=== PATIENT | female | born 1945 | race Caucasian/White ===

== ENCOUNTER → 2018-09-20 11:45 | Outpatient (CLI) | payer MEDICARE, SELFPAY ==
--- NOTE | 2018-09-20 11:52 | BI_ITS ---
MAMMOGRAPHY - BILATERAL SCREENING REASON FOR EXAM: Female, 73 years old. Routine annual screening examination. PERTINENT HISTORY: Non-contributory. Remote right stereotactic breast biopsy. TECHNIQUE: Digital bilateral breast debby (3D mammographic acquisition) in the CC and MLO projections. 2-D mediolateral oblique (MLO) and craniocaudad (CC) views of both breasts were obtained. CAD: Full Field Digital Mammography with Computer Added Detection was performed. COMPARISON: Comparison is made with prior study dated August 24, 2017 and August 21, 2016. FINDINGS: Breast Composition: The breasts are almost entirely fatty. There are no dominant masses or suspicious calcifications. Once again, a tissue clip marker is seen in the deep retroareolar region of the right breast. No other significant abnormalities are identified. There has been no significant change since the prior study. BI/SCREENING MAMM (CAD), BILAT IMPRESSION: Stable bilateral screening mammogram. Yearly follow-up mammogram recommended. (A) ASSESSMENT CATEGORY: BIRADS Category 2: Benign. A letter regarding these results will be sent to the patient by the facility within 30 days. Approximately 10% of breast cancers are not detected by mammography. A normal mammogram should not delay biopsy of a clinically suspicious abnormality. [id number] Electronically Signed: Jim Watters MD at 14:14 EST Tel [phone], Service support ,
== END ==
PROVIDERS: Family Provider Family Medicine; PCP Family Medicine; Referring Provider Family Medicine; Visit Provider Family Medicine
DX: Z12.31 Encounter for screening mammogram for malignant neoplasm of breast (principal)
CPT/HCPCS: 77063; 77067

== ENCOUNTER → 2018-10-09 13:11 | Outpatient (CLI) | payer MEDICARE, OTHER, SELFPAY ==
[2018-10-03 10:27] VITALS: BMI 50.1
--- NOTE | 2018-10-09 13:16 | CT_ITS ---
STUDY: CT ABDOMEN AND PELVIS WITH AND WITHOUT CONTRAST REASON FOR EXAM: Female, 73 years old. Gross hematuria. History of pulmonary hypertension. RADIATION DOSAGE (If Supplied By Facility): CTDIvol = ( 31.32 ) mGy, DLP = ( 2855.81 ) mGycm TECHNIQUE: Transaxial images were obtained from the dome of the diaphragm to the symphysis pubis without oral contrast. 100CC ml of Isovue 300 contrast was administered. Sagittal and coronal images were reconstructed. Individualized dose optimization techniques were used for this CT. COMPARISON: None. FINDINGS: The visualized lung bases are unremarkable. The visualized portions of the heart are within normal limits. There is decreased attenuation of the liver consistent with steatosis. Normal gallbladder and extrahepatic biliary system. There are multiple benign calcified granulomata of the spleen. Normal pancreas. Normal bilateral adrenal glands. Normal right kidney. Normal left kidney. The stomach is distended with residual food. Gastroparesis should be ruled out. Normal small intestine. Normal colon. The appendix is visualized and appears normal. There is diffuse atherosclerotic calcification of the abdominal aorta, without a demonstrated aneurysm. Normal inferior vena cava. There is borderline retroperitoneal lymphadenopathy with enlarged nodes no greater than 10mm in the short axis diameter. Small bilateral benign-appearing inguinal lymph nodes. Normal urinary bladder. Normal abdominal wall. There are diffuse degenerative changes of the visualized lumbar spine. Status post right hip replacement. CT/CT Abd/Pelvis W/WO Contrast IMPRESSION: Gastric distention with air and residual food. Electronically Signed: Jim Watters MD at 15:51 EST , Service support ,
--- OUTSIDE RECORDS SUMMARY | 2018-12-11 12:16 | XMS RPT_ITS ---
:1945 Author Organization OHIP Care Team Providers Name Role Phone YOLANDE CHAIREZ) Attending Unavailable YOLANDE CHAIREZ) Referring Unavailable YOLANDE CHAIREZ) Referring Unavailable THELMA SINGH Attending Unavailable ROYA DUCKWORTH (VACUUM COOKER OPERATOR) Referring Unavailable THELMA SINGH Referring Unavailable THELMA [...] Referring Unavailable BURSYOLANDE RAMIREZ) Referring Unavailable LUCIA, SFOIYA (PT) Attending Unavailable YOLANDE CHAIREZ) Referring Unavailable LUCIA, SOFIYA (PT) Attending Unavailable YOLANDE CHAIREZ) Referring Unavailable LUCIA, SOFIYA (PT) Attending Unavailable YOLANDE CHAIREZ) Referring Unavailable THELMA SINGH Attending Unavailable ROYA DUCKWORTH (VACUUM COOKER OPERATOR) Referring Unavailable LUCIA, SOFIYA (PT) Attending Unavailable [...] 10/07/2018 Active Gross hematuria / NA Active [facility] R31.0(ICD-10) [place] Repository 10/03/2018 Unknown I44.4 - Left MoodispaAlbaro martinez 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 / Hospital I44.4(ICD-10) Repository 10/03/2018 Unknown I45.10 - MoodispajuanAlbaro Active [place] Unspecified right [facility] bundle-branch Hospital block / Repository I45.10(ICD-10) 10/03/2018 Unknown I48.0 - Paroxysmal Moodisry Albaro Active [facility] atrial [facility] fibrillation [facility] I48.0(ICD-10) Repository 10/03/2018 Unknown I10 - Essential MoodisryAlbaro Active [facility] (primary) [facility] hypertension / Hospital I10(ICD-10) Repository 09/11/2018 Active Paroxysmal atrial NA Active [facility] fibrillation / [place] I48.0(ICD-10) Repository 09/11/2018 Active Obstructive sleep NA Active [facility] apnea (adult) [place] (pediatric) / Repository G47.33(ICD-10) 04/01/2018 Active Pain in left hip / NA Active [facility] M25.552(ICD-10) [place] Repository 03/26/2018 Active Other custodial NA Active [facility] (current) drug [facility] [place] therapy / Repository Z79.899(ICD-10) 03/04/2018 Active Other secondary NA Active [facility] pulmonary [facility] [place] hypertension / Repository I27.29(ICD-10) 02/21/2018 Active Unknown / THELMA SINGH Active [facility] UNK(Unknown) [place] Repository 01/03/2016 Active Essential NA Active [facility] (primary) [place] hypertension / Repository I10(ICD-10) 10/26/2010 Active Vitamin D NA Active [facility] deficiency, [place] unspecified / Repository E55.9(ICD-10) PROCEDURES PROCEDURES No Procedure Records FoundRESULTS RESULTS STRESS REPORT Observed: 10/11/2018 Status: F Source: [place] 9:05 AM [facility] REPOSITORY [facility] Cardiovascular Services [address] [place] [address] MR#: [id number] Acct: [id number] Name: VENICE CROFT Rep #: [id number] : 1945 73 From: Albaro Neville MD [...] not performed. This note was generated with Toptal dictation software. It may contain incorrect words, spelling, and punctuation that were not noted in checking the note before signing. 10/11/18904 <Electronically signed by Albaro Neville MD> Date Albaro Neville MD CC: Jose Miguel Chairez MD; Albaro Neville MD Date Dictated: 10/11/18901 Date Transcribed: 10/11/18901 Wharfinger Chief: PM Signed CT ABD/PELVIS W/WO Observed: 10/09/2018 Status: F Source: [place] CONTRAST 1:16 PM [facility] REPOSITORY [facility] Imaging Services [address] [place] [address] Abd/Pelvis W/WO Contrast MR#: [id number] Acct: [id number] Name: VENICE CROFT Rep #: [id number] : 1945 F 73 From: Jim Watters MD PCP: Jose Miguel Chairez MD Status: REG CLI Study: CT Abd/Pelvis W/WO Contrast Date of Exam: 10/09/18 Exam# [id number] Ordering Dr: Roslyn Garcia MANAGER AGRICULTURE-C STUDY: CT ABDOMEN AND PELVIS WITH AND [...] Jose Miguel Chairez MD; Roslyn Garcia NP Wharfinger Chief: Signed CBC AND DIFFERENTIAL Collected: 10/07/2018 Status: F Source: [place] 4:14 PM [facility] REPOSITORY TYPE CODE TESTS RESULT [...] k/uL Abs Lymph 1.38 LAB AMONO % [place]% 8.0 LAB AAMONO <0.87 k/uL Abs [place] 0.48 LAB AEOS % Eosin% 2.2 LAB AAEOS <0.46 k/uL Abs Eosin 0.13 LAB ABASO % Baso% 0.3 LAB AABASO <0.11 k/uL Abs Baso <0.03 LAB AUNRBC 0 /100 WBC NRBCs 0.0 LAB ABNRBC <0.01 k/uL Absolute nRBC <0.01 LAB DTYP DTYPE Auto Diff Performed By: #### CBCDIF, BMP #### [facility] [address] [place], [place] [address] BASIC METABOLIC PANL Collected: 10/07/2018 Status: F Source: [place] 4:14 PM [facility] REPOSITORY TYPE CODE TESTS RESULT OUT OF REFERENCE UNITS RANGE LAB GLU 74-99 mg/dL High Glucose 100 Result Comment: The [place] Diabetes Association (ADA) provides guidance for cutoff [...] Standards of Medical Care in Diabetes 2016, [place] Diabetes Association. Diabetes Care. 2016.39(Suppl 1). LAB [...] GFR. Performed By: #### CBCDIF, BMP #### [facility] [address] [place], [place] [address] PROGRESS Observed: 10/06/2018 Status: COMPLETED Source: [place] 12:36 PM [facility] REPOSITORY HNO ID: [id number] Author: Sofiya (Pt) Lucia Service: (none) Author [...] assessment of patient's response to intervention. Billing: [facility]: Manual Therapy (01355): 1:1 time: 45 minutes (3 units: 38-52 mins) Total time: 45 minutes Sofiya Myers PT CNTHERAPY Observed: 10/04/2018 Status: COMPLETED Source: [place] 1:15 PM [facility] REPOSITORY OT/PT/Speech Visit (PTWS) VENICE CROFT ([id number]) 1945 F Date Time Provider Department 10/04/18 1:15 PM SOFIYA MYERS (PT) PTWS Date Time Provider Department Center 10/04/2018 1:15 PM [id number], DIANA (PT)PTWS [facility] [place] Reason for Visit: Physical Therapy [503] Primary Visit Diagnosis:Pain in left hip [M25.552] Other Visit Diagnosis:Pain in the groin, left [R10.32] Allergies As of Date: 10/04/2018 Noted Allergy Reaction DANIEL INHIBITORS 06/15/2005 7 - Swelling Comments: Angioedema. Lips. LIPITOR (ATORVASTATIN CALCIUM) 06/15/2005 Comments: Muscle aches PANAFIL ([id number]-[id number]-[id number]*08/18/2005 5 - Intolerance Comments: ? AMPICILLIN 06/15/2005 [...] assessment of patient's response to intervention. Billing: [facility]: Manual Therapy (22477): 1:1 time: 45 minutes (3 units: 38-52 mins) Total time: 45 minutes Sofiya Myers PT Observed: 10/04/2018 Status: F Source: [place] URINE CULTURE 11:42 AM [facility] REPOSITORY Sp. Request/Comment: - Specimen received in preservative Culture Result - No growth (<1,000 CFU/ml) Performed By: #### URCUL #### [facility] [address] [place] [address] PROGRESS Observed: 10/04/2018 Status: COMPLETED Source: [place] 11:16 AM [facility] REPOSITORY HNO ID: [id number] Author: Janae Schneider Service: (none) Author Type: Physician Cable Installation Manager Type: Progress Notes Filed: 10/04/2018 2:22 PM [...] Morbid obesity with BMI of 50.0-59.9, adult ([facility]) - On home oxygen therapy - Open wound of knee, leg (except thigh), and ankle, complicated - JUSTINA (obstructive sleep apnea) BiPAP 13/8 nightly - Pulmonary hypertension (HCC) Seeing Dr. Singh - Pure hypercholesterolemia - Unspecified essential hypertension - Venous stasis dermatitis ALLERGIES Daniel Inhibitors; Lipitor [Atorvastatin Calcium]; Panafil [Ezewzs-Yroa-Bqmxrfqehtfys]; Ampicillin; Darvocet-N 100 [Propoxyphene N-Acetaminophen]; Percocet [Oxycodone-Acetaminophen] [...] 0 Occupational History Occupation Employer Comment Retired [employer] Social History Main Topics Smoking status: Never [...] coumadin. Urology consult scheduled for patient with [facility] for Sunday afternoon. We will send Cardiology update. - UA DIP, URINE (POC) - URINE CULTURE - CONSULT TO UROLOGY 2. Hematuria, unspecified type - ICD9: 599.70, ICD10: R31.9 See above. - UA DIP, URINE (POC) KOFI MARSHALL Observed: 10/04/2018 Status: COMPLETED Source: [place] 11:00 AM [facility] REPOSITORY Office Visit (FAMPWS) VENICE CROFT ([id number]) 1945 F Date Time Provider Department 10/04/18 [...] Morbid obesity with BMI of 50.0-59.9, adult ([facility]) - On home oxygen therapy - Open wound of knee, leg (except thigh), and ankle, complicated - JUSTINA (obstructive sleep apnea) BiPAP 29/04 nightly - Pulmonary hypertension ([facility]) Seeing Dr. Singh - Pure hypercholesterolemia - Unspecified essential hypertension - Venous stasis dermatitis ALLERGIES Daniel Inhibitors; Lipitor [Atorvastatin Calcium]; Panafil [Hfukjd-Uemq-Udqfrenjwthhm]; Ampicillin; Darvocet-N 100 [Propoxyphene N-Acetaminophen]; Percocet [Oxycodone-Acetaminophen] [...] 0 Occupational History Occupation Employer Comment Retired [employer] Social History Main Topics Smoking status: Never [...] coumadin. Urology consult scheduled for patient with [facility] for Sunday afternoon. We will [...] (ATORVASTATIN CALCIUM) 06/15/2005 Comments: Muscle aches PANAFIL ([id number]*08/18/2005 5 - Intolerance Comments: ? AMPICILLIN 06/15/2005 [...] 90 capsuleRfl: 3 UA DIP, URINE (POC) [[id number]] Order #: [id number] URINE CULTURE [SQURCUL] Order #: [id number] CONSULT TO UROLOGY [9495] Order #: [id number]: 1 Prescriptions as of 10/04/2018 Sig: WARFARIN [...] Hypertension [I10] INVALID FOR*06/13/2016 BMI 50.0-59.9, adult ([facility]) [Z68.43] INVALID FOR*06/16/2014 JUSTINA (obstructive sleep apnea) [G47.33] INVALID FOR* Pulmonary hypertension (HCC) [I27.20] INVALID FOR* BMI 45.0-49.9, adult (HCC) [Z68.42] INVALID FOR*10/15/2014 BMI 40.0-44.9, adult ([facility]) [Z68.41] INVALID FOR*03/28/2017 More... Allergic rhinitis [J30.9] [...] [R10.32] INVALID FOR* PAF (paroxysmal atrial fibrillation) ([facility]) [I48*INVALID FOR* Prescriptions ordered this encounter Disp [...] TIME W/INR Collected: 10/03/2018 Status: F Source: [place] [address]:10 PM [facility] REPOSITORY Order Comment: Comments: STANDING ORDER Comments: STANDING ORDER TYPE CODE TESTS RESULT OUT OF RANGE REFERENCE UNITS LAB L300.4150 11.7-14.9 SECONDS High PROTIME 26.9 LAB L300.4200 Normal INR 2.5 Performed By: #### L300.3900 #### [facility] [address] [place], [place], [address] BASIC METABOLIC Collected: 10/03/2018 Status: F Source: [place] PROFILE (BMP) 12:10 PM [facility] REPOSITORY TYPE CODE TESTS RESULT OUT OF [...] GAP 9 Performed By: #### L500.2500 #### [facility] [address] [place], [address] CARDIOLOGY VISIT Observed: 10/03/2018 Status: F Source: [place] REPORT 11:48 AM [facility] REPOSITORY [facility] [address] [place] [address] OFFICE VISIT Date of Service: 10/03/18 MR#: [id number] Acct: [id number] Name: VENICE CROFT Rep #: [id number] : 1945 Provider: Albaro Neville MD Age/Sex: 73/F Location: [facility] Status: Signed HPI HPI Details: VENICE CROFT, is a 73 F who presents to the office today for Outpatient cardiovascular consultation for concerns of underlying atrial fibrillation. 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 She was subsequently found to be in atrial fibrillation by ECG demonstrating left axis deviation with a right bundle branch block pattern and a left anterior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 pattern as well as potentially voltage criteria for LVH and a lateral [place] of indeterminate age which could not be [...] block. There is notation of possible lateral [place] of indeterminate age. She did have a transthoracic echocardiogram performed through the [facility] system. Per the report available for review [...] [History Confirmed 10/03/18] Fluticasone 0.05% [Flonase Nasal [place]] 1 spray NASAL DAILY 11/10/16 [History Confirmed [...] NC, BIPAP Follows with Dr. Thelma Singh, banking and finance instructor @ [facility]: Negative vomiting or [...] Observed: 10/03/2018 Status: F Source: [place] BY [facility] 10:22 AM [facility] REPOSITORY [facility] [address] [place] [address] 12 Lead EKG performed by [facility] 10/03/18 102 MR#: [id number] Acct: [id number] Name: VENICE CROFT Rep #: [id number] : 1945 73 From: Albaro Neville MD Attending Dr: Albaro Neville MD Status: DEP AMB Ordering Dr: Albaro Neville MD Date: 10/03/18 [place] [facility] F C Admitted: [facility]/12 Lead EKG performed by [facility] ECG Report Interpretation Atrial flutter-fibrillation - occasional ectopic ventricular beat Left axis deviationRight bundle branch blockLeft anterior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Anterior [place], age undetermined, cannot be excludedABNORMAL Electronically signed on 10/03/2018 at 18:19 by Albaro Neville Software Version 8610 10/03/18 1820 Date Albaro Neville MD CC: Jose Miguel Chairez MD Date Dictated: 10/03/18 102 Date Transcribed: 10/03/18 102 Wharfinger Chief: PM Signed PROGRESS Observed: 09/30/2018 Status: COMPLETED Source: [place] 9:48 AM [facility] REPOSITORY HNO ID: [id number] Author: Thelma Singh Service: (none) Author Type: Physician Type: Progress Notes Filed: 09/30/2018 9:58 AM Note Text: [facility] Respiratory [place], 09/03/2018 INTERVAL HISTORY: Patient is noticing increasing [...] to follow this result. Thelma Singh MD, [facility] [place] [facility] [address] [place] [address] P: [phone] F: [phone] [email or web address] PROTIME Collected: 09/27/2018 Status: F Source: [place] 11:36 AM [facility] REPOSITORY TYPE CODE TESTS RESULT OUT OF RANGE REFERENCE UNITS LAB PSEC 9.7-13.0 sec High PT Sec 26.8 LAB INR 0.9-1.3 High PT INR 2.7 Result Comment: Vitamin K Antagonist (VKA) Therapeutic Range: INR 2 to 3 (Target INR of 2.5) Note: For patients treated with VKA drugs, such as warfarin, the [place] [employer]icians 2012 Guideline recommends [...] Chest 2012, 141:7S-47S Leo CORNEJO et al. [facility] 2017, 70: 252-289 Performed By: #### PT #### [facility] [address] [place], [place] [address] PROGRESS Observed: 09/24/2018 Status: COMPLETED Source: [place] 2:11 PM [facility] REPOSITORY HNO ID: [id number] Author: Sofiya (Pt) Lucia Service: (none) Author [...] at this time Goals updated on 09/24/2018. [place] in home exercise program. Patient will decrease [...] to be seen for Therapeutic exercise;Manual therapy;Patient/Family/Caregiver Education;Self-long-term management;General Conditioning;Neuromuscular re-education PLAN FOR NEXT VISIT: [...] and assessment of patient's response to intervention. Self-Custodial Management: 1: Recommended she apply Eucerin, Aveeno, [...] Suggested she call her compression pump company ([employer]) to have them perform a pressure check on her pump. 4: Showed and demonstrated how to don her compression stocking by turning inside out. Skilled Intervention: Skilled judgment in the selection of proper modification for activity of daily living/home management based on clinical presentation, deficits, and needs. Billing: [facility]: Re-Evaluation (24846) Manual Therapy (14846): 1:1 time: 22 minutes (1 unit: 8-22 mins) Educ Home Mgmt (62748): 1:1 time: 8 minutes (1 unit: 8-22 mins) Total time: 45 minutes Sofiya Myers PT CNTHERAPY Observed: 09/24/2018 Status: COMPLETED Source: [place] 2:00 PM [facility] REPOSITORY OT/PT/Speech Visit (PTWS) VENICE CROFT ([id number]) 1945 F Date Time Provider Department 09/24/18 2:00 PM SOFIYA MYERS (PT) PTWS Date Time Provider Department Center 09/24/2018 2:00 PM [id number], DIANA (PT)PTWS [facility] Reason for Visit: PT Re-eval [891] Primary Visit Diagnosis:Lymphedema [I89.0] Other Visit Diagnoses:Pain in the groin, left [R10.32] Pain in left hip [M25.552] Allergies As of Date: 09/24/2018 Noted Allergy Reaction DANIEL INHIBITORS 06/15/2005 7 - Swelling Comments: Angioedema. Lips. LIPITOR (ATORVASTATIN CALCIUM) 06/15/2005 Comments: Muscle aches PANAFIL (WWXYSX-IHNU-[id number]*08/18/2005 5 - Intolerance Comments: ? AMPICILLIN 06/15/2005 [...] at this time Goals updated on 09/24/2018. [place] in home exercise program. Patient will decrease [...] to be seen for Therapeutic exercise;Manual therapy;Patient/Family/Caregiver Education;Self-long-term management;General Conditioning;Neuromuscular re-education PLAN FOR NEXT VISIT: [...] and assessment of patient's response to intervention. Self-Custodial Management: 1: Recommended she apply Eucerin, Aveeno, [...] Suggested she call her compression pump company ([employer]) to have them perform a pressure check on her pump. 4: Showed and demonstrated how to don her compression stocking by turning inside out. Skilled Intervention: Skilled judgment in the selection of proper modification for activity of daily living/home management based on clinical presentation, deficits, and needs. Billing: [facility]: Re-Evaluation (51385) Manual Therapy (74714): 1:1 time: 22 minutes (1 unit: 8-22 mins) Educ Home Mgmt (34327): 1:1 time: 8 minutes (1 unit: 8-22 mins) Total time: 45 minutes Sofiya Myers PT Previous Version PROTIME Collected: 09/24/2018 Status: F Source: [place] 1:10 PM [facility] REPOSITORY TYPE CODE TESTS RESULT OUT OF RANGE REFERENCE UNITS LAB PSEC 9.7-13.0 sec High PT Sec 26.8 LAB INR 0.9-1.3 High PT INR 2.7 Result Comment: Vitamin K Antagonist (VKA) Therapeutic Range: INR 2 to 3 (Target INR of 2.5) Note: For patients treated with VKA drugs, such as warfarin, the [place] [employer]icians 2012 Guideline recommends [...] 70: 252-289 Performed By: #### PT #### [facility] [address] [place], [place] [address] SCREENING MAMM (CAD), Observed: 09/20/2018 Status: F Source: [place] 11:52 AM [facility] REPOSITORY [facility] Imaging Services [address] [place] [address] SCREENING MAMM (CAD), BILAT MR#: [id number] Acct: [id number] Name: VENIEC CROFT Rep #: [id number] : 1945 F 73 From: Jim Watters MD PCP: Jose Miguel Chairez MD Status: [facility] Study: SCREENING MAMM (CAD), BILAT Date of Exam: 09/20/18 Exam# [id number] Ordering Dr: Jose Miguel Chairez MD MAMMOGRAPHY [...] delay biopsy of a clinically suspicious abnormality. [id number] Electronically Signed: Jim Watters MD at 14:14 EST Tel [phone], Service support , CC: Jose Miguel Chairez MD Wharfinger Chief: Signed PROGRESS Observed: 09/20/2018 Status: COMPLETED Source: [place] 11:01 AM [facility] REPOSITORY HNO ID: [id number] Author: Sofiya (Pt) Lucia Service: (none) Author [...] L groin pain. Recommended she see an grievance and appeals specialist due to her plateauing. Patient does seem to have increased hardness of the skin of her LE and is not finding her legs are softening after using her compression pump. Recommending she be re-evaluated for her lymphedema. Message sent to Dr. Ramos to place an order in [employer]. She will benefit from continued skilled therapy requiring re-evaluation of her legs for CDT in order to improve skin texture and decrease risk of skin infection. Functional gains: Increased independence with HEP Decreased intensity of pain Goals updated on 09/19/2018. [place] in home exercise program.--MET for current HEP [...] Current Status: Mobility: Walking and Moving Around: [address] [place] [address] 20-39% impaired Goal Status: Mobility: Walking and Moving Around: G8979 20-39% impaired Planned Interventions, Frequency, and Duration: 1 visit, 1 week Total Number of Visits Planned: 16 Patient to be seen for Therapeutic exercise;Manual therapy;Patient/Family/Caregiver Education;Self-long-term management;General Conditioning;Neuromuscular re-education PLAN FOR NEXT VISIT: [...] assessment of patient's response to intervention. Billing: [facility]: Therapeutic Exercise (98102): 1:1 time: 18 minutes (1 unit: 8-22 mins) Manual Therapy (70696): 1:1 time: 23 minutes (2 units: 23- 37 mins) Total time: 41 minutes Sofiya Myers PT CNTHERAPY Observed: 09/19/2018 Status: COMPLETED Source: [place] 10:00 AM [facility] REPOSITORY OT/PT/Speech Visit (PTWS) VENICE CROFT ([id number]) 1945 F Date Time Provider Department 09/19/18 10:00 AM SOFIYA MYERS (PT) PTWS Date Time Provider Department Center 09/19/2018 10:00 AM [id number], DIANA (PT)PTWS [facility] Reason for Visit: PT Progress Note [7856] Primary Visit Diagnosis:Pain in left hip [M25.552] Other Visit Diagnosis:Pain in the groin, left [R10.32] Allergies As of Date: 09/19/2018 Noted Allergy Reaction DANIEL INHIBITORS 06/15/2005 7 - Swelling Comments: Angioedema. Lips. LIPITOR (ATORVASTATIN CALCIUM) 06/15/2005 Comments: Muscle aches PANAFIL ([id number]-WKQE-[id number]*08/18/2005 5 - Intolerance Comments: ? AMPICILLIN 06/15/2005 [...] That Will Oversee The Plan Of Care: Soifya Myers PT Start of Care Date: 04/12/18 [...] L groin pain. Recommended she see an grievance and appeals specialist due to her plateauing. Patient does seem to have increased hardness of the skin of her LE and is not finding her legs are softening after using her compression pump. Recommending she be re-evaluated for her lymphedema. Message sent to Dr. Ramos to place an order in [employer]. She will benefit from continued skilled therapy requiring re-evaluation of her legs for CDT in order to improve skin texture and decrease risk of skin infection. Functional gains: Increased independence with HEP Decreased intensity of pain Goals updated on 09/19/2018. [place] in home exercise program.--MET for current HEP [...] to be seen for Therapeutic exercise;Manual therapy;Patient/Family/Caregiver Education;Self-long-term management;General Conditioning;Neuromuscular re-education PLAN FOR NEXT VISIT: [...] assessment of patient's response to intervention. Billing: [facility]: Therapeutic Exercise (46242): 1:1 time: 18 minutes (1 unit: 8-22 mins) Manual Therapy (83040): 1:1 time: 23 minutes (2 units: 23- 37 mins) Total time: 41 minutes Sofiya Myers PT PROTIME Collected: 09/19/2018 Status: F Source: [place] 9:47 AM [facility] REPOSITORY TYPE CODE TESTS RESULT OUT OF RANGE REFERENCE UNITS LAB PSEC 9.7-13.0 sec High PT Sec 21.6 LAB INR 0.9-1.3 High PT INR 2.2 Result Comment: Vitamin K Antagonist (VKA) Therapeutic Range: INR 2 to 3 (Target INR of 2.5) Note: For patients treated with VKA drugs, such as warfarin, the [place] [employer] Chest [employer]icians 2012 Guideline recommends [...] Chest 2012, 141:7S-47S Leo RA, et al. [facility] 2017, 70: 252-289 Performed By: #### PT #### [facility] [address] [place], [place] [address] PROTIME Collected: 09/16/2018 Status: F Source: [place] 9:31 AM [facility] REPOSITORY TYPE CODE TESTS RESULT OUT OF RANGE REFERENCE UNITS LAB PSEC 9.7-13.0 sec High PT Sec 15.6 LAB INR 0.9-1.3 High PT INR 1.5 Result Comment: Vitamin K Antagonist (VKA) Therapeutic Range: INR 2 to 3 (Target INR of 2.5) Note: For patients treated with VKA drugs, such as warfarin, the [place] [employer]icians 2012 Guideline recommends [...] Chest 2012, 141:7S-47S Leo CORNEJO et al. [facility] 2017, 70: [phone] Performed By: #### PT #### [facility] [address], [place] [address] FECAL OCCULT BLD Collected: 09/12/2018 Status: F Source: [place] TST 8:30 AM [facility] REPOSITORY TYPE CODE TESTS RESULT OUT OF REFERENCE UNITS RANGE LAB IFO Negative Immuno Negative FOB Result Comment: This test was developed and its performance characteristics determined by [facility]'s [facility] [place] ([facility] It has not been cleared or approved by the FDA. -[facility] is regulated under CLIA as qualified to perform high-complexity testing. This test is used for clinical purposes. It should not be regarded as investigational or for research. Performed By: #### IFOBT #### [facility] [address], [place] [address] PROGRESS Observed: 09/11/2018 Status: COMPLETED Source: [place] 4:20 PM [facility] REPOSITORY HNO ID: [id number] Author: Devonte Horta Service: (none) Author Type: [...] met Beta keron for ASHD with prior [place] or prior LVEF<40 (NQF 0070) - N/A [...] Morbid obesity with BMI of 50.0-59.9, adult ([facility]) - On home oxygen therapy - Open [...] multiple, benign - COLONOSCOP W/ OR W/O [facility] SPEC N/A 11/14/2016 repeat in 2 [...] 0 Occupational History Occupation Employer Comment Retired [employer] Social History Main Topics Smoking status: Never [...] MD CNNURSE Observed: 09/11/2018 Status: COMPLETED Source: [place] 3:30 PM [facility] REPOSITORY Nurse Visit (CAWSTR) VENICE CROFT ([id number]) 1945 F Date Time Provider Department 09/11/18 3:30 PM [facility] During your visit today, we recorded the following information about you: Referring Provider: DEVONTE HORTA [[id number]] Allergies As of Date: 09/11/2018 Noted Allergy Reaction DANIEL INHIBITORS 06/15/2005 7 - Swelling Comments: Angioedema. Lips. LIPITOR (ATORVASTATIN CALCIUM) 06/15/2005 Comments: Muscle aches PANAFIL ([id number]*08/18/2005 5 - Intolerance Comments: ? AMPICILLIN 06/15/2005 2 - Rash Comments: Bilateral arms. DARVOCET-N 100 (PROPOXYPHENE N-AC*01/31/2010 1 - Mental Status Change 14 - Other: See Comments Comments: Dizziness. PERCOCET (OXYCODONE-ACETAMINOPHEN)01/31/2010 1 - Mental Status Change Date Reviewed: 09/03/2018 Reviewed by: Thelma Singh - Fully Assessed Reason for Visit: Nurse Visit [792] Visit Diagnoses:PAF (paroxysmal atrial fibrillation) ([facility]) [I48.0] Essential hypertension [I10] Prescriptions as of [...] 09/12/18 PROTIME Collected: 09/11/2018 Status: F Source: [place] 12:05 PM [facility] REPOS[facility]ORY TYPE CODE TESTS RESULT OUT OF RANGE REFERENCE UNITS LAB PSEC 9.7-13.0 sec PT Sec 10.3 LAB INR 0.9-1.3 PT INR 1.0 Result Comment: Vitamin K Antagonist (VKA) Therapeutic Range: INR 2 to 3 (Target INR of 2.5) Note: For patients treated with VKA drugs, such as warfarin, the [place] [employer] 2012 Guideline recommends [...] Chest 2012, 141:7S-47S Leo CORNEJO et al. [facility] 2017, 70: 252-289 Performed By: #### PT #### [facility] [address] [place], [place] [address] BASIC METABOLIC PANL Collected: 09/11/2018 Status: F Source: [place] 12:04 PM [facility] REPOSITORY TYPE CODE TESTS RESULT OUT OF [...] GFR. MAGNESIUM Collected: 09/11/2018 Status: F Source: [place] 12:04 PM [facility] REPOSITORY TYPE CODE TESTS RESULT OUT OF REFERENCE UNITS RANGE LAB MG 1.7-2.3 mg/dL Magnesium 1.8 CBC Collected: 09/11/2018 Status: F Source: [place] 12:04 PM [facility] REPOSITORY TYPE CODE TESTS RESULT OUT OF [...] nRBC <0.01 Performed By: #### CBC #### [facility] [address] [place], [place] [address] TSH Collected: 09/11/2018 Status: F Source: [place] 12:03 PM [facility] REPOSITORY TYPE CODE TESTS RESULT OUT OF RANGE REFERENCE UNITS LAB TSH 0.400-5.500 uU/mL TSH 2.500 Performed By: #### TSH #### [facility] [address], [place] [address] EKG1 Observed: 09/11/2018 Status: F Source: [place] 11:36 AM [facility] REPOSITORY NAME : VENICE CROFT PID : [id number] : 1945 Gender : Female Race : [...] ms QTC Calculation(Bezet) : 497 ms R Wallace : -57 degrees T Wallace : 22 degrees Test Reason : Location : 136 : [place] Overread By : DEVONTE HORTA MD Edited By : DEVONTE HORTA MD Referred By : DEVONTE HORTA Acquired by : SWATI BAKER Observed: 09/11/2018 Status: COMPLETED Source: [place] 10:30 AM [facility] REPOSITORY Office Visit (CAWSTR) VENICE CROFT ([id number]) 1945 F Date Time Provider Department 09/11/18 [...] met Beta keron for ASHD with prior [place] or prior LVEF<40 (NQF 0070) - N/A [...] 0 Occupational History Occupation Employer Comment Retired [employer] Social History Main Topics Smoking status: Never [...] the following areas and commit to making custodial changes. EAT A WHOLE FOOD, PLANT BASED [...] in your area. Referring Provider: DEVONTE HORTA [[id number]] Allergies As of Date: 09/11/2018 Noted Allergy Reaction DNAIEL INHIBITORS 06/15/2005 7 - Swelling Comments: Angioedema. Lips. LIPITOR (ATORVASTATIN CALCIUM) 06/15/2005 Comments: Muscle aches PANAFIL ([id number]*08/18/2005 5 - Intolerance Comments: ? AMPICILLIN 06/15/2005 [...] Order(s):ECG COMPLETE W INTERPRETATION [ECG01] Order #: [id number] FUTURE PROTHROMBIN TIME/PT [SQPT] Order #: [id number] STANDING BASIC METABOLIC PNL [SQBMP] Order #: [id number] FUTURE MAGNESIUM BLD [SQMG1] Order #: [id number] FUTURE TSH BLD [SQTSH] Order #: [id number] FUTURE CBC [SQCBC] Order #: [id number] FUTURE FECAL OCCULT BLOOD TEST [SQIFOBT] Order #: [id number] FUTURE warfarin (COUMADIN) 4 mg tabletTake 1 [...] the following areas and commit to making custodial changes. EAT A WHOLE FOOD, PLANT BASED [...] 09/11/18 PROGRESS Observed: 09/05/2018 Status: COMPLETED Source: [place] 10:24 AM [facility] [place] REPOSITORY HNO ID: [id number] Author: Sofiya Myers Service: (none) Author Type: [...] her L hip. Nedra has the wrap constitution party at nondenominational; she will be sitting for [...] assessment of patient's response to intervention. Billing: [facility]: Therapeutic Exercise (15259): 1:1 time: 37 minutes (2 units: 23-37 mins) Manual Therapy (45670): 1:1 time: 8 minutes (1 unit: 8-22 mins) Total time: 45 minutes Sofiya Myers PT CNTHERAPY Observed: 09/03/2018 Status: COMPLETED Source: [place] 11:45 AM [facility] REPOSITORY OT/PT/Speech Visit (PTWS) VENICE CROFT ([id number]) 1945 F Date Time Provider Department 09/03/18 11:45 AM SOFIYA MYERS (PT) PTWS Date Time Provider Department Center 09/03/2018 11:45 AM [id number], DIANA (PT)PTWS [facility] Reason for Visit: Physical Therapy [503] Primary Visit Diagnosis:Pain in left hip [M25.552] Other Visit Diagnosis:Pain in the groin, left [R10.32] Allergies As of Date: 09/03/2018 Noted Allergy Reaction DANIEL INHIBITORS 06/15/2005 7 - Swelling Comments: Angioedema. Lips. LIPITOR (ATORVASTATIN CALCIUM) 06/15/2005 Comments: Muscle aches PANAFIL ([id number]-[id number]-[id number]*08/18/2005 5 - Intolerance Comments: ? AMPICILLIN 06/15/2005 [...] her legs. Doing an echo cardiogram after [place] to get her heart checked out. Yesterday and today seem easier for patient to move. Standing for greater than 60 minutes stuffing stockings went ok. Had to sit down because tired but had no sharp pains in her L hip. Nedra has the wrap constitution party at nondenomin[employer]; she will be sitting for [...] assessment of patient's response to intervention. Billing: [facility]: Therapeutic Exercise (66035): 1:1 time: 37 minutes (2 units: 23-37 mins) Manual Therapy (53466): 1:1 time: 8 minutes (1 unit: 8-22 mins) Total time: 45 minutes Sofiya Myers PT SWATI Observed: 09/03/2018 Status: COMPLETED Source: [place] 9:30 AM [facility] REPOSITORY Office Visit (PULMWS) ZEKEVENICE ([id number]) 1945 F Date Time Provider Department 09/03/18 9:30 AM THELMA SINGH During your visit today, we recorded the following information about you: Pulse Respiration Blood pressure Weight 76/minute 20/minute 118/68 136.5 kg Yenifer Myers LPN 09/03/2018 9:41 AM Attested Attestation signed by Thelma Singh at 09/30/2018 9:48 AM Reviewed with patient, [...] GI: denies heartburn. denies dysphagia. denies diarrhea. 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 denies hesitancy. denies nocturia. Menses: [...] to follow this result. Thelma Singh MD, [facility] [address] [address] P: [phone] F: [phone] [email or web address] Thelma Singh MD 09/30/2018 9:58 AM Signed [facility], 09/03/2018 INTERVAL HISTORY: Patient is noticing increasing [...] to follow this result. Thelma Singh MD, [facility] Respiratory [place] [facility] [address] [place] [address] P: [phone] F: [phone] Referring Provider: ROYA DUCKWORTH ([facility]) [[id number]] Allergies As of Date: 09/03/2018 Noted Allergy Reaction DANIEL INHIBITORS 06/15/2005 7 - Swelling Comments: Angioedema. Lips. LIPITOR (ATORVASTATIN CALCIUM) 06/15/2005 Comments: Muscle aches PANAFIL ([id number]*08/18/2005 5 - Intolerance Comments: ? AMPICILLIN 06/15/2005 [...] BiPAP [G47.33] Morbid obesity (HCC) [E66.01] Order(s):ECHO [898067] Order #: [id number]: 1 FUTURE Prescriptions as of 09/03/2018 Sig: [...] to follow this result. Thelma Singh MD, [facility] [place] [facility] [address] [place] [address] P: [phone] F: [phone] [email or web address] Visit Notes: >> Yenifer Myers LPN john Sep 03, 2018 9:23 AM Status: Attested [...] GI: denies heartburn. denies dysphagia. denies diarrhea. 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 denies hesitancy. denies nocturia. Menses: post menopausal Musculoskeletal: notes groin and hip pain. Currently attending PT. Neuro: denies headache, denies focal weakness. denies tremor. Skin: denies rash. Otherwise negative. Follow Up: Discussed this visit Follow-up and Disposition History Recorded Encounter Status:Closed by THELMA SINGH MD on 09/30/18 PROGRESS Observed: 08/26/2018 Status: COMPLETED Source: [place] 10:30 AM [facility] REPOSITORY [facility] ID: [id number] Author: Sofiya (Pt) Lucia Service: (none) Author [...] assessment of patient's response to intervention. Billing: [facility]: Therapeutic Exercise (62190): 1:1 time: 32 minutes (2 units: 23-37 mins) Manual Therapy (10711): 1:1 time: 8 minutes (1 unit: 8-22 mins) Total time: 40 minutes Sofiya Myers PT CNTHERAPY Observed: 08/22/2018 Status: COMPLETED Source: [place] 2:45 PM [facility] REPOSITORY OT/PT/Speech Visit (PTWS) VENICE CROFT ([id number]) 1945 F Date Time Provider Department 08/22/18 2:45 PM SOFIYA MYERS (PT) PTWS Date Time Provider Department Center 08/22/2018 2:45 PM [id number], DIANA (PT)PTWS [facility] Reason for Visit: Physical Therapy [503] Primary Visit Diagnosis:Pain in left hip [M25.552] Other Visit Diagnosis:Pain in the groin, left [R10.32] Allergies As of Date: 08/22/2018 Noted Allergy Reaction DANIEL INHIBITORS 06/15/2005 7 - Swelling Comments: Angioedema. Lips. LIPITOR (ATORVASTATIN CALCIUM) 06/15/2005 Comments: Muscle aches PANAFIL ([id number]*08/18/2005 5 - Intolerance Comments: ? AMPICILLIN 06/15/2005 [...] assessment of patient's response to intervention. Billing: [facility]: Therapeutic Exercise (13382): 1:1 time: 32 minutes (2 units: 23-37 mins) Manual Therapy (69610): 1:1 time: 8 minutes (1 unit: 8-22 mins) Total time: 40 minutes Sofiya Myers PT PROGRESS Observed: 08/13/2018 Status: COMPLETED Source: [place] 10:24 AM [facility] REPOSITORY O ID: [id number] Author: Sofiya (Pt) Lucia Service: (none) Author [...] from mat table Goals updated on 08/13/2018. [place] in home exercise program.--MET for current HEP [...] Goal Status: Mobility: Walking and Moving Around: G89[facility] 20-39% impaired Progress Report: 08/13/2018 Current Status: Mobility: Walking and Moving Around: G89[facility] 20-39% impaired Goal Status: Mobility: Walking and Moving Around: G8979 20-39% impaired Planned Interventions, Frequency, and Duration: 1x/week, 4 weeks Total Number of Visits Planned: 16 Patient to be seen for Therapeutic exercise;Manual therapy;Patient/Family/Caregiver Education;Modalities;Self- long-term management;Functional training;General Conditioning;Gait Training;Neuromuscular re-education;Therapeutic activitiesUltrasound PLAN [...] assessment of patient's response to intervention. Billing: [facility]: Therapeutic Exercise (47955): 1:1 time: 37 minutes (2 units: 23-37 mins) Manual Therapy (25139): 1:1 time: 8 minutes (1 unit: 8-22 mins) Total time: 45 minutes Sofiya Myers PT CNTHERAPY Observed: 08/13/2018 Status: COMPLETED Source: [place] 10:00 AM [facility] REPOSITORY OT/PT/Speech Visit (PTWS) VENICE CROFT ([id number]) 1945 F Date Time Provider Department 08/13/18 10:00 AM SOFIYA MYERSPT) PTWS Date Time Provider Department Center 08/13/2018 10:00 AM [id number], DIANA (PT)PTWS [facility] Reason for Visit: PT Progress Note [1596] Primary Visit Diagnosis:Pain in left hip [M25.552] Other Visit Diagnosis:Pain in the groin, left [R10.32] Allergies As of Date: 08/13/2018 Noted Allergy Reaction DANIEL INHIBITORS 06/15/2005 7 - Swelling Comments: Angioedema. Lips. LIPITOR (ATORVASTATIN CALCIUM) 06/15/2005 Comments: Muscle aches PANAFIL ([id number]*08/18/2005 5 - Intolerance Comments: ? AMPICILLIN 06/15/2005 [...] from mat table Goals updated on 08/13/2018. [place] in home exercise program.--MET for current HEP [...] be seen for Therapeutic exercise;Manual therapy;Patient/Family/Caregiver Education;Modalities;Self- long-term management;Functional training;General Conditioning;Gait Training;Neuromuscular re-education;Therapeutic activitiesUltrasound PLAN [...] assessment of patient's response to intervention. Billing: [facility]: Therapeutic Exercise (21793): 1:1 time: 37 minutes (2 units: 23-37 mins) Manual Therapy (63860): 1:1 time: 8 minutes (1 unit: 8-22 mins) Total time: 45 minutes Sofiya Myers PT PROGRESS Observed: 08/10/2018 Status: COMPLETED Source: [place] 12:05 [facility] REPOSITORY O ID: [id number] Author: Sofiya Myers Service: (none) Author Type: [...] assessment of patient's response to intervention. Billing: [facility]: Therapeutic Exercise (78342): 1:1 time: 35 minutes (2 units: 23-37 mins) Manual Therapy (79562): 1:1 time: 15 minutes (1 unit: 8-22 mins) Total time: 50 minutes Sofiya Myers PT CNTHERAPY Observed: 08/06/2018 Status: COMPLETED Source: [place] 10:00 AM [facility] REPOSITORY OT/PT/Speech Visit (PTWS) VENICE CROFT ([id number]) 1945 F Date Time Provider Department 08/06/18 10:00 AM SOFIYA MYERSPT) PTWS Date Time Provider Department Center 08/06/2018 10:00 AM [id number], DIANA (PT)PTWS [facility] Reason for Visit: Physical Therapy [503] Primary Visit Diagnosis:Pain in left hip [M25.552] Other Visit Diagnosis:Pain in the groin, left [R10.32] Allergies As of Date: 08/06/2018 Noted Allergy Reaction DANIEL INHIBITORS 06/15/2005 7 - Swelling Comments: Angioedema. Lips. LIPITOR (ATORVASTATIN CALCIUM) 06/15/2005 Comments: Muscle aches PANAFIL ([id number]*08/18/2005 5 - Intolerance Comments: ? AMPICILLIN 06/15/2005 [...] assessment of patient's response to intervention. Billing: [facility]: Therapeutic Exercise (04936): 1:1 time: 35 minutes (2 units: 23-37 mins) Manual Therapy (89939): 1:1 time: 15 minutes (1 unit: 8-22 mins) Total time: 50 minutes Sofiya Myers PT COMP METABOLIC PANEL Collected: 08/01/2018 Status: F Source: [place] 10:20 AM [facility] [place] REPOSITORY TYPE CODE TESTS RESULT OUT OF REFERENCE UNITS RANGE LAB TP 6.3-8.0 g/dL Protein, Total 7.2 LAB ALB 3.9-4.9 g/dL Albumin 4.2 LAB CA 8.5-10.2 mg/dL Calcium, Total 9.3 LAB TBIL 0.2-1.3 mg/dL Bilirubin, Total 0.5 LAB ALKP 34-123 U/L Alkaline Phosphatase 62 LAB AST 13-35 U/L AST 16 LAB GLU 74-99 mg/dL Glucose High 100 Result Comment: The [place] [employer] (ADA) provides guidance for cutoff [...] Standards of Medical Care in Diabetes 2016, [place] [employer]. Diabetes Care. 2016.39(Suppl 1). LAB [...] actual GFR. Performed By: #### CMP #### [facility] [address] [place], [place] [address] CNOV Observed: 08/01/2018 Status: COMPLETED Source: [place] 9:40 AM [facility] REPOSITORY Office Visit (FAMPWS) VENICE CROFT ([id number]) 1945 F Date Time Provider Department 08/01/18 [...] Morbid obesity with BMI of 50.0-59.9, adult ([facility]) - On home oxygen therapy - Open wound of knee, leg (except thigh), and ankle, complicated - JUSTINA (obstructive sleep apnea) uses bipap nightly - Pulmonary hypertension ([facility]) Seeing Dr. Singh - Pure hypercholesterolemia - Unspecified essential hypertension - Venous stasis dermatitis Previous Surgical History PAST SURGICAL HISTORY Procedure Laterality Date - BX OF BREAST; INCISIONAL Bx of breast, incisional multiple, benign - COLONOSCOP W/ OR W/O [facility] SPEC N/A 11/14/2016 repeat in 2 [...] 0 Occupational History Occupation Employer Comment Retired [employer] Social History Main Topics Smoking status: Never [...] for annual exam in one year. - [facility] SCREENING Yolande Chairez MD Referring Provider: YOLANDE CHAIREZ) [[id number]] Allergies As of Date: 08/01/2018 Noted Allergy Reaction DANIEL INHIBITORS 06/15/2005 7 - Swelling Comments: Angioedema. Lips. LIPITOR (ATORVASTATIN CALCIUM) 06/15/2005 Comments: Muscle aches PANAFIL ([id number]*08/18/2005 5 - Intolerance Comments: ? AMPICILLIN 06/15/2005 [...] [Z12.31] Order(s):COMP METABOLIC PANEL [SQCMP] Order #: [id number] FUTURE ENEDELIA SCREENING [[id number]] Order #: [id number] FUTURE Prescriptions as of 08/01/2018 Sig: SIMVASTATIN [...] 08/01/18 PROGRESS Observed: 08/01/2018 Status: COMPLETED Source: [place] 9:34 AM [facility] REPOSITORY HNO ID: [id number] Author: Yolande Foss) Mihaela Service: (none) Author [...] apnea) uses bipap nightly - Pulmonary hypertension ([facility]) Seeing Dr. Singh - Pure hypercholesterolemia - Unspecified essential hypertension - Venous stasis dermatitis Previous Surgical History PAST SURGICAL HISTORY Procedure Laterality Date - BX OF BREAST; INCISIONAL Bx of breast, incisional multiple, benign - COLONOSCOP W/ OR W/O [facility] SPEC N/A 11/14/2016 repeat in 2 [...] 0 Occupational History Occupation Employer Comment Retired [employer] Social History Main Topics Smoking status: Never [...] MD PROGRESS Observed: 07/31/2018 Status: COMPLETED Source: [place] 1:45 PM [facility] REPOSITORY HNO ID: [id number] Author: Sofiya (Pt) Lucia Service: (none) Author [...] assessment of patient's response to intervention. Billing: [facility]: Therapeutic Exercise (07331): 1:1 time: 27 minutes (2 units: 23-37 mins) Manual Therapy (57254): 1:1 time: 18 minutes (1 unit: 8-22 mins) Total time: 45 minutes Sofiya Myers PT PROGRESS Observed: 07/31/2018 Status: COMPLETED Source: [place] 9:30 AM [facility] [place] REPOSITORY HNO ID: [id number] Author: Bruce Rinaldi Service: (none) Author Type: [...] for MRSE infection, prosthetic right knee PLAN: Npycsynwakc303 mg daily, indefinite Follow-up one year SIGNATURE: Bruce Rinaldi MD DATE: July 31, 2018 TIME: 9:48 AM Copy to: [place] [id number] [facility] [address] CNTHERAPY Observed: 07/30/2018 Status: COMPLETED Source: [place] 10:00 AM [facility] REPOSITORY OT/PT/Speech Visit (PTWS) VENICE CROFT ([id number]) 1945 F Date Time Provider Department 07/30/18 10:00 AM SOFIYA MYERS (PT) PTWS Date Time Provider Department Center 07/30/2018 10:00 AM [id number], DIANA (PT)PTWS [facility] Reason for Visit: Physical Therapy [503] Primary Visit Diagnosis:Pain in left hip [M25.552] Other Visit Diagnosis:Pain in the groin, left [R10.32] Allergies As of Date: 07/30/2018 Noted Allergy Reaction DANIEL INHIBITORS 06/15/2005 7 - Swelling Comments: Angioedema. Lips. LIPITOR (ATORVASTATIN CALCIUM) 06/15/2005 Comments: Muscle aches PANAFIL ([id number]*08/18/2005 5 - Intolerance Comments: ? AMPICILLIN 06/15/2005 [...] assessment of patient's response to intervention. Billing: [facility]: Therapeutic Exercise (11685): 1:1 time: 27 minutes (2 units: 23-37 mins) Manual Therapy (45584): 1:1 time: 18 minutes (1 unit: 8-22 mins) Total time: 45 minutes Sofiya Myers PT PROGRESS Observed: 07/25/2018 Status: COMPLETED Source: [place] 11:02 AM [facility] RE[facility]IT[facility] HNO ID: [id number] Author: Sofiya Myers Service: (none) Author Type: [...] assessment of patient's response to intervention. Billing: [facility]: Therapeutic Exercise (53480): 1:1 time: 30 minutes (2 units: 23-37 mins) Manual Therapy (91617): 1:1 time: 15 minutes (1 unit: 8-22 mins) Total time: 45 minutes Sofiya Myers PT CNTHERAPY Observed: 07/25/2018 Status: COMPLETED Source: [place] 9:15 AM [facility] REPOSITORY OT/PT/Speech Visit (PTWS) VENICE CROFT ([id number]) 1945 F Date Time Provider Department 07/25/18 9:15 AM SOFIYA MYERSPT) PTWS Date Time Provider Department Center 07/25/2018 9:15 AM [id number], DIANA (PT)PTVICKEY [facility] Reason for Visit: Physical Therapy [503] Primary Visit Diagnosis:Pain in left hip [M25.552] Other Visit Diagnosis:Pain in the groin, left [R10.32] Allergies As of Date: 07/25/2018 Noted Allergy Reaction DANIEL INHIBITORS 06/15/2005 7 - Swelling Comments: Angioedema. Lips. LIPITOR (ATORVASTATIN CALCIUM) 06/15/2005 Comments: Muscle aches PANAFIL ([id number]*08/18/2005 5 - Intolerance Comments: ? AMPICILLIN 06/15/2005 [...] assessment of patient's response to intervention. Billing: [facility]: Therapeutic Exercise (40493): 1:1 time: 30 minutes (2 units: 23-37 mins) Manual Therapy (30354): 1:1 time: 15 minutes (1 unit: 8-22 mins) Total time: 45 minutes Sofiya Myers PT PROGRESS Observed: 07/21/2018 Status: COMPLETED Source: [place] 11:47 AM [facility] [place] REPOSITORY HNO ID: [id number] Author: Sofiya (Willis) Lucia Service: (none) Author [...] intensity of pain Goals updated on 07/16/2018. [place] in home exercise program.--MET for current HEP [...] be seen for Therapeutic exercise;Manual therapy;Patient/Family/Caregiver Education;Modalities;Self- long-term management;Functional training;General Conditioning;Gait TrainingUltrasound PLAN FOR NEXT [...] assessment of patient's response to intervention. Billing: [facility]: Therapeutic Exercise (87427): 1:1 time: 24 minutes (2 units: 23-37 mins) Manual Therapy (82632): 1:1 time: 18minutes (1 unit: 8-22 mins) Total time: 42 minutes Sofiya Myers PT CNTHERAPY Observed: 07/16/2018 Status: COMPLETED Source: [place] 10:00 AM [facility] RE[facility] OT/PT/Speech Visit (PTWS) VENICE CROFT ([id number]) 1945 F Date Time Provider Department 07/16/18 10:00 AM SOFIYA MYERS (PT) PTWS Date Time Provider Department Center 07/16/2018 10:00 AM [id number], DIANA (PT)PTWS [facility] Reason for Visit: PT Progress Note [1596] Primary Visit Diagnosis:Pain in left hip [M25.552] Other Visit Diagnosis:Pain in the groin, left [R10.32] Allergies As of Date: 07/16/2018 Noted Allergy Reaction DANIEL INHIBITORS 06/15/2005 7 - Swelling Comments: Angioedema. Lips. LIPITOR (ATORVASTATIN CALCIUM) 06/15/2005 Comments: Muscle aches PANAFIL ([id number]*08/18/2005 5 - Intolerance Comments: ? AMPICILLIN 06/15/2005 [...] intensity of pain Goals updated on 07/16/2018. [place] in home exercise program.--MET for current HEP [...] be seen for Therapeutic exercise;Manual therapy;Patient/Family/Caregiver Education;Modalities;Self- long-term management;Functional training;General Conditioning;Gait TrainingUltrasound PLAN FOR NEXT [...] assessment of patient's response to intervention. Billing: [facility]: Therapeutic Exercise (40792): 1:1 time: 24 minutes (2 units: 23-37 mins) Manual Therapy (91204): 1:1 time: 18minutes (1 unit: 8-22 mins) Total time: 42 minutes Sofiya Myers PT PROGRESS Observed: 07/12/2018 Status: COMPLETED Source: [place] 12:09 PM [facility] REPOSITORY HNO ID: [id number] Author: Marci Muhammad LPN Service: (none) Author Type: (none) Type: Progress Notes Filed: 07/12/2018 12:09 PM Note Text: 73 year old female here for INACTIVATED INFLUENZA VACCINE. [id number] Season Patient is identified by name and date of : Yes [] CONTRAINDICATIONS color enhanced section Age less than 6 months? No Allergy to eggs, chicken, chicken feathers, or chicken dander? No Allergy to thimerosal (a preservative) or formaldehyde, gelatin? No History of severe reaction to any vaccine component or a previous dose of influenza vaccination? No History of Guillain-[place] Syndrome within 6 weeks after a previous [...] sheet given? Yes See immunization activity in [facility] for details of immunizations adminstered today. Patient age: [age] year old For The 1580-2339 Flu Season 6-35 months old: Fluzone 0.25 [...] time. CNNURSE Observed: 07/12/2018 Status: COMPLETED Source: [place] 11:50 AM [facility] REPOSITORY Nurse Visit (FAMPWS) VENICE CROFT ([id number]) 1945 F Date Time Provider Department 07/12/18 11:50 AM [place] NURSE FAMPWS During your visit today, we [...] dose of influenza vaccination? No History of Guillain-[place] Syndrome within 6 weeks after a previous [...] sheet given? Yes See immunization activity in [facility] for details of immunizations adminstered today. Patient age: [age] year old For The 6641-6802 Flu Season 6-35 months old: Fluzone 0.25 [...] (ATORVASTATIN CALCIUM) 06/15/2005 Comments: Muscle aches PANAFIL ([id number]*08/18/2005 5 - Intolerance Comments: ? AMPICILLIN 06/15/2005 [...] [Z23] Order(s):INFLUENZA SEASONAL HIGH DOSE AGE 65+ [[id number]] Order #: [id number] Prescriptions as of 07/12/2018 Sig: SIMVASTATIN 20 [...] [R10.32] INVALID FOR* Encounter Status:Closed by MARCI MUHAMMAD LPN on 07/12/18 PROGRESS Observed: 07/11/2018 Status: COMPLETED Source: [place] 10:50 AM [facility] REPOSITORY O ID: [id number] Author: Sofiya (Pt) Lucia Service: (none) Author [...] provided in selection of appropriate interventions. Billing: [facility]: Therapeutic Exercise (95308): 1:1 time: 42 minutes (3 units: 38-52 mins) Total time: 42 minutes Sofiya Myers PT CNTHERAPY Observed: 07/09/2018 Status: COMPLETED Source: [place] 10:45 AM [facility] REPOS[facility] OT/PT/Speech Visit (PTWS) VENICE CROFT ([id number]) 1945 F Date Time Provider Department 07/09/18 10:45 AM SOFIYA MYERSPT) PTWS Date Time Provider Department Center 07/09/2018 10:45 AM [id number], DIANA (PT)PTWS [facility] Reason for Visit: Physical Therapy [503] Primary Visit Diagnosis:Pain in left hip [M25.552] Other Visit Diagnosis:Pain in the groin, left [R10.32] Allergies As of Date: 07/09/2018 Noted Allergy Reaction DANIEL INHIBITORS 06/15/2005 7 - Swelling Comments: Angioedema. Lips. LIPITOR (ATORVASTATIN CALCIUM) 06/15/2005 Comments: Muscle aches PANAFIL ([id number]*08/18/2005 5 - Intolerance Comments: ? AMPICILLIN 06/15/2005 [...] provided in selection of appropriate interventions. Billing: [facility]: Therapeutic Exercise (85305): 1:1 time: 42 minutes (3 units: 38-52 mins) Total time: 42 minutes Sofiya Myers PT PROGRESS Observed: 06/18/2018 Status: COMPLETED Source: [place] 10:12 AM [facility] REPOSIT[facility] HNO ID: [id number] Author: Sofiya (Pt) Lucia Service: (none) Author [...] home exercise program as above (*) Billing: [facility]: Therapeutic Exercise (93576): 1:1 time: 40 minutes (3 units: 38-52 mins) Total time: 40 minutes Sofiya Myers PT CNTHERAPY Observed: 06/18/2018 Status: COMPLETED Source: [place] 10:00 AM [facility] REPOS[facility] OT/PT/Speech Visit (PTWS) VENICE CROFT ([id number]) 1945 F Date Time Provider Department 06/18/18 10:00 AM SOFIYA MYERSPT) PTWS Date Time Provider Department Center 06/18/2018 10:00 AM [id number], DIANA (PT)PTWS [facility] Reason for Visit: Physical Therapy [503] Primary Visit Diagnosis:Pain in left hip [M25.552] Other Visit Diagnosis:Pain in the groin, left [R10.32] Allergies As of Date: 06/18/2018 Noted Allergy Reaction DANIEL INHIBITORS 06/15/2005 7 - Swelling Comments: Angioedema. Lips. LIPITOR (ATORVASTATIN CALCIUM) 06/15/2005 Comments: Muscle aches PANAFIL ([id number]*08/18/2005 5 - Intolerance Comments: ? AMPICILLIN 06/15/2005 [...] home exercise program as above (*) Billing: [facility]: Therapeutic Exercise (16542): 1:1 time: 40 minutes (3 units: 38-52 mins) Total time: 40 minutes Sofiya Myers PT PROGRESS Observed: 06/11/2018 Status: COMPLETED Source: [place] 10:15 AM [facility] REPOS[facility] O ID: [id number] Author: Sofiya WisePtMary Kate Myers Service: (none) [...] independence with HEP Goals updated on 06/11/2018. [place] in home exercise program.--MET for current HEP [...] be seen for Therapeutic exercise;Manual therapy;Patient/Family/Caregiver Education;Modalities;Self- long-term management;Functional training;General ConditioningUltrasound PLAN FOR NEXT VISIT: [...] needs. Patient response monitored throughout treatment. Billing: [facility]: Therapeutic Exercise (18883): 1:1 time: 15 minutes (1 unit: 8-22 mins) Manual Therapy (48078): 1:1 time: 10 minutes (1 unit: 8-22 mins) Modalities Ultrasound (74233) 1:1 time: 15 minutes1 unit: 8-22 mins Total time: 40 minutes Sofiya Myers PT CNTHERAPY Observed: 06/11/2018 Status: COMPLETED Source: [place] 10:00 AM [facility] RE[facility] OT/PT/Speech Visit (PTWS) VENICE CROFT ([id number]) 1945 F Date Time Provider Department 06/11/18 10:00 AM SOFIYA MYERS (PT) PTWS Date Time Provider Department Center 06/11/2018 10:00 AM [id number], DIANA (PT)PTWS [facility] Reason for Visit: PT Progress Note [1596] Primary Visit Diagnosis:Pain in left hip [M25.552] Other Visit Diagnosis:Pain in the groin, left [R10.32] Allergies As of Date: 06/11/2018 Noted Allergy Reaction DANIEL INHIBITORS 06/15/2005 7 - Swelling Comments: Angioedema. Lips. LIPITOR (ATORVASTATIN CALCIUM) 06/15/2005 Comments: Muscle aches PANAFIL ([id number]*08/18/2005 5 - Intolerance Comments: ? AMPICILLIN 06/15/2005 [...] independence with HEP Goals updated on 06/11/2018. [place] in home exercise program.--MET for current HEP [...] be seen for Therapeutic exercise;Manual therapy;Patient/Family/Caregiver Education;Modalities;Self- long-term management;Functional training;General ConditioningUltrasound PLAN FOR NEXT VISIT: [...] needs. Patient response monitored throughout treatment. Billing: [facility]: Therapeutic Exercise (42708): 1:1 time: 15 minutes (1 unit: 8-22 mins) Manual Therapy (08548): 1:1 time: 10 minutes (1 unit: 8-22 mins) Modalities Ultrasound (86158) 1:1 time: 15 minutes1 unit: 8-22 mins Total time: 40 minutes Sofiya Myers PT PROGRESS Observed: 06/04/2018 Status: COMPLETED Source: [place] 10:18 AM [facility] REPOS[facility] O ID: [id number] Author: Sofiya Myers Service: (none) Author Type: [...] sitting and standing. Provided patient with other [facility] orthopedic specialists she may want to reach out to get get another opinion on her L groin/hip pain. Progressed to standing exercies and added peach band to B hip ER (aka clamshells). The patient will continue to benefit from continued skilled physical therapy for exercise and manual for assistance with pain relief. PLAN FOR NEXT VISIT: POC update: 06/11/18 and 05/28/18 did [facility]. See how HS stretch, peach resistance band [...] for orthopedic physicians for second options. Billing: [facility]: Therapeutic Exercise (89929): 1:1 time: 55 minutes (4 units: 53-67 mins) Total time: 55 minutes Sofiya Myers PT CNTHERAPY Observed: 06/04/2018 Status: COMPLETED Source: [place] 10:00 AM [facility] RE[facility] OT/PT/Speech Visit (PTWS) VENICE CROFT ([id number]) 1945 F Date Time Provider Department 06/04/18 10:00 AM SOFIYA MYERS (PT) PTWS Date Time Provider Department Center 06/04/2018 10:00 AM [id number], DIANA (PT)PTWS [facility] Reason for Visit: Physical Therapy [503] Primary Visit Diagnosis:Pain in left hip [M25.552] Other Visit Diagnosis:Pain in the groin, left [R10.32] Allergies As of Date: 06/04/2018 Noted Allergy Reaction DANIEL INHIBITORS 06/15/2005 7 - Swelling Comments: Angioedema. Lips. LIPITOR (ATORVASTATIN CALCIUM) 06/15/2005 Comments: Muscle aches PANAFIL ([id number]*08/18/2005 5 - Intolerance Comments: ? AMPICILLIN 06/15/2005 [...] sitting and standing. Provided patient with other [facility] orthopedic specialists she may want to reach out to get get another opinion on her L groin/hip pain. Progressed to standing exercies and added peach band to B hip ER (aka clamshells). The patient will continue to benefit from continued skilled physical therapy for exercise and manual for assistance with pain relief. PLAN FOR NEXT VISIT: POC update: 06/11/18 and 05/28/18 did [facility]. See how HS stretch, peach resistance band [...] for orthopedic physicians for second options. Billing: [facility]: Therapeutic Exercise (75151): 1:1 time: 55 minutes (4 units: 53-67 mins) Total time: 55 minutes Sofiya Myers PT PROGRESS Observed: 05/28/2018 Status: COMPLETED Source: [place] 9:47 AM [facility] REPOSIT[facility] HNO ID: [id number] Author: Sofiya (Pt) Lucia Service: (none) Author [...] pain relief. PLAN FOR NEXT VISIT: 05/28/2018 [facility] completed SUBJECTIVE: Preparing for the last dinner [...] assessment of patient's response to intervention. Billing: [facility]: Therapeutic Exercise (89799): 1:1 time: 35 minutes (2 units: 23-37 mins) Manual Therapy (98428): 1:1 time: 8 minutes (1 unit: 8-22 mins) Total time: 43 minutes Sofiya Myers PT CNTHERAPY Observed: 05/28/2018 Status: COMPLETED Source: [place] 9:15 AM [facility] RE[facility] OT/PT/Speech Visit (PTWS) ZEKEVENICE ([id number]) 1945 F Date Time Provider Department 05/28/18 9:15 AM SOFIYA MYERS (PT) PTWS Date Time Provider Department Center 05/28/2018 9:15 AM [id number], DIANA (PT)PTWS [facility] Reason for Visit: Physical Therapy [503] Primary Visit Diagnosis:Pain in left hip [M25.552] Other Visit Diagnosis:Pain in the groin, left [R10.32] Allergies As of Date: 05/28/2018 Noted Allergy Reaction DANIEL INHIBITORS 06/15/2005 7 - Swelling Comments: Angioedema. Lips. LIPITOR (ATORVASTATIN CALCIUM) 06/15/2005 Comments: Muscle aches PANAFIL ([id number]*08/18/2005 5 - Intolerance Comments: ? AMPICILLIN 06/15/2005 [...] pain relief. PLAN FOR NEXT VISIT: 05/28/2018 [facility] completed SUBJECTIVE: Preparing for the last dinner [...] assessment of patient's response to intervention. Billing: [facility]: Therapeutic Exercise (62516): 1:1 time: 35 minutes (2 units: 23-37 mins) Manual Therapy (13980): 1:1 time: 8 minutes (1 unit: 8-22 mins) Total time: 43 minutes Sofiya Myers PT Previous Version PROGRESS Observed: 05/20/2018 Status: COMPLETED Source: [place] 6:11 AM [facility] REPOS[facility]ORY O ID: [id number] Author: Sofiya (Pt) Lucia Service: (none) Author [...] intensity of pain Goals updated on 05/14/2018. [place] in home exercise program.--Not Established yet. To [...] assessment of patient's response to intervention. Billing: [facility]: Therapeutic Exercise (26799): 1:1 time: 30 minutes (2 units: 23-37 mins) Manual Therapy (85286): 1:1 time: 15 minutes (1 unit: 8-22 mins) Total time: 45 minutes Sofiya Myers PT PROGRESS Observed: 05/17/2018 Status: COMPLETED Source: [place] 7:05 AM [facility] RE[facility] HNO ID: [id number] Author: Jonah Cooper Service: (none) Author Type: Physician Type: Progress Notes Filed: 05/22/2018 7:01 AM Note Text: Jonah Cooper MD Department of Orthopaedics Orthopaedics [address] [place] [address] Dept: [phone] Dept May 02, 2018 CHIEF COMPLAINT: New [...] hip degenerative arthritis. Prominent chronic osteitis pubis. Wharfinger Chief: PSCB ? Transcribe Date/Time: Apr 01 2018 [...] apnea) uses bipap nightly - Pulmonary hypertension ([facility]) Seeing Dr. Singh - Pure hypercholesterolemia - [...] 0 Occupational History Occupation Employer Comment Retired [employer] Social History Main Topics Smoking status: Never [...] Allergies: Daniel Inhibitors; Lipitor [Atorvastatin Calcium]; Panafil [Tebuis-Etlo-Yxyrphwtppqdj]; Ampicillin; Darvocet-N 100 [Propoxyphene N-Acetaminophen]; Percocet [Oxycodone-Acetaminophen] ROS: General (negative for fatigue, malaise, weight loss/gain) HEENT (negative for headache, earache, recent vision changes, sinus pain, sore throat) Respiratory (no recent shortness of breath, hemoptysis) CV (negative for chest tightness, palpitations) Musculoskeletal (see HPI) Psych (no depression, anxiety) REFERRING PHYSICIAN: Ms. Vencie Croft was referred to me for consultation by the following physician. This consultation note will be sent to the following physician by either mail or electronic medical record. Yolande Chairez MD [address] [facility] [address] This note was partially generated using Toptal voice recognition system, and there may be some incorrect words, spellings, and punctuation that were not noted in checking the note before saving. Jonah Cooper MD CNTHERAPY Observed: 05/14/2018 Status: COMPLETED Source: [place] 10:00 AM [facility] RE[facility] OT/PT/Speech Visit (PTWS) VENICE CROFT ([id number]) 1945 F Date Time Provider Department 05/14/18 10:00 AM SOFIYA MYERS (PT) PTWS Date Time Provider Department Center 05/14/2018 10:00 AM [id number], DIANA (PT)PTWS [facility] Reason for Visit: PT Progress Note [1596] Primary Visit Diagnosis:Pain in left hip [M25.552] Other Visit Diagnosis:Pain in the groin, left [R10.32] Allergies As of Date: 05/14/2018 Noted Allergy Reaction DANIEL INHIBITORS 06/15/2005 7 - Swelling Comments: Angioedema. Lips. LIPITOR (ATORVASTATIN CALCIUM) 06/15/2005 Comments: Muscle aches PANAFIL ([id number]*08/18/2005 5 - Intolerance Comments: ? AMPICILLIN 06/15/2005 [...] intensity of pain Goals updated on 05/14/2018. [place] in home exercise program.--Not Established yet. To [...] assessment of patient's response to intervention. Billing: [facility]: Therapeutic Exercise (37746): 1:1 time: 30 minutes (2 units: 23-37 mins) Manual Therapy (64844): 1:1 time: 15 minutes (1 unit: 8-22 mins) Total time: 45 minutes Sofiya Myers PT PROGRESS Observed: 05/02/2018 Status: COMPLETED Source: [place] 10:58 AM [facility] REPOS[facility] HNO ID: [id number] Author: Radha Church Ma Service: (none) Author [...] 04/01/18. CNOV Observed: 05/02/2018 Status: COMPLETED Source: [place] 10:40 AM [facility] REPOS[facility] Office Visit (ORTHWS) VENICE CROFT ([id number]) 1945 F Date Time Provider Department 05/02/18 [...] Jonah Cooper MD Department of Orthopaedics Orthopaedics [facility] [address] [facility] [address] Dept: [phone] Dept May 02, 2018 CHIEF COMPLAINT: New [...] hip degenerative arthritis. Prominent chronic osteitis pubis. Wharfinger Chief: ROYAL ? Transcribe Date/Time: Apr 01 2018 [...] multiple, benign - COLONOSCOP W/ OR W/O [facility] SPEC N/A 11/14/2016 repeat in 2 [...] 0 Occupational History Occupation Employer Comment Retired [employer] Social History Main Topics Smoking status: Never [...] Allergies: Daniel Inhibitors; Lipitor [Atorvastatin Calcium]; Panafil [Luuyks-Rfcz-Jhglcdfovbibr]; Ampicillin; Darvocet-N 100 [Propoxyphene N-Acetaminophen]; Percocet [Oxycodone-Acetaminophen] [...] or electronic medical record. Yolande Chairez MD [address] [facility] [address] This note was partially generated using Toptal voice recognition system, and there may be some incorrect words, spellings, and punctuation that were not noted in checking the note before saving. Jonah Cooper MD Referring Provider: YOLANDE CHAIREZ () [[id number]] Allergies As of Date: 05/02/2018 Noted Allergy Reaction DANIEL INHIBITORS 06/15/2005 7 - Swelling Comments: Angioedema. Lips. LIPITOR (ATORVASTATIN CALCIUM) 06/15/2005 Comments: Muscle aches PANAFIL ([id number]*08/18/2005 5 - Intolerance Comments: ? AMPICILLIN 06/15/2005 [...] 05/22/18 PROGRESS Observed: 04/14/2018 Status: COMPLETED Source: [place] 8:50 AM [facility] REPOSITORY [facility] ID: [id number] Author: Sofiya (Willis) Lucia Service: (none) Author [...] of Care: created on 04/12/18 through 05/12/18 [place] in home exercise program. Patient will decrease [...] Planned Treatment Interventions: Therapeutic exercise;Manual therapy;Patient/Family/Caregiver Education;Modalities;Self- long-term management;Functional training;General ConditioningUltrasound PLAN FOR NEXT VISIT: [...] do not have a pool here in [place], so if that does become an option another location would have to be determined. 3: Tried standing with B UE support on mat table R hip flexion, extension, and abduction and patient unable to tolerate 4: Patient unable to tolerate seated marching or standing marching. Skilled Intervention: Patient education as noted. Billing: [facility]: Evaluation - Moderate Complexity (67121) Therapeutic Exercise (89740): 1:1 time: 8 minutes (1 unit: 8-22 mins) Total time: 39 minutes Sofiya Myers PT CNTHERAPY Observed: 04/12/2018 Status: COMPLETED Source: [place] 2:45 PM [facility] RE[facility] OT/PT/Speech Visit (PTWS) VENICE CROFT ([id number]) 1945 F Date Time Provider Department 04/12/18 2:45 PM SOFIYA MYERS (PT) PTWS Date Time Provider Department Center 04/12/2018 2:45 PM [id number], DIANA (PT)PTWS [facility] Reason for Visit: PT Eval [487] Patient Education [91] Primary Visit Diagnosis:Pain in left hip [M25.552] Other Visit Diagnosis:Pain in the groin, left [R10.32] Allergies As of Date: 04/12/2018 Noted Allergy Reaction DANIEL INHIBITORS 06/15/2005 7 - Swelling Comments: Angioedema. Lips. LIPITOR (ATORVASTATIN CALCIUM) 06/15/2005 Comments: Muscle aches PANAFIL ([id number]*08/18/2005 5 - Intolerance Comments: ? AMPICILLIN 06/15/2005 [...] of Care: created on 04/12/18 through 05/12/18 [place] in home exercise program. Patient will decrease [...] Planned Treatment Interventions: Therapeutic exercise;Manual therapy;Patient/Family/Caregiver Education;Modalities;Self- long-term management;Functional training;General ConditioningUltrasound PLAN FOR NEXT VISIT: [...] do not have a pool here in [place], so if that does become an option another location would have to be determined. 3: Tried standing with B UE support on mat table R hip flexion, extension, and abduction and patient unable to tolerate 4: Patient unable to tolerate seated marching or standing marching. Skilled Intervention: Patient education as noted. Billing: [facility]: Evaluation - Moderate Complexity (49556) Therapeutic Exercise (59001): 1:1 time: 8 minutes (1 unit: 8-22 mins) Total time: 39 minutes Sofiya Myers PT Follow-up and Disposition History Recorded XR HIP 3V PELV+ Observed: 04/01/2018 Status: F Source: [place] AP/LAT LT 11:00 AM [facility] REPOS[facility]ORY * * *Final Report* * * [...] hip degenerative arthritis. Prominent chronic osteitis pubis. Wharfinger Chief: PSCB Transcribe Date/Time: Apr 01 2018 12:39P Dictated by : WHITLEY KO MD This examination was interpreted and the report reviewed and electronically signed by: WHITLEY KO MD on Apr 01 2018 12:45PM EST [id number] PROGRESS Observed: 04/01/2018 Status: COMPLETED Source: [place] 10:44 AM [facility] REPOSIT[facility] HNO ID: [id number] Author: Lona Escalante) Nikos Younger Service: (none) Author Type: Pasta Press Operator Type: Progress Notes Filed: 04/01/2018 11:00 AM [...] AM PROGRESS Observed: 04/01/2018 Status: COMPLETED Source: [place] 9:20 AM [facility] RE[facility] HNO ID: [id number] Author: Yolande Chairez Service: (none) Author Type: [...] multiple, benign - COLONOSCOP W/ OR W/O [facility] SPEC N/A 11/14/2016 repeat in 2 [...] 0 Occupational History Occupation Employer Comment Retired [employer] Social History Main Topics Smoking status: Never [...] MD CNOV Observed: 04/01/2018 Status: COMPLETED Source: [place] 9:20 AM [facility] RE[facility] Office Visit (FAMPWS) VENICE CROFT ([id number]) 1945 F Date Time Provider Department 04/01/18 9:20 AM YOLANDE CHAIREZ) FAMPWS During your visit today, we recorded the following information about you: Pulse Respiration Blood pressure Weight 76/minute 16/minute 134/84 134.7 kg Yolnade Chairez MD 04/01/2018 3:51 PM Addendum Chief [...] multiple, benign - COLONOSCOP W/ OR W/O [facility] SPEC N/A 11/14/2016 repeat in 2 [...] 0 Occupational History Occupation Employer Comment Retired [employer] Social History Main Topics Smoking status: Never [...] Yolande Chairez MD Referring Provider: YOLANDE CHAIREZ) [[id number]] Allergies As of Date: 04/01/2018 Noted Allergy Reaction DANIEL INHIBITORS 06/15/2005 7 - Swelling Comments: Angioedema. Lips. LIPITOR (ATORVASTATIN CALCIUM) 06/15/2005 Comments: Muscle aches PANAFIL ([id number]*08/18/2005 5 - Intolerance Comments: ? AMPICILLIN 06/15/2005 [...] Z68.43] Order(s):XR HIP GENERAL 3V PELV/AP/LAT LT [[id number]] Order #: [id number] FUTURE methylPREDNISolone (MEDROL, BENJIE,) 4 mg Dose-PackAs Instructed per packageDisp: 1 PackageRfl: 0 meloxicam (MOBIC) 15 mg tabletTake 1 tablet by mouth once daily. Take with food.Disp: 30 tabletRfl: 1 CONSULT TO PHYSICAL THERAPY [6954] Order #: [id number]: 1 Prescriptions as of 04/01/2018 Sig: METHYLPREDNISOLONE [...] PANEL, BASIC Collected: 03/26/2018 Status: F Source: [place] 10:21 AM [facility] REPOS[facility]ORY TYPE CODE TESTS RESULT OUT OF [...] Desk Reference: National Heart, Lung, and Blood [place]. National Institutes of Health. 2001: NIH Publication No. 01-3305. 2. An International Atherosclerosis Society position paper: global recommendations for the management of dyslipidemia: executive summary, Atherosclerosis. 2014: 232(2):410-413. Performed By: #### LIPB, HBA1C #### [facility] [address] [place] [address] HEMOGLOBIN A1C Collected: 03/26/2018 Status: F Source: [place] 10:21 AM [facility] REPOSITORY TYPE CODE TESTS RESULT OUT OF REFERENCE UNITS RANGE LAB HGBA1C 4.3-5.6 % Hemoglobin A1c 5.3 LAB HBA0 mg/dL Est. Average Glucose 105 Result Comment: eAG: (Estimated average glucose) is a calculated value from HgbA1c and is service liaison representative of the average blood glucose level in the last 2-3 month period. Performed By: #### LIPB, HBA1C #### [facility] [address] [place] [id number] LUCHO Observed: 03/19/2018 Status: COMPLETED Source: [place] 12:00 AM [facility] REPOSITORY Patient Outreach (INTMWH) VENICE CROFT ([id number]) 1945 F Date Time Provider Department 03/19/18 YOLANDE CHAIREZ) [facility] During your visit today, we recorded the following information about you: Allergies As of Date: 03/19/2018 Noted Allergy Reaction DANIEL INHIBITORS 06/15/2005 7 - Swelling Comments: Angioedema. Lips. LIPITOR (ATORVASTATIN CALCIUM) 06/15/2005 Comments: Muscle aches PANAFIL (MJAOZI-MVPR-GFCYBIDDANSC*08/18/2005 5 - Intolerance Comments: ? AMPICILLIN 06/15/2005 2 - Rash Comments: Bilateral arms. DARVOCET-N 100 (PROPOXYPHENE N-AC*01/31/2010 1 - Mental Status Change 14 - Other: See Comments Comments: Dizziness. PERCOCET (OXYCODONE-ACETAMINOPHEN)01/31/2010 1 - Mental Status Change Date Reviewed: 02/21/2018 Reviewed by: Thelma Singh - Fully Assessed Visit Diagnosis:Medication management [Z79.899] Order(s):HGB A1C [ONTEM5M] Order #: [id number] FUTURE LIPID PANEL BASIC [SQLIPB] Order #: [id number] FUTURE Prescriptions as of 03/19/2018 Sig: COMPOUNDED [...] 03/12/2018 Status: COMPLETED Source: [place] 12:00 AM [facility] REPOSITORY Telephone (PULMWS) VENICE CROFT ([id number]) 1945 F Date Time Provider Department 03/12/18 [...] repeat at this time. Thelma Singh MD, [facility] [place] Allergies As of Date: 03/12/2018 Noted Allergy Reaction DANIEL INHIBITORS 06/15/2005 7 - Swelling Comments: Angioedema. Lips. LIPITOR (ATORVASTATIN CALCIUM) 06/15/2005 Comments: Muscle aches PANAFIL (BLAUNR-BYKJ-BXPPROEKHLNI*08/18/2005 5 - Intolerance Comments: ? AMPICILLIN 06/15/2005 [...] 03/12/18 PROCEDURE Observed: 03/04/2018 Status: COMPLETED Source: [place] 2:01 PM [facility] REPOSITORY HNO ID: [id number] Author: Nikos Crowder (Tech) Service: (none) Author Type: Pasta Press Operator Type: Procedures Filed: 03/04/2018 2:38 PM Note [...] PM CNOV Observed: 02/21/2018 Status: COMPLETED Source: [place] 3:00 PM [facility] REPOSITORY Office Visit (PULMWS) ZEKEVENICE ([id number]) 1945 F Date Time Provider Department 02/21/18 3:00 PM THELMA SINGH PULSOPHIA During your visit today, we recorded the following information about you: Pulse Respiration Blood pressure Weight 85/minute 15/minute 122/80 133.6 kg Height 1.626 m Thelma Singh MD 03/01/2018 4:09 PM Signed [facility] [place], 02/21/2018: ? HPI: Since the last visit, the patient has not required hospitalization. Patient compliant with prescribed PAP Rx, current compliance report scanned into record. No change in occasional cough. No sputum, hemoptysis, pleuritic chest pain, wheezing. Stable exertional dyspnea with exertion. Nasal congestion and post nasal drip. Continuous supplemental oxygen 3.5 L. DME: [facility] ? PMH changes: Reviewed with patient [...] of my answers. ? Thelma Singh MD, [facility] [place] [facility] [address] [place] [address] P: [phone] F: [phone] [email or web address] ? ? Thelma Singh MD 02/21/2018 [...] Physician, Yolande Chairez MD. Thelma Singh MD, [facility] [place] [facility] [address] [place], [place] [address] P: [phone] F: [phone] [email or web address] Referring Provider: ROYA DUCKWORTH ([facility]) [[id number]] Allergies As of Date: 02/21/2018 Noted Allergy Reaction DANIEL INHIBITORS 06/15/2005 7 - Swelling Comments: Angioedema. Lips. LIPITOR (ATORVASTATIN CALCIUM) 06/15/2005 Comments: Muscle aches PANAFIL (NCTJRZ-AEAD-WBDEINHOUPCI*08/18/2005 5 - Intolerance Comments: ? AMPICILLIN 06/15/2005 [...] Morbid obesity with BMI of 50.0-59.9, adult ([facility]) [E66.01, Z68.43] Order(s):SIX MINUTE WALK [1011648] Order #: [id number] FUTURE ECHO [003623] Order #: [id number]: 1 FUTURE Prescriptions as of 02/21/2018 Sig: [...] Physician, Yolande Chairez MD. Thelma Singh MD, [facility] [place] [facility] [address] [place] [address] P: [phone] F: [phone] [email or web address] Follow Up: Call patient with results Follow-up and Disposition History Recorded Encounter Status:Closed by THELMA SINGH MD on 03/01/18 PROGRESS Observed: 02/21/2018 Status: COMPLETED Source: [place] 2:58 PM [facility] RE[facility] HNO ID: [id number] Author: Thelma Singh Service: (none) Author Type: Physician Type: Progress Notes Filed: 03/01/2018 4:09 PM Note Text: [facility], 02/21/2018: ? HPI: Since the last visit, the patient has not required hospitalization. Patient compliant with prescribed PAP Rx, current compliance report scanned into record. No change in occasional cough. No sputum, hemoptysis, pleuritic chest pain, wheezing. Stable exertional dyspnea with exertion. Nasal congestion and post nasal drip. Continuous supplemental oxygen 3.5 L. DME: [facility] ? PMH changes: Reviewed with patient [...] of my answers. ? Thelma Singh MD, [facility] [place] [facility] [address] [place] [address] P: [phone] F: [phone] [email or web address] ? ? COMP METABOLIC PANEL Collected: 11/28/2017 Status: F Source: [place] 10:19 AM [facility] REPOSITORY TYPE [...] 74-99 mg/dL Glucose 97 Result Comment: The [place] Diabetes Association (ADA) provides guidance for cutoff [...] Standards of Medical Care in Diabetes 2016, [place] Diabetes Association. Diabetes Care. 2016.39(Suppl 1). LAB [...] GFR. Performed By: #### CMP, VITD #### [facility] [address] [place], [place] [address] VITAMIN D 25 HYDROXY Collected: 11/28/2017 Status: F Source: [place] 10:19 AM [facility] REPOSITORY TYPE CODE TESTS RESULT OUT OF REFERENCE UNITS RANGE LAB VITD 31.0-80.0 ng/mL Vitamin D 25 39.3 Hydroxy Result Comment: Classification of 25 [place] Vitamin D status: Insufficiency/Moderate Deficiency: < or = 30 ng/mL Sufficiency/Optimal Levels: 31 to 80 ng/mL Toxicity: > 100 ng/mL Test performed by chemiluminescent immunoassay. Performed By: #### CMP, VITD #### [facility] [address] [place], [place] [address] CNOV Observed: 11/28/2017 Status: COMPLETED Source: [place] 9:20 AM [facility] REPOSITORY Office Visit (FAMPWS) VENICE CROFT ([id number]) 1945 F Date Time Provider Department 11/28/17 [...] Morbid obesity with BMI of 50.0-59.9, adult ([facility]) - On home oxygen therapy - Open wound of knee, leg (except thigh), and ankle, complicated - JUSTINA (obstructive sleep apnea) uses bipap nightly - Pulmonary hypertension Seeing Dr. Singh - Pure hypercholesterolemia - Unspecified essential hypertension Previous Surgical History PAST SURGICAL HISTORY Procedure Laterality Date - BX OF BREAST; INCISIONAL Bx of breast, incisional multiple, benign - COLONOSCOP W/ OR W/O [facility] SPEC N/A 11/14/2016 repeat in 2 [...] 0 Occupational History Occupation Employer Comment Retired [employer] Social History Main Topics Smoking status: Never [...] Abs Lymph 1.00 - 4.00 k/uL 1.51 [place]% % 8.5 Abs [place] 0.00 - 0.86 k/uL 0.49 Eosin% % [...] Yolande Chairez MD Referring Provider: YOLANDE CHAIREZ) [[id number]] Allergies As of Date: 11/28/2017 Noted Allergy Reaction DANIEL INHIBITORS 06/15/2005 7 - Swelling Comments: Lips. LIPITOR (ATORVASTATIN CALCIUM) 06/15/2005 Comments: Muscle aches PANAFIL (QKNCIB-DITZ-CHOYXZIMNMOU*08/18/2005 5 - Intolerance Comments: ? AMPICILLIN 06/15/2005 [...] Order(s):VITAMIN D 25 HYDROXY [SQVITD] Order #: [id number] FUTURE Prescriptions as of 11/28/2017 Sig: FLUTICASONE [...] 11/28/17 PROGRESS Observed: 11/28/2017 Status: COMPLETED Source: [place] 9:10 AM [facility] REPOSITORY HNO ID: [id number] Author: Yolande Foss) Mihaela Service: (none) Author [...] multiple, benign - COLONOSCOP W/ OR W/O [facility] SPEC N/A 11/14/2016 repeat in 2 [...] Abs Lymph 1.00 - 4.00 k/uL 1.51 [place]% % 8.5 Abs [place] 0.00 - 0.86 k/uL 0.49 Eosin% % [...] 10/03/2018 Drug DANIEL Hives Unknown Maur[place] Allergy/41 Inhibitors/[id number] [facility] [id number]( 147(RXNORM) [facility]) Repository 10/03/2018 Drug oxycodone/S1394439 Upset Stomach Unknown [place] Allergy/41 58(RXNORM) Community 5395771([facility]) Repository 10/03/2018 Drug propoxyphene/F0060 Upset Stomach Unknown [place] Allergy/41 41123(RXNORM) Community 0990485([facility]) Repository 10/03/2018 Drug papain/Q837209527( Other Unknown [place] Allergy/41 RXNORM) Community 4268773([facility]) Repository 10/03/2018 Drug chlorophyllin/F006 Other Unknown [place] Allergy/41 186383(RXNORM) Community 8875676([facility]) Repository 10/03/2018 Drug urea/L273738557(RX Other Unknown [place] Allergy/41 NORM) Community 0793304([facility]) Repository 10/03/2018 Drug ampicillin/D260541 Hives Unknown [place] Allergy/41 692(RXNORM) Community 3446305([facility]) Repository 10/03/2018 Drug atorvastatin/F0060 Other Unknown [place] Allergy/41 81009(RXNORM) [facility] 1339401([facility]) Repository 01/31/2010 DRUG/46561 PROPOXYPHENE Mental [facility] 1003(SNOME N-ACETAMINOPHEN [facility] [place] [facility]) Repository 01/31/2010 DRUG/09065 OXYCODONE-ACETAMIN Mental [facility] 1003(SNOME OPHEN [facility] [place] [facility]) Repository 08/18/2005 DRUG/13150 SHLDOO-NHUW-WATPOE INTOLERANCE [facility] 1003(SNOME PHYLLIN [place] D [facility]) Repository 06/15/2005 Drug DANIEL INHIBITORS SWELLING [facility] Class/4195 [place] [address](SNOM Repository ED CT) 06/15/2005 DRUG ATORVASTATIN High [facility] INGREDI/41 CALCIUM [place] 1567708( Repository OMED CT) 06/15/2005 DRUG AMPICILLIN RASH [facility] INGREDI/41 [place] 0332075( Repository OMED CT) ENCOUNTERS ENCOUNTERS ADMIT/DISCHARGE ACCOUNT ADMITTING ENCOUNTER LOCATION SOURCE NUMBER CLASS 10/11/2018 [id number] Ambulatory [place] [facility] ing:[facility] Repository 10/09/2018 [id number] Ambulatory [facility] Hospital ing:CT Repository 10/07/2018/10/07/19 [id number] Ambulatory [place] [facility] [place] Repository 10/04/2018/10/07/19 [id number] Ambulatory [address] [place] Repository 10/04/2018/10/07/19 [id number] Ambulatory [place] [facility] [place] Repository 10/03/2018 [id number] Ambulatory [facility] Hospital ing:LAB Repository 10/03/2018/10/03/19 [id number] Ambulatory BMSBuilding:Mat Vargas [facility] Repository 09/27/2018 [id number] Ambulatory BMSBuilding:Mat Martínez [facility] Repository 09/27/2018/09/27/19 [id number] Ambulatory [address] [place] Repository 09/24/2018/09/26/19 [id number] Ambulatory [address] [place] Repository 09/24/2018/09/24/19 [id number] Ambulatory [address] [place] Repository 09/20/2018 [id number] Ambulatory [facility] Hospital ing:OPBI Repository 09/19/2018/09/20/19 [id number] Ambulatory [place] [facility] [place] Repository 09/19/2018/09/19/19 [id number] Ambulatory [place] [facility] [place] Repository 09/16/2018/09/16/20 [id number] Ambulatory [place] [facility] [place] Repository 09/13/2018/09/13/20 [id number] [facility]ulatory [place] [facility] [place] Repository 09/11/2018/09/11/20 [id number] Ambulatory [place] [facility] [place] Repository 09/11/2018/09/12/20 [id number] Ambulatory [place] [facility] [place] Repository 09/11/2018/09/11/20 [id number] Ambulatory [place] [facility] [place] Repository 09/03/2018/09/05/20 [id number] Ambulatory [place] [facility] [place] Repository 09/03/2018/10/01/19 [id number] Ambulatory [place] [facility] [place] Repository 08/22/2018/08/26/20 [id number] Ambulatory [place] [facility] [place] Repository 08/13/2018/08/14/20 [id number] Ambulatory [place] [facility] [place] Repository 08/06/2018/08/12/20 [id number] Ambulatory [place] [facility] [place] Repository 08/01/2018/08/01/20 [id number] Ambulatory [place] [facility] [place] Repository 08/01/2018/08/02/20 [id number] Ambulatory [place] [facility] [place] Repository 07/30/2018/07/31/20 [id number] Ambulatory [place] [facility] [place] Repository 07/25/2018/07/26/20 [id number] Ambulatory [place] [facility] [place] Repository 07/16/2018/07/22/20 [id number] Ambulatory [place] [facility] [place] Repository 07/12/2018/07/15/20 [id number] Ambulatory [place] [facility] [place] Repository 07/09/2018/07/11/20 [id number] Ambulatory [place] [facility] [place] Repository 06/18/2018/06/18/20 [id number] Ambulatory [place] [facility] [place] Repository 06/11/2018/06/13/20 [id number] Ambulatory [place] [facility] [place] Repository 06/04/2018/06/05/20 [id number] Ambulatory [place] [facility] [place] Repository 05/28/2018/05/29/20 [id number] Ambulatory [place] [facility] [place] Repository 05/14/2018/05/21/20 [id number] Ambulatory [place] [facility] [place] Repository 05/02/2018/06/07/20 [id number] Ambulatory [place] [facility] [place] Repository 04/12/2018/04/15/20 [id number] Ambulatory [place] [facility] [place] Repository 04/01/2018/04/01/20 [id number] Ambulatory [place] [facility] [place] Repository 04/01/2018/04/02/20 [id number] Ambulatory [place] [facility] [place] Repository 03/26/2018/03/26/20 [id number] Ambulatory [place] [facility] [place] Repository 03/04/2018/03/06/20 [id number] Ambulatory [place] [facility] [place] Repository 03/04/2018/03/04/20 [id number] Ambulatory [place] [facility] [place] Repository 02/21/2018/03/01/[id number] Repository 11/28/2017/11/29/[id number] Repository 11/28/2017/11/30/[id number] Repository PAYERS PAYERS ENCOUNTER GUARANTOR PAYER SUBSCRIBER SOURCE 10/11/2018 VENICE Pelaez Primary VENICE Martínez [id number] TR Insurance:MEDICARE PAULLINDOB: [address] [address]Mlj: Number: Repository [id number] (HP) Date:2018-10-04 10/11/2018 Secondary VENICE Martínez Insurance:MEDICAL PAULLINDOB: [address] Number: Repository [id number] Date:0337-76-55GT [address] [place] [address]XS: 10/11/2018 Tertiary NOT GIVENUNK [place] Insurance:SELF PAY [facility] Number: Effective Repository Date:2018-10-04 10/09/2018 VENICE Pelaez Primary VENICE Martínez [id number] TR Insurance:MEDICARE PAULLINDOB: [address] [address]Vgv: Number: Repository [id number] (HP) Date:2018-10-07 10/09/2018 Secondary VENICE Martínez Insurance:MEDICAL PAULLINDOB: [address] Number: Repository [id number] Date:3152-86-79DX [address] [place] [address]TL: 10/09/2018 Tertiary NOT GIVENUNK [place] Insurance:SELF PAY [facility] Number: Effective Repository Date:2018-10-07 10/03/2018 VENICE Pelaez Primary VENICE Martínez [id number] TR Insurance:MEDICARE PAULLINDOB: [address] [address]Cxh: Number: Repository [id number] (HP) Date:2018-10-03 10/03/2018 Secondary VENICE Pelaez [place] Insurance:MEDICAL PAULLINDOB: [address] Number: Repository [id number] Date:8078-11-45RG [place] [id number]: 10/03/2018 Tertiary NOT GIVENUNK Mauricio Insurance:SELF PAY [facility] Number: Effective Repository Date:2018-10-03 10/03/2018 VENICE Pelaez Primary VENICE Martínez [id number] TR Insurance:MEDICARE PAULLINDOB: [address] [address]Eru: Number: Repository [id number] (HP) Date:2018-09-13 10/03/2018 Secondary VENICE Pelaez [place] Insurance:MMO PAULLINDOB: Community MEDICAREPolicy 1945[facility] Hospital Number: Repository [id number] Date:3502-44-98[place] [id number]: 10/03/2018 Tertiary NOT GIVENUNK [place] Insurance:SELF PAY [facility] Number: Effective Repository Date:2018-10-02 09/27/2018 VENICE F Primary VENICE Martínez [id number] TR Insurance:MEDICARE PAULLINDOB: [address] , [place] [address]Eea: Number: Repository [id number] (HP) Date:2018-09-27 09/27/2018 Secondary VENICE Pelaez Mauricio Insurance:MMO PAULLINDOB: Community MEDICAREPolicy 1945[facility] Hospital Number: Repository [id number] Date:[id number] [address] [address]DH: 09/27/2018 Tertiary NOT GIVENUNK [place] Insurance:SELF PAY [facility] Number: Effective Repository Date:2018-09-27 09/20/2018 VENICE Pelaez Primary VENICE Martínez [id number] TR Insurance:MEDICARE MICHAELB: [address] A [facility] [id number], [place] [address]Eiv: Number: Repository [id number] () Date:2018-07-31 09/20/2018 Secondary VENICE Martínez Insurance:MMO ZEKEDOB: Community MEDICAREPolicy [id number] Hospital Number: Repository [id number] Date:9556-54-40WZ [address] [place] [address]OO: 09/20/2018 Tertiary NOT GIVENFRIDA [place] Insurance:SELF PAY [facility] Number: Effective Repository Date:2018-07-31
== END ==
PROVIDERS: Family Provider Family Medicine; PCP Family Medicine; Referring Provider Nurse Practitioner Adult Health; Visit Provider Nurse Practitioner Adult Health
DX: R31.0 Gross hematuria (principal)
CPT/HCPCS: 74178; Q9967

== ENCOUNTER → 2018-10-11 06:12 | Outpatient (CLI) | payer MEDICARE, OTHER, SELFPAY ==
[2018-10-03 10:27] VITALS: BMI 50.1
--- NOTE | 2018-10-11 09:02 | STRESSREP ---
Stress Test Report Date: 10/11/2018 Procedure: Pharmacologic stress nuclear imaging study Indications: Atrial fibrillation; shortness of breath/dyspnea Consent: Per the patient Procedure: The patient underwent pharmacologic (Regadenoson) evaluation with a peak heart rate of 100 beats per minute (68% predicted maximal heart rate) and a peak blood pressure of 118/76 mmHg. The baseline ECG demonstrated Atrial fibrillation; right bundle branch block . The peak pharmacologic ECG demonstrated no obvious ECG changes . There was an isolated PVC during infusion; occasional PVCs during recovery . There was no complaint of chest discomfort during pharmacologic infusion or recovery. The examination was discontinued secondary to completion of protocol. Impression: 1. Pharmacologic (Regadenoson) evaluation 2. Peak pharmacologic ECG with Continued atrial fibrillation with right bundle branch block with no obvious ECG changes . 3. There was an isolated PVC during infusion and an occasional PVCs during recovery . 4. Nuclear images pending Myocardial perfusion imaging study: Technique: The patient was injected with 14.3 millicuries of technetium 99m Cardiolite and subsequently rest SPECT Cardiolite nuclear imaging was obtained in the horizontal long, vertical long, and short axis views. The patient underwent pharmacologic (Regadenoson) evaluation with a peak heart rate of 100 beats per minute (68 % percent predicted maximal heart rate) and a peak blood pressure of 118/76 mmHg. The patient was injected with 44.8 millicuries of technetium 99m Cardiolite and subsequently stress SPECT Cardiolite nuclear imaging was obtained in the horizontal long, vertical long, and short axis views. Interpretation: Rest and stress SPECT Cardiolite nuclear imaging status post realignment, normalization, and attenuation correction demonstrate The appearance of relative uniform tracer uptake and myocardial perfusion appearing within normal limits . Impression: 1. Rest and stress SPECT Cardiolite nuclear imaging demonstrate relative uniform tracer uptake and myocardial perfusion appearing within normal limits. 2. A gated Cardiolite study at peak exercise was not performed. This note was generated with [employer] software. It may contain incorrect words, spelling, and punctuation that were not noted in checking the note before signing.
== END ==
PROVIDERS: Family Provider Family Medicine; PCP Family Medicine; Referring Provider Internal Medicine Cardiovascular Disease; Visit Provider Internal Medicine Cardiovascular Disease
DX: I10 Essential (primary) hypertension (principal); I48.91 Unspecified atrial fibrillation; R06.02 Shortness of breath; R06.00 Dyspnea, unspecified
CPT/HCPCS: 78452; 93017; A9500; A4216; J2785

== ENCOUNTER 2018-10-15 12:03 | Outpatient (RCR) | payer MEDICARE, OTHER, SELFPAY ==
[2018-10-03 10:27] VITALS: BMI 50.1
[2018-10-03 14:07] LABS: International Normalized Ratio 2.5; Prothrombin Time (Protime)PT. 26.9 SECONDS (11.7-14.9)
[2018-10-03 14:19] LABS: Anion Gap 9 (5-15); BUN 17 mg/dL (7-18); BUN/Creat Ratio 32.6 RATIO (10-20); Calcium,Total 8.8 mg/dL (8.5-10.1); Chloride 97 mmol/L (98-107); Creatinine, Serum 0.52 mg/dL (0.55-1.02); EST Glomerular Filtration Rate 122 mL/min (>60); Est Glom Filt Rate - Afr Amer 147 mL/min (>60); Glucose 108 mg/dL (74-106); Potassium 4.2 mmol/L (3.5-5.1); Sodium Level 139 mmol/L (136-145)
[2018-10-15 12:34] LABS: International Normalized Ratio 1.7; Prothrombin Time (Protime)PT. 19.7 SECONDS (11.7-14.9)
--- OUTSIDE RECORDS SUMMARY | 2018-12-08 04:10 | XMS RPT_ITS ---
:1945 Author Organization OHIP Care Team Providers Name Role Phone YOLANDE CHAIREZ) Attending Unavailable YOLANDE CHAIREZ) Referring Unavailable YOLANDE CHAIREZ) Referring Unavailable THELMA SINGH Attending Unavailable ROYA DUCKWORTH ([employer]) Referring Unavailable THELMA SINGH Referring Unavailable THELMA SINGH Referring Unavailable YOLANDE CHAIREZ) Referring Unavailable YOLANDE CHAIREZ) Attending Unavailable YOLANDE CHAIREZ) Referring Unavailable YOLANDE CHAIREZ) Referring Unavailable SOFIYA MYERS (PT) Attending Unavailable YOLANDE CHAIREZ) Referring Unavailable JONAH COOPER Attending Unavailable YOLANDE CHAIREZ) Referring Unavailable SOFIYA MYERS (PT) Attending Unavailable YOLANDE CHAIREZ) Referring Unavailable SOFIYA MYERS (PT) Attending Unavailable YOLANDE CHAIREZ) Referring Unavailable SOFIYA MYERS (PT) Attending Unavailable YOLANDE CHAIREZ) Referring Unavailable LUCIA, SOFIYA (PT) Attending Unavailable YOLANDE CHAIREZ) Referring Unavailable LUCIA, SOFIYA (PT) Attending Unavailable YOLANDE CHAIREZ) Referring Unavailable LUCIA, SOFIYA (PT) Attending Unavailable YOLANDE CHAIREZ) Referring Unavailable LUCIA, SOFIYA (PT) Attending Unavailable YOLANDE CHAIREZ) Referring Unavailable LUCIA, SOFIYA (PT) Attending Unavailable YOLANDE CHAIREZ) Referring Unavailable LUCIA, SOFIYA (PT) Attending Unavailable YOLANDE CHAIREZ) Referring Unavailable BURSYOLANDE RAMIREZ () Attending Unavailable YOLANDE CHAIREZ) Referring Unavailable BURSYOLANDE RAMIREZ) Referring Unavailable LUCIA, SOFIYA (PT) Attending Unavailable YOLANDE CHAIREZ) Referring Unavailable LUCIA, SOFIYA (PT) Attending Unavailable YOLANDE CHAIREZ) Referring Unavailable LUCIA, SOFIYA (PT) Attending Unavailable YOLANDE CHAIREZ) Referring Unavailable THELMA SINGH Attending Unavailable ROYA DUCKWORTH ([employer]) Referring Unavailable LUCIA, SOFIYA (PT) Attending Unavailable YOLANDE CHAIREZ) Referring Unavailable THELMA SINGH Referring Unavailable RULA, DEVONTE E Attending Unavailable RULA, DEVONTE E Referring Unavailable RULA, DEVONTE E Referring Unavailable RULA, DEVONTE E Referring Unavailable RULA, DEVONTE E Referring Unavailable LUCIA, SOFIYA (PT) Attending Unavailable YOLANDE CHAIREZ) Referring Unavailable RULA, DEVONTE E Referring Unavailable LUCIA, SOFIYA (PT) Attending Unavailable YOLANDE CHAIREZ) Referring Unavailable RULA, DEVONTE E Referring Unavailable RULA, DEVONTE E Referring Unavailable AXEL SCHNEIDER (PA) Attending Unavailable LUCIA, SOFIYA (PT) Attending Unavailable YOLANDE CHAIREZ) Referring Unavailable AXEL SCHNEIDER (PA) Referring Unavailable Jose Miguel Chairez Attending Unavailable Jose Miguel Chairez Referring Unavailable Jose Miguel Chairez Primary Care Unavailable Shelly Spears Attending Unavailable Albaro Neville Attending Unavailable Jose Miguel Chairez Referring Unavailable Albaro Neville Attending Unavailable Albaro Neville Referring Unavailable Jose Miguel Chairez Primary Care Unavailable Roslyn Garcia Attending Unavailable Roslyn Garcia Referring Unavailable Jose Miguel Chairez Primary Care Unavailable Albaro Neville Attending Unavailable Albaro Neville Referring Unavailable Jose Miguel Chairez Primary Care Unavailable PROBLEMS PROBLEMS DATE TYPE CONDITION / CODE ATTENDING STATUS SOURCE 10/07/2018 Active Gross hematuria / NA Active [facility] R31.0(ICD-10) [facility] [place] Repository 10/03/2018 Unknown I44.4 - Left MoodispaAlbaro martinez Active [place] anterior [facility]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 / Hospital I44.4(ICD-10) Repository 10/03/2018 Unknown I45.10 - MoodispajuanAlbaro Active [place] Unspecified right [facility] bundle-branch Hospital block / Repository I45.10(ICD-10) 10/03/2018 Unknown I48.0 - Paroxysmal Moodisry Albaro Active [place] [facility] fibrillation / [facility] I48.0(ICD-10) Repository 10/03/2018 Unknown I10 - Essential MoodisryAlbaro Active [place] (primary) [facility] hypertension / Hospital I10(ICD-10) Repository 09/11/2018 Active Paroxysmal atrial NA Active [facility] fibrillation / [facility] [place] I48.0(ICD-10) Repository 09/11/2018 Active Obstructive sleep NA Active [facility] apnea (adult) [facility] [place] (pediatric) / Repository G47.33(ICD-10) 04/01/2018 Active Pain in left hip / NA Active [facility] M25.552(ICD-10) [facility] [place] Rep[facility] 03/26/2018 Active Other intermediate NA Active [facility] (current) drug [facility] [place] therapy / Repository Z79.899(ICD-10) 03/04/2018 Active Other secondary NA Active [facility] pulmonary [facility] [place] hypertension / Repository I27.29(ICD-10) 02/21/2018 Active Unknown / THELMA SINGH Active [facility] UNK(Unknown) [facility] [place] Rep[facility] 01/03/2016 Active Essential NA Active [facility] (primary) [facility] [place] hypertension / Repository I10(ICD-10) 10/26/2010 Active Vitamin D NA Active [facility] deficiency, [facility] [place] unspecified / Repository E55.9(ICD-10) PROCEDURES PROCEDURES No Procedure Records FoundRESULTS RESULTS STRESS REPORT Observed: 10/11/2018 Status: F Source: SPRAY 9:05 AM [facility] [place] [place] REPOSITORY [facility] Cardiovascular Services [address] [place] [address] MR#: [id number] Acct: [id number] Name: VENICE CROFT Rep #: [id number] : 1945 73 From: Albaro Neville MD Primary Care: Jose Miguel Chairez MD Status: REG CLI Ordering Dr: Sex: F C Stress Test Report Date: 10/11/2018 Procedure: Pharmacologic stress nuclear imaging study Indications: Atrial fibrillation; shortness of breath/dyspnea Consent: Per the patient Procedure: The patient underwent pharmacologic (Regadenoson) evaluation with a peak heart rate of 100 beats per minute (68% predicted maximal heart rate) and a peak blood pressure of 118/76 mmHg. The baseline ECG demonstrated Atrial fibrillation; right bundle branch block . The peak pharmacologic ECG demonstrated no obvious ECG changes . There was an isolated PVC during infusion; occasional PVCs during recovery . There was no complaint of chest discomfort during pharmacologic infusion or recovery. The examination was discontinued secondary to completion of protocol. Impression: 1. Pharmacologic (Regadenoson) evaluation 2. Peak pharmacologic ECG with Continued atrial fibrillation with right bundle branch block with no obvious ECG changes . 3. There was an isolated PVC during infusion and an occasional PVCs during recovery . 4. Nuclear images pending Myocardial perfusion imaging study: Technique: The patient was injected with 14.3 millicuries of technetium 99m Cardiolite and subsequently rest SPECT Cardiolite nuclear imaging was obtained in the horizontal long, vertical long, and short axis views. The patient underwent pharmacologic (Regadenoson) evaluation with a peak heart rate of 100 beats per minute (68 % percent predicted maximal heart rate) and a peak blood pressure of 118/76 mmHg. The patient was injected with 44.8 millicuries of technetium 99m Cardiolite and subsequently stress SPECT Cardiolite nuclear imaging was obtained in the horizontal long, vertical long, and short axis views. Interpretation: Rest and stress SPECT Cardiolite nuclear imaging status post realignment, normalization, and attenuation correction demonstrate The appearance of relative uniform tracer uptake and myocardial perfusion appearing within normal limits . Impression: 1. Rest and stress SPECT Cardiolite nuclear imaging demonstrate relative uniform tracer uptake and myocardial perfusion appearing within normal limits. 2. A gated Cardiolite study at peak exercise was not performed. This note was generated with Caviar dictation software. It may contain incorrect words, spelling, and punctuation that were not noted in checking the note before signing. 10/11/18904 <Electronically signed by Albaro Neville MD> Date Albaro Neville MD CC: Jose Miguel Chaierz MD; Albaro Neville MD Date Dictated: 10/11/18901 Date Transcribed: 10/11/18901 Meat Cooler: PM Signed CT ABD/PELVIS W/WO Observed: 10/09/2018 Status: F Source: [place] CONTRAST 1:16 PM [facility] [place] [place] REPOSITORY [facility] Imaging Services [address] [place] [id number] [address] Abd/Pelvis W/WO Contrast MR#: [id number] Acct: [id number] Name: VENICE CROFT Rep #: [id number] : 1945 F 73 From: Jim Watters MD PCP: Jose Miguel Chairez MD Status: REG CLI Study: CT Abd/Pelvis W/WO Contrast Date of Exam: 10/09/18 Exam# [id number] Ordering Dr: Roslyn Garcia ORDER PICKER/ASSEMBLER-C STUDY: CT ABDOMEN AND PELVIS WITH AND WITHOUT CONTRAST REASON FOR EXAM: Female, 73 years old. Gross hematuria. History of pulmonary hypertension. RADIATION DOSAGE (If Supplied By Facility): CTDIvol = ( 31.32 ) mGy, DLP = ( 2855.81 ) mGycm TECHNIQUE: Transaxial images were obtained from the dome of the diaphragm to the symphysis pubis without oral contrast. 100CC ml of Isovue 300 contrast was administered. Sagittal and coronal images were reconstructed. Individualized dose optimization techniques were used for this CT. COMPARISON: None. FINDINGS: The visualized lung bases are unremarkable. The visualized portions of the heart are within normal limits. There is decreased attenuation of the liver consistent with steatosis. Normal gallbladder and extrahepatic biliary system. There are multiple benign calcified granulomata of the spleen. Normal pancreas. Normal bilateral adrenal glands. Normal right kidney. Normal left kidney. The stomach is distended with residual food. Gastroparesis should be ruled out. Normal small intestine. Normal colon. The appendix is visualized and appears normal. There is diffuse atherosclerotic calcification of the abdominal aorta, without a demonstrated aneurysm. Normal inferior vena cava. There is borderline retroperitoneal lymphadenopathy with enlarged nodes no greater than 10mm in the short axis diameter. Small bilateral benign-appearing inguinal lymph nodes. Normal urinary bladder. Normal abdominal wall. There are diffuse degenerative changes of the visualized lumbar spine. Status post right hip replacement. CT/CT Abd/Pelvis W/WO Contrast IMPRESSION: Gastric distention with air and residual food. Electronically Signed: Jim Watters MD at 15:51 EST , Service support , CC: Jose Miguel Chairez MD; Roslyn Garcia NP Meat Cooler: Signed CBC AND DIFFERENTIAL Collected: 10/07/2018 Status: F Source: [place] 4:14 PM [facility] REPOSITORY TYPE CODE TESTS RESULT OUT OF REFERENCE UNITS RANGE LAB WBC 3.70-11.00 k/uL WBC 6.03 LAB RBC 3.90-5.20 m/uL RBC 4.50 LAB HGB 11.5-15.5 g/dL Hemoglobin 13.2 LAB HCT 36.0-46.0 % Hematocrit 42.4 LAB MCV 80.0-100.0 fL MCV 94.2 LAB MCH 26.0-34.0 pG MCH 29.3 LAB MCHC 30.5-36.0 g/dL MCHC 31.1 LAB RDWCV 11.5-15.0 % RDW-CV 12.3 LAB PLTCT 150-400 k/uL Platelet Count 183 LAB MPV 9.0-12.7 fL MPV 11.1 LAB ANEUT % Neut% 66.6 LAB AANEUT 1.45-7.50 k/uL Abs Neut 4.00 LAB ALYMP % Lymph% 22.9 LAB AALYMP 1.00-4.00 k/uL Abs Lymph 1.38 LAB AMONO % Ringgold% 8.0 LAB AAMONO <0.87 k/uL Abs Ringgold 0.48 LAB AEOS % Eosin% 2.2 LAB AAEOS <0.46 k/uL Abs Eosin 0.13 LAB ABASO % Baso% 0.3 LAB AABASO <0.11 k/uL Abs Baso <0.03 LAB AUNRBC 0 /100 WBC NRBCs 0.0 LAB ABNRBC <0.01 k/uL Absolute nRBC <0.01 LAB DTYP DTYPE Auto Diff Performed By: #### CBCDIF, BMP #### [facility] [address] [place], [place] [address] BASIC METABOLIC PANL Collected: 10/07/2018 Status: F Source: [place] 4:14 PM [facility] [place] REPOSITORY TYPE CODE TESTS RESULT OUT OF REFERENCE UNITS RANGE LAB GLU 74-99 mg/dL High Glucose 100 Result Comment: The Canadian Diabetes Association (ADA) provides guidance for cutoff values for fasting glucose and random glucose. The ADA defines fasting as no caloric intake for at least 8 hours. Fas ting plasma glucose results between 100 to 125 mg/dL indicate increased risk for diabetes (prediabetes). Fasting plasma glucose results greater than or equal to 126 mg/dL meet the criteria for diagnosis of diabetes. In the absence of unequivocal hyperglycemia, results should be confirmed by repeat testing. In a patient with classic symptoms of hyperglycemia or hyperglycemic crisis, random plasma glucose results greater than or equal to 200 mg/dL meet the criteria for diagnosis of diabetes. Reference: Standards of Medical Care in Diabetes 2016, Canadian Diabetes Association. Diabetes Care. 2016.39(Suppl 1). LAB BUN 7-21 mg/dL BUN 13 LAB CRET 0.58-0.96 mg/dL Low Creatinine 0.53 LAB NA 136-144 mmol/L Sodium 140 LAB K 3.7-5.1 mmol/L Potassium 4.3 LAB CL 97-105 mmol/L Low Chloride 93 LAB CO2 22-30 mmol/L CO2 High 37 LAB AGAP 9-18 mmol/L Anion Gap 10 LAB CA 8.5-10.2 mg/dL Calcium, Total 9.6 LAB GFRAA eGFR- Amer. >60 LAB GFRNAA . eGFR-All Other Races >60 Result Comment: eGFR (Estimated GFR) Units of measure: mL/min/1.73 meters squared eGFR is derived from the reexpressed MDRD Study equation using the following parameters: serum creatinine, age, gender and race. The creatinine assay has been calibrated to be traceable to IDMS. An eGFR <60 mL/min/1.73m2 for >3 months is consistent with chronic kidney disease. Refer to KDOQI guidelines for clinical interpretation. In patients with unstable renal function, e.g. those with acute kidney injury, the eGFR may not accurately reflect actual GFR. Performed By: #### CBCDIF, BMP #### [facility] [address] [place], [place] [address] PROGRESS Observed: 10/06/2018 Status: COMPLETED Source: [place] 12:36 PM [facility] [place] REPOSITORY HNO ID: [id number] Author: Sofiya (Pt) Lucia Service: (none) Author Type: Physical Therapist Type: Progress Notes Filed: 10/06/2018 12:37 PM Note Text: Episode Visit Count: 17 Therapist That Will Oversee The Plan Of Care: Sofiya Myers PT Start of Care Date: 04/12/18 Onset Date: 02/21/18 Plan of Care Certification Date: 09/24/18 Patient Identified by Name and Date of : Yes REHABILITATION AND SPORTS THERAPY PHYSICAL THERAPY TREATMENT NOTE ASSESSMENT: Venice Croft demonstrated improvements in having no pitting on tops of feet or ankles and softer medial lobes of skin by knees and less dry skin due to daily application of Eucerin lotion. The patient will continue to benefit from continued skilled physical therapy for CDT. PLAN FOR NEXT VISIT: Con't with MLD of B LEs SUBJECTIVE: Patient is passing blood through her urine. And just gave a urine sample and is trying to figure out why. Leg tightness/heavines is better. (Pt is applying Eurcerin daily now.) Pain Score: 3/10 Pain Location: Leg - Right;Leg - Left Description: Tightness (heaviness) Frequency: Intermittent Post Treatment Pain Score: No Change OBJECTIVE MEASURES WITH LEVEL OF FUNCTION: Lymphedema Skin Comments:: No pitting in tops of feet or ankles. Medial lobes by knees less fibrotic; softer in texture (less flaky skin on legs) TREATMENT: Manual Therapy: 3: MLD: Short Neck, patient performed 5 diaphramatic breathing breaths, B Groins, and B LE Skilled Intervention: Manual skills to improve joint mobility, ROM, and decrease pain. Utilized anatomy knowledge of the therapist, and assessment of patient's response to intervention. Billing: [facility]: Manual Therapy ([id number]): 1:1 time: 45 minutes (3 units: 38-52 mins) Total time: 45 minutes Sofiya Myers PT CNTHERAPY Observed: 10/04/2018 Status: COMPLETED Source: [place] 1:15 PM [facility] [place] REPOSITORY OT/PT/Speech Visit (PTWS) VENICE CROFT ([id number]) 1945 F Date Time Provider Department 10/04/18 1:15 PM SOFIYA MYERS (PT) PTWS Date Time Provider Department Center 10/04/2018 1:15 PM [id number], DIANA (PT)PTWS [facility] Reason for Visit: Physical Therapy [503] Primary Visit Diagnosis:Pain in left hip [M25.552] Other Visit Diagnosis:Pain in the groin, left [R10.32] Allergies As of Date: 10/04/2018 Noted Allergy Reaction DANIEL INHIBITORS 06/15/2005 7 - Swelling Comments: Angioedema. Lips. LIPITOR (ATORVASTATIN CALCIUM) 06/15/2005 Comments: Muscle aches PANAFIL ([id number]-[id number]-[id number]*08/18/2005 5 - Intolerance Comments: ? AMPICILLIN 06/15/2005 2 - Rash Comments: Bilateral arms. DARVOCET-N 100 (PROPOXYPHENE N-AC*01/31/2010 1 - Mental Status Change 14 - Other: See Comments Comments: Dizziness. PERCOCET (OXYCODONE-ACETAMINOPHEN)01/31/2010 1 - Mental Status Change Date Reviewed: 10/04/2018 Reviewed by: Janae Schneider - Fully Assessed Prescriptions as of 10/04/2018 Sig: DOXYCYCLINE MONOHYDRATE 100 M* Take 1 capsule by mouth once * WARFARIN 4 MG TABLET Take 1 tablet by mouth once d* SPIRONOLACTONE 25 MG TABLET Take 1 tablet by mouth once d* SIMVASTATIN 20 MG TABLET TAKE 0.5 TABLETS BY MOUTH MATTHEW* CETIRIZINE 10 MG TABLET Take 1 tablet by mouth once d* COMPOUNDED PRESCRIPTION KNEE HIGH COMPRESSION STOCKIN* HYDROCHLOROTHIAZIDE 25 MG TAB* TAKE 0.5 TABLETS BY MOUTH ONC* FLUTICASONE 50 MCG/ACTUATION * Use 2 Sprays in each nostril * MUCINEX DM ORAL Take by mouth twice daily. LANSOPRAZOLE 15 MG CAPSULE,DE* Take 2 capsules by mouth ever* ASPIRIN 81 MG TABLET,DELAYED * Take 1 tablet by mouth once d* CPAP Decrease the Bilevel setting * COMPOUNDED PRESCRIPTION Home Oxygen @ 2L-4L Nasal Can* CHOLECALCIFEROL (VITAMIN D3) * Take one(1) tablet two(2) corinne* Progress Notes: Sofiya Myers PT 10/06/2018 12:37 PM Signed Episode Visit Count: 17 Therapist That Will Oversee The Plan Of Care: Sofiya Myers PT Start of Care Date: 04/12/18 Onset Date: 02/21/18 Plan of Care Certification Date: 09/24/18 Patient Identified by Name and Date of : Yes REHABILITATION AND SPORTS THERAPY PHYSICAL THERAPY TREATMENT NOTE ASSESSMENT: Venice Benigno Croft demonstrated improvements in having no pitting on tops of feet or ankles and softer medial lobes of skin by knees and less dry skin due to daily application of Eucerin lotion. The patient will continue to benefit from continued skilled physical therapy for CDT. PLAN FOR NEXT VISIT: Con't with FR[facility] of Mat Reed SUBJECTIVE: Patient is passing blood through her urine. And just gave a urine sample and is trying to figure out why. Leg tightness/heavines is better. (Pt is applying Eurcerin daily now.) Pain Score: 3/10 Pain Location: Leg - Right;Leg - Left Description: Tightness (heaviness) Frequency: Intermittent Post Treatment Pain Score: No Change OBJECTIVE MEASURES WITH LEVEL OF FUNCTION: Lymphedema Skin Comments:: No pitting in tops of feet or ankles. Medial lobes by knees less fibrotic; softer in texture (less flaky skin on legs) TREATMENT: Manual Therapy: 3: MLD: Short Neck, patient performed 5 diaphramatic breathing breaths, B Groins, and B LE Skilled Intervention: Manual skills to improve joint mobility, ROM, and decrease pain. Utilized anatomy knowledge of the therapist, and assessment of patient's response to intervention. Billing: [facility]: Manual Therapy ([id number]): 1:1 time: 45 minutes (3 units: 38-52 mins) Total time: 45 minutes Sofiya Myers PT Observed: 10/04/2018 Status: F Source: [place] URINE CULTURE 11:42 AM [facility] REPOSITORY Sp. Request/Comment: - Specimen received in preservative Culture Result - No growth (<1,000 CFU/ml) Performed By: #### URCUL #### [facility] [address] [address] PROGRESS Observed: 10/04/2018 Status: COMPLETED Source: [place] 11:16 AM [facility] REPOSITORY HNO ID: [id number] Author: Janae Schneider Service: (none) Author Type: Physician Head Bookkeeper Type: Progress Notes Filed: 10/04/2018 2:22 PM Note Text: 10/04/2018 No chief complaint on file. SUBJECTIVE: This is a 73 year old that is here today for Above Complaints.. Urology: patient is concerned about urinary symptoms. Duration of symptoms: 3 days about Dysuria: No. Hematuria: Yes. Urinary urgency: No. Urinary frequency: No. Suprapubic pain: No. Back pain: No. Fever: No. Nausea: No. Vomiting: No Patient was started on coumadin in August. Has been seeing Dr. Moreno who instructed her to stop her warfarin and have urine checked. 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 Boyd - Fracture - Gastroparesis - GERD (gastroesophageal reflux disease) - History of poliomyelitis age 8 - History of staph infection Seeing Dr. Rinaldi yearly, on doxycycline - Impaired glucose tolerance test - Morbid obesity with BMI of 50.0-59.9, adult ([facility]) - On home oxygen therapy - Open wound of knee, leg (except thigh), and ankle, complicated - JUSTINA (obstructive sleep apnea) BiPAP 13/8 nightly - Pulmonary hypertension (HCC) Seeing Dr. Singh - Pure hypercholesterolemia - Unspecified essential hypertension - Venous stasis dermatitis ALLERGIES Daniel Inhibitors; Lipitor [Atorvastatin Calcium]; Panafil [Fdpulg-Ffzp-Djmcwundsvjrl]; Ampicillin; Darvocet-N 100 [Propoxyphene N-Acetaminophen]; Percocet [Oxycodone-Acetaminophen] MEDICATIONS Current Outpatient Prescriptions: warfarin (COUMADIN) 4 mg tablet Take 1 tablet by mouth once daily. spironolactone (ALDACTONE) 25 mg tablet Take 1 tablet by mouth once daily. simvastatin (ZOCOR) 20 mg tablet TAKE 0.5 TABLETS BY MOUTH DAILY AT BEDTIME. cetirizine (ZYRTEC) 10 mg tablet Take 1 tablet by mouth once daily. Compression Knee Highs KNEE HIGH COMPRESSION STOCKINGS 30- 40 MM. DX: EDEMA hydroCHLOROthiazide (HYDRODIURIL, ESIDRIX) 25 mg tablet TAKE 0.5 TABLETS BY MOUTH ONCE DAILY. fluticasone (FLONASE) 50 mcg/actuation nasal spray Use 2 Sprays in each nostril once daily. lansoprazole (PREVACID) 15 mg capsule Take 2 capsules by mouth every evening. aspirin, enteric coated (ADULT LOW DOSE ASPIRIN) 81 mg EC tablet Take 1 tablet by mouth once daily. CPAP Decrease the Bilevel setting to 13/8 cm h20 with 3 LPM of oxygen. Cholecalciferol, Vitamin D3, (VITAMIN D) 2,000 unit ORAL Cap Take one(1) tablet two(2) times daily. GUAIFENESIN/DEXTROMETHORPHAN (MUCINEX DM ORAL) Take by mouth twice daily. COMPOUNDED PRESCRIPTION Home Oxygen @ 2L-4L Nasal Canula - continuous Diagnoses: Hypoxia 799.02, Dyspnea 786.09, Pulmonary Hypertension 416.8 No current facility-administered medications for this visit. SOCIAL HISTORY Social History Marital status: Single Spouse name: Years of education: Number of children: 0 Occupational History Occupation Employer Comment Retired [employer] Social History Main Topics Smoking status: Never Smoker Smokeless tobacco: Never Used Comment: Parents non-smokers. Alcohol use: No Drug use: No Sexual activity: No REVIEW OF SYSTEMS All other reviewed and negative other than HPI. OBJECTIVE: BP 134/68 (BP Site: Left Arm, BP Position: Sitting, BP Cuff Size: Regular Adult) Pulse 72 Temp 36.7 ?C (98 ?F) (Tympanic) Resp 14 Wt 132.5 kg (292 lb) BMI 50.12 kg/m? APPEARANCE Well appearing, alert, in no acute distress, well-hydrated, well nourished. NECK Supple, no adenopathy; thyroid symmetric, normal size, no bruits HEART RRR with normal S1 and S2, no murmurs, no gallops, no JVD appreciated LUNG clear to auscultation ABDOMEN bowel sounds normoactive, no bruits, soft, non-tender, non-distended, without organomegaly or palpable masses, Neg for CVA, no tenderness to palpation DATA REVIEWED U/A today showed large amount of blood and trace protein. Rest of UA wnl ASSESSMENT/PLAN: 1. Gross hematuria - ICD9: 599.71, ICD10: R31.0 (primary diagnosis) Without s/s of UTI and gross hematuria with leuks, nitrates, or ketones, concern would be bladder pathology vs less likely UTI. However, we will send urine for Culture to rule out UTI. No other recent UA to compare to so unsure if patient has had microscopic hematuria prior to starting the coumadin. Urology consult scheduled for patient with [facility] for Sunday afternoon. We will send Cardiology update. - UA DIP, URINE (POC) - URINE CULTURE - CONSULT TO UROLOGY 2. Hematuria, unspecified type - ICD9: 599.70, ICD10: R31.9 See above. - UA DIP, URINE (POC) KOFI MARSHALL Observed: 10/04/2018 Status: COMPLETED Source: [place] 11:00 AM [facility] REPOSITORY Office Visit (FAMPWS) VENICE CROFT ([id number]) 1945 F Date Time Provider Department 10/04/18 11:00 AM LATOYA SCHNEIDER) PREMA During your visit today, we recorded the following information about you: Temperature Pulse Respiration Blood pressure 98 degrees 72/minute 14/minute 134/68 Weight 132.5 kg AXEL SCHNEIDER PA-C 10/04/2018 2:22 PM Signed 10/04/2018 No chief complaint on file. SUBJECTIVE: This is a 73 year old that is here today for Above Complaints.. Urology: patient is concerned about urinary symptoms. Duration of symptoms: 3 days about Dysuria: No. Hematuria: Yes. Urinary urgency: No. Urinary frequency: No. Suprapubic pain: No. Back pain: No. Fever: No. Nausea: No. Vomiting: No Patient was started on coumadin in August. Has been seeing Dr. Moreno who instructed her to stop her warfarin and have urine checked. 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 Boyd - Fracture - Gastroparesis - GERD (gastroesophageal reflux disease) - History of poliomyelitis age 8 - History of staph infection Seeing Dr. Rinaldi yearly, on doxycycline - Impaired glucose tolerance test - Morbid obesity with BMI of 50.0-59.9, adult ([facility]) - On home oxygen therapy - Open wound of knee, leg (except thigh), and ankle, complicated - JUSTINA (obstructive sleep apnea) BiPAP 29/04 nightly - Pulmonary hypertension ([facility]) Seeing Dr. Singh - Pure hypercholesterolemia - Unspecified essential hypertension - Venous stasis dermatitis ALLERGIES Daniel Inhibitors; Lipitor [Atorvastatin Calcium]; Panafil [Rxtund-Hjid-Llzvnkmzxwtuo]; Ampicillin; Darvocet-N 100 [Propoxyphene N-Acetaminophen]; Percocet [Oxycodone-Acetaminophen] MEDICATIONS Current Outpatient Prescriptions: warfarin (COUMADIN) 4 mg tablet Take 1 tablet by mouth once daily. spironolactone (ALDACTONE) 25 mg tablet Take 1 tablet by mouth once daily. simvastatin (ZOCOR) 20 mg tablet TAKE 0.5 TABLETS BY MOUTH DAILY AT BEDTIME. cetirizine (ZYRTEC) 10 mg tablet Take 1 tablet by mouth once daily. Compression Knee Highs KNEE HIGH COMPRESSION STOCKINGS 30- 40 MM. DX: EDEMA hydroCHLOROthiazide (HYDRODIURIL, ESIDRIX) 25 mg tablet TAKE 0.5 TABLETS BY MOUTH ONCE DAILY. fluticasone (FLONASE) 50 mcg/actuation nasal spray Use 2 Sprays in each nostril once daily. lansoprazole (PREVACID) 15 mg capsule Take 2 capsules by mouth every evening. aspirin, enteric coated (ADULT LOW DOSE ASPIRIN) 81 mg EC tablet Take 1 tablet by mouth once daily. CPAP Decrease the Bilevel setting to 13/8 cm h20 with 3 LPM of oxygen. Cholecalciferol, Vitamin D3, (VITAMIN D) 2,000 unit ORAL Cap Take one(1) tablet two(2) times daily. GUAIFENESIN/DEXTROMETHORPHAN (MUCINEX DM ORAL) Take by mouth twice daily. COMPOUNDED PRESCRIPTION Home Oxygen @ 2L-4L Nasal [place] - continuous Diagnoses: Hypoxia 799.02, Dyspnea 786.09, Pulmonary Hypertension 416.8 No current facility-administered medications for this visit. SOCIAL HISTORY Social History Marital status: Single Spouse name: Years of education: Number of children: 0 Occupational History Occupation Employer Comment Retired [employer] Social History Main Topics Smoking status: Never Smoker Smokeless tobacco: Never Used Comment: Parents non-smokers. Alcohol use: No Drug use: No Sexual activity: No REVIEW OF SYSTEMS All other reviewed and negative other than HPI. OBJECTIVE: BP 134/68 (BP Site: Left Arm, BP Position: Sitting, BP Cuff Size: Regular Adult) Pulse 72 Temp 36.7 ?C (98 ?F) (Tympanic) Resp 14 Wt 132.5 kg (292 lb) BMI 50.12 kg/m? APPEARANCE Well appearing, alert, in no acute distress, well- hydrated, well nourished. NECK Supple, no adenopathy; thyroid symmetric, normal size, no bruits HEART RRR with normal S1 and S2, no murmurs, no gallops, no JVD appreciated LUNG clear to auscultation ABDOMEN bowel sounds normoactive, no bruits, soft, non-tender, non-distended, without organomegaly or palpable masses, Neg for CVA, no tenderness to palpation DATA REVIEWED U/A today showed large amount of blood and trace protein. Rest of UA wnl ASSESSMENT/PLAN: 1. Gross hematuria - ICD9: 599.71, ICD10: R31.0 (primary diagnosis) Without s/s of UTI and gross hematuria with leuks, nitrates, or ketones, concern would be bladder pathology vs less likely UTI. However, we will send urine for Culture to rule out UTI. No other recent UA to compare to so unsure if patient has had microscopic hematuria prior to starting the coumadin. Urology consult scheduled for patient with [facility] for Sunday afternoon. We will send Cardiology update. - UA DIP, URINE (POC) - URINE CULTURE - CONSULT TO UROLOGY 2. Hematuria, unspecified type - ICD9: 599.70, ICD10: R31.9 See above. - UA DIP, URINE (POC) AXEL SCHNEIDER PA-C Referring Provider: SELF [[id number]] Allergies As of Date: 10/04/2018 Noted Allergy Reaction DANIEL INHIBITORS 06/15/2005 7 - Swelling Comments: Angioedema. Lips. LIPITOR (ATORVASTATIN CALCIUM) 06/15/2005 Comments: Muscle aches PANAFIL ([id number]-[id number]*08/18/2005 5 - Intolerance Comments: ? AMPICILLIN 06/15/2005 2 - Rash Comments: Bilateral arms. DARVOCET-N 100 (PROPOXYPHENE N-AC*01/31/2010 1 - Mental Status Change 14 - Other: See Comments Comments: Dizziness. PERCOCET (OXYCODONE-ACETAMINOPHEN)01/31/2010 1 - Mental Status Change Date Reviewed: 10/04/2018 Reviewed by: Latoya) Wyatt - Fully Assessed Reason for Visit: Hematuria [335] Primary Visit Diagnosis:Gross hematuria [R31.0] Other Visit Diagnosis:Hematuria, unspecified type [R31.9] Order(s):doxycycline monohydrate (MONODOX) 100 mg capsuleTake 1 capsule by mouth once daily.Disp: 90 capsuleRfl: 3 UA DIP, URINE (POC) [2407970] Order #: [id number] URINE CULTURE [SQURCUL] Order #: [id number] CONSULT TO UROLOGY [5525] Order #: [id number]: 1 Prescriptions as of 10/04/2018 Sig: WARFARIN 4 MG TABLET Take 1 tablet by mouth once d* SPIRONOLACTONE 25 MG TABLET Take 1 tablet by mouth once d* SIMVASTATIN 20 MG TABLET TAKE 0.5 TABLETS BY MOUTH MATTHEW* CETIRIZINE 10 MG TABLET Take 1 tablet by mouth once d* COMPOUNDED PRESCRIPTION KNEE HIGH COMPRESSION STOCKIN* HYDROCHLOROTHIAZIDE 25 MG TAB* TAKE 0.5 TABLETS BY MOUTH ONC* FLUTICASONE 50 MCG/ACTUATION * Use 2 Sprays in each nostril * LANSOPRAZOLE 15 MG CAPSULE,DE* Take 2 capsules by mouth ever* ASPIRIN 81 MG TABLET,DELAYED * Take 1 tablet by mouth once d* CPAP Decrease the Bilevel setting * CHOLECALCIFEROL (VITAMIN D3) * Take one(1) tablet two(2) corinne* DOXYCYCLINE MONOHYDRATE 100 M* Take 1 capsule by mouth once * MUCINEX DM ORAL Take by mouth twice daily. COMPOUNDED PRESCRIPTION Home Oxygen @ 2L-4L Nasal Can* Problem List As Of Date 10/04/2018 Noted Resolved Pure Hypercholesterolemia [E78.00] INVALID FOR* More... Essential hypertension [I10] INVALID FOR* More... 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 Lymphedema, not elsewhere classified [I89.0] INVALID FOR* Benign neoplasm of colon [D12.6] INVALID FOR*08/19/2012 Achilles bursitis or tendinitis [M76.60] INVALID FOR*08/19/2012 Unspecified sleep apnea [G47.30] INVALID FOR*06/13/2016 More... Non-healing surgical wound [T81.89XA] INVALID FOR*08/19/2012 Protein calorie malnutrition [E46] INVALID FOR*08/19/2012 More... PUD (peptic ulcer disease) [K27.9] INVALID FOR*08/19/2012 More... Pain in joint [M25.50] INVALID FOR*06/13/2016 Vitamin D deficiency [E55.9] INVALID FOR* Preop exam for internal medicine [Z01.818] 08/19/2012 Open wound of knee, leg (except thigh), and ank*INVALID FOR*08/19/2012 Hypertension [I10] INVALID FOR*06/13/2016 BMI 50.0-59.9, adult ([facility]) [Z68.43] INVALID FOR*06/16/2014 JUSTINA (obstructive sleep apnea) [G47.33] INVALID FOR* Pulmonary hypertension (HCC) [I27.20] INVALID FOR* BMI 45.0-49.9, adult (HCC) [Z68.42] INVALID FOR*10/15/2014 BMI 40.0-44.9, adult ([facility]) [Z68.41] INVALID FOR*03/28/2017 More... Allergic rhinitis [J30.9] INVALID FOR* Impaired glucose metabolism [R73.09] INVALID FOR*08/01/2018 More... On home oxygen therapy [Z99.81] INVALID FOR* Staphylococcus epidermidis infection [B95.7] INVALID FOR*03/28/2017 Dysphagia, unspecified(787.20) [R13.10] INVALID FOR* Morbid obesity with BMI of 50.0-59.9, adult (HC* Venous stasis dermatitis [I87.2] Pain in left hip [M25.552] INVALID FOR* Pain in the groin, left [R10.32] INVALID FOR* PAF (paroxysmal atrial fibrillation) ([facility]LY [facility]) [I48*INVALID FOR* Prescriptions ordered this encounter Disp Refills Start End DOXYCYCLINE MONOHYDRATE 100 MG CAPSU* 90 c* 3 10/04/2018 01/02/2019 Class: Med Update Route: ORAL Sig: Take 1 capsule by mouth once daily. Medications Discontinued During This Encounter doxycycline monohydrate (MONODOX) 10* 90 c* 3 09/06/2017 10/04/2018 Route: ORAL Sig: Take 1 capsule by mouth once daily. Disc: Reason for discontinue is not on file. Encounter Status:Closed by AXEL MAS on 10/04/18 PROTHROMBIN TIME W/INR Collected: 10/03/2018 Status: F Source: [place] [address]:10 PM [facility] [place] [place] REPOSITORY Order Comment: Comments: STANDING ORDER Comments: STANDING ORDER TYPE CODE TESTS RESULT OUT OF RANGE REFERENCE UNITS LAB L300.4150 11.7-14.9 SECONDS High PROTIME 26.9 LAB L300.4200 Normal INR 2.5 Performed By: #### L300.3900 #### [facility] [address] [place], [place], [address] BASIC METABOLIC Collected: 10/03/2018 Status: F Source: [place] PROFILE (BMP) 12:10 PM [facility] [place] [place] REPOSITORY TYPE CODE TESTS RESULT OUT OF RANGE REFERENCE UNITS LAB L501.0100 74-106 mg/dL High GLU 108 Result Comment: Fasting Glucose result from 100 to 125 mg/dL suggests IMPAIRED HOMEOSTASIS per A.D.A. criteria. Please note revised GLUCOSE reference range effective 2017. LAB L501.1000 7-18 mg/dL Normal BUN 17 LAB L501.1100 0.55-1.02 mg/dL Low CREAT,SERUM 0.52 Result Comment: The validity of the calculated GFR AND GFRAA in patients over 70 years has not been determined. Clinical correlation is essential. LAB L501.1110 >60 mL/min Normal EST GFR 122 Result Comment: Non- GFR Calc LAB L501.1115 >60 mL/min Normal EST GFR - AA 147 Result Comment: GFR Calc LAB L501.1300 10-20 RATIO High BUN/CRE 32.6 LAB L501.2200 8.5-10.1 mg/dL CA Normal 8.8 LAB L501.5300 136-145 mmol/L NA Normal 139 LAB L501.5600 3.5-5.1 mmol/L K Normal 4.2 LAB L501.5900 98-107 mmol/L Low CL 97 LAB L501.6100 21.0-32.0 mmol/L High CO2 33.0 LAB L501.6200 5-15 Normal GAP 9 Performed By: #### L500.2500 #### [facility] [address] [place], [address] CARDIOLOGY VISIT Observed: 10/03/2018 Status: F Source: [place] REPORT 11:48 AM [facility] REPOSITORY [facility] [address] [place] [address] OFFICE VISIT Date of Service: 10/03/18 MR#: [id number] Acct: [id number] Name: VENICE CROFT Rep #: [id number] : 1945 Provider: Albaro Neville MD Age/Sex: 73/F Location: [facility] Status: Signed HPI HPI Details: VENICE CROFT, is a 73 F who presents to the office today for Outpatient cardiovascular consultation for concerns of underlying atrial fibrillation. She states during a routine outpatient follow up with her customer service correspondence clerk she was noted to have an irregular heart rate. She was subsequently found to be in atrial fibrillation by ECG demonstrating left axis deviation with a right bundle branch block pattern and a left anterior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 pattern as well as potentially voltage criteria for LVH and a lateral NH of indeterminate age which could not be excluded. She was evaluated by Dr. Devonte Wallis of cardiology. She was treated medically with adjustment of her diuretic medication with the addition of spironolactone/Aldactone. She was placed on anticoagulant therapy with warfarin/Coumadin. She does not seem to a sense her underlying rate and/or rhythm. She denies any ongoing chest discomfort. She has chronic shortness of breath and dyspnea which has been attributed to obstructive sleep apnea for which she wears oxygen therapy and CPAP therapy. She has not had orthopnea or PND. She has chronic bilateral lower extremity peripheral pitting edema times many years which she states was told at 1 time might be related to problems with her veins in her legs. She does note that since starting medical management with spironolactone/Aldactone she has lost approximately 10 pounds and she states her legs and feet feel better. She is due to have her INR checked. She notes that besides medical management she was told at some point in time in the future she may need consideration for DC cardioversion therapy. She had a followup ECG in the office today. She remains in atrial fibrillation with a controlled ventricular response with left axis deviation and a right bundle branch block pattern and possible left anterior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. There is notation of possible lateral NH of indeterminate age. She did have a transthoracic echocardiogram performed through the [facility] system. Per the report available for review it appears that the left ventricle was thought to be normal with an LVEF of 57%, the right ventricle was dilated about the function was reported as normal, the left atrium was reported as normal, the right atrium was reported as dilated, the mitral valve had trace to mild MR, the tricuspid valve had mild TR, the aortic valve was reported as no stenosis or regurgitation, estimated RV systolic pressure was reported at 47 mmHg compatible pulmonary hypertension. Intake Vital Signs10/03/18 Height 5 ft 4 in 10/03/18 Weight: 292 lb 10/03/18 Body Mass Index (BMI) 50.1 10/03/18 Blood Pressure 126/68 H Intake Visit Reasons: A-fib/previous Rula pt Allergies DANIEL Inhibitors Allergy (Verified 10/03/18 10:27) Hives ampicillin Allergy (Verified 10/03/18 10:27) Hives atorvastatin [From Lipitor] Allergy (Verified 10/03/18 10:27) Other chlorophyllin [From Panafil] Allergy (Verified 10/03/18 10:27) Other oxycodone [From Percocet] Allergy (Verified 10/03/18 10:27) Upset Stomach papain [From Panafil] Allergy (Verified 10/03/18 10:27) Other propoxyphene [From Darvocet-N] Allergy (Verified 10/03/18 10:27) Upset Stomach urea [From Panafil] Allergy (Verified 10/03/18 10:27) Other Medications Aspirin E.C. [Ecotrin] 81 mg PO DAILY@0800 11/10/16 [History Confirmed 10/03/18] Cetirizine HCl [Zyrtec] 10 mg PO DAILY 11/10/16 [History Confirmed 10/03/18] Cholecalciferol (Vitamin D3) [Vitamin D3] 2,000 unit PO BID 11/10/16 [History Confirmed 10/03/18] Fluticasone 0.05% [Flonase Nasal [place]] 1 spray NASAL DAILY 11/10/16 [History Confirmed 10/03/18] Hydrochlorothiazide [Hctz] 12.5 mg PO DAILY 11/10/16 [History Confirmed 10/03/18] Lansoprazole [Prevacid] 30 mg PO DAILY 11/10/16 [History Confirmed 10/03/18] Multivitamin [Daily Multiple Vitamin] 1 ea PO DAILY 11/10/16 [History Confirmed 10/03/18] spironolactone 25 mg tablet 25 mg PO DAILY 09/27/18 [History Confirmed 10/03/18] warfarin 4 mg tablet 4 mg PO DAILY 09/27/18 [History Confirmed 10/03/18] doxycycline hyclate 100 mg tablet 100 mg PO DAILY 10/03/18 [History Confirmed 10/03/18] simvastatin 10 mg tablet 20 mg PO QHS tab 10/03/18 [History Confirmed 10/03/18] PFSH Medical History On home oxygen therapy (Chronic) GERD (gastroesophageal reflux disease) (Chronic) Left anterior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 (Chronic) Right bundle branch block (RBBB) (Chronic) Pulmonary hypertension (Chronic) JUSTINA on CPAP (Chronic) Pure hypercholesterolemia (Chronic) Essential hypertension (Chronic) Paroxysmal atrial fibrillation (Chronic) Bleeding ulcer (Acute) Poliomyelitis (Acute) Surgical History History of bilateral cataract extraction (Resolved) History of tonsillectomy and adenoidectomy (Resolved) History of total knee replacement (Resolved) History of total right hip replacement (Resolved) Family History Mother CVA (cerebral vascular accident) Diabetes Cancer Bladder Grandmother Heart disease Social History Smoking Status: Never smoker alcohol intake: never substance use type: does not use ROS Const Const: Positive for fatigue (increased); negative for weakness, weight gain, weight loss, frequent falls or excessive sweating Eyes Eyes: Negative for change in vision, blurry vision or transient loss of vision ENT ENT: Positive for balance problems (ambulates with a cane); negative for dizziness Cardio Chest Pain: No Palpitations: No Edema: None (patient wears compression stockings) Muscle aches with walking: None Resp Respiratory: Positive for Cough (occasional dry cough); negative for SOB with activity or SOB at rest Additional Details: Patient wears continuous oxygen @ 3-3.5L NC, BIPAP Follows with Dr. Thelma Singh, customer service correspondence clerk @ [facility] GI: Negative vomiting or vomiting blood/hematemesis : Positive for hematuria (patient reports started slightly yesterday, continues today) Musc Musc: Positive for balance problems (ambulates with a cane); negative for muscle aches/ myalgia (Lt hip issues, currently in PT), muscle weakness or joint pain Skin Skin: Negative non-healing lesions or rash Neuro Neuro: Negative for weakness, blurry vision, dizziness, lightheadedness, frequent falls or orthostatic symptoms Pedro Pablo Hematologic/Lymphatic: Negative for easy bleeding Endo Endo: Positive for fatigue (increased); negative for excessive sweating Psych Psych: Negative for anxiety or depression Allergy Allergy/Immunology: Negative for hives, Negative for rash Cardiology Exam Const Appearance: cooperative, healthy appearing, comfortable, well developed and well groomed Nutritional Appearance: overweight Orientation: alert, awake and oriented x3 Head Head: normal to inspection, normocephalic and atraumatic Ears: hearing grossly normal bilaterally Nose: external nose normal Face and Sinus: face symmetric Mouth: oral mucosae normal Eyes Eyelids: eyelids normal Conjunctivae: conjunctivae normal Pupils: PERRL EOM: EOM intact bilaterally Neck Neck: normal visual inspection Carotids: normal carotid upstroke Chest Chest inspection: normal inspection of the chest Auscultation: Bilateral: Expiratory Wheezes Cardio Palpation: normal PMI Rhythm: irregular rhythm Heart sounds: S1 normal and S2 normal GI GI: normal to inspection, bowel sounds present and soft Neuro General: alert, oriented x3 and moves all extremities Skin Skin: no rashes or lesions noted Extremities Pulses: Normal: Right Radial Pulse, Left Radial Pulse Lower Extremity Edema: +3: Bilateral Psych Psychological: normal affect Assessment AND Plan 1. Paroxysmal atrial fibrillation I48.0 Plan She remains in atrial fibrillation at this time. She will continue medical management. As her rate has been elevated she has not required rate limiting medications. She is on anticoagulant therapy. She will have her INR evaluated. She will also undergo further evaluation with a pharmacologic stress nuclear imaging study, which she states was previously discussed with her. This will be to screen for any obvious CAD and myocardial ischemia based upon her symptoms and/or other objective findings that would be prudent no as she undergoes her cardiovascular evaluation. Hopefully over time she can be considered for synchronized biphasic DC cardioversion once he has had adequate anticoagulation therapy. Orders Orders: 2. JUSTINA on CPAP G47.33; Z99.89 Plan She does have obstructive sleep apnea. She is followed by pulmonology. This may be contributing to her elevated pulmonary pressures and her right atrial size right ventricular enlargement. It may also potentially contribute to her atrial dysrhythmia. 3. Pulmonary HTN I27.20 Plan Again she has evidence of pulmonary hypertension. She will need to continue her underlying pulmonary care. She will undergo a cardiovascular evaluation as noted above. 4. Essential hypertension I10 Plan She also has essential hypertension. Again she will need to continue medical management. Orders Orders: 5. Pure hypercholesterolemia E78.00 Plan She is on lipid-lowering therapy. She states she follows with her primary care physician for this. 6. Edema R60.9 Plan She does have marked bilateral lower extremity peripheral pitting edema which appears to be chronic. She does state since being on adjusted dose medication she has lost approximately 10 pounds which she believes is basically all fluid as she notes her legs and feet or not as heavy now. Her lower extremity edema may be related to her pulmonary hypertension and her right sided involvement. At the same time there may be contribution from lack of atrial kick from her atrial fibrillation. Also she may have long standing lower extremity venous insufficiency or potentially lymphatic insufficiency. She will need continued diuretic therapy. She states her current diuretic therapy has resulted in a 10 pound weight loss this will be continued. However she may need adjustment of her diuretics over time. She will continue her cardiovascular evaluation and care. Plan Detail Other Orders Orders: Additional Comments The above was discussed with the patient and her daughter. They are agreeable to this approach. Thank you for allowing me to participate in the care of your patient. Please don't hesitate to call if any issues arise. This note was generated using a voice recognition system and there may be incorrect words, spelling or punctuation that were not noted when reviewing the office note prior to saving. Follow Up 6 Weeks (PFM) Coding Level of Care Code Off vis,new,level 4 Diagnoses Paroxysmal atrial fibrillation I48.0 JUSTINA on CPAP G47.33; Z99.89 Pulmonary HTN I27.20 Essential hypertension I10 Pure hypercholesterolemia E78.00 Edema R60.9 Coding Level of Care Code Off vis,new,level 4 Diagnoses Paroxysmal atrial fibrillation I48.0 JUSTINA on CPAP G47.33; Z99.89 Pulmonary HTN I27.20 Essential hypertension I10 Pure hypercholesterolemia E78.00 Edema R60.9 Supplemental Info Supplemental Information Diagnostics Electrocardiogram 10/03/18 10/03/18 1148 <Electronically signed by Albaro Neville MD> Date Albaro Neville MD Cosigner Signature: Date (if applicable) CC: Jose Miguel Chairez MD; Thelma Singh MD 12 LEAD EKG PERFORMED Observed: 10/03/2018 Status: F Source: [place] [facility] 10:22 AM [facility] [place] [place] REPOSITORY [facility] [address] [place] [address] 12 Lead EKG performed by [facility] 10/03/18 102 MR#: [id number] Acct: [id number] Name: VENICE CROFT Rep #: [id number] : 1945 73 From: Albaro Neville MD Attending Dr: Albaro Neville MD Status: DEP AMB Ordering Dr: Albaro Neville MD Date: 10/03/18 Location: [facility] [place] Sex: F C Admitted: [facility]/12 Lead EKG performed by [facility] ECG Report Interpretation Atrial flutter-fibrillation - occasional ectopic ventricular beat Left axis deviationRight bundle branch blockLeft anterior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Anterior NH, age undetermined, cannot be excludedABNORMAL Electronically signed on 10/03/2018 at 18:19 by Albaro Neville Software Version [id number] 10/03/18 1820 Date Albaro Neville MD CC: Jose Miguel Chairez MD Date Dictated: 10/03/18 102 Date Transcribed: 10/03/18 102 Meat Cooler: PM Signed PROGRESS Observed: 09/30/2018 Status: COMPLETED Source: [place] 9:48 AM [facility] REPOSITORY HNO ID: [id number] Author: Thelma Singh Service: (none) Author Type: Physician Type: Progress Notes Filed: 09/30/2018 9:58 AM Note Text: [facility] [place], 09/03/2018 INTERVAL HISTORY: Patient is noticing increasing shortness of breath limiting activities of daily living. There is no increase in cough and there is no purulent sputum, hemoptysis or pleuritic chest pain. She has also described some increase in lower extremity edema. She claims consistent compliance with prescribed PAP therapy. Little if any energy. ROS: Reviewed with patient, confirmed as documented by Yenifer Myers LPN. TO PMH, FAMH, SOCH: Updated with patient today. Allergies reviewed and updated, and medications reconciled today. Immunization History Administered Date(s) Administered Influenza Seasonal - High Dose - Age 65+ 06/14/2015 06/13/2016 08/01/2017 07/12/2018 Influenza Seasonal Inj Age 3+ 07/02/2014 Influenza Vaccine, Split-Non Spec 07/16/2006 07/27/2008 07/12/2009 06/23/2010 08/12/2012 08/07/2013 Pneumococcal-13 Vac Conjugate 10/15/2014 Pneumovax 07/27/2008 Tetanus/Diphtheria Unspec 11/24/2008 PHYSICAL EXAMINATION: BP 118/68 Pulse 76 Resp 20 Wt 301 lb (136.5kg) SpO2 91% Gen: No acute distress. Cooperative with examination. Morbidly obese. ENT: Sclerae clear. Nares clear. Oral hygeine/dentition good. Pharynx clear, temperature uvula not visible. No halitosis. Resp: No stridor, accessory respiratory muscle use, supra- sternal or intercostal retractions. No crackles, wheezes, rubs. CV: Regular rythm. Heart tones normal. Unable to visualize JVP, HJR. No carotid bruit. Radial pulses normal. Abd: Obese, pendulous, not distended. MSK: No kyphoscoliosis. Ext: Warm and well perfused. No clubbing, cyanosis2+ pitting edema both lower legs. No sclerodactyly, Raynaud's. Skin: Color normal. Texture normal. No rash. Lymph: Unable to appreciate adenopathy in neck, supra-clavicular fossae. Endo: Unable to appreciate goiter. No exophthalmos onycholysis. Neuro: Mental status normal. Affect normal. Muscle strength symmetrical. No tremor. IMPRESSION AND RECOMMENDATIONS: Pulmonary hypertension due to obstructive sleep apnea and obesity-hypoventilation syndrome. 1. The BiPAP compliance report shows good control of obstructive sleep apnea, with apnea hypopnea index of < 1 (normal < 5). - But record also shows leak, which could affect comfort. Change mask and ask DME Supplier to re-run compliance report. 2. Increasing edema of legs, and weight increase may reflect change in pulmonary artery pressure and heart function. - Repeat echocardiogram to re-assess. - Further recommendations to follow this result. Thelma Singh MD, [facility] [address] [place] [address] P: [phone] F: [phone] [email or web address] PROTIME Collected: 09/27/2018 Status: F Source: [place] 11:36 AM [facility] REPOSITORY TYPE CODE TESTS RESULT OUT OF RANGE REFERENCE UNITS LAB PSEC 9.7-13.0 sec High PT Sec 26.8 LAB INR 0.9-1.3 High PT INR 2.7 Result Comment: Vitamin K Antagonist (VKA) Therapeutic Range: INR 2 to 3 (Target INR of 2.5) Note: For patients treated with VKA drugs, such as warfarin, the [employer] 2012 Guideline recommends a therapeutic INR range of 2 to 3 (target INR of 2.5). This recommendation includes high-risk patients with antiphospholipid syndrome with previous arterial or venous thromboembolism, current-generation mechanical or bioprosthetic aortic heart valve replacement. Note: Patients with mechanical aortic valve replacement and additional risk factors for thromboembolic events (atrial fibrillation, previous thromboembolism, LV dysfunction, hypercoagulable conditions) or an older generation mechanical AVR (i.e., ball in-Cage) or any mechanical MVR should have a INR therapeutic range of 2.5 to 3.5 (target INR of 3). Viola GH, et al. Chest 2012, 141:7S-47S Leo CORNEJO et al. [facility] 2017, 70: 252-289 Performed By: #### PT #### [facility] [employer] [address] [place], [place] [address] PROGRESS Observed: 09/24/2018 Status: COMPLETED Source: [place] 2:11 PM [facility] REPOSITORY HNO ID: [id number] Author: Sofiya (Pt) Lucia Service: (none) Author Type: Physical Therapist Type: Progress Notes Filed: 09/26/2018 9:13 AM Note Text: Episode Visit Count: 16 (This is the patient's 2nd visit in 2019. The prior 14 visits were in 2018) Therapist That Will Oversee The Plan Of Care: Sofiya Myers PT Start of Care Date: 04/12/18 Onset Date: 02/21/18 Plan of Care Certification Date: 09/24/18 Patient Identified by Name and Date of : Yes REHABILITATION AND SPORTS THERAPY PHYSICAL THERAPY RE-EVALUATION PLAN OF CARE UPDATE: Assessment: Venice Croft exhibits difficulty with tightness and heaviness in her B LEs due to lymphedma. She continues to be limited with rising from a chair and walking in the community. She is progressing slower than expected towards her therapy goals as demonstrated by: documented subjective information on progress. She will benefit from continued skilled therapy requiring manual therapy, ther ex, and education in order to improve skin texture and lymphatic flow in her B LEs. Functional gains: None at this time Goals updated on 09/24/2018. [place] in home exercise program. Patient will decrease by 1 cm at the following B leg circumferences: Widest aspect of calf, 40cm, and 60cm to help decrease risk of infection Patient will have softer skin on the medial lobes by her knee. Patient will be report daily application of moisturizer to legs to help improve the moisture of her legs. Patient will report decreased tightness/heaviness in her legs to at least 5/10 to demonstrate MCID. Planned Interventions, Frequency, and Duration: 1x/week, 8 weeks Total Number of Visits Planned: 24 Patient to be seen for Therapeutic exercise;Manual therapy;Patient/Family/Caregiver Education;Self-detention management;General Conditioning;Neuromuscular re-education PLAN FOR NEXT VISIT: See how she responding to MLD and continue SUBJECTIVE: Patient finds she is more sleepy since starting warfarin. Last night after doing compression pumps her legs seemed good but this AM her legs seemed tighter. As the day progressess her legs get tighter. Baby oil applied every time gets out of the shower, but she doen't shower everyday. Pain Score: 7/10 Pain Location: Leg - Right;Leg - Left Description: Tightness (heaviness) Frequency: Continuous Post Treatment Pain Score: 5/10 Pain Location: Leg - Right;Leg - Left Post Treatment Pain Description: Tightness (heaviness) OBJECTIVE MEASURES WITH LEVEL OF FUNCTION: Lymphedema Skin: Skin Comments Skin Comments:: Little veins seen through feet. Pitting in tops of both feet and lower aspect of ankles. Color=brown/purplish coloring on lower aspect of leg. Sausage looking toes. Medial lobes with hard fibrotic skin. Lower Extremity Circumferential Measurements R 40 cm above malleolus (cm): 64 R 60 cm above malleolus (cm): 71 L 40 cm above malleolus (cm): 67 L 60 cm above malleolus (cm): 71 Location RLE 09/24/2018 LLE 09/24/2018 Smallest Aspect of Ankle (B) 32.0 29 Widest Aspect of Calf (C) 53 54 Knee Crease 67 67 TREATMENT: Manual Therapy: 3: MLD: Short Neck, patient performed 5 diaphramatic breathing breaths, B Grions, and B LE Skilled Intervention: Manual skills to improve joint mobility, ROM, and decrease pain. Utilized anatomy knowledge of the therapist, and assessment of patient's response to intervention. Self-Residential Management: 1: Recommended she apply Eucerin, Aveeno, or another fragrance free lotion to her legs daily to help with the dry flaking skin around the brownish/purplish color on her legs 2: Talked about exploring a custom shanell style copression garment with her custom knee highs or getting custom thigh highs to better continue the swelling in her legs 3: Suggested she call her compression pump company ([employer]) to have them perform a pressure check on her pump. 4: Showed and demonstrated how to don her compression stocking by turning inside out. Skilled Intervention: Skilled judgment in the selection of proper modification for activity of daily living/home management based on clinical presentation, deficits, and needs. Billing: [facility]: Re-Evaluation ([id number]) Manual Therapy (12710): 1:1 time: 22 minutes (1 unit: 8-22 mins) Educ Home Mgmt (38955): 1:1 time: 8 minutes (1 unit: 8-22 mins) Total time: 45 minutes Sofiya Myers PT CNTHERAPY Observed: 09/24/2018 Status: COMPLETED Source: [place] 2:00 PM [facility] REPOSITORY OT/PT/Speech Visit (PTWS) VENICE CROFT ([id number]) 1945 F Date Time Provider Department 09/24/18 2:00 PM SOFIYA MYERS (PT) PTWS Date Time Provider Department Center 09/24/2018 2:00 PM [id number], DIANA (PT)PTWS [facility] Reason for Visit: PT Re-eval [891] Primary Visit Diagnosis:Lymphedema [I89.0] Other Visit Diagnoses:Pain in the groin, left [R10.32] Pain in left hip [M25.552] Allergies As of Date: 09/24/2018 Noted Allergy Reaction DANIEL INHIBITORS 06/15/2005 7 - Swelling Comments: Angioedema. Lips. LIPITOR (ATORVASTATIN CALCIUM) 06/15/2005 Comments: Muscle aches PANAFIL ([id number]-JNPZ-[id number]*08/18/2005 5 - Intolerance Comments: ? AMPICILLIN 06/15/2005 2 - Rash Comments: Bilateral arms. DARVOCET-N 100 (PROPOXYPHENE N-AC*01/31/2010 1 - Mental Status Change 14 - Other: See Comments Comments: Dizziness. PERCOCET (OXYCODONE-ACETAMINOPHEN)01/31/2010 1 - Mental Status Change Date Reviewed: 09/03/2018 Reviewed by: Thelma Singh - Fully Assessed Prescriptions as of 09/24/2018 Sig: WARFARIN 4 MG TABLET Take 1 tablet by mouth once d* SPIRONOLACTONE 25 MG TABLET Take 1 tablet by mouth once d* SIMVASTATIN 20 MG TABLET TAKE 0.5 TABLETS BY MOUTH MATTHEW* CETIRIZINE 10 MG TABLET Take 1 tablet by mouth once d* COMPOUNDED PRESCRIPTION KNEE HIGH COMPRESSION STOCKIN* HYDROCHLOROTHIAZIDE 25 MG TAB* TAKE 0.5 TABLETS BY MOUTH ONC* FLUTICASONE 50 MCG/ACTUATION * Use 2 Sprays in each nostril * MUCINEX DM ORAL Take by mouth twice daily. LANSOPRAZOLE 15 MG CAPSULE,DE* Take 2 capsules by mouth ever* ASPIRIN 81 MG TABLET,DELAYED * Take 1 tablet by mouth once d* CPAP Decrease the Bilevel setting * COMPOUNDED PRESCRIPTION Home Oxygen @ 2L-4L Nasal Can* CHOLECALCIFEROL (VITAMIN D3) * Take one(1) tablet two(2) corinne* Progress Notes: Sofiya Myers PT 09/26/2018 9:13 AM Addendum Episode Visit Count: 16 (This is the patient's 2nd visit in 2019. The prior 14 visits were in 2018) Therapist That Will Oversee The Plan Of Care: Sofiya Myers PT Start of Care Date: 04/12/18 Onset Date: 02/21/18 Plan of Care Certification Date: 09/24/18 Patient Identified by Name and Date of : Yes REHABILITATION AND SPORTS THERAPY PHYSICAL THERAPY RE-EVALUATION PLAN OF CARE UPDATE: Assessment: [place] Croft exhibits difficulty with tightness and heaviness in her B LEs due to lymphedma. She continues to be limited with rising from a chair and walking in the community. She is progressing slower than expected towards her therapy goals as demonstrated by: documented subjective information on progress. She will benefit from continued skilled therapy requiring manual therapy, ther ex, and education in order to improve skin texture and lymphatic flow in her B LEs. Functional gains: None at this time Goals updated on 09/24/2018. [place] in home exercise program. Patient will decrease by 1 cm at the following B leg circumferences: Widest aspect of calf, 40cm, and 60cm to help decrease risk of infection Patient will have softer skin on the medial lobes by her knee. Patient will be report daily application of moisturizer to legs to help improve the moisture of her legs. Patient will report decreased tightness/heaviness in her legs to at least 5/10 to demonstrate MCID. Planned Interventions, Frequency, and Duration: 1x/week, 8 weeks Total Number of Visits Planned: 24 Patient to be seen for Therapeutic exercise;Manual therapy;Patient/Family/Caregiver Education;Self-detention management;General Conditioning;Neuromuscular re-education PLAN FOR NEXT VISIT: See how she responding to MLD and continue SUBJECTIVE: Patient finds she is more sleepy since starting warfarin. Last night after doing compression pumps her legs seemed good but this AM her legs seemed tighter. As the day progressess her legs get tighter. Baby oil applied every time gets out of the shower, but she doen't shower everyday. Pain Score: 7/10 Pain Location: Leg - Right;Leg - Left Description: Tightness (heaviness) Frequency: Continuous Post Treatment Pain Score: 5/10 Pain Location: Leg - Right;Leg - Left Post Treatment Pain Description: Tightness (heaviness) OBJECTIVE MEASURES WITH LEVEL OF FUNCTION: Lymphedema Skin: Skin Comments Skin Comments:: Little veins seen through feet. Pitting in tops of both feet and lower aspect of ankles. Color=brown/purplish coloring on lower aspect of leg. Sausage looking toes. Medial lobes with hard fibrotic skin. Lower Extremity Circumferential Measurements R 40 cm above malleolus (cm): 64 R 60 cm above malleolus (cm): 71 L 40 cm above malleolus (cm): 67 L 60 cm above malleolus (cm): 71 Location RLE 09/24/2018 LLE 09/24/2018 Smallest Aspect of Ankle (B) 32.0 29 Widest Aspect of Calf (C) 53 54 Knee Crease 67 67 TREATMENT: Manual Therapy: 3: MLD: Short Neck, patient performed 5 diaphramatic breathing breaths, B Grions, and B LE Skilled Intervention: Manual skills to improve joint mobility, ROM, and decrease pain. Utilized anatomy knowledge of the therapist, and assessment of patient's response to intervention. Self-Residential Management: 1: Recommended she apply Eucerin, Aveeno, or another fragrance free lotion to her legs daily to help with the dry flaking skin around the brownish/purplish color on her legs 2: Talked about exploring a custom shanell style copression garment with her custom knee highs or getting custom thigh highs to better continue the swelling in her legs 3: Suggested she call her compression pump company ([employer]) to have them perform a pressure check on her pump. 4: Showed and demonstrated how to don her compression stocking by turning inside out. Skilled Intervention: Skilled judgment in the selection of proper modification for activity of daily living/home management based on clinical presentation, deficits, and needs. Billing: [facility]: Re-Evaluation ([id number]) Manual Therapy ([id number]): 1:1 time: 22 minutes (1 unit: 8-22 mins) Educ Home Mgmt (63810): 1:1 time: 8 minutes (1 unit: 8-22 mins) Total time: 45 minutes Sofiya Myers PT Previous Version PROTIME Collected: 09/24/2018 Status: F Source: [place] 1:10 PM [facility] REPOSITORY TYPE CODE TESTS RESULT OUT OF RANGE REFERENCE UNITS LAB PSEC 9.7-13.0 sec High PT Sec 26.8 LAB INR 0.9-1.3 High PT INR 2.7 Result Comment: Vitamin K Antagonist (VKA) Therapeutic Range: INR 2 to 3 (Target INR of 2.5) Note: For patients treated with VKA drugs, such as warfarin, the [employer] 2012 Guideline recommends a therapeutic INR range of 2 to 3 (target INR of 2.5). This recommendation includes high-risk patients with antiphospholipid syndrome with previous arterial or venous thromboembolism, current-generation mechanical or bioprosthetic aortic heart valve replacement. Note: Patients with mechanical aortic valve replacement and additional risk factors for thromboembolic events (atrial fibrillation, previous thromboembolism, LV dysfunction, hypercoagulable conditions) or an older generation mechanical AVR (i.e., ball in-Cage) or any mechanical MVR should have a INR therapeutic range of 2.5 to 3.5 (target INR of 3). Viola GH, et al. Chest 2012, 141:7S-47S Leo RA, et al. J[facility] 2017, 70: 252-289 Performed By: #### PT #### [facility] [employer] [address] [place], [place] [address] SCREENING MAMM (CAD), Observed: 09/20/2018 Status: F Source: [place] 11:52 AM [facility] [place] [place] REPOSITORY [facility] Imaging Services [address] [place] [address] SCREENING MAMM (CAD), BILAT MR#: [id number] Acct: [id number] Name: VENICE CROFT Rep #: [id number] : 1945 F 73 From: Jim Watters MD PCP: Jose Miguel Chairez MD Status: [facility] Study: SCREENING MAMM (CAD), BILAT Date of Exam: 09/20/18 Exam# [id number] Ordering Dr: Jose Miguel Chairez MD MAMMOGRAPHY - BILATERAL SCREENING REASON FOR EXAM: Female, 73 years old. Routine annual screening examination. PERTINENT HISTORY: Non-contributory. Remote right stereotactic breast biopsy. TECHNIQUE: Digital bilateral breast debby (3D mammographic acquisition) in the CC and MLO projections. 2-D mediolateral oblique (MLO) and craniocaudad (CC) views of both breasts were obtained. CAD: Full Field Digital Mammography with Computer Added Detection was performed. COMPARISON: Comparison is made with prior study dated August 24, 2017 and August 21, 2016. FINDINGS: Breast Composition: The breasts are almost entirely fatty. There are no dominant masses or suspicious calcifications. Once again, a tissue clip marker is seen in the deep retroareolar region of the right breast. No other significant abnormalities are identified. There has been no significant change since the prior study. BI/SCREENING MAMM (CAD), BILAT IMPRESSION: Stable bilateral screening mammogram. Yearly follow-up mammogram recommended. (A) ASSESSMENT CATEGORY: BIRADS Category 2: Benign. A letter regarding these results will be sent to the patient by the facility within 30 days. Approximately 10% of breast cancers are not detected by mammography. A normal mammogram should not delay biopsy of a clinically suspicious abnormality. [id number] Electronically Signed: Jim Watters MD at 14:14 EST Tel [phone], Service support , CC: Jose Miguel Chairez MD [employer]: Signed PROGRESS Observed: 09/20/2018 Status: COMPLETED Source: [place] 11:01 AM [facility] REPOSITORY HNO ID: [id number] Author: Sofiya (Pt) Lucia Service: (none) Author Type: Physical Therapist Type: Progress Notes Filed: 09/20/2018 11:11 AM Note Text: Episode Visit Count: 15 Therapist That Will Oversee The Plan Of Care: Sofiya Myers PT Start of Care Date: 04/12/18 Onset Date: 02/21/18 Plan of Care Certification Date: 08/13/18 Patient Identified by Name and Date of : Yes REHABILITATION AND SPORTS THERAPY PHYSICAL THERAPY PROGRESS REPORT PLAN OF CARE UPDATE: Assessment: Venice Croft exhibits improvements in L groin pain. She continues to be limited with walking without a cane and physical activities. She is progressing slower than as expected towards her therapy goals as demonstrated by: home exercise program compliance, pain levels, documented subjective information on progress, documented objective information regarding gait, overall function and patient reported outcome measures and appointment compliance. Patient has reached maximum benefit working on her L groin pain. Recommended she see an donor specialist due to her plateauing. Patient does seem to have increased hardness of the skin of her LE and is not finding her legs are softening after using her compression pump. Recommending she be re-evaluated for her lymphedema. Message sent to Dr. Ramos to place an order in [facility]. She will benefit from continued skilled therapy requiring re-evaluation of her legs for CDT in order to improve skin texture and decrease risk of skin infection. Functional gains: Increased independence with HEP Decreased intensity of pain Goals updated on 09/19/2018. [place] in home exercise program.--MET for current HEP Patient will decrease pain rating by 2 points to meet minimal clinical important difference for numeric pain rating scale. (Goal: 2/10 with sitting and 4/10 with walking--MET for both Perform sleeping in bed without pain.--MET Demonstrate improvement on functional score: Patient will improve his/her AM-PAC T-scale score by 4 points to indicate a Minimal Clinical Important Difference. (Goal: 49.55)--MET Walking without an assistive device.--Not MET Patient with improve 5x STS to 20 sec to show MCID --MET Patient will be able to get into and out of a car without pain.--Progressing Goal Added 08/13/18: Patient will report easier to stand on L leg to lift R leg to place on bench in shower.--NT G CODE REPORTING Based on clinical assessment and the score on the AM-PAC Scale Score Assessment Tool, the G code and corresponding severity modifiers are documented below. Evaluation: 04/12/2018 Current Status: Mobility: Walking and Moving Around: G8978 CK 40-59% impaired Goal Status: Mobility: Walking and Moving Around: G8979 CK 40-59% Impaired Progress Report: 05/14/2018 Current Status: Mobility: Walking and Moving Around: G8978 CK 40-59% impaired Goal Status: Mobility: Walking and Moving Around: G8979 CK 40-59% impaired Progress Report: 06/11/2018 Current Status: Mobility: Walking and Moving Around: G8978 CK 40-59% impaired Goal Status: Mobility: Walking and Moving Around: G8979 CK 40-59% impaired Progress Report: 07/16/2018 Current Status: Mobility: Walking and Moving Around: G8978 40-59% impaired Goal Status: Mobility: Walking and Moving Around: G8979 20-39% impaired Progress Report: 08/13/2018 Current Status: Mobility: Walking and Moving Around: G8978 20-39% impaired Goal Status: Mobility: Walking and Moving Around: G8979 20-39% impaired Progress Report: 09/19/2018 Current Status: Mobility: Walking and Moving Around: [address] [place] [address] 20-39% impaired Goal Status: Mobility: Walking and Moving Around: G8979 20-39% impaired Planned Interventions, Frequency, and Duration: 1 visit, 1 week Total Number of Visits Planned: 16 Patient to be seen for Therapeutic exercise;Manual therapy;Patient/Family/Caregiver Education;Self-detention management;General Conditioning;Neuromuscular re-education PLAN FOR NEXT VISIT: Re-eval d/t new order coming from Dr. Chairez to help with heaviness/congested nature of her legs and try CDT. Create a new POC. SUBJECTIVE: Patient had her echocardiogram and found to have afib and now taking warfarin. The heaviness in legs has let up due to starting the new medication. Has a pump that she uses daily but finds that the pump is not helping to soften her legs like it used to. Patient doesn't feel like she is experiencing changes in her L groin; starting to plateau. Patient did something to light up her L groin and was bothered for a few days and now back to her normal 4-5/10 pain. Patient has to think about how she gets into and out of car without pain. Patient fearful to stand on her L leg in the shower, so she has just continued to sit on her marble bench to shower. Talked to patient about starting MLD on her legs to see if that could help with the congestion in her legs. Message sent to Dr. Chairez for an order. Pain Score: (Sittin/10 Walking 4-5/10) Pain Location: Groin - Left Description: Dull;Aching Frequency: Intermittent OBJECTIVE MEASURES WITH LEVEL OF FUNCTION: Functional Performance Test Results 5 Times Sit to Stand Test : 20 sec (lowest seating on mat table. No groin pain.) TREATMENT: Therapeutic Exercise: 10: Seated Recumbent Stepper Seat 16, level 1.5, arms 5, 6 minutes. 16: STS from lowest first mat table x5 Patient instructed to continue with her HEP. Patient able to verbalize her HEP. Skilled Intervention: Patient was educated in proper exercise technique and purpose for exercises. Skilled judgment was provided in selection of appropriate interventions. Manual Therapy: 2: L leg traction with inferior glide (to help improve hip ABD) with intermittent pulling and oscillaltion 12 minutes. Talked to patient about having PT evaluate legs and teat via using concepts of CDT. Patient open to the idea. Message sent to Dr. Chairez to place an order. Skilled Intervention: Manual skills to improve joint mobility, ROM, and decrease pain. Utilized anatomy knowledge of the therapist, and assessment of patient's response to intervention. Billing: [facility]: Therapeutic Exercise (88948): 1:1 time: 18 minutes (1 unit: 8-22 mins) Manual Therapy (05321): 1:1 time: 23 minutes (2 units: 23- 37 mins) Total time: 41 minutes Sofiya Myers PT CNTHERAPY Observed: 09/19/2018 Status: COMPLETED Source: [place] 10:00 AM [facility] REPOSITORY OT/PT/Speech Visit (PTWS) VENICE CROFT ([id number]) 1945 F Date Time Provider Department 09/19/18 10:00 AM SOFIYA MYERS (PT) PTWS Date Time Provider Department Center 09/19/2018 10:00 AM [id number], DIANA (PT[facility] Reason for Visit: PT Progress Note [0276] Primary Visit Diagnosis:Pain in left hip [M25.552] Other Visit Diagnosis:Pain in the groin, left [R10.32] Allergies As of Date: 09/19/2018 Noted Allergy Reaction DANIEL INHIBITORS 06/15/2005 7 - Swelling Comments: Angioedema. Lips. LIPITOR (ATORVASTATIN CALCIUM) 06/15/2005 Comments: Muscle aches PANAFIL ([id number]*08/18/2005 5 - Intolerance Comments: ? AMPICILLIN 06/15/2005 2 - Rash Comments: Bilateral arms. DARVOCET-N 100 (PROPOXYPHENE N-AC*01/31/2010 1 - Mental Status Change 14 - Other: See Comments Comments: Dizziness. PERCOCET (OXYCODONE-ACETAMINOPHEN)01/31/2010 1 - Mental Status Change Date Reviewed: 09/03/2018 Reviewed by: Thelma Singh - Fully Assessed Prescriptions as of 09/19/2018 Sig: WARFARIN 4 MG TABLET Take 1 tablet by mouth once d* SPIRONOLACTONE 25 MG TABLET Take 1 tablet by mouth once d* SIMVASTATIN 20 MG TABLET TAKE 0.5 TABLETS BY MOUTH MATTHEW* CETIRIZINE 10 MG TABLET Take 1 tablet by mouth once d* COMPOUNDED PRESCRIPTION KNEE HIGH COMPRESSION STOCKIN* HYDROCHLOROTHIAZIDE 25 MG TAB* TAKE 0.5 TABLETS BY MOUTH ONC* FLUTICASONE 50 MCG/ACTUATION * Use 2 Sprays in each nostril * MUCINEX DM ORAL Take by mouth twice daily. LANSOPRAZOLE 15 MG CAPSULE,DE* Take 2 capsules by mouth ever* ASPIRIN 81 MG TABLET,DELAYED * Take 1 tablet by mouth once d* CPAP Decrease the Bilevel setting * COMPOUNDED PRESCRIPTION Home Oxygen @ 2L-4L Nasal Can* CHOLECALCIFEROL (VITAMIN D3) * Take one(1) tablet two(2) corinne* Progress Notes: Sofiya Myers PT 09/20/2018 11:11 AM Signed Episode Visit Count: 15 Therapist That Will Oversee The Plan Of Care: Sofiya Myers PT Start of Care Date: 04/12/18 Onset Date: 02/21/18 Plan of Care Certification Date: 08/13/18 Patient Identified by Name and Date of : Yes RE[facility]AB[facility]ORTS [facility]ER[facility]Y PHYSICAL THERAPY PROGRESS REPORT PLAN OF CARE UPDATE: Assessment: Venice Croft exhibits improvements in L groin pain. She continues to be limited with walking without a cane and physical activities. She is progressing slower than as expected towards her therapy goals as demonstrated by: home exercise program compliance, pain levels, documented subjective information on progress, documented objective information regarding gait, overall function and patient reported outcome measures and appointment compliance. Patient has reached maximum benefit working on her L groin pain. Recommended she see an donor specialist due to her plateauing. Patient does seem to have increased hardness of the skin of her LE and is not finding her legs are softening after using her compression pump. Recommending she be re-evaluated for her lymphedema. Message sent to Dr. Ramos to place an order in [facility]. She will benefit from continued skilled therapy requiring re-evaluation of her legs for CDT in order to improve skin texture and decrease risk of skin infection. Functional gains: Increased independence with HEP Decreased intensity of pain Goals updated on 09/19/2018. [place] in home exercise program.--MET for current HEP Patient will decrease pain rating by 2 points to meet minimal clinical important difference for numeric pain rating scale. (Goal: 2/10 with sitting and 4/10 with walking--MET for both Perform sleeping in bed without pain.--MET Demonstrate improvement on functional score: Patient will improve his/her AM-PAC T-scale score by 4 points to indicate a Minimal Clinical Important Difference. (Goal: 49.55)--MET Walking without an assistive device.--Not MET Patient with improve 5x STS to 20 sec to show MCID --MET Patient will be able to get into and out of a car without pain.--Progressing Goal Added 08/13/18: Patient will report easier to stand on L leg to lift R leg to place on bench in shower.--NT G CODE REPORTING Based on clinical assessment and the score on the AM-PAC Scale Score Assessment Tool, the G code and corresponding severity modifiers are documented below. Evaluation: 04/12/2018 Current Status: Mobility: Walking and Moving Around: G8978 CK 40-59% impaired Goal Status: Mobility: Walking and Moving Around: G8979 CK 40-59% Impaired Progress Report: 05/14/2018 Current Status: Mobility: Walking and Moving Around: G8978 CK 40-59% impaired Goal Status: Mobility: Walking and Moving Around: G8979 CK 40-59% impaired Progress Report: 06/11/2018 Current Status: Mobility: Walking and Moving Around: G8978 CK 40-59% impaired Goal Status: Mobility: Walking and Moving Around: G8979 CK 40-59% impaired Progress Report: 07/16/2018 Current Status: Mobility: Walking and Moving Around: G8978 40-59% impaired Goal Status: Mobility: Walking and Moving Around: G8979 20-39% impaired Progress Report: 08/13/2018 Current Status: Mobility: Walking and Moving Around: G8978 20-39% impaired Goal Status: Mobility: Walking and Moving Around: G8979 20-39% impaired Progress Report: 09/19/2018 Current Status: Mobility: Walking and Moving Around: G8978 20-39% impaired Goal Status: Mobility: Walking and Moving Around: G8979 20-39% impaired Planned Interventions, Frequency, and Duration: 1 visit, 1 week Total Number of Visits Planned: 16 Patient to be seen for Therapeutic exercise;Manual therapy;Patient/Family/Caregiver Education;Self-detention management;General Conditioning;Neuromuscular re-education PLAN FOR NEXT VISIT: Re-eval d/t new order coming from Dr. Chairez to help with heaviness/congested nature of her legs and try CDT. Create a new POC. SUBJECTIVE: Patient had her echocardiogram and found to have afib and now taking warfarin. The heaviness in legs has let up due to starting the new medication. Has a pump that she uses daily but finds that the pump is not helping to soften her legs like it used to. Patient doesn't feel like she is experiencing changes in her L groin; starting to plateau. Patient did something to light up her L groin and was bothered for a few days and now back to her normal 4-5/10 pain. Patient has to think about how she gets into and out of car without pain. Patient fearful to stand on her L leg in the shower, so she has just continued to sit on her marble bench to shower. Talked to patient about starting MLD on her legs to see if that could help with the congestion in her legs. Message sent to Dr. Chairez for an order. Pain Score: (Sittin/10 Walking 4-5/10) Pain Location: Groin - Left Description: Dull;Aching Frequency: Intermittent OBJECTIVE MEASURES WITH LEVEL OF FUNCTION: Functional Performance Test Results 5 Times Sit to Stand Test : 20 sec (lowest seating on mat table. No groin pain.) TREATMENT: Therapeutic Exercise: 10: Seated Recumbent Stepper Seat 16, level 1.5, arms 5, 6 minutes. 16: STS from lowest first mat table x5 Patient instructed to continue with her HEP. Patient able to verbalize her HEP. Skilled Intervention: Patient was educated in proper exercise technique and purpose for exercises. Skilled judgment was provided in selection of appropriate interventions. Manual Therapy: 2: L leg traction with inferior glide (to help improve hip ABD) with intermittent pulling and oscillaltion 12 minutes. Talked to patient about having PT evaluate legs and teat via using concepts of CDT. Patient open to the idea. Message sent to Dr. Chairez to place an order. Skilled Intervention: Manual skills to improve joint mobility, ROM, and decrease pain. Utilized anatomy knowledge of the therapist, and assessment of patient's response to intervention. Billing: [facility]: Therapeutic Exercise ([id number]): 1:1 time: 18 minutes (1 unit: 8-22 mins) Manual Therapy ([id number]): 1:1 time: 23 minutes (2 units: 23- 37 mins) Total time: 41 minutes Sofiya Myers PT PROTIME Collected: 09/19/2018 Status: F Source: [facility] 9:47 AM [facility] REPOSITORY TYPE CODE TESTS RESULT OUT OF RANGE REFERENCE UNITS LAB PSEC 9.7-13.0 sec High PT Sec 21.6 LAB INR 0.9-1.3 High PT INR 2.2 Result Comment: Vitamin K Antagonist (VKA) Therapeutic Range: INR 2 to 3 (Target INR of 2.5) Note: For patients treated with VKA drugs, such as warfarin, the [employer] 2012 Guideline recommends a therapeutic INR range of 2 to 3 (target INR of 2.5). This recommendation includes high-risk patients with antiphospholipid syndrome with previous arterial or venous thromboembolism, current-generation mechanical or bioprosthetic aortic heart valve replacement. Note: Patients with mechanical aortic valve replacement and additional risk factors for thromboembolic events (atrial fibrillation, previous thromboembolism, LV dysfunction, hypercoagulable conditions) or an older generation mechanical AVR (i.e., ball in-Cage) or any mechanical MVR should have a INR therapeutic range of 2.5 to 3.5 (target INR of 3). Viola JENNINGS, et al. Chest 2012, 141:7S-47S Leo RA, et al. [facility] 2017, 70: 252-289 Performed By: #### PT #### [facility] [employer] [address], [place] [address] PROTIME Collected: 09/16/2018 Status: F Source: [place] 9:31 AM [facility] REPOSITORY TYPE CODE TESTS RESULT OUT OF RANGE REFERENCE UNITS LAB PSEC 9.7-13.0 sec High PT Sec 15.6 LAB INR 0.9-1.3 High PT INR 1.5 Result Comment: Vitamin K Antagonist (VKA) Therapeutic Range: INR 2 to 3 (Target INR of 2.5) Note: For patients treated with VKA drugs, such as warfarin, the [employer] 2012 Guideline recommends a therapeutic INR range of 2 to 3 (target INR of 2.5). This recommendation includes high-risk patients with antiphospholipid syndrome with previous arterial or venous thromboembolism, current-generation mechanical or bioprosthetic aortic heart valve replacement. Note: Patients with mechanical aortic valve replacement and additional risk factors for thromboembolic events (atrial fibrillation, previous thromboembolism, LV dysfunction, hypercoagulable conditions) or an older generation mechanical AVR (i.e., ball in-Cage) or any mechanical MVR should have a INR therapeutic range of 2.5 to 3.5 (target INR of 3). Viola GH, et al. Chest 2012, 141:7S-47S Leo CORNEJO et al. [facility] 2017, 70: 252-289 Performed By: #### PT #### [facility] [employer] [address] [place], [place] [address] FECAL OCCULT BLD Collected: 09/12/2018 Status: F Source: [place] TST 8:30 AM [facility] REPOSITORY TYPE CODE TESTS RESULT OUT OF REFERENCE UNITS RANGE LAB IFO Negative Immuno Negative FOB Result Comment: This test was developed and its performance characteristics determined by [facility] [place] ([facility]). It has not been cleared or approved by the FDA. -[facility] is regulated under CLIA as qualified to perform high-complexity testing. This test is used for clinical purposes. It should not be regarded as investigational or for research. Performed By: #### IFOBT #### [facility] [employer] [address] [place], [place] [address] PROGRESS Observed: 09/11/2018 Status: COMPLETED Source: [place] 4:20 PM [facility] REPOSITORY HNO ID: [id number] Author: Devonte Horta Service: (none) Author Type: Physician Type: Progress Notes Filed: 09/11/2018 4:30 PM Note Text: PERTINENT CARDIAC HISTORY PAF HTN HL DM Allergy to DANIEL-I Obesity JUSTINA - CPAP Pulmonary hypertension - mild Edema - stasis RBBB/LAFB ADHERENCE TO GUIDELINES DANIEL-I or ARB for HF with prior LVEF<40 (NQF 0081) - N/A ASA or Plavix for ASHD (NQF 0067) - met Beta keron for ASHD with prior NH or prior LVEF<40 (NQF 0070) - N/A Beta keron for HF with prior LVEF<40 (NQF 0083) - N/A DANIEL-I or ARB for ASHD with DM or prior LVEF<40 (NQF 0066) - allergy Statin therapy for ASHD or FHL or DM - met BMI documented and plan if >25 (NQF 0421) - lifestyle recommendation form Tobacco use screening and referral (NQF 0028) - lifestyle recommendation form Recommendation for whole food, plant based diet - lifestyle recommendation form CLINICAL IMPRESSION/PLAN: Venice Croft has atrial fibrillation of uncertain duration. She was in sinus rhythm in February of the time of her most recent echocardiogram. As she is asymptomatic, duration cannot be defined. I recommend that she begin warfarin. We will discuss this with Dr. Chairez to see if she is a reasonable candidate. She's had no recent falls. Her epistaxis appears to be well controlled. There is no clear indication for aspirin. We will start Aldactone 25 milligrams daily for better control of her peripheral edema. BMP, CBC, INR, stool occult blood and TSH will be obtained today and basic profile will be repeated next week. If she is a good candidate for warfarin, we will initiate at 4 milligrams daily and see her back in a month to discuss possible cardioversion. I've asked her to check vital signs on a regular basis and contact me periodically. Thank you for asking me to see and make recommendations on Venice Croft. This report is available to you in the shared medical record. Written and verbal health teaching given to patient, patient verbalizes understanding and agrees with treatment plan. DIAGNOSIS FOR VISIT: Atrial fibrillation Hypertension HISTORY OF PRESENT ILLNESS Venice Croft is a 73-year-old woman with no prior history of atrial fibrillation, who was referred for follow-up echocardiogram today for status on her pulmonary hypertension, in view of recent increase in edema. She had reported about 20 pound weight gain and increased shortness of breath. She was noted to be in atrial fibrillation at the time of her echocardiogram. She is seen in consultation at the request of primary care She has no previous history of cardiac arrhythmia. She has had no palpitations. She denies chest pain. She has had increasing shortness of breath with activity as well as increased edema. She is on chronic oxygen for her lung disease. She is on CPAP. She has been compliant. She's had no TIAs, amaurosis, claudication, syncope or near syncope. She has never been on anticoagulation. There is no previous history of DVT. she had a GI bleed 20 years ago without recurrence. She has occasional epistaxis but she can control this well with manual pressure. ALLERGIES: ALLERGIES Allergen Reactions - Daniel Inhibitors Swelling Angioedema. Lips. - Lipitor [Atorvastat* Muscle aches - Panafil [Papain-Ure* Intolerance ? - Ampicillin Rash Bilateral arms. - Darvocet-N 100 [Pro* Mental Status Change, Other: See Comments Dizziness. - Percocet [Oxycodone* Mental Status Change CURRENT OUTPATIENT MEDICATIONS: aspirin, enteric coated (ADULT LOW DOSE ASPIRIN) 81 mg EC tablet Take 1 tablet by mouth once daily. cetirizine (ZYRTEC) 10 mg tablet Take 1 tablet by mouth once daily. Cholecalciferol, Vitamin D3, (VITAMIN D) 2,000 unit ORAL Cap Take one(1) tablet two(2) times daily. COMPOUNDED PRESCRIPTION Home Oxygen @ 2L-4L Nasal Canula - continuous Diagnoses: Hypoxia 799.02, Dyspnea 786.09, Pulmonary Hypertension 416.8 Compression Knee Highs KNEE HIGH COMPRESSION STOCKINGS 30- 40 MM. DX: EDEMA CPAP Decrease the Bilevel setting to 13/8 cm h20 with 3 LPM of oxygen. fluticasone (FLONASE) 50 mcg/actuation nasal spray Use 2 Sprays in each nostril once daily. hydroCHLOROthiazide (HYDRODIURIL, ESIDRIX) 25 mg tablet TAKE 0.5 TABLETS BY MOUTH ONCE DAILY. lansoprazole (PREVACID) 15 mg capsule Take 2 capsules by mouth every evening. simvastatin (ZOCOR) 20 mg tablet TAKE 0.5 TABLETS BY MOUTH DAILY AT BEDTIME. GUAIFENESIN/DEXTROMETHORPHAN (MUCINEX DM ORAL) Take by mouth twice daily. spironolactone (ALDACTONE) 25 mg tablet Take 1 tablet by mouth once daily. warfarin (COUMADIN) 4 mg tablet Take 1 tablet by mouth once daily. PAST MEDICAL HISTORY Diagnosis Date - Allergic rhinitis - Angioneurotic edema not elsewhere classified DANIEL-I - Asthma - Benign neoplasm of colon - Bleeding ulcer - Contact dermatitis and other eczema, due to unspecified cause - Dysphagia Dr. Boyd - Fracture - Gastroparesis - GERD (gastroesophageal reflux disease) - History of poliomyelitis age 8 - History of staph infection Seeing Dr. Rinaldi yearly, on doxycycline - Impaired glucose tolerance test - Morbid obesity with BMI of 50.0-59.9, adult ([facility]) - On home oxygen therapy - Open wound of knee, leg (except thigh), and ankle, complicated - JUSTINA (obstructive sleep apnea) BiPAP 29/04 nightly - Pulmonary hypertension (HCC) Seeing Dr. Singh - Pure hypercholesterolemia - Unspecified essential hypertension - Venous stasis dermatitis PAST SURGICAL HISTORY Procedure Laterality Date - BX OF BREAST; INCISIONAL Bx of breast, incisional multiple, benign - COLONOSCOP W/ OR W/O [facility] SPEC N/A 11/14/2016 repeat in 2 years - COLONOSCOPY W/BX 10/27/08 - DANDC, DIAG AND/OR THERAPEUTIC - EMERGENCY TRACHEOTOMY Polio at the age of 8 - KNEE SCOPE,DIAGNOSTIC Arthroscopy, knee RIGHT - REMOVE CATARACT, INSERT LENS, INTRACAPSUL Bilateral 05/2016 - REMOVE TONSILS/ADENOIDS,<12 Y/O - TOTAL HIP REPLACEMENT 06/2007 Hip replacement, total right - TOTAL KNEE REPLACEMENT 12/2007 Knee replacement, total knee - TOTAL KNEE REPLACEMENT 04/24 Knee replacement, total FAMILY HISTORY Problem Relation Age of Onset - Diabetes Mother - Cancer Mother Bladder - Stroke Mother - Diabetes Maternal Aunt - Diabetes Maternal Uncle HEART DISEASE - Heart Maternal Grandmother Social History Marital status: Single Spouse name: Years of education: Number of children: 0 Occupational History Occupation Employer Comment Retired [employer] Social History Main Topics Smoking status: Never Smoker Smokeless tobacco: Never Used Comment: Parents non-smokers. Alcohol use: No Drug use: No Sexual activity: No REVIEW OF SYSTEMS: General: No chills, fever, weight loss, night sweats. SHEENT: No change in vision or auditory acuity. Respiratory: No productive cough.As above. Cardiac: As noted above. GI: No melena. Chronic GERD. : No dysuria. Musculoskeletal: No myalgias. Neurologic: No strokes. Psychiatric: No depression. Endocrine: Positive for diabetes. Hematologic: No anemia. PHYSICAL EXAMINATION: S/he is alert and in no distress VITAL SIGNS: BP 138/68 Pulse 69 Ht 5' 4 (1.63m) Wt 303 lb (137.4kg) BMI 51.98 kg/(m2). SHEENT: Skin is warm and dry. Pupils are round and reactive. No xanthelasmas appreciated. Pharynx is benign. There is no oral cyanosis. Neck: supple. No adenopathy or thyroid enlargement. Chest: Clear to auscultation. Trachea is midline. Air entry is equal. There is no chest wall tenderness. Cardiac: Regular rhythm. S1 and S2 are normal. PMI is nondisplaced. There is a soft systolic ejection murmur. No click is heard. Carotids are brisk without bruits. JVP is less than 10 cm. Abdomen: Soft and nontender. She is morbidly obese. There are no pulsatile masses or bruits. No liver enlargement. Bowel sounds are active. : Deferred. Extremities: There is at least 2 plus pitting edema. There is no weeping. There is gross obesity. Pulses are diminished but symmetrical. No clubbing or cyanosis. No femoral bruits. Neurologic: Grossly normal motor and sensory. S/he is alert and oriented x4. Musculoskeletal: No joint deformities. Echocardiogram shows preserved left ventricular function. There is mild pulmonary hypertension. 5 pressures are no higher than they have been in the past. EKG shows atrial fibrillation with controlled response. There is right bundle branch block and left anterior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, both of which have been present in the past. The atrial fibrillation is new. Recent laboratory studies were reviewed. Renal function is normal. LDL was 98. TSH is 2.9. Electronically Signed: Devnote Horta MD September 11, 2018 4:20 PM CC: Yolande Chairez MD CNNURSE Observed: 09/11/2018 Status: COMPLETED Source: [place] 3:30 PM [facility] REPOSITORY Nurse Visit ([facility]) VENICE CROFT ([id number]) 1945 F Date Time Provider Department 09/11/18 3:30 PM [facility] During your visit today, we recorded the following information about you: Referring Provider: DEVONTE HORTA [[id number]] Allergies As of Date: 09/11/2018 Noted Allergy Reaction DANIEL INHIBITORS 06/15/2005 7 - Swelling Comments: Angioedema. Lips. LIPITOR (ATORVASTATIN CALCIUM) 06/15/2005 Comments: Muscle aches PANAFIL ([id number]*08/18/2005 5 - Intolerance Comments: ? AMPICILLIN 06/15/2005 2 - Rash Comments: Bilateral arms. DARVOCET-N 100 (PROPOXYPHENE N-AC*01/31/2010 1 - Mental Status Change 14 - Other: See Comments Comments: Dizziness. PERCOCET (OXYCODONE-ACETAMINOPHEN)01/31/2010 1 - Mental Status Change Date Reviewed: 09/03/2018 Reviewed by: Thelma Singh - Fully Assessed Reason for Visit: Nurse Visit [792] Visit Diagnoses:PAF (paroxysmal atrial fibrillation) ([facility]LY [facility]) [I48.0] Essential hypertension [I10] Prescriptions as of 09/11/2018 Sig: ASPIRIN 81 MG TABLET,DELAYED * Take 1 tablet by mouth once d* CETIRIZINE 10 MG TABLET Take 1 tablet by mouth once d* CHOLECALCIFEROL (VITAMIN D3) * Take one(1) tablet two(2) corinne* COMPOUNDED PRESCRIPTION Home Oxygen @ 2L-4L Nasal Can* COMPOUNDED PRESCRIPTION KNEE HIGH COMPRESSION STOCKIN* CPAP Decrease the Bilevel setting * FLUTICASONE 50 MCG/ACTUATION * Use 2 Sprays in each nostril * MUCINEX DM ORAL Take by mouth twice daily. HYDROCHLOROTHIAZIDE 25 MG TAB* TAKE 0.5 TABLETS BY MOUTH ONC* LANSOPRAZOLE 15 MG CAPSULE,DE* Take 2 capsules by mouth ever* SIMVASTATIN 20 MG TABLET TAKE 0.5 TABLETS BY MOUTH MATTHEW* SPIRONOLACTONE 25 MG TABLET Take 1 tablet by mouth once d* WARFARIN 4 MG TABLET Take 1 tablet by mouth once d* Problem List As Of Date 09/11/2018 Noted Resolved Pure Hypercholesterolemia [E78.00] INVALID FOR* More... Essential hypertension [I10] INVALID FOR* More... 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 Lymphedema, not elsewhere classified [I89.0] INVALID FOR* Benign neoplasm of colon [D12.6] INVALID FOR*08/19/2012 Achilles bursitis or tendinitis [M76.60] INVALID FOR*08/19/2012 Unspecified sleep apnea [G47.30] INVALID FOR*06/13/2016 More... Non-healing surgical wound [T81.89XA] INVALID FOR*08/19/2012 Protein calorie malnutrition [E46] INVALID FOR*08/19/2012 More... PUD (peptic ulcer disease) [K27.9] INVALID FOR*08/19/2012 More... Pain in joint [M25.50] INVALID FOR*06/13/2016 Vitamin D deficiency [E55.9] INVALID FOR* Preop exam for internal medicine [Z01.818] 08/19/2012 Open wound of knee, leg (except thigh), and ank*INVALID FOR*08/19/2012 Hypertension [I10] INVALID FOR*06/13/2016 BMI 50.0-59.9, adult (HCC) [Z68.43] INVALID FOR*06/16/2014 JUSTINA (obstructive sleep apnea) [G47.33] INVALID FOR* Pulmonary hypertension (HCC) [I27.20] INVALID FOR* BMI 45.0-49.9, adult (HCC) [Z68.42] INVALID FOR*10/15/2014 BMI 40.0-44.9, adult (HCC) [Z68.41] INVALID FOR*03/28/2017 More... Allergic rhinitis [J30.9] INVALID FOR* Impaired glucose metabolism [R73.09] INVALID FOR*08/01/2018 More... On home oxygen therapy [Z99.81] INVALID FOR* Staphylococcus epidermidis infection [B95.7] INVALID FOR*03/28/2017 Dysphagia, unspecified(787.20) [R13.10] INVALID FOR* Morbid obesity with BMI of 50.0-59.9, adult (HC* Venous stasis dermatitis [I87.2] Pain in left hip [M25.552] INVALID FOR* Pain in the groin, left [R10.32] INVALID FOR* PAF (paroxysmal atrial fibrillation) (HCC) [I48*INVALID FOR* Encounter Status:Closed by CHUNG ABREU RN on 09/12/18 PROTIME Collected: 09/11/2018 Status: F Source: [facility] 12:05 PM [facility] REPOSITORY TYPE CODE TESTS RESULT OUT OF RANGE REFERENCE UNITS LAB PSEC 9.7-13.0 sec PT Sec 10.3 LAB INR 0.9-1.3 PT INR 1.0 Result Comment: Vitamin K Antagonist (VKA) Therapeutic Range: INR 2 to 3 (Target INR of 2.5) Note: For patients treated with VKA drugs, such as warfarin, the [employer] 2012 Guideline recommends a therapeutic INR range of 2 to 3 (target INR of 2.5). This recommendation includes high-risk patients with antiphospholipid syndrome with previous arterial or venous thromboembolism, current-generation mechanical or bioprosthetic aortic heart valve replacement. Note: Patients with mechanical aortic valve replacement and additional risk factors for thromboembolic events (atrial fibrillation, previous thromboembolism, LV dysfunction, hypercoagulable conditions) or an older generation mechanical AVR (i.e., ball in-Cage) or any mechanical MVR should have a INR therapeutic range of 2.5 to 3.5 (target INR of 3). Viola JENNINGS, et al. Chest 2012, 141:7S-47S Leo CORNEJO et al. [facility] 2017, 70: 252-289 Performed By: #### PT #### [facility] [address] [place], [place] [address] BASIC METABOLIC PANL Collected: 09/11/2018 Status: F Source: [place] 12:04 PM [facility] REPOSITORY TYPE CODE TESTS RESULT OUT OF REFERENCE UNITS RANGE LAB GLU 74-99 mg/dL Glucose High 116 LAB BUN 7-21 mg/dL BUN 13 LAB CRET 0.58-0.96 mg/dL Low Creatinine 0.56 LAB NA 136-144 mmol/L Sodium 137 LAB K 3.7-5.1 mmol/L Potassium 4.2 LAB CL 97-105 mmol/L Low Chloride 95 LAB CO2 22-30 mmol/L CO2 High 33 LAB AGAP mmol/L Anion Gap 9 LAB CA 8.5-10.2 mg/dL Calcium, Total 9.5 LAB GFRAA eGFR- >60 Amer. LAB GFRNAA . eGFR-All Other Races >60 Result Comment: eGFR (Estimated GFR) Units of measure: mL/min/1.73 meters squared eGFR is derived from the reexpressed MDRD Study equation using the following parameters: serum creatinine, age, gender and race. The creatinine assay has been calibrated to be traceable to IDMS. An eGFR <60 mL/min/1.73m2 for >3 months is consistent with chronic kidney disease. Refer to KDOQI guidelines for clinical interpretation. In patients with unstable renal function, e.g. those with acute kidney injury, the eGFR may not accurately reflect actual GFR. MAGNESIUM Collected: 09/11/2018 Status: F Source: [place] 12:04 PM [facility] REPOSITORY TYPE CODE TESTS RESULT OUT OF REFERENCE UNITS RANGE LAB MG 1.7-2.3 mg/dL Magnesium 1.8 CBC Collected: 09/11/2018 Status: F Source: [place] 12:04 PM [facility] REPOSITORY TYPE CODE TESTS RESULT OUT OF REFERENCE UNITS RANGE LAB WBC 3.70-11.00 k/uL WBC 6.51 LAB RBC 3.90-5.20 m/uL RBC 4.29 LAB HGB 11.5-15.5 g/dL Hemoglobin 12.7 LAB HCT 36.0-46.0 % Hematocrit 41.7 LAB MCV 80.0-100.0 fL MCV 97.2 LAB MCH 26.0-34.0 pG MCH 29.6 LAB MCHC 30.5-36.0 g/dL MCHC 30.5 LAB RDWCV 11.5-15.0 % RDW-CV 12.5 LAB PLTCT 150-400 k/uL Platelet Count 186 LAB MPV 9.0-12.7 fL MPV 11.0 LAB ABSNUC <0.01 k/uL Absolute nRBC <0.01 Performed By: #### CBC #### [facility] [address] [place], [place] [address] TSH Collected: 09/11/2018 Status: F Source: [place] 12:03 PM [facility] REPOSITORY TYPE CODE TESTS RESULT OUT OF RANGE REFERENCE UNITS LAB TSH 0.400-5.500 uU/mL TSH 2.500 Performed By: #### TSH #### [facility] [address] [place], [place] [address] EKG1 Observed: 09/11/2018 Status: F Source: [place] 11:36 AM [facility] REPOSITORY NAME : VENICE CROFT PID : [id number] : 1945 Gender : Female Race : ORD : Procedure Date : Sep 11 2018 11:36:55 Edit Date : Sep 14 2018 17:32:49 Diagnosis:ATRIAL FIBRILLATION COMPLETE RIGHT BUNDLE BRANCH BLOCK LEFT ANTERIOR FASCICULAR BLOCK BIFASCICULAR BLOCK MINIMAL VOLTAGE CRITERIA FOR LVH, MAY BE NORMAL VARIANT ABNORMAL ECG ATRIAL FIBRILLATION IS NEW. Confirmed by DEVONTE HORTA MD ([id number]) on 09/14/2018 5:32:44 PM Ventricular Rate : 85 BPM Atrial Rate : 98 BPM QRS Duration : 138 ms Q-T Interval : 418 ms QTC Calculation(Bezet) : 497 ms R Adair : -57 degrees T Adair : 22 degrees Test Reason : Location : 136 : [place] Overread By : DEVONTE HORTA MD Edited By : DEVONTE HORTA MD Referred By : DEVONTE HORTA Acquired by : SWATI BAKER Observed: 09/11/2018 Status: COMPLETED Source: [place] 10:30 AM [facility] REPOSITORY Office Visit (CAWSTR) VENICE CROFT ([id number]) 1945 F Date Time Provider Department 09/11/18 10:30 AM DEVONTE HORTA E CAWSTR During your visit today, we recorded the following information about you: Pulse Blood pressure Weight Height 69/minute 138/68 137.4 kg 1.626 m Devonte Horta MD 09/11/2018 4:30 PM Signed PERTINENT CARDIAC HISTORY PAF HTN HL DM Allergy to DANIEL-I Obesity JUSTINA - CPAP Pulmonary hypertension - mild Edema - stasis RBBB/LAFB ADHERENCE TO GUIDELINES DANIEL-I or ARB for HF with prior LVEF<40 (NQF 0081) - N/A ASA or Plavix for ASHD (NQF 0067) - met Beta keron for ASHD with prior NH or prior LVEF<40 (NQF 0070) - N/A Beta keron for HF with prior LVEF<40 (NQF 0083) - N/A DANIEL-I or ARB for ASHD with DM or prior LVEF<40 (NQF 0066) - allergy Statin therapy for ASHD or FHL or DM - met BMI documented and plan if >25 (NQF 0421) - lifestyle recommendation form Tobacco use screening and referral (NQF 0028) - lifestyle recommendation form Recommendation for whole food, plant based diet - lifestyle recommendation form CLINICAL IMPRESSION/PLAN: Venice Croft has atrial fibrillation of uncertain duration. She was in sinus rhythm in February of the time of her most recent echocardiogram. As she is asymptomatic, duration cannot be defined. I recommend that she begin warfarin. We will discuss this with Dr. Chairez to see if she is a reasonable candidate. She's had no recent falls. Her epistaxis appears to be well controlled. There is no clear indication for aspirin. We will start Aldactone 25 milligrams daily for better control of her peripheral edema. BMP, CBC, INR, stool occult blood and TSH will be obtained today and basic profile will be repeated next week. If she is a good candidate for warfarin, we will initiate at 4 milligrams daily and see her back in a month to discuss possible cardioversion. I've asked her to check vital signs on a regular basis and contact me periodically. Thank you for asking me to see and make recommendations on Venice Croft. This report is available to you in the shared medical record. Written and verbal health teaching given to patient, patient verbalizes understanding and agrees with treatment plan. DIAGNOSIS FOR VISIT: Atrial fibrillation Hypertension HISTORY OF PRESENT ILLNESS Venice Croft is a 73-year-old woman with no prior history of atrial fibrillation, who was referred for follow-up echocardiogram today for status on her pulmonary hypertension, in view of recent increase in edema. She had reported about 20 pound weight gain and increased shortness of breath. She was noted to be in atrial fibrillation at the time of her echocardiogram. She is seen in consultation at the request of primary care She has no previous history of cardiac arrhythmia. She has had no palpitations. She denies chest pain. She has had increasing shortness of breath with activity as well as increased edema. She is on chronic oxygen for her lung disease. She is on CPAP. She has been compliant. She's had no TIAs, amaurosis, claudication, syncope or near syncope. She has never been on anticoagulation. There is no previous history of DVT. she had a GI bleed 20 years ago without recurrence. She has occasional epistaxis but she can control this well with manual pressure. ALLERGIES: ALLERGIES Allergen Reactions - Daniel Inhibitors Swelling Angioedema. Lips. - Lipitor [Atorvastat* Muscle aches - Panafil [Papain-Ure* Intolerance ? - Ampicillin Rash Bilateral arms. - Darvocet-N 100 [Pro* Mental Status Change, Other: See Comments Dizziness. - Percocet [Oxycodone* Mental Status Change CURRENT OUTPATIENT MEDICATIONS: aspirin, enteric coated (ADULT LOW DOSE ASPIRIN) 81 mg EC tablet Take 1 tablet by mouth once daily. cetirizine (ZYRTEC) 10 mg tablet Take 1 tablet by mouth once daily. Cholecalciferol, Vitamin D3, (VITAMIN D) 2,000 unit ORAL Cap Take one(1) tablet two(2) times daily. COMPOUNDED PRESCRIPTION Home Oxygen @ 2L-4L Nasal Canula - continuous Diagnoses: Hypoxia 799.02, Dyspnea 786.09, Pulmonary Hypertension 416.8 Compression Knee Highs KNEE HIGH COMPRESSION STOCKINGS 30- 40 MM. DX: EDEMA CPAP Decrease the Bilevel setting to 13/8 cm h20 with 3 LPM of oxygen. fluticasone (FLONASE) 50 mcg/actuation nasal spray Use 2 Sprays in each nostril once daily. hydroCHLOROthiazide (HYDRODIURIL, ESIDRIX) 25 mg tablet TAKE 0.5 TABLETS BY MOUTH ONCE DAILY. lansoprazole (PREVACID) 15 mg capsule Take 2 capsules by mouth every evening. simvastatin (ZOCOR) 20 mg tablet TAKE 0.5 TABLETS BY MOUTH DAILY AT BEDTIME. GUAIFENESIN/DEXTROMETHORPHAN (MUCINEX DM ORAL) Take by mouth twice daily. spironolactone (ALDACTONE) 25 mg tablet Take 1 tablet by mouth once daily. warfarin (COUMADIN) 4 mg tablet Take 1 tablet by mouth once daily. PAST MEDICAL HISTORY Diagnosis Date - Allergic rhinitis - Angioneurotic edema not elsewhere classified DANIEL-I - Asthma - Benign neoplasm of colon - Bleeding ulcer - Contact dermatitis and other eczema, due to unspecified cause - Dysphagia Dr. Boyd - Fracture - Gastroparesis - GERD (gastroesophageal reflux disease) - History of poliomyelitis age 8 - History of staph infection Seeing Dr. Rinaldi yearly, on doxycycline - Impaired glucose tolerance test - Morbid obesity with BMI of 50.0-59.9, adult (HCC) - On home oxygen therapy - Open wound of knee, leg (except thigh), and ankle, complicated - JUSTINA (obstructive sleep apnea) BiPAP 29/04 nightly - Pulmonary hypertension (HCC) Seeing Dr. Singh - Pure hypercholesterolemia - Unspecified essential hypertension - Venous stasis dermatitis PAST SURGICAL HISTORY Procedure Laterality Date - BX OF BREAST; INCISIONAL Bx of breast, incisional multiple, benign - COLONOSCOP W/ OR W/O BRSH SPEC N/A 11/14/2016 repeat in 2 years - COLONOSCOPY W/BX 10/27/08 - DANDC, DIAG AND/OR THERAPEUTIC - EMERGENCY TRACHEOTOMY Polio at the age of 8 - KNEE SCOPE,DIAGNOSTIC 1990s Arthroscopy, knee RIGHT - REMOVE CATARACT, INSERT LENS, INTRACAPSUL Bilateral 05/2016 - REMOVE TONSILS/ADENOIDS,<12 Y/O - TOTAL HIP REPLACEMENT 06/2007 Hip replacement, total right - TOTAL KNEE REPLACEMENT 12/2007 Knee replacement, total knee - TOTAL KNEE REPLACEMENT 04/24 Knee replacement, total FAMILY HISTORY Problem Relation Age of Onset - Diabetes Mother - Cancer Mother Bladder - Stroke Mother - Diabetes Maternal Aunt - Diabetes Maternal Uncle HEART DISEASE - Heart Maternal Grandmother Social History Marital status: Single Spouse name: Years of education: Number of children: 0 Occupational History Occupation Employer Comment Retired [employer] Social History Main Topics Smoking status: Never Smoker Smokeless tobacco: Never Used Comment: Parents non-smokers. Alcohol use: No Drug use: No Sexual activity: No REVIEW OF SYSTEMS: General: No chills, fever, weight loss, night sweats. SHEENT: No change in vision or auditory acuity. Respiratory: No productive cough.As above. Cardiac: As noted above. GI: No melena. Chronic GERD. : No dysuria. Musculoskeletal: No myalgias. Neurologic: No strokes. Psychiatric: No depression. Endocrine: Positive for diabetes. Hematologic: No anemia. PHYSICAL EXAMINATION: S/he is alert and in no distress VITAL SIGNS: BP 138/68 Pulse 69 Ht 5' 4 (1.63m) Wt 303 lb (137.4kg) BMI 51.98 kg/(m2). SHEENT: Skin is warm and dry. Pupils are round and reactive. No xanthelasmas appreciated. Pharynx is benign. There is no oral cyanosis. Neck: supple. No adenopathy or thyroid enlargement. Chest: Clear to auscultation. Trachea is midline. Air entry is equal. There is no chest wall tenderness. Cardiac: Regular rhythm. S1 and S2 are normal. PMI is nondisplaced. There is a soft systolic ejection murmur. No click is heard. Carotids are brisk without bruits. JVP is less than 10 cm. Abdomen: Soft and nontender. She is morbidly obese. There are no pulsatile masses or bruits. No liver enlargement. Bowel sounds are active. : Deferred. Extremities: There is at least 2 plus pitting edema. There is no weeping. There is gross obesity. Pulses are diminished but symmetrical. No clubbing or cyanosis. No femoral bruits. Neurologic: Grossly normal motor and sensory. S/he is alert and oriented x4. Musculoskeletal: No joint deformities. Echocardiogram shows preserved left ventricular function. There is mild pulmonary hypertension. 5 pressures are no higher than they have been in the past. EKG shows atrial fibrillation with controlled response. There is right bundle branch block and left anterior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, both of which have been present in the past. The atrial fibrillation is new. Recent laboratory studies were reviewed. Renal function is normal. LDL was 98. TSH is 2.9. Electronically Signed: Devonte Horta MD September 11, 2018 4:20 PM CC: MD Devonte Santana MD 09/11/2018 4:31 PM Signed LIFESTYLE CHANGE A healthy lifestyle is the most important component of your overall treatment plan. Please give serious thought to the following areas and commit to making intermediate changes. EAT A WHOLE FOOD, PLANT BASED DIET The nutrition your body gets is more important than the medicine you take. What matters most is the overall way you eat. We encourage you to minimize the use of animal products (which include dairy and all meats except fatty fish) and use whole, unprocessed plant foods to provide your protein, vitamins and other nutrients. We have a lot of information to share with you on this topic. This is not a diet. It is a way of life that you will keep with you. EXERCISE REGULARLY It is not important to spend hours in the gym, lifting weights and perspiring heavily. A total of 2-3 hours per week of aerobic (causing you to be moderately short of breath) exercise is sufficient to improve your health. Talk to us before you begin a new exercise program, if you have heart disease or experience shortness of breath or chest pain. REDUCE STRESS Chronic emotional and physical stress leads to disease. Ways of reducing stress include meditation, visualization, prayer, yoga and other forms of relaxation therapy. Consistency is the mcghee. Find a technique that works for you and do it every day. CULTIVATE RELATIONSHIPS Loneliness and isolation have a major negative impact on health. Seek out others who can love, care for and nurture you. Avoid hurtful relationships. MAINTAIN IDEAL BODY WEIGHT The best way to do this is to do all the things above. Our bodies naturally find the right weight if we keep moving and feed ourselves the right food. If your BMI is greater than 25, we strongly recommend a referral to a weight management program. Please speak to us or your family physician about available programs. AVOID NICOTINE IN ALL FORMS This includes all tobacco products, whether chewed, smoked, vaped, or rubbed on the skin. Smoking cessation programs, which can make use of tobacco substitutes, medications to suppress cravings and behavior management, are available. Please contact your family physician about programs in your area. Referring Provider: DEVONTE HORTA [[id number]] Allergies As of Date: 09/11/2018 Noted Allergy Reaction DANIEL INHIBITORS 06/15/2005 7 - Swelling Comments: Angioedema. Lips. LIPITOR (ATORVASTATIN CALCIUM) 06/15/2005 Comments: Muscle aches PANAFIL ([id number]-[id number]*08/18/2005 5 - Intolerance Comments: ? AMPICILLIN 06/15/2005 2 - Rash Comments: Bilateral arms. DARVOCET-N 100 (PROPOXYPHENE N-AC*01/31/2010 1 - Mental Status Change 14 - Other: See Comments Comments: Dizziness. PERCOCET (OXYCODONE-ACETAMINOPHEN)01/31/2010 1 - Mental Status Change Date Reviewed: 09/03/2018 Reviewed by: Thelma Singh - Fully Assessed Reason for Visit: New Patient [172] Cmt: Afib Primary Visit Diagnosis:PAF (paroxysmal atrial fibrillation) (HCC) [I48.0] Other Visit Diagnosis:Essential hypertension [I10] Order(s):ECG COMPLETE W INTERPRETATION [ECG01] Order #: [id number] FUTURE PROTHROMBIN TIME/PT [SQPT] Order #: [id number] STANDING BASIC METABOLIC PNL [SQBMP] Order #: [id number] FUTURE MAGNESIUM BLD [SQMG1] Order #: [id number] FUTURE TSH BLD [SQTSH] Order #: [id number] FUTURE CBC [SQCBC] Order #: [id number] FUTURE FECAL OCCULT BLOOD TEST [SQIFOBT] Order #: [id number] FUTURE warfarin (COUMADIN) 4 mg tabletTake 1 tablet by mouth once daily.Disp: 30 tabletRfl: 6 spironolactone (ALDACTONE) 25 mg tabletTake 1 tablet by mouth once daily.Disp: 30 tabletRfl: 6 Prescriptions as of 09/11/2018 Sig: ASPIRIN 81 MG TABLET,DELAYED * Take 1 tablet by mouth once d* CETIRIZINE 10 MG TABLET Take 1 tablet by mouth once d* CHOLECALCIFEROL (VITAMIN D3) * Take one(1) tablet two(2) corinne* COMPOUNDED PRESCRIPTION Home Oxygen @ 2L-4L Nasal Can* COMPOUNDED PRESCRIPTION KNEE HIGH COMPRESSION STOCKIN* CPAP Decrease the Bilevel setting * FLUTICASONE 50 MCG/ACTUATION * Use 2 Sprays in each nostril * HYDROCHLOROTHIAZIDE 25 MG TAB* TAKE 0.5 TABLETS BY MOUTH ONC* LANSOPRAZOLE 15 MG CAPSULE,DE* Take 2 capsules by mouth ever* SIMVASTATIN 20 MG TABLET TAKE 0.5 TABLETS BY MOUTH MATTHEW* MUCINEX DM ORAL Take by mouth twice daily. SPIRONOLACTONE 25 MG TABLET Take 1 tablet by mouth once d* WARFARIN 4 MG TABLET Take 1 tablet by mouth once d* Problem List As Of Date 09/11/2018 Noted Resolved Pure Hypercholesterolemia [E78.00] INVALID FOR* More... Essential hypertension [I10] INVALID FOR* More... 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 Lymphedema, not elsewhere classified [I89.0] INVALID FOR* Benign neoplasm of colon [D12.6] INVALID FOR*08/19/2012 Achilles bursitis or tendinitis [M76.60] INVALID FOR*08/19/2012 Unspecified sleep apnea [G47.30] INVALID FOR*06/13/2016 More... Non-healing surgical wound [T81.89XA] INVALID FOR*08/19/2012 Protein calorie malnutrition [E46] INVALID FOR*08/19/2012 More... PUD (peptic ulcer disease) [K27.9] INVALID FOR*08/19/2012 More... Pain in joint [M25.50] INVALID FOR*06/13/2016 Vitamin D deficiency [E55.9] INVALID FOR* Preop exam for internal medicine [Z01.818] 08/19/2012 Open wound of knee, leg (except thigh), and ank*INVALID FOR*08/19/2012 Hypertension [I10] INVALID FOR*06/13/2016 BMI 50.0-59.9, adult (HCC) [Z68.43] INVALID FOR*06/16/2014 JUSTINA (obstructive sleep apnea) [G47.33] INVALID FOR* Pulmonary hypertension (HCC) [I27.20] INVALID FOR* BMI 45.0-49.9, adult (HCC) [Z68.42] INVALID FOR*10/15/2014 BMI 40.0-44.9, adult (HCC) [Z68.41] INVALID FOR*03/28/2017 More... Allergic rhinitis [J30.9] INVALID FOR* Impaired glucose metabolism [R73.09] INVALID FOR*08/01/2018 More... On home oxygen therapy [Z99.81] INVALID FOR* Staphylococcus epidermidis infection [B95.7] INVALID FOR*03/28/2017 Dysphagia, unspecified(787.20) [R13.10] INVALID FOR* Morbid obesity with BMI of 50.0-59.9, adult (HC* Venous stasis dermatitis [I87.2] Pain in left hip [M25.552] INVALID FOR* Pain in the groin, left [R10.32] INVALID FOR* PAF (paroxysmal atrial fibrillation) (HCC) [I48*INVALID FOR* Other instructions from your clinician: LIFESTYLE CHANGE A healthy lifestyle is the most important component of your overall treatment plan. Please give serious thought to the following areas and commit to making intermediate changes. EAT A WHOLE FOOD, PLANT BASED DIET The nutrition your body gets is more important than the medicine you take. What matters most is the overall way you eat. We encourage you to minimize the use of animal products (which include dairy and all meats except fatty fish) and use whole, unprocessed plant foods to provide your protein, vitamins and other nutrients. We have a lot of information to share with you on this topic. This is not a diet. It is a way of life that you will keep with you. EXERCISE REGULARLY It is not important to spend hours in the gym, lifting weights and perspiring heavily. A total of 2-3 hours per week of aerobic (causing you to be moderately short of breath) exercise is sufficient to improve your health. Talk to us before you begin a new exercise program, if you have heart disease or experience shortness of breath or chest pain. REDUCE STRESS Chronic emotional and physical stress leads to disease. Ways of reducing stress include meditation, visualization, prayer, yoga and other forms of relaxation therapy. Consistency is the mcghee. Find a technique that works for you and do it every day. CULTIVATE RELATIONSHIPS Loneliness and isolation have a major negative impact on health. Seek out others who can love, care for and nurture you. Avoid hurtful relationships. MAINTAIN IDEAL BODY WEIGHT The best way to do this is to do all the things above. Our bodies naturally find the right weight if we keep moving and feed ourselves the right food. If your BMI is greater than 25, we strongly recommend a referral to a weight management program. Please speak to us or your family physician about available programs. AVOID NICOTINE IN ALL FORMS This includes all tobacco products, whether chewed, smoked, vaped, or rubbed on the skin. Smoking cessation programs, which can make use of tobacco substitutes, medications to suppress cravings and behavior management, are available. Please contact your family physician about programs in your area. Prescriptions ordered this encounter Disp Refills Start End WARFARIN 4 MG TABLET 30 t* 6 09/11/2018 Route: ORAL Sig: Take 1 tablet by mouth once daily. SPIRONOLACTONE 25 MG TABLET 30 t* 6 09/11/2018 Route: ORAL Sig: Take 1 tablet by mouth once daily. Follow-up and Disposition History Recorded Encounter Status:Closed by DEVONTE HORTA MD on 09/11/18 PROGRESS Observed: 09/05/2018 Status: COMPLETED Source: [place] 10:24 AM [facility] [place] REPOSITORY HNO ID: [id number] Author: Sofiya Myers Service: (none) Author Type: Physical Therapist Type: Progress Notes Filed: 09/05/2018 10:26 AM Note Text: Episode Visit Count: 14 Therapist That Will Oversee The Plan Of Care: Sofiya Myers PT Start of Care Date: 04/12/18 Onset Date: 02/21/18 Plan of Care Certification Date: 08/13/18 Patient Identified by Name and Date of : Yes [facility]AB[facility] PHYSICAL THERAPY TREATMENT NOTE ASSESSMENT: Venice Croft demonstrated improvements in being able to stand for over 60 minutes to stuff stockings for nondenominational and had no sharp pain in hip. Patient reported feeling somewhat looser after today's session. The patient will continue to benefit from continued skilled physical therapy for ther ex and manual to help with L groin sx. PLAN FOR NEXT VISIT: POC update: 09/19/2018. continue with exercise to patient tolerance . SUBJECTIVE: Things have been good and bad. Last week didn't seem so good. Patient has more swelling in her legs. Doing an echo cardiogram after Thierno to get her heart checked out. Yesterday and today seem easier for patient to move. Standing for greater than 60 minutes stuffing stockings went ok. Had to sit down because tired but had no sharp pains in her L hip. Nedra has the wrap libertarian at nondenominational; she will be sitting for this. Pain Score: (Sittin/10 Walkin/10) Pain Location: Groin - Left;Buttocks - Left Description: Dull;Aching Frequency: Intermittent Post Treatment Pain Score: (somewhat looser in L hip) OBJECTIVE MEASURES WITH LEVEL OF FUNCTION: Gait Gait Observation: Using std cane on R Functional Performance Test Results 5 Times Sit to Stand Test : 16 sec (sharpness every time stood) TREATMENT: Therapeutic Exercise: 4: Step up on [place] step with B UE support x10 each side 8: LEFT heel slides with sliding board 1x10, stopped d/t increase in L groin pain. 9: Supine L hip ABD with sliding board 3x10 in pain free range 10: Seated Recumbent Stepper Seat 16, level 1.5, arms 5, 6 minutes. Took subjective 12: Seated LAQ 2x15, B 15: Standing 4 way with orange band 2x10 each direction, B with BUE support 16: STS from lowest first mat table x5 19: Seated L hamstring stretch x6, 10x 20: Seated hip ABD with green band 3x10 (gave green band) Skilled Intervention: Patient was educated in proper exercise technique and purpose for exercises. Skilled judgment was provided in selection of appropriate interventions. Manual Therapy: 2: L leg traction with inferior glide (to help improve hip ABD) with intermittent pulling and oscillaltion 8 minutes. Skilled Intervention: Manual skills to improve joint mobility, ROM, and decrease pain. Utilized anatomy knowledge of the therapist, and assessment of patient's response to intervention. Billing: [facility]: Therapeutic Exercise ([id number]): 1:1 time: 37 minutes (2 units: 23-37 mins) Manual Therapy ([id number]): 1:1 time: 8 minutes (1 unit: 8-22 mins) Total time: 45 minutes Sofiya Myers PT CNTHERAPY Observed: 09/03/2018 Status: COMPLETED Source: [place] 11:45 AM [facility] REPOSITORY OT/PT/Speech Visit (PTWS) VENICE CROFT ([id number]) 1945 F Date Time Provider Department 09/03/18 11:45 AM SOFIYA MYERS (PT) PTWS Date Time Provider Department Center 09/03/2018 11:45 AM [id number], DIANA (PT)PTWS [facility] Reason for Visit: Physical Therapy [503] Primary Visit Diagnosis:Pain in left hip [M25.552] Other Visit Diagnosis:Pain in the groin, left [R10.32] Allergies As of Date: 09/03/2018 Noted Allergy Reaction DANIEL INHIBITORS 06/15/2005 7 - Swelling Comments: Angioedema. Lips. LIPITOR (ATORVASTATIN CALCIUM) 06/15/2005 Comments: Muscle aches PANAFIL ([id number]*08/18/2005 5 - Intolerance Comments: ? AMPICILLIN 06/15/2005 2 - Rash Comments: Bilateral arms. DARVOCET-N 100 (PROPOXYPHENE N-AC*01/31/2010 1 - Mental Status Change 14 - Other: See Comments Comments: Dizziness. PERCOCET (OXYCODONE-ACETAMINOPHEN)01/31/2010 1 - Mental Status Change Date Reviewed: 09/03/2018 Reviewed by: Thelma Singh - Fully Assessed Prescriptions as of 09/03/2018 Sig: ASPIRIN 81 MG TABLET,DELAYED * Take 1 tablet by mouth once d* CETIRIZINE 10 MG TABLET Take 1 tablet by mouth once d* CHOLECALCIFEROL (VITAMIN D3) * Take one(1) tablet two(2) corinne* COMPOUNDED PRESCRIPTION Home Oxygen @ 2L-4L Nasal Can* COMPOUNDED PRESCRIPTION KNEE HIGH COMPRESSION STOCKIN* CPAP Decrease the Bilevel setting * FLUTICASONE 50 MCG/ACTUATION * Use 2 Sprays in each nostril * MUCINEX DM ORAL Take by mouth twice daily. HYDROCHLOROTHIAZIDE 25 MG TAB* TAKE 0.5 TABLETS BY MOUTH ONC* LANSOPRAZOLE 15 MG CAPSULE,DE* Take 2 capsules by mouth ever* SIMVASTATIN 20 MG TABLET TAKE 0.5 TABLETS BY MOUTH MATTHEW* Progress Notes: Sofiya Myers PT 09/05/2018 10:26 AM Signed Episode Visit Count: 14 Therapist That Will Oversee The Plan Of Care: Sofiya Myers PT Start of Care Date: 04/12/18 Onset Date: 02/21/18 Plan of Care Certification Date: 08/13/18 Patient Identified by Name and Date of : Yes REHABILITATION AND SPORTS THERAPY PHYSICAL THERAPY TREATMENT NOTE ASSESSMENT: Venice Croft demonstrated improvements in being able to stand for over 60 minutes to stuff stockings for nondenominational and had no sharp pain in hip. Patient reported feeling somewhat looser after today's session. The patient will continue to benefit from continued skilled physical therapy for ther ex and manual to help with L groin sx. PLAN FOR NEXT VISIT: POC update: 09/19/2018. continue with exercise to patient tolerance . SUBJECTIVE: Things have been good and bad. Last week didn't seem so good. Patient has more swelling in her legs. Doing an echo cardiogram after [place] to get her heart checked out. Yesterday and today seem easier for patient to move. Standing for greater than 60 minutes stuffing stockings went ok. Had to sit down because tired but had no sharp pains in her L hip. Nedra has the wrap libertarian at nondenominational; she will be sitting for this. Pain Score: (Sittin/10 Walkin/10) Pain Location: Groin - Left;Buttocks - Left Description: Dull;Aching Frequency: Intermittent Post Treatment Pain Score: (somewhat looser in L hip) OBJECTIVE MEASURES WITH LEVEL OF FUNCTION: Gait Gait Observation: Using std cane on R Functional Performance Test Results 5 Times Sit to Stand Test : 16 sec (sharpness every time stood) TREATMENT: Therapeutic Exercise: 4: Step up on [place] step with B UE support x10 each side 8: LEFT heel slides with sliding board 1x10, stopped d/t increase in L groin pain. 9: Supine L hip ABD with sliding board 3x10 in pain free range 10: Seated Recumbent Stepper Seat 16, level 1.5, arms 5, 6 minutes. Took subjective 12: Seated LAQ 2x15, B 15: Standing 4 way with orange band 2x10 each direction, B with BUE support 16: STS from lowest first mat table x5 19: Seated L hamstring stretch x6, 10x 20: Seated hip ABD with green band 3x10 (gave green band) Skilled Intervention: Patient was educated in proper exercise technique and purpose for exercises. Skilled judgment was provided in selection of appropriate interventions. Manual Therapy: 2: L leg traction with inferior glide (to help improve hip ABD) with intermittent pulling and oscillaltion 8 minutes. Skilled Intervention: Manual skills to improve joint mobility, ROM, and decrease pain. Utilized anatomy knowledge of the therapist, and assessment of patient's response to intervention. Billing: [facility]: Therapeutic Exercise (02912): 1:1 time: 37 minutes (2 units: 23-37 mins) Manual Therapy ([id number]): 1:1 time: 8 minutes (1 unit: 8-22 mins) Total time: 45 minutes Sofiya Myers PT SWATI Observed: 09/03/2018 Status: COMPLETED Source: [place] 9:30 AM [facility] REPOSITORY Office Visit (PULMWS) ZEKEVENICE ([id number]) 1945 F Date Time Provider Department 09/03/18 9:30 AM THELMA SINGH During your visit today, we recorded the following information about you: Pulse Respiration Blood pressure Weight 76/minute 20/minute 118/68 136.5 kg Yenifer Myers LPN 09/03/2018 9:41 AM Attested Attestation signed by Thelma iSngh at 09/30/2018 9:48 AM Reviewed with patient, confirmed as documented by Yenifer Myers LPN. TO ROS: General: Generally feels well, recent weight gain due to decrease in activity with groin/hip injury. Reports her exertional tolerance is down. Appetite good. Eyes, Ears, nose, throat: denies post nasal drip. denies rhinorrhea. denies purulent nasal discharge. denies epistaxis. occasional hoarseness. Vision stable. Cardiac: denies angina, notes edema, denies orthopnea. GI: denies heartburn. denies dysphagia. denies diarrhea. Uro/INFORMATION BROKER: denies dysuria. denies hesitancy. denies nocturia. Menses: post menopausal Musculoskeletal: notes groin and hip pain. Currently attending PT. Neuro: denies headache, denies focal weakness. denies tremor. Skin: denies rash. Otherwise negative. Thelma Singh MD 09/03/2018 9:53 AM Signed 1. The BiPAP compliance report shows good control of obstructive sleep apnea, with apnea hypopnea index of < 1 (normal < 5). - But record also shows leak, which could affect comfort. Change mask and ask DME Supplier to re-run compliance report. 2. Increasing edema of legs, and weight increase may reflect change in pulmonary artery pressure and heart function. - Repeat echocardiogram to re-assess. - Further recommendations to follow this result. Thelma Singh MD, [facility] [address] [address] P: [phone] F: [phone] [email or web address] Thelma Singh MD 09/30/2018 9:58 AM Signed [facility], 09/03/2018 INTERVAL HISTORY: Patient is noticing increasing shortness of breath limiting activities of daily living. There is no increase in cough and there is no purulent sputum, hemoptysis or pleuritic chest pain. She has also described some increase in lower extremity edema. She claims consistent compliance with prescribed PAP therapy. Little if any energy. ROS: Reviewed with patient, confirmed as documented by Yenifer Myers LPN. TO PMH, FAMH, SOCH: Updated with patient today. Allergies reviewed and updated, and medications reconciled today. Immunization History Administered Date(s) Administered Influenza Seasonal - High Dose - Age 65+ 06/14/2015 06/13/2016 08/01/2017 07/12/2018 Influenza Seasonal Inj Age 3+ 07/02/2014 Influenza Vaccine, Split-Non Spec 07/16/2006 07/27/2008 07/12/2009 06/23/2010 08/12/2012 08/07/2013 Pneumococcal-13 Vac Conjugate 10/15/2014 Pneumovax 07/27/2008 Tetanus/Diphtheria Unspec 11/24/2008 PHYSICAL EXAMINATION: BP 118/68 Pulse 76 Resp 20 Wt 301 lb (136.5kg) SpO2 91% Gen: No acute distress. Cooperative with examination. Morbidly obese. ENT: Sclerae clear. Nares clear. Oral hygeine/dentition good. Pharynx clear, temperature uvula not visible. No halitosis. Resp: No stridor, accessory respiratory muscle use, supra- sternal or intercostal retractions. No crackles, wheezes, rubs. CV: Regular rythm. Heart tones normal. Unable to visualize JVP, HJR. No carotid bruit. Radial pulses normal. Abd: Obese, pendulous, not distended. MSK: No kyphoscoliosis. Ext: Warm and well perfused. No clubbing, cyanosis2+ pitting edema both lower legs. No sclerodactyly, Raynaud's. Skin: Color normal. Texture normal. No rash. Lymph: Unable to appreciate adenopathy in neck, supra-clavicular fossae. Endo: Unable to appreciate goiter. No exophthalmos onycholysis. Neuro: Mental status normal. Affect normal. Muscle strength symmetrical. No tremor. IMPRESSION AND RECOMMENDATIONS: Pulmonary hypertension due to obstructive sleep apnea and obesity-hypoventilation syndrome. 1. The BiPAP compliance report shows good control of obstructive sleep apnea, with apnea hypopnea index of < 1 (normal < 5). - But record also shows leak, which could affect comfort. Change mask and ask DME Supplier to re-run compliance report. 2. Increasing edema of legs, and weight increase may reflect change in pulmonary artery pressure and heart function. - Repeat echocardiogram to re-assess. - Further recommendations to follow this result. Thelma Singh MD, [facility] [address] [place] [id number] P: [phone] F: [phone] Referring Provider: ROYA DUCKWORTH ([facility]) [[id number]] Allergies As of Date: 09/03/2018 Noted Allergy Reaction DANIEL INHIBITORS 06/15/2005 7 - Swelling Comments: Angioedema. Lips. LIPITOR (ATORVASTATIN CALCIUM) 06/15/2005 Comments: Muscle aches PANAFIL ([id number]*08/18/2005 5 - Intolerance Comments: ? AMPICILLIN 06/15/2005 2 - Rash Comments: Bilateral arms. DARVOCET-N 100 (PROPOXYPHENE N-AC*01/31/2010 1 - Mental Status Change 14 - Other: See Comments Comments: Dizziness. PERCOCET (OXYCODONE-ACETAMINOPHEN)01/31/2010 1 - Mental Status Change Date Reviewed: 09/03/2018 Reviewed by: Thelma Singh - Fully Assessed Reason for Visit: Established Patient [175] Cmt: 6 month follow up pulmonary HTN Primary Visit Diagnosis:Other secondary pulmonary hypertension (HCC) [I27.29] Other Visit Diagnoses:JUSTINA treated with BiPAP [G47.33] Morbid obesity (HCC) [E66.01] Order(s):ECHO [296002] Order #: [id number]: 1 FUTURE Prescriptions as of 09/03/2018 Sig: SIMVASTATIN 20 MG TABLET TAKE 0.5 TABLETS BY MOUTH MATTHEW* CETIRIZINE 10 MG TABLET Take 1 tablet by mouth once d* COMPOUNDED PRESCRIPTION KNEE HIGH COMPRESSION STOCKIN* HYDROCHLOROTHIAZIDE 25 MG TAB* TAKE 0.5 TABLETS BY MOUTH ONC* FLUTICASONE 50 MCG/ACTUATION * Use 2 Sprays in each nostril * MUCINEX DM ORAL Take by mouth twice daily. LANSOPRAZOLE 15 MG CAPSULE,DE* Take 2 capsules by mouth ever* ASPIRIN 81 MG TABLET,DELAYED * Take 1 tablet by mouth once d* CPAP Decrease the Bilevel setting * COMPOUNDED PRESCRIPTION Home Oxygen @ 2L-4L Nasal Can* CHOLECALCIFEROL (VITAMIN D3) * Take one(1) tablet two(2) corinne* Problem List As Of Date 09/03/2018 Noted Resolved Pure Hypercholesterolemia [E78.00] INVALID FOR* More... Essential hypertension [I10] INVALID FOR* More... 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 Lymphedema, not elsewhere classified [I89.0] INVALID FOR* Benign neoplasm of colon [D12.6] INVALID FOR*08/19/2012 Achilles bursitis or tendinitis [M76.60] INVALID FOR*08/19/2012 Unspecified sleep apnea [G47.30] INVALID FOR*06/13/2016 More... Non-healing surgical wound [T81.89XA] INVALID FOR*08/19/2012 Protein calorie malnutrition [E46] INVALID FOR*08/19/2012 More... PUD (peptic ulcer disease) [K27.9] INVALID FOR*08/19/2012 More... Pain in joint [M25.50] INVALID FOR*06/13/2016 Vitamin D deficiency [E55.9] INVALID FOR* Preop exam for internal medicine [Z01.818] 08/19/2012 Open wound of knee, leg (except thigh), and ank*INVALID FOR*08/19/2012 Hypertension [I10] INVALID FOR*06/13/2016 BMI 50.0-59.9, adult (HCC) [Z68.43] INVALID FOR*06/16/2014 JUSTINA (obstructive sleep apnea) [G47.33] INVALID FOR* Pulmonary hypertension (HCC) [I27.20] INVALID FOR* BMI 45.0-49.9, adult (HCC) [Z68.42] INVALID FOR*10/15/2014 BMI 40.0-44.9, adult (HCC) [Z68.41] INVALID FOR*03/28/2017 More... Allergic rhinitis [J30.9] INVALID FOR* Impaired glucose metabolism [R73.09] INVALID FOR*08/01/2018 More... On home oxygen therapy [Z99.81] INVALID FOR* Staphylococcus epidermidis infection [B95.7] INVALID FOR*03/28/2017 Dysphagia, unspecified(787.20) [R13.10] INVALID FOR* Morbid obesity with BMI of 50.0-59.9, adult (HC* Venous stasis dermatitis [I87.2] Pain in left hip [M25.552] INVALID FOR* Pain in the groin, left [R10.32] INVALID FOR* Notes for Staff Discussed this visit Other instructions from your clinician: 1. The BiPAP compliance report shows good control of obstructive sleep apnea, with apnea hypopnea index of < 1 (normal < 5). - But record also shows leak, which could affect comfort. Change mask and ask DME Supplier to re-run compliance report. 2. Increasing edema of legs, and weight increase may reflect change in pulmonary artery pressure and heart function. - Repeat echocardiogram to re-assess. - Further recommendations to follow this result. Thelma Singh MD, [facility] [address] [place] [address] P: [phone] F: [phone] [email or web address] Visit Notes: >> Yenifer Myers LPN jonh Sep 03, 2018 9:23 AM Status: Attested ROS: General: Generally feels well, recent weight gain due to decrease in activity with groin/hip injury. Reports her exertional tolerance is down. Appetite good. Eyes, Ears, nose, throat: denies post nasal drip. denies rhinorrhea. denies purulent nasal discharge. denies epistaxis. occasional hoarseness. Vision stable. Cardiac: denies angina, notes edema, denies orthopnea. GI: denies heartburn. denies dysphagia. denies diarrhea. Uro/INFORMATION BROKER: denies dysuria. denies hesitancy. denies nocturia. Menses: post menopausal Musculoskeletal: notes groin and hip pain. Currently attending PT. Neuro: denies headache, denies focal weakness. denies tremor. Skin: denies rash. Otherwise negative. Follow Up: Discussed this visit Follow-up and Disposition History Recorded Encounter Status:Closed by THELMA SINGH MD on 09/30/18 PROGRESS Observed: 08/26/2018 Status: COMPLETED Source: [place] 10:30 AM [facility] REPOSITORY [facility] ID: [id number] Author: Sofiya (Pt) Lucia Service: (none) Author Type: Physical Therapist Type: Progress Notes Filed: 08/26/2018 10:37 AM Note Text: Episode Visit Count: 13 Therapist That Will Oversee The Plan Of Care: Sofiya Myers PT Start of Care Date: 04/12/18 Onset Date: 02/21/18 Plan of Care Certification Date: 08/13/18 Patient Identified by Name and Date of : Yes REHABILITATION AND SPORTS THERAPY PHYSICAL THERAPY TREATMENT NOTE ASSESSMENT: Venice Croft demonstrated no change in L groin sx after therapy. Patient with an improved STS time from mat table today vs last visit. She improved by 6 sec but continues to have sharp pain in the groin every time she stands. The patient will continue to benefit from continued skilled physical therapy for ther ex and manual. PLAN FOR NEXT VISIT: Recumbent bike and then add standing exercises. Add green or blue band to hooklying B ER SUBJECTIVE: Prolonged standing (ie. 60 minutes) caused increased pain in L groin and L buttock. Patient is gaining weight like crazy and doesn't know why. Pain Score: (2-3/10 sitting and 3-4/10 walking) Pain Location: Groin - Left;Buttocks - Left Description: Sharp;Aching Frequency: Intermittent Post Treatment Pain Score: No Change OBJECTIVE MEASURES WITH LEVEL OF FUNCTION: Functional Performance Test Results 5 Times Sit to Stand Test : 15 sec (sharpness everytime stood in L groin) TREATMENT: Therapeutic Exercise: 3: Seated lumbar flexion 10 sec, 3x (increased pain in groin) 5: Tried SLR on L but unable to lift her L leg. 6: Hooklying lumbar rotation 10 sec holds, 6x each 7: Hooklying pelvic tilts 3x15 9: Supine L hip ABD with sliding board 2x15 in pain free range 10: Seated Recumbent Stepper Seat 16, level 1.5, arms 5, 6 minutes. Took subjective (took subjective) 11: SAQ on L 3x15 13: Standing hip ABD, Flexion, extension, CW/CCW cirlces x15, each leg 14: Supine Piriformis stretch bringing knee towards opposite shoulder, 10 sec hold, 3x each side 17: Supine L hip flexor stretch letting leg hang over edge of bed, 10 sec, 6x (patient needed help to lift her leg) 18: Hooklying Bilateral ER 3x15 Skilled Intervention: Patient was educated in proper exercise technique and purpose for exercises. Skilled judgment was provided in selection of appropriate interventions. Manual Therapy: 2: L leg traction with inferior glide (to help improve hip ABD) with intermittent pulling and oscillaltion 8 minutes. Skilled Intervention: Manual skills to improve joint mobility, ROM, and decrease pain. Utilized anatomy knowledge of the therapist, and assessment of patient's response to intervention. Billing: [facility]: Therapeutic Exercise ([id number]): 1:1 time: 32 minutes (2 units: 23-37 mins) Manual Therapy (36538): 1:1 time: 8 minutes (1 unit: 8-22 mins) Total time: 40 minutes Sofiya Myers PT CNTHERAPY Observed: 08/22/2018 Status: COMPLETED Source: [place] 2:45 PM [facility] REPOSITORY OT/PT/Speech Visit (PTWS) VENICE CROFT ([id number]) 1945 F Date Time Provider Department 08/22/18 2:45 PM SOFIYA MYERS (PT) PTWS Date Time Provider Department Center 08/22/2018 2:45 PM [id number], DIANA (PT)PTWS [facility] Reason for Visit: Physical Therapy [503] Primary Visit Diagnosis:Pain in left hip [M25.552] Other Visit Diagnosis:Pain in the groin, left [R10.32] Allergies As of Date: 08/22/2018 Noted Allergy Reaction DANIEL INHIBITORS 06/15/2005 7 - Swelling Comments: Angioedema. Lips. LIPITOR (ATORVASTATIN CALCIUM) 06/15/2005 Comments: Muscle aches PANAFIL ([id number]*08/18/2005 5 - Intolerance Comments: ? AMPICILLIN 06/15/2005 2 - Rash Comments: Bilateral arms. DARVOCET-N 100 (PROPOXYPHENE N-AC*01/31/2010 1 - Mental Status Change 14 - Other: See Comments Comments: Dizziness. PERCOCET (OXYCODONE-ACETAMINOPHEN)01/31/2010 1 - Mental Status Change Date Reviewed: 08/01/2018 Reviewed by: John Vance Ma - Fully Assessed Prescriptions as of 08/22/2018 Sig: SIMVASTATIN 20 MG TABLET TAKE 0.5 TABLETS BY MOUTH MATTHEW* CETIRIZINE 10 MG TABLET Take 1 tablet by mouth once d* COMPOUNDED PRESCRIPTION KNEE HIGH COMPRESSION STOCKIN* HYDROCHLOROTHIAZIDE 25 MG TAB* TAKE 0.5 TABLETS BY MOUTH ONC* FLUTICASONE 50 MCG/ACTUATION * Use 2 Sprays in each nostril * MUCINEX DM ORAL Take by mouth twice daily. LANSOPRAZOLE 15 MG CAPSULE,DE* Take 2 capsules by mouth ever* ASPIRIN 81 MG TABLET,DELAYED * Take 1 tablet by mouth once d* CPAP Decrease the Bilevel setting * COMPOUNDED PRESCRIPTION Home Oxygen @ 2L-4L Nasal Can* CHOLECALCIFEROL (VITAMIN D3) * Take one(1) tablet two(2) corinne* Progress Notes: Sofiya Myers, WILLIS 08/26/2018 10:37 AM Signed Episode Visit Count: 13 Therapist That Will Oversee The Plan Of Care: oSfiya Myers PT Start of Care Date: 04/12/18 Onset Date: 02/21/18 Plan of Care Certification Date: 08/13/18 Patient Identified by Name and Date of : Yes REHABILITATION AND SPORTS THERAPY PHYSICAL THERAPY TREATMENT NOTE ASSESSMENT: Venice Pelaez Zeke demonstrated no change in L groin sx after therapy. Patient with an improved STS time from mat table today vs last visit. She improved by 6 sec but continues to have sharp pain in the groin every time she stands. The patient will continue to benefit from continued skilled physical therapy for ther ex and manual. PLAN FOR NEXT VISIT: Recumbent bike and then add standing exercises. Add green or blue band to hooklying B ER SUBJECTIVE: Prolonged standing (ie. 60 minutes) caused increased pain in L groin and L buttock. Patient is gaining weight like crazy and doesn't know why. Pain Score: (2-3/10 sitting and 3-4/10 walking) Pain Location: Groin - Left;Buttocks - Left Description: Sharp;Aching Frequency: Intermittent Post Treatment Pain Score: No Change OBJECTIVE MEASURES WITH LEVEL OF FUNCTION: Functional Performance Test Results 5 Times Sit to Stand Test : 15 sec (sharpness everytime stood in L groin) TREATMENT: Therapeutic Exercise: 3: Seated lumbar flexion 10 sec, 3x (increased pain in groin) 5: Tried SLR on L but unable to lift her L leg. 6: Hooklying lumbar rotation 10 sec holds, 6x each 7: Hooklying pelvic tilts 3x15 9: Supine L hip ABD with sliding board 2x15 in pain free range 10: Seated Recumbent Stepper Seat 16, level 1.5, arms 5, 6 minutes. Took subjective (took subjective) 11: SAQ on L 3x15 13: Standing hip ABD, Flexion, extension, CW/CCW cirlces x15, each leg 14: Supine Piriformis stretch bringing knee towards opposite shoulder, 10 sec hold, 3x each side 17: Supine L hip flexor stretch letting leg hang over edge of bed, 10 sec, 6x (patient needed help to lift her leg) 18: Hooklying Bilateral ER 3x15 Skilled Intervention: Patient was educated in proper exercise technique and purpose for exercises. Skilled judgment was provided in selection of appropriate interventions. Manual Therapy: 2: L leg traction with inferior glide (to help improve hip ABD) with intermittent pulling and oscillaltion 8 minutes. Skilled Intervention: Manual skills to improve joint mobility, ROM, and decrease pain. Utilized anatomy knowledge of the therapist, and assessment of patient's response to intervention. Billing: [facility]: Therapeutic Exercise ([id number]): 1:1 time: 32 minutes (2 units: 23-37 mins) Manual Therapy ([id number]): 1:1 time: 8 minutes (1 unit: 8-22 mins) Total time: 40 minutes Sofiya Myers PT PROGRESS Observed: 08/13/2018 Status: COMPLETED Source: [place] 10:24 AM [facility] REPOSITORY [facility] ID: [id number] Author: Sofiya (Pt) Lucia Service: (none) Author Type: Physical Therapist Type: Progress Notes Filed: 08/13/2018 1:07 PM Note Text: Episode Visit Count: 12 Therapist That Will Oversee The Plan Of Care: Sofiya Myers PT Start of Care Date: 04/12/18 Onset Date: 02/21/18 Plan of Care Certification Date: 08/13/18 Patient Identified by Name and Date of : Yes REHABILITATION AND SPORTS THERAPY PHYSICAL THERAPY PROGRESS REPORT PLAN OF CARE UPDATE: Assessment: Venice Croft exhibits improvements in being able to get her leg into bed and being able to drive in her SUV, She continues to be limited with rising from a chair and walking and standing on L leg when in the shower as it causes her to have sharp L groin pain. Sometimes more movement makes her feel better and sometimes it makes her L groin feel worse. She is progressing slower than expected towards her therapy goals as demonstrated by: pain levels and documented subjective information on progress. Plan is to try another 4 weeks of PT, and if she has no change then recommending consideration of a second opinion for an ortho eval or injection as Dr. Cooper recommended. She will benefit from continued skilled therapy requiring for ther ex and manual in order to improve L groin/thigh pain. Functional gains: Improved ability to lift L leg into bed and get into her SUV Improved STS from mat table Goals updated on 08/13/2018. [place] in home exercise program.--MET for current HEP Patient will decrease pain rating by 2 points to meet minimal clinical important difference for numeric pain rating scale. (Goal: 2/10 with sitting and 4/10 with walking--MET for both Perform sleeping in bed without pain.--MET Demonstrate improvement on functional score: Patient will improve his/her AM-PAC T-scale score by 4 points to indicate a Minimal Clinical Important Difference. (Goal: 49.55)--MET Walking without an assistive device.--Not MET Patient with improve 5x STS to 20 sec to show MCID --Progressing Patient will be able to get into and out of a car without pain.--Progressing Goal Added 08/13/18: Patient will report easier to stand on L leg to lift R leg to place on bench in shower. G CODE REPORTING Based on clinical assessment and the score on the AM-PAC Scale Score Assessment Tool, the G code and corresponding severity modifiers are documented below. Evaluation: 04/12/2018 Current Status: Mobility: Walking and Moving Around: G8978 CK 40-59% impaired Goal Status: Mobility: Walking and Moving Around: G8979 CK 40-59% Impaired Progress Report: 05/14/2018 Current Status: Mobility: Walking and Moving Around: G8978 CK 40-59% impaired Goal Status: Mobility: Walking and Moving Around: G8979 CK 40-59% impaired Progress Report: 06/11/2018 Current Status: Mobility: Walking and Moving Around: G8978 CK 40-59% impaired Goal Status: Mobility: Walking and Moving Around: G8979 CK 40-59% impaired Progress Report: 07/16/2018 Current Status: Mobility: Walking and Moving Around: G8978 CK 40-59% impaired Goal Status: Mobility: Walking and Moving Around: G89[facility] 20-39% impaired Progress Report: 08/13/2018 Current Status: Mobility: Walking and Moving Around: G89[facility] 20-39% impaired Goal Status: Mobility: Walking and Moving Around: G8979 20-39% impaired Planned Interventions, Frequency, and Duration: 1x/week, 4 weeks Total Number of Visits Planned: 16 Patient to be seen for Therapeutic exercise;Manual therapy;Patient/Family/Caregiver Education;Modalities;Self- detention management;Functional training;General Conditioning;Gait Training;Neuromuscular re-education;Therapeutic activitiesUltrasound PLAN FOR NEXT VISIT: Try standing 4-way hip exercise SUBJECTIVE: Doing the Left hamstring stretch everyday when she puts her socks on. Can lift the L leg now onto bed. Patient finds since she has been coming PT she has had difficulty placing weight on L leg to raise R leg to place on bench in shower to clean. Easier getting into SUV. Patient is trying to get up and move more throughout the day. Pain Score: (2-3/10 sitting and 3-4/10 walking) Pain Location: Groin - Left Description: Sharp;Aching Frequency: Intermittent Post Treatment Pain Score: 4/10 (Patient had more thigh pain standing then groin pain.) OBJECTIVE MEASURES WITH LEVEL OF FUNCTION: Functional Performance Test Results 30 Second Sit to Stand Test (reps): 7 reps 5 Times Sit to Stand Test : 21 sec (sharpness in L groin every time stood) Does better for hip flexion and hip abduction ROM using the sliding board TREATMENT: Therapeutic Exercise: 6: Hooklying lumbar rotation 10 sec holds, 6x each 7: Hooklying pelvic tilts 2x15 8: LEFT heel slides with sliding board 2x15 9: Supine L hip ABD with sliding board 3x10 in small range 10: Seated Recumbent Stepper Seat 16, level 1.5, arms 5, 6 minutes. Talked about f/u 11: SAQ on L 3x15 (2nd set felt better than first. 3rd set better) 18: Hooklying Bilateral ER 2x10 19: Seated L hamstring stretch x6, 10x 20: Hooklying hip ABD with green band 3x10 Skilled Intervention: Patient was educated in proper exercise technique and purpose for exercises. Skilled judgment was provided in selection of appropriate interventions. Manual Therapy: 2: L leg traction (to help improve hip ABD) with intermittent pulling and oscillaltion 8 minutes. Skilled Intervention: Manual skills to improve joint mobility, ROM, and decrease pain. Utilized anatomy knowledge of the therapist, and assessment of patient's response to intervention. Billing: [facility]: Therapeutic Exercise ([id number]): 1:1 time: 37 minutes (2 units: 23-37 mins) Manual Therapy ([id number]): 1:1 time: 8 minutes (1 unit: 8-22 mins) Total time: 45 minutes Sofiya Myers PT CNTHERAPY Observed: 08/13/2018 Status: COMPLETED Source: [place] 10:00 AM [facility] REPOSITORY OT/PT/Speech Visit (PTWS) VENICE CROFT ([id number]) 1945 F Date Time Provider Department 08/13/18 10:00 AM SOFIYA MYERSPT) PTWS Date Time Provider Department Center 08/13/2018 10:00 AM [id number], DIANA (PT)PTWS [facility] Reason for Visit: PT Progress Note [1596] Primary Visit Diagnosis:Pain in left hip [M25.552] Other Visit Diagnosis:Pain in the groin, left [R10.32] Allergies As of Date: 08/13/2018 Noted Allergy Reaction DANIEL INHIBITORS 06/15/2005 7 - Swelling Comments: Angioedema. Lips. LIPITOR (ATORVASTATIN CALCIUM) 06/15/2005 Comments: Muscle aches PANAFIL ([id number]*08/18/2005 5 - Intolerance Comments: ? AMPICILLIN 06/15/2005 2 - Rash Comments: Bilateral arms. DARVOCET-N 100 (PROPOXYPHENE N-AC*01/31/2010 1 - Mental Status Change 14 - Other: See Comments Comments: Dizziness. PERCOCET (OXYCODONE-ACETAMINOPHEN)01/31/2010 1 - Mental Status Change Date Reviewed: 08/01/2018 Reviewed by: John Vance Ma - Fully Assessed Prescriptions as of 08/13/2018 Sig: SIMVASTATIN 20 MG TABLET TAKE 0.5 TABLETS BY MOUTH MATTHEW* CETIRIZINE 10 MG TABLET Take 1 tablet by mouth once d* COMPOUNDED PRESCRIPTION KNEE HIGH COMPRESSION STOCKIN* HYDROCHLOROTHIAZIDE 25 MG TAB* TAKE 0.5 TABLETS BY MOUTH ONC* FLUTICASONE 50 MCG/ACTUATION * Use 2 Sprays in each nostril * MUCINEX DM ORAL Take by mouth twice daily. LANSOPRAZOLE 15 MG CAPSULE,DE* Take 2 capsules by mouth ever* ASPIRIN 81 MG TABLET,DELAYED * Take 1 tablet by mouth once d* CPAP Decrease the Bilevel setting * COMPOUNDED PRESCRIPTION Home Oxygen @ 2L-4L Nasal Can* CHOLECALCIFEROL (VITAMIN D3) * Take one(1) tablet two(2) corinne* Progress Notes: Sofiya Myers PT 08/13/2018 1:07 PM Signed Episode Visit Count: 12 Therapist That Will Oversee The Plan Of Care: Sofiya Myers PT Start of Care Date: 04/12/18 Onset Date: 02/21/18 Plan of Care Certification Date: 08/13/18 Patient Identified by Name and Date of : Yes REHABILITATION AND SPORTS THERAPY PHYSICAL THERAPY PROGRESS REPORT PLAN OF CARE UPDATE: Assessment: Venice Croft exhibits improvements in being able to get her leg into bed and being able to drive in her SUV, She continues to be limited with rising from a chair and walking and standing on L leg when in the shower as it causes her to have sharp L groin pain. Sometimes more movement makes her feel better and sometimes it makes her L groin feel worse. She is progressing slower than expected towards her therapy goals as demonstrated by: pain levels and documented subjective information on progress. Plan is to try another 4 weeks of PT, and if she has no change then recommending consideration of a second opinion for an ortho eval or injection as Dr. Cooper recommended. She will benefit from continued skilled therapy requiring for ther ex and manual in order to improve Lgroin/thigh pain. Functional gains: Improved ability to lift L leg into bed and get into her SUV Improved STS from mat table Goals updated on 08/13/2018. [place] in home exercise program.--MET for current HEP Patient will decrease pain rating by 2 points to meet minimal clinical important difference for numeric pain rating scale. (Goal: 2/10 with sitting and 4/10 with walking--MET for both Perform sleeping in bed without pain.--MET Demonstrate improvement on functional score: Patient will improve his/her AM-PAC T-scale score by 4 points to indicate a Minimal Clinical Important Difference. (Goal: 49.55)--MET Walking without an assistive device.--Not MET Patient with improve 5x STS to 20 sec to show MCID --Progressing Patient will be able to get into and out of a car without pain.--Progressing Goal Added 08/13/18: Patient will report easier to stand on L leg to lift R leg to place on bench in shower. G CODE REPORTING Based on clinical assessment and the score on the AM-PAC Scale Score Assessment Tool, the G code and corresponding severity modifiers are documented below. Evaluation: 04/12/2018 Current Status: Mobility: Walking and Moving Around: G8978 CK 40-59% impaired Goal Status: Mobility: Walking and Moving Around: G8979 CK 40-59% Impaired Progress Report: 05/14/2018 Current Status: Mobility: Walking and Moving Around: G8978 CK 40-59% impaired Goal Status: Mobility: Walking and Moving Around: G8979 CK 40-59% impaired Progress Report: 06/11/2018 Current Status: Mobility: Walking and Moving Around: G8978 CK 40-59% impaired Goal Status: Mobility: Walking and Moving Around: G8979 CK 40-59% impaired Progress Report: 07/16/2018 Current Status: Mobility: Walking and Moving Around: G8978 CK 40-59% impaired Goal Status: Mobility: Walking and Moving Around: G8979 20-39% impaired Progress Report: 08/13/2018 Current Status: Mobility: Walking and Moving Around: G8978 20-39% impaired Goal Status: Mobility: Walking and Moving Around: G8979 20-39% impaired Planned Interventions, Frequency, and Duration: 1x/week, 4 weeks Total Number of Visits Planned: 16 Patient to be seen for Therapeutic exercise;Manual therapy;Patient/Family/Caregiver Education;Modalities;Self- detention management;Functional training;General Conditioning;Gait Training;Neuromuscular re-education;Therapeutic activitiesUltrasound PLAN FOR NEXT VISIT: Try standing 4-way hip exercise SUBJECTIVE: Doing the Left hamstring stretch everyday when she puts her socks on. Can lift the L leg now onto bed. Patient finds since she has been coming PT she has had difficulty placing weight on L leg to raise R leg to place on bench in shower to clean. Easier getting into SUV. Patient is trying to get up and move more throughout the day. Pain Score: (2-3/10 sitting and 3-4/10 walking) Pain Location: Groin - Left Description: Sharp;Aching Frequency: Intermittent Post Treatment Pain Score: 4/10 (Patient had more thigh pain standing then groin pain.) OBJECTIVE MEASURES WITH LEVEL OF FUNCTION: Functional Performance Test Results 30 Second Sit to Stand Test (reps): 7 reps 5 Times Sit to Stand Test : 21 sec (sharpness in L groin every time stood) Does better for hip flexion and hip abduction ROM using the sliding board TREATMENT: Therapeutic Exercise: 6: Hooklying lumbar rotation 10 sec holds, 6x each 7: Hooklying pelvic tilts 2x15 8: LEFT heel slides with sliding board 2x15 9: Supine L hip ABD with sliding board 3x10 in small range 10: Seated Recumbent Stepper Seat 16, level 1.5, arms 5, 6 minutes. Talked about f/u 11: SAQ on L 3x15 (2nd set felt better than first. 3rd set better) 18: Hooklying Bilateral ER 2x10 19: Seated L hamstring stretch x6, 10x 20: Hooklying hip ABD with green band 3x10 Skilled Intervention: Patient was educated in proper exercise technique and purpose for exercises. Skilled judgment was provided in selection of appropriate interventions. Manual Therapy: 2: L leg traction (to help improve hip ABD) with intermittent pulling and oscillaltion 8 minutes. Skilled Intervention: Manual skills to improve joint mobility, ROM, and decrease pain. Utilized anatomy knowledge of the therapist, and assessment of patient's response to intervention. Billing: [facility]: Therapeutic Exercise ([id number]): 1:1 time: 37 minutes (2 units: 23-37 mins) Manual Therapy ([id number]): 1:1 time: 8 minutes (1 unit: 8-22 mins) Total time: 45 minutes Sofiya Myers PT PROGRESS Observed: 08/10/2018 Status: COMPLETED Source: [place] 12:05 [facility] REPOSITORY O ID: [id number] Author: Sofiya Myers Service: (none) Author Type: Physical Therapist Type: Progress Notes Filed: 08/10/2018 12:08 PM Note Text: Episode Visit Count: 11 Therapist That Will Oversee The Plan Of Care: Sofiya Myers PT Start of Care Date: 04/12/18 Onset Date: 02/21/18 Plan of Care Certification Date: 05/14/18 Patient Identified by Name and Date of : Yes REHABILITATION AND SPORTS THERAPY PHYSICAL THERAPY TREATMENT NOTE ASSESSMENT: Venice Croft demonstrated improvements in no L hip catching after perform 5 consecutive STS. She is slowly getting better. Encouraged more movement during the day and to add hamstring stretching to her HEP. The patient will continue to benefit from continued skilled physical therapy for ther ex and manual. PLAN FOR NEXT VISIT: POC update: 08/13/18 and NEW Certification needed. G tab completed 08/06/18. Provided copy of hamstring stretch exercise as forgot to provide. SUBJECTIVE: Patient Ccould not perform hip flexor stretch well because of her bed set up. Dr. Chairez recommended to continue with skilled PT. Is now able to get up into her SUV, which is pleasing to patient as she likes to be able to sit up higher when driving in a vehicle. Pain Score: 3/10 Pain Location: Groin - Left;Thigh - Left Description: Sharp Frequency: Intermittent (standing from a seated position) Post Treatment Pain Score: (pt stated she felt worked over) OBJECTIVE MEASURES WITH LEVEL OF FUNCTION: Patient required assistance lifting her L leg onto mat table. TREATMENT: Therapeutic Exercise: 4: Standing hip flexion stretch 10 sec holds, 3x (pain in L groin returning to standing. ) 6: Hooklying lumbar rotation 10 sec holds, 6x each 7: Hooklying pelvic tilts 2x15 8: LEFT heel slides 2x15 9: Supine L hip ABD 3x10 in small range 10: Seated Recumbent Stepper Seat 16, level 1, arms 5, 5 minutes. Collected subjective. 11: SAQ on L 3x15 (felt in L thigh towards the end of the set. 2nd set better.) 12: Seated LAQ 2x15, B 16: STS from lowest x10; only had a catch the first 5x and the last 5 no catching 17: Supine L hip flexor stretch 10 sec, 6x (patient needed help to lift leg up) 19: *Seated L hamstring stretch x6, 10x Skilled Intervention: Patient was educated in proper exercise technique and purpose for exercises. Reviewed and educated patient on additions/changes for home exercise program as above (*) Patient education as noted. Manual Therapy: 2: L leg traction (to help improve hip ABD) with intermittent pulling and oscillaltion 8 minutes. 6: Manual to L hip flexor with tigger point release, STM with hands Skilled Intervention: Manual skills to improve joint mobility, ROM, and decrease pain. Utilized anatomy knowledge of the therapist, and assessment of patient's response to intervention. Billing: [facility]: Therapeutic Exercise ([id number]): 1:1 time: 35 minutes (2 units: 23-37 mins) Manual Therapy ([id number]): 1:1 time: 15 minutes (1 unit: 8-22 mins) Total time: 50 minutes Sofiya Myers PT CNTHERAPY Observed: 08/06/2018 Status: COMPLETED Source: [place] 10:00 AM [facility] REPOSITORY OT/PT/Speech Visit (PTWS) VENICE CROFT ([id number]) 1945 F Date Time Provider Department 08/06/18 10:00 AM SOFIYA MYERSPT) PTWS Date Time Provider Department Center 08/06/2018 10:00 AM [id number], DIANA (PT)PTWS [facility] Reason for Visit: Physical Therapy [503] Primary Visit Diagnosis:Pain in left hip [M25.552] Other Visit Diagnosis:Pain in the groin, left [R10.32] Allergies As of Date: 08/06/2018 Noted Allergy Reaction DANIEL INHIBITORS 06/15/2005 7 - Swelling Comments: Angioedema. Lips. LIPITOR (ATORVASTATIN CALCIUM) 06/15/2005 Comments: Muscle aches PANAFIL ([id number]*08/18/2005 5 - Intolerance Comments: ? AMPICILLIN 06/15/2005 2 - Rash Comments: Bilateral arms. DARVOCET-N 100 (PROPOXYPHENE N-AC*01/31/2010 1 - Mental Status Change 14 - Other: See Comments Comments: Dizziness. PERCOCET (OXYCODONE-ACETAMINOPHEN)01/31/2010 1 - Mental Status Change Date Reviewed: 08/01/2018 Reviewed by: John Vance Ma - Fully Assessed Prescriptions as of 08/06/2018 Sig: SIMVASTATIN 20 MG TABLET TAKE 0.5 TABLETS BY MOUTH MATTHEW* CETIRIZINE 10 MG TABLET Take 1 tablet by mouth once d* COMPOUNDED PRESCRIPTION KNEE HIGH COMPRESSION STOCKIN* HYDROCHLOROTHIAZIDE 25 MG TAB* TAKE 0.5 TABLETS BY MOUTH ONC* FLUTICASONE 50 MCG/ACTUATION * Use 2 Sprays in each nostril * MUCINEX DM ORAL Take by mouth twice daily. LANSOPRAZOLE 15 MG CAPSULE,DE* Take 2 capsules by mouth ever* ASPIRIN 81 MG TABLET,DELAYED * Take 1 tablet by mouth once d* CPAP Decrease the Bilevel setting * COMPOUNDED PRESCRIPTION Home Oxygen @ 2L-4L Nasal Can* CHOLECALCIFEROL (VITAMIN D3) * Take one(1) tablet two(2) corinne* Progress Notes: Sofiya Myers PT 08/10/2018 12:08 PM Signed Episode Visit Count: 11 Therapist That Will Oversee The Plan Of Care: Sofiya Myers PT Start of Care Date: 04/12/18 Onset Date: 02/21/18 Plan of Care Certification Date: 05/14/18 Patient Identified by Name and Date of : Yes REHABILITATION AND SPORTS THERAPY PHYSICAL THERAPY TREATMENT NOTE ASSESSMENT: Venice Croft demonstrated improvements in no L hip catching after perform 5 consecutive STS. She is slowly getting better. Encouraged more movement during the day and to add hamstring stretching to her HEP. The patient will continue to benefit from continued skilled physical therapy for ther ex and manual. PLAN FOR NEXT VISIT: POC update: 08/13/18 and NEW Certification needed. G codes completed 08/06/18. Provided copy of hamstring stretch exercise as forgot to provide. SUBJECTIVE: Patient Ccould not perform hip flexor stretch well because of her bed set up. Dr. Chairez recommended to continue with skilled PT. Is now able to get up into her SUV, which is pleasing to patient as she likes to be able to sit up higher when driving in a vehicle. Pain Score: 3/10 Pain Location: Groin - Left;Thigh - Left Description: Sharp Frequency: Intermittent (standing from a seated position) Post Treatment Pain Score: (pt stated she felt worked over) OBJECTIVE MEASURES WITH LEVEL OF FUNCTION: Patient required assistance lifting her L leg onto mat table. TREATMENT: Therapeutic Exercise: 4: Standing hip flexion stretch 10 sec holds, 3x (pain in L groin returning to standing. ) 6: Hooklying lumbar rotation 10 sec holds, 6x each 7: Hooklying pelvic tilts 2x15 8: LEFT heel slides 2x15 9: Supine L hip ABD 3x10 in small range 10: Seated Recumbent Stepper Seat 16, level 1, arms 5, 5 minutes. Collected subjective. 11: SAQ on L 3x15 (felt in L thigh towards the end of the set. 2nd set better.) 12: Seated LAQ 2x15, B 16: STS from lowest x10; only had a catch the first 5x and the last 5 no catching 17: Supine L hip flexor stretch 10 sec, 6x (patient needed help to lift leg up) 19: *Seated L hamstring stretch x6, 10x Skilled Intervention: Patient was educated in proper exercise technique and purpose for exercises. Reviewed and educated patient on additions/changes for home exercise program as above (*) Patient education as noted. Manual Therapy: 2: L leg traction (to help improve hip ABD) with intermittent pulling and oscillaltion 8 minutes. 6: Manual to L hip flexor with tigger point release, STM with hands Skilled Intervention: Manual skills to improve joint mobility, ROM, and decrease pain. Utilized anatomy knowledge of the therapist, and assessment of patient's response to intervention. Billing: [facility]: Therapeutic Exercise ([id number]): 1:1 time: 35 minutes (2 units: 23-37 mins) Manual Therapy ([id number]): 1:1 time: 15 minutes (1 unit: 8-22 mins) Total time: 50 minutes Sofiya Myers PT COMP METABOLIC PANEL Collected: 08/01/2018 Status: F Source: [place] 10:20 AM [facility] REPOSITORY TYPE CODE TESTS RESULT OUT OF REFERENCE UNITS RANGE LAB TP 6.3-8.0 g/dL Protein, Total 7.2 LAB ALB 3.9-4.9 g/dL Albumin 4.2 LAB CA 8.5-10.2 mg/dL Calcium, Total 9.3 LAB TBIL 0.2-1.3 mg/dL Bilirubin, Total 0.5 LAB ALKP 34-123 U/L Alkaline Phosphatase 62 LAB AST 13-35 U/L AST 16 LAB GLU 74-99 mg/dL Glucose High 100 Result Comment: The [place] Diabetes Association (ADA) provides guidance for cutoff values for fasting glucose and random glucose. The ADA defines fasting as no caloric intake for at least 8 hours. Fas ting plasma glucose results between 100 to 125 mg/dL indicate increased risk for diabetes (prediabetes). Fasting plasma glucose results greater than or equal to 126 mg/dL meet the criteria for diagnosis of diabetes. In the absence of unequivocal hyperglycemia, results should be confirmed by repeat testing. In a patient with classic symptoms of hyperglycemia or hyperglycemic crisis, random plasma glucose results greater than or equal to 200 mg/dL meet the criteria for diagnosis of diabetes. Reference: Standards of Medical Care in Diabetes 2016, Canadian Diabetes Association. Diabetes Care. 2016.39(Suppl 1). LAB BUN 7-21 mg/dL BUN 17 LAB CRET 0.58-0.96 mg/dL Low Creatinine 0.52 LAB NA 136-144 mmol/L Sodium 138 LAB K 3.7-5.1 mmol/L Potassium 4.2 LAB CL 97-105 mmol/L Low Chloride 94 LAB CO2 22-30 mmol/L CO2 High 31 LAB AGAP 9-18 mmol/L Anion Gap 13 LAB ALT 7-38 U/L ALT 10 LAB GFRAA eGFR- Amer. >60 LAB GFRNAA . eGFR-All Other Races >60 Result Comment: eGFR (Estimated GFR) Units of measure: mL/min/1.73 meters squared eGFR is derived from the reexpressed MDRD Study equation using the following parameters: serum creatinine, age, gender and race. The creatinine assay has been calibrated to be traceable to IDMS. An eGFR <60 mL/min/1.73m2 for >3 months is consistent with chronic kidney disease. Refer to KDOQI guidelines for clinical interpretation. In patients with unstable renal function, e.g. those with acute kidney injury, the eGFR may not accurately reflect actual GFR. Performed By: #### CMP #### [facility] [address] [place], [place] [address] CNOV Observed: 08/01/2018 Status: COMPLETED Source: [place] 9:40 AM [facility] REPOSITORY Office Visit (FAMPWS) VENICE CROFT ([id number]) 1945 F Date Time Provider Department 08/01/18 9:40 AM YOLANDE CHAIREZ) FAMPWS During your visit today, we recorded the following information about you: Pulse Respiration Blood pressure Weight 78/minute 12/minute 136/76 133.4 kg Yolande Chairez MD 08/01/2018 10:41 AM Signed Chief Complaint Patient presents with: 4 month follow up HPI Venice Croft is a 73 year old female who presents here today for 4 month follow up visit. Left hip pain: xray after last OV shows arthritis changes. Recommended patient follow up with ortho and PT for further evaluation. Ortho Dr. Cooper recommended weight loss, possible hip injection, and PT. Has been to PT for total of 10 out of 12 visits and is improving. Last PT visit pain was 3/10. Taking ASA 325 mg and tylenol arthritis once daily for pain. Morbid obesity: discussed improved diet, smaller portions, more vegetables and lean proteins. Exercise as able at home and with PT. Discussed low impact. HTN: well controlled on current regimen. Due for repeat CMP. JUSTINA: using CPAP nightly, working well on current settings. Pulm HTN: following up with Dr. Singh, continuing use of CPAP and home oxygen daily. Up to 6 L via NC while ambulating, 3 L at rest. Requesting order for screening mammogram. Past medical history, appointments, medications, allergies reviewed. 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 Boyd - Fracture - Gastroparesis - GERD (gastroesophageal reflux disease) - History of poliomyelitis age 8 - History of staph infection Seeing Dr. Rinaldi yearly, on doxycycline - Impaired glucose tolerance test - Morbid obesity with BMI of 50.0-59.9, adult ([facility]) - On home oxygen therapy - Open wound of knee, leg (except thigh), and ankle, complicated - JUSTINA (obstructive sleep apnea) uses bipap nightly - Pulmonary hypertension ([facility]) Seeing Dr. Singh - Pure hypercholesterolemia - Unspecified essential hypertension - Venous stasis dermatitis Previous Surgical History PAST SURGICAL HISTORY Procedure Laterality Date - BX OF BREAST; INCISIONAL Bx of breast, incisional multiple, benign - COLONOSCOP W/ OR W/O [facility] SPEC N/A 11/14/2016 repeat in 2 years - COLONOSCOPY W/BX 10/27/08 - DANDC, DIAG AND/OR THERAPEUTIC - EMERGENCY TRACHEOTOMY Polio at the age of 8 - KNEE SCOPE,DIAGNOSTIC 1990s Arthroscopy, knee RIGHT - REMOVE CATARACT, INSERT LENS, INTRACAPSUL Bilateral 05/2016 - REMOVE TONSILS/ADENOIDS,<12 Y/O - TOTAL HIP REPLACEMENT 06/2007 Hip replacement, total right - TOTAL KNEE REPLACEMENT 12/2007 Knee replacement, total knee - TOTAL KNEE REPLACEMENT 04/24 Knee replacement, total Family History FAMILY HISTORY Problem Relation Age of Onset - Diabetes Mother - Cancer Mother Bladder - Stroke Mother - Diabetes Maternal Aunt - Diabetes Maternal Uncle HEART DISEASE - Heart Maternal Grandmother Patient Allergies ALLERGIES Allergen Reactions - Daniel Inhibitors Swelling Angioedema. Lips. - Lipitor [Atorvastat* Muscle aches - Panafil [Papain-Ure* Intolerance ? - Ampicillin Rash Bilateral arms. - Darvocet-N 100 [Pro* Mental Status Change, Other: See Comments Dizziness. - Percocet [Oxycodone* Mental Status Change Current Medications Current Outpatient Prescriptions on File Prior to Visit: simvastatin (ZOCOR) 20 mg tablet TAKE 0.5 TABLETS BY MOUTH DAILY AT BEDTIME. cetirizine (ZYRTEC) 10 mg tablet Take 1 tablet by mouth once daily. methylPREDNISolone (MEDROL, BENJIE,) 4 mg Dose-Pack As Instructed per package (Patient not taking: Reported on 05/02/2018 ) meloxicam (MOBIC) 15 mg tablet Take 1 tablet by mouth once daily. Take with food. (Patient not taking: Reported on 07/31/2018 ) Compression Knee Highs KNEE HIGH COMPRESSION STOCKINGS 30- 40 MM. DX: EDEMA hydroCHLOROthiazide (HYDRODIURIL, ESIDRIX) 25 mg tablet TAKE 0.5 TABLETS BY MOUTH ONCE DAILY. fluticasone (FLONASE) 50 mcg/actuation nasal spray Use 2 Sprays in each nostril once daily. GUAIFENESIN/DEXTROMETHORPHAN (MUCINEX DM ORAL) Take by mouth twice daily. lansoprazole (PREVACID) 15 mg capsule Take 2 capsules by mouth every evening. aspirin, enteric coated (ADULT LOW DOSE ASPIRIN) 81 mg EC tablet Take 1 tablet by mouth once daily. CPAP Decrease the Bilevel setting to 13/8 cm h20 with 3 LPM of oxygen. COMPOUNDED PRESCRIPTION Home Oxygen @ 2L-4L Nasal Canula - continuous Diagnoses: Hypoxia 799.02, Dyspnea 786.09, Pulmonary Hypertension 416.8 Cholecalciferol, Vitamin D3, (VITAMIN D) 2,000 unit ORAL Cap Take one(1) tablet two(2) times daily. No current facility-administered medications on file prior to visit. Social History Social History Marital status: Single Spouse name: Years of education: Number of children: 0 Occupational History Occupation Employer Comment Retired [employer] Social History Main Topics Smoking status: Never Smoker Smokeless tobacco: Never Used Comment: Parents non-smokers. Alcohol use: No Drug use: No Sexual activity: No Review of Symptoms REVIEW OF SYSTEMS GENERAL: No weight loss, malaise or fevers RESPIRATORY: Negative for cough, hemoptysis, wheezing, COPD, dyspnea or shortness of breath CARDIOVASCULAR: Negative for chest pain, leg swelling, hypertension, CHF or palpitations GI: No nausea, vomiting, or diarrhea SKIN: Negative for lesions, rash, and itching EXAM: BP 136/76 Pulse 78 Resp 12 Wt 133.4 kg (294 lb) SpO2 96% BMI 52.08 kg/m? General Appearance: Well appearing, alert, in no acute distress, well-hydrated, well nourished.. Skin: Skin color, texture, turgor normal, no suspicious rashes or lesions. Lungs: lungs clear to auscultation. No wheezing, rhonchi, rales. Heart: RRR without murmur, gallop, or rubs. No ectopy. Abdomen: Normal abdominal exam, Abdomen soft, non-tender. Bowel sounds normal. No masses, organomegaly. Extremities: No deformities, edema, skin discoloration, clubbing or cyanosis. Good capillary refill. . Health Maintenance List BP CONTROLLED (<130/80) due on 1961 PAP EVERY 3 YEARS (65-80 YEARS OLD) due on 11/01/2008 DTAP,TDAP,TD(1 - Tdap) due on 11/25/2008 COLORECTAL CANCER SCREENING,SEE MODIFIER due on 01/17/2019 ANNUAL PCP TEAM CHRONIC DISEASE VISIT due on 04/01/2019 DIABETES SCREEN due on 03/26/2021 LIPID SCREEN due on 03/26/2023 BONE DENSITY Completed ADULT PREVNAR-13 Completed INFLUENZA Completed PNEUMOVAX AGE 65 AND OVER WITH 5YR LOOKBACK Completed Data reviewed Component Latest Ref Rng AND Units 04/06/2017 07/28/2017 11/28/2017 03/26/2018 Protein, Total 6.3 - 8.0 g/dL 7.0 7.5 7.7 Albumin 3.9 - 4.9 g/dL 4.0 4.1 4.2 Calcium 8.5 - 10.2 mg/dL 8.2 (L) 9.2 8.9 Bilirubin, Total 0.2 - 1.3 mg/dL 0.4 0.4 0.4 Alkaline Phosphatase 32 - 117 U/L 51 56 54 AST 13 - 35 U/L 18 22 19 Glucose 74 - 99 mg/dL 109 (H) 114 (H) 97 BUN 7 - 21 mg/dL 16 12 13 Creatinine 0.58 - 0.96 mg/dL 0.60 0.65 0.55 (L) Sodium 136 - 144 mmol/L 140 144 138 Potassium 3.7 - 5.1 mmol/L 4.4 4.2 4.0 Chloride 97 - 105 mmol/L 95 (L) 96 (L) 92 (L) CO2 22 - 30 mmol/L 31 (H) 37 (H) 36 (H) Anion Gap 9 - 18 mmol/L 14 11 10 ALT 7 - 38 U/L 12 15 14 eGFR- >60 >60 >60 eGFR-All Other Races . >60 >60 >60 Triglyceride <150 mg/dL 120 75 Cholesterol, Total <200 mg/dL 191 209 (H) HDL Cholesterol >39 mg/dL 75 96 VLDL Cholesterol <30 mg/dL 24 15 LDL Cholesterol <100 mg/dL 92 98 Fasting Time hrs 3 11 TC:HDL Ratio <5.10 2.55 2.18 LDL:HDL Ratio <2.54 1.23 1.02 Non HDL Cholesterol <130 mg/dL 116 113 Hemoglobin A1C 4.3 - 5.6 % 5.2 5.3 Estimated Average Glucose mg/dL 103 105 TSH 0.400 - 5.500 uU/mL 2.920 Vitamin D 25 Hydroxy 31.0 - 80.0 ng/mL 39.3 ASSESSMENT/PLAN: 1. Pain in left hip - ICD9: 719.45, ICD10: M25.552 (primary diagnosis) 2/2 OA. Continue PT. Work on weight loss. Continue OTC analgesics. 2. Morbid obesity with BMI of 50.0-59.9, adult (HCC) - ICD9: 278.01, V85.43, ICD10: E66.01, Z68.43 Improved diet and exercise. Recheck in 6 months. 3. Essential hypertension - ICD9: 401.9, ICD10: I10 - good control - Continue current medication(s) - Encouraged dietary sodium restriction/DASH diet - Recommended regular aerobic exercise. - Reviewed risks of HTN and principles of treatment - Goal of BP <140/90 - COMP METABOLIC PANEL 4. Pure hypercholesterolemia - ICD9: 272.0, ICD10: E78.00 - good control - Continue current medication. - Encouraged following a low fat, low cholesterol diet. - Discussed the benefits of regular aerobic exercise and weight loss. 5. JUSTINA (obstructive sleep apnea) - ICD9: 327.23, ICD10: G47.33 Controlled, continue nightly at current settings. 6. Pulmonary hypertension (HCC) - ICD9: 416.8, ICD10: I27.[address] Singh. Continue CPAP nightly. 7. Gastroesophageal reflux disease, esophagitis presence not specified - ICD9: 530.81, ICD10: K21.9 - Continue treatment with Prevacid 30 mg QD 8. Screening mammogram, encounter for - ICD9: V76.12, ICD10: Z12.31 - Set up for mammogram, yearly mammogram recommended - Follow up for annual exam in one year. - [facility] SCREENING Yolande Chairez MD Referring Provider: YOLANDE CHAIREZ) [[id number]] Allergies As of Date: 08/01/2018 Noted Allergy Reaction DANIEL INHIBITORS 06/15/2005 7 - Swelling Comments: Angioedema. Lips. LIPITOR (ATORVASTATIN CALCIUM) 06/15/2005 Comments: Muscle aches PANAFIL (PZNYDE-OVHU-VIJNADIGQINB*08/18/2005 5 - Intolerance Comments: ? AMPICILLIN 06/15/2005 2 - Rash Comments: Bilateral arms. DARVOCET-N 100 (PROPOXYPHENE N-AC*01/31/2010 1 - Mental Status Change 14 - Other: See Comments Comments: Dizziness. PERCOCET (OXYCODONE-ACETAMINOPHEN)01/31/2010 1 - Mental Status Change Date Reviewed: 08/01/2018 Reviewed by: John Vance Ma - Fully Assessed Reason for Visit: 4 month follow up [Other] Primary Visit Diagnosis:Pain in left hip [M25.552] Other Visit Diagnoses:Morbid obesity with BMI of 50.0-59.9, adult (HCC) [E66.01, Z68.43] Essential hypertension [I10] Pure hypercholesterolemia [E78.00] JUSTINA (obstructive sleep apnea) [G47.33] Pulmonary hypertension (HCC) [I27.20] Gastroesophageal reflux disease, esophagitis presence not specified [K21.9] Screening mammogram, encounter for [Z12.31] Order(s):COMP METABOLIC PANEL [SQCMP] Order #: [id number] FUTURE ENEDELIA SCREENING [[id number]] Order #: [id number] FUTURE Prescriptions as of 08/01/2018 Sig: SIMVASTATIN 20 MG TABLET TAKE 0.5 TABLETS BY MOUTH MATTHEW* CETIRIZINE 10 MG TABLET Take 1 tablet by mouth once d* COMPOUNDED PRESCRIPTION KNEE HIGH COMPRESSION STOCKIN* HYDROCHLOROTHIAZIDE 25 MG TAB* TAKE 0.5 TABLETS BY MOUTH ONC* FLUTICASONE 50 MCG/ACTUATION * Use 2 Sprays in each nostril * MUCINEX DM ORAL Take by mouth twice daily. LANSOPRAZOLE 15 MG CAPSULE,DE* Take 2 capsules by mouth ever* ASPIRIN 81 MG TABLET,DELAYED * Take 1 tablet by mouth once d* CPAP Decrease the Bilevel setting * COMPOUNDED PRESCRIPTION Home Oxygen @ 2L-4L Nasal Can* CHOLECALCIFEROL (VITAMIN D3) * Take one(1) tablet two(2) corinne* Problem List As Of Date 08/01/2018 Noted Resolved Pure Hypercholesterolemia [E78.00] INVALID FOR* More... Essential hypertension [I10] INVALID FOR* More... 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 Lymphedema, not elsewhere classified [I89.0] INVALID FOR* Benign neoplasm of colon [D12.6] INVALID FOR*08/19/2012 Achilles bursitis or tendinitis [M76.60] INVALID FOR*08/19/2012 Unspecified sleep apnea [G47.30] INVALID FOR*06/13/2016 More... Non-healing surgical wound [T81.89XA] INVALID FOR*08/19/2012 Protein calorie malnutrition [E46] INVALID FOR*08/19/2012 More... PUD (peptic ulcer disease) [K27.9] INVALID FOR*08/19/2012 More... Pain in joint [M25.50] INVALID FOR*06/13/2016 Vitamin D deficiency [E55.9] INVALID FOR* Preop exam for internal medicine [Z01.818] 08/19/2012 Open wound of knee, leg (except thigh), and ank*INVALID FOR*08/19/2012 Hypertension [I10] INVALID FOR*06/13/2016 BMI 50.0-59.9, adult (HCC) [Z68.43] INVALID FOR*06/16/2014 JUSTINA (obstructive sleep apnea) [G47.33] INVALID FOR* Pulmonary hypertension (HCC) [I27.20] INVALID FOR* BMI 45.0-49.9, adult (HCC) [Z68.42] INVALID FOR*10/15/2014 BMI 40.0-44.9, adult (HCC) [Z68.41] INVALID FOR*03/28/2017 More... Allergic rhinitis [J30.9] INVALID FOR* Impaired glucose metabolism [R73.09] INVALID FOR*08/01/2018 More... On home oxygen therapy [Z99.81] INVALID FOR* Staphylococcus epidermidis infection [B95.7] INVALID FOR*03/28/2017 Dysphagia, unspecified(787.20) [R13.10] INVALID FOR* Morbid obesity with BMI of 50.0-59.9, adult (HC* Venous stasis dermatitis [I87.2] Pain in left hip [M25.552] INVALID FOR* Pain in the groin, left [R10.32] INVALID FOR* Medications Discontinued During This Encounter methylPREDNISolone (MEDROL, BENJIE,) 4 * 1 Pa* 0 04/19/2018 08/01/2018 Sig: As Instructed per package Patient not taking: Reported on 05/02/2018 Disc: Reason for discontinue is not on file. meloxicam (MOBIC) 15 mg tablet 30 t* 1 04/01/2018 08/01/2018 Route: ORAL Sig: Take 1 tablet by mouth once daily. Take with food. Patient not taking: Reported on 07/31/2018 Disc: Reason for discontinue is not on file. Disposition: Return in about 6 months (around 01/29/2019). Follow-up and Disposition History Recorded Encounter Status:Closed by YOLANDE CHAIREZ MD on 08/01/18 PROGRESS Observed: 08/01/2018 Status: COMPLETED Source: [place] 9:34 AM [facility] [place] REPOSITORY HNO ID: [id number] Author: Yolande Foss) Mihaela Service: (none) Author Type: Physician Type: Progress Notes Filed: 08/01/2018 10:41 AM Note Text: Chief Complaint Patient presents with: 4 month follow up HPI Venice Croft is a 73 year old female who presents here today for 4 month follow up visit. Left hip pain: xray after last OV shows arthritis changes. Recommended patient follow up with ortho and PT for further evaluation. Ortho Dr. Cooper recommended weight loss, possible hip injection, and PT. Has been to PT for total of 10 out of 12 visits and is improving. Last PT visit pain was 3/10. Taking ASA 325 mg and tylenol arthritis once daily for pain. Morbid obesity: discussed improved diet, smaller portions, more vegetables and lean proteins. Exercise as able at home and with PT. Discussed low impact. HTN: well controlled on current regimen. Due for repeat CMP. JUSTINA: using CPAP nightly, working well on current settings. Pulm HTN: following up with Dr. Singh, continuing use of CPAP and home oxygen daily. Up to 6 L via NC while ambulating, 3 L at rest. Requesting order for screening mammogram. Past medical history, appointments, medications, allergies reviewed. 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 Boyd - Fracture - Gastroparesis - GERD (gastroesophageal reflux disease) - History of poliomyelitis age 8 - History of staph infection Seeing Dr. Rinaldi yearly, on doxycycline - Impaired glucose tolerance test - Morbid obesity with BMI of 50.0-59.9, adult (HCC) - On home oxygen therapy - Open wound of knee, leg (except thigh), and ankle, complicated - JUSTINA (obstructive sleep apnea) uses bipap nightly - Pulmonary hypertension ([facility]) Seeing Dr. Singh - Pure hypercholesterolemia - Unspecified essential hypertension - Venous stasis dermatitis Previous Surgical History PAST SURGICAL HISTORY Procedure Laterality Date - BX OF BREAST; INCISIONAL Bx of breast, incisional multiple, benign - COLONOSCOP W/ OR W/O [facility] SPEC N/A 11/14/2016 repeat in 2 years - COLONOSCOPY W/BX 10/27/08 - DANDC, DIAG AND/OR THERAPEUTIC - EMERGENCY TRACHEOTOMY Polio at the age of 8 - KNEE SCOPE,DIAGNOSTIC 1990s Arthroscopy, knee RIGHT - REMOVE CATARACT, INSERT LENS, INTRACAPSUL Bilateral 05/2016 - REMOVE TONSILS/ADENOIDS,<12 Y/O - TOTAL HIP REPLACEMENT 06/2007 Hip replacement, total right - TOTAL KNEE REPLACEMENT 12/2007 Knee replacement, total knee - TOTAL KNEE REPLACEMENT 04/24 Knee replacement, total Family History FAMILY HISTORY Problem Relation Age of Onset - Diabetes Mother - Cancer Mother Bladder - Stroke Mother - Diabetes Maternal Aunt - Diabetes Maternal Uncle HEART DISEASE - Heart Maternal Grandmother Patient Allergies ALLERGIES Allergen Reactions - Daniel Inhibitors Swelling Angioedema. Lips. - Lipitor [Atorvastat* Muscle aches - Panafil [Papain-Ure* Intolerance ? - Ampicillin Rash Bilateral arms. - Darvocet-N 100 [Pro* Mental Status Change, Other: See Comments Dizziness. - Percocet [Oxycodone* Mental Status Change Current Medications Current Outpatient Prescriptions on File Prior to Visit: simvastatin (ZOCOR) 20 mg tablet TAKE 0.5 TABLETS BY MOUTH DAILY AT BEDTIME. cetirizine (ZYRTEC) 10 mg tablet Take 1 tablet by mouth once daily. methylPREDNISolone (MEDROL, BENJIE,) 4 mg Dose-Pack As Instructed per package (Patient not taking: Reported on 05/02/2018 ) meloxicam (MOBIC) 15 mg tablet Take 1 tablet by mouth once daily. Take with food. (Patient not taking: Reported on 07/31/2018 ) Compression Knee Highs KNEE HIGH COMPRESSION STOCKINGS 30- 40 MM. DX: EDEMA hydroCHLOROthiazide (HYDRODIURIL, ESIDRIX) 25 mg tablet TAKE 0.5 TABLETS BY MOUTH ONCE DAILY. fluticasone (FLONASE) 50 mcg/actuation nasal spray Use 2 Sprays in each nostril once daily. GUAIFENESIN/DEXTROMETHORPHAN (MUCINEX DM ORAL) Take by mouth twice daily. lansoprazole (PREVACID) 15 mg capsule Take 2 capsules by mouth every evening. aspirin, enteric coated (ADULT LOW DOSE ASPIRIN) 81 mg EC tablet Take 1 tablet by mouth once daily. CPAP Decrease the Bilevel setting to 13/8 cm h20 with 3 LPM of oxygen. COMPOUNDED PRESCRIPTION Home Oxygen @ 2L-4L Nasal Canula - continuous Diagnoses: Hypoxia 799.02, Dyspnea 786.09, Pulmonary Hypertension 416.8 Cholecalciferol, Vitamin D3, (VITAMIN D) 2,000 unit ORAL Cap Take one(1) tablet two(2) times daily. No current facility-administered medications on file prior to visit. Social History Social History Marital status: Single Spouse name: Years of education: Number of children: 0 Occupational History Occupation Employer Comment Retired [employer] Social History Main Topics Smoking status: Never Smoker Smokeless tobacco: Never Used Comment: Parents non-smokers. Alcohol use: No Drug use: No Sexual activity: No Review of Symptoms REVIEW OF SYSTEMS GENERAL: No weight loss, malaise or fevers RESPIRATORY: Negative for cough, hemoptysis, wheezing, COPD, dyspnea or shortness of breath CARDIOVASCULAR: Negative for chest pain, leg swelling, hypertension, CHF or palpitations GI: No nausea, vomiting, or diarrhea SKIN: Negative for lesions, rash, and itching EXAM: BP 136/76 Pulse 78 Resp 12 Wt 133.4 kg (294 lb) SpO2 96% BMI 52.08 kg/m? General Appearance: Well appearing, alert, in no acute distress, well-hydrated, well nourished.. Skin: Skin color, texture, turgor normal, no suspicious rashes or lesions. Lungs: lungs clear to auscultation. No wheezing, rhonchi, rales. Heart: RRR without murmur, gallop, or rubs. No ectopy. Abdomen: Normal abdominal exam, Abdomen soft, non-tender. Bowel sounds normal. No masses, organomegaly. Extremities: No deformities, edema, skin discoloration, clubbing or cyanosis. Good capillary refill. . Health Maintenance List BP CONTROLLED (<130/80) due on 1961 PAP EVERY 3 YEARS (65-80 YEARS OLD) due on 11/01/2008 DTAP,TDAP,TD(1 - Tdap) due on 11/25/2008 COLORECTAL CANCER SCREENING,SEE MODIFIER due on 01/17/2019 ANNUAL PCP TEAM CHRONIC DISEASE VISIT due on 04/01/2019 DIABETES SCREEN due on 03/26/2021 LIPID SCREEN due on 03/26/2023 BONE DENSITY Completed ADULT PREVNAR-13 Completed INFLUENZA Completed PNEUMOVAX AGE 65 AND OVER WITH 5YR LOOKBACK Completed Data reviewed Component Latest Ref Rng AND Units 04/06/2017 07/28/2017 11/28/2017 03/26/2018 Protein, Total 6.3 - 8.0 g/dL 7.0 7.5 7.7 Albumin 3.9 - 4.9 g/dL 4.0 4.1 4.2 Calcium 8.5 - 10.2 mg/dL 8.2 (L) 9.2 8.9 Bilirubin, Total 0.2 - 1.3 mg/dL 0.4 0.4 0.4 Alkaline Phosphatase 32 - 117 U/L 51 56 54 AST 13 - 35 U/L 18 22 19 Glucose 74 - 99 mg/dL 109 (H) 114 (H) 97 BUN 7 - 21 mg/dL 16 12 13 Creatinine 0.58 - 0.96 mg/dL 0.60 0.65 0.55 (L) Sodium 136 - 144 mmol/L 140 144 138 Potassium 3.7 - 5.1 mmol/L 4.4 4.2 4.0 Chloride 97 - 105 mmol/L 95 (L) 96 (L) 92 (L) CO2 22 - 30 mmol/L 31 (H) 37 (H) 36 (H) Anion Gap 9 - 18 mmol/L 14 11 10 ALT 7 - 38 U/L 12 15 14 eGFR- >60 >60 >60 eGFR-All Other Races . >60 >60 >60 Triglyceride <150 mg/dL 120 75 Cholesterol, Total <200 mg/dL 191 209 (H) HDL Cholesterol >39 mg/dL 75 96 VLDL Cholesterol <30 mg/dL 24 15 LDL Cholesterol <100 mg/dL 92 98 Fasting Time hrs 3 11 TC:HDL Ratio <5.10 2.55 2.18 LDL:HDL Ratio <2.54 1.23 1.02 Non HDL Cholesterol <130 mg/dL 116 113 Hemoglobin A1C 4.3 - 5.6 % 5.2 5.3 Estimated Average Glucose mg/dL 103 105 TSH 0.400 - 5.500 uU/mL 2.920 Vitamin D 25 Hydroxy 31.0 - 80.0 ng/mL 39.3 ASSESSMENT/PLAN: 1. Pain in left hip - ICD9: 719.45, ICD10: M25.552 (primary diagnosis) 2/2 OA. Continue PT. Work on weight loss. Continue OTC analgesics. 2. Morbid obesity with BMI of 50.0-59.9, adult (HCC) - ICD9: 278.01, V85.43, ICD10: E66.01, Z68.43 Improved diet and exercise. Recheck in 6 months. 3. Essential hypertension - ICD9: 401.9, ICD10: I10 - good control - Continue current medication(s) - Encouraged dietary sodium restriction/DASH diet - Recommended regular aerobic exercise. - Reviewed risks of HTN and principles of treatment - Goal of BP <140/90 - COMP METABOLIC PANEL 4. Pure hypercholesterolemia - ICD9: 272.0, ICD10: E78.00 - good control - Continue current medication. - Encouraged following a low fat, low cholesterol diet. - Discussed the benefits of regular aerobic exercise and weight loss. 5. JUSTINA (obstructive sleep apnea) - ICD9: 327.23, ICD10: G47.33 Controlled, continue nightly at current settings. 6. Pulmonary hypertension (HCC) - ICD9: 416.8, ICD10: I27.[address] Singh. Continue CPAP nightly. 7. Gastroesophageal reflux disease, esophagitis presence not specified - ICD9: 530.81, ICD10: K21.9 - Continue treatment with Prevacid 30 mg QD 8. Screening mammogram, encounter for - ICD9: V76.12, ICD10: Z12.31 - Set up for mammogram, yearly mammogram recommended - Follow up for annual exam in one year. - [facility] SCREENING Yolande Chairez MD PROGRESS Observed: 07/31/2018 Status: COMPLETED Source: [place] 1:45 PM [facility] REPOSITORY HNO ID: [id number] Author: Sofiya (Pt) Lucia Service: (none) Author Type: Physical Therapist Type: Progress Notes Filed: 07/31/2018 1:52 PM Note Text: Episode Visit Count: 10 Therapist That Will Oversee The Plan Of Care: Sofiya Myers PT Start of Care Date: 04/12/18 Onset Date: 02/21/18 Plan of Care Certification Date: 05/14/18 Patient Identified by Name and Date of : Yes [facility] PHYSICAL THERAPY TREATMENT NOTE ASSESSMENT: Venice Croft demonstrated improvements in being able to perform SAQ without L groin pain today. Progressed HEP by adding a supine hip flexor stretch. Will need to assess delayed benefit. The patient will continue to benefit from continued skilled physical therapy for ther ex and manual to help with L groin pain. PLAN FOR NEXT VISIT: Assess delayed response to hip flexor stretch. Perform exercises row6-9. POC update 08/13/18. SUBJECTIVE: Sore and difficult to walk and move leaving last PT session. Took a day to get back to normal. Pain Score: 3/10 Pain Location: Groin - Left;Thigh - Left Description: Sharp Frequency: Intermittent (first standing from seated position) Post Treatment Pain Score: No Change OBJECTIVE MEASURES WITH LEVEL OF FUNCTION: Mobility Sit To Stand: (needs to use her arms to stand and winces when stands) TREATMENT: Therapeutic Exercise: 5: Hooklying SAQ with green bolster under knees 2x10, B (no discomfort in L groin) 10: Seated Recumbent Stepper Seat 16, level 1, arms 5, 5 minutes 12: Seated LAQ 2x10, B 13: Standing forward toe taps on Bosu with B UE support 2x15 taping 1/2 way up from bottom 14: Standing side toe taps on Bosu with B UE support 2x15 taping 1/2 way up from bottom 15: [address] with peach band x10 each direction, B with BUE support (Patient needed cuing for set up) 16: STS from lowest x10 got a catch in L hip every time stood. 17: *Supine L hip flexor stretch 10 sec, 6x Skilled Intervention: Patient was educated in proper exercise technique and purpose for exercises. Reviewed and educated patient on additions/changes for home exercise program as above (*) Skilled judgment was provided in selection of appropriate interventions. Provided written instruction for home exercise program to facilitate proper performance and compliance. Correct performance of therapeutic exercises was facilitated with verbal, visual and tactile cuing. Manual Therapy: 2: L leg traction (to help improve hip ABD) with intermittent pulling and oscillaltion 8 minutes. 6: Manual to L hip flexor with tigger point release, STM with hands, and lacrosse ball Skilled Intervention: Manual skills to improve joint mobility, ROM, and decrease pain. Utilized anatomy knowledge of the therapist, and assessment of patient's response to intervention. Billing: [facility]: Therapeutic Exercise ([id number]): 1:1 time: 27 minutes (2 units: 23-37 mins) Manual Therapy ([id number]): 1:1 time: 18 minutes (1 unit: 8-22 mins) Total time: 45 minutes Sofiya Myers PT PROGRESS Observed: 07/31/2018 Status: COMPLETED Source: [place] 9:30 AM [facility] [place] REPOSITORY HNO ID: [id number] Author: Bruce Rinaldi Service: (none) Author Type: Physician Type: Progress Notes Filed: 07/31/2018 9:53 AM Note Text: INFECTIOUS DISEASES PROGRESS NOTE PATIENT NAME: Venice Croft SERVICE DATE: July 31, 2018 SERVICE TIME: 9:48 AM REASON FOR VISIT Annual follow-up, chronic MRSE infection, prosthetic right knee SUBJECTIVE No complaints referable to the right knee. Tolerating doxycycline. Has difficulty with left hip pain, which is been attributed to osteoarthritis. Had issues with a abnormal swallowing evaluation recently. Wonders if this could have been related to her remote polio. Asks about medical marijuana OBJECTIVE PHYSICAL EXAM: Afebrile, VSS General appearance: alert, not toxic, in no acute distress, walking with a cane and wearing nasal oxygen Extremity: Right knee has no limitation of range of motion. No tenderness, no erythema. Incisions well-healed ASSESSMENT: Stable on the current regimen, indefinite doxycycline suppressive therapy after complex and protracted course of treatment for MRSE infection, prosthetic right knee PLAN: [id number] mg daily, indefinite Follow-up one year SIGNATURE: Bruce Rinaldi MD DATE: July 31, 2018 TIME: 9:48 AM Copy to: [place] [id number] [address] [facility] [id number] CNTHERAPY Observed: 07/30/2018 Status: COMPLETED Source: [place] 10:00 AM [facility] REPOSITORY OT/PT/Speech Visit (PTWS) VENICE CROFT ([id number]) 1945 F Date Time Provider Department 07/30/18 10:00 AM SOFIYA MYERS (PT) PTWS Date Time Provider Department Center 07/30/2018 10:00 AM [id number], DIANA (PT)PTWS [facility] Reason for Visit: Physical Therapy [503] Primary Visit Diagnosis:Pain in left hip [M25.552] Other Visit Diagnosis:Pain in the groin, left [R10.32] Allergies As of Date: 07/30/2018 Noted Allergy Reaction DANIEL INHIBITORS 06/15/2005 7 - Swelling Comments: Angioedema. Lips. LIPITOR (ATORVASTATIN CALCIUM) 06/15/2005 Comments: Muscle aches PANAFIL ([id number]*08/18/2005 5 - Intolerance Comments: ? AMPICILLIN 06/15/2005 2 - Rash Comments: Bilateral arms. DARVOCET-N 100 (PROPOXYPHENE N-AC*01/31/2010 1 - Mental Status Change 14 - Other: See Comments Comments: Dizziness. PERCOCET (OXYCODONE-ACETAMINOPHEN)01/31/2010 1 - Mental Status Change Date Reviewed: 05/17/2018 Reviewed by: Jonah Cooper - Fully Assessed Prescriptions as of 07/30/2018 Sig: SIMVASTATIN 20 MG TABLET TAKE 0.5 TABLETS BY MOUTH MATTHEW* CETIRIZINE 10 MG TABLET Take 1 tablet by mouth once d* METHYLPREDNISOLONE 4 MG TABLE* As Instructed per package Patient not taking: Reported on 05/02/2018 MELOXICAM 15 MG TABLET Take 1 tablet by mouth once d* Patient not taking: Reported on 07/31/2018 COMPOUNDED PRESCRIPTION KNEE HIGH COMPRESSION STOCKIN* HYDROCHLOROTHIAZIDE 25 MG TAB* TAKE 0.5 TABLETS BY MOUTH ONC* FLUTICASONE 50 MCG/ACTUATION * Use 2 Sprays in each nostril * MUCINEX DM ORAL Take by mouth twice daily. LANSOPRAZOLE 15 MG CAPSULE,DE* Take 2 capsules by mouth ever* ASPIRIN 81 MG TABLET,DELAYED * Take 1 tablet by mouth once d* CPAP Decrease the Bilevel setting * COMPOUNDED PRESCRIPTION Home Oxygen @ 2L-4L Nasal Can* CHOLECALCIFEROL (VITAMIN D3) * Take one(1) tablet two(2) corinne* Progress Notes: Sofiya Myers, PT 07/31/2018 1:52 PM Signed Episode Visit Count: 10 Therapist That Will Oversee The Plan Of Care: Sofiya Myers PT Start of Care Date: 04/12/18 Onset Date: 02/21/18 Plan of Care Certification Date: 05/14/18 Patient Identified by Name and Date of : Yes REHABILITATION AND SPORTS THERAPY PHYSICAL THERAPY TREATMENT NOTE ASSESSMENT: Venice Croft demonstrated improvements in being able to perform SAQ without L groin pain today. Progressed HEP by adding a supine hip flexor stretch. Will need to assess delayed benefit. The patient will continue to benefit from continued skilled physical therapy for ther ex and manual to help with L groin pain. PLAN FOR NEXT VISIT: Assess delayed response to hip flexor stretch. Perform exercises row6-9. POC update 08/13/18. SUBJECTIVE: Sore and difficult to walk and move leaving last PT session. Took a day to get back to normal. Pain Score: 3/10 Pain Location: Groin - Left;Thigh - Left Description: Sharp Frequency: Intermittent (first standing from seated position) Post Treatment Pain Score: No Change OBJECTIVE MEASURES WITH LEVEL OF FUNCTION: Mobility Sit To Stand: (needs to use her arms to stand and winces when stands) TREATMENT: Therapeutic Exercise: 5: Hooklying SAQ with green bolster under knees 2x10, B (no discomfort in L groin) 10: Seated Recumbent Stepper Seat 16, level 1, arms 5, 5 minutes 12: Seated LAQ 2x10, B 13: Standing forward toe taps on Bosu with B UE support 2x15 taping 1/2 way up from bottom 14: Standing side toe taps on Bosu with B UE support 2x15 taping 1/2 way up from bottom 15: Standing [address] with peach band x10 each direction, B with BUE support (Patient needed cuing for set up) 16: STS from lowest x10 got a catch in L hip every time stood. 17: *Supine L hip flexor stretch 10 sec, 6x Skilled Intervention: Patient was educated in proper exercise technique and purpose for exercises. Reviewed and educated patient on additions/changes for home exercise program as above (*) Skilled judgment was provided in selection of appropriate interventions. Provided written instruction for home exercise program to facilitate proper performance and compliance. Correct performance of therapeutic exercises was facilitated with verbal, visual and tactile cuing. Manual Therapy: 2: L leg traction (to help improve hip ABD) with intermittent pulling and oscillaltion 8 minutes. 6: Manual to L hip flexor with tigger point release, STM with hands, and lacrosse ball Skilled Intervention: Manual skills to improve joint mobility, ROM, and decrease pain. Utilized anatomy knowledge of the therapist, and assessment of patient's response to intervention. Billing: [facility]: Therapeutic Exercise ([id number]): 1:1 time: 27 minutes (2 units: 23-37 mins) Manual Therapy ([id number]): 1:1 time: 18 minutes (1 unit: 8-22 mins) Total time: 45 minutes Sofiya Myers PT PROGRESS Observed: 07/25/2018 Status: COMPLETED Source: [place] 11:02 AM [facility] REPOSITORY HNO ID: [id number] Author: Sofiya Myers Service: (none) Author Type: Physical Therapist Type: Progress Notes Filed: 07/25/2018 11:09 AM Note Text: Episode Visit Count: 9 Therapist That Will Oversee The Plan Of Care: Sofiya Myers PT Start of Care Date: 04/12/18 Onset Date: 02/21/18 Plan of Care Certification Date: 05/14/18 Patient Identified by Name and Date of : Yes REHABILITATION AND SPORTS THERAPY PHYSICAL THERAPY TREATMENT NOTE ASSESSMENT: Venice Croft demonstrated slight improvements in L groin/L thigh pain with walking at the end of today's session. Patient seemed to do well to increased weight bearing exercises. The patient jaelyn continue to benefit from continued skilled physical therapy for ther ex and manual to help with pain releif. PLAN FOR NEXT VISIT: assess delayed response to more active weight bearing approach. STS with UE assist. Manaul SUBJECTIVE: Patient finds if she sits for a while it catches in the L groin when she stands. She has also gained 10 lbs over the last week or so, but has been eating things she knows she should not like chips and what not. Pain Score: 3/10 (0/10 sitting) Pain Location: Groin - Left;Thigh - Left (L shoulder aching with no intensity rating given) Description: Aching Frequency: Intermittent Post Treatment Pain Score: (2.5/10less of a catch standing) Pain Location: Groin - Left;Thigh - Left Post Treatment Pain Description: Aching OBJECTIVE MEASURES WITH LEVEL OF FUNCTION: Gait Gait Observation: Non antalgic gait entering and leaving session with standard cane TREATMENT: Therapeutic Exercise: 4: Hooklying SLS on L x5 but too difficult for patient to lift leg due to size/heaviness of the leg 5: *Hooklying SAQ with green bolster under knees 2x10, B (slight discomfort in L groin) 9: Supine L hip ABD 2x10 in small range worked well (feels a pushing feeling in back of L hip) 10: Seated Recumbent Stepper Seat 16, level 1, arms 5, 5 minutes 12: *Seated LAQ 2x10, B 13: Standing forward toe taps on Bosu with B UE support 2x15 taping 1/2 way up from bottom 14: Standing side toe taps on Bosu with B UE support 2x15 taping 1/2 way up from bottom 15: Standing 4 way with peach band x10 each direction, B with BUE support Skilled Intervention: Patient was educated in proper exercise technique and purpose for exercises. Reviewed and educated patient on additions/changes for home exercise program as above (*) Patient education as noted. Recommended patient get up and walk every hour instead of sitting in her chair for hours and watching TV. Education provided on the importance of moving for blood in muscles and joints Patient to try Both LAQ and SAQ at home. Manual Therapy: 2: L leg traction (to help improve hip ABD) with intermittent pulling and oscillaltion 8 minutes. 4: Posterior mobs for L hip (working on hip flexion and IR) 4x10, grade I-II 5: Lateral L hip mobs (working on hip ADD and IR with belt 4x10, Grade I-II Skilled Intervention: Manual skills to improve joint mobility, ROM, and decrease pain. Utilized anatomy knowledge of the therapist, and assessment of patient's response to intervention. Billing: [facility]: Therapeutic Exercise ([id number]): 1:1 time: 30 minutes (2 units: 23-37 mins) Manual Therapy ([id number]): 1:1 time: 15 minutes (1 unit: 8-22 mins) Total time: 45 minutes Sofiya Myers PT CNTHERAPY Observed: 07/25/2018 Status: COMPLETED Source: [place] 9:15 AM [facility] REPOSITORY OT/PT/Speech Visit (PTWS) VENICE CROFT ([id number]) 1945 F Date Time Provider Department 07/25/18 9:15 AM SOFIYA MYERSPT) PTWS Date Time Provider Department Center 07/25/2018 9:15 AM [id number], DIANA (PT)[facility] Reason for Visit: Physical Therapy [503] Primary Visit Diagnosis:Pain in left hip [M25.552] Other Visit Diagnosis:Pain in the groin, left [R10.32] Allergies As of Date: 07/25/2018 Noted Allergy Reaction DANIEL INHIBITORS 06/15/2005 7 - Swelling Comments: Angioedema. Lips. LIPITOR (ATORVASTATIN CALCIUM) 06/15/2005 Comments: Muscle aches PANAFIL ([id number]*08/18/2005 5 - Intolerance Comments: ? AMPICILLIN 06/15/2005 2 - Rash Comments: Bilateral arms. DARVOCET-N 100 (PROPOXYPHENE N-AC*01/31/2010 1 - Mental Status Change 14 - Other: See Comments Comments: Dizziness. PERCOCET (OXYCODONE-ACETAMINOPHEN)01/31/2010 1 - Mental Status Change Date Reviewed: 05/17/2018 Reviewed by: Jonah Cooper - Fully Assessed Prescriptions as of 07/25/2018 Sig: SIMVASTATIN 20 MG TABLET TAKE 0.5 TABLETS BY MOUTH MATTHEW* CETIRIZINE 10 MG TABLET Take 1 tablet by mouth once d* METHYLPREDNISOLONE 4 MG TABLE* As Instructed per package Patient not taking: Reported on 05/02/2018 MELOXICAM 15 MG TABLET Take 1 tablet by mouth once d* COMPOUNDED PRESCRIPTION KNEE HIGH COMPRESSION STOCKIN* HYDROCHLOROTHIAZIDE 25 MG TAB* TAKE 0.5 TABLETS BY MOUTH ONC* FLUTICASONE 50 MCG/ACTUATION * Use 2 Sprays in each nostril * MUCINEX DM ORAL Take by mouth twice daily. LANSOPRAZOLE 15 MG CAPSULE,DE* Take 2 capsules by mouth ever* ASPIRIN 81 MG TABLET,DELAYED * Take 1 tablet by mouth once d* CPAP Decrease the Bilevel setting * COMPOUNDED PRESCRIPTION Home Oxygen @ 2L-4L Nasal Can* CHOLECALCIFEROL (VITAMIN D3) * Take one(1) tablet two(2) corinne* Progress Notes: Sofiya Myers PT 07/25/2018 11:09 AM Signed Episode Visit Count: 9 Therapist That Will Oversee The Plan Of Care: Sofiya Myers PT Start of Care Date: 04/12/18 Onset Date: 02/21/18 Plan of Care Certification Date: 05/14/18 Patient Identified by Name and Date of : Yes REHABILITATION AND SPORTS THERAPY PHYSICAL THERAPY TREATMENT NOTE ASSESSMENT: [place] Croft demonstrated slight improvements in L groin/L thigh pain with walking at the end of today's session. Patient seemed to do well to increased weight bearing exercises. The patient jaelyn continue to benefit from continued skilled physical therapy for ther ex and manual to help with pain releif. PLAN FOR NEXT VISIT: assess delayed response to more active weight bearing approach. STS with UE assist. Manaul SUBJECTIVE: Patient finds if she sits for a while it catches in the L groin when she stands. She has also gained 10 lbs over the last week or so, but has been eating things she knows she should not like chips and what not. Pain Score: 3/10 (0/10 sitting) Pain Location: Groin - Left;Thigh - Left (L shoulder aching with no intensity rating given) Description: Aching Frequency: Intermittent Post Treatment Pain Score: (2.5/10less of a catch standing) Pain Location: Groin - Left;Thigh - Left Post Treatment Pain Description: Aching OBJECTIVE MEASURES WITH LEVEL OF FUNCTION: Gait Gait Observation: Non antalgic gait entering and leaving session with standard cane TREATMENT: Therapeutic Exercise: 4: Hooklying SLS on L x5 but too difficult for patient to lift leg due to size/heaviness of the leg 5: *Hooklying SAQ with green bolster under knees 2x10, B (slight discomfort in L groin) 9: Supine L hip ABD 2x10 in small range worked well (feels a pushing feeling in back of L hip) 10: Seated Recumbent Stepper Seat 16, level 1, arms 5, 5 minutes 12: *Seated LAQ 2x10, B 13: Standing forward toe taps on Bosu with B UE support 2x15 taping 1/2 way up from bottom 14: Standing side toe taps on Bosu with B UE support 2x15 taping 1/2 way up from bottom 15: Standing 4 way with peach band x10 each direction, B with BUE support Skilled Intervention: Patient was educated in proper exercise technique and purpose for exercises. Reviewed and educated patient on additions/changes for home exercise program as above (*) Patient education as noted. Recommended patient get up and walk every hour instead of sitting in her chair for hours and watching TV. Education provided on the importance of moving for blood in muscles and joints Patient to try Both LAQ and SAQ at home. Manual Therapy: 2: L leg traction (to help improve hip ABD) with intermittent pulling and oscillaltion 8 minutes. 4: Posterior mobs for L hip (working on hip flexion and IR) 4x10, grade I-II 5: Lateral L hip mobs (working on hip ADD and IR with belt 4x10, Grade I-II Skilled Intervention: Manual skills to improve joint mobility, ROM, and decrease pain. Utilized anatomy knowledge of the therapist, and assessment of patient's response to intervention. Billing: [facility]: Therapeutic Exercise ([id number]): 1:1 time: 30 minutes (2 units: 23-37 mins) Manual Therapy ([id number]): 1:1 time: 15 minutes (1 unit: 8-22 mins) Total time: 45 minutes Sofiya Myers PT PROGRESS Observed: 07/21/2018 Status: COMPLETED Source: [place] 11:47 AM [facility] REPOSITORY HNO ID: [id number] Author: Sofiya (Willis) Lucia Service: (none) Author Type: Physical Therapist Type: Progress Notes Filed: 07/21/2018 11:53 AM Note Text: Episode Visit Count: 8 Therapist That Will Oversee The Plan Of Care: Sofiya Myers PT Start of Care Date: 04/12/18 Onset Date: 02/21/18 Plan of Care Certification Date: 05/14/18 Patient Identified by Name and Date of : Yes REHABILITATION AND SPORTS THERAPY PHYSICAL THERAPY PROGRESS REPORT PLAN OF CARE UPDATE: Assessment: [place] Croft exhibits improvements in less L groin and thigh pain with sitting and no pain with sleeping. She is improving with pain when walking, getting her L leg into and out of the car as well as decreased 5xSTS score. She continues to be limited with rising from a chair, standing, walking and physical activities. She is progressing as expected towards her therapy goals as demonstrated by: home exercise program compliance, pain levels, documented subjective information on progress, documented objective information regarding overall function and patient reported outcome measures and appointment compliance. She will benefit from continued skilled therapy requiring ther ex and manaul in order to improve L groin/thigh pain and her ability to walk, get into and out of her car, and decrease time on 5xSTS. Functional gains: Increased endurance / activity tolerance Increased independence with HEP Decreased intensity of pain Goals updated on 07/16/2018. [place] in home exercise program.--MET for current HEP Patient will decrease pain rating by 2 points to meet minimal clinical important difference for numeric pain rating scale. (Goal: 2/10 with sitting and 4/10 with walking--MET for sitting and progressing with Walking Perform sleeping in bed without pain.--MET Demonstrate improvement on functional score: Patient will improve his/her AM-PAC T-scale score by 4 points to indicate a Minimal Clinical Important Difference. (Goal: 49.55)--MET Walking without an assistive device.--Not MET Patient with improve 5x STS to 20 sec to show MCID --Progressing Patient will be able to get into and out of a car without pain.--Progressing G CODE REPORTING Based on clinical assessment and the score on the AM-PAC Scale Score Assessment Tool, the G code and corresponding severity modifiers are documented below. Evaluation: 04/12/2018 Current Status: Mobility: Walking and Moving Around: G8978 CK 40-59% impaired Goal Status: Mobility: Walking and Moving Around: G8979 CK 40-59% Impaired Progress Report: 05/14/2018 Current Status: Mobility: Walking and Moving Around: G8978 CK 40-59% impaired Goal Status: Mobility: Walking and Moving Around: G8979 CK 40-59% impaired Progress Report: 06/11/2018 Current Status: Mobility: Walking and Moving Around: G8978 CK 40-59% impaired Goal Status: Mobility: Walking and Moving Around: G8979 CK 40-59% impaired Progress Report: 07/16/2018 Current Status: Mobility: Walking and Moving Around: G8978 CK 40-59% impaired Goal Status: Mobility: Walking and Moving Around: G8979 CJ 20-39% impaired Planned Interventions, Frequency, and Duration: 1x/week, 4 weeks Total Number of Visits Planned: 12 Patient to be seen for Therapeutic exercise;Manual therapy;Patient/Family/Caregiver Education;Modalities;Self- detention management;Functional training;General Conditioning;Gait TrainingUltrasound PLAN FOR NEXT VISIT: Warm up recumbent bike (see row 10). Con't with manual and exercise to patient tolerance consider LAQ/SAQ. SUBJECTIVE: L shoulder is doing a little better. Patient thinks that the gentleman did a number on her shoulder. Pt found the L leg pull helpful. Patient now able to get L leg into car easier, sitting on toliet better, and able to march easier when seated . Pain Score: 8/10 (for L groin and thigh 0/10sitting, 3/10 walking ) Pain Location: Shoulder - Left Description: Aching Frequency: Continuous (movement if hasn't used shoulder) Post Treatment Pain Score: (feels worked out. No intensity rating given) OBJECTIVE MEASURES WITH LEVEL OF FUNCTION: Functional Performance Test Results 5 Times Sit to Stand Test : 25 sec (20 height mat table witht UE) TREATMENT: Therapeutic Exercise: 6: Hooklying lumbar rotation 10 sec holds, 6x each 7: Hooklying pelvic tilts 2x10 8: LEFT heel slides 2x10 9: Supine L hip ABD x10 in small range worked well 13: Standing forward toe taps on Bosu with B UE support 2x10 taping 1/2 way up from bottom 14: Standing side toe taps on Bosu with B UE support 2x10 taping 1/2 way up from bottom Skilled Intervention: Patient was educated in proper exercise technique and purpose for exercises. Skilled judgment was provided in selection of appropriate interventions. Manual Therapy: 2: L leg traction with intermittent pulling and oscillaltion 10 minutes. 4: Posterior mobs for L hip 3x10, grade I-II 5: Lateral L hip mobs with belt 3x10, Grade I-II Skilled Intervention: Manual skills to improve joint mobility, ROM, and decrease pain. Utilized anatomy knowledge of the therapist, and assessment of patient's response to intervention. Billing: [facility]: Therapeutic Exercise ([id number]): 1:1 time: 24 minutes (2 units: 23-37 mins) Manual Therapy ([id number]): 1:1 time: 18minutes (1 unit: 8-22 mins) Total time: 42 minutes Sofiya Myers PT CNTHERAPY Observed: 07/16/2018 Status: COMPLETED Source: [place] 10:00 AM [facility] REPOSITORY OT/PT/Speech Visit (PTWS) VENICE CROFT ([id number]) 1945 F Date Time Provider Department 07/16/18 10:00 AM SOFIYA MYERS (PT) PTWS Date Time Provider Department Center 07/16/2018 10:00 AM [id number], DIANA (PT)[facility] Reason for Visit: PT Progress Note [1596] Primary Visit Diagnosis:Pain in left hip [M25.552] Other Visit Diagnosis:Pain in the groin, left [R10.32] Allergies As of Date: 07/16/2018 Noted Allergy Reaction DANIEL INHIBITORS 06/15/2005 7 - Swelling Comments: Angioedema. Lips. LIPITOR (ATORVASTATIN CALCIUM) 06/15/2005 Comments: Muscle aches PANAFIL ([id number]*08/18/2005 5 - Intolerance Comments: ? AMPICILLIN 06/15/2005 2 - Rash Comments: Bilateral arms. DARVOCET-N 100 (PROPOXYPHENE N-AC*01/31/2010 1 - Mental Status Change 14 - Other: See Comments Comments: Dizziness. PERCOCET (OXYCODONE-ACETAMINOPHEN)01/31/2010 1 - Mental Status Change Date Reviewed: 05/17/2018 Reviewed by: Jonah Cooper - Fully Assessed Prescriptions as of 07/16/2018 Sig: SIMVASTATIN 20 MG TABLET TAKE 0.5 TABLETS BY MOUTH MATTHEW* CETIRIZINE 10 MG TABLET Take 1 tablet by mouth once d* METHYLPREDNISOLONE 4 MG TABLE* As Instructed per package Patient not taking: Reported on 05/02/2018 MELOXICAM 15 MG TABLET Take 1 tablet by mouth once d* COMPOUNDED PRESCRIPTION KNEE HIGH COMPRESSION STOCKIN* HYDROCHLOROTHIAZIDE 25 MG TAB* TAKE 0.5 TABLETS BY MOUTH ONC* FLUTICASONE 50 MCG/ACTUATION * Use 2 Sprays in each nostril * MUCINEX DM ORAL Take by mouth twice daily. LANSOPRAZOLE 15 MG CAPSULE,DE* Take 2 capsules by mouth ever* ASPIRIN 81 MG TABLET,DELAYED * Take 1 tablet by mouth once d* CPAP Decrease the Bilevel setting * COMPOUNDED PRESCRIPTION Home Oxygen @ 2L-4L Nasal Can* CHOLECALCIFEROL (VITAMIN D3) * Take one(1) tablet two(2) corinne* Progress Notes: Sofiya Myers PT 07/21/2018 11:53 AM Signed Episode Visit Count: 8 Therapist That Will Oversee The Plan Of Care: Sofiya Myers PT Start of Care Date: 04/12/18 Onset Date: 02/21/18 Plan of Care Certification Date: 05/14/18 Patient Identified by Name and Date of : Yes REHABILITATION AND SPORTS THERAPY PHYSICAL THERAPY PROGRESS REPORT PLAN OF CARE UPDATE: Assessment: [place] Croft exhibits improvements in less L groin and thigh pain with sitting and no pain with sleeping. She is improving with pain when walking, getting her L leg into and out of the car as well as decreased 5xSTS score. She continues to be limited with rising from a chair, standing, walking and physical activities. She is progressing as expected towards her therapy goals as demonstrated by: home exercise program compliance, pain levels, documented subjective information on progress, documented objective information regarding overall function and patient reported outcome measures and appointment compliance. She will benefit from continued skilled therapy requiring ther ex and manaul in order to improve L groin/thigh pain and her ability to walk, get into and out of her car, and decrease time on 5xSTS. Functional gains: Increased endurance / activity tolerance Increased independence with HEP Decreased intensity of pain Goals updated on 07/16/2018. [place] in home exercise program.--MET for current HEP Patient will decrease pain rating by 2 points to meet minimal clinical important difference for numeric pain rating scale. (Goal: 2/10 with sitting and 4/10 with walking--MET for sitting and progressing with Walking Perform sleeping in bed without pain.--MET Demonstrate improvement on functional score: Patient will improve his/her AM-PAC T-scale score by 4 points to indicate a Minimal Clinical Important Difference. (Goal: 49.55)--MET Walking without an assistive device.--Not MET Patient with improve 5x STS to 20 sec to show MCID --Progressing Patient will be able to get into and out of a car without pain.--Progressing G CODE REPORTING Based on clinical assessment and the score on the AM-PAC Scale Score Assessment Tool, the G code and corresponding severity modifiers are documented below. Evaluation: 04/12/2018 Current Status: Mobility: Walking and Moving Around: G8978 CK 40-59% impaired Goal Status: Mobility: Walking and Moving Around: G8979 CK 40-59% Impaired Progress Report: 05/14/2018 Current Status: Mobility: Walking and Moving Around: G8978 CK 40-59% impaired Goal Status: Mobility: Walking and Moving Around: G8979 CK 40-59% impaired Progress Report: 06/11/2018 Current Status: Mobility: Walking and Moving Around: G8978 CK 40-59% impaired Goal Status: Mobility: Walking and Moving Around: G8979 CK 40-59% impaired Progress Report: 07/16/2018 Current Status: Mobility: Walking and Moving Around: G8978 CK 40-59% impaired Goal Status: Mobility: Walking and Moving Around: G8979 CJ 20-39% impaired Planned Interventions, Frequency, and Duration: 1x/week, 4 weeks Total Number of Visits Planned: 12 Patient to be seen for Therapeutic exercise;Manual therapy;Patient/Family/Caregiver Education;Modalities;Self- detention management;Functional training;General Conditioning;Gait TrainingUltrasound PLAN FOR NEXT VISIT: Warm up recumbent bike (see row 10). Con't with manual and exercise to patient tolerance consider LAQ/SAQ. SUBJECTIVE: L shoulder is doing a little better. Patient thinks that the gentleman did a number on her shoulder. Pt found the L leg pull helpful. Patient now able to get L leg into car easier, sitting on toliet better, and able to march easier when seated . Pain Score: 8/10 (for L groin and thigh 0/10sitting, 3/10 walking ) Pain Location: Shoulder - Left Description: Aching Frequency: Continuous (movement if hasn't used shoulder) Post Treatment Pain Score: (feels worked out. No intensity rating given) OBJECTIVE MEASURES WITH LEVEL OF FUNCTION: Functional Performance Test Results 5 Times Sit to Stand Test : 25 sec (20 height mat table witht UE) TREATMENT: Therapeutic Exercise: 6: Hooklying lumbar rotation 10 sec holds, 6x each 7: Hooklying pelvic tilts 2x10 8: LEFT heel slides 2x10 9: Supine L hip ABD x10 in small range worked well 13: Standing forward toe taps on Bosu with B UE support 2x10 taping 1/2 way up from bottom 14: Standing side toe taps on Bosu with B UE support 2x10 taping 1/2 way up from bottom Skilled Intervention: Patient was educated in proper exercise technique and purpose for exercises. Skilled judgment was provided in selection of appropriate interventions. Manual Therapy: 2: L leg traction with intermittent pulling and oscillaltion 10 minutes. 4: Posterior mobs for L hip 3x10, grade I-II 5: Lateral L hip mobs with belt 3x10, Grade I-II Skilled Intervention: Manual skills to improve joint mobility, ROM, and decrease pain. Utilized anatomy knowledge of the therapist, and assessment of patient's response to intervention. Billing: [facility]: Therapeutic Exercise ([id number]): 1:1 time: 24 minutes (2 units: 23-37 mins) Manual Therapy ([id number]): 1:1 time: 18minutes (1 unit: 8-22 mins) Total time: 42 minutes Sofiya Myers PT PROGRESS Observed: 07/12/2018 Status: COMPLETED Source: [place] 12:09 PM [facility] REPOSITORY HNO ID: [id number] Author: aMrci Muhammad LPN Service: (none) Author Type: (none) Type: Progress Notes Filed: 07/12/2018 12:09 PM Note Text: 73 year old female here for INACTIVATED INFLUENZA VACCINE. 5548-6296 Season Patient is identified by name and date of : Yes [] CONTRAINDICATIONS color enhanced section Age less than 6 months? No Allergy to eggs, chicken, chicken feathers, or chicken dander? No Allergy to thimerosal (a preservative) or formaldehyde, gelatin? No History of severe reaction to any vaccine component or a previous dose of influenza vaccination? No History of Guillain-Keswick Syndrome within 6 weeks after a previous influenza vaccine? No Patient is not moderately or severely ill? No Current temperature greater or equal to 100.4F? No History of Bone Marrow Transplant prior 6 months or solid organ transplant in the past 3 months ? No History of fainting after a prior injection or medical procedure? No- ? If patient has fainted in the past, the CDC recommends sitting or lying down for 15 minutes after the vaccination. [] VERIFICATION color enhanced section Was the answer Yes for any of the above contraindications? No contraindications present. Acceptable to proceed with vaccine. Patient/guardian agrees the above answers are true to the best of their knowledge? Yes Flu vaccine information sheet given? Yes See immunization activity in [facility] for details of immunizations adminstered today. Patient age: [age] year old For The 5153-5181 Flu Season 6-35 months old: Fluzone 0.25 ml - IM (Preservative Free) 3 years of age: Fluzone 0.5 ml - IM (Preservative Free) 3 years and older: Fluzone 0.5 ml- IM-(with Preservatives) 65+ years old: 2-49 years old Fluzone High-Dose 0.5 ml - IM (Preservative Free) FLUMIST- intranasal REMEMBER: If patient is less than 9 years of age and this is the first vaccine of Influenza to be received in any flu season, they should receive a second dose in one months time. CNNURSE Observed: 07/12/2018 Status: COMPLETED Source: [place] 11:50 AM [facility] REPOSITORY Nurse Visit (FAMPWS) VENICE CROFT ([id number]) 1945 F Date Time Provider Department 07/12/18 11:50 AM [facility] NURSE FAMPWS During your visit today, we recorded the following information about you: Temperature 96.6 degrees Marci Jb ALVARADO 07/12/2018 12:09 PM Signed 73 year old female here for INACTIVATED INFLUENZA VACCINE. Season Patient is identified by name and date of : Yes [] CONTRAINDICATIONS color enhanced section Age less than 6 months? No Allergy to eggs, chicken, chicken feathers, or chicken dander? No Allergy to thimerosal (a preservative) or formaldehyde, gelatin? No History of severe reaction to any vaccine component or a previous dose of influenza vaccination? No History of Guillain-Keswick Syndrome within 6 weeks after a previous influenza vaccine? No Patient is not moderately or severely ill? No Current temperature greater or equal to 100.4F? No History of Bone Marrow Transplant prior 6 months or solid organ transplant in the past 3 months ? No History of fainting after a prior injection or medical procedure? No- ? If patient has fainted in the past, the CDC recommends sitting or lying down for 15 minutes after the vaccination. [] VERIFICATION color enhanced section Was the answer Yes for any of the above contraindications? No contraindications present. Acceptable to proceed with vaccine. Patient/guardian agrees the above answers are true to the best of their knowledge? Yes Flu vaccine information sheet given? Yes See immunization activity in [facility] for details of immunizations adminstered today. Patient age: [age] year old For The 3423-3130 Flu Season 6-35 months old: Fluzone 0.25 ml - IM (Preservative Free) 3 years of age: Fluzone 0.5 ml - IM (Preservative Free) 3 years and older: Fluzone 0.5 ml- IM-(with Preservatives) 65+ years old: 2-49 years old Fluzone High-Dose 0.5 ml - IM (Preservative Free) FLUMIST- intranasal REMEMBER: If patient is less than 9 years of age and this is the first vaccine of Influenza to be received in any flu season, they should receive a second dose in one months time. Referring Provider: SELF [200] Allergies As of Date: 07/12/2018 Noted Allergy Reaction DANIEL INHIBITORS 06/15/2005 7 - Swelling Comments: Angioedema. Lips. LIPITOR (ATORVASTATIN CALCIUM) 06/15/2005 Comments: Muscle aches PANAFIL ([id number]*08/18/2005 5 - Intolerance Comments: ? AMPICILLIN 06/15/2005 2 - Rash Comments: Bilateral arms. DARVOCET-N 100 (PROPOXYPHENE N-AC*01/31/2010 1 - Mental Status Change 14 - Other: See Comments Comments: Dizziness. PERCOCET (OXYCODONE-ACETAMINOPHEN)01/31/2010 1 - Mental Status Change Date Reviewed: 05/17/2018 Reviewed by: Jonah Cooper - Fully Assessed Reason for Visit: Imm/Inj [58] Cmt: Flu Vaccine Primary Visit Diagnosis:Need for vaccination [Z23] Order(s):INFLUENZA SEASONAL HIGH DOSE AGE 65+ [[id number]] Order #: [id number] Prescriptions as of 07/12/2018 Sig: SIMVASTATIN 20 MG TABLET TAKE 0.5 TABLETS BY MOUTH MATTHEW* CETIRIZINE 10 MG TABLET Take 1 tablet by mouth once d* METHYLPREDNISOLONE 4 MG TABLE* As Instructed per package Patient not taking: Reported on 05/02/2018 MELOXICAM 15 MG TABLET Take 1 tablet by mouth once d* COMPOUNDED PRESCRIPTION KNEE HIGH COMPRESSION STOCKIN* HYDROCHLOROTHIAZIDE 25 MG TAB* TAKE 0.5 TABLETS BY MOUTH ONC* FLUTICASONE 50 MCG/ACTUATION * Use 2 Sprays in each nostril * MUCINEX DM ORAL Take by mouth twice daily. LANSOPRAZOLE 15 MG CAPSULE,DE* Take 2 capsules by mouth ever* ASPIRIN 81 MG TABLET,DELAYED * Take 1 tablet by mouth once d* CPAP Decrease the Bilevel setting * COMPOUNDED PRESCRIPTION Home Oxygen @ 2L-4L Nasal Can* CHOLECALCIFEROL (VITAMIN D3) * Take one(1) tablet two(2) corinne* Problem List As Of Date 07/12/2018 Noted Resolved Pure Hypercholesterolemia [E78.00] INVALID FOR* More... Essential hypertension [I10] INVALID FOR* More... 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 Lymphedema, not elsewhere classified [I89.0] INVALID FOR* Benign neoplasm of colon [D12.6] INVALID FOR*08/19/2012 Achilles bursitis or tendinitis [M76.60] INVALID FOR*08/19/2012 Unspecified sleep apnea [G47.30] INVALID FOR*06/13/2016 More... Non-healing surgical wound [T81.89XA] INVALID FOR*08/19/2012 Protein calorie malnutrition [E46] INVALID FOR*08/19/2012 More... PUD (peptic ulcer disease) [K27.9] INVALID FOR*08/19/2012 More... Pain in joint [M25.50] INVALID FOR*06/13/2016 Vitamin D deficiency [E55.9] INVALID FOR* Preop exam for internal medicine [Z01.818] 08/19/2012 Open wound of knee, leg (except thigh), and ank*INVALID FOR*08/19/2012 Hypertension [I10] INVALID FOR*06/13/2016 BMI 50.0-59.9, adult (HCC) [Z68.43] INVALID FOR*06/16/2014 [place] (obstructive sleep apnea) [G47.33] INVALID FOR* Pulmonary hypertension (HCC) [I27.20] INVALID FOR* BMI 45.0-49.9, adult (HCC) [Z68.42] INVALID FOR*10/15/2014 BMI 40.0-44.9, adult (HCC) [Z68.41] INVALID FOR*03/28/2017 More... Allergic rhinitis [J30.9] INVALID FOR* Impaired glucose metabolism [R73.09] INVALID FOR* More... On home oxygen therapy [Z99.81] INVALID FOR* Staphylococcus epidermidis infection [B95.7] INVALID FOR*03/28/2017 Dysphagia, unspecified(787.20) [R13.10] INVALID FOR* Morbid obesity with BMI of 50.0-59.9, adult (HC* Venous stasis dermatitis [I87.2] Pain in left hip [M25.552] INVALID FOR* Pain in the groin, left [R10.32] INVALID FOR* Encounter Status:Closed by MARCI MHUAMMAD LPN on 07/12/18 PROGRESS Observed: 07/11/2018 Status: COMPLETED Source: [place] 10:50 AM [facility] REPOSITORY O ID: [id number] Author: Sofiya (Pt) Lucia Service: (none) Author Type: Physical Therapist Type: Progress Notes Filed: 07/11/2018 10:57 AM Note Text: Episode Visit Count: 7 Therapist That Will Oversee The Plan Of Care: Sofiya Myers PT Start of Care Date: 04/12/18 Onset Date: 02/21/18 Plan of Care Certification Date: 05/14/18 Patient Identified by Name and Date of : Yes REHABILITATION AND SPORTS THERAPY PHYSICAL THERAPY TREATMENT NOTE ASSESSMENT: Venice Corft demonstrated improvements in L shoulder pain but no change in L groin/L thigh pain today. Overall she has had a reduction in the L groin/L thigh pain when sitting or moving by 2 points since starting therapy, but has not been able to resolve the pain. Patient with increased pain with L hip ABDuction. The patient may continue to benefit from continued skilled physical therapy for ther ex, manual, and modalities for pain. PLAN FOR NEXT VISIT: POC update: 07/16/18 with G Code completed 07/09/18. Review HEP. See how L shoulder is doing. SUBJECTIVE: New exercises didn't seem to change sx. A week ago sunday had a gentleman help her up from a seated position at [employer] and now her L shoulder hurts. She has difficulty lifting up her arm and reaching out to the side. L shoulder pain depends on how she is lifting. Pain Score: 5/10 (1-2/10 L groin and L thigh sitting and movement 3-4/10) Pain Location: Shoulder - Left Description: Aching Frequency: Continuous Post Treatment Pain Score: 3/10 Pain Location: Shoulder - Left (no change in L groin/ L thigh) Post Treatment Pain Description: Aching OBJECTIVE MEASURES WITH LEVEL OF FUNCTION: UE AROM R Shoulder Flex: 150 Degrees R Shoulder ABduction: 150 Degrees R Shoulder Internal Rotation (Functional): to bra line R Shoulder External Rotation (Functional): T4 L Shoulder Flex: 140 Degrees (painful throughout whole motion) L Shoulder ABduction: 140 Degrees (painful through whole motion) L Shoulder Internal Rotation (Functional): greater trochanter L Shoulder External Rotation (Functional): back of neck Gait Gait Observation: Nil antalgic gait on the L using cane on the R TREATMENT: Therapeutic Exercise: 4: PROM L single knee to chest as patient unable to lift leg d/t L shoulder pain 6: Hooklying lumbar rotation 10 sec holds, 6x each 7: Hooklying pelvic tilts 2x10 8: LEFT heel slides 2x10 9: Supine L hip ABD x5 stopped d/t increased pain 11: *Supine AAROM with cane for L shoulder flexion x10, 5 sec holds 12: *Supine AAROM with cane for L shoulder ER with towel under forearm x10, 5 sec holds 15: 2 perez forward step ups L and R foot on step x10 each B UE support AND Lateral step ups 1x10 each, B (increased L grion and thigh pain.) 17: Side Stepping 5x each side the length of // bars with B UE support 18: Supine Hip ABD, caused L groin pain, so d/c Skilled Intervention: Patient was educated in proper exercise technique and purpose for exercises. Skilled judgment was provided in selection of appropriate interventions. Billing: [facility]: Therapeutic Exercise ([id number]): 1:1 time: 42 minutes (3 units: 38-52 mins) Total time: 42 minutes Sofiya Myers PT CNTHERAPY Observed: 07/09/2018 Status: COMPLETED Source: [place] 10:45 AM [facility] REPOSITORY OT/PT/Speech Visit (PTWS) VENICE CROFT ([id number]) 1945 F Date Time Provider Department 07/09/18 10:45 AM SOFIYA MYERSPT) PTWS Date Time Provider Department Center 07/09/2018 10:45 AM [id number], DIANA (PT)PTWS [facility] Reason for Visit: Physical Therapy [503] Primary Visit Diagnosis:Pain in left hip [M25.552] Other Visit Diagnosis:Pain in the groin, left [R10.32] Allergies As of Date: 07/09/2018 Noted Allergy Reaction DANIEL INHIBITORS 06/15/2005 7 - Swelling Comments: Angioedema. Lips. LIPITOR (ATORVASTATIN CALCIUM) 06/15/2005 Comments: Muscle aches PANAFIL ([id number]*08/18/2005 5 - Intolerance Comments: ? AMPICILLIN 06/15/2005 2 - Rash Comments: Bilateral arms. DARVOCET-N 100 (PROPOXYPHENE N-AC*01/31/2010 1 - Mental Status Change 14 - Other: See Comments Comments: Dizziness. PERCOCET (OXYCODONE-ACETAMINOPHEN)01/31/2010 1 - Mental Status Change Date Reviewed: 05/17/2018 Reviewed by: Jonah Cooper - Fully Assessed Prescriptions as of 07/09/2018 Sig: SIMVASTATIN 20 MG TABLET TAKE 0.5 TABLETS BY MOUTH MATTHEW* CETIRIZINE 10 MG TABLET Take 1 tablet by mouth once d* METHYLPREDNISOLONE 4 MG TABLE* As Instructed per package Patient not taking: Reported on 05/02/2018 MELOXICAM 15 MG TABLET Take 1 tablet by mouth once d* COMPOUNDED PRESCRIPTION KNEE HIGH COMPRESSION STOCKIN* HYDROCHLOROTHIAZIDE 25 MG TAB* TAKE 0.5 TABLETS BY MOUTH ONC* FLUTICASONE 50 MCG/ACTUATION * Use 2 Sprays in each nostril * MUCINEX DM ORAL Take by mouth twice daily. LANSOPRAZOLE 15 MG CAPSULE,DE* Take 2 capsules by mouth ever* ASPIRIN 81 MG TABLET,DELAYED * Take 1 tablet by mouth once d* CPAP Decrease the Bilevel setting * COMPOUNDED PRESCRIPTION Home Oxygen @ 2L-4L Nasal Can* CHOLECALCIFEROL (VITAMIN D3) * Take one(1) tablet two(2) corinne* Progress Notes: Sofiya Myers PT 07/11/2018 10:57 AM Signed Episode Visit Count: 7 Therapist That Will Oversee The Plan Of Care: Sofiya Myers PT Start of Care Date: 04/12/18 Onset Date: 02/21/18 Plan of Care Certification Date: 05/14/18 Patient Identified by Name and Date of : Yes REHABILITATION AND SPORTS THERAPY PHYSICAL THERAPY TREATMENT NOTE ASSESSMENT: [place] Croft demonstrated improvements in L shoulder pain but no change in L groin/L thigh pain today. Overall she has had a reduction in the L groin/L thigh pain when sitting or moving by 2 points since starting therapy, but has not been able to resolve the pain. Patient with increased pain with L hip ABDuction. The patient may continue to benefit from continued skilled physical therapy for ther ex, manual, and modalities for pain. PLAN FOR NEXT VISIT: POC update: 07/16/18 with Vivian Code completed 07/09/18. Review HEP. See how L shoulder is doing. SUBJECTIVE: New exercises didn't seem to change sx. A week ago sunday had a gentleman help her up from a seated position at [employer] and now her L shoulder hurts. She has difficulty lifting up her arm and reaching out to the side. L shoulder pain depends on how she is lifting. Pain Score: 5/10 (1-2/10 L groin and L thigh sitting and movement 3-4/10) Pain Location: Shoulder - Left Description: Aching Frequency: Continuous Post Treatment Pain Score: 3/10 Pain Location: Shoulder - Left (no change in L groin/ L thigh) Post Treatment Pain Description: Aching OBJECTIVE MEASURES WITH LEVEL OF FUNCTION: UE AROM R Shoulder Flex: 150 Degrees R Shoulder ABduction: 150 Degrees R Shoulder Internal Rotation (Functional): to bra line R Shoulder External Rotation (Functional): T4 L Shoulder Flex: 140 Degrees (painful throughout whole motion) L Shoulder ABduction: 140 Degrees (painful through whole motion) L Shoulder Internal Rotation (Functional): greater trochanter L Shoulder External Rotation (Functional): back of neck Gait Gait Observation: Nil antalgic gait on the L using cane on the R TREATMENT: Therapeutic Exercise: 4: PROM L single knee to chest as patient unable to lift leg d/t L shoulder pain 6: Hooklying lumbar rotation 10 sec holds, 6x each 7: Hooklying pelvic tilts 2x10 8: LEFT heel slides 2x10 9: Supine L hip ABD x5 stopped d/t increased pain 11: *Supine AAROM with cane for L shoulder flexion x10, 5 sec holds 12: *Supine AAROM with cane for L shoulder ER with towel under forearm x10, 5 sec holds 15: 2 perez forward step ups L and R foot on step x10 each B UE support AND Lateral step ups 1x10 each, B (increased L grion and thigh pain.) 17: Side Stepping 5x each side the length of // bars with B UE support 18: Supine Hip ABD, caused L groin pain, so d/c Skilled Intervention: Patient was educated in proper exercise technique and purpose for exercises. Skilled judgment was provided in selection of appropriate interventions. Billing: [facility]: Therapeutic Exercise ([id number]): 1:1 time: 42 minutes (3 units: 38-52 mins) Total time: 42 minutes Sofiya Myers PT PROGRESS Observed: 06/18/2018 Status: COMPLETED Source: [place] 10:12 AM [facility] [place] REPOSIT[facility] HNO ID: [id number] Author: Sofiya (Pt) Lucia Service: (none) Author Type: Physical Therapist Type: Progress Notes Filed: 06/22/2018 2:41 PM Note Text: Episode Visit Count: 6 Therapist That Will Oversee The Plan Of Care: Sofiya Myers PT Start of Care Date: 04/12/18 Onset Date: 02/21/18 Plan of Care Certification Date: 05/14/18 REHABILITATION AND SPORTS THERAPY PHYSICAL THERAPY TREATMENT NOTE ASSESSMENT: [place] Croft demonstrated slight change in L Groin/Thigh pain but reported she had L buttock pain after exercising. The patient will continue to benefit from continued skilled physical therapy for LE strengthening and manual to help improve L groin and L thigh symptoms. PLAN FOR NEXT VISIT: How did new exercises go. Row 15 AND 17. Try manual traction of L hip SUBJECTIVE: Took 3 days after last PT session to get back in gear again. Yesterday and today seemed to have changed for the better. Pain Score: (2-3/10 groin and thigh 2/10. Thigh goes to 4/10 standing) Pain Location: Groin - Left;Thigh - Left Description: Aching Frequency: Continuous Post Treatment Pain Score: 2/10 (L buttock 2-3/10 new since exercising) Pain Location: Groin - Left;Thigh - Left OBJECTIVE MEASURES WITH LEVEL OF FUNCTION: Gait Gait Observation: Slight antalgic gait on the L using cane on the R Patient requires the use of her cane to life her L leg up onto the mat table. TREATMENT: Therapeutic Exercise: 1: Seated B hip ER (aka seated clamshells) with peach band 3x10 2: Seated hip IR 3x10, B 3: Double knee to chest with strap unable to perform 4: *Single knee to chest with strap 10 sec holds, 6x with help with strap, B 5: Tried Bridging and marching. Too much effort with bridging and pain in L hip with marching. 6: *Hooklying lumbar rotation 10 sec holds, 6x each (cues to perform in pain free range) 7: *Hooklying pelvic tilts 2x10 8: Assisted LEFT heel slides with green strap 1x10 (patient reported it caused her to use increased effort) 10: Seated Recumbent Stepper Seat 16, level 1, arms 5, 5 minutes Skilled Intervention: Patient was educated in proper exercise technique and purpose for exercises. Reviewed and educated patient on additions/changes for home exercise program as above (*) Billing: [facility]: Therapeutic Exercise ([id number]): 1:1 time: 40 minutes (3 units: 38-52 mins) Total time: 40 minutes Sofiya Myers PT CNTHERAPY Observed: 06/18/2018 Status: COMPLETED Source: [place] 10:00 AM [facility] REPOSITORY OT/PT/Speech Visit (PTWS) VENICE CROFT ([id number]) 1945 F Date Time Provider Department 06/18/18 10:00 AM SOFIYA MYERSPT) PTWS Date Time Provider Department Center 06/18/2018 10:00 AM [id number], DIANA (PT)[facility]WS [facility] Reason for Visit: Physical Therapy [503] Primary Visit Diagnosis:Pain in left hip [M25.552] Other Visit Diagnosis:Pain in the groin, left [R10.32] Allergies As of Date: 06/18/2018 Noted Allergy Reaction DANIEL INHIBITORS 06/15/2005 7 - Swelling Comments: Angioedema. Lips. LIPITOR (ATORVASTATIN CALCIUM) 06/15/2005 Comments: Muscle aches PANAFIL ([id number]*08/18/2005 5 - Intolerance Comments: ? AMPICILLIN 06/15/2005 2 - Rash Comments: Bilateral arms. DARVOCET-N 100 (PROPOXYPHENE N-AC*01/31/2010 1 - Mental Status Change 14 - Other: See Comments Comments: Dizziness. PERCOCET (OXYCODONE-ACETAMINOPHEN)01/31/2010 1 - Mental Status Change Date Reviewed: 05/17/2018 Reviewed by: Jonah Cooper - Fully Assessed Prescriptions as of 06/18/2018 Sig: CETIRIZINE 10 MG TABLET Take 1 tablet by mouth once d* METHYLPREDNISOLONE 4 MG TABLE* As Instructed per package Patient not taking: Reported on 05/02/2018 MELOXICAM 15 MG TABLET Take 1 tablet by mouth once d* COMPOUNDED PRESCRIPTION KNEE HIGH COMPRESSION STOCKIN* HYDROCHLOROTHIAZIDE 25 MG TAB* TAKE 0.5 TABLETS BY MOUTH ONC* FLUTICASONE 50 MCG/ACTUATION * Use 2 Sprays in each nostril * MUCINEX DM ORAL Take by mouth twice daily. SIMVASTATIN 20 MG TABLET Take 0.5 tablets by mouth matthew* LANSOPRAZOLE 15 MG CAPSULE,DE* Take 2 capsules by mouth ever* ASPIRIN 81 MG TABLET,DELAYED * Take 1 tablet by mouth once d* CPAP Decrease the Bilevel setting * COMPOUNDED PRESCRIPTION Home Oxygen @ 2L-4L Nasal Can* CHOLECALCIFEROL (VITAMIN D3) * Take one(1) tablet two(2) corinne* Progress Notes: Sofiya Myers PT 06/22/2018 2:41 PM Signed Episode Visit Count: 6 Therapist That Will Oversee The Plan Of Care: Sofiya Myers PT Start of Care Date: 04/12/18 Onset Date: 02/21/18 Plan of Care Certification Date: 05/14/18 REHABILITATION AND SPORTS THERAPY PHYSICAL THERAPY TREATMENT NOTE ASSESSMENT: [place] Croft demonstrated slight change in L Groin/Thigh pain but reported she had L buttock pain after exercising. The patient will continue to benefit from continued skilled physical therapy for LE strengthening and manual to help improve L groin and L thigh symptoms. PLAN FOR NEXT VISIT: How did new exercises go. Row 15 AND 17. Try manual traction of L hip SUBJECTIVE: Took 3 days after last PT session to get back in gear again. Yesterday and today seemed to have changed for the better. Pain Score: (2-3/10 groin and thigh 2/10. Thigh goes to 4/10 standing) Pain Location: Groin - Left;Thigh - Left Description: Aching Frequency: Continuous Post Treatment Pain Score: 2/10 (L buttock 2-3/10 new since exercising) Pain Location: Groin - Left;Thigh - Left OBJECTIVE MEASURES WITH LEVEL OF FUNCTION: Gait Gait Observation: Slight antalgic gait on the L using cane on the R Patient requires the use of her cane to life her L leg up onto the mat table. TREATMENT: Therapeutic Exercise: 1: Seated B hip ER (aka seated clamshells) with peach band 3x10 2: Seated hip IR 3x10, B 3: Double knee to chest with strap unable to perform 4: *Single knee to chest with strap 10 sec holds, 6x with help with strap, B 5: Tried Bridging and marching. Too much effort with bridging and pain in L hip with marching. 6: *Hooklying lumbar rotation 10 sec holds, 6x each (cues to perform in pain free range) 7: *Hooklying pelvic tilts 2x10 8: Assisted LEFT heel slides with green strap 1x10 (patient reported it caused her to use increased effort) 10: Seated Recumbent Stepper Seat 16, level 1, arms 5, 5 minutes Skilled Intervention: Patient was educated in proper exercise technique and purpose for exercises. Reviewed and educated patient on additions/changes for home exercise program as above (*) Billing: [facility]: Therapeutic Exercise ([id number]): 1:1 time: 40 minutes (3 units: 38-52 mins) Total time: 40 minutes Sofiya Myers PT PROGRESS Observed: 06/11/2018 Status: COMPLETED Source: [place] 10:15 AM [facility] REPOSITORY O ID: [id number] Author: Sofiya WisePtMary Kate Myers Service: (none) Author Type: Physical Therapist Type: Progress Notes Filed: 06/12/2018 6:29 PM Note Text: Episode Visit Count: 5 Therapist That Will Oversee The Plan Of Care: Sofiya Myers PT Start of Care Date: 04/12/18 Onset Date: 02/21/18 Plan of Care Certification Date: 05/14/18 Patient Identified by Name and Date of : Yes REHABILITATION AND SPORTS THERAPY PHYSICAL THERAPY PROGRESS REPORT PLAN OF CARE UPDATE: Assessment: [place] Croft exhibits difficulty with sitting and standing due to L hip and L groin pain. She continues to be limited with sitting, rising from a chair, standing, walking and recreational activities. She is progressing slower than expected towards her therapy goals as demonstrated by: pain levels, documented subjective information on progress and documented objective information regarding overall function. [place] Croft demonstrated temporary relief from L leg traction. When in hooklying took pressure off L side. Tried ultrasound on L groin to see if would help with symptoms. Will assess at next visit. She will benefit from continued skilled therapy requiring ther ex, manual, and ultrasound to help with L hip and L groin pain. Functional gains: Increased independence with HEP Goals updated on 06/11/2018. [place] in home exercise program.--MET for current HEP Patient will decrease pain rating by 2 points to meet minimal clinical important difference for numeric pain rating scale. (Goal: 2/10 with sitting and 4/10 with walking--progressing Perform sleeping in bed without pain.--partially MET Demonstrate improvement on functional score: Patient will improve his/her AM-PAC T-scale score by 4 points to indicate a Minimal Clinical Important Difference. (Goal: 49.55)--Not MET Walking without an assistive device.--Not MET Patient with improve 5x STS to 20 sec to show MCID --Not Tested Patient will be able to get into and out of a car without pain.--progressing G CODE REPORTING Based on clinical assessment and the score on the AM-PAC Scale Score Assessment Tool, the G code and corresponding severity modifiers are documented below. Evaluation: 04/12/2018 Current Status: Mobility: Walking and Moving Around: G8978 CK 40-59% impaired Goal Status: Mobility: Walking and Moving Around: G8979 CK 40-59% Impaired Progress Report: 05/14/2018 Current Status: Mobility: Walking and Moving Around: G8978 CK 40-59% impaired Goal Status: Mobility: Walking and Moving Around: G8979 CK 40-59% impaired Progress Report: 06/11/2018 Current Status: Mobility: Walking and Moving Around: G8978 CK 40-59% impaired Goal Status: Mobility: Walking and Moving Around: G8979 CK 40-59% impaired Planned Interventions, Frequency, and Duration: 1x/week, 4 weeks Total Number of Visits Planned: 9 Patient to be seen for Therapeutic exercise;Manual therapy;Patient/Family/Caregiver Education;Modalities;Self- detention management;Functional training;General ConditioningUltrasound PLAN FOR NEXT VISIT: Assess US delayed effects. Possibly schedule more visits based on response of US. Pt wanted to wait. Try belt traction SUBJECTIVE: Patient did her new exercises. Once in awhile she can lay in bed and doesn't hurt. This ocurred one time. Patient does not find she has the same degree of L buttock sx as she did. She finds it is more L groin related. Has not sought out a second opinion from an ortho doctor yet. Pain Score: (Sittin/10 AND Standing/Walkin-8/10) Pain Location: Groin - Left;Thigh - Left Description: Aching Frequency: Continuous Post Treatment Pain Score: 5/10 Pain Location: Groin - Left;Thigh - Left Post Treatment Pain Description: Aching OBJECTIVE MEASURES WITH LEVEL OF FUNCTION: Gait Gait Observation: Slight antalgic gait on the L using cane on the R TREATMENT: Therapeutic Exercise: 10: Seated Recumbent Stepper Seat 16, level 1, arms 5, 5 minutes 16: Seated LEFT Hamstring Stretch 10 sec holds, 3x Skilled Intervention: Patient was educated in proper exercise technique and purpose for exercises. Skilled judgment was provided in selection of appropriate interventions. Patient education as noted to continue with her HEP Manual Therapy: 2: L leg traction with intermittent pulling and oscillaltion 10 minutes. Patient reported brief relief of L groin sx and then returned Skilled Intervention: Manual skills to improve joint mobility, ROM, and decrease pain. Utilized anatomy knowledge of the therapist, and assessment of patient's response to intervention. Education in role of trying traction. Modalities: Ultrasound Body Region Treated - Ultrasound: L Groin Patient Position: Supine Mode: 50% w/cm2: 1 MHZ: 1 Minutes: 15 See flowsheet for details regarding treatment. Skilled Intervention: Proper administration and selection of modality based on clinical presentation, deficits, and needs. Patient response monitored throughout treatment. Billing: [facility]: Therapeutic Exercise ([id number]): 1:1 time: 15 minutes (1 unit: 8-22 mins) Manual Therapy ([id number]): 1:1 time: 10 minutes (1 unit: 8-22 mins) Modalities Ultrasound ([id number]) 1:1 time: 15 minutes1 unit: 8-22 mins Total time: 40 minutes Sofiya Myers PT CNTHERAPY Observed: 06/11/2018 Status: COMPLETED Source: [place] 10:00 AM [facility] REPOSITORY OT/PT/Speech Visit (PTWS) VENICE CROFT ([id number]) 1945 F Date Time Provider Department 06/11/18 10:00 AM SOFIYA MYERS (PT) PTWS Date Time Provider Department Center 06/11/2018 10:00 AM [id number], DIANA (PT)PTWS [facility] Reason for Visit: PT Progress Note [1596] Primary Visit Diagnosis:Pain in left hip [M25.552] Other Visit Diagnosis:Pain in the groin, left [R10.32] Allergies As of Date: 06/11/2018 Noted Allergy Reaction DANIEL INHIBITORS 06/15/2005 7 - Swelling Comments: Angioedema. Lips. LIPITOR (ATORVASTATIN CALCIUM) 06/15/2005 Comments: Muscle aches PANAFIL ([id number]*08/18/2005 5 - Intolerance Comments: ? AMPICILLIN 06/15/2005 2 - Rash Comments: Bilateral arms. DARVOCET-N 100 (PROPOXYPHENE N-AC*01/31/2010 1 - Mental Status Change 14 - Other: See Comments Comments: Dizziness. PERCOCET (OXYCODONE-ACETAMINOPHEN)01/31/2010 1 - Mental Status Change Date Reviewed: 05/17/2018 Reviewed by: Jonah Cooper - Fully Assessed Prescriptions as of 06/11/2018 Sig: CETIRIZINE 10 MG TABLET Take 1 tablet by mouth once d* METHYLPREDNISOLONE 4 MG TABLE* As Instructed per package Patient not taking: Reported on 05/02/2018 MELOXICAM 15 MG TABLET Take 1 tablet by mouth once d* COMPOUNDED PRESCRIPTION KNEE HIGH COMPRESSION STOCKIN* HYDROCHLOROTHIAZIDE 25 MG TAB* TAKE 0.5 TABLETS BY MOUTH ONC* FLUTICASONE 50 MCG/ACTUATION * Use 2 Sprays in each nostril * MUCINEX DM ORAL Take by mouth twice daily. SIMVASTATIN 20 MG TABLET Take 0.5 tablets by mouth matthew* LANSOPRAZOLE 15 MG CAPSULE,DE* Take 2 capsules by mouth ever* ASPIRIN 81 MG TABLET,DELAYED * Take 1 tablet by mouth once d* CPAP Decrease the Bilevel setting * COMPOUNDED PRESCRIPTION Home Oxygen @ 2L-4L Nasal Can* CHOLECALCIFEROL (VITAMIN D3) * Take one(1) tablet two(2) corinne* Progress Notes: Sofiya Myers PT 06/12/2018 6:29 PM Signed Episode Visit Count: 5 Therapist That Will Oversee The Plan Of Care: Sofiya Myers PT Start of Care Date: 04/12/18 Onset Date: 02/21/18 Plan of Care Certification Date: 05/14/18 Patient Identified by Name and Date of : Yes REHABILITATION AND SPORTS THERAPY PHYSICAL THERAPY PROGRESS REPORT PLAN OF CARE UPDATE: Assessment: [place] Croft exhibits difficulty with sitting and standing due to L hip and L groin pain. She continues to be limited with sitting, rising from a chair, standing, walking and recreational activities. She is progressing slower than expected towards her therapy goals as demonstrated by: pain levels, documented subjective information on progress and documented objective information regarding overall function. [place] Croft demonstrated temporary relief from L leg traction. When in hooklying took pressure off L side. Tried ultrasound on L groin to see if would help with symptoms. Will assess at next visit. She will benefit from continued skilled therapy requiring ther ex, manual, and ultrasound to help with L hip and L groin pain. Functional gains: Increased independence with HEP Goals updated on 06/11/2018. [place] in home exercise program.--MET for current HEP Patient will decrease pain rating by 2 points to meet minimal clinical important difference for numeric pain rating scale. (Goal: 2/10 with sitting and 4/10 with walking--progressing Perform sleeping in bed without pain.--partially MET Demonstrate improvement on functional score: Patient will improve his/her AM-PAC T-scale score by 4 points to indicate a Minimal Clinical Important Difference. (Goal: 49.55)--Not MET Walking without an assistive device.--Not MET Patient with improve 5x STS to 20 sec to show MCID --Not Tested Patient will be able to get into and out of a car without pain.--progressing G CODE REPORTING Based on clinical assessment and the score on the AM-PAC Scale Score Assessment Tool, the G code and corresponding severity modifiers are documented below. Evaluation: 04/12/2018 Current Status: Mobility: Walking and Moving Around: G8978 CK 40-59% impaired Goal Status: Mobility: Walking and Moving Around: G8979 CK 40-59% Impaired Progress Report: 05/14/2018 Current Status: Mobility: Walking and Moving Around: G8978 CK 40-59% impaired Goal Status: Mobility: Walking and Moving Around: G8979 CK 40-59% impaired Progress Report: 06/11/2018 Current Status: Mobility: Walking and Moving Around: G8978 CK 40-59% impaired Goal Status: Mobility: Walking and Moving Around: G8979 CK 40-59% impaired Planned Interventions, Frequency, and Duration: 1x/week, 4 weeks Total Number of Visits Planned: 9 Patient to be seen for Therapeutic exercise;Manual therapy;Patient/Family/Caregiver Education;Modalities;Self- detention management;Functional training;General ConditioningUltrasound PLAN FOR NEXT VISIT: Assess US delayed effects. Possibly schedule more visits based on response of US. Pt wanted to wait. Try belt traction SUBJECTIVE: Patient did her new exercises. Once in awhile she can lay in bed and doesn't hurt. This ocurred one time. Patient does not find she has the same degree of L buttock sx as she did. She finds it is more L groin related. Has not sought out a second opinion from an ortho doctor yet. Pain Score: (Sittin/10 AND Standing/Walkin-8/10) Pain Location: Groin - Left;Thigh - Left Description: Aching Frequency: Continuous Post Treatment Pain Score: 5/10 Pain Location: Groin - Left;Thigh - Left Post Treatment Pain Description: Aching OBJECTIVE MEASURES WITH LEVEL OF FUNCTION: Gait Gait Observation: Slight antalgic gait on the L using cane on the R TREATMENT: Therapeutic Exercise: 10: Seated Recumbent Stepper Seat 16, level 1, arms 5, 5 minutes 16: Seated LEFT Hamstring Stretch 10 sec holds, 3x Skilled Intervention: Patient was educated in proper exercise technique and purpose for exercises. Skilled judgment was provided in selection of appropriate interventions. Patient education as noted to continue with her HEP Manual Therapy: 2: L leg traction with intermittent pulling and oscillaltion 10 minutes. Patient reported brief relief of L groin sx and then returned Skilled Intervention: Manual skills to improve joint mobility, ROM, and decrease pain. Utilized anatomy knowledge of the therapist, and assessment of patient's response to intervention. Education in role of trying traction. Modalities: Ultrasound Body Region Treated - Ultrasound: L Groin Patient Position: Supine Mode: 50% w/cm2: 1 MHZ: 1 Minutes: 15 See flowsheet for details regarding treatment. Skilled Intervention: Proper administration and selection of modality based on clinical presentation, deficits, and needs. Patient response monitored throughout treatment. Billing: [facility]: Therapeutic Exercise ([id number]): 1:1 time: 15 minutes (1 unit: 8-22 mins) Manual Therapy ([id number]): 1:1 time: 10 minutes (1 unit: 8-22 mins) Modalities Ultrasound ([id number]) 1:1 time: 15 minutes1 unit: 8-22 mins Total time: 40 minutes Sofiya Myers PT PROGRESS Observed: 06/04/2018 Status: COMPLETED Source: [place] 10:18 AM [facility] REPOSITORY O ID: [id number] Author: Sofiya Myers Service: (none) Author Type: Physical Therapist Type: Progress Notes Filed: 06/04/2018 11:13 AM Note Text: Episode Visit Count: 4 Therapist That Will Oversee The Plan Of Care: Sofiya Myers PT Start of Care Date: 04/12/18 Onset Date: 02/21/18 Plan of Care Certification Date: 05/14/18 Patient Identified by Name and Date of : Yes REHABILITATION AND SPORTS THERAPY PHYSICAL THERAPY TREATMENT NOTE ASSESSMENT: [place] Croft demonstrated slight improvements in L groin and L hip pain at the end of today's session with sitting and standing. Provided patient with other [facility] orthopedic specialists she may want to reach out to get get another opinion on her L groin/hip pain. Progressed to standing exercies and added peach band to B hip ER (aka clamshells). The patient will continue to benefit from continued skilled physical therapy for exercise and manual for assistance with pain relief. PLAN FOR NEXT VISIT: POC update: 06/11/18 and 05/28/18 did [facility]. See how HS stretch, peach resistance band and side stepping went SUBJECTIVE: Patient has been using her cane to walk and feels like she is not limping when using the cane. Has been marching from her living room to her bed room. Patient feels like her L leg wants to bend more. Has not fallen. Patient has to lift L leg into car using cane as too painful to perform actively Pain Score: (Sittin/10 AND Standing/Walkin/10) Pain Location: Hip - Left;Groin - Left Description: Aching Frequency: Continuous Post Treatment Pain Score: (Sittin-3/10 Walkin-5/10) OBJECTIVE MEASURES WITH LEVEL OF FUNCTION: Gait Gait Observation: No antalgic gait on L due to using a std cane on R. Better tolerance to STS from mat table at height of 21 as did not have the L sided hip pain. TREATMENT: Therapeutic Exercise: 1: *Seated B hip ER (aka seated clamshells) 2x10 and THEN added peach band 2x10 (issued peach band for HEP) 2: Seated hip IR 2x10, B 3: Standing marching at // bars with BUE support 30 sec, 2x 5: Standing hip flexor stretch pushing hips forward 10 sec, 6x 10: Seated Recumbent Stepper Seat 16, level 1, arms 5, 5 minutes (collected subjective during exercise) 11: Standing hip flexion, abduction, extension, CW/CCW circles 2x10 for L and R leg with B UE support inside // bars 13: STS from 2nd mat table height 21 with BUE assistance 2x10 (more she did the better her L hip felt) 15: 2 perez forward step ups L foot on step (inital step caused L grion and hip pain) and then R foot on step x10 each B UE support AND Lateral step ups 1x10 each, B 16: *Seated LEFT Hamstring Stretch 10 sec holds, 3x 17: Side Stepping 5x each side the length of // bars with B UE support Skilled Intervention: Patient was educated in proper exercise technique and purpose for exercises. Reviewed and educated patient on additions/changes for home exercise program as above (*) Skilled judgment was provided in selection of appropriate interventions. Provided written instruction for home exercise program to facilitate proper performance and compliance. Correct performance of therapeutic exercises was facilitated with verbal, visual and tactile cuing. Gave suggestions for orthopedic physicians for second options. Billing: [facility]: Therapeutic Exercise ([id number]): 1:1 time: 55 minutes (4 units: 53-67 mins) Total time: 55 minutes Sofiya Myers PT CNTHERAPY Observed: 06/04/2018 Status: COMPLETED Source: [place] 10:00 AM [facility] REPOSITORY OT/PT/Speech Visit (PTWS) VENICE CROFT ([id number]) 1945 F Date Time Provider Department 06/04/18 10:00 AM SOFIYA MYERS (PT) PTWS Date Time Provider Department Center 06/04/2018 10:00 AM [id number], DIANA (PT)PTWS [facility] Reason for Visit: Physical Therapy [503] Primary Visit Diagnosis:Pain in left hip [M25.552] Other Visit Diagnosis:Pain in the groin, left [R10.32] Allergies As of Date: 06/04/2018 Noted Allergy Reaction DANIEL INHIBITORS 06/15/2005 7 - Swelling Comments: Angioedema. Lips. LIPITOR (ATORVASTATIN CALCIUM) 06/15/2005 Comments: Muscle aches PANAFIL ([id number]*08/18/2005 5 - Intolerance Comments: ? AMPICILLIN 06/15/2005 2 - Rash Comments: Bilateral arms. DARVOCET-N 100 (PROPOXYPHENE N-AC*01/31/2010 1 - Mental Status Change 14 - Other: See Comments Comments: Dizziness. PERCOCET (OXYCODONE-ACETAMINOPHEN)01/31/2010 1 - Mental Status Change Date Reviewed: 05/17/2018 Reviewed by: Jonah Cooper - Fully Assessed Prescriptions as of 06/04/2018 Sig: CETIRIZINE 10 MG TABLET Take 1 tablet by mouth once d* METHYLPREDNISOLONE 4 MG TABLE* As Instructed per package Patient not taking: Reported on 05/02/2018 MELOXICAM 15 MG TABLET Take 1 tablet by mouth once d* COMPOUNDED PRESCRIPTION KNEE HIGH COMPRESSION STOCKIN* HYDROCHLOROTHIAZIDE 25 MG TAB* TAKE 0.5 TABLETS BY MOUTH ONC* FLUTICASONE 50 MCG/ACTUATION * Use 2 Sprays in each nostril * MUCINEX DM ORAL Take by mouth twice daily. SIMVASTATIN 20 MG TABLET Take 0.5 tablets by mouth matthew* LANSOPRAZOLE 15 MG CAPSULE,DE* Take 2 capsules by mouth ever* ASPIRIN 81 MG TABLET,DELAYED * Take 1 tablet by mouth once d* CPAP Decrease the Bilevel setting * COMPOUNDED PRESCRIPTION Home Oxygen @ 2L-4L Nasal Can* CHOLECALCIFEROL (VITAMIN D3) * Take one(1) tablet two(2) corinne* Progress Notes: Sofiya Myers PT 06/04/2018 11:13 AM Signed Episode Visit Count: 4 Therapist That Will Oversee The Plan Of Care: Sofiya Myers PT Start of Care Date: 04/12/18 Onset Date: 02/21/18 Plan of Care Certification Date: 05/14/18 Patient Identified by Name and Date of : Yes REHABILITATION AND SPORTS THERAPY PHYSICAL THERAPY TREATMENT NOTE ASSESSMENT: [place] Croft demonstrated slight improvements in L groin and L hip pain at the end of today's session with sitting and standing. Provided patient with other [facility] orthopedic specialists she may want to reach out to get get another opinion on her L groin/hip pain. Progressed to standing exercies and added peach band to B hip ER (aka clamshells). The patient will continue to benefit from continued skilled physical therapy for exercise and manual for assistance with pain relief. PLAN FOR NEXT VISIT: POC update: 06/11/18 and 05/28/18 did [facility]. See how HS stretch, peach resistance band and side stepping went SUBJECTIVE: Patient has been using her cane to walk and feels like she is not limping when using the cane. Has been marching from her living room to her bed room. Patient feels like her L leg wants to bend more. Has not fallen. Patient has to lift L leg into car using cane as too painful to perform actively Pain Score: (Sittin/10 AND Standing/Walkin/10) Pain Location: Hip - Left;Groin - Left Description: Aching Frequency: Continuous Post Treatment Pain Score: (Sittin-3/10 Walkin-5/10) OBJECTIVE MEASURES WITH LEVEL OF FUNCTION: Gait Gait Observation: No antalgic gait on L due to using a std cane on R. Better tolerance to STS from mat table at height of 21 as did not have the L sided hip pain. TREATMENT: Therapeutic Exercise: 1: *Seated B hip ER (aka seated clamshells) 2x10 and THEN added peach band 2x10 (issued peach band for HEP) 2: Seated hip IR 2x10, B 3: Standing marching at // bars with BUE support 30 sec, 2x 5: Standing hip flexor stretch pushing hips forward 10 sec, 6x 10: Seated Recumbent Stepper Seat 16, level 1, arms 5, 5 minutes (collected subjective during exercise) 11: Standing hip flexion, abduction, extension, CW/CCW circles 2x10 for L and R leg with B UE support inside // bars 13: STS from 2nd mat table height 21 with BUE assistance 2x10 (more she did the better her L hip felt) 15: 2 perez forward step ups L foot on step (inital step caused L grion and hip pain) and then R foot on step x10 each B UE support AND Lateral step ups 1x10 each, B 16: *Seated LEFT Hamstring Stretch 10 sec holds, 3x 17: Side Stepping 5x each side the length of // bars with B UE support Skilled Intervention: Patient was educated in proper exercise technique and purpose for exercises. Reviewed and educated patient on additions/changes for home exercise program as above (*) Skilled judgment was provided in selection of appropriate interventions. Provided written instruction for home exercise program to facilitate proper performance and compliance. Correct performance of therapeutic exercises was facilitated with verbal, visual and tactile cuing. Gave suggestions for orthopedic physicians for second options. Billing: [facility]: Therapeutic Exercise ([id number]): 1:1 time: 55 minutes (4 units: 53-67 mins) Total time: 55 minutes Sofiya Myers PT PROGRESS Observed: 05/28/2018 Status: COMPLETED Source: [place] 9:47 AM [facility] REPOSITORY HNO ID: [id number] Author: Sofiya (Pt) Lucia Service: (none) Author Type: Physical Therapist Type: Progress Notes Filed: 05/28/2018 11:21 AM Note Text: Episode Visit Count: 3 Therapist That Will Oversee The Plan Of Care: Sofiya Myers PT Start of Care Date: 04/12/18 Onset Date: 02/21/18 Plan of Care Certification Date: 05/14/18 Patient Identified by Name and Date of : Yes REHABILITATION AND SPORTS THERAPY PHYSICAL THERAPY TREATMENT NOTE ASSESSMENT: [place] Croft demonstrated no change in pain at end of session. Recommending patient use a standard cane when ambulating to see if this improves her L groin/hip pain and improves her posture. The patient will continue to benefit from continued skilled physical therapy for exercise and manual to help with pain relief. PLAN FOR NEXT VISIT: 05/28/2018 [facility] completed SUBJECTIVE: Preparing for the last dinner really did her in. Has been able to sleep in bed some but then can't find a position to sleep in that will not cause hurt. Difficulty with seated marching because she doesn't have a chair to perform in. Pain Score: (Sittin/10 Walkin-9/10) Pain Location: Hip - Left;Groin - Left Description: Aching (sometimes sharp) Frequency: Continuous Post Treatment Pain Score: No Change OBJECTIVE MEASURES WITH LEVEL OF FUNCTION: Needed leg strap to lift L leg into bed Patient with improved gait when ambulating with // bar on R side Patient using 5L O2 via nasal canula TREATMENT: Therapeutic Exercise: 1: Seated B hip ER (aka seated clamshells) 2x10 2: Seated B hip IR 2x10, B (provided cues to perform in pain free range) 3: *Standing marching at // bars with BUE support x20 (patient to perform in place of seated hip marching) 5: *Standing hip flexor stretch pushing hips forward 10 sec, 6x (patient needed to be reprovided for her HEP) 10: Seated Recumbent Stepper Seat 16, level 1, arms 5, 5 minutes (talked about trying standing marching vs seated) 11: Standing hip flexion, abduction, extension, CW/CCW circles 2x10 for L and R leg. 12: Walking with // bar on R side had less left groin pain. Suggested she return to using her cane to ensure proper posture. 13: STS from mat table with BUE assistance x10 (felt pain in L hip during each STS) 14: *Supine Piriformis stretch crossing R leg over left and pressing R knee down for 5 sec, holds 5 Skilled Intervention: Patient was educated in proper exercise technique and purpose for exercises. Reviewed and educated patient on additions/changes for home exercise program as above (*) Skilled judgment was provided in selection of appropriate interventions. Provided written instruction for home exercise program to facilitate proper performance and compliance. Correct performance of therapeutic exercises was facilitated with verbal, visual and tactile cuing. Manual Therapy: 1: IASTM to L groin with lacrosse ball for 1 minute was very painful and L buttock at piriformis with trigger point release. Push to patient tolerance for 7 minutes. Total 8 minutes (recommended patient try to perform IASTM with tennis ball) Skilled Intervention: Manual skills to improve joint mobility, ROM, and decrease pain. Utilized anatomy knowledge of the therapist, and assessment of patient's response to intervention. Billing: [facility]: Therapeutic Exercise ([id number]): 1:1 time: 35 minutes (2 units: 23-37 mins) Manual Therapy ([id number]): 1:1 time: 8 minutes (1 unit: 8-22 mins) Total time: 43 minutes Sofiya Myers PT CNTHERAPY Observed: 05/28/2018 Status: COMPLETED Source: [place] 9:15 AM [facility] [place] REPOSITORY OT/PT/Speech Visit (PTWS) ZEKEVENICE ([id number]) 1945 F Date Time Provider Department 05/28/18 9:15 AM SOFIYA MYERS (PT) PTWS Date Time Provider Department Center 05/28/2018 9:15 AM [id number], DIANA (PT)PTWS [facility] Reason for Visit: Physical Therapy [503] Primary Visit Diagnosis:Pain in left hip [M25.552] Other Visit Diagnosis:Pain in the groin, left [R10.32] Allergies As of Date: 05/28/2018 Noted Allergy Reaction DANIEL INHIBITORS 06/15/2005 7 - Swelling Comments: Angioedema. Lips. LIPITOR (ATORVASTATIN CALCIUM) 06/15/2005 Comments: Muscle aches PANAFIL ([id number]*08/18/2005 5 - Intolerance Comments: ? AMPICILLIN 06/15/2005 2 - Rash Comments: Bilateral arms. DARVOCET-N 100 (PROPOXYPHENE N-AC*01/31/2010 1 - Mental Status Change 14 - Other: See Comments Comments: Dizziness. PERCOCET (OXYCODONE-ACETAMINOPHEN)01/31/2010 1 - Mental Status Change Date Reviewed: 05/17/2018 Reviewed by: Jonah Cooper - Fully Assessed Prescriptions as of 05/28/2018 Sig: CETIRIZINE 10 MG TABLET Take 1 tablet by mouth once d* METHYLPREDNISOLONE 4 MG TABLE* As Instructed per package Patient not taking: Reported on 05/02/2018 MELOXICAM 15 MG TABLET Take 1 tablet by mouth once d* COMPOUNDED PRESCRIPTION KNEE HIGH COMPRESSION STOCKIN* HYDROCHLOROTHIAZIDE 25 MG TAB* TAKE 0.5 TABLETS BY MOUTH ONC* FLUTICASONE 50 MCG/ACTUATION * Use 2 Sprays in each nostril * MUCINEX DM ORAL Take by mouth twice daily. SIMVASTATIN 20 MG TABLET Take 0.5 tablets by mouth matthew* LANSOPRAZOLE 15 MG CAPSULE,DE* Take 2 capsules by mouth ever* ASPIRIN 81 MG TABLET,DELAYED * Take 1 tablet by mouth once d* CPAP Decrease the Bilevel setting * COMPOUNDED PRESCRIPTION Home Oxygen @ 2L-4L Nasal Can* CHOLECALCIFEROL (VITAMIN D3) * Take one(1) tablet two(2) corinne* Progress Notes: Sofiya Myers PT 05/28/2018 11:21 AM Addendum Episode Visit Count: 3 Therapist That Will Oversee The Plan Of Care: Sofiya Myers PT Start of Care Date: 04/12/18 Onset Date: 02/21/18 Plan of Care Certification Date: 05/14/18 Patient Identified by Name and Date of : Yes REHABILITATION AND SPORTS THERAPY PHYSICAL THERAPY TREATMENT NOTE ASSESSMENT: Venice Croft demonstrated no change in pain at end of session. Recommending patient use a standard cane when ambulating to see if this improves her L groin/hip pain and improves her posture. The patient will continue to benefit from continued skilled physical therapy for exercise and manual to help with pain relief. PLAN FOR NEXT VISIT: 05/28/2018 [facility] completed SUBJECTIVE: Preparing for the last dinner really did her in. Has been able to sleep in bed some but then can't find a position to sleep in that will not cause hurt. Difficulty with seated marching because she doesn't have a chair to perform in. Pain Score: (Sittin/10 Walkin-9/10) Pain Location: Hip - Left;Groin - Left Description: Aching (sometimes sharp) Frequency: Continuous Post Treatment Pain Score: No Change OBJECTIVE MEASURES WITH LEVEL OF FUNCTION: Needed leg strap to lift L leg into bed Patient with improved gait when ambulating with // bar on R side Patient using 5L O2 via nasal canula TREATMENT: Therapeutic Exercise: 1: Seated B hip ER (aka seated clamshells) 2x10 2: Seated B hip IR 2x10, B (provided cues to perform in pain free range) 3: *Standing marching at // bars with BUE support x20 (patient to perform in place of seated hip marching) 5: *Standing hip flexor stretch pushing hips forward 10 sec, 6x (patient needed to be reprovided for her HEP) 10: Seated Recumbent Stepper Seat 16, level 1, arms 5, 5 minutes (talked about trying standing marching vs seated) 11: Standing hip flexion, abduction, extension, CW/CCW circles 2x10 for L and R leg. 12: Walking with // bar on R side had less left groin pain. Suggested she return to using her cane to ensure proper posture. 13: STS from mat table with BUE assistance x10 (felt pain in L hip during each STS) 14: *Supine Piriformis stretch crossing R leg over left and pressing R knee down for 5 sec, holds 5 Skilled Intervention: Patient was educated in proper exercise technique and purpose for exercises. Reviewed and educated patient on additions/changes for home exercise program as above (*) Skilled judgment was provided in selection of appropriate interventions. Provided written instruction for home exercise program to facilitate proper performance and compliance. Correct performance of therapeutic exercises was facilitated with verbal, visual and tactile cuing. Manual Therapy: 1: IASTM to L groin with lacrosse ball for 1 minute was very painful and L buttock at piriformis with trigger point release. Push to patient tolerance for 7 minutes. Total 8 minutes (recommended patient try to perform IASTM with tennis ball) Skilled Intervention: Manual skills to improve joint mobility, ROM, and decrease pain. Utilized anatomy knowledge of the therapist, and assessment of patient's response to intervention. Billing: [facility]: Therapeutic Exercise (05062): 1:1 time: 35 minutes (2 units: 23-37 mins) Manual Therapy ([id number]): 1:1 time: 8 minutes (1 unit: 8-22 mins) Total time: 43 minutes Sofiya Myers PT Previous Version PROGRESS Observed: 05/20/2018 Status: COMPLETED Source: [place] 6:11 AM [facility] REPOSITORY O ID: [id number] Author: Sofiya (Pt) Lucia Service: (none) Author Type: Physical Therapist Type: Progress Notes Filed: 05/20/2018 6:22 AM Note Text: Episode Visit Count: 2 Therapist That Will Oversee The Plan Of Care: Sofiya Myers PT Start of Care Date: 04/12/18 Onset Date: 02/21/18 Plan of Care Certification Date: 05/14/18 Patient Identified by Name and Date of : Yes REHABILITATION AND SPORTS THERAPY PHYSICAL THERAPY PROGRESS REPORT PLAN OF CARE UPDATE: Assessment: Venice Croft exhibits difficulty with continued L groin pain and getting into and out of car and improvements in being able to walk this past week without a cane and sleeping a few hours in bed. She continues to be limited with sleeping in bed, getting into and out of a car, and pain in L groin. She was able to tolerate movement and exercise, so would like to continue to work with her focusing on exercise and manual to help improve her L groin symptoms. She is progressing as expected towards her therapy goals as demonstrated by: pain levels and documented subjective information on progress. She will benefit from continued skilled therapy requiring therapeutic exercise and manual in order to improve pain when sitting or walking. Functional gains: Improved gait quality Decreased intensity of pain Goals updated on 05/14/2018. [place] in home exercise program.--Not Established yet. To establish 05/14/18 Patient will decrease pain rating by 2 points to meet minimal clinical important difference for numeric pain rating scale. (Goal: 2/10 with sitting and 4/10 with walking--progressing Perform sleeping in bed without pain.--partially MET Demonstrate improvement on functional score: Patient will improve his/her AM-PAC T-scale score by 4 points to indicate a Minimal Clinical Important Difference. (Goal: 49.55)--Not MET Walking without an assistive device.--MET Patient with improve 5x STS to 20 sec to show MCID --Not Tested Patient will be able to get into and out of a car without pain.--progressing G CODE REPORTING Based on clinical assessment and the score on the AM-PAC Scale Score Assessment Tool, the G code and corresponding severity modifiers are documented below. Evaluation: 04/12/2018 Current Status: Mobility: Walking and Moving Around: G8978 CK 40-59% impaired Goal Status: Mobility: Walking and Moving Around: G8979 CK 40-59% Impaired Progress Report: 05/14/2018 Current Status: Mobility: Walking and Moving Around: G8978 CK 40-59% impaired Goal Status: Mobility: Walking and Moving Around: G8979 CK 40-59% impaired Planned Interventions, Frequency, and Duration: 1x/week, 8 weeks Total Number of Visits Planned: 9 Patient to be seen for PLAN FOR NEXT VISIT: See how HEP is going. Assess delayed affects of manual. 5x STS SUBJECTIVE: Patient saw Dr. Cooper on 05/02/18; however, no recommendation has been made as he has not signed his note yet. Patient drove herself today to therapy. She stopped using her cane last week. Elastic of underware bothers her L groin. Patient is able to sleep in bed for a few hours now. Patient continues to use nasal canual for O2. Pain Score: ((Sittin-4/10 Standin-5/10)) Pain Location: Hip - Left;Groin - Left Description: Aching Frequency: Continuous OBJECTIVE MEASURES WITH LEVEL OF FUNCTION: Patient with better ability to transition from supine to sitting on mat table TREATMENT: Therapeutic Exercise: 1: *Seated B hip ER (aka seated clamshells) 2x10 2: *Seated B hip IR 2x10, B 3: *Seated marching 2x10 reps (cues to perform in pain free range) 5: *Standing hip flexor stretch pushing hips forward 10 sec, 3x 6: Supine dropping L leg off alberta table increased L groin pain, discontinued 7: *Assisted LEFT heel slides with green strap 2x10 8: *Supine LEFT Hip ABDuction 2x10 9: *Sidelying LEFT clamshells 2x10 10: Seated Recumbent Stepper Seat 16, level 1, arms 5, 5 minutes Skilled Intervention: Patient was educated in proper exercise technique and purpose for exercises. Reviewed and educated patient on additions/changes for home exercise program as above (*) Skilled judgment was provided in selection of appropriate interventions. Provided written instruction for home exercise program to facilitate proper performance and compliance. Correct performance of therapeutic exercises was facilitated with verbal, visual and tactile cuing. Manual Therapy: 1: IASTM to L groin and L buttock at piriformis with trigger point release. Push to patient tolerance Skilled Intervention: Manual skills to improve joint mobility, ROM, and decrease pain. Utilized anatomy knowledge of the therapist, and assessment of patient's response to intervention. Billing: [facility]: Therapeutic Exercise ([id number]): 1:1 time: 30 minutes (2 units: 23-37 mins) Manual Therapy (21436): 1:1 time: 15 minutes (1 unit: 8-22 mins) Total time: 45 minutes Sofiya Myers PT PROGRESS Observed: 05/17/2018 Status: COMPLETED Source: [place] 7:05 AM [facility] [place] REPOSITORY HNO ID: [id number] Author: Jonah Cooper Service: (none) Author Type: Physician Type: Progress Notes Filed: 05/22/2018 7:01 AM Note Text: Jonah Cooper MD Department of Orthopaedics [facility] [address] [place] [address] Dept: [phone] Dept May 02, 2018 CHIEF COMPLAINT: New Patient (Left hip pain - Ref. Dr. Chairez) HPI: Ms. Venice Croft is a 73 year old female who has had worsening pain in the left hip at 8 out of 10. Dull but also sharp on occasion. This bothers her mostly with weightbearing. She has discomfort from the groin and deep into her posterior hip. She denies any specific injury but she was doing a walking test to check her oxygen back in February and she felt a twinge and is bothered her since. She having a difficult time lifting her leg up to get into bed or into a car for example. She took prednisone that helped the situation but as she tapers down her pain returns. She's been using a cane. ASSESSMENT: M25.552, G89.29 Chronic left hip pain (primary encounter diagnosis) M16.12 Primary osteoarthritis of left hip E66.01 Morbidly obese (HCC) PLAN: She does have moderate arthritis in the left hip. Options are certainly weight loss and possible cortisone injection. Her BMI currently is a relative contraindication to any type of arthroplasty. FOLLOW UP INSTRUCTIONS: As needed Ms. Venice Croft was advised as to contrast therapies and/or to take analgesics/anti-inflammatories as needed and all contraindications were reviewed. OBJECTIVE: Ms. Venice Croft is a pleasant 73 year old in no apparent distress. Gen:BP 145/72 Pulse 74 Ht 5' 3 (1.60m) Wt 288 lb (130.6kg) BMI 51.03 kg/(m2). nl development, Morbidly obese, no deformities ENT: Normocephalic, normal hearing, moist mucosa CV: Pulses:DP/PT= 2+ and symmetric, capillary refill < 2 secs, no peripheral edema/varicosities Skin: no rash, bruising or lesions. Good turgor. Psych: cooperative and appropriate, alert and oriented x 3, good mood and affect. Musculoskeletal: Body habitus precludes determining any specific swelling about the hip joint. She is mildly tender about the lateral hip. Flexion and internal rotation does reproduce symptoms in the groin. Flexion of the 100?, internal rotation of 20, external rotation of 30. Knee has good range of motion without pain. IMAGING: IMPRESSION: Moderate left hip degenerative arthritis. Prominent chronic osteitis pubis. Meat Cooler: PSCB ? Transcribe Date/Time: Apr 01 2018 12:39P Dictated by : WHITLEY KO MD This examination was interpreted and the report reviewed and electronically signed by: WHITLEY KO MD on Apr 01 2018 12:45PM ?EST Results-Findings * * *Final Report* * * DATE OF EXAM: Apr 01 2018 11:00AM ? WRX ? [id number] ?- ?XR HIP 3V PELV+ AP/LAT LT ?/ PROCEDURE REASON: Pain in left hip ?? ? * * * * Physician Interpretation * * * * ?EXAMINATION: ?XR HIP 3V PELV+ AP/LAT LT HISTORY: ? Pain in left hip ? . Patient/Technologist Provided History: No injury. Generalized left hip pain x several weeks TECHNIQUE: ?XR HIP 3V PELV+ AP/LAT LT ?? Laterality: ?LEFT ?? Number of different views (projections): 3 COMPARISON: CT abdomen and pelvis 12/14/2016 RESULT: No acute fracture or dislocation. Moderate joint space narrowing. ? Prominent osteitis pubis unchanged since prior CT with symphysis pubis vacuum phenomenon. ?SI joints are preserved. ?Lower lumbar spine degenerative changes. ?Right total hip arthroplasty without apparent complication. ?Radiopaque densities in the left pelvis likely represent bowel content. No other significant abnormality. Supporting Subjective Information Below: Past Medical History: PAST MEDICAL HISTORY Diagnosis Date - Allergic rhinitis - Angioneurotic edema not elsewhere classified DANIEL-I - Asthma - Benign neoplasm of colon - Bleeding ulcer - Colon cancer screening 11/14/2016 - Contact dermatitis and other eczema, due to unspecified cause - Dysphagia Dr. Boyd - Fracture - Gastroparesis - GERD (gastroesophageal reflux disease) - History of poliomyelitis age 8 - History of staph infection Seeing Dr. Rinaldi yearly, on doxycycline - Impaired glucose tolerance test - Morbid obesity with BMI of 50.0-59.9, adult (HCC) - On home oxygen therapy - Open wound of knee, leg (except thigh), and ankle, complicated - JUSTINA (obstructive sleep apnea) uses bipap nightly - Pulmonary hypertension ([facility]) Seeing Dr. Singh - Pure hypercholesterolemia - Unspecified essential hypertension - Venous stasis dermatitis Past Surgical History: PAST SURGICAL HISTORY Procedure Laterality Date - BX OF BREAST; INCISIONAL Bx of breast, incisional multiple, benign - COLONOSCOP W/ OR W/O BRSH SPEC N/A 11/14/2016 repeat in 2 years - COLONOSCOPY W/BX 10/27/08 - DANDC, DIAG AND/OR THERAPEUTIC - EMERGENCY TRACHEOTOMY Polio at the age of 8 - KNEE SCOPE,DIAGNOSTIC 1990s Arthroscopy, knee RIGHT - REMOVE CATARACT, INSERT LENS, INTRACAPSUL Bilateral 05/2016 - REMOVE TONSILS/ADENOIDS,<12 Y/O - TOTAL HIP REPLACEMENT 06/2007 Hip replacement, total right - TOTAL KNEE REPLACEMENT 12/2007 Knee replacement, total knee - TOTAL KNEE REPLACEMENT 04/24 Knee replacement, total Family History: FAMILY HISTORY Problem Relation Age of Onset - Diabetes Mother - Cancer Mother Bladder - Stroke Mother - Diabetes Maternal Aunt - Diabetes Maternal Uncle HEART DISEASE - Heart Maternal Grandmother Social History:Social History Marital status: Single Spouse name: Years of education: Number of children: 0 Occupational History Occupation Employer Comment Retired [employer] Social History Main Topics Smoking status: Never Smoker Smokeless tobacco: Never Used Comment: Parents non-smokers. Alcohol use: No Drug use: No Sexual activity: No Medications: Current Outpatient Prescriptions: meloxicam (MOBIC) 15 mg tablet Take 1 tablet by mouth once daily. Take with food. Compression Knee Highs KNEE HIGH COMPRESSION STOCKINGS 30- 40 MM. DX: EDEMA hydroCHLOROthiazide (HYDRODIURIL, ESIDRIX) 25 mg tablet TAKE 0.5 TABLETS BY MOUTH ONCE DAILY. fluticasone (FLONASE) 50 mcg/actuation nasal spray Use 2 Sprays in each nostril once daily. simvastatin (ZOCOR) 20 mg tablet Take 0.5 tablets by mouth daily at bedtime. lansoprazole (PREVACID) 15 mg capsule Take 2 capsules by mouth every evening. aspirin, enteric coated (ADULT LOW DOSE ASPIRIN) 81 mg EC tablet Take 1 tablet by mouth once daily. CPAP Decrease the Bilevel setting to 13/8 cm h20 with 3 LPM of oxygen. COMPOUNDED PRESCRIPTION Home Oxygen @ 2L-4L Nasal Canula - continuous Diagnoses: Hypoxia 799.02, Dyspnea 786.09, Pulmonary Hypertension 416.8 Cholecalciferol, Vitamin D3, (VITAMIN D) 2,000 unit ORAL Cap Take one(1) tablet two(2) times daily. cetirizine (ZYRTEC) 10 mg tablet Take 1 tablet by mouth once daily. methylPREDNISolone (MEDROL, BENJIE,) 4 mg Dose-Pack As Instructed per package (Patient not taking: Reported on 05/02/2018 ) GUAIFENESIN/DEXTROMETHORPHAN (MUCINEX DM ORAL) Take by mouth twice daily. No current facility-administered medications for this visit. Allergies: Daniel Inhibitors; Lipitor [Atorvastatin Calcium]; Panafil [Becmzr-Tthb-Zqfzwfsvaokdt]; Ampicillin; Darvocet-N 100 [Propoxyphene N-Acetaminophen]; Percocet [Oxycodone-Acetaminophen] ROS: General (negative for fatigue, malaise, weight loss/gain) HEENT (negative for headache, earache, recent vision changes, sinus pain, sore throat) Respiratory (no recent shortness of breath, hemoptysis) CV (negative for chest tightness, palpitations) Musculoskeletal (see HPI) Psych (no depression, anxiety) REFERRING PHYSICIAN: Ms. Venice Croft was referred to me for consultation by the following physician. This consultation note will be sent to the following physician by either mail or electronic medical record. Yolande Chairez MD [address] [facility] [id number] This note was partially generated using Caviar voice recognition system, and there may be some incorrect words, spellings, and punctuation that were not noted in checking the note before saving. Jonah Cooper MD CNTHERAPY Observed: 05/14/2018 Status: COMPLETED Source: [place] 10:00 AM [facility] REPOSITORY OT/PT/Speech Visit (PTWS) VENICE CROFT ([id number]) 1945 F Date Time Provider Department 05/14/18 10:00 AM SOFIYA MYERS (PT) PTWS Date Time Provider Department Center 05/14/2018 10:00 AM [id number], DIANA (PT)PTWS [facility] Reason for Visit: PT Progress Note [1596] Primary Visit Diagnosis:Pain in left hip [M25.552] Other Visit Diagnosis:Pain in the groin, left [R10.32] Allergies As of Date: 05/14/2018 Noted Allergy Reaction DANIEL INHIBITORS 06/15/2005 7 - Swelling Comments: Angioedema. Lips. LIPITOR (ATORVASTATIN CALCIUM) 06/15/2005 Comments: Muscle aches PANAFIL ([id number]*08/18/2005 5 - Intolerance Comments: ? AMPICILLIN 06/15/2005 2 - Rash Comments: Bilateral arms. DARVOCET-N 100 (PROPOXYPHENE N-AC*01/31/2010 1 - Mental Status Change 14 - Other: See Comments Comments: Dizziness. PERCOCET (OXYCODONE-ACETAMINOPHEN)01/31/2010 1 - Mental Status Change Date Reviewed: 05/02/2018 Reviewed by: Radha Church Ma - Fully Assessed Prescriptions as of 05/14/2018 Sig: CETIRIZINE 10 MG TABLET Take 1 tablet by mouth once d* METHYLPREDNISOLONE 4 MG TABLE* As Instructed per package Patient not taking: Reported on 05/02/2018 MELOXICAM 15 MG TABLET Take 1 tablet by mouth once d* COMPOUNDED PRESCRIPTION KNEE HIGH COMPRESSION STOCKIN* HYDROCHLOROTHIAZIDE 25 MG TAB* TAKE 0.5 TABLETS BY MOUTH ONC* FLUTICASONE 50 MCG/ACTUATION * Use 2 Sprays in each nostril * MUCINEX DM ORAL Take by mouth twice daily. SIMVASTATIN 20 MG TABLET Take 0.5 tablets by mouth matthew* LANSOPRAZOLE 15 MG CAPSULE,DE* Take 2 capsules by mouth ever* ASPIRIN 81 MG TABLET,DELAYED * Take 1 tablet by mouth once d* CPAP Decrease the Bilevel setting * COMPOUNDED PRESCRIPTION Home Oxygen @ 2L-4L Nasal Can* CHOLECALCIFEROL (VITAMIN D3) * Take one(1) tablet two(2) corinne* Progress Notes: Sofiya Myers PT 05/20/2018 6:22 AM Signed Episode Visit Count: 2 Therapist That Will Oversee The Plan Of Care: Sofiya Myers PT Start of Care Date: 04/12/18 Onset Date: 02/21/18 Plan of Care Certification Date: 05/14/18 Patient Identified by Name and Date of : Yes REHABILITATION AND SPORTS THERAPY PHYSICAL THERAPY PROGRESS REPORT PLAN OF CARE UPDATE: Assessment: Venice Croft exhibits difficulty with continued L groin pain and getting into and out of car and improvements in being able to walk this past week without a cane and sleeping a few hours in bed. She continues to be limited with sleeping in bed, getting into and out of a car, and pain in L groin. She was able to tolerate movement and exercise, so would like to continue to work with her focusing on exercise and manual to help improve her L groin symptoms. She is progressing as expected towards her therapy goals as demonstrated by: pain levels and documented subjective information on progress. She will benefit from continued skilled therapy requiring therapeutic exercise and manual in order to improve pain when sitting or walking. Functional gains: Improved gait quality Decreased intensity of pain Goals updated on 05/14/2018. [place] in home exercise program.--Not Established yet. To establish 05/14/18 Patient will decrease pain rating by 2 points to meet minimal clinical important difference for numeric pain rating scale. (Goal: 2/10 with sitting and 4/10 with walking--progressing Perform sleeping in bed without pain.--partially MET Demonstrate improvement on functional score: Patient will improve his/her AM-PAC T-scale score by 4 points to indicate a Minimal Clinical Important Difference. (Goal: 49.55)--Not MET Walking without an assistive device.--MET Patient with improve 5x STS to 20 sec to show MCID --Not Tested Patient will be able to get into and out of a car without pain.--progressing G CODE REPORTING Based on clinical assessment and the score on the AM-PAC Scale Score Assessment Tool, the G code and corresponding severity modifiers are documented below. Evaluation: 04/12/2018 Current Status: Mobility: Walking and Moving Around: G8978 CK 40-59% impaired Goal Status: Mobility: Walking and Moving Around: G8979 CK 40-59% Impaired Progress Report: 05/14/2018 Current Status: Mobility: Walking and Moving Around: G8978 CK 40-59% impaired Goal Status: Mobility: Walking and Moving Around: G8979 CK 40-59% impaired Planned Interventions, Frequency, and Duration: 1x/week, 8 weeks Total Number of Visits Planned: 9 Patient to be seen for PLAN FOR NEXT VISIT: See how HEP is going. Assess delayed affects of manual. 5x STS SUBJECTIVE: Patient saw Dr. Cooper on 05/02/18; however, no recommendation has been made as he has not signed his note yet. Patient drove herself today to therapy. She stopped using her cane last week. Elastic of underware bothers her L groin. Patient is able to sleep in bed for a few hours now. Patient continues to use nasal canual for O2. Pain Score: ((Sittin-4/10 Standin-5/10)) Pain Location: Hip - Left;Groin - Left Description: Aching Frequency: Continuous OBJECTIVE MEASURES WITH LEVEL OF FUNCTION: Patient with better ability to transition from supine to sitting on mat table TREATMENT: Therapeutic Exercise: 1: *Seated B hip ER (aka seated clamshells) 2x10 2: *Seated B hip IR 2x10, B 3: *Seated marching 2x10 reps (cues to perform in pain free range) 5: *Standing hip flexor stretch pushing hips forward 10 sec, 3x 6: Supine dropping L leg off alberta table increased L groin pain, discontinued 7: *Assisted LEFT heel slides with green strap 2x10 8: *Supine LEFT Hip ABDuction 2x10 9: *Sidelying LEFT clamshells 2x10 10: Seated Recumbent Stepper Seat 16, level 1, arms 5, 5 minutes Skilled Intervention: Patient was educated in proper exercise technique and purpose for exercises. Reviewed and educated patient on additions/changes for home exercise program as above (*) Skilled judgment was provided in selection of appropriate interventions. Provided written instruction for home exercise program to facilitate proper performance and compliance. Correct performance of therapeutic exercises was facilitated with verbal, visual and tactile cuing. Manual Therapy: 1: IASTM to L groin and L buttock at piriformis with trigger point release. Push to patient tolerance Skilled Intervention: Manual skills to improve joint mobility, ROM, and decrease pain. Utilized anatomy knowledge of the therapist, and assessment of patient's response to intervention. Billing: [facility]: Therapeutic Exercise ([id number]): 1:1 time: 30 minutes (2 units: 23-37 mins) Manual Therapy ([id number]): 1:1 time: 15 minutes (1 unit: 8-22 mins) Total time: 45 minutes Sofiya Myers PT PROGRESS Observed: 05/02/2018 Status: COMPLETED Source: [place] 10:58 AM [facility] REPOSITORY HNO ID: [id number] Author: Radha Church Ma Service: (none) Author Type: (none) Type: Progress Notes Filed: 05/22/2018 7:01 AM Note Text: Patient presents with: New Patient: Left hip pain - Ref. Dr. Chairez AMB ROOMING INTAKE FLOWSHEET DATA Risk Screening Do you have concerns about personal safety or safety in the home?: No Pain Pain Score: 8/10 Pain Location: Hip-Left Description: Dull, Sharp Duration Amount of Time: (3-4 weeks) Frequency: Intermittent (Occurs with weight bearing) Intervention: Medication, Cold Patient states she is having pain in her groin and deep into her buttock. Dr. Chairez referring patient. No specific injury but in February she was having a walking test done to check her oxygen and had a twinge in her left hip. She is unable to lay in bed at night and lift her leg up. Dr. Chairez gave her Prednisone dose pack and helped for the first 2 days. States the pain would get worse as the prednisone was being reduced. States she had 2 rounds of the dose pack. Finished dose pack last week on 04/25/18 and started back taking the Mobic. She is also taking Tylenol arthritis 3 times a day. Harry - cousin with patient today. Patient is using a cane to ambulate. X-rays done on 04/01/18. CNOV Observed: 05/02/2018 Status: COMPLETED Source: [place] 10:40 AM [facility] REPOSITORY Office Visit (ORTHWS) VENICE CROFT ([id number]) 1945 F Date Time Provider Department 05/02/18 10:40 AM JONAH COOPER During your visit today, we recorded the following information about you: Pulse Blood pressure Weight Height 74/minute 145/72 130.6 kg 1.6 m Radha Church Shell 05/22/2018 7:01 AM Signed Patient presents with: New Patient: Left hip pain - Ref. Dr. Chairez AMB ROOMING INTAKE FLOWSHEET DATA Risk Screening Do you have concerns about personal safety or safety in the home?: No Pain Pain Score: 8/10 Pain Location: Hip-Left Description: Dull, Sharp Duration Amount of Time: (3-4 weeks) Frequency: Intermittent (Occurs with weight bearing) Intervention: Medication, Cold Patient states she is having pain in her groin and deep into her buttock. Dr. Chairez referring patient. No specific injury but in February she was having a walking test done to check her oxygen and had a twinge in her left hip. She is unable to lay in bed at night and lift her leg up. Dr. Chairez gave her Prednisone dose pack and helped for the first 2 days. States the pain would get worse as the prednisone was being reduced. States she had 2 rounds of the dose pack. Finished dose pack last week on 04/25/18 and started back taking the Mobic. She is also taking Tylenol arthritis 3 times a day. Harry - cousin with patient today. Patient is using a cane to ambulate. X-rays done on 04/01/18. Jonah Cooper MD 05/22/2018 7:01 AM Signed Jonah Cooper MD Department of Orthopaedics Orthopaedics [facility] [address] Dept: [phone] Dept May 02, 2018 CHIEF COMPLAINT: New Patient (Left hip pain - Ref. Dr. Chairez) HPI: Ms. Venice Croft is a 73 year old female who has had worsening pain in the left hip at 8 out of 10. Dull but also sharp on occasion. This bothers her mostly with weightbearing. She has discomfort from the groin and deep into her posterior hip. She denies any specific injury but she was doing a walking test to check her oxygen back in February and she felt a twinge and is bothered her since. She having a difficult time lifting her leg up to get into bed or into a car for example. She took prednisone that helped the situation but as she tapers down her pain returns. She's been using a cane. ASSESSMENT: M25.552, G89.29 Chronic left hip pain (primary encounter diagnosis) M16.12 Primary osteoarthritis of left hip E66.01 Morbidly obese (HCC) PLAN: She does have moderate arthritis in the left hip. Options are certainly weight loss and possible cortisone injection. Her BMI currently is a relative contraindication to any type of arthroplasty. FOLLOW UP INSTRUCTIONS: As needed Ms. Venice Croft was advised as to contrast therapies and/or to take analgesics/anti-inflammatories as needed and all contraindications were reviewed. OBJECTIVE: Ms. Venice Croft is a pleasant 73 year old in no apparent distress. Gen:BP 145/72 Pulse 74 Ht 5' 3 (1.60m) Wt 288 lb (130.6kg) BMI 51.03 kg/(m2). nl development, Morbidly obese, no deformities ENT: Normocephalic, normal hearing, moist mucosa CV: Pulses:DP/PT= 2+ and symmetric, capillary refill < 2 secs, no peripheral edema/varicosities Skin: no rash, bruising or lesions. Good turgor. Psych: cooperative and appropriate, alert and oriented x 3, good mood and affect. Musculoskeletal: Body habitus precludes determining any specific swelling about the hip joint. She is mildly tender about the lateral hip. Flexion and internal rotation does reproduce symptoms in the groin. Flexion of the 100?, internal rotation of 20, external rotation of 30. Knee has good range of motion without pain. IMAGING: IMPRESSION: Moderate left hip degenerative arthritis. Prominent chronic osteitis pubis. Meat Cooler: ROYAL ? Transcribe Date/Time: Apr 01 2018 12:39P Dictated by : WHITLEY KO MD This examination was interpreted and the report reviewed and electronically signed by: WHITLEY KO MD on Apr 01 2018 12:45PM ?EST Results-Findings * * *Final Report* * * DATE OF EXAM: Apr 01 2018 11:00AM ? WRX ? [id number] ?- ?XR HIP 3V PELV+ AP/LAT LT ?/ PROCEDURE REASON: Pain in left hip ?? ? * * * * Physician Interpretation * * * * ?EXAMINATION: ?XR HIP 3V PELV+ AP/LAT LT HISTORY: ? Pain in left hip ? . Patient/Technologist Provided History: No injury. Generalized left hip pain x several weeks TECHNIQUE: ?XR HIP 3V PELV+ AP/LAT LT ?? Laterality: ?LEFT ?? Number of different views (projections): 3 COMPARISON: CT abdomen and pelvis 12/14/2016 RESULT: No acute fracture or dislocation. Moderate joint space narrowing. ? Prominent osteitis pubis unchanged since prior CT with symphysis pubis vacuum phenomenon. ?SI joints are preserved. ?Lower lumbar spine degenerative changes. ?Right total hip arthroplasty without apparent complication. ?Radiopaque densities in the left pelvis likely represent bowel content. No other significant abnormality. Supporting Subjective Information Below: Past Medical History: PAST MEDICAL HISTORY Diagnosis Date - Allergic rhinitis - Angioneurotic edema not elsewhere classified DANIEL-I - Asthma - Benign neoplasm of colon - Bleeding ulcer - Colon cancer screening 11/14/2016 - Contact dermatitis and other eczema, due to unspecified cause - Dysphagia Dr. Boyd - Fracture - Gastroparesis - GERD (gastroesophageal reflux disease) - History of poliomyelitis age 8 - History of staph infection Seeing Dr. Rinaldi yearly, on doxycycline - Impaired glucose tolerance test - Morbid obesity with BMI of 50.0-59.9, adult (HCC) - On home oxygen therapy - Open wound of knee, leg (except thigh), and ankle, complicated - JUSTINA (obstructive sleep apnea) uses bipap nightly - Pulmonary hypertension (HCC) Seeing Dr. Singh - Pure hypercholesterolemia - Unspecified essential hypertension - Venous stasis dermatitis Past Surgical History: PAST SURGICAL HISTORY Procedure Laterality Date - BX OF BREAST; INCISIONAL Bx of breast, incisional multiple, benign - COLONOSCOP W/ OR W/O [facility] SPEC N/A 11/14/2016 repeat in 2 years - COLONOSCOPY W/BX 10/27/08 - DANDC, DIAG AND/OR THERAPEUTIC - EMERGENCY TRACHEOTOMY Polio at the age of 8 - KNEE SCOPE,DIAGNOSTIC 1990s Arthroscopy, knee RIGHT - REMOVE CATARACT, INSERT LENS, INTRACAPSUL Bilateral 05/2016 - REMOVE TONSILS/ADENOIDS,<12 Y/O - TOTAL HIP REPLACEMENT 06/2007 Hip replacement, total right - TOTAL KNEE REPLACEMENT 12/2007 Knee replacement, total knee - TOTAL KNEE REPLACEMENT 04/24 Knee replacement, total Family History: FAMILY HISTORY Problem Relation Age of Onset - Diabetes Mother - Cancer Mother Bladder - Stroke Mother - Diabetes Maternal Aunt - Diabetes Maternal Uncle HEART DISEASE - Heart Maternal Grandmother Social History:Social History Marital status: Single Spouse name: Years of education: Number of children: 0 Occupational History Occupation Employer Comment Retired [employer] Social History Main Topics Smoking status: Never Smoker Smokeless tobacco: Never Used Comment: Parents non-smokers. Alcohol use: No Drug use: No Sexual activity: No Medications: Current Outpatient Prescriptions: meloxicam (MOBIC) 15 mg tablet Take 1 tablet by mouth once daily. Take with food. Compression Knee Highs KNEE HIGH COMPRESSION STOCKINGS 30- 40 MM. DX: EDEMA hydroCHLOROthiazide (HYDRODIURIL, ESIDRIX) 25 mg tablet TAKE 0.5 TABLETS BY MOUTH ONCE DAILY. fluticasone (FLONASE) 50 mcg/actuation nasal spray Use 2 Sprays in each nostril once daily. simvastatin (ZOCOR) 20 mg tablet Take 0.5 tablets by mouth daily at bedtime. lansoprazole (PREVACID) 15 mg capsule Take 2 capsules by mouth every evening. aspirin, enteric coated (ADULT LOW DOSE ASPIRIN) 81 mg EC tablet Take 1 tablet by mouth once daily. CPAP Decrease the Bilevel setting to 13/8 cm h20 with 3 LPM of oxygen. COMPOUNDED PRESCRIPTION Home Oxygen @ 2L-4L Nasal Canula - continuous Diagnoses: Hypoxia 799.02, Dyspnea 786.09, Pulmonary Hypertension 416.8 Cholecalciferol, Vitamin D3, (VITAMIN D) 2,000 unit ORAL Cap Take one(1) tablet two(2) times daily. cetirizine (ZYRTEC) 10 mg tablet Take 1 tablet by mouth once daily. methylPREDNISolone (MEDROL, BENJIE,) 4 mg Dose-Pack As Instructed per package (Patient not taking: Reported on 05/02/2018 ) GUAIFENESIN/DEXTROMETHORPHAN (MUCINEX DM ORAL) Take by mouth twice daily. No current facility-administered medications for this visit. Allergies: Daniel Inhibitors; Lipitor [Atorvastatin Calcium]; Panafil [Bdwlgt-Ytey-Lpmjjmgzofyyz]; Ampicillin; Darvocet-N 100 [Propoxyphene N-Acetaminophen]; Percocet [Oxycodone-Acetaminophen] ROS: General (negative for fatigue, malaise, weight loss/gain) HEENT (negative for headache, earache, recent vision changes, sinus pain, sore throat) Respiratory (no recent shortness of breath, hemoptysis) CV (negative for chest tightness, palpitations) Musculoskeletal (see HPI) Psych (no depression, anxiety) REFERRING PHYSICIAN: Ms. Venice Croft was referred to me for consultation by the following physician. This consultation note will be sent to the following physician by either mail or electronic medical record. Yolande Chairez MD [address] [facility] [id number] This note was partially generated using Caviar voice recognition system, and there may be some incorrect words, spellings, and punctuation that were not noted in checking the note before saving. Jonah Cooper MD Referring Provider: YOLANDE CHAIREZ () [[id number]] Allergies As of Date: 05/02/2018 Noted Allergy Reaction DANIEL INHIBITORS 06/15/2005 7 - Swelling Comments: Angioedema. Lips. LIPITOR (ATORVASTATIN CALCIUM) 06/15/2005 Comments: Muscle aches PANAFIL ([id number]*08/18/2005 5 - Intolerance Comments: ? AMPICILLIN 06/15/2005 2 - Rash Comments: Bilateral arms. DARVOCET-N 100 (PROPOXYPHENE N-AC*01/31/2010 1 - Mental Status Change 14 - Other: See Comments Comments: Dizziness. PERCOCET (OXYCODONE-ACETAMINOPHEN)01/31/2010 1 - Mental Status Change Date Reviewed: 05/02/2018 Reviewed by: Radha Church Ma - Fully Assessed Reason for Visit: New Patient [172] Cmt: Left hip pain - Ref. Dr. Chairez Primary Visit Diagnosis:Chronic left hip pain [M25.552, G89.29] Other Visit Diagnoses:Primary osteoarthritis of left hip [M16.12] Morbidly obese (HCC) [E66.01] Prescriptions as of 05/02/2018 Sig: MELOXICAM 15 MG TABLET Take 1 tablet by mouth once d* COMPOUNDED PRESCRIPTION KNEE HIGH COMPRESSION STOCKIN* HYDROCHLOROTHIAZIDE 25 MG TAB* TAKE 0.5 TABLETS BY MOUTH ONC* FLUTICASONE 50 MCG/ACTUATION * Use 2 Sprays in each nostril * X CETIRIZINE 10 MG TABLET Take 1 tablet by mouth once d* SIMVASTATIN 20 MG TABLET Take 0.5 tablets by mouth matthew* LANSOPRAZOLE 15 MG CAPSULE,DE* Take 2 capsules by mouth ever* ASPIRIN 81 MG TABLET,DELAYED * Take 1 tablet by mouth once d* CPAP Decrease the Bilevel setting * COMPOUNDED PRESCRIPTION Home Oxygen @ 2L-4L Nasal Can* CHOLECALCIFEROL (VITAMIN D3) * Take one(1) tablet two(2) corinne* METHYLPREDNISOLONE 4 MG TABLE* As Instructed per package Patient not taking: Reported on 05/02/2018 MUCINEX DM ORAL Take by mouth twice daily. Problem List As Of Date 05/02/2018 Noted Resolved Pure Hypercholesterolemia [E78.00] INVALID FOR* More... Essential hypertension [I10] INVALID FOR* More... 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 Lymphedema, not elsewhere classified [I89.0] INVALID FOR* Benign neoplasm of colon [D12.6] INVALID FOR*08/19/2012 Achilles bursitis or tendinitis [M76.60] INVALID FOR*08/19/2012 Unspecified sleep apnea [G47.30] INVALID FOR*06/13/2016 More... Non-healing surgical wound [T81.89XA] INVALID FOR*08/19/2012 Protein calorie malnutrition [E46] INVALID FOR*08/19/2012 More... PUD (peptic ulcer disease) [K27.9] INVALID FOR*08/19/2012 More... Pain in joint [M25.50] INVALID FOR*06/13/2016 Vitamin D deficiency [E55.9] INVALID FOR* Preop exam for internal medicine [Z01.818] 08/19/2012 Open wound of knee, leg (except thigh), and ank*INVALID FOR*08/19/2012 Hypertension [I10] INVALID FOR*06/13/2016 BMI 50.0-59.9, adult (HCC) [Z68.43] INVALID FOR*06/16/2014 JUSTINA (obstructive sleep apnea) [G47.33] INVALID FOR* Pulmonary hypertension (HCC) [I27.20] INVALID FOR* BMI 45.0-49.9, adult (HCC) [Z68.42] INVALID FOR*10/15/2014 BMI 40.0-44.9, adult (HCC) [Z68.41] INVALID FOR*03/28/2017 More... Allergic rhinitis [J30.9] INVALID FOR* Impaired glucose metabolism [R73.09] INVALID FOR* More... On home oxygen therapy [Z99.81] INVALID FOR* Staphylococcus epidermidis infection [B95.7] INVALID FOR*03/28/2017 Dysphagia, unspecified(787.20) [R13.10] INVALID FOR* Morbid obesity with BMI of 50.0-59.9, adult (HC* Venous stasis dermatitis [I87.2] Pain in left hip [M25.552] INVALID FOR* Pain in the groin, left [R10.32] INVALID FOR* Encounter Status:Closed by JONAH COOPER MD on 05/22/18 PROGRESS Observed: 04/14/2018 Status: COMPLETED Source: [place] 8:50 AM [facility] REPOSITORY [facility] ID: [id number] Author: Sofiya (Willis) Lucia Service: (none) Author Type: Physical Therapist Type: Progress Notes Filed: 04/14/2018 9:06 AM Note Text: Episode Visit Count: 1 Therapist That Will Oversee The Plan Of Care: Sofiya Myers PT Start of Care Date: 04/12/18 Onset Date: 02/21/18 Plan of Care Certification Date: 04/12/18 Patient Identified by Name and Date of : Yes REHABILITATION AND SPORTS THERAPY PHYSICAL THERAPY EVALUATION PLAN OF CARE: Assessment: Venice Croft presents with the diagnosis of L hip and L groin pain. She presents with impairments of walking,sleeping, sit to stand, ROM, and strength. She may benefit from skilled therapy services to improve impairments. Concerned that patient will have a difficult time tolerating PT due to the assessment and her co-morbidities of need for O2 and morbid obesity. Recommending she seek consult from ortho specialist. She already has an x-ray done that showed moderate L hip degenerative arthritis and chronic osteitis pubis. Perhaps ortho can give her some options that then could allow her to tolerate PT. Being in the pool could be a option but unsure if this is feasible at this time due to patient being on continuous O2. Prognosis: Poor Poor due to: multiple co- morbidities;clinical presentation;limited tolerance to activity Goals for Episode of Care: created on 04/12/18 through 05/12/18 [place] in home exercise program. Patient will decrease pain rating by 2 points to meet minimal clinical important difference for numeric pain rating scale. (Goal: 2/10 with sitting and 4/10 with walking Perform sleeping in bed without pain. Demonstrate improvement on functional score: Patient will improve his/her AM-PAC T-scale score by 4 points to indicate a Minimal Clinical Important Difference. (Goal: 49.55) Walking without an assistive device. Patient with improve 5x STS to 20 sec to show MCID Patient will be able to get into and out of a car without pain. G CODE REPORTING Based on clinical assessment and the score on the AM-PAC Scale Score Assessment Tool, the G code and corresponding severity modifiers are documented below. Evaluation: 04/12/2018 Current Status: Mobility: Walking and Moving Around: G8978 CK 40-59% impaired Goal Status: Mobility: Walking and Moving Around: G8979 CK 40-59% impaired Planned Interventions, Frequency, and Duration: Current Frequency: (TBD--recommending seeing ortho first d/t sx) Duration: (TBD--recommending seeing ortho first d/t sx) Total Number of Visits Planned: 5 Planned Treatment Interventions: Therapeutic exercise;Manual therapy;Patient/Family/Caregiver Education;Modalities;Self- detention management;Functional training;General ConditioningUltrasound PLAN FOR NEXT VISIT: Recommending patient see ortho first as she was with poor tolerance to eval. Patient demonstrates good understanding of plan of care and treatment. The above goals and plan of care were discussed and agreed upon by patient/family. SUBJECTIVE: Venice Croft is a 73 year old female seen today for L hip pain. Started using standard cane on the R for last 2- 3 weeks. Sleeps mostly on her back due to Bipap and O2. Patient takes Meloxacam without much help and then arthritis pill which is taking a little edge off of the pain. Patient is sleeping in a chair as she is unable to sleep in her bed since the L hip pain began Functional Limitations: walking;rising from a chair;physical activities;sleeping (into and out of car, laying in bed) Prior Level of Function: Independent with restrictions (using 5-6L of O2) Patient Goals: to get ride of pain so can walk. Intake Information: Prescription present Previous Treatment: NSAIDs? Home Environment Patient Lives With: Self/Alone Home Type: First Floor Set Up Entry To Home: Ramp Tub/Shower Type: Shower Laundry: First foor Equipment Owned: Cane (home is handicap accessible.) Pain Score: (Sittin/10 Standin-6/10) Pain Location: Hip - Left (Middle of L groin to L hip ) Description: Aching Frequency: Continuous Post Treatment Pain Score: No Change OBJECTIVE MEASURES WITH LEVEL OF FUNCTION: Posture / Alignment LE Observations: Large sized legs (Patient wearing custom compresion stockings for legs) Hip Observations L Hip Palpation Tenderness: Inguinal ligament;Greater trochanter Mobility Sit To Supine: Minimal Assistance Stand To Sit: Modified Independent (uses arms to stand up) Gait Gait Observation: Slow gait speed and cadance with Standard cane on R LE AROM R Hip Flexion: 110 Degrees R Hip ABduction: 40 Degrees R Hip Internal Rotation: (functional about 20) R Hip External Rotation: (Unable to perform and hasn't been able to since TKAs) L Hip Flexion: 90 Degrees (very painful to perform ) L Hip ABduction : 20 Degrees L Hip Internal Rotation: (functional about 20 but very painful) L Hip External Rotation: (Unable to perform and hasn't been able to since TKAs) LE Strength R Hip Flexion (L2): 5/5 R Hip ABduction: 5/5 R Hip ADduction: 5/5 R Knee Extension (L3): 5/5 R Knee Flexion: 5/5 L Hip Flexion (L2): 3-/5 L Hip ABduction: 4-/5 L Hip ADduction: 4-/5 L Knee Extension (L3): 5/5 L Knee Flexion: 5/5 Special Tests - Hip and Spine Hip and Spine Special Tests: FADDIR Test;FADER Test FADER Test: Left Positive FADDIR Test: Left Positive 5 Times Sit to Stand Test : 36 sec (from 20 mat table) Education: Education Learning Preferences: Explanation Barriers: None Learning/educational needs: Plan of Care Education Provided: Yes, see treatment interventions for education provided Education Provided To: Patient Education Mode/Type: Explanation/Discussion Response to Education/Teach Back: States/Identifies TREATMENT: Evaluation Therapeutic Exercise: 1: Recommending patient see ortho specalist. Message sent to Dr. Ramos to help facilite coordination of appointment. Shared with patient ortho may want to take imaging, provide injection, or other options that will be helpful to patient. 2: Shared with patient a pool could be a good place for her, but unsure if this really is a feasible option due to her on 5L of O2. We do not have a pool here in [place], so if that does become an option another location would have to be determined. 3: Tried standing with B UE support on mat table R hip flexion, extension, and abduction and patient unable to tolerate 4: Patient unable to tolerate seated marching or standing marching. Skilled Intervention: Patient education as noted. Billing: [facility]: Evaluation - Moderate Complexity (15890) Therapeutic Exercise ([id number]): 1:1 time: 8 minutes (1 unit: 8-22 mins) Total time: 39 minutes Sofiya Myers PT CNTHERAPY Observed: 04/12/2018 Status: COMPLETED Source: [place] 2:45 PM [facility] REPOSITORY OT/PT/Speech Visit (PTWS) VENICE CROFT ([id number]) 1945 F Date Time Provider Department 04/12/18 2:45 PM SOFIYA MYERS (PT) PTWS Date Time Provider Department Center 04/12/2018 2:45 PM [id number], DIANA (PT)PTWS [facility] Reason for Visit: PT Eval [397] Patient Education [91] Primary Visit Diagnosis:Pain in left hip [M25.552] Other Visit Diagnosis:Pain in the groin, left [R10.32] Allergies As of Date: 04/12/2018 Noted Allergy Reaction DANIEL INHIBITORS 06/15/2005 7 - Swelling Comments: Angioedema. Lips. LIPITOR (ATORVASTATIN CALCIUM) 06/15/2005 Comments: Muscle aches PANAFIL ([id number]*08/18/2005 5 - Intolerance Comments: ? AMPICILLIN 06/15/2005 2 - Rash Comments: Bilateral arms. DARVOCET-N 100 (PROPOXYPHENE N-AC*01/31/2010 1 - Mental Status Change 14 - Other: See Comments Comments: Dizziness. PERCOCET (OXYCODONE-ACETAMINOPHEN)01/31/2010 1 - Mental Status Change Date Reviewed: 04/01/2018 Reviewed by: John Vance Ma - Fully Assessed Prescriptions as of 04/12/2018 Sig: METHYLPREDNISOLONE 4 MG TABLE* As Instructed per package MELOXICAM 15 MG TABLET Take 1 tablet by mouth once d* COMPOUNDED PRESCRIPTION KNEE HIGH COMPRESSION STOCKIN* HYDROCHLOROTHIAZIDE 25 MG TAB* TAKE 0.5 TABLETS BY MOUTH ONC* FLUTICASONE 50 MCG/ACTUATION * Use 2 Sprays in each nostril * MUCINEX DM ORAL Take by mouth twice daily. CETIRIZINE 10 MG TABLET Take 1 tablet by mouth once d* SIMVASTATIN 20 MG TABLET Take 0.5 tablets by mouth matthew* LANSOPRAZOLE 15 MG CAPSULE,DE* Take 2 capsules by mouth ever* ASPIRIN 81 MG TABLET,DELAYED * Take 1 tablet by mouth once d* CPAP Decrease the Bilevel setting * COMPOUNDED PRESCRIPTION Home Oxygen @ 2L-4L Nasal Can* CHOLECALCIFEROL (VITAMIN D3) * Take one(1) tablet two(2) corinne* Progress Notes: Sofiya Myers PT 04/14/2018 9:06 AM Signed Episode Visit Count: 1 Therapist That Will Oversee The Plan Of Care: Sofiya Myers PT Start of Care Date: 04/12/18 Onset Date: 02/21/18 Plan of Care Certification Date: 04/12/18 Patient Identified by Name and Date of : Yes REHABILITATION AND SPORTS THERAPY PHYSICAL THERAPY EVALUATION PLAN OF CARE: Assessment: Venice Croft presents with the diagnosis of L hip and L groin pain. She presents with impairments of walking,sleeping, sit to stand, ROM, and strength. She may benefit from skilled therapy services to improve impairments. Concerned that patient will have a difficult time tolerating PT due to the assessment and her co-morbidities of need for O2 and morbid obesity. Recommending she seek consult from ortho specialist. She already has an x-ray done that showed moderate L hip degenerative arthritis and chronic osteitis pubis. Perhaps ortho can give her some options that then could allow her to tolerate PT. Being in the pool could be a option but unsure if this is feasible at this time due to patient being on continuous O2. Prognosis: Poor Poor due to: multiple co- morbidities;clinical presentation;limited tolerance to activity Goals for Episode of Care: created on 04/12/18 through 05/12/18 [place] in home exercise program. Patient will decrease pain rating by 2 points to meet minimal clinical important difference for numeric pain rating scale. (Goal: 2/10 with sitting and 4/10 with walking Perform sleeping in bed without pain. Demonstrate improvement on functional score: Patient will improve his/her AM-PAC T-scale score by 4 points to indicate a Minimal Clinical Important Difference. (Goal: 49.55) Walking without an assistive device. Patient with improve 5x STS to 20 sec to show MCID Patient will be able to get into and out of a car without pain. G CODE REPORTING Based on clinical assessment and the score on the AM-PAC Scale Score Assessment Tool, the G code and corresponding severity modifiers are documented below. Evaluation: 04/12/2018 Current Status: Mobility: Walking and Moving Around: G8978 CK 40-59% impaired Goal Status: Mobility: Walking and Moving Around: G8979 CK 40-59% impaired Planned Interventions, Frequency, and Duration: Current Frequency: (TBD--recommending seeing ortho first d/t sx) Duration: (TBD--recommending seeing ortho first d/t sx) Total Number of Visits Planned: 5 Planned Treatment Interventions: Therapeutic exercise;Manual therapy;Patient/Family/Caregiver Education;Modalities;Self- detention management;Functional training;General ConditioningUltrasound PLAN FOR NEXT VISIT: Recommending patient see ortho first as she was with poor tolerance to eval. Patient demonstrates good understanding of plan of care and treatment. The above goals and plan of care were discussed and agreed upon by patient/family. SUBJECTIVE: Venice Croft is a 73 year old female seen today for L hip pain. Started using standard cane on the R for last 2-3 weeks. Sleeps mostly on her back due to Bipap and O2. Patient takes Meloxacam without much help and then arthritis pill which is taking a little edge off of the pain. Patient is sleeping in a chair as she is unable to sleep in her bed since the L hip pain began Functional Limitations: walking;rising from a chair;physical activities;sleeping (into and out of car, laying in bed) Prior Level of Function: Independent with restrictions (using 5-6L of O2) Patient Goals: to get ride of pain so can walk. Intake Information: Prescription present Previous Treatment: NSAIDs? Home Environment Patient Lives With: Self/Alone Home Type: First Floor Set Up Entry To Home: Ramp Tub/Shower Type: Shower Laundry: First foor Equipment Owned: Cane (home is handicap accessible.) Pain Score: (Sittin/10 Standin-610) Pain Location: Hip - Left (Middle of L groin to L hip ) Description: Aching Frequency: Continuous Post Treatment Pain Score: No Change OBJECTIVE MEASURES WITH LEVEL OF FUNCTION: Posture / Alignment LE Observations: Large sized legs (Patient wearing custom compresion stockings for legs) Hip Observations L Hip Palpation Tenderness: Inguinal ligament;Greater trochanter Mobility Sit To Supine: Minimal Assistance Stand To Sit: Modified Independent (uses arms to stand up) Gait Gait Observation: Slow gait speed and cadance with Standard cane on R LE AROM R Hip Flexion: 110 Degrees R Hip ABduction: 40 Degrees R Hip Internal Rotation: (functional about 20) R Hip External Rotation: (Unable to perform and hasn't been able to since TKAs) L Hip Flexion: 90 Degrees (very painful to perform ) L Hip ABduction : 20 Degrees L Hip Internal Rotation: (functional about 20 but very painful) L Hip External Rotation: (Unable to perform and hasn't been able to since TKAs) LE Strength R Hip Flexion (L2): 5/5 R Hip ABduction: 5/5 R Hip ADduction: 5/5 R Knee Extension (L3): 5/5 R Knee Flexion: 5/5 L Hip Flexion (L2): 3-/5 L Hip ABduction: 4-/5 L Hip ADduction: 4-/5 L Knee Extension (L3): 5/5 L Knee Flexion: 5/5 Special Tests - Hip and Spine Hip and Spine Special Tests: FADDIR Test;FADER Test FADER Test: Left Positive FADDIR Test: Left Positive 5 Times Sit to Stand Test : 36 sec (from 20 mat table) Education: Education Learning Preferences: Explanation Barriers: None Learning/educational needs: Plan of Care Education Provided: Yes, see treatment interventions for education provided Education Provided To: Patient Education Mode/Type: Explanation/Discussion Response to Education/Teach Back: States/Identifies TREATMENT: Evaluation Therapeutic Exercise: 1: Recommending patient see ortho specalist. Message sent to Dr. Ramos to help facilite coordination of appointment. Shared with patient ortho may want to take imaging, provide injection, or other options that will be helpful to patient. 2: Shared with patient a pool could be a good place for her, but unsure if this really is a feasible option due to her on 5L of O2. We do not have a pool here in [place], so if that does become an option another location would have to be determined. 3: Tried standing with B UE support on mat table R hip flexion, extension, and abduction and patient unable to tolerate 4: Patient unable to tolerate seated marching or standing marching. Skilled Intervention: Patient education as noted. Billing: [facility]: Evaluation - Moderate Complexity (01155) Therapeutic Exercise (24846): 1:1 time: 8 minutes (1 unit: 8-22 mins) Total time: 39 minutes Sofiya Myers PT Follow-up and Disposition History Recorded XR HIP 3V PELV+ Observed: 04/01/2018 Status: F Source: [facility] AP/LAT LT 11:00 AM [facility] REPOSITORY * * *Final Report* * * DATE OF EXAM: Apr 01 2018 11:00AM WRX [id number] - XR HIP 3V PELV+ AP/LAT LT / PROCEDURE REASON: Pain in left hip * * * * Physician Interpretation * * * * EXAMINATION: XR HIP 3V PELV+ AP/LAT LT HISTORY: Pain in left hip . Patient/Technologist Provided History: No injury. Generalized left hip pain x several weeks TECHNIQUE: XR HIP 3V PELV+ AP/LAT LT Laterality: LEFT Number of different views (projections): 3 COMPARISON: CT abdomen and pelvis 12/14/2016 RESULT: No acute fracture or dislocation. Moderate joint space narrowing. Prominent osteitis pubis unchanged since prior CT with symphysis pubis vacuum phenomenon. SI joints are preserved. Lower lumbar spine degenerative changes. Right total hip arthroplasty without apparent complication. Radiopaque densities in the left pelvis likely represent bowel content. No other significant abnormality. IMPRESSION: Moderate left hip degenerative arthritis. Prominent chronic osteitis pubis. Meat Cooler: PSCB Transcribe Date/Time: Apr 01 2018 12:39P Dictated by : WHITLEY KO MD This examination was interpreted and the report reviewed and electronically signed by: WHITLEY KO MD on Apr 01 2018 12:45PM EST [id number] PROGRESS Observed: 04/01/2018 Status: COMPLETED Source: [facility] 10:44 AM [facility] REPOSITORY HNO ID: [id number] Author: Lona Escalante) Nikos Younger Service: (none) Author Type: Access Clinician Type: Progress Notes Filed: 04/01/2018 11:00 AM Note Text: Radiology Service Progress Note PATIENT NAME: Venice Croft DATE OF SERVICE: April 01, 2018 TIME: 10:44 AM PATIENT IDENTITY VERIFICATION COMPLETED USING TWO (2) METHODS: Patient confirmed name verbally and Date of . PATIENT GENDER DATA: Female. status: : No status: NO. PATIENT RELEVANT IMPLANT DATA REVIEWED: Not Applicable RADIOLOGY DEPARTMENT: General X-ray: Exam(s) Completed: Pelvis X-Ray: Pelvis with Hip Left PERIPHERAL IV DATA: Not applicable SIGNED BY: RT Lexie April 01, 2018 10:44 AM PROGRESS Observed: 04/01/2018 Status: COMPLETED Source: [place] 9:20 AM [facility] REPOSITORY HNO ID: [id number] Author: Yolande Chairez Service: (none) Author Type: Physician Type: Progress Notes Filed: 04/01/2018 3:51 PM Note Text: Chief Complaint Patient presents with: 4 month follow up HPI Venice Croft is a 73 year old female who presents here today for 4 month follow up. Complaining today of left hip pain for the last 3 weeks without fall or injury. Pain started gradually and has been worsening since. Described constant aching pain without radiation. Exacerbated with going from sitting to standing, raising left leg, walking. Treating with ibuprofen 800 mg tablets which helps minimally with pain. Has not tried ice or heat. Denies redness, swelling, fever, chills, bruising, falls/injury, previous surgery. Following up with dr singh regarding pulmonary HTN and is using CPAP nightly for symptoms. Working well on current settings. Using oxygen daily as recommended. Had recent echo which showed stable mild pulm HTN with normal EF. No changes to regimen at last OV with Dr. Singh. Taking medications as prescribed without side effects. Reviewed recent blood work and discussed with patient. Past medical history, appointments, medications, allergies reviewed. 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 Boyd - Fracture - Gastroparesis - GERD (gastroesophageal reflux disease) - History of poliomyelitis age 8 - History of staph infection Seeing Dr. Rinaldi yearly, on doxycycline - Impaired glucose tolerance test - Morbid obesity with BMI of 50.0-59.9, adult (HCC) - On home oxygen therapy - Open wound of knee, leg (except thigh), and ankle, complicated - JUSTINA (obstructive sleep apnea) uses bipap nightly - Pulmonary hypertension (HCC) Seeing Dr. Singh - Pure hypercholesterolemia - Unspecified essential hypertension - Venous stasis dermatitis Previous Surgical History PAST SURGICAL HISTORY Procedure Laterality Date - BX OF BREAST; INCISIONAL Bx of breast, incisional multiple, benign - COLONOSCOP W/ OR W/O [facility] SPEC N/A 11/14/2016 repeat in 2 years - COLONOSCOPY W/BX 10/27/08 - DANDC, DIAG AND/OR THERAPEUTIC - EMERGENCY TRACHEOTOMY Polio at the age of 8 - KNEE SCOPE,DIAGNOSTIC 1990s Arthroscopy, knee RIGHT - REMOVE CATARACT, INSERT LENS, INTRACAPSUL Bilateral 05/2016 - REMOVE TONSILS/ADENOIDS,<12 Y/O - TOTAL HIP REPLACEMENT 06/2007 Hip replacement, total right - TOTAL KNEE REPLACEMENT 12/2007 Knee replacement, total knee - TOTAL KNEE REPLACEMENT 04/24 Knee replacement, total Family History FAMILY HISTORY Problem Relation Age of Onset - Diabetes Mother - Cancer Mother Bladder - Stroke Mother - Diabetes Maternal Aunt - Diabetes Maternal Uncle HEART DISEASE - Heart Maternal Grandmother Patient Allergies ALLERGIES Allergen Reactions - Daniel Inhibitors Swelling Angioedema. Lips. - Lipitor [Atorvastat* Muscle aches - Panafil [Papain-Ure* Intolerance ? - Ampicillin Rash Bilateral arms. - Darvocet-N 100 [Pro* Mental Status Change, Other: See Comments Dizziness. - Percocet [Oxycodone* Mental Status Change Current Medications Current Outpatient Prescriptions on File Prior to Visit: Compression Knee Highs KNEE HIGH COMPRESSION STOCKINGS 30- 40 MM. DX: EDEMA hydroCHLOROthiazide (HYDRODIURIL, ESIDRIX) 25 mg tablet TAKE 0.5 TABLETS BY MOUTH ONCE DAILY. fluticasone (FLONASE) 50 mcg/actuation nasal spray Use 2 Sprays in each nostril once daily. GUAIFENESIN/DEXTROMETHORPHAN (MUCINEX DM ORAL) Take by mouth twice daily. cetirizine (ZYRTEC) 10 mg tablet Take 1 tablet by mouth once daily. simvastatin (ZOCOR) 20 mg tablet Take 0.5 tablets by mouth daily at bedtime. lansoprazole (PREVACID) 15 mg capsule Take 2 capsules by mouth every evening. aspirin, enteric coated (ADULT LOW DOSE ASPIRIN) 81 mg EC tablet Take 1 tablet by mouth once daily. CPAP Decrease the Bilevel setting to 13/8 cm h20 with 3 LPM of oxygen. COMPOUNDED PRESCRIPTION Home Oxygen @ 2L-4L Nasal Canula - continuous Diagnoses: Hypoxia 799.02, Dyspnea 786.09, Pulmonary Hypertension 416.8 Cholecalciferol, Vitamin D3, (VITAMIN D) 2,000 unit ORAL Cap Take one(1) tablet two(2) times daily. No current facility-administered medications on file prior to visit. Social History Social History Marital status: Single Spouse name: Years of education: Number of children: 0 Occupational History Occupation Employer Comment Retired [employer] Social History Main Topics Smoking status: Never Smoker Smokeless tobacco: Never Used Comment: Parents non-smokers. Alcohol use: No Drug use: No Sexual activity: No Review of Symptoms REVIEW OF SYSTEMS GENERAL: No weight loss, malaise or fevers RESPIRATORY: Negative for cough, hemoptysis, wheezing, COPD, dyspnea or shortness of breath CARDIOVASCULAR: Negative for chest pain, leg swelling, hypertension, CHF or palpitations GI: No nausea, vomiting, or diarrhea SKIN: Negative for lesions, rash, and itching EXAM: BP 134/84 Pulse 76 Resp 16 Wt 134.7 kg (297 lb) SpO2 96% BMI 50.98 kg/m? General Appearance: Well appearing, alert, in no acute distress, well-hydrated, well nourished.. Skin: Skin color, texture, turgor normal, no suspicious rashes or lesions. Back:no pain to palpation of vertebrae, good flexion and extension, good range of motion, no muscle tenderness, reflexes are 2+ and symmetric, motor and sensory appear to be normal, negative SLR test, no evidence of scoliosis Lungs: Lungs clear to auscultation. No wheezing, rhonchi, rales. Abdomen: Normal abdominal exam, Abdomen soft, non-tender. Bowel sounds normal. No masses, organomegaly. HIP: Location: Left Redness: No. Warmth: No. Range of motion: Limited flexion, internal and external rotation due to pain. Tenderness over trochanteric bursa: No Pain with movement: Yes. Health Maintenance List DTAP,TDAP,TD(1 - Tdap) due on 11/25/2008 INFLUENZA(1) due on 05/18/2018 MAMMOGRAM due on 08/29/2018 COLORECTAL CANCER SCREENING,SEE MODIFIER due on 01/17/2019 DIABETES SCREEN due on 03/26/2021 LIPID SCREEN due on 03/26/2023 BONE DENSITY Completed ADULT PREVNAR-13 Completed PNEUMOVAX AGE 65 AND OVER WITH 5YR LOOKBACK Completed Data reviewed Component Latest Ref Rng AND Units 07/28/2017 11/28/2017 03/26/2018 Protein, Total 6.3 - 8.0 g/dL 7.5 7.7 Albumin 3.9 - 4.9 g/dL 4.1 4.2 Calcium 8.5 - 10.2 mg/dL 9.2 8.9 Bilirubin, Total 0.2 - 1.3 mg/dL 0.4 0.4 Alkaline Phosphatase 32 - 117 U/L 56 54 AST 13 - 35 U/L 22 19 Glucose 74 - 99 mg/dL 114 (H) 97 BUN 7 - 21 mg/dL 12 13 Creatinine 0.58 - 0.96 mg/dL 0.65 0.55 (L) Sodium 136 - 144 mmol/L 144 138 Potassium 3.7 - 5.1 mmol/L 4.2 4.0 Chloride 97 - 105 mmol/L 96 (L) 92 (L) CO2 22 - 30 mmol/L 37 (H) 36 (H) Anion Gap 9 - 18 mmol/L 11 10 ALT 7 - 38 U/L 15 14 eGFR- >60 >60 eGFR-All Other Races . >60 >60 Cholesterol, Total <200 mg/dL 209 (H) Triglyceride <150 mg/dL 75 HDL Cholesterol >39 mg/dL 96 LDL Cholesterol <100 mg/dL 98 Non HDL Cholesterol <130 mg/dL 113 Fasting Time hrs 11 VLDL Cholesterol <30 mg/dL 15 TC:HDL Ratio <5.10 2.18 LDL:HDL Ratio <2.54 1.02 Hemoglobin A1C 4.3 - 5.6 % 5.3 Estimated Average Glucose mg/dL 105 Vitamin D 25 Hydroxy 31.0 - 80.0 ng/mL 39.3 Echo: CONCLUSIONS: - Technically difficult exam due to body habitus. - Exam indication: Known pulmonary hypertension (surveillance >= 1yr) - The left ventricle is normal in size. Left ventricular systolic function is normal. EF = 70 ? 5% (2D 4-ch.) Indeterminate left ventricular diastolic dysfunction. - The right ventricle is dilated. Right ventricular systolic function is normal. - The left atrial cavity is mildly dilated. - Estimated right ventricular systolic pressure is 45 mmHg consistent with mild pulmonary hypertension. Estimated right atrial pressure is 0 mmHg. - Exam was compared with the prior echocardiographic exam performed on 07/24/2016, no significant change. ASSESSMENT/PLAN: 1. Hip pain, left - ICD9: 719.45, ICD10: M25.552 (primary diagnosis) Suspect arthritis 2/2 weight. Will obtain xray to confirm and start steroid taper and then mobic daily. Discussed rest and ice BID and f/u with PT. - XR HIP GENERAL 3V PELV/AP/LAT LT - METHYLPREDNISOLONE 4 MG TABLETS IN A DOSE PACK - MELOXICAM 15 MG TABLET - CONSULT TO PHYSICAL THERAPY 2. Essential hypertension - ICD9: 401.9, ICD10: I10 - good control - Continue current medication(s) - Encouraged dietary sodium restriction/DASH diet - Recommended regular aerobic exercise. - Reviewed risks of HTN and principles of treatment - Goal of BP <140/90 3. Pure hypercholesterolemia - ICD9: 272.0, ICD10: E78.00 - good control - Continue current medication. - Encouraged following a low fat, low cholesterol diet. - Discussed the benefits of regular aerobic exercise and weight loss. 4. Gastroesophageal reflux disease, esophagitis presence not specified - ICD9: 530.81, ICD10: K21.9 - Continue treatment with Prevacid 30 mg QD 5. JUSTINA (obstructive sleep apnea) - ICD9: 327.23, ICD10: G47.33 Controlled with CPAP nightly. 6. Vitamin D deficiency - ICD9: 268.9, ICD10: E55.9 Continue 2,000 units vitamin D daily. 7. Pulmonary hypertension (HCC) - ICD9: 416.8, ICD10: I27.20 Continue CPAP. Follow up with pulmonology. 8. Morbid obesity with BMI of 50.0-59.9, adult (HCC) - ICD9: 278.01, V85.43, ICD10: E66.01, Z68.43 Work on improved diet and exercise as discussed. Will follow up in 3-6 months. Yolande Chairez MD CNOV Observed: 04/01/2018 Status: COMPLETED Source: [place] 9:20 AM [facility] REPOSITORY Office Visit (FAMPWS) VENICE CROFT ([id number]) 1945 F Date Time Provider Department 04/01/18 9:20 AM YOLANDE CHAIREZ) FAMPWS During your visit today, we recorded the following information about you: Pulse Respiration Blood pressure Weight 76/minute 16/minute 134/84 134.7 kg Yolande Chairez MD 04/01/2018 3:51 PM Addendum Chief Complaint Patient presents with: 4 month follow up HPI Venice Croft is a 73 year old female who presents here today for 4 month follow up. Complaining today of left hip pain for the last 3 weeks without fall or injury. Pain started gradually and has been worsening since. Described constant aching pain without radiation. Exacerbated with going from sitting to standing, raising left leg, walking. Treating with ibuprofen 800 mg tablets which helps minimally with pain. Has not tried ice or heat. Denies redness, swelling, fever, chills, bruising, falls/injury, previous surgery. Following up with dr singh regarding pulmonary HTN and is using CPAP nightly for symptoms. Working well on current settings. Using oxygen daily as recommended. Had recent echo which showed stable mild pulm HTN with normal EF. No changes to regimen at last OV with Dr. Singh. Taking medications as prescribed without side effects. Reviewed recent blood work and discussed with patient. Past medical history, appointments, medications, allergies reviewed. 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 Boyd - Fracture - Gastroparesis - GERD (gastroesophageal reflux disease) - History of poliomyelitis age 8 - History of staph infection Seeing Dr. Rinaldi yearly, on doxycycline - Impaired glucose tolerance test - Morbid obesity with BMI of 50.0-59.9, adult (HCC) - On home oxygen therapy - Open wound of knee, leg (except thigh), and ankle, complicated - JUSTINA (obstructive sleep apnea) uses bipap nightly - Pulmonary hypertension (HCC) Seeing Dr. Singh - Pure hypercholesterolemia - Unspecified essential hypertension - Venous stasis dermatitis Previous Surgical History PAST SURGICAL HISTORY Procedure Laterality Date - BX OF BREAST; INCISIONAL Bx of breast, incisional multiple, benign - COLONOSCOP W/ OR W/O [facility] SPEC N/A 11/14/2016 repeat in 2 years - COLONOSCOPY W/BX 10/27/08 - DANDC, DIAG AND/OR THERAPEUTIC - EMERGENCY TRACHEOTOMY Polio at the age of 8 - KNEE SCOPE,DIAGNOSTIC Arthroscopy, knee RIGHT - REMOVE CATARACT, INSERT LENS, INTRACAPSUL Bilateral 05/2016 - REMOVE TONSILS/ADENOIDS,<12 Y/O - TOTAL HIP REPLACEMENT 06/2007 Hip replacement, total right - TOTAL KNEE REPLACEMENT 12/2007 Knee replacement, total knee - TOTAL KNEE REPLACEMENT 04/24 Knee replacement, total Family History FAMILY HISTORY Problem Relation Age of Onset - Diabetes Mother - Cancer Mother Bladder - Stroke Mother - Diabetes Maternal Aunt - Diabetes Maternal Uncle HEART DISEASE - Heart Maternal Grandmother Patient Allergies ALLERGIES Allergen Reactions - Daniel Inhibitors Swelling Angioedema. Lips. - Lipitor [Atorvastat* Muscle aches - Panafil [Papain-Ure* Intolerance ? - Ampicillin Rash Bilateral arms. - Darvocet-N 100 [Pro* Mental Status Change, Other: See Comments Dizziness. - Percocet [Oxycodone* Mental Status Change Current Medications Current Outpatient Prescriptions on File Prior to Visit: Compression Knee Highs KNEE HIGH COMPRESSION STOCKINGS 30- 40 MM. DX: EDEMA hydroCHLOROthiazide (HYDRODIURIL, ESIDRIX) 25 mg tablet TAKE 0.5 TABLETS BY MOUTH ONCE DAILY. fluticasone (FLONASE) 50 mcg/actuation nasal spray Use 2 Sprays in each nostril once daily. GUAIFENESIN/DEXTROMETHORPHAN (MUCINEX DM ORAL) Take by mouth twice daily. cetirizine (ZYRTEC) 10 mg tablet Take 1 tablet by mouth once daily. simvastatin (ZOCOR) 20 mg tablet Take 0.5 tablets by mouth daily at bedtime. lansoprazole (PREVACID) 15 mg capsule Take 2 capsules by mouth every evening. aspirin, enteric coated (ADULT LOW DOSE ASPIRIN) 81 mg EC tablet Take 1 tablet by mouth once daily. CPAP Decrease the Bilevel setting to 13/8 cm h20 with 3 LPM of oxygen. COMPOUNDED PRESCRIPTION Home Oxygen @ 2L-4L Nasal Canula - continuous Diagnoses: Hypoxia 799.02, Dyspnea 786.09, Pulmonary Hypertension 416.8 Cholecalciferol, Vitamin D3, (VITAMIN D) 2,000 unit ORAL Cap Take one(1) tablet two(2) times daily. No current facility-administered medications on file prior to visit. Social History Social History Marital status: Single Spouse name: Years of education: Number of children: 0 Occupational History Occupation Employer Comment Retired [employer] Social History Main Topics Smoking status: Never Smoker Smokeless tobacco: Never Used Comment: Parents non-smokers. Alcohol use: No Drug use: No Sexual activity: No Review of Symptoms REVIEW OF SYSTEMS GENERAL: No weight loss, malaise or fevers RESPIRATORY: Negative for cough, hemoptysis, wheezing, COPD, dyspnea or shortness of breath CARDIOVASCULAR: Negative for chest pain, leg swelling, hypertension, CHF or palpitations GI: No nausea, vomiting, or diarrhea SKIN: Negative for lesions, rash, and itching EXAM: BP 134/84 Pulse 76 Resp 16 Wt 134.7 kg (297 lb) SpO2 96% BMI 50.98 kg/m? General Appearance: Well appearing, alert, in no acute distress, well-hydrated, well nourished.. Skin: Skin color, texture, turgor normal, no suspicious rashes or lesions. Back:no pain to palpation of vertebrae, good flexion and extension, good range of motion, no muscle tenderness, reflexes are 2+ and symmetric, motor and sensory appear to be normal, negative SLR test, no evidence of scoliosis Lungs: Lungs clear to auscultation. No wheezing, rhonchi, rales. Abdomen: Normal abdominal exam, Abdomen soft, non-tender. Bowel sounds normal. No masses, organomegaly. HIP: Location: Left Redness: No. Warmth: No. Range of motion: Limited flexion, internal and external rotation due to pain. Tenderness over trochanteric bursa: No Pain with movement: Yes. Health Maintenance List DTAP,TDAP,TD(1 - Tdap) due on 11/25/2008 INFLUENZA(1) due on 05/18/2018 MAMMOGRAM due on 08/29/2018 COLORECTAL CANCER SCREENING,SEE MODIFIER due on 01/17/2019 DIABETES SCREEN due on 03/26/2021 LIPID SCREEN due on 03/26/2023 BONE DENSITY Completed ADULT PREVNAR-13 Completed PNEUMOVAX AGE 65 AND OVER WITH 5YR LOOKBACK Completed Data reviewed Component Latest Ref Rng AND Units 07/28/2017 11/28/2017 03/26/2018 Protein, Total 6.3 - 8.0 g/dL 7.5 7.7 Albumin 3.9 - 4.9 g/dL 4.1 4.2 Calcium 8.5 - 10.2 mg/dL 9.2 8.9 Bilirubin, Total 0.2 - 1.3 mg/dL 0.4 0.4 Alkaline Phosphatase 32 - 117 U/L 56 54 AST 13 - 35 U/L 22 19 Glucose 74 - 99 mg/dL 114 (H) 97 BUN 7 - 21 mg/dL 12 13 Creatinine 0.58 - 0.96 mg/dL 0.65 0.55 (L) Sodium 136 - 144 mmol/L 144 138 Potassium 3.7 - 5.1 mmol/L 4.2 4.0 Chloride 97 - 105 mmol/L 96 (L) 92 (L) CO2 22 - 30 mmol/L 37 (H) 36 (H) Anion Gap 9 - 18 mmol/L 11 10 ALT 7 - 38 U/L 15 14 eGFR- >60 >60 eGFR-All Other Races . >60 >60 Cholesterol, Total <200 mg/dL 209 (H) Triglyceride <150 mg/dL 75 HDL Cholesterol >39 mg/dL 96 LDL Cholesterol <100 mg/dL 98 Non HDL Cholesterol <130 mg/dL 113 Fasting Time hrs 11 VLDL Cholesterol <30 mg/dL 15 TC:HDL Ratio <5.10 2.18 LDL:HDL Ratio <2.54 1.02 Hemoglobin A1C 4.3 - 5.6 % 5.3 Estimated Average Glucose mg/dL 105 Vitamin D 25 Hydroxy 31.0 - 80.0 ng/mL 39.3 Echo: CONCLUSIONS: - Technically difficult exam due to body habitus. - Exam indication: Known pulmonary hypertension (surveillance >= 1yr) - The left ventricle is normal in size. Left ventricular systolic function is normal. EF = 70 ? 5% (2D 4-ch.) Indeterminate left ventricular diastolic dysfunction. - The right ventricle is dilated. Right ventricular systolic function is normal. - The left atrial cavity is mildly dilated. - Estimated right ventricular systolic pressure is 45 mmHg consistent with mild pulmonary hypertension. Estimated right atrial pressure is 0 mmHg. - Exam was compared with the prior echocardiographic exam performed on 07/24/2016, no significant change. ASSESSMENT/PLAN: 1. Hip pain, left - ICD9: 719.45, ICD10: M25.552 (primary diagnosis) Suspect arthritis 2/2 weight. Will obtain xray to confirm and start steroid taper and then mobic daily. Discussed rest and ice BID and f/u with PT. - XR HIP GENERAL 3V PELV/AP/LAT LT - METHYLPREDNISOLONE 4 MG TABLETS IN A DOSE PACK - MELOXICAM 15 MG TABLET - CONSULT TO PHYSICAL THERAPY 2. Essential hypertension - ICD9: 401.9, ICD10: I10 - good control - Continue current medication(s) - Encouraged dietary sodium restriction/DASH diet - Recommended regular aerobic exercise. - Reviewed risks of HTN and principles of treatment - Goal of BP <140/90 3. Pure hypercholesterolemia - ICD9: 272.0, ICD10: E78.00 - good control - Continue current medication. - Encouraged following a low fat, low cholesterol diet. - Discussed the benefits of regular aerobic exercise and weight loss. 4. Gastroesophageal reflux disease, esophagitis presence not specified - ICD9: 530.81, ICD10: K21.9 - Continue treatment with Prevacid 30 mg QD 5. JUSTINA (obstructive sleep apnea) - ICD9: 327.23, ICD10: G47.33 Controlled with CPAP nightly. 6. Vitamin D deficiency - ICD9: 268.9, ICD10: E55.9 Continue 2,000 units vitamin D daily. 7. Pulmonary hypertension (HCC) - ICD9: 416.8, ICD10: I27.20 Continue CPAP. Follow up with pulmonology. 8. Morbid obesity with BMI of 50.0-59.9, adult (HCC) - ICD9: 278.01, V85.43, ICD10: E66.01, Z68.43 Work on improved diet and exercise as discussed. Will follow up in 3-6 months. Yolande Chairez MD Referring Provider: YOLANDE CHAIREZ) [[id number]] Allergies As of Date: 04/01/2018 Noted Allergy Reaction DANIEL INHIBITORS 06/15/2005 7 - Swelling Comments: Angioedema. Lips. LIPITOR (ATORVASTATIN CALCIUM) 06/15/2005 Comments: Muscle aches PANAFIL ([id number]*08/18/2005 5 - Intolerance Comments: ? AMPICILLIN 06/15/2005 2 - Rash Comments: Bilateral arms. DARVOCET-N 100 (PROPOXYPHENE N-AC*01/31/2010 1 - Mental Status Change 14 - Other: See Comments Comments: Dizziness. PERCOCET (OXYCODONE-ACETAMINOPHEN)01/31/2010 1 - Mental Status Change Date Reviewed: 04/01/2018 Reviewed by: Jonh Vance Ma - Fully Assessed Reason for Visit: 4 month follow up [Other] Primary Visit Diagnosis:Hip pain, left [M25.552] Other Visit Diagnoses:Essential hypertension [I10] Pure hypercholesterolemia [E78.00] Gastroesophageal reflux disease, esophagitis presence not specified [K21.9] JUSTINA (obstructive sleep apnea) [G47.33] Vitamin D deficiency [E55.9] Pulmonary hypertension (HCC) [I27.20] Morbid obesity with BMI of 50.0-59.9, adult (HCC) [E66.01, Z68.43] Order(s):XR HIP GENERAL 3V PELV/AP/LAT LT [[id number]] Order #: [id number] FUTURE methylPREDNISolone (MEDROL, BENJIE,) 4 mg Dose-PackAs Instructed per packageDisp: 1 PackageRfl: 0 meloxicam (MOBIC) 15 mg tabletTake 1 tablet by mouth once daily. Take with food.Disp: 30 tabletRfl: 1 CONSULT TO PHYSICAL THERAPY [5104] Order #: [id number]: 1 Prescriptions as of 04/01/2018 Sig: METHYLPREDNISOLONE 4 MG TABLE* As Instructed per package MELOXICAM 15 MG TABLET Take 1 tablet by mouth once d* COMPOUNDED PRESCRIPTION KNEE HIGH COMPRESSION STOCKIN* HYDROCHLOROTHIAZIDE 25 MG TAB* TAKE 0.5 TABLETS BY MOUTH ONC* FLUTICASONE 50 MCG/ACTUATION * Use 2 Sprays in each nostril * MUCINEX DM ORAL Take by mouth twice daily. CETIRIZINE 10 MG TABLET Take 1 tablet by mouth once d* SIMVASTATIN 20 MG TABLET Take 0.5 tablets by mouth matthew* LANSOPRAZOLE 15 MG CAPSULE,DE* Take 2 capsules by mouth ever* ASPIRIN 81 MG TABLET,DELAYED * Take 1 tablet by mouth once d* CPAP Decrease the Bilevel setting * COMPOUNDED PRESCRIPTION Home Oxygen @ 2L-4L Nasal Can* CHOLECALCIFEROL (VITAMIN D3) * Take one(1) tablet two(2) corinne* Problem List As Of Date 04/01/2018 Noted Resolved Pure Hypercholesterolemia [E78.00] INVALID FOR* More... Essential hypertension [I10] INVALID FOR* More... 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 Lymphedema, not elsewhere classified [I89.0] INVALID FOR* Benign neoplasm of colon [D12.6] INVALID FOR*08/19/2012 Achilles bursitis or tendinitis [M76.60] INVALID FOR*08/19/2012 Unspecified sleep apnea [G47.30] INVALID FOR*06/13/2016 More... Non-healing surgical wound [T81.89XA] INVALID FOR*08/19/2012 Protein calorie malnutrition [E46] INVALID FOR*08/19/2012 More... PUD (peptic ulcer disease) [K27.9] INVALID FOR*08/19/2012 More... Pain in joint [M25.50] INVALID FOR*06/13/2016 Vitamin D deficiency [E55.9] INVALID FOR* Preop exam for internal medicine [Z01.818] 08/19/2012 Open wound of knee, leg (except thigh), and ank*INVALID FOR*08/19/2012 Hypertension [I10] INVALID FOR*06/13/2016 BMI 50.0-59.9, adult (HCC) [Z68.43] INVALID FOR*06/16/2014 JUSTINA (obstructive sleep apnea) [G47.33] INVALID FOR* Pulmonary hypertension (HCC) [I27.20] INVALID FOR* BMI 45.0-49.9, adult (HCC) [Z68.42] INVALID FOR*10/15/2014 BMI 40.0-44.9, adult (HCC) [Z68.41] INVALID FOR*03/28/2017 More... Allergic rhinitis [J30.9] INVALID FOR* Impaired glucose metabolism [R73.09] INVALID FOR* More... On home oxygen therapy [Z99.81] INVALID FOR* Staphylococcus epidermidis infection [B95.7] INVALID FOR*03/28/2017 Dysphagia, unspecified(787.20) [R13.10] INVALID FOR* Morbid obesity with BMI of 50.0-59.9, adult (HC* Venous stasis dermatitis [I87.2] Prescriptions ordered this encounter Disp Refills Start End METHYLPREDNISOLONE 4 MG TABLETS IN A* 1 Pa* 0 04/01/2018 Sig: As Instructed per package MELOXICAM 15 MG TABLET 30 t* 1 04/01/2018 Route: ORAL Sig: Take 1 tablet by mouth once daily. Take with food. Disposition: Return in about 4 months (around 08/02/2018). Follow-up and Disposition History Recorded Encounter Status:Closed by YOLANDE CHAIREZ MD on 04/01/18 LIPID PANEL, BASIC Collected: 03/26/2018 Status: F Source: [place] 10:21 AM [facility] REPOSITORY TYPE CODE TESTS RESULT OUT OF REFERENCE UNITS RANGE LAB CHOL <200 mg/dL Cholesterol High 209 Result Comment: <200 mg/dL, Desirable 200-239 mg/dL, Borderline high >239 mg/dL, High LAB TRIGLY <150 mg/dL Triglyceride 75 Result Comment: <150 mg/dL, Normal 150-199 mg/dL, Borderline high 200-499 mg/dL, High >499 mg/dL, Very high LAB HDL >39 mg/dL HDL-Cholesterol 96 Result Comment: 40-59 mg/dL, Acceptable >59 mg/dL, High: Negative risk factor for coronary heart disease <40 mg/dL, Low: Positive risk factor for coronary heart disease LAB LDL <100 mg/dL LDL-Cholesterol 98 Result Comment: <100 mg/dL, Optimal 100-129 mg/dL, Near optimal/above optimal 130-159 mg/dL, Borderline high 160-189 mg/dL, High >189 mg/dL, Very high Secondary prevention optimal LDL Cholesterol levels are recommended to be < 70 mg/dL LAB NONHDL <130 mg/dL Non HDL Cholesterol 113 Result Comment: <130 mg/dL, Optimal 130-159 mg/dL, Near optimal/above optimal 160-189 mg/dL, Borderline high 190-219 mg/dL, High >219 mg/dL, Very high Secondary prevention optimal non HDL Cholesterol levels are recommended to be < 100 mg/dL LAB FT hrs Fasting Time 11 LAB VLDL <30 mg/dL VLDL Cholesterol 15 LAB TCHDL <5.10 TC:HDL Ratio 2.18 LAB LDLHDL <2.54 LDL:HDL Ratio 1.02 Result Comment: Reference: 1. National Cholesterol Education Program ATP III Guideline At-A-Glance Quick Desk Reference: National Heart, Lung, and Blood [place]. National Institutes of Health. 2001: NIH Publication No. 01-3305. 2. An International Atherosclerosis Society position paper: global recommendations for the management of dyslipidemia: executive summary, Atherosclerosis. 2014: 232(2):410-413. Performed By: #### LIPB, HBA1C #### [facility] [address] [place] [address] HEMOGLOBIN A1C Collected: 03/26/2018 Status: F Source: [place] 10:21 AM [facility] REPOSITORY TYPE CODE TESTS RESULT OUT OF REFERENCE UNITS RANGE LAB HGBA1C 4.3-5.6 % Hemoglobin A1c 5.3 LAB HBA0 mg/dL Est. Average Glucose 105 Result Comment: eAG: (Estimated average glucose) is a calculated value from HgbA1c and is customer retention representative of the average blood glucose level in the last 2-3 month period. Performed By: #### LIPB, HBA1C #### [facility] [address] [place] [id number] [place] Observed: 03/19/2018 Status: COMPLETED Source: [place] 12:00 AM [facility] REPOSITORY Patient Outreach (INTM[facility]) VENICE CROFT ([id number]) 1945 F Date Time Provider Department 03/19/18 YOLANDE CHAIREZ) [facility] During your visit today, we recorded the following information about you: Allergies As of Date: 03/19/2018 Noted Allergy Reaction DANIEL INHIBITORS 06/15/2005 7 - Swelling Comments: Angioedema. Lips. LIPITOR (ATORVASTATIN CALCIUM) 06/15/2005 Comments: Muscle aches PANAFIL ([id number]*08/18/2005 5 - Intolerance Comments: ? AMPICILLIN 06/15/2005 2 - Rash Comments: Bilateral arms. DARVOCET-N 100 (PROPOXYPHENE N-AC*01/31/2010 1 - Mental Status Change 14 - Other: See Comments Comments: Dizziness. PERCOCET (OXYCODONE-ACETAMINOPHEN)01/31/2010 1 - Mental Status Change Date Reviewed: 02/21/2018 Reviewed by: Thelma Singh - Fully Assessed Visit Diagnosis:Medication management [Z79.899] Order(s):HGB A1C [XUGYB2Z] Order #: [id number] FUTURE LIPID PANEL BASIC [SQLIPB] Order #: [id number] FUTURE Prescriptions as of 03/19/2018 Sig: COMPOUNDED PRESCRIPTION KNEE HIGH COMPRESSION STOCKIN* HYDROCHLOROTHIAZIDE 25 MG TAB* TAKE 0.5 TABLETS BY MOUTH ONC* FLUTICASONE 50 MCG/ACTUATION * Use 2 Sprays in each nostril * MUCINEX DM ORAL Take by mouth twice daily. X CETIRIZINE 10 MG TABLET Take 1 tablet by mouth once d* SIMVASTATIN 20 MG TABLET Take 0.5 tablets by mouth matthew* LANSOPRAZOLE 15 MG CAPSULE,DE* Take 2 capsules by mouth ever* ASPIRIN 81 MG TABLET,DELAYED * Take 1 tablet by mouth once d* CPAP Decrease the Bilevel setting * COMPOUNDED PRESCRIPTION Home Oxygen @ 2L-4L Nasal Can* CHOLECALCIFEROL (VITAMIN D3) * Take one(1) tablet two(2) corinne* Problem List As Of Date 03/19/2018 Noted Resolved Pure Hypercholesterolemia [E78.00] INVALID FOR* More... Essential hypertension [I10] INVALID FOR* More... 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 Lymphedema, not elsewhere classified [I89.0] INVALID FOR* Benign neoplasm of colon [D12.6] INVALID FOR*08/19/2012 Achilles bursitis or tendinitis [M76.60] INVALID FOR*08/19/2012 Unspecified sleep apnea [G47.30] INVALID FOR*06/13/2016 More... Non-healing surgical wound [T81.89XA] INVALID FOR*08/19/2012 Protein calorie malnutrition [E46] INVALID FOR*08/19/2012 More... PUD (peptic ulcer disease) [K27.9] INVALID FOR*08/19/2012 More... Pain in joint [M25.50] INVALID FOR*06/13/2016 Vitamin D deficiency [E55.9] INVALID FOR* Preop exam for internal medicine [Z01.818] 08/19/2012 Open wound of knee, leg (except thigh), and ank*INVALID FOR*08/19/2012 Hypertension [I10] INVALID FOR*06/13/2016 BMI 50.0-59.9, adult (HCC) [Z68.43] INVALID FOR*06/16/2014 JUSTINA (obstructive sleep apnea) [G47.33] INVALID FOR* Pulmonary hypertension (HCC) [I27.20] INVALID FOR* BMI 45.0-49.9, adult (HCC) [Z68.42] INVALID FOR*10/15/2014 BMI 40.0-44.9, adult (HCC) [Z68.41] INVALID FOR*03/28/2017 More... Allergic rhinitis [J30.9] INVALID FOR* Impaired glucose metabolism [R73.09] INVALID FOR* More... On home oxygen therapy [Z99.81] INVALID FOR* Staphylococcus epidermidis infection [B95.7] INVALID FOR*03/28/2017 Dysphagia, unspecified(787.20) [R13.10] INVALID FOR* Morbid obesity with BMI of 50.0-59.9, adult (HC* Venous stasis dermatitis [I87.2] Encounter Status:Closed by KENNY PEDERSEN on 06/28/18 ROLA Observed: 03/12/2018 Status: COMPLETED Source: [place] 12:00 AM [facility] REPOSITORY Telephone (PULMWS) VENICE CROFT ([id number]) 1945 F Date Time Provider Department 03/12/18 THELMA SINGH During your visit today, we recorded the following information about you: Belkys Brewster 03/12/2018 10:56 AM Signed Patient is calling to schedule appointment for August with Provider. I am thinking we normally schedule testing at this time also. No orders are placed. Please review and advise if testing is needed or just a follow up appointment. Route back to Clerical pool for scheduling. Belkys Singh MD 03/12/2018 3:52 PM Signed I normally recommend echocardiogram and 6 minute walk once annually. She just completed both of these on 03/04/2018. No need to repeat at this time. Thelma Singh MD, [facility] [place] Allergies As of Date: 03/12/2018 Noted Allergy Reaction DANIEL INHIBITORS 06/15/2005 7 - Swelling Comments: Angioedema. Lips. LIPITOR (ATORVASTATIN CALCIUM) 06/15/2005 Comments: Muscle aches PANAFIL ([id number]*08/18/2005 5 - Intolerance Comments: ? AMPICILLIN 06/15/2005 2 - Rash Comments: Bilateral arms. DARVOCET-N 100 (PROPOXYPHENE N-AC*01/31/2010 1 - Mental Status Change 14 - Other: See Comments Comments: Dizziness. PERCOCET (OXYCODONE-ACETAMINOPHEN)01/31/2010 1 - Mental Status Change Date Reviewed: 02/21/2018 Reviewed by: Thelma Singh - Fully Assessed Reason for Visit: Question [1327] Prescriptions as of 03/12/2018 Sig: COMPOUNDED PRESCRIPTION KNEE HIGH COMPRESSION STOCKIN* HYDROCHLOROTHIAZIDE 25 MG TAB* TAKE 0.5 TABLETS BY MOUTH ONC* FLUTICASONE 50 MCG/ACTUATION * Use 2 Sprays in each nostril * MUCINEX DM ORAL Take by mouth twice daily. CETIRIZINE 10 MG TABLET Take 1 tablet by mouth once d* SIMVASTATIN 20 MG TABLET Take 0.5 tablets by mouth matthew* LANSOPRAZOLE 15 MG CAPSULE,DE* Take 2 capsules by mouth ever* ASPIRIN 81 MG TABLET,DELAYED * Take 1 tablet by mouth once d* CPAP Decrease the Bilevel setting * COMPOUNDED PRESCRIPTION Home Oxygen @ 2L-4L Nasal Can* CHOLECALCIFEROL (VITAMIN D3) * Take one(1) tablet two(2) corinne* Problem List As Of Date 03/12/2018 Noted Resolved Pure Hypercholesterolemia [E78.00] INVALID FOR* More... Essential hypertension [I10] INVALID FOR* More... 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 Lymphedema, not elsewhere classified [I89.0] INVALID FOR* Benign neoplasm of colon [D12.6] INVALID FOR*08/19/2012 Achilles bursitis or tendinitis [M76.60] INVALID FOR*08/19/2012 Unspecified sleep apnea [G47.30] INVALID FOR*06/13/2016 More... Non-healing surgical wound [T81.89XA] INVALID FOR*08/19/2012 Protein calorie malnutrition [E46] INVALID FOR*08/19/2012 More... PUD (peptic ulcer disease) [K27.9] INVALID FOR*08/19/2012 More... Pain in joint [M25.50] INVALID FOR*06/13/2016 Vitamin D deficiency [E55.9] INVALID FOR* Preop exam for internal medicine [Z01.818] 08/19/2012 Open wound of knee, leg (except thigh), and ank*INVALID FOR*08/19/2012 Hypertension [I10] INVALID FOR*06/13/2016 BMI 50.0-59.9, adult (HCC) [Z68.43] INVALID FOR*06/16/2014 JUSTINA (obstructive sleep apnea) [G47.33] INVALID FOR* Pulmonary hypertension (HCC) [I27.20] INVALID FOR* BMI 45.0-49.9, adult (HCC) [Z68.42] INVALID FOR*10/15/2014 BMI 40.0-44.9, adult (HCC) [Z68.41] INVALID FOR*03/28/2017 More... Allergic rhinitis [J30.9] INVALID FOR* Impaired glucose metabolism [R73.09] INVALID FOR* More... On home oxygen therapy [Z99.81] INVALID FOR* Staphylococcus epidermidis infection [B95.7] INVALID FOR*03/28/2017 Dysphagia, unspecified(787.20) [R13.10] INVALID FOR* Morbid obesity with BMI of 50.0-59.9, adult (HC* Venous stasis dermatitis [I87.2] Encounter Status:Closed by THELMA SINGH MD on 03/12/18 PROCEDURE Observed: 03/04/2018 Status: COMPLETED Source: [place] 2:01 PM [facility] [place] REPOSITORY HNO ID: [id number] Author: Nikos Crowder (Tech) Service: (none) Author Type: Access Clinician Type: Procedures Filed: 03/04/2018 2:38 PM Note Text: RESPIRATORY THERAPY SIX MINUTE WALK TEST OXIMETRY REPORT Six Minute Walk Test for This Encounter Oxygen Device Liters FIO2 SpO2% HR Activity Feet Speed (MPH) Flag R/A 90 77 Resting NC 4 95 74 Resting NC 4 94 107 Six Minute Walk 740 1.4 NC 4 96 83 Recovery 1 minute post NC 4 98 76 Recovery 2 minute post NC 4 97 74 Recovery 3 minute post General Information Height Weight Smoking Status Pulse Oximetry Site Oximeter Pre Blood Pressure Post Blood Pressure Total Time Spent (min) 162.6 cm (5' 4) 133.8 kg (295 lb) Never L Index Finger Masimo 153/67 156/86 30 _ Distance Walked (meters) Distance Walked (feet) Female Predicted Walk Distance (feet) Female Lower Limit of Normal (feet) Female % Predicted Total Duration Of The Stops (seconds) 225.55 740 905.18 449.18 81.8 -- _ Lowest SpO2 During 6 Minute Walk Pre-Betty Dyspnea Rating Pre-Betty Fatigue Rating Post Betty Dyspnea Rating Post Betty Fatigue Rating O2 Supply Carrier Walking Assistance/Device 93 % 2 4 3 4 3 Wheel Walker -- Six Minute Walk Trend (Previous Encounters) None SIGNATURE: Nikos Crowder PATIENT NAME: Venice Croft DATE: March 04, 2018 TIME: 2:01 PM _ Comments: patient home O2 at 3.5 liters The patient completed the six minute walk test with No stops. . The patient required Nasal Cannula Liters: 4 to complete the test. The distance the patient walked in six minutes is within the predicted normal range. The six minute walk distance today demonstrates a clinically significant increase (260 feet increase), when compared to the historically highest six minute walk distance from a test dated 01/27/16. Today's distance represents a 260 feet increase compared to the last visit on 01/27/16. The patient perceived their dyspnea during the six minute walk test to be 3-Moderate on the modified Betty scale. The patient perceived their fatigue during the six minute walk test to be 4-Somewhat severe on the modified Betty scale. I have reviewed the findings and made appropriate revisions as needed. SIGNATURE: Joe Baires MD PATIENT NAME: Venice Croft DATE: March 04, 2018 TIME: 2:38 PM CNOV Observed: 02/21/2018 Status: COMPLETED Source: [place] 3:00 PM [facility] REPOSITORY Office Visit (PULMWS) ZEKEVENICE ([id number]) 1945 F Date Time Provider Department 02/21/18 3:00 PM THELMA SINGH PULSOPHIA During your visit today, we recorded the following information about you: Pulse Respiration Blood pressure Weight 85/minute 15/minute 122/80 133.6 kg Height 1.626 m Thelma Singh MD 03/01/2018 4:09 PM Signed [facility] [place], 02/21/2018: ? HPI: Since the last visit, the patient has not required hospitalization. Patient compliant with prescribed PAP Rx, current compliance report scanned into record. No change in occasional cough. No sputum, hemoptysis, pleuritic chest pain, wheezing. Stable exertional dyspnea with exertion. Nasal congestion and post nasal drip. Continuous supplemental oxygen 3.5 L. DME: [facility] ? PMH changes: Reviewed with patient today. FAMH changes: Reviewed with patient today. SOCH changes: No changes. ? ROS: Reviewed with patient, confirmed as documented by Yenifer Myers LPN. TO ? Allergies were reviewed and updated, and medications were reconciled with the patient. ? PHYSICAL EXAMINATION: BP 122/80 Pulse 85 Resp 15 Ht 5' 4 (1.63m) Wt 294 lb 9.6 oz (133.6kg) SpO2 97% BMI 50.54 kg/(m2). Gen: No acute distress. Cooperative with examination. ENT: Sclerae clear. EOMI. Nares clear. Oral hygeine good. Resp: No stridor, accessory respiratory muscle use, supra- sternal or intercostal retractions. No wheezes, crackles, rubs. CV: Regular rythm. Heart tones normal. Radial pulses normal. Abd: Non distended. MSK: No kyphoscoliosis, joint deformities. Ext: Warm and well perfused. No clubbing, cyanosis, edema. Skin: Color normal. Texture normal. No rash, eczema, urticaria, ecchymoses. Neuro: Mental status normal. Affect normal. Muscle tone normal. No tremor. ? DATA REVIEW: CXR, 08/01/17 IMPRESSION: Stable exam without acute findings. RESULT: Lines, tubes, and devices: ?None. Lungs and pleura: ?No consolidation. No lung mass. No pleural effusion. ? Persistent eventration of the right hemidiaphragm noted. Cardiomediastinal silhouette: ?Normal cardiomediastinal silhouette. Other: ?There are degenerative changes in the spine. ? IMPRESSION AND RECOMMENDATIONS: 1. 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 ?Last 6 minute walk more than 2 years ago. Last echocardiogram 2015.? - Continue BiPAP and O2 with any sleep. - Oxygen at 3.5L rest, increased to 6 L with any activity. - Current echocardiogram and 6 minute walk to re-assess. Further recommendations to follow results. ? 2. Obstructive sleep apnea. - Reviewed most recent BiPAP report. Will discuss with Dr. Singh. - Continue BiPAP and oxygen. ? 3. Morbid obesity. Body Mass Index (BMI) today is 50.54 at current weight of 294 pounds. Normal BMI is 18.5-25, corresponding to a goal weight range of 110-150 pounds in an individual 5'4 in height. The patient is at least 144 pounds overweight. - Weight loss is critical. Consider referral to Weight Management program such as Weight Watchers, or to Bariatric Surgery program. Deferred to Primary Care Physician, Yolande Chairez MD. ? I addressed the questions of the patient, and she expressed understanding and acceptance of my answers. ? Thelma Singh MD, [facility] [place] [facility] [address] [place] [id number] P: [phone] F: [phone] [email or web address] ? ? Thelma Singh MD 02/21/2018 3:06 PM Addendum IMPRESSION AND RECOMMENDATIONS: 1. 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 ?Last 6 minute walk more than 2 years ago. Last echocardiogram 2016.? - Continue BiPAP and O2 with any sleep. - Oxygen at 3.5L rest, increased to 6 L with any activity. - Current echocardiogram and 6 minute walk to re-assess. Further recommendations to follow results. ? 2. Obstructive sleep apnea. - Reviewed most recent BiPAP report. Will discuss with Dr. Singh. - Continue BiPAP and oxygen. ? 3. Morbid obesity. Body Mass Index (BMI) today is 50.54 at current weight of 294 pounds. Normal BMI is 18.5-25, corresponding to a goal weight range of 110-150 pounds in an individual 5'4 in height. The patient is at least 144 pounds overweight. - Weight loss is critical. Consider referral to Weight Management program such as Weight Watchers, or to Bariatric Surgery program. Deferred to Primary Care Physician, Yolande Chairez MD. Thelma Singh MD, [facility] [address] [place], [place] [id number] P: [phone] F: [phone] [email or web address] Referring Provider: ROYA DUCKWOTRH ([facility]) [[id number]] Allergies As of Date: 02/21/2018 Noted Allergy Reaction DANIEL INHIBITORS 06/15/2005 7 - Swelling Comments: Angioedema. Lips. LIPITOR (ATORVASTATIN CALCIUM) 06/15/2005 Comments: Muscle aches PANAFIL ([id number]*08/18/2005 5 - Intolerance Comments: ? AMPICILLIN 06/15/2005 2 - Rash Comments: Bilateral arms. DARVOCET-N 100 (PROPOXYPHENE N-AC*01/31/2010 1 - Mental Status Change 14 - Other: See Comments Comments: Dizziness. PERCOCET (OXYCODONE-ACETAMINOPHEN)01/31/2010 1 - Mental Status Change Date Reviewed: 02/21/2018 Reviewed by: Thelma Singh - Fully Assessed Reason for Visit: Established Patient [175] Cmt: 6 month follow up Primary Visit Diagnosis:Other secondary pulmonary hypertension (HCC) [I27.29] Other Visit Diagnoses:JUSTINA on CPAP [G47.33, Z99.89] Morbid obesity with BMI of 50.0-59.9, adult (FORM[facility]) [E66.01, Z68.43] Order(s):SIX MINUTE WALK [[id number]] Order #: [id number] FUTURE ECHO [[id number]] Order #: [id number]: 1 FUTURE Prescriptions as of 02/21/2018 Sig: FLUTICASONE 50 MCG/ACTUATION * Use 2 Sprays in each nostril * MUCINEX DM ORAL Take by mouth twice daily. CETIRIZINE 10 MG TABLET Take 1 tablet by mouth once d* SIMVASTATIN 20 MG TABLET Take 0.5 tablets by mouth matthew* LANSOPRAZOLE 15 MG CAPSULE,DE* Take 2 capsules by mouth ever* X HYDROCHLOROTHIAZIDE 25 MG TAB* Take 0.5 tablets by mouth onc* ASPIRIN 81 MG TABLET,DELAYED * Take 1 tablet by mouth once d* CPAP Decrease the Bilevel setting * CHOLECALCIFEROL (VITAMIN D3) * Take one(1) tablet two(2) corinne* COMPOUNDED PRESCRIPTION Home Oxygen @ 2L-4L Nasal Can* Problem List As Of Date 02/21/2018 Noted Resolved Pure Hypercholesterolemia [E78.00] INVALID FOR* More... Essential hypertension [I10] INVALID FOR* More... 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 Lymphedema, not elsewhere classified [I89.0] INVALID FOR* Benign neoplasm of colon [D12.6] INVALID FOR*08/19/2012 Achilles bursitis or tendinitis [M76.60] INVALID FOR*08/19/2012 Unspecified sleep apnea [G47.30] INVALID FOR*06/13/2016 More... Non-healing surgical wound [T81.89XA] INVALID FOR*08/19/2012 Protein calorie malnutrition [E46] INVALID FOR*08/19/2012 More... PUD (peptic ulcer disease) [K27.9] INVALID FOR*08/19/2012 More... Pain in joint [M25.50] INVALID FOR*06/13/2016 Vitamin D deficiency [E55.9] INVALID FOR* Preop exam for internal medicine [Z01.818] 08/19/2012 Open wound of knee, leg (except thigh), and ank*INVALID FOR*08/19/2012 Hypertension [I10] INVALID FOR*06/13/2016 BMI 50.0-59.9, adult (HCC) [Z68.43] INVALID FOR*06/16/2014 JUSTINA (obstructive sleep apnea) [G47.33] INVALID FOR* Pulmonary hypertension (HCC) [I27.20] INVALID FOR* BMI 45.0-49.9, adult (HCC) [Z68.42] INVALID FOR*10/15/2014 BMI 40.0-44.9, adult (HCC) [Z68.41] INVALID FOR*03/28/2017 More... Allergic rhinitis [J30.9] INVALID FOR* Impaired glucose metabolism [R73.09] INVALID FOR* More... On home oxygen therapy [Z99.81] INVALID FOR* Staphylococcus epidermidis infection [B95.7] INVALID FOR*03/28/2017 Dysphagia, unspecified(787.20) [R13.10] INVALID FOR* Morbid obesity with BMI of 50.0-59.9, adult (HC* Venous stasis dermatitis [I87.2] Notes for Staff Call patient with results Other instructions from your clinician: IMPRESSION AND RECOMMENDATIONS: 1. 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 ?Last 6 minute walk more than 2 years ago. Last echocardiogram 2015.? - Continue BiPAP and O2 with any sleep. - Oxygen at 3.5L rest, increased to 6 L with any activity. - Current echocardiogram and 6 minute walk to re-assess. Further recommendations to follow results. ? 2. Obstructive sleep apnea. - Reviewed most recent BiPAP report. Will discuss with Dr. Singh. - Continue BiPAP and oxygen. ? 3. Morbid obesity. Body Mass Index (BMI) today is 50.54 at current weight of 294 pounds. Normal BMI is 18.5-25, corresponding to a goal weight range of 110-150 pounds in an individual 5'4 in height. The patient is at least 144 pounds overweight. - Weight loss is critical. Consider referral to Weight Management program such as Weight Watchers, or to Bariatric Surgery program. Deferred to Primary Care Physician, Yolande Chairez MD. Thelma Singh MD, [facility] [address] [place] [address] P: [phone] F: [phone] [email or web address] Follow Up: Call patient with results Follow-up and Disposition History Recorded Encounter Status:Closed by THELMA SINGH MD on 03/01/18 PROGRESS Observed: 02/21/2018 Status: COMPLETED Source: [facility] 2:58 PM [facility] REPOSITORY HNO ID: [id number] Author: Thelma Singh Service: (none) Author Type: Physician Type: Progress Notes Filed: 03/01/2018 4:09 PM Note Text: [facility], 02/21/2018: ? HPI: Since the last visit, the patient has not required hospitalization. Patient compliant with prescribed PAP Rx, current compliance report scanned into record. No change in occasional cough. No sputum, hemoptysis, pleuritic chest pain, wheezing. Stable exertional dyspnea with exertion. Nasal congestion and post nasal drip. Continuous supplemental oxygen 3.5 L. DME: [facility] ? PMH changes: Reviewed with patient today. FAMH changes: Reviewed with patient today. SOCH changes: No changes. ? ROS: Reviewed with patient, confirmed as documented by Yenifer Myers LPN. TO ? Allergies were reviewed and updated, and medications were reconciled with the patient. ? PHYSICAL EXAMINATION: BP 122/80 Pulse 85 Resp 15 Ht 5' 4 (1.63m) Wt 294 lb 9.6 oz (133.6kg) SpO2 97% BMI 50.54 kg/(m2). Gen: No acute distress. Cooperative with examination. ENT: Sclerae clear. EOMI. Nares clear. Oral hygeine good. Resp: No stridor, accessory respiratory muscle use, supra- sternal or intercostal retractions. No wheezes, crackles, rubs. CV: Regular rythm. Heart tones normal. Radial pulses normal. Abd: Non distended. MSK: No kyphoscoliosis, joint deformities. Ext: Warm and well perfused. No clubbing, cyanosis, edema. Skin: Color normal. Texture normal. No rash, eczema, urticaria, ecchymoses. Neuro: Mental status normal. Affect normal. Muscle tone normal. No tremor. ? DATA REVIEW: CXR, 08/01/17 IMPRESSION: Stable exam without acute findings. RESULT: Lines, tubes, and devices: ?None. Lungs and pleura: ?No consolidation. No lung mass. No pleural effusion. ? Persistent eventration of the right hemidiaphragm noted. Cardiomediastinal silhouette: ?Normal cardiomediastinal silhouette. Other: ?There are degenerative changes in the spine. ? IMPRESSION AND RECOMMENDATIONS: 1. 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 ?Last 6 minute walk more than 2 years ago. Last echocardiogram 2016.? - Continue BiPAP and O2 with any sleep. - Oxygen at 3.5L rest, increased to 6 L with any activity. - Current echocardiogram and 6 minute walk to re-assess. Further recommendations to follow results. ? 2. Obstructive sleep apnea. - Reviewed most recent BiPAP report. Will discuss with Dr. Singh. - Continue BiPAP and oxygen. ? 3. Morbid obesity. Body Mass Index (BMI) today is 50.54 at current weight of 294 pounds. Normal BMI is 18.5-25, corresponding to a goal weight range of 110-150 pounds in an individual 5'4 in height. The patient is at least 144 pounds overweight. - Weight loss is critical. Consider referral to Weight Management program such as Weight Watchers, or to Bariatric Surgery program. Deferred to Primary Care Physician, Yolande Chairez MD. ? I addressed the questions of the patient, and she expressed understanding and acceptance of my answers. ? Thelma Singh MD, [facility] [address] [place] [address] P: [phone] F: [phone] [email or web address] ? ? COMP METABOLIC PANEL Collected: 11/28/2017 Status: F Source: [facility] 10:19 AM [facility] REPOSITORY TYPE CODE TESTS RESULT OUT OF REFERENCE UNITS RANGE LAB TP 6.3-8.0 g/dL Protein, Total 7.7 LAB ALB 3.9-4.9 g/dL Albumin 4.2 LAB CA 8.5-10.2 mg/dL Calcium, Total 8.9 LAB TBIL 0.2-1.3 mg/dL Bilirubin, Total 0.4 LAB ALKP 32-117 U/L Alkaline Phosphatase 54 LAB AST 13-35 U/L AST 19 LAB GLU 74-99 mg/dL Glucose 97 Result Comment: The [place] Diabetes Association (ADA) provides guidance for cutoff values for fasting glucose and random glucose. The ADA defines fasting as no caloric intake for at least 8 hours. Fas ting plasma glucose results between 100 to 125 mg/dL indicate increased risk for diabetes (prediabetes). Fasting plasma glucose results greater than or equal to 126 mg/dL meet the criteria for diagnosis of diabetes. In the absence of unequivocal hyperglycemia, results should be confirmed by repeat testing. In a patient with classic symptoms of hyperglycemia or hyperglycemic crisis, random plasma glucose results greater than or equal to 200 mg/dL meet the criteria for diagnosis of diabetes. Reference: Standards of Medical Care in Diabetes 2016, Canadian Diabetes Association. Diabetes Care. 2016.39(Suppl 1). LAB BUN 7-21 mg/dL BUN 13 LAB CRET 0.58-0.96 mg/dL Low Creatinine 0.55 LAB NA 136-144 mmol/L Sodium 138 LAB K 3.7-5.1 mmol/L Potassium 4.0 LAB CL 97-105 mmol/L Low Chloride 92 LAB CO2 22-30 mmol/L CO2 High 36 LAB AGAP 9-18 mmol/L Anion Gap 10 LAB ALT 7-38 U/L ALT 14 LAB GFRAA eGFR- Amer. >60 LAB GFRNAA . eGFR-All Other Races >60 Result Comment: eGFR (Estimated GFR) Units of measure: mL/min/1.73 meters squared eGFR is derived from the reexpressed MDRD Study equation using the following parameters: serum creatinine, age, gender and race. The creatinine assay has been calibrated to be traceable to IDMS. An eGFR <60 mL/min/1.73m2 for >3 months is consistent with chronic kidney disease. Refer to KDOQI guidelines for clinical interpretation. In patients with unstable renal function, e.g. those with acute kidney injury, the eGFR may not accurately reflect actual GFR. Performed By: #### CMP, VITD #### [facility] [address] [place], [place] [address] VITAMIN D 25 HYDROXY Collected: 11/28/2017 Status: F Source: [facility] 10:19 AM [facility] REPOSITORY TYPE CODE TESTS RESULT OUT OF REFERENCE UNITS RANGE LAB VITD 31.0-80.0 ng/mL Vitamin D 25 39.3 Hydroxy Result Comment: Classification of 25 [place] Vitamin D status: Insufficiency/Moderate Deficiency: < or = 30 ng/mL Sufficiency/Optimal Levels: 31 to 80 ng/mL Toxicity: > 100 ng/mL Test performed by chemiluminescent immunoassay. Performed By: #### CMP, VITD #### [facility] [address] [place], [place] [address] CNOV Observed: 11/28/2017 Status: COMPLETED Source: [facility] 9:20 AM [facility] REPOSITORY Office Visit (FAMPWS) VENICE CROFT ([id number]) 1945 F Date Time Provider Department 11/28/17 9:20 AM YOLANDE CHAIREZ) FAMPWS During your visit today, we recorded the following information about you: Temperature Pulse Respiration Blood pressure 97.9 degrees 70/minute 20/minute 132/82 Weight 133.8 kg Yolande Chairez MD 11/28/2017 1:19 PM Signed Chief Complaint No chief complaint on file. HPI Venice Croft is a 72 year old female who presents here today for 4 month follow up. Since last OV, patient has followed up with Dr. Singh's office and they recommended continued home oxygen on 3.5 L NC and use of bipap for pulmonary HTN. Has also been seen by GI for dysphagia and gastroparesis and was recommended dietary changes without new medications. Complaining of redness on LE bilaterally which has been chronic without recent changes. Has bilateral leg swelling without edema which she attributes to her weight gain. Has gained more than 10 lbs since last OV. Patient has not been controlling her diet or exercising. Discussed risks of continued morbid obesity. Taking medications as prescribed without side effects. Past medical history, appointments, medications, allergies reviewed. 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 Boyd - Fracture - Gastroparesis - Gastroparesis - GERD (gastroesophageal reflux disease) - History of poliomyelitis age 8 - Impaired glucose tolerance test - Morbid obesity with BMI of 50.0-59.9, adult (FORMERLY [facility]) - On home oxygen therapy - Open wound of knee, leg (except thigh), and ankle, complicated - JUSTINA (obstructive sleep apnea) uses bipap nightly - Pulmonary hypertension Seeing Dr. Singh - Pure hypercholesterolemia - Unspecified essential hypertension Previous Surgical History PAST SURGICAL HISTORY Procedure Laterality Date - BX OF BREAST; INCISIONAL Bx of breast, incisional multiple, benign - COLONOSCOP W/ OR W/O [facility] SPEC N/A 11/14/2016 repeat in 2 years - COLONOSCOPY W/BX 10/27/08 - DANDamp;C, DIAG AND/OR THERAPEUTIC - EMERGENCY TRACHEOTOMY Polio at the age of 8 - KNEE SCOPE,DIAGNOSTIC 1990s Arthroscopy, knee RIGHT - REMOVE CATARACT, INSERT LENS, INTRACAPSUL Bilateral 05/2016 - REMOVE TONSILS/ADENOIDS,ANDlt;10 Y/O - TOTAL HIP REPLACEMENT 06/2007 Hip replacement, total right - TOTAL KNEE REPLACEMENT 12/2007 Knee replacement, total knee - TOTAL KNEE REPLACEMENT 04/24 Knee replacement, total Family History FAMILY HISTORY Problem Relation Age of Onset - Diabetes Mother - Cancer Mother Bladder - Stroke Mother - Diabetes Maternal Aunt - Diabetes Maternal Uncle HEART DISEASE - Heart Maternal Grandmother Patient Allergies ALLERGIES Allergen Reactions - Daniel Inhibitors Swelling Lips. - Lipitor [Atorvastat* Muscle aches - Panafil [Papain-Ure* Intolerance ? - Ampicillin Rash Bilateral arms. - Darvocet-N 100 [Pro* Mental Status Change, Other: See Comments Dizziness. - Percocet [Oxycodone* Mental Status Change Current Medications Current Outpatient Prescriptions on File Prior to Visit: fluticasone (FLONASE) 50 mcg/actuation nasal spray Use 2 Sprays in each nostril once daily. doxycycline monohydrate (MONODOX) 100 mg capsule Take 1 capsule by mouth once daily. GUAIFENESIN/DEXTROMETHORPHAN (MUCINEX DM ORAL) Take by mouth twice daily. cetirizine (ZYRTEC) 10 mg tablet Take 1 tablet by mouth once daily. simvastatin (ZOCOR) 20 mg tablet Take 0.5 tablets by mouth daily at bedtime. lansoprazole (PREVACID) 15 mg capsule Take 2 capsules by mouth every evening. hydroCHLOROthiazide (HYDRODIURIL, ESIDRIX) 25 mg tablet Take 0.5 tablets by mouth once daily. aspirin, enteric coated (ADULT LOW DOSE ASPIRIN) 81 mg EC tablet Take 1 tablet by mouth once daily. CPAP Decrease the Bilevel setting to 13/8 cm h20 with 3 LPM of oxygen. COMPOUNDED PRESCRIPTION Home Oxygen @ 2L-4L Nasal Canula - continuous Diagnoses: Hypoxia 799.02, Dyspnea 786.09, Pulmonary Hypertension 416.8 Cholecalciferol, Vitamin D3, (VITAMIN D) 2,000 unit ORAL Cap Take one(1) tablet two(2) times daily. doxycycline monohydrate (MONODOX) 100 mg capsule Take 1 capsule by mouth once daily. MULTIVITAMIN ORAL Take 1 tablet by mouth once daily. No current facility-administered medications on file prior to visit. Social History Social History Marital status: Single Spouse name: Years of education: Number of children: 0 Occupational History Occupation Employer Comment Retired [employer] Social History Main Topics Smoking status: Never Smoker Smokeless status: Never Used Comment: Parents non-smokers. Alcohol use: No Drug use: No Sexual activity: No Review of Symptoms REVIEW OF SYSTEMS GENERAL: No weight loss, malaise or fevers NECK: Negative for lumps, goiter, pain and significant neck swelling RESPIRATORY: Negative for cough, hemoptysis, wheezing, COPD, dyspnea or shortness of breath CARDIOVASCULAR: Negative for chest pain,hypertension, CHF or palpitations. Admits to chronic leg swelling GI: No nausea, vomiting, or diarrhea SKIN: Negative for lesions, rash, and itching EXAM: BP 132/82 Pulse 70 Temp 36.6 ?C (97.9 ?F) (Temporal Artery) Resp 20 Wt 133.8 kg (295 lb) SpO2 99% BMI 52.26 kg/m2 General Appearance: Well appearing, alert, in no acute distress, well-hydrated, well nourished.. Skin: venous statis changes at mid izquierdo bilaterally. Erythema without ulceration or skin breakdown. Lungs: Lungs clear to auscultation. No wheezing, rhonchi, rales. Heart: RRR without murmur, gallop, or rubs. No ectopy. Abdomen: Normal abdominal exam, Abdomen soft, non-tender. Bowel sounds normal. No masses, organomegaly. Extremities: No deformities, edema, skin discoloration, clubbing or cyanosis. Good capillary refill. . Health Maintenance List MAMMOGRAM due on 08/21/2017 TETANUS due on 11/24/2018 COLORECTAL CANCER SCREENING,SEE MODIFIER due on 01/17/2019 DIABETES SCREEN due on 07/28/2020 LIPID SCREEN due on 04/06/2022 BONE DENSITY Completed ADULT PREVNAR-13 Completed INFLUENZA Completed PNEUMOVAX AGE 65 AND OVER WITH 5YR LOOKBACK Completed Data reviewed Component Latest Ref Rng ANDamp; Units 03/23/2017 04/06/2017 07/28/2017 WBC 3.70 - 11.00 k/uL 5.79 RBC 3.90 - 5.20 m/uL 4.38 Hemoglobin 11.5 - 15.5 g/dL 12.9 Hematocrit 36.0 - 46.0 % 41.2 MCV 80.0 - 100.0 fL 94.1 MCH 26.0 - 34.0 pG 29.5 MCHC 30.5 - 36.0 g/dL 31.3 RDW-CV 11.5 - 15.0 % 12.8 Platelet Count 150 - 400 k/uL 185 MPV 9.0 - 12.7 fL 10.8 Neut% % 60.1 Abs Neut (ANC) 1.45 - 7.50 k/uL 3.48 Lymph% % 26.1 Abs Lymph 1.00 - 4.00 k/uL 1.51 Ringgold% % 8.5 Abs Ringgold 0.00 - 0.86 k/uL 0.49 Eosin% % 5.0 Abs Eosin 0.00 - 0.45 k/uL 0.29 Baso% % 0.3 Abs Baso 0.00 - 0.10 k/uL 0.02 Nucleated Reds 0 /100 WBC 0.0 Absolute nRBC k/uL 0.00 Diff Type Auto Diff Protein, Total 6.3 - 8.0 g/dL 7.0 7.0 7.5 Albumin 3.9 - 4.9 g/dL 3.7 (L) 4.0 4.1 Calcium 8.5 - 10.2 mg/dL 9.6 8.2 (L) 9.2 Bilirubin, Total 0.2 - 1.3 mg/dL 0.6 0.4 0.4 Alkaline Phosphatase 32 - 117 U/L 52 51 56 AST 13 - 35 U/L 19 18 22 Glucose 74 - 99 mg/dL 109 (H) 109 (H) 114 (H) BUN 7 - 21 mg/dL 13 16 12 Creatinine 0.58 - 0.96 mg/dL 0.63 0.60 0.65 Sodium 136 - 144 mmol/L 142 140 144 Potassium 3.7 - 5.1 mmol/L 4.2 4.4 4.2 Chloride 97 - 105 mmol/L 96 (L) 95 (L) 96 (L) CO2 22 - 30 mmol/L 31 (H) 31 (H) 37 (H) Anion Gap 9 - 18 mmol/L 15 14 11 ALT 7 - 38 U/L 12 12 15 eGFR- ANDgt;60 ANDgt;60 ANDgt;60 eGFR-All Other Races . ANDgt;60 ANDgt;60 ANDgt;60 Triglyceride 30 - 149 mg/dL 99 120 Cholesterol, Total 100 - 199 mg/dL 205 (H) 191 HDL Cholesterol ANDgt;55 mg/dL 78 75 VLDL Cholesterol 6 - 40 mg/dL 20 24 LDL Cholesterol 60 - 129 mg/dL 107 92 Fasting Time hrs 12 3 TC:HDL Ratio 1.00 - 5.00 2.63 2.55 LDL:HDL Ratio 0.50 - 3.55 1.37 1.23 Non HDL Cholesterol 90 - 159 mg/dL 127 116 Hemoglobin A1C 4.3 - 5.6 % 5.4 5.2 Estimated Average Glucose mg/dL 108 103 TSH 0.400 - 5.500 uU/mL 2.920 ASSESSMENT/PLAN: 1. Essential hypertension - ICD9: 401.9, ICD10: I10 (primary diagnosis) - good control - Continue current medication(s) - Encouraged dietary sodium restriction/DASH diet - Recommended regular aerobic exercise. - Recommend home blood pressure monitoring, to bring results in on next visit - Reviewed risks of HTN and principles of treatment - Goal of BP ANDlt;140/90 2. Pure hypercholesterolemia - ICD9: 272.0, ICD10: E78.00 - good control - Continue current medication - Encouraged following a low fat, low cholesterol diet. - Discussed the benefits of regular aerobic exercise and weight loss. 3. Gastroesophageal reflux disease, esophagitis presence not specified - ICD9: 530.81, ICD10: K21.9 - Continue treatment with Prevacid 30 mg QD 4. JUSTINA (obstructive sleep apnea) - ICD9: 327.23, ICD10: G47.33 Continue BIPAP nightly. Working well for symptoms. 5. Pulmonary hypertension - ICD9: 416.8, ICD10: I27.20 Continue BIPAP nightly 6. Morbid obesity with BMI of 50.0-59.9, adult (HCC) - ICD9: 278.01, V85.43, ICD10: E66.01, Z68.43 Worsening. Discussed improved diet at home with exercise as able. 7. Vitamin D deficiency - ICD9: 268.9, ICD10: E55.9 Will repeat vitamin D level. - VITAMIN D 25 HYDROXY 8. Venous stasis dermatitis of both lower extremities - ICD9: 454.1, ICD10: I87.2 Patient wearing compression stockings daily. Discussed weight loss, keeping legs elevated, and continued use of stockings. Recheck in 6 months. Yolande Chairez MD Referring Provider: YOLANDE CHAIREZ) [[id number]] Allergies As of Date: 11/28/2017 Noted Allergy Reaction DANIEL INHIBITORS 06/15/2005 7 - Swelling Comments: Lips. LIPITOR (ATORVASTATIN CALCIUM) 06/15/2005 Comments: Muscle aches PANAFIL ([id number]*08/18/2005 5 - Intolerance Comments: ? AMPICILLIN 06/15/2005 2 - Rash Comments: Bilateral arms. DARVOCET-N 100 (PROPOXYPHENE N-AC*01/31/2010 1 - Mental Status Change 14 - Other: See Comments Comments: Dizziness. PERCOCET (OXYCODONE-ACETAMINOPHEN)01/31/2010 1 - Mental Status Change Date Reviewed: 11/28/2017 Reviewed by: John Vance Ma - Fully Assessed Primary Visit Diagnosis:Essential hypertension [I10] Other Visit Diagnoses:Pure hypercholesterolemia [E78.00] Gastroesophageal reflux disease, esophagitis presence not specified [K21.9] JUSTINA (obstructive sleep apnea) [G47.33] Pulmonary hypertension [I27.20] Morbid obesity with BMI of 50.0-59.9, adult (HCC) [E66.01, Z68.43] Vitamin D deficiency [E55.9] Venous stasis dermatitis of both lower extremities [I87.2] Order(s):VITAMIN D 25 HYDROXY [SQVITD] Order #: [id number] FUTURE Prescriptions as of 11/28/2017 Sig: FLUTICASONE 50 MCG/ACTUATION * Use 2 Sprays in each nostril * DOXYCYCLINE MONOHYDRATE 100 M* Take 1 capsule by mouth once * MUCINEX DM ORAL Take by mouth twice daily. CETIRIZINE 10 MG TABLET Take 1 tablet by mouth once d* SIMVASTATIN 20 MG TABLET Take 0.5 tablets by mouth matthew* LANSOPRAZOLE 15 MG CAPSULE,DE* Take 2 capsules by mouth ever* HYDROCHLOROTHIAZIDE 25 MG TAB* Take 0.5 tablets by mouth onc* ASPIRIN 81 MG TABLET,DELAYED * Take 1 tablet by mouth once d* CPAP Decrease the Bilevel setting * COMPOUNDED PRESCRIPTION Home Oxygen @ 2L-4L Nasal Can* CHOLECALCIFEROL (VITAMIN D3) * Take one(1) tablet two(2) corinne* Medication notes this encounter DOXYCYCLINE MONOHYDRATE 100 MG CAPSULE >> John Vance Ma 11/28/2017 9:07 AM >> JOHN VANCE MA SunNov 28, 2017 9:07 AM Duplicate please d/c Problem List As Of Date 11/28/2017 Noted Resolved Pure Hypercholesterolemia [E78.00] INVALID FOR* More... Essential hypertension [I10] INVALID FOR* More... 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 Lymphedema, not elsewhere classified [I89.0] INVALID FOR* Benign neoplasm of colon [D12.6] INVALID FOR*08/19/2012 Achilles bursitis or tendinitis [M76.60] INVALID FOR*08/19/2012 Unspecified sleep apnea [G47.30] INVALID FOR*06/13/2016 More... Non-healing surgical wound [T81.89XA] INVALID FOR*08/19/2012 Protein calorie malnutrition [E46] INVALID FOR*08/19/2012 More... PUD (peptic ulcer disease) [K27.9] INVALID FOR*08/19/2012 More... Pain in joint [M25.50] INVALID FOR*06/13/2016 Vitamin D deficiency [E55.9] INVALID FOR* Preop exam for internal medicine [Z01.818] 08/19/2012 Open wound of knee, leg (except thigh), and ank*INVALID FOR*08/19/2012 Hypertension [I10] INVALID FOR*06/13/2016 BMI 50.0-59.9, adult (HCC) [Z68.43] INVALID FOR*06/16/2014 JUSTINA (obstructive sleep apnea) [G47.33] INVALID FOR* Pulmonary hypertension (HCC) [I27.20] INVALID FOR* BMI 45.0-49.9, adult (HCC) [Z68.42] INVALID FOR*10/15/2014 BMI 40.0-44.9, adult (HCC) [Z68.41] INVALID FOR*03/28/2017 More... Allergic rhinitis [J30.9] INVALID FOR* Impaired glucose metabolism [R73.09] INVALID FOR* More... On home oxygen therapy [Z99.81] INVALID FOR* Staphylococcus epidermidis infection [B95.7] INVALID FOR*03/28/2017 Dysphagia, unspecified(787.20) [R13.10] INVALID FOR* Morbid obesity with BMI of 50.0-59.9, adult (HC* Venous stasis dermatitis [I87.2] Medications Discontinued During This Encounter doxycycline monohydrate (MONODOX) 10* 30 c* 0 04/02/2017 11/28/2017 Class: Historical Med Route: ORAL Sig: Take 1 capsule by mouth once daily. Disc: Reason for discontinue is not on file. MULTIVITAMIN ORAL 11/28/2017 Class: Historical Med Route: ORAL Sig: Take 1 tablet by mouth once daily. Disc: Reason for discontinue is not on file. Disposition: Return in about 4 months (around 03/30/2018). Follow-up and Disposition History Recorded Encounter Status:Closed by YOLANDE CHAIREZ MD on 11/28/17 PROGRESS Observed: 11/28/2017 Status: COMPLETED Source: [place] 9:10 AM [facility] REPOSITORY HNO ID: [id number] Author: Yolande Foss) Mihaela Service: (none) Author Type: Physician Type: Progress Notes Filed: 11/28/2017 1:19 PM Note Text: Chief Complaint No chief complaint on file. HPI Venice Croft is a 72 year old female who presents here today for 4 month follow up. Since last OV, patient has followed up with Dr. Singh's office and they recommended continued home oxygen on 3.5 L NC and use of bipap for pulmonary HTN. Has also been seen by GI for dysphagia and gastroparesis and was recommended dietary changes without new medications. Complaining of redness on LE bilaterally which has been chronic without recent changes. Has bilateral leg swelling without edema which she attributes to her weight gain. Has gained more than 10 lbs since last OV. Patient has not been controlling her diet or exercising. Discussed risks of continued morbid obesity. Taking medications as prescribed without side effects. Past medical history, appointments, medications, allergies reviewed. 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 Boyd - Fracture - Gastroparesis - Gastroparesis - GERD (gastroesophageal reflux disease) - History of poliomyelitis age 8 - Impaired glucose tolerance test - Morbid obesity with BMI of 50.0-59.9, adult (HCC) - On home oxygen therapy - Open wound of knee, leg (except thigh), and ankle, complicated - JUSTINA (obstructive sleep apnea) uses bipap nightly - Pulmonary hypertension Seeing Dr. Singh - Pure hypercholesterolemia - Unspecified essential hypertension Previous Surgical History PAST SURGICAL HISTORY Procedure Laterality Date - BX OF BREAST; INCISIONAL Bx of breast, incisional multiple, benign - COLONOSCOP W/ OR W/O [facility] SPEC N/A 11/14/2016 repeat in 2 years - COLONOSCOPY W/BX 10/27/08 - DANDC, DIAG AND/OR THERAPEUTIC - EMERGENCY TRACHEOTOMY Polio at the age of 8 - KNEE SCOPE,DIAGNOSTIC 1990s Arthroscopy, knee RIGHT - REMOVE CATARACT, INSERT LENS, INTRACAPSUL Bilateral 05/2016 - REMOVE TONSILS/ADENOIDS,<12 Y/O - TOTAL HIP REPLACEMENT 06/2007 Hip replacement, total right - TOTAL KNEE REPLACEMENT 12/2007 Knee replacement, total knee - TOTAL KNEE REPLACEMENT 04/24 Knee replacement, total Family History FAMILY HISTORY Problem Relation Age of Onset - Diabetes Mother - Cancer Mother Bladder - Stroke Mother - Diabetes Maternal Aunt - Diabetes Maternal Uncle HEART DISEASE - Heart Maternal Grandmother Patient Allergies ALLERGIES Allergen Reactions - Daniel Inhibitors Swelling Lips. - Lipitor [Atorvastat* Muscle aches - Panafil [Papain-Ure* Intolerance ? - Ampicillin Rash Bilateral arms. - Darvocet-N 100 [Pro* Mental Status Change, Other: See Comments Dizziness. - Percocet [Oxycodone* Mental Status Change Current Medications Current Outpatient Prescriptions on File Prior to Visit: fluticasone (FLONASE) 50 mcg/actuation nasal spray Use 2 Sprays in each nostril once daily. doxycycline monohydrate (MONODOX) 100 mg capsule Take 1 capsule by mouth once daily. GUAIFENESIN/DEXTROMETHORPHAN (MUCINEX DM ORAL) Take by mouth twice daily. cetirizine (ZYRTEC) 10 mg tablet Take 1 tablet by mouth once daily. simvastatin (ZOCOR) 20 mg tablet Take 0.5 tablets by mouth daily at bedtime. lansoprazole (PREVACID) 15 mg capsule Take 2 capsules by mouth every evening. hydroCHLOROthiazide (HYDRODIURIL, ESIDRIX) 25 mg tablet Take 0.5 tablets by mouth once daily. aspirin, enteric coated (ADULT LOW DOSE ASPIRIN) 81 mg EC tablet Take 1 tablet by mouth once daily. CPAP Decrease the Bilevel setting to 13/8 cm h20 with 3 LPM of oxygen. COMPOUNDED PRESCRIPTION Home Oxygen @ 2L-4L Nasal Canula - continuous Diagnoses: Hypoxia 799.02, Dyspnea 786.09, Pulmonary Hypertension 416.8 Cholecalciferol, Vitamin D3, (VITAMIN D) 2,000 unit ORAL Cap Take one(1) tablet two(2) times daily. doxycycline monohydrate (MONODOX) 100 mg capsule Take 1 capsule by mouth once daily. MULTIVITAMIN ORAL Take 1 tablet by mouth once daily. No current facility-administered medications on file prior to visit. Social History Social History Marital status: Single Spouse name: Years of education: Number of children: 0 Occupational History Occupation Employer Comment Retired [employer] Social History Main Topics Smoking status: Never Smoker Smokeless status: Never Used Comment: Parents non-smokers. Alcohol use: No Drug use: No Sexual activity: No Review of Symptoms REVIEW OF SYSTEMS GENERAL: No weight loss, malaise or fevers NECK: Negative for lumps, goiter, pain and significant neck swelling RESPIRATORY: Negative for cough, hemoptysis, wheezing, COPD, dyspnea or shortness of breath CARDIOVASCULAR: Negative for chest pain,hypertension, CHF or palpitations. Admits to chronic leg swelling GI: No nausea, vomiting, or diarrhea SKIN: Negative for lesions, rash, and itching EXAM: BP 132/82 Pulse 70 Temp 36.6 ?C (97.9 ?F) (Temporal Artery) Resp 20 Wt 133.8 kg (295 lb) SpO2 99% BMI 52.26 kg/m2 General Appearance: Well appearing, alert, in no acute distress, well-hydrated, well nourished.. Skin: venous statis changes at mid izquierdo bilaterally. Erythema without ulceration or skin breakdown. Lungs: Lungs clear to auscultation. No wheezing, rhonchi, rales. Heart: RRR without murmur, gallop, or rubs. No ectopy. Abdomen: Normal abdominal exam, Abdomen soft, non-tender. Bowel sounds normal. No masses, organomegaly. Extremities: No deformities, edema, skin discoloration, clubbing or cyanosis. Good capillary refill. . Health Maintenance List MAMMOGRAM due on 08/21/2017 TETANUS due on 11/24/2018 COLORECTAL CANCER SCREENING,SEE MODIFIER due on 01/17/2019 DIABETES SCREEN due on 07/28/2020 LIPID SCREEN due on 04/06/2022 BONE DENSITY Completed ADULT PREVNAR-13 Completed INFLUENZA Completed PNEUMOVAX AGE 65 AND OVER WITH 5YR LOOKBACK Completed Data reviewed Component Latest Ref Rng AND Units 03/23/2017 04/06/2017 07/28/2017 WBC 3.70 - 11.00 k/uL 5.79 RBC 3.90 - 5.20 m/uL 4.38 Hemoglobin 11.5 - 15.5 g/dL 12.9 Hematocrit 36.0 - 46.0 % 41.2 MCV 80.0 - 100.0 fL 94.1 MCH 26.0 - 34.0 pG 29.5 MCHC 30.5 - 36.0 g/dL 31.3 RDW-CV 11.5 - 15.0 % 12.8 Platelet Count 150 - 400 k/uL 185 MPV 9.0 - 12.7 fL 10.8 Neut% % 60.1 Abs Neut (ANC) 1.45 - 7.50 k/uL 3.48 Lymph% % 26.1 Abs Lymph 1.00 - 4.00 k/uL 1.51 Ringgold% % 8.5 Abs Ringgold 0.00 - 0.86 k/uL 0.49 Eosin% % 5.0 Abs Eosin 0.00 - 0.45 k/uL 0.29 Baso% % 0.3 Abs Baso 0.00 - 0.10 k/uL 0.02 Nucleated Reds 0 /100 WBC 0.0 Absolute nRBC k/uL 0.00 Diff Type Auto Diff Protein, Total 6.3 - 8.0 g/dL 7.0 7.0 7.5 Albumin 3.9 - 4.9 g/dL 3.7 (L) 4.0 4.1 Calcium 8.5 - 10.2 mg/dL 9.6 8.2 (L) 9.2 Bilirubin, Total 0.2 - 1.3 mg/dL 0.6 0.4 0.4 Alkaline Phosphatase 32 - 117 U/L 52 51 56 AST 13 - 35 U/L 19 18 22 Glucose 74 - 99 mg/dL 109 (H) 109 (H) 114 (H) BUN 7 - 21 mg/dL 13 16 12 Creatinine 0.58 - 0.96 mg/dL 0.63 0.60 0.65 Sodium 136 - 144 mmol/L 142 140 144 Potassium 3.7 - 5.1 mmol/L 4.2 4.4 4.2 Chloride 97 - 105 mmol/L 96 (L) 95 (L) 96 (L) CO2 22 - 30 mmol/L 31 (H) 31 (H) 37 (H) Anion Gap 9 - 18 mmol/L 15 14 11 ALT 7 - 38 U/L 12 12 15 eGFR- >60 >60 >60 eGFR-All Other Races . >60 >60 >60 Triglyceride 30 - 149 mg/dL 99 120 Cholesterol, Total 100 - 199 mg/dL 205 (H) 191 HDL Cholesterol >55 mg/dL 78 75 VLDL Cholesterol 6 - 40 mg/dL 20 24 LDL Cholesterol 60 - 129 mg/dL 107 92 Fasting Time hrs 12 3 TC:HDL Ratio 1.00 - 5.00 2.63 2.55 LDL:HDL Ratio 0.50 - 3.55 1.37 1.23 Non HDL Cholesterol 90 - 159 mg/dL 127 116 Hemoglobin A1C 4.3 - 5.6 % 5.4 5.2 Estimated Average Glucose mg/dL 108 103 TSH 0.400 - 5.500 uU/mL 2.920 ASSESSMENT/PLAN: 1. Essential hypertension - ICD9: 401.9, ICD10: I10 (primary diagnosis) - good control - Continue current medication(s) - Encouraged dietary sodium restriction/DASH diet - Recommended regular aerobic exercise. - Recommend home blood pressure monitoring, to bring results in on next visit - Reviewed risks of HTN and principles of treatment - Goal of BP <140/90 2. Pure hypercholesterolemia - ICD9: 272.0, ICD10: E78.00 - good control - Continue current medication - Encouraged following a low fat, low cholesterol diet. - Discussed the benefits of regular aerobic exercise and weight loss. 3. Gastroesophageal reflux disease, esophagitis presence not specified - ICD9: 530.81, ICD10: K21.9 - Continue treatment with Prevacid 30 mg QD 4. JUSTINA (obstructive sleep apnea) - ICD9: 327.23, ICD10: G47.33 Continue BIPAP nightly. Working well for symptoms. 5. Pulmonary hypertension - ICD9: 416.8, ICD10: I27.20 Continue BIPAP nightly 6. Morbid obesity with BMI of 50.0-59.9, adult (HCC) - ICD9: 278.01, V85.43, ICD10: E66.01, Z68.43 Worsening. Discussed improved diet at home with exercise as able. 7. Vitamin D deficiency - ICD9: 268.9, ICD10: E55.9 Will repeat vitamin D level. - VITAMIN D 25 HYDROXY 8. Venous stasis dermatitis of both lower extremities - ICD9: 454.1, ICD10: I87.2 Patient wearing compression stockings daily. Discussed weight loss, keeping legs elevated, and continued use of stockings. Recheck in 6 months. Yolande Chairez MD ALLERGIES ALLERGIES DATE TYPE / NAME / CODE REACTION SEVERITY SOURCE CODE 10/03/2018 Drug DANIEL Hives Unknown [place] Allergy/41 Inhibitors/[id number] [facility] [id number]( 147(RXNORM) [facility]) Repository 10/03/2018 Drug oxycodone/[id number] Upset Stomach Unknown [place] Allergy/41 58(RXNORM) Community 0006345([facility]) Repository 10/03/2018 Drug propoxyphene/F0060 Upset Stomach Unknown [place] Allergy/41 77205(RXNORM) Community [id number]([facility]) Repository 10/03/2018 Drug papain/[id number]( Other Unknown [place] Allergy/41 RXNORM) Community 0562444([facility]) Repository 10/03/2018 Drug chlorophyllin/F006 Other Unknown [place] Allergy/41 455381(RXNORM) Community 1407959([facility]) Repository 10/03/2018 Drug urea/[id number](RX Other Unknown [place] Allergy/41 NORM) Community 9110185([facility]) Repository 10/03/2018 Drug ampicillin/M539428 Hives Unknown [place] Allergy/41 692(RXNORM) Community 7258068([facility]) Repository 10/03/2018 Drug atorvastatin/F0060 Other Unknown [place] Allergy/41 69003(RXNORM) [facility] 2111983([facility]) Repository 01/31/2010 DRUG/88526 PROPOXYPHENE Mental Chg [facility] 1003(SNOME N-ACETAMINOPHEN [place] [facility]) Repository 01/31/2010 DRUG/95779 OXYCODONE-ACETAMIN Mental Chg [facility] 1003(SNOME OPHEN [place] [facility]) Repository 08/18/2005 DRUG/99102 [id number] INTOLERANCE [facility] 1003(SNOME PHYLLIN [place] [facility]) Repository 06/15/2005 Drug DANIEL INHIBITORS SWELLING [facility] Class/4195 [place] [address](SNOM Repository ED CT) 06/15/2005 DRUG ATORVASTATIN [facility] INGREDI/41 CALCIUM [place] [id number]( Repository OMED CT) 06/15/2005 DRUG AMPICILLIN RASH [facility] INGREDI/41 [place] 2139229( Repository OMED CT) ENCOUNTERS ENCOUNTERS ADMIT/DISCHARGE ACCOUNT ADMITTING ENCOUNTER LOCATION SOURCE NUMBER CLASS 10/11/2018 [id number] Ambulatory [place] Mauricio [facility] ing:[facility] Repository 10/09/2018 [id number] Ambulatory [facility] Hospital ing:CT Repository 10/07/2018/10/07/19 [id number] Ambulatory [place] [facility] [place] Repository 10/04/2018/10/07/19 [id number] Ambulatory [address] [place] Repository 10/04/2018/10/07/19 [id number] Ambulatory [place] [facility] [place] Repository 10/03/2018 [id number] Ambulatory [facility] Hospital ing:LAB Repository 10/03/2018/10/03/19 [id number] Ambulatory BMSBuilding:Mat Vargas [facility] Repository 09/27/2018 [id number] Ambulatory BMSBuilding:Mat Martínez MS.[facility] Repository 09/27/2018/09/27/19 [id number] Ambulatory [address] [place] Repository 09/24/2018/09/26/19 [id number] Ambulatory [address] [place] Repository 09/24/2018/09/24/19 [id number] Ambulatory [address] [place] Repository 09/20/2018 [id number] Ambulatory [facility] Hospital ing:OPBI Repository 09/19/2018/09/20/19 [id number] Ambulatory [place] [facility] [place] Repository 09/19/2018/09/19/19 [id number] Ambulatory [place] [facility] [place] Repository 09/16/2018/09/16/20 [id number] Ambulatory [place] [facility] [place] Repository 09/13/2018/09/13/20 [id number] [facility] [facility] [place] Repository 09/11/2018/09/11/20 [id number] Ambulatory [place] [facility] [place] Repository 09/11/2018/09/12/20 [id number] Ambulatory [place] [facility] [place] Repository 09/11/2018/09/11/20 [id number] Ambulatory [place] [facility] [place] Repository 09/03/2018/09/05/20 [id number] Ambulatory [place] [facility] [place] Repository 09/03/2018/10/01/19 [id number] Ambulatory [place] [facility] [place] Repository 08/22/2018/08/26/20 [id number] Ambulatory [place] [facility] [place] Repository 08/13/2018/08/14/20 [id number] Ambulatory [place] [facility] [place] Repository 08/06/2018/08/12/20 [id number] Ambulatory [place] [facility] [place] Repository 08/01/2018/08/01/20 [id number] Ambulatory [place] [facility] [place] Repository 08/01/2018/08/02/20 [id number] Ambulatory [place] [facility] [place] Repository 07/30/2018/07/31/20 [id number] Ambulatory [place] [facility] [place] Repository 07/25/2018/07/26/20 [id number] Ambulatory [place] [facility] [place] Repository 07/16/2018/07/22/20 [id number] Ambulatory [place] [facility] [place] Repository 07/12/2018/07/15/20 [id number] Ambulatory [place] [facility] [place] Repository 07/09/2018/07/11/20 [id number] Ambulatory [place] [facility] [place] Repository 06/18/2018/06/18/20 [id number] Amb[facility] [place] [facility] [place] Repository 06/11/2018/06/13/20 [id number] Amb[facility] [place] [facility] [place] Repository 06/04/2018/06/05/20 [id number] Amb[facility] [place] [facility] [place] Repository 05/28/2018/05/29/20 [id number] Amb[facility] [place] [facility] [place] Repository 05/14/2018/05/21/20 [id number] Ambulatory [place] [facility] [place] Repository 05/02/2018/06/07/20 [id number] Amb[facility] [place] [facility] [place] Repository 04/12/2018/04/15/20 [id number] Amb[facility] [place] [facility] [place] Repository 04/01/2018/04/01/20 [id number] Ambulatory [place] [facility] [place] Repository 04/01/2018/04/02/20 [id number] Ambulatory [place] [facility] [place] Repository 03/26/2018/03/26/20 [id number] [facility] [place] [facility] [place] Repository 03/04/2018/03/06/20 [id number] Ambulatory [place] [facility] [place] Repository 03/04/2018/03/04/20 [id number] Ambulatory [place] [facility] [place] Repository 02/21/2018/03/01/[id number] Repository 11/28/2017/11/29/[id number] Repository 11/28/2017/11/30/[id number] Repository PAYERS PAYERS ENCOUNTER GUARANTOR PAYER SUBSCRIBER SOURCE 10/11/2018 VENICE Pelaez Primary VENICE Martínez [id number] TR Insurance:MEDICARE PAULLINDOB: [address] [address]Pqh: Number: Repository [id number] (HP) Date:2018-10-04 10/11/2018 Secondary VENICE Martínez Insurance:MEDICAL PAULLINDOB: [address] Number: Repository [id number] Date:[id number] [address] [place] [id number]: 10/11/2018 Tertiary NOT GIVENUNK [place] Insurance:SELF PAY [facility] Number: Effective Repository Date:2018-10-04 10/09/2018 VENICE Pelaez Primary VENICE Martínez [id number] TR Insurance:MEDICARE PAULLINDOB: [address] [address]Nod: Number: Repository [id number] (HP) Date:2018-10-07 10/09/2018 Secondary VENICE Martínez Insurance:MEDICAL PAULLINDOB: [address] Number: Repository [id number] Date:[id number] [address] [place] [phone]: 10/09/2018 Tertiary NOT GIVENUNK [place] Insurance:SELF PAY [facility] Number: Effective Repository Date:2018-10-07 10/03/2018 VENICE Pelaez Primary VENICE Martínez [id number] TR Insurance:MEDICARE PAULLINDOB: [address] [address]Tdm: Number: Repository [id number] (HP) Date:2018-10-03 10/03/2018 Secondary VENICE Pelaez [place] Insurance:MEDICAL PAULLINDOB: [address] Number: Repository [id number] Date:6666-10-83EV [place] [id number]: 10/03/2018 Tertiary NOT GIVENUNK [place] Insurance:SELF PAY [facility] Number: Effective Repository Date:2018-10-03 10/03/2018 VENICE Pelaez Primary VENICE Martínez [id number] TR Insurance:MEDICARE PAULLINDOB: [address] [address]Umw: Number: Repository [id number] (HP) Date:2018-09-13 10/03/2018 Secondary VENICE Pelaez [place] Insurance:MMO PAULLINDOB: Community MEDICAREPolicy 1943UNK Hospital Number: Repository [id number] Date:7935-21-[place] [id number]: 10/03/2018 Tertiary NOT GIVENUNK [place] Insurance:SELF PAY [facility] Number: Effective Repository Date:2018-10-02 09/27/2018 VENICE F Primary VENICE Martínez [id number] TR Insurance:MEDICARE PAULLINDOB: [address] , [place] [address]Sui: Number: Repository [id number] (HP) Date:2018-09-27 09/27/2018 Secondary VENICE Pelaez [place] Insurance:MMO PAULLINDOB: Community MEDICAREPolicy 1943UNK Hospital Number: Repository [id number] Date:3731-64-64CC [address] [address]JW: 09/27/2018 Tertiary NOT GIVENUNK [place] Insurance:SELF PAY [facility] Number: Effective Repository Date:2018-09-27 09/20/2018 VENICE Pelaez Primary VENICE Martínez [id number] TR Insurance:MEDICARE MICHAELB: [address] [facility] [id number] [address]Zpc: Number: Repository [id number] () Date:2018-07-31 09/20/2018 Secondary VENICE Martínez Insurance:MMO ZEKEDOB: Community MEDICAREPolicy [id number] Number: Repository [id number] Date:0125-18-05MF [address] [place] [phone]: 09/20/2018 Tertiary NOT GIVENFRIDA [place] Insurance:SELF PAY [facility] Number: Effective Repository Date:2018-07-31
== END 2018-10-15 13:03 | disposition home or self-care (01) ==
LOC: LAB 12:03
PROVIDERS: Family Provider Family Medicine; PCP Family Medicine; Referring Provider Internal Medicine Cardiovascular Disease; Visit Provider Internal Medicine Cardiovascular Disease
DX: I48.0 Paroxysmal atrial fibrillation (principal); I10 Essential (primary) hypertension
CPT/HCPCS: 36415; 80048; 85610

== ENCOUNTER → 2018-11-01 12:48 | Outpatient (CLI) | payer MEDICARE, OTHER, SELFPAY ==
[2018-10-03 10:27] VITALS: BMI 50.1
--- NOTE | 2018-11-01 12:51 | CYSPIN_PTH ---
PATIENT: ELIGIO ALANIS LOC: LAB U#:[id number] AGE/SX: 80/F ROOM: RE11/01/[address]: Dr. Jordan Ames MD : 1945 BED: DIS: SPEC #: [id number] RECD: 11/01/18 13:46 STATUS: ERASMO REZeyad #: [id number] DANNI: 11/01/18 12:[address]: Jordan Ames DEPT: CYTOLOGY RECD BY: Prashant Seo ENTERED: 11/01/18 13:46 SP TYPE: CYSPIN FL OTHR DR: Dr. Jose Miguel Chairez MD Tissues: Urine Procedures: Pap Stain (control) Special Stain Group II Cytospin Fluid HEADER OPERATION: Not noted PRE-OP DIAGNOSIS: Hematuria TISSUE SUBMITTED: Urine for cytology DIAGNOSIS CYTOLOGY Urine for cytology (cytospin): Rare atypical urothelial cells present. See comment. AM:dereje 2/18/19 COMMENT The findings are nonspecific and could represent a variety of conditions including infection, urolithiasis, instrumentation and low grade urothelial neoplasm. Clinical correlation is necessary. Case has been reviewed in consultation with Dr. Orantes who concurs with the above diagnosis. IDC:SJ CYTOLOGY STUDY Slides are reviewed. CYTOLOGY GROSS Received is 120 ml of clear yellow fluid labeled with the patient's name and and designated per the requisition as urine. Submitted for cytology preparation. / 11/01/18 TC:? CPT: 51751
[2018-11-01 12:53] LABS: Cytology, Body Fluid / CSF SEE PATHOLOGY REPORT
== END ==
PROVIDERS: Family Provider Family Medicine; PCP Family Medicine; Referring Provider Urology; Visit Provider Urology
DX: R31.9 Hematuria, unspecified (principal)
CPT/HCPCS: 88108; 88313

== ENCOUNTER 2018-11-11 11:30 | Outpatient (RCR) | payer MEDICARE, OTHER, SELFPAY ==
[2018-10-03 10:27] VITALS: BMI 50.1
[2018-10-29 12:39] LABS: Prothrombin Time (Protime)PT. 22.3 SECONDS (11.7-14.9)
[2018-11-11 12:39] LABS: International Normalized Ratio 2.2; Prothrombin Time (Protime)PT. 24.7 SECONDS (11.7-14.9)
== END 2018-11-14 14:32 | disposition home or self-care (01) ==
LOC: LAB 11:30
PROVIDERS: Family Provider Family Medicine; PCP Family Medicine; Referring Provider Internal Medicine Cardiovascular Disease; Visit Provider Internal Medicine Cardiovascular Disease
DX: I48.0 Paroxysmal atrial fibrillation (principal)
CPT/HCPCS: 36415; 85610

== ENCOUNTER 2018-12-03 12:39 | Outpatient (RCR) | payer MEDICARE, OTHER, SELFPAY ==
[2018-11-15 14:34] VITALS: BMI 50.1
[2018-12-03 13:22] LABS: Prothrombin Time (Protime)PT. 22.3 SECONDS (11.7-14.9)
== END 2018-12-03 13:39 | disposition home or self-care (01) ==
LOC: LAB 12:39
PROVIDERS: Family Provider Family Medicine; PCP Family Medicine; Referring Provider Internal Medicine Cardiovascular Disease; Visit Provider Internal Medicine Cardiovascular Disease
DX: I48.0 Paroxysmal atrial fibrillation (principal)
CPT/HCPCS: 36415; 85610

== ENCOUNTER 2019-01-13 12:22 | Outpatient (RCR) | payer MEDICARE, OTHER, SELFPAY ==
[2018-12-13 13:50] VITALS: BMI 52.7
[2018-12-31 11:07] LABS: International Normalized Ratio 2.1; Prothrombin Time (Protime)PT. 23.8 SECONDS (11.7-14.9)
[2019-01-13 13:05] LABS: International Normalized Ratio 1.9; Prothrombin Time (Protime)PT. 21.3 SECONDS (11.7-14.9)
== END 2019-01-14 16:00 | disposition home or self-care (01) ==
LOC: LAB 12:22
PROVIDERS: Family Provider Family Medicine; PCP Family Medicine; Referring Provider Internal Medicine Cardiovascular Disease; Visit Provider Internal Medicine Cardiovascular Disease
DX: I48.0 Paroxysmal atrial fibrillation (principal)
CPT/HCPCS: 36415; 85610

== ENCOUNTER → 2019-01-16 08:02 | Outpatient (CLI) | payer MEDICARE, OTHER, SELFPAY ==
[2019-01-15 12:24] VITALS: BMI 52.7
--- NOTE | 2019-01-16 08:16 | RAD_ITS ---
PROCEDURE: Fluoroscopic guided left Hip Injection DATE: January 16, 2019. INDICATION: Female, 73 years old. Chronic hip pain. PHYSICIAN: Jim Watters M.D. MEDICATIONS: 12 mg of betamethasone and 3 cc of 1% lidocaine. 2% lidocaine administered subcutaneously for local anesthesia. ACCESS SITE: Left hip. NEEDLE: 22-gauge spinal needle. FLUOROSCOPY TIME (if supplied): (0:45) minutes/seconds FINDINGS: The risks, benefits, and alternatives to the procedure were explained to the patient. The specific risks of bleeding, infection, and neurovascular injury were detailed and accepted. Witnessed informed consent was obtained. A 22-gauge spinal needle was positioned under radiographic fluoroscopic localization. Approximately 2 cc of Isovue-300 instilled for localization purposes. Medication was then injected. The patient tolerated the procedure well without any immediate complications. RAD/Inj/Asp Emre Jt Should/Hip/Knee IMPRESSION: 1. Successful fluoroscopic guided hip injection. Electronically Signed: Jim Watters, at 10:30 EDT , Service support ,
== END ==
PROVIDERS: Family Provider Family Medicine; PCP Family Medicine; Referring Provider Orthopaedic Surgery; Visit Provider Orthopaedic Surgery
DX: M16.12 Unilateral primary osteoarthritis, left hip (principal)
CPT/HCPCS: 20610; 77002; Q9967; J0702

== ENCOUNTER 2019-02-07 11:18 | Outpatient (RCR) | payer MEDICARE, OTHER, SELFPAY ==
[2019-01-15 12:24] VITALS: BMI 52.7
[2019-01-20 15:44] LABS: International Normalized Ratio 1.3; Prothrombin Time (Protime)PT. 15.5 SECONDS (11.7-14.9)
[2019-01-23 11:45] LABS: International Normalized Ratio 1.6; Prothrombin Time (Protime)PT. 18.5 SECONDS (11.7-14.9)
[2019-01-30 11:16] LABS: International Normalized Ratio 1.8; Prothrombin Time (Protime)PT. 21.1 SECONDS (11.7-14.9)
[2019-02-07 12:15] LABS: International Normalized Ratio 2.3; Prothrombin Time (Protime)PT. 25.5 SECONDS (11.7-14.9)
== END 2019-02-07 12:18 | disposition home or self-care (01) ==
LOC: LAB 11:18
PROVIDERS: Family Provider Family Medicine; PCP Family Medicine; Referring Provider Internal Medicine Cardiovascular Disease; Visit Provider Internal Medicine Cardiovascular Disease
DX: I48.0 Paroxysmal atrial fibrillation (principal)
CPT/HCPCS: 36415; 85610

== ENCOUNTER → 2019-02-27 14:57 | Outpatient (CLI) | payer MEDICARE, OTHER, SELFPAY ==
[2019-02-15 09:45] VITALS: BMI 52.4
--- NOTE | 2019-02-27 | CYSPIN_PTH ---
PATIENT: ELIGIO ALANIS LOC: [place] U#:[id number] AGE/SX: 80/F ROOM: RE02/27/[address]: MARIA GUADALUPE Justin : 1945 BED: DIS: SPEC #: [id number] RECD: 02/28/19 08:56 STATUS: ERASMO LUCÍA #: [id number] DANNI: 02/27/19 00:[address]: Roslyn Garcia NP DEPT: CYTOLOGY RECD BY: Levi Lisa ENTERED: 02/28/19 08:56 SP TYPE: CYSPIN FL OTHR DR: Dr. Jose Miguel Chairez MD Tissues: Urine Procedures: Pap Stain (control) Special Stain Group II Cytospin Fluid HEADER OPERATION: Not noted PRE-OP DIAGNOSIS: Hematuria TISSUE SUBMITTED: Urine for cytology DIAGNOSIS CYTOLOGY Urine for cytology (cytospin): Negative for malignant cells. See cytology study and comment. SJ:dereje 03/03/19 COMMENT Please make reference to previous specimen (C19-21) urine for cytology with diagnosis of rare atypical urothelial cells present. Clinical correlation and appropriate follow up are necessary. CYTOLOGY STUDY Slides are reviewed. The specimen consists of benign squamous cells and red blood cells. CYTOLOGY GROSS Received is 35 ml of clear yellow fluid labeled with the patient's name and and designated per the requisition as urine. Submitted for cytology preparation. 02/28/19 TC:5 CPT: 12390
[2019-02-27 15:13] LABS: Bacteria 0 SEEN /hpf (None Seen); Cytology, Body Fluid / CSF SEE PATHOLOGY REPORT; Mucous, Urine 0 SEEN /hpf (<or=2+); Red Blood Cells-Urine 0 SEEN /hpf (0-5); White Blood Cells 0 SEEN /hpf (0-5)
[2019-02-27 15:18] LABS: Color, Urine Yellow (Yellow); Glucose, Dipstick Normal (Normal); Ketone-Dipstick Negative (Negative); Leukocyte Esterase-Dipstick Negative /ul (Negative); Nitrite-Dipstick Negative (Negative); Occult Blood-Urine 50 /ul (Negative); Protein-Dipstick Negative (Negative); Urine Bilirubin Dipstick Negative (Negative); Urine Clarity Clear (Clear); Urine Urobilinogen Normal (Normal)
[2019-02-27 15:24] LABS: Squamous Epithelial Cells - UA 0-5 SEEN /hpf (5-10)
== END ==
PROVIDERS: Family Provider Family Medicine; PCP Family Medicine; Referring Provider Nurse Practitioner Adult Health; Visit Provider Nurse Practitioner Adult Health
DX: R31.9 Hematuria, unspecified (principal)
CPT/HCPCS: 81001; 88108; 88313

== ENCOUNTER 2019-03-10 11:15 | Outpatient (RCR) | payer MEDICARE, OTHER, SELFPAY ==
[2019-02-15 09:45] VITALS: BMI 52.4
[2019-02-21 12:20] LABS: International Normalized Ratio 2.6; Prothrombin Time (Protime)PT. 27.5 SECONDS (11.7-14.9)
[2019-03-06 17:06] LABS: Prothrombin Time (Protime)PT. 31.1 SECONDS (11.7-14.9)
[2019-03-10 11:45] LABS: International Normalized Ratio 1.2; Prothrombin Time (Protime)PT. 14.8 SECONDS (11.7-14.9)
== END 2019-03-16 12:00 | disposition home or self-care (01) ==
LOC: LAB 11:15
PROVIDERS: Family Provider Family Medicine; PCP Family Medicine; Referring Provider Internal Medicine Cardiovascular Disease; Visit Provider Internal Medicine Cardiovascular Disease
DX: I48.0 Paroxysmal atrial fibrillation (principal); R31.9 Hematuria, unspecified
CPT/HCPCS: 36415; 85610; 87086

== ENCOUNTER 2019-04-14 15:05 | Outpatient (RCR) | payer MEDICARE, OTHER, SELFPAY ==
[2019-02-15 09:45] VITALS: BMI 52.4
[2019-03-17 17:20] LABS: International Normalized Ratio 1.5; Prothrombin Time (Protime)PT. 18.1 SECONDS (11.7-14.9)
[2019-03-24 15:10] LABS: International Normalized Ratio 1.8; Prothrombin Time (Protime)PT. 20.8 SECONDS (11.7-14.9)
[2019-03-31 13:49] LABS: International Normalized Ratio 1.9; Prothrombin Time (Protime)PT. 21.4 SECONDS (11.7-14.9)
[2019-04-14 16:03] LABS: International Normalized Ratio 1.6; Prothrombin Time (Protime)PT. 18.7 SECONDS (11.7-14.9)
== END 2019-04-16 16:00 | disposition home or self-care (01) ==
LOC: LAB 15:05
PROVIDERS: Family Provider Family Medicine; PCP Family Medicine; Referring Provider Internal Medicine Cardiovascular Disease; Visit Provider Internal Medicine Cardiovascular Disease
DX: I48.0 Paroxysmal atrial fibrillation (principal)
CPT/HCPCS: 36415; 85610

== ENCOUNTER 2019-05-12 12:50 | Outpatient (RCR) | payer MEDICARE, OTHER, SELFPAY ==
[2019-03-25 16:29] VITALS: BMI 52.4
[2019-04-28 16:24] LABS: International Normalized Ratio 2.8; Prothrombin Time (Protime)PT. 29.6 SECONDS (11.7-14.9)
[2019-05-12 13:43] LABS: International Normalized Ratio 2.9; Prothrombin Time (Protime)PT. 30.1 SECONDS (11.7-14.9)
== END 2019-05-12 14:00 | disposition home or self-care (01) ==
LOC: LAB 12:50
PROVIDERS: Family Provider Family Medicine; PCP Family Medicine; Referring Provider Internal Medicine Cardiovascular Disease; Visit Provider Internal Medicine Cardiovascular Disease
DX: I48.0 Paroxysmal atrial fibrillation (principal)
CPT/HCPCS: 36415; 85610

== ENCOUNTER 2019-06-02 11:07 | Outpatient (RCR) | payer MEDICARE, OTHER, SELFPAY ==
[2019-03-25 16:29] VITALS: BMI 52.4
[2019-06-02 11:45] LABS: International Normalized Ratio 2.5; Prothrombin Time (Protime)PT. 27.4 SECONDS (11.7-14.9)
== END 2019-06-02 12:00 | disposition home or self-care (01) ==
LOC: LAB 11:07
PROVIDERS: Family Provider Family Medicine; PCP Family Medicine; Referring Provider Internal Medicine Cardiovascular Disease; Visit Provider Internal Medicine Cardiovascular Disease
DX: I48.0 Paroxysmal atrial fibrillation (principal)
CPT/HCPCS: 36415; 85610

== ENCOUNTER → 2019-06-30 17:50 | Outpatient (CLI) | payer MEDICARE, OTHER, SELFPAY ==
[2019-03-25 16:29] VITALS: BMI 52.4
--- NOTE | 2019-06-30 10:00 | CYSPIN_PTH ---
PATIENT: ELIGIO ALANIS LOC: [place] U#:[id number] AGE/SX: 80/F ROOM: RE06/30/[address]: MARIA GUADALUPE uJstin : 1945 BED: DIS: SPEC #: [id number] RECD: 06/30/19 17:36 STATUS: ERASMO LUCÍA #: [id number] DANNI: 06/30/19 10:[address]: Roslyn Garcia NP DEPT: CYTOLOGY RECD BY: Prashant Seo ENTERED: 07/01/19 09:41 SP TYPE: CYSPIN FL OTHR DR: Dr. Jose Miguel Chairez MD Tissues: Urine Procedures: Pap Stain (control) Special Stain Group II Cytospin Fluid HEADER OPERATION: Not noted PRE-OP DIAGNOSIS: Gross hematuria TISSUE SUBMITTED: Urine for cytology DIAGNOSIS CYTOLOGY Urine for cytology (cytospin): Negative for malignant cells. See comment. JIL:dereje 07/02/19 COMMENT The specimen predominantly consists of benign squamous cells. Please make reference to previous specimen (C19-74) urine for cytology with diagnosis of rare atypical urothelial cells present and (C19-240) urine for cytology with diagnosis of negative for malignant cells. CYTOLOGY STUDY Slides are reviewed. CYTOLOGY GROSS Received is 30 ml of gold clear fluid labeled with the patient's name and and designated per the requisition as urine. Submitted for cytology preparation. / dereje 07/01/19 TC:4 CPT: 20570
[2019-06-30 17:53] LABS: Cytology, Body Fluid / CSF SEE PATHOLOGY REPORT
== END ==
PROVIDERS: Family Provider Family Medicine; PCP Family Medicine; Referring Provider Nurse Practitioner Adult Health; Visit Provider Nurse Practitioner Adult Health
DX: R31.0 Gross hematuria (principal); I48.0 Paroxysmal atrial fibrillation
CPT/HCPCS: 36415; 85610; 88108; 88313

== ENCOUNTER 2019-07-11 12:21 | Outpatient (RCR) | payer MEDICARE, OTHER, SELFPAY ==
[2019-03-25 16:29] VITALS: BMI 52.4
[2019-06-30 11:16] LABS: International Normalized Ratio 2.6; Prothrombin Time (Protime)PT. 27.7 SECONDS (11.7-14.9)
[2019-07-11 14:04] LABS: Prothrombin Time (Protime)PT. 22.4 SECONDS (11.7-14.9)
== END 2019-07-11 18:00 | disposition home or self-care (01) ==
LOC: LAB 12:21
PROVIDERS: Family Provider Family Medicine; PCP Family Medicine; Referring Provider Internal Medicine Cardiovascular Disease; Visit Provider Internal Medicine Cardiovascular Disease
DX: I48.0 Paroxysmal atrial fibrillation (principal)
CPT/HCPCS: 36415; 85610

== ENCOUNTER 2019-07-25 12:26 | Outpatient (RCR) | payer MEDICARE, OTHER, SELFPAY ==
[2019-07-03 10:55] VITALS: BMI 51.7
[2019-07-25 15:40] LABS: International Normalized Ratio 2.4; Prothrombin Time (Protime)PT. 26.5 SECONDS (11.7-14.9)
== END 2019-07-25 18:00 | disposition home or self-care (01) ==
LOC: LAB 12:26
PROVIDERS: Family Provider Family Medicine; PCP Family Medicine; Referring Provider Internal Medicine Cardiovascular Disease; Visit Provider Internal Medicine Cardiovascular Disease
DX: I48.0 Paroxysmal atrial fibrillation (principal)
CPT/HCPCS: 36415; 85610

== ENCOUNTER 2019-08-17 01:47 | Emergency (ER) | payer MEDICARE, OTHER, SELFPAY ==
[2019-07-03 10:55] VITALS: BMI 51.7
[2019-08-17 01:48] VITALS: BP 144/125; PULSE 91; RESP 16; TEMP 36.4; O2SAT 99; BMI 51.0
--- NOTE | 2019-08-17 01:59 | ED.VIS.URI ---
History of Present Illness Chief Complaint: Nosebleed Informant: Patient Onset: Today Context: Sudden Onset - spontaneous; no trauma/injury Timing: Intermittent Quality: oozing Location: left side Current Severity: Moderate Maximum Severity: Moderate Worsened by: - - nothing Relieved by: - - holding pressure Associated Symptoms: Negative for: Headache, Sinus Pressure, Nausea, Vomiting, Shortness of Breath, Chest Pain, Hemoptysis Narrative: Patient is on warfarin for atrial fibrillation and having spontaneous nosebleeds off and on throughout the day, worse tonight in the last 1 to 2 hours. Left side every time. Most of the blood is coming out the front, she is swallowing a couple of clots but very little blood in general is being swallowed. No vomiting. No lightheadedness or systemic symptoms. No recent illnesses. 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 (5) JUSTINA on CPAP Status: Chronic (6) On home oxygen therapy Status: Chronic Comment: Continuous 2-4LNC (7) Paroxysmal atrial fibrillation Status: Chronic (8) Pulmonary hypertension Status: Chronic (9) Pure hypercholesterolemia Status: Chronic (10) Right bundle branch block (RBBB) Status: Chronic Past Medical History - Allergies and Home Meds Allergies/Adverse Reactions: Allergies DANIEL Inhibitors Allergy (Verified 08/17/19 02:04) Hives ampicillin Allergy (Verified 08/17/19 02:04) Hives atorvastatin [From Lipitor] Allergy (Verified 08/17/19 02:04) Other ACHING chlorophyllin [From Panafil] Allergy (Verified 08/17/19 02:04) Other oxycodone [From Percocet] Allergy (Verified 08/17/19 02:04) Upset Stomach papain [From Panafil] Allergy (Verified 08/17/19 02:04) Other propoxyphene [From Darvocet-N] Allergy (Verified 08/17/19 02:04) Upset Stomach urea [From Panafil] Allergy (Verified 08/17/19 02:04) Other spironolactone Adverse Reaction (Intermediate, Verified 08/17/19 02:04) blood in urine Primary Care Physician: Jose Miguel Chairez MD [Primary Care Provider] - Smoking Status: Never smoker Drugs: None Review of Systems General: Denies: Chills, Fever, Sweats Eyes: Denies: Visual changes - bilaterally, Diplopia ENT: Reports: - - left nosebleed. Denies: Rhinorrhea, Sore throat Cardiovascular: Denies: Chest pain, Palpitations Respiratory: Denies: Dyspnea, Cough, Dyspnea on exertion Gastrointestinal: Denies: Abdominal pain, Nausea, Vomiting, Diarrhea, Melena, Hematochezia Genitourinary: Denies: Dysuria, Hematuria, Frequency Musculoskeletal: Denies: Back pain, Extremity Pain Skin: Denies: Rash, Wounds Neurological: Denies: Headache, Weakness, Numbness Physical Exam Vital Signs/Narrative: Vital Signs Temp Pulse Resp BP Pulse Ox 08/17/19 01:48 97.6 F L 91 16 144/125 H 99 Inital Vital Signs reviewed: Yes General: Well nourished, Well developed, Obese, - - NAD Head: Normocephalic, Atraumatic Eyes: Perrl, EOMI Ears: Normal external canal, TM's clear Nose: Normal Inspection, - - blood in left naris, mildly active Mouth/Throat: Normal Inspection, No Posterior Erythema, - - POP blood, not actively bleeding Neck: Supple, Nontender Cardiovascular: No murmurs, Irregular. Negative for: Tachycardia Respiratory: No distress, CTA bilaterally, Chest nontender Back: Nontender, Normal Inspection Extremities: Nontender, No edema Skin: Normal color, No rash Neurological: Alert, Oriented x3, Cranial nerves II-XII grossly intact, Normal Strength, Normal Sensation Psychological: Normal affect Diagnostic/Tx/Re-eval Laboratory Tests 08/17/19 Range/Units 02:03 PT 34.0 H (11.7-14.9) SECONDS INR 3.3 - Medical Decision Making Patient was stable with a clamp on her anterior nose. After getting oxymetazoline and lidocaine jelly at the bedside, I soaked the pledget in them, had the patient remove the clamp, and expressed all of the blood and clots from her nose, until it was clear and she was blowing air through. I then sprayed oxymetazoline into her nose followed by placing the pledget in the clamp. I rechecked her 20 minutes later, bleeding was well-controlled although there was a very slight ooze from one point at the nasal septum. I attempted to cauterize this with silver nitrate stick, it did significantly lessen the bleeding, I then placed a small piece of gauze soaked in oxymetazoline against the area and observed her for another half hour. On reevaluation the bleeding is completely stopped. There is no perforation of the septum. She has a scab and area on the right side without any evidence of recent bleeding, she states that is chronic and has always been like that, and like I had previously documented I see no evidence of perforation there. I think this was a reasonable course to avoid a nasal packing, but I did discuss that if she rebleeds she may need a packing and to return to the ER. She is comfortable with that plan. Also advises holding a dose of her Coumadin. Procedures Procedure(s): Epistaxis/nasal cautery silver nitrate. Gently cauterized area of left anterior septum with silver nitrate. See above for results, good hemostasis eventually obtained. No perforation. Tolerated well. No complications. ED Disposition - Plan for ED Patient: Disposition: Home or Assisted Living Diagnosis: Acute anterior epistaxis, Warfarin-induced coagulopathy Instructions: Nosebleed Referrals: Jose Miguel Chairez MD [Primary Care Provider] - Jose Miguel Ruano MD [STAFF PHYSICIAN] - As Needed (or ER for recurrent bleeding/problems) Additional Instructions: Hold/do not take your next dose of warfarin. Your INR was 3.3 today.
[2019-08-17 02:21] LABS: International Normalized Ratio 3.3
[2019-08-17] MEDS: Oxymetazoline 0.05% 1 SPRAY SPRAY.BTL 2 SPRAY NASAL (02:31)
[2019-08-17] MEDS: Silver Nitrate (BKC) 1 EACH TOPICAL (02:32)
[2019-08-17] MEDS: Lidocaine 2% Jelly 1 APPLIC Tube TOPICAL (02:32)
[2019-08-17 03:48] VITALS: BP 142/99; PULSE 95; RESP 17; O2SAT 95
== END 2019-08-17 07:00 | disposition home or self-care (01) ==
PROVIDERS: Emergency Provider Emergency Medicine; Family Provider Family Medicine; PCP Family Medicine
DX: R04.0 Epistaxis (principal); D68.32 Hemorrhagic disorder due to extrinsic circulating anticoagulants; T45.515A Adverse effect of anticoagulants, initial encounter; Y92.9 Unspecified place or not applicable; I48.0 Paroxysmal atrial fibrillation; I44.4 Left anterior fascicular block; I27.20 Pulmonary hypertension, unspecified; I10 Essential (primary) hypertension; E78.00 Pure hypercholesterolemia, unspecified; I45.10 Unspecified right bundle-branch block; G47.33 Obstructive sleep apnea (adult) (pediatric); K21.9 Gastro-esophageal reflux disease without esophagitis; E66.9 Obesity, unspecified; Z99.81 Dependence on supplemental oxygen; Z79.01 Long term (current) use of anticoagulants; Z79.899 Other long term (current) drug therapy; Z88.5 Allergy status to narcotic agent
CPT/HCPCS: 30901; 36415; 85610; 99284

== ENCOUNTER 2019-09-08 11:31 | Outpatient (RCR) | payer MEDICARE, OTHER, SELFPAY ==
[2019-08-26 16:38] LABS: International Normalized Ratio 2.3; Prothrombin Time (Protime)PT. 25.3 SECONDS (11.7-14.9)
[2019-09-08 12:35] LABS: International Normalized Ratio 2.6
== END 2019-09-08 18:00 | disposition home or self-care (01) ==
LOC: LAB 11:31
PROVIDERS: Family Provider Family Medicine; PCP Family Medicine; Referring Provider Internal Medicine Cardiovascular Disease; Visit Provider Internal Medicine Cardiovascular Disease
DX: I48.0 Paroxysmal atrial fibrillation (principal)
CPT/HCPCS: 36415; 85610

== ENCOUNTER → 2019-09-25 10:17 | Outpatient (CLI) | payer MEDICARE, OTHER, SELFPAY ==
--- NOTE | 2019-09-25 10:19 | BI_ITS ---
MAMMOGRAPHY - BILATERAL SCREENING REASON FOR EXAM: Female, 74 years old. Routine annual screening examination. PERTINENT HISTORY: Non-contributory. Remote right stereotactic breast biopsies. TECHNIQUE: Digital bilateral breast elisha (3D mammographic acquisition) in the CC and MLO projections. 2-D mediolateral oblique (MLO) and craniocaudad (CC) views of both breasts were obtained. CAD: Full Field Digital Mammography with Computer Added Detection was performed. COMPARISON: Comparison is made with prior study dated September 20, 2018 and August 24, 2017. FINDINGS: Breast Composition: There are scattered areas of fibroglandular density. There are no dominant masses or suspicious calcifications. A tissue clip marker is once again seen in the deep retroareolar region of the right breast. No other significant abnormalities are identified. There has been no significant change since the prior study. BI/SCREEN MAMM (CAD) W/ELISHA BILAT IMPRESSION: Stable bilateral screening mammogram. Yearly follow-up mammogram recommended. (A) ASSESSMENT CATEGORY: BIRADS Category 2: Benign. A letter regarding these results will be sent to the patient by the facility within 30 days. Approximately 10% of breast cancers are not detected by mammography. A normal mammogram should not delay biopsy of a clinically suspicious abnormality. [id number] Electronically Signed: Jim Watters, at 11:44 EST , Service support ,
== END ==
PROVIDERS: Family Provider Family Medicine; PCP Family Medicine; Referring Provider Family Medicine; Visit Provider Family Medicine
DX: Z12.31 Encounter for screening mammogram for malignant neoplasm of breast (principal)
CPT/HCPCS: 77063; 77067

== ENCOUNTER 2019-10-13 11:56 | Outpatient (RCR) | payer MEDICARE, OTHER, SELFPAY ==
[2019-09-22 13:57] LABS: International Normalized Ratio 2.2; Prothrombin Time (Protime)PT. 24.2 SECONDS (11.7-14.9)
[2019-10-13 12:59] LABS: International Normalized Ratio 2.2; Prothrombin Time (Protime)PT. 24.8 SECONDS (11.7-14.9)
== END 2019-10-13 18:00 | disposition home or self-care (01) ==
LOC: LAB 11:56
PROVIDERS: Family Provider Family Medicine; PCP Family Medicine; Referring Provider Internal Medicine Cardiovascular Disease; Visit Provider Internal Medicine Cardiovascular Disease
DX: I48.0 Paroxysmal atrial fibrillation (principal)
CPT/HCPCS: 36415; 85610

== ENCOUNTER 2019-11-10 11:44 | Outpatient (RCR) | payer MEDICARE, OTHER, SELFPAY ==
[2019-11-10 13:59] LABS: International Normalized Ratio 2.6; Prothrombin Time (Protime)PT. 28.1 SECONDS (11.7-14.9)
== END 2019-11-10 18:00 | disposition home or self-care (01) ==
LOC: LAB 11:44
PROVIDERS: Family Provider Family Medicine; PCP Family Medicine; Referring Provider Internal Medicine Cardiovascular Disease; Visit Provider Internal Medicine Cardiovascular Disease
DX: I48.0 Paroxysmal atrial fibrillation (principal); Z79.01 Long term (current) use of anticoagulants
CPT/HCPCS: 36415; 85610

== ENCOUNTER 2019-11-28 11:22 | Outpatient (RCR) | payer MEDICARE, OTHER, SELFPAY ==
[2019-11-24 11:00] VITALS: BMI 54.5
[2019-11-28 12:00] LABS: International Normalized Ratio 2.4; Prothrombin Time (Protime)PT. 26.5 SECONDS (11.7-14.9)
== END 2019-11-28 18:00 | disposition home or self-care (01) ==
LOC: LAB 11:22
PROVIDERS: Family Provider Family Medicine; PCP Family Medicine; Referring Provider Internal Medicine Cardiovascular Disease; Visit Provider Internal Medicine Cardiovascular Disease
DX: I48.0 Paroxysmal atrial fibrillation (principal); Z79.01 Long term (current) use of anticoagulants
CPT/HCPCS: 36415; 85610

== ENCOUNTER 2019-12-19 10:25 | Outpatient (RCR) | payer MEDICARE, OTHER, SELFPAY ==
[2019-11-24 11:00] VITALS: BMI 54.5
[2019-12-19 11:17] LABS: International Normalized Ratio 2.5; Prothrombin Time (Protime)PT. 26.7 SECONDS (11.7-14.9)
== END 2020-01-15 18:00 | disposition home or self-care (01) ==
LOC: LAB 10:25
PROVIDERS: Family Provider Family Medicine; PCP Family Medicine; Referring Provider Internal Medicine Cardiovascular Disease; Visit Provider Internal Medicine Cardiovascular Disease
DX: I48.0 Paroxysmal atrial fibrillation (principal); Z79.01 Long term (current) use of anticoagulants
CPT/HCPCS: 36415; 85610

== ENCOUNTER 2020-01-16 11:45 | Outpatient (RCR) | payer MEDICARE, OTHER, SELFPAY ==
[2019-11-24 11:00] VITALS: BMI 54.5
[2020-01-16 12:41] LABS: Prothrombin Time (Protime)PT. 30.4 SECONDS (11.7-14.9)
== END 2020-01-16 18:00 | disposition home or self-care (01) ==
LOC: LAB 11:45
PROVIDERS: Family Provider Family Medicine; PCP Family Medicine; Referring Provider Internal Medicine Cardiovascular Disease; Visit Provider Internal Medicine Cardiovascular Disease
DX: I48.0 Paroxysmal atrial fibrillation (principal); Z79.01 Long term (current) use of anticoagulants
CPT/HCPCS: 36415; 85610

== ENCOUNTER 2020-02-20 13:06 | Outpatient (RCR) | payer MEDICARE, OTHER, SELFPAY ==
[2019-11-24 11:00] VITALS: BMI 54.5
[2020-02-20 14:08] LABS: International Normalized Ratio 2.4; Prothrombin Time (Protime)PT. 25.9 SECONDS (11.7-14.9)
== END 2020-02-20 18:00 | disposition home or self-care (01) ==
LOC: LAB 13:06
PROVIDERS: Family Provider Family Medicine; PCP Family Medicine; Referring Provider Internal Medicine Cardiovascular Disease; Visit Provider Internal Medicine Cardiovascular Disease
DX: I48.0 Paroxysmal atrial fibrillation (principal); Z79.01 Long term (current) use of anticoagulants
CPT/HCPCS: 36415; 85610

== ENCOUNTER 2020-04-09 11:42 | Outpatient (RCR) | payer MEDICARE, OTHER, SELFPAY ==
[2019-11-24 11:00] VITALS: BMI 54.5
[2020-03-26 13:28] LABS: International Normalized Ratio 3.1; Prothrombin Time (Protime)PT. 31.7 SECONDS (11.7-14.9)
[2020-04-09 12:39] LABS: International Normalized Ratio 2.6; Prothrombin Time (Protime)PT. 27.6 SECONDS (11.7-14.9)
== END 2020-04-09 18:00 | disposition home or self-care (01) ==
LOC: LAB 11:42
PROVIDERS: Family Provider Family Medicine; PCP Family Medicine; Referring Provider Internal Medicine Cardiovascular Disease; Visit Provider Internal Medicine Cardiovascular Disease
DX: I48.0 Paroxysmal atrial fibrillation (principal); Z79.01 Long term (current) use of anticoagulants
CPT/HCPCS: 36415; 85610

== ENCOUNTER 2020-05-14 12:23 | Outpatient (RCR) | payer MEDICARE, OTHER, SELFPAY ==
[2019-11-24 11:00] VITALS: BMI 54.5
[2020-05-07 13:42] LABS: International Normalized Ratio 3.4; Prothrombin Time (Protime)PT. 34.2 SECONDS (11.7-14.9)
== END 2020-05-14 18:00 | disposition home or self-care (01) ==
LOC: LAB 12:23
PROVIDERS: Family Provider Family Medicine; PCP Family Medicine; Referring Provider Internal Medicine Cardiovascular Disease; Visit Provider Internal Medicine Cardiovascular Disease
DX: I48.0 Paroxysmal atrial fibrillation (principal); Z79.01 Long term (current) use of anticoagulants
CPT/HCPCS: 36415; 85610

== ENCOUNTER 2020-06-11 11:23 | Outpatient (RCR) | payer MEDICARE, OTHER, SELFPAY ==
[2019-11-24 11:00] VITALS: BMI 54.5
[2020-05-29 11:37] LABS: International Normalized Ratio 3.4; Prothrombin Time (Protime)PT. 34.2 SECONDS (11.7-14.9)
[2020-06-11 12:20] LABS: International Normalized Ratio 2.6; Prothrombin Time (Protime)PT. 27.5 SECONDS (11.7-14.9)
== END 2020-06-11 18:00 | disposition home or self-care (01) ==
LOC: LAB 11:23
PROVIDERS: Family Provider Family Medicine; PCP Family Medicine; Referring Provider Internal Medicine Cardiovascular Disease; Visit Provider Internal Medicine Cardiovascular Disease
DX: I48.0 Paroxysmal atrial fibrillation (principal); Z79.01 Long term (current) use of anticoagulants
CPT/HCPCS: 36415; 85610

== ENCOUNTER → 2020-06-14 20:38 | Outpatient (CLI) | payer MEDICARE, OTHER, SELFPAY ==
[2019-11-24 11:00] VITALS: BMI 54.5
[2020-05-31 11:18] VITALS: BMI 48.1
== END ==
PROVIDERS: PCP Family Medicine
DX: G47.33 Obstructive sleep apnea (adult) (pediatric) (principal)
CPT/HCPCS: 95811

== ENCOUNTER 2020-07-16 12:41 | Outpatient (RCR) | payer MEDICARE, OTHER, SELFPAY ==
[2020-05-31 11:18] VITALS: BMI 48.1
[2020-06-25 09:57] LABS: International Normalized Ratio 3.1; Prothrombin Time (Protime)PT. 31.4 SECONDS (11.7-14.9)
[2020-07-02 15:20] LABS: International Normalized Ratio 3.4; Prothrombin Time (Protime)PT. 33.8 SECONDS (11.7-14.9)
[2020-07-16 13:54] LABS: Prothrombin Time (Protime)PT. 30.7 SECONDS (11.7-14.9)
== END 2020-07-16 18:00 | disposition home or self-care (01) ==
LOC: LAB 12:41
PROVIDERS: Family Provider Family Medicine; PCP Family Medicine; Referring Provider Internal Medicine Cardiovascular Disease; Visit Provider Internal Medicine Cardiovascular Disease
DX: I48.0 Paroxysmal atrial fibrillation (principal); Z79.01 Long term (current) use of anticoagulants
CPT/HCPCS: 36415; 85610

== ENCOUNTER 2020-07-30 09:59 | Outpatient (RCR) | payer MEDICARE, OTHER, SELFPAY ==
[2020-05-31 11:18] VITALS: BMI 48.1
[2020-07-30 10:31] LABS: International Normalized Ratio 2.3; Prothrombin Time (Protime)PT. 25.2 SECONDS (11.7-14.9)
== END 2020-07-30 18:00 | disposition home or self-care (01) ==
LOC: LAB 09:59
PROVIDERS: Family Provider Family Medicine; PCP Family Medicine; Referring Provider Internal Medicine Cardiovascular Disease; Visit Provider Internal Medicine Cardiovascular Disease
DX: I48.0 Paroxysmal atrial fibrillation (principal); Z79.01 Long term (current) use of anticoagulants
CPT/HCPCS: 36415; 85610

== ENCOUNTER 2020-08-20 13:21 | Outpatient (RCR) | payer MEDICARE, OTHER, SELFPAY ==
[2020-05-31 11:18] VITALS: BMI 48.1
[2020-08-20 14:26] LABS: International Normalized Ratio 2.5; Prothrombin Time (Protime)PT. 26.3 SECONDS (11.7-14.9)
== END 2020-08-20 18:00 | disposition home or self-care (01) ==
LOC: LAB 13:21
PROVIDERS: Family Provider Family Medicine; PCP Family Medicine; Referring Provider Internal Medicine Cardiovascular Disease; Visit Provider Internal Medicine Cardiovascular Disease
DX: I48.0 Paroxysmal atrial fibrillation (principal); Z79.01 Long term (current) use of anticoagulants
CPT/HCPCS: 36415; 85610

== ENCOUNTER 2020-10-15 13:48 | Outpatient (RCR) | payer MEDICARE, OTHER, SELFPAY ==
[2020-05-31 11:18] VITALS: BMI 48.1
[2020-09-20 13:34] LABS: International Normalized Ratio 2.7
[2020-10-15 15:46] LABS: International Normalized Ratio 2.1; Prothrombin Time (Protime)PT. 22.9 SECONDS (11.7-14.9)
== END 2020-10-15 18:00 | disposition home or self-care (01) ==
LOC: LAB 13:48
PROVIDERS: Family Provider Family Medicine; PCP Family Medicine; Referring Provider Internal Medicine Cardiovascular Disease; Visit Provider Internal Medicine Cardiovascular Disease
DX: I48.0 Paroxysmal atrial fibrillation (principal); Z79.01 Long term (current) use of anticoagulants
CPT/HCPCS: 36415; 85610

== ENCOUNTER 2020-11-29 12:58 | Outpatient (RCR) | payer MEDICARE, OTHER, SELFPAY ==
[2020-05-31 11:18] VITALS: BMI 48.1
[2020-11-15 14:39] LABS: International Normalized Ratio 1.9; Prothrombin Time (Protime)PT. 21.5 SECONDS (11.7-14.9)
[2020-11-29 13:46] LABS: International Normalized Ratio 2.7; Prothrombin Time (Protime)PT. 28.1 SECONDS (11.7-14.9)
== END 2020-11-29 18:00 | disposition home or self-care (01) ==
LOC: LAB 12:58
PROVIDERS: Family Provider Family Medicine; PCP Family Medicine; Referring Provider Internal Medicine Cardiovascular Disease; Visit Provider Internal Medicine Cardiovascular Disease
DX: I48.0 Paroxysmal atrial fibrillation (principal); Z79.01 Long term (current) use of anticoagulants
CPT/HCPCS: 36415; 85610

== ENCOUNTER 2021-01-10 11:38 | Outpatient (RCR) | payer MEDICARE, OTHER, SELFPAY ==
[2020-12-13 14:21] VITALS: BMI 47.7
[2020-12-20 13:41] LABS: International Normalized Ratio 2.3; Prothrombin Time (Protime)PT. 24.2 SECONDS (11.7-14.9)
[2021-01-10 12:50] LABS: International Normalized Ratio 2.2; Prothrombin Time (Protime)PT. 23.5 SECONDS (11.7-14.9)
== END 2021-01-10 18:00 | disposition home or self-care (01) ==
LOC: LAB 11:38
PROVIDERS: Family Provider Family Medicine; PCP Family Medicine; Referring Provider Internal Medicine Cardiovascular Disease; Visit Provider Internal Medicine Cardiovascular Disease
DX: I48.0 Paroxysmal atrial fibrillation (principal); Z79.01 Long term (current) use of anticoagulants
CPT/HCPCS: 36415; 85610

== ENCOUNTER 2021-02-07 12:38 | Outpatient (RCR) | payer MEDICARE, OTHER, SELFPAY ==
[2020-12-13 14:21] VITALS: BMI 47.7
[2021-02-07 13:47] LABS: International Normalized Ratio 1.5; Prothrombin Time (Protime)PT. 17.5 SECONDS (11.7-14.9)
== END 2021-02-07 18:00 | disposition home or self-care (01) ==
LOC: LAB 12:38
PROVIDERS: Family Provider Family Medicine; PCP Family Medicine; Referring Provider Internal Medicine Cardiovascular Disease; Visit Provider Internal Medicine Cardiovascular Disease
DX: I48.0 Paroxysmal atrial fibrillation (principal); Z79.01 Long term (current) use of anticoagulants
CPT/HCPCS: 36415; 85610

== ENCOUNTER 2021-03-14 12:05 | Outpatient (RCR) | payer MEDICARE, OTHER, SELFPAY ==
[2020-12-13 14:21] VITALS: BMI 47.7
[2021-02-15 12:52] LABS: International Normalized Ratio 2.2; Prothrombin Time (Protime)PT. 23.9 SECONDS (11.7-14.9)
[2021-03-14 12:49] LABS: International Normalized Ratio 2.1
== END 2021-03-14 18:00 | disposition home or self-care (01) ==
LOC: LAB 12:05
PROVIDERS: Family Provider Family Medicine; PCP Family Medicine; Referring Provider Internal Medicine Cardiovascular Disease; Visit Provider Internal Medicine Cardiovascular Disease
DX: I48.0 Paroxysmal atrial fibrillation (principal); Z79.01 Long term (current) use of anticoagulants
CPT/HCPCS: 36415; 85610

== ENCOUNTER 2021-04-11 13:02 | Outpatient (RCR) | payer MEDICARE, OTHER, SELFPAY ==
[2020-12-13 14:21] VITALS: BMI 47.7
[2021-04-11 13:44] LABS: International Normalized Ratio 2.4; Prothrombin Time (Protime)PT. 25.5 SECONDS (11.7-14.9)
== END 2021-04-11 18:00 | disposition home or self-care (01) ==
LOC: LAB 13:02
PROVIDERS: Family Provider Family Medicine; PCP Family Medicine; Referring Provider Internal Medicine Cardiovascular Disease; Visit Provider Internal Medicine Cardiovascular Disease
DX: I48.0 Paroxysmal atrial fibrillation (principal); Z79.01 Long term (current) use of anticoagulants
CPT/HCPCS: 36415; 85610

== ENCOUNTER 2021-05-09 11:56 | Outpatient (RCR) | payer MEDICARE, OTHER, SELFPAY ==
[2020-12-13 14:21] VITALS: BMI 47.7
[2021-05-09 12:44] LABS: Prothrombin Time (Protime)PT. 21.7 SECONDS (11.7-14.9)
== END 2021-05-09 18:00 | disposition home or self-care (01) ==
LOC: LAB 11:56
PROVIDERS: Family Provider Family Medicine; PCP Family Medicine; Referring Provider Internal Medicine Cardiovascular Disease; Visit Provider Internal Medicine Cardiovascular Disease
DX: I48.0 Paroxysmal atrial fibrillation (principal); Z79.01 Long term (current) use of anticoagulants
CPT/HCPCS: 36415; 85610

== ENCOUNTER 2021-06-10 13:34 | Outpatient (RCR) | payer MEDICARE, OTHER, SELFPAY ==
[2021-05-18 00:21] VITALS: BMI 47.7
[2021-06-10 14:35] LABS: International Normalized Ratio 1.4; Prothrombin Time (Protime)PT. 16.6 SECONDS (11.7-14.9)
== END 2021-06-10 18:00 | disposition home or self-care (01) ==
LOC: LAB 13:34
PROVIDERS: Family Provider Family Medicine; PCP Family Medicine; Referring Provider Internal Medicine Cardiovascular Disease; Visit Provider Internal Medicine Cardiovascular Disease
DX: I48.0 Paroxysmal atrial fibrillation (principal); Z79.01 Long term (current) use of anticoagulants
CPT/HCPCS: 36415; 85610

== ENCOUNTER 2021-07-04 12:11 | Outpatient (RCR) | payer MEDICARE, OTHER, SELFPAY ==
[2021-06-16 22:02] VITALS: BMI 47.7
[2021-06-21 12:43] LABS: International Normalized Ratio 1.7; Prothrombin Time (Protime)PT. 18.8 SECONDS (11.7-14.9)
[2021-07-04 13:30] LABS: International Normalized Ratio 1.5; Prothrombin Time (Protime)PT. 17.1 SECONDS (11.7-14.9)
== END 2021-07-17 18:00 | disposition home or self-care (01) ==
LOC: LAB 12:11
PROVIDERS: Family Provider Family Medicine; PCP Family Medicine; Referring Provider Internal Medicine Cardiovascular Disease; Visit Provider Internal Medicine Cardiovascular Disease
DX: I48.0 Paroxysmal atrial fibrillation (principal); Z79.01 Long term (current) use of anticoagulants
CPT/HCPCS: 36415; 85610

== ENCOUNTER 2021-08-09 11:35 | Outpatient (RCR) | payer MEDICARE, OTHER, SELFPAY ==
[2021-07-17 20:18] VITALS: BMI 47.7
[2021-07-18 12:40] LABS: International Normalized Ratio 1.7; Prothrombin Time (Protime)PT. 18.9 SECONDS (11.7-14.9)
[2021-07-29 12:51] LABS: International Normalized Ratio 1.6; Prothrombin Time (Protime)PT. 18.6 SECONDS (11.7-14.9)
[2021-08-09 12:54] LABS: International Normalized Ratio 2.2; Prothrombin Time (Protime)PT. 23.6 SECONDS (11.7-14.9)
== END 2021-08-16 18:00 | disposition home or self-care (01) ==
LOC: LAB 11:35
PROVIDERS: Family Provider Family Medicine; PCP Family Medicine; Referring Provider Internal Medicine Cardiovascular Disease; Visit Provider Internal Medicine Cardiovascular Disease
DX: I48.0 Paroxysmal atrial fibrillation (principal); Z79.01 Long term (current) use of anticoagulants
CPT/HCPCS: 36415; 85610

== ENCOUNTER 2021-09-13 12:16 | Outpatient (RCR) | payer MEDICARE, OTHER, SELFPAY ==
[2021-08-17 03:36] VITALS: BMI 47.7
[2021-08-29 13:39] LABS: International Normalized Ratio 1.9; Prothrombin Time (Protime)PT. 20.9 SECONDS (11.7-14.9)
[2021-09-13 13:13] LABS: International Normalized Ratio 2.2; Prothrombin Time (Protime)PT. 23.9 SECONDS (11.7-14.9)
== END 2021-09-17 18:00 | disposition home or self-care (01) ==
LOC: LAB 12:16
PROVIDERS: Family Provider Family Medicine; PCP Family Medicine; Referring Provider Internal Medicine Cardiovascular Disease; Visit Provider Internal Medicine Cardiovascular Disease
DX: I48.0 Paroxysmal atrial fibrillation (principal); Z79.01 Long term (current) use of anticoagulants
CPT/HCPCS: 36415; 85610

== ENCOUNTER 2021-10-04 12:39 | Outpatient (RCR) | payer MEDICARE, OTHER, SELFPAY ==
[2021-09-18 04:51] VITALS: BMI 47.7
[2021-10-04 13:50] LABS: International Normalized Ratio 2.1; Prothrombin Time (Protime)PT. 22.9 SECONDS (11.7-14.9)
== END 2021-10-17 18:00 | disposition home or self-care (01) ==
LOC: LAB 12:39
PROVIDERS: Family Provider Family Medicine; PCP Family Medicine; Referring Provider Internal Medicine Cardiovascular Disease; Visit Provider Internal Medicine Cardiovascular Disease
DX: I48.0 Paroxysmal atrial fibrillation (principal); Z79.01 Long term (current) use of anticoagulants
CPT/HCPCS: 36415; 85610

== ENCOUNTER 2021-10-31 11:53 | Emergency (ER) | payer MEDICARE, OTHER, SELFPAY ==
[2021-10-31 11:54] VITALS: BP 139/94; PULSE 85; RESP 18; TEMP 36.6; O2SAT 100; BMI 45.7
--- NOTE | 2021-10-31 13:22 | RAD_ITS ---
STUDY: X-RAY - RIGHT KNEE REASON FOR EXAM: Female, 76 years old. Pain following a fall. TECHNIQUE: 3 view(s) of the knee. COMPARISON: None. FINDINGS: The patient is status post total knee replacement with the transfixation across the joint. No fracture is seen. Diffuse soft tissue swelling. RAD/Knee 1 or 2 Views IMPRESSION: Status post total knee replacement. Diffuse soft tissue swelling. Electronically Signed: Jim Watters MD at 15:09 EST ,
--- NOTE | 2021-10-31 13:22 | RAD_ITS ---
STUDY: X-RAY - PELVIS REASON FOR EXAM: Female, 76 years old. Pain following a fall. TECHNIQUE: One view of the pelvis was obtained. COMPARISON: None. FINDINGS: There is a non-specific bowel gas pattern. Normal visualized soft tissue structures. Normal bilateral iliac wings, sacroiliac joints and visualized sacrum. Normal visualized bilateral superior and inferior pubic rami. There is narrowing with sclerosis of the pubic symphysis. Normal ischial tuberosities. The patient is status post right total hip replacement. There is good alignment. Marked degree of joint space narrowing of the left hip joint with subchondral cysts in the femoral head and subchondral sclerosis of the acetabular rim. Avascular necrosis should be ruled out. RAD/Pelvis 1 or 2 Views IMPRESSION: Moderate degree of osteophytosis involving the left hip joint. Status post right hip replacement. No acute fracture or dislocation is seen. Electronically Signed: Jim Watters MD at 15:10 EST ,
--- NOTE | 2021-10-31 13:22 | CT_ITS ---
STUDY: CT BRAIN WITHOUT CONTRAST REASON FOR EXAM: Female, 76 years old. Head trauma RADIATION DOSAGE (If Supplied By Facility): CTDIvol = ( 47.06 ) mGy, DLP = ( 802.10 ) mGycm TECHNIQUE: Transaxial CT imaging of the brain was performed without administration of intravenous contrast material. Individualized dose optimization techniques were used for this CT. COMPARISON: No relevant priors. FINDINGS: Normal soft tissue structures. Normal calvarium. There is mild cerebral atrophy with widening of the extra-axial spaces and ventricular dilatation. There are areas of decreased attenuation within the white matter tracts of the supratentorial brain, consistent with microvascular disease changes. There are small punctate calcifications of the basal ganglia which are seen in the aging brain as a normal variant. Normal brainstem. Normal cerebellum. There is no intracranial hemorrhage. There are no findings of an acute ischemic infarction. Atherosclerotic calcification of the cavernous portions of the internal carotid arteries bilaterally. There is a 1.4 cm polyp or retention cyst along the posterior inferior aspect of the left maxillary sinus. CT/Brain/Head without Contrast IMPRESSION: Chronic involutional changes of the brain. Electronically Signed: Jim Watters MD at 14:54 EST ,
--- NOTE | 2021-10-31 13:24 | ED.VIS.FALL ---
HPI HPI - Fall History of Present Illness Chief Complaint: Fall Informant: patient Occured/Mechanism Occurred: Weeks Mechanism/Context: Yes same level fall Usually ambulates: Cane Pain/Injury Pain Location: lower extremity Quality of Pain: Sharp Current Severity: Gone Maximum Severity: Moderate Associated Symptoms Associated Symptoms: Positive for Inability to ambulate; Negative for Parasthesias, Weakness, Loss of function, Loss of consciousness and Amnesia Narrative Narrative: 76-year-old female history of hypertension, A. fib on Coumadin. She she fell on October 22. Paramedics came to her home at that time they want to bring her in the hospital she did not want to be admitted. Or come to the emergency department. States she has not been seen for this until today. Normally she uses a cane to ambulate. She was getting in her shower she thinks her cane slipped she went down injuring her right hip and right upper leg. She also hit her right head. But she had no LOC. Denies any head or neck pain. She denies any recent illness. She has had right hip and knee replacements in the past. Prior similar symptoms: No Recent Illness/Hospitalization: No PFSH PFS Medical History (Updated 10/31/21 @ 15:[address] 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 On home oxygen therapy JUSTINA on CPAP Paroxysmal atrial fibrillation Poliomyelitis Pulmonary hypertension Pure hypercholesterolemia Right bundle branch block (RBBB) Home Medications cetirizine 10 mg PO DAILY 11/10/16 [History Last Taken 11/14/16 07:30] cholecalciferol (vitamin D3) 2,000 unit PO BID 11/10/16 [History Last Taken Unknown] fluticasone propionate 1 spray NASAL DAILY PRN 11/10/16 [History Last Taken Unknown] doxycycline hyclate 100 mg tablet 100 mg PO DAILY 10/03/18 [History Last Taken Unknown] simvastatin 10 mg tablet 10 mg PO QHS tab 10/03/18 [History Last Taken Unknown] acetaminophen 650 mg tablet,extended release 650 mg PO Q12H 11/24/19 [History Last Taken Unknown] lansoprazole 15 mg capsule,delayed release 15 mg PO DAILY 11/24/19 [History Last Taken Unknown] hydrochlorothiazide 25 mg tablet See Rx Instructions .ROUTE .COMPLEX #90 tablet 10/29/20 [Rx Last Taken Unknown] warfarin 4 mg PO SUFRSA 10/31/21 [History Last Taken Unknown] warfarin 6 mg PO MOTUWETH 10/31/21 [History Last Taken Unknown] Allergy/AdvReac Type Severity Reaction Status Date / Time DANIEL Inhibitors Allergy Hives Verified 10/31/21 11:57 ampicillin Allergy Hives Verified 10/31/21 11:57 atorvastatin [From Lipitor] Allergy Other Verified 10/31/21 11:57 chlorophyllin [From Panafil] Allergy Other Verified 10/31/21 11:57 oxycodone [From Percocet] Allergy Upset Verified 10/31/21 11:57 Stomach papain [From Panafil] Allergy Other Verified 10/31/21 11:57 propoxyphene Allergy Upset Verified 10/31/21 11:57 [From Darvocet-N] Stomach urea [From Panafil] Allergy Other Verified 10/31/21 11:57 spironolactone AdvReac Intermediate blood in Verified 10/31/21 11:57 urine Family History Mother CVA (cerebral vascular accident) Diabetes Cancer Bladder Grandmother Heart disease Surgical History History of bilateral cataract extraction History of tonsillectomy and adenoidectomy History of total knee replacement History of total right hip replacement Social History Smoking Status: Never smoker alcohol intake: never substance use type: does not use caffeine: Yes Type: coffee Number of servings: 3 ROS ROS ED ROS Narrative Denies recent illness. Review of Systems ROS Unobtainable: Denies due to encephalopathy Constitutional Constitutional ED: Denies chills or fever(s) Eyes Eyes: Denies change in vision ENT ENT ED: Denies ear pain Cardiovascular Cardiovascular: Denies chest pain Respiratory/Chest Respiratory/Chest: Denies cough or dyspnea Gastrointestinal Gastrointestinal: Denies abdominal pain, diarrhea, nausea or vomiting Genitourinary Genitourinary ED: Denies dysuria Musculoskeletal Musculoskeletal: Denies myalgias Integumentary Denies rash Neurologic Neurologic: Denies headache(s) Psychiatric Psychiatric: Denies depression Endocrine Endocrinology: Denies polyuria Hematologic/Lymphatic Hematologic/Lymphatic: Denies easy bruising Allergic/Immunologic Allergic/Immunologic ED: Denies urticaria EXAM Physical Exam Narrative Exam Narrative: 76-year-old female no acute distress. Vital signs are stable she is afebrile. H EENT exam dry reactive light. She has bruising on her right forehead. Scalp nontender. C-spine nontender. Trachea midline. Lungs clear to auscultation. Heart regular rhythm rate of 85. Chest were nontender. Abdomen obese nontender. Pelvic girdle intact. Bruising to her right hip femur and knee area. Prior knee replacement surgical scar well-healed. She has tenderness along her right hip femur and knee. Dorsi plantar flexion intact. The upper extremities and the left lower extremity are nontender numbers. Neurologically she is awake alert with no focal motor deficits. Const Vital Signs: 10/31/21 11:54 10/31/21 13:26 10/31/21 15:00 Temperature 98 F Temperature Source Temporal Pulse Rate 85 68 Respiratory Rate 18 19 H Respiratory Effort Normal Non-Labored Blood Pressure 139/94 H 119/78 Blood Pressure Mean 109 91 Pulse Ox 100 98 Oxygen Delivery Method Nasal Cannula Room Air Oxygen Flow Rate (L/min) 4 Positive well nourished, well developed and obese; Negative for cachectic, contractures or unkempt General Appearance ED: well developed and NAD; Negative for unkempt, cachectic or contractures Nutritional Appearance: obese; Negative for cachectic HEENT Reports normocephalic HEENT Narrative: Right forehead bruise resolving. trauma; Negative for atraumatic Eyes PERRL and EOMs intact bilaterally General Eye ED: Negative for pale conjunctiva or scleral icterus Neck full ROM, no lymphadenopathy and supple General: Negative for tenderness Chest Wall inspection of chest normal and palpation of chest normal Resp normal respiratory effort, no retractions and clear to auscultation bilaterally Auscultation: Negative for rales, rhonchi or wheezes Cardio regular rate, regular rhythm, S1 normal heart sound, S2 normal heart sound and no murmurs GI non-tender, non-distended and no masses Inspection: Negative for abdominal distention Auscultation: normoactive bowel sounds Palpation: soft; Negative for guarding or rebound tenderness present Back/Spine no CVA tenderness Extremity normal to inspection and full ROM Extremity Narrative: Except tenderness to right hip, femur and knee. Bruising. Decreased range of motion due to pain. Dorsi plantar flexion intact bilaterally. Upper extremities are nontender she has a bruise to her right tricep and bicep area. Normal range of motion no deformity to both upper extremities and the left lower extremity Neuro oriented x3, moves all extremities and no focal motor deficits Mode Coma Scale: document GCS findings Spontaneous Obeys Commands Oriented 15 Sensorium / Orientation: alert, oriented to person, oriented to place and oriented to time; Negative for orientation impaired, confused, lethargic or stuporous Psych mental status grossly normal and thought process normal Appearance: Negative for unkempt Attitude: No agitated Mood & Affect: Negative for depressed or tearful Skin Skin Narrative: Bruising to her right hip and upper leg and knee. Bruise to her right bicep and tricep. Lesions: no lesions and No lesion noted Rashes: no rashes and No rashes noted Trauma: Negative for abrasion MDM MDM MDM Narrative Medical decision making narrative: 76-year-old female fall about 9 days ago. Unable to bear weight on her right leg. X-rays and lab work are being obtained. She does not anything for pain unless she is upright. Repeat exam she is doing well. She is able to ambulate and actually walked in from triage. Just uncomfortable. Lab Data Attestation: I reviewed the patient's lab results. Lab results narrative: CBC shows a white count of 5. Hemoglobin 9.9 hematocrit 29.8. No old labs available in the hospital computer for comparison. I suspect this is chronic. Patient is on Coumadin her INR is 2.1. Electrolytes show a gap of 2. BUN is 16 creatinine 0.4. Glucose 101. Labs: Laboratory Results - last 24 hr 10/31/21 10/31/21 10/31/21 13:31 13:31 13:31 WBC 5.4 RBC 3.15 L Hgb 9.9 L Hct 29.8 L MCV 94.6 MCH 31.4 MCHC 33.2 RDW Std Deviation 42.5 RDW Coeff of Bonny 12.3 Plt Count 159 MPV 9.2 Immature Gran % (Auto) 0.400 Neut % (Auto) 73.4 H Lymph % (Auto) 15.6 L Ashley % (Auto) 9.7 Eos % (Auto) 0.7 Baso % (Auto) 0.2 Absolute Neuts (auto) 3.9 Absolute Lymphs (auto) 0.84 Nucleated RBC % 0 PT 22.5 H INR 2.1 Sodium 136 Potassium 3.7 Chloride 96 L Carbon Dioxide 38.0 H Anion Gap 2 L BUN 16 Creatinine 0.48 L Estim Creat Clear Calc 41.72 Est GFR (MDRD) Af Amer 163 Est GFR (MDRD) Non-Af 134 BUN/Creatinine Ratio 33.7 H Glucose 101 Calcium 8.7 Radiography Diagnostic Testing: Clinical Impression(s) from Imaging Studies Brain CT 10/31/21 13:22 IMPRESSION: Chronic involutional changes of the brain. Electronically Signed: Jim Wattesr MD at 14:54 EST , Knee X-Ray 10/31/21 13:22 IMPRESSION: Status post total knee replacement. Diffuse soft tissue swelling. Electronically Signed: Jim Watters MD at 15:09 EST , Pelvis X-Ray 10/31/21 13:22 IMPRESSION: Moderate degree of osteophytosis involving the left hip joint. Status post right hip replacement. No acute fracture or dislocation is seen. Electronically Signed: Jim Watters MD at 15:10 EST , Femur X-Ray 10/31/21 14:40 IMPRESSION: Status post right hip replacement and right total knee replacement. There is good alignment. Diffuse soft tissue swelling. Electronically Signed: Jim Watters MD at 15:12 EST , Right hip and pelvis x-ray shows no acute process. Right hip prosthesis. No fracture or dislocation. Pelvis is unremarkable. 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 Right femur x-ray two views interpreted by myself shows no acute abnormality. Both the right hip prosthesis and a right knee prosthesis. No acute fracture. Right knee x-ray four views. No fracture. No dislocation. Interpreted by myself. Prior knee prosthesis. Discharge Plan Triage Chief Complaint: Fall ED Provider: Hay Clark Dx/Rx/DC Orders Clinical Impression: Fall, Chronic anticoagulation, Contusion of hip, Contusion of knee, Anemia Instructions: ED Contusion, Lower Extremity Prescriptions: No Action doxycycline hyclate 100 mg tablet 100 mg PO DAILY RF: 0 lansoprazole 15 mg capsule,delayed release(DR/EC) 15 mg PO DAILY RF: 0 acetaminophen [Tylenol Arthritis Pain] 650 mg tablet extended release 650 mg PO Q12H RF: 0 fluticasone propionate 1 SPRAY spray,suspension 1 spray NASAL DAILY PRN (Reason: Allergies) RF: 0 cholecalciferol (vitamin D3) 2,000 UNIT capsule 2,000 unit PO BID RF: 0 cetirizine 10 MG capsule 10 mg PO DAILY RF: 0 simvastatin 10 mg tablet 10 mg PO QHS RF: 0 warfarin 6 mg Tablet 6 mg PO MOTUWETH RF: 0 warfarin 4 mg tablet 4 mg PO SUFRSA RF: 0 hydrochlorothiazide 25 mg tablet See Rx Instructions .ROUTE .COMPLEX Qty: 90 RF: 3 Primary Care Provider: Jose Miguel Chairez Referrals: Jose Miguel Chairez MD [Primary Care Provider] - 3-5 Days Activity Restrictions/Additional Instructions: Ice to your hip and knee. Tylenol for pain. Continue current medications. Your x-rays today did not show any broken bones or dislocations. Pain secondary to bruising and swelling. This should progressively improve if it is not it needs reimaged. I spoke with Dr. Chairez. Follow-up with his office in the next week or so. They want to reevaluate you make sure you are doing well. They also may want to recheck your blood counts in the next several weeks. Disposition Disposition: Home, Self Care
[2021-10-31 13:41] LABS: Absolute Lymphocyte Count 0.84 X10^3/uL (0.83-4.51); Absolute Neutrophil Count 3.9 X10^3/uL (2.0-7.7); Basophil# 0.01 X10^3/uL; Basophil% 0.2 % (0-1); Eosinophil# 0.04 X10^3/uL; Eosinophils% 0.7 % (0-5); Hematocrit 29.8 % (37-47); Hemoglobin 9.9 g/dL (12.0-15.0); Lymphocyte # 0.84 X10^3/ul (0.83-4.51); Lymphocyte % 15.6 % (19-41); Mean Corp Hgb Conc 33.2 g/dL (32-36); Mean Corpuscular Hgb 31.4 pg (27.0-32.0); Mean Corpuscular Volume 94.6 fL (81-99); Mean Platelet Vol. 9.2 fl (6.2-12.0); Monocyte# 0.52 X10^3/uL; Monocyte% 9.7 % (0-10); NRBC Flagged by Analyzer 0 % (0-5); Neutrophil # 3.94 X10^3/uL (2.7-7.7); Neutrophil % 73.4 % (47-70); Platelet Count 159 K/mm3 (150-450); RBC Distribution Width CV 12.3 % (11.6-14.6); RBC Distribution Width SD 42.5 fl (35.1-43.9); Red Blood Count 3.15 M/mm3 (4.2-5.4); White Blood Count 5.4 K/mm3 (4.4-11.0)
[2021-10-31 13:50] LABS: International Normalized Ratio 2.1; Prothrombin Time (Protime)PT. 22.5 SECONDS (11.7-14.9)
[2021-10-31 13:55] LABS: Anion Gap 2 (5-15); BUN 16 mg/dL (7-18); BUN/Creat Ratio 33.7 RATIO (10-20); Calcium,Total 8.7 mg/dL (8.5-10.1); Chloride 96 mmol/L (98-107); Creatinine, Serum 0.48 mg/dL (0.55-1.02); EST Glomerular Filtration Rate 134 mL/min (>60); Est Glom Filt Rate - Afr Amer 163 mL/min (>60); Estimated Creatinine Clearance 41.72 ml/min; Glucose 101 mg/dL (74-106); Potassium 3.7 mmol/L (3.5-5.1); Sodium Level 136 mmol/L (136-145)
--- NOTE | 2021-10-31 14:40 | RAD_ITS ---
STUDY: X-RAY - RIGHT FEMUR REASON FOR STUDY: Female, 76 years old. Fall TECHNIQUE: 4 view(s) of the femur. COMPARISON: None. FINDINGS: The patient is status post right hip replacement as well as right total knee replacement. Diffuse soft tissue swelling. RAD/Femur Min 2 Views IMPRESSION: Status post right hip replacement and right total knee replacement. There is good alignment. Diffuse soft tissue swelling. Electronically Signed: Jim Watters MD at 15:12 EST ,
[2021-10-31 15:00] VITALS: BP 119/78; PULSE 68; RESP 19; O2SAT 98
[2021-10-31 16:32] VITALS: BP 134/86; PULSE 72; RESP 14; TEMP 36.9; O2SAT 96
== END 2021-10-31 16:45 | disposition home or self-care (01) ==
PROVIDERS: Emergency Provider Emergency Medicine; PCP Family Medicine; Visit Provider Emergency Medicine
DX: S80.01XA Contusion of right knee, initial encounter (principal); I48.0 Paroxysmal atrial fibrillation; S70.01XA Contusion of right hip, initial encounter; W18.30XA Fall on same level, unspecified, initial encounter; Y92.008 Other place in unspecified non-institutional (private) residence as the place of occurrence of the external cause; Y93.E1 Activity, personal bathing and showering; Y99.8 Other external cause status; I45.2 Bifascicular block; I10 Essential (primary) hypertension; E78.00 Pure hypercholesterolemia, unspecified; D64.9 Anemia, unspecified; G47.33 Obstructive sleep apnea (adult) (pediatric); Z99.81 Dependence on supplemental oxygen; Z79.01 Long term (current) use of anticoagulants; Z79.899 Other long term (current) drug therapy
CPT/HCPCS: 70450; 72170; 73552; 73560; 80048; 85025; 85610; 99284

== ENCOUNTER 2022-04-14 11:59 | Outpatient (RCR) | payer MEDICARE, OTHER, SELFPAY ==
[2022-04-14 12:31] LABS: Cholesterol 174 mg/dL (200); High Density Lipoprotein 73 mg/dL; Triglycerides 72 mg/dL; Very Low Density Lipoprotein 14 mg/dL (5-40)
== END 2022-04-15 22:00 | disposition home or self-care (01) ==
LOC: HHLAB 11:59
PROVIDERS: PCP Family Medicine; Visit Provider Family Medicine
DX: I87.2 Venous insufficiency (chronic) (peripheral) (principal); Z96.659 Presence of unspecified artificial knee joint; L97.819 Non-pressure chronic ulcer of other part of right lower leg with unspecified severity; I10 Essential (primary) hypertension
CPT/HCPCS: 80061

== ENCOUNTER 2022-06-23 20:49 | Observation (INO) | payer MEDICARE, OTHER, SELFPAY ==
[2022-06-23 20:51] VITALS: BP 137/44; PULSE 82; RESP 18; TEMP 36.6; O2SAT 100; BMI 46.7
--- NOTE | 2022-06-23 22:08 | CT_ITS ---
STUDY: CT HEAD W/O CONTRAST INJECTION REASON FOR EXAM: Female, 77 years old. Trauma FALL X 2 TODAY,WEAKNESS HX:AFIB,HTN,PRIOR CATARACT SURGERY RADIATION DOSAGE (If Supplied By Facility): CTDIvol = ( 44.99 ) mGy, DLP = ( 796.11 ) mGycm TECHNIQUE: Transaxial CT imaging of the brain was performed without administration of intravenous contrast material. Individualized dose optimization techniques were used for this CT. COMPARISON: CT head 10/31/2021. FINDINGS: BRAIN: No acute bleed. No edema. Parker-white matter differentiation is maintained. VENTRICLES AND SULCI: The ventricles are not dilated. The sulci are prominent. EXTRA-AXIAL: No hemorrhage, fluid collection, or mass. CALVARIUM / SKULL BASE: Unremarkable. FACE/SINUSES: Mucosal thickening with polyp or retention cyst in left maxillary sinus. SOFT TISSUES: Unremarkable. CT/Brain/Head without Contrast IMPRESSION: No acute abnormality. Electronically Signed: Jane Soto MD at 22:46 EDT ,
--- NOTE | 2022-06-23 22:11 | EX.ED.DYSGE1 ---
HPI History of Present Illness Chief Complaint: Fall Informant: patient Narrative Narrative: Patient Heather with generalized weakness that really started sometime yesterday. She states her legs just do not seem to have the strength to hold her. It is bilateral and not unilateral. Nothing localizes. She had a fall back in October but has not had this problem before. She has chronic lymphedema but has not acutely worsened. No change in medications. She denies any head injury although she has fallen twice today and is on Coumadin for history of chronic A. fib. She is also on 4 L of oxygen for pulmonary hypertension. She has not run out of oxygen. She has no specific complaint. She has no fever. Her complaint is generalized weakness and inability to get up and walk. She does live alone and independently [facility] Medical History (Updated 06/24/22 @ 01:[address] Ace Edmondson MD) Bleeding ulcer Essential hypertension GERD (gastroesophageal reflux disease) Left anterior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 intermediate current use of anticoagulant On home oxygen therapy JUSTINA on CPAP Paroxysmal atrial fibrillation Poliomyelitis Pulmonary hypertension Pure hypercholesterolemia Right bundle branch block (RBBB) Home Medications cetirizine 10 mg capsule 10 mg PO DAILY 11/10/16 [History Last Taken 11/14/16 07:30] cholecalciferol (vitamin D3) 50 mcg (2,000 unit) capsule 2,000 unit PO BID 11/10/16 [History Last Taken Unknown] fluticasone propionate 50 mcg/actuation nasal spray,suspension 1 spray NASAL DAILY PRN Allergies 11/10/16 [History Last Taken Unknown] doxycycline hyclate 100 mg tablet 100 mg PO DAILY 10/03/18 [History Last Taken Unknown] simvastatin 10 mg tablet 10 mg PO QHS 10/03/18 [History Last Taken Unknown] acetaminophen 650 mg tablet,extended release (Tylenol Arthritis Pain) 650 mg PO Q12H 11/24/19 [History Last Taken Unknown] hydrochlorothiazide 25 mg tablet See Rx Instructions .Route .COMPLEX #90 tabs 10/29/20 [Rx Last Taken Unknown] warfarin 6 mg tablet 6 mg PO DAILY 10/31/21 [History Last Taken Unknown] warfarin 4 mg tablet 4 mg PO SUFRSA #90 tabs 12/12/21 [Rx Last Taken Unknown] lansoprazole 15 mg capsule,delayed release 30 mg PO DAILY 06/14/22 [History Last Taken Unknown] Allergy/AdvReac Type Severity Reaction Status Date / Time DANIEL Inhibitors Allergy Hives Verified 06/14/22 14:52 ampicillin Allergy Hives Verified 06/14/22 14:52 atorvastatin [From Lipitor] Allergy Other Verified 06/14/22 14:52 chlorophyllin [From Panafil] Allergy Other Verified 06/14/22 14:52 oxycodone [From Percocet] Allergy Upset Verified 06/14/22 14:52 Stomach papain [From Panafil] Allergy Other Verified 06/14/22 14:52 propoxyphene Allergy Upset Verified 06/14/22 14:52 [From Darvocet-N] Stomach urea [From Panafil] Allergy Other Verified 06/14/22 14:52 spironolactone AdvReac Intermediate blood in Verified 06/14/22 14:52 urine Family History Mother CVA (cerebral vascular accident) Diabetes Cancer Bladder Grandmother Heart disease Surgical History History of bilateral cataract extraction History of tonsillectomy and adenoidectomy History of total knee replacement History of total right hip replacement Social History Smoking Status: Never smoker alcohol intake: never substance use type: does not use caffeine: Yes Type: coffee Number of servings: 3 ROS ROS ED Constitutional Constitutional ED: Reports chills and fever(s); Denies sweats Eyes Eyes: Denies change in vision ENT ENT ED: Denies rhinorrhea or sore throat Cardiovascular Cardiovascular: Denies chest pain, palpitations or racing heartbeat Respiratory/Chest Respiratory/Chest: Denies cough or dyspnea Gastrointestinal Gastrointestinal: Denies abdominal pain, diarrhea, nausea or vomiting Genitourinary Genitourinary ED: Denies dysuria or hematuria Musculoskeletal Musculoskeletal: Denies arthralgias or myalgias Integumentary Denies rash Neurologic Neurologic: Reports other Details: Generalized weakness but nonfocal ; Denies headache(s) or paresthesias Endocrine Endocrinology: Denies polydipsia or polyuria Hematologic/Lymphatic Hematologic/Lymphatic: Denies easy bleeding or easy bruising Allergic/Immunologic Allergic/Immunologic ED: Denies urticaria EXAM Physical Exam Const Vital Signs: 06/23/22 20:51 06/23/22 21:00 06/23/22 23:33 Temperature 97.9 F Temperature Source Oral Pulse Rate 82 73 Respiratory Rate 18 14 Respiratory Effort Normal Blood Pressure 137/44 H 136/47 H Blood Pressure Mean 75 76 Pulse Ox 100 98 Oxygen Delivery Method Nasal Cannula Nasal Cannula Oxygen Flow Rate (L/min) 4 4 06/24/22 01:04 Temperature 97.8 F Temperature Source Oral Pulse Rate 74 Respiratory Rate 16 Respiratory Effort Blood Pressure 136/53 H Blood Pressure Mean 80 Pulse Ox 97 Oxygen Delivery Method Nasal Cannula Oxygen Flow Rate (L/min) 4 Positive well nourished and well developed General Appearance ED: well developed and NAD; Negative for pallor HEENT Reports moist mucous membranes Eyes EOMs intact bilaterally General Eye ED: Negative for pale conjunctiva or scleral icterus Neck no JVD Chest Wall inspection of chest normal and palpation of chest normal Resp normal respiratory effort and clear to auscultation bilaterally Cardio regular rate and regular rhythm Rate: other Other Details: She has a history of A. fib and her EKG shows A. fib but on the monitor when I listen to her she appears to be in sinus rhythm for a period of time. GI normal to inspection, nondistended, normoactive bowel sounds and non-tender Back/Spine no CVA tenderness Extremity Extremity Narrative: She has quite significant chronic lymphedema. She has some chronic skin changes at the lower extremities but no definitive really indication that this is cellulitic. Neuro oriented x3 Neuro Narrative: No focal deficit. Psych mental status grossly normal Skin General Skin Exam: Negative for pallor MDM MDM MDM Narrative Medical decision making narrative: Patient's blood work shows mild anemia but this is not enough to cause her symptoms. Rest of CBC is overall relatively normal. INR is nearly therapist pubic at 1.9. Electrolytes and liver function test are not showing any marked abnormalities. There is an increased BUN to creatinine ratio so there may be a component of dehydration but she does not have low blood pressure or tachycardia. Urine does not show significant signs of infection. Flu and COVID are negative. We attempted to walk the patient she is just too weak to get up and bear weight safely. We cannot send her home. We will talk with hospitalist regarding admission. Lab Data Attestation: I reviewed the patient's lab results. Labs: Laboratory Results - last 24 hr 06/23/22 06/23/22 06/23/22 22:15 22:15 22:15 WBC 5.4 RBC 3.98 L Hgb 11.9 L Hct 37.8 MCV 95.0 MCH 29.9 MCHC 31.5 L RDW Std Deviation 42.9 RDW Coeff of Bonny 12.3 Plt Count 136 L MPV 9.5 Immature Gran % (Auto) 0.200 Neut % (Auto) 79.3 H Lymph % (Auto) 10.1 L Desha % (Auto) 9.8 Eos % (Auto) 0.4 Baso % (Auto) 0.2 Absolute Neuts (auto) 4.3 Absolute Lymphs (auto) 0.55 L Nucleated RBC % 0 Differential Comment SEE COMMENT Platelet Estimate SLT DEC RBC Morphology N CHROM Anisocytosis RARE Macrocytosis RARE PT 21.0 H INR 1.9 Sodium 140 Potassium 3.6 Chloride 97 L Carbon Dioxide 38.0 H Anion Gap 5 BUN 25 H Creatinine 0.51 L Estim Creat Clear Calc 39.39 Est GFR (MDRD) Af Amer 151 Est GFR (MDRD) Non-Af 125 BUN/Creatinine Ratio 49.4 H Glucose 111 H Calcium 9.0 Total Bilirubin 0.40 AST 19 ALT 16 Alkaline Phosphatase 61 Troponin I High Sens 22 Total Protein 6.7 Albumin 3.0 L Globulin 3.7 Albumin/Globulin Ratio 0.8 L Urine Color Urine Clarity Urine pH Ur Specific [place] Urine Protein Urine Glucose (UA) Urine Ketones Urine Occult Blood Urine Nitrite Urine Bilirubin Urine Urobilinogen Ur Leukocyte Esterase Urine RBC Urine WBC Ur Squamous Epith Cells Amorphous Sediment Urine Bacteria Urine Mucus 06/23/22 23:15 WBC RBC Hgb Hct MCV MCH MCHC RDW Std Deviation RDW Coeff of Bonny Plt Count MPV Immature Gran % (Auto) Neut % (Auto) Lymph % (Auto) Desha % (Auto) Eos % (Auto) Baso % (Auto) Absolute Neuts (auto) Absolute Lymphs (auto) Nucleated RBC % Differential Comment Platelet Estimate RBC Morphology Anisocytosis Macrocytosis PT INR Sodium Potassium Chloride Carbon Dioxide Anion Gap BUN Creatinine Estim Creat Clear Calc Est GFR (MDRD) Af Amer Est GFR (MDRD) Non-Af BUN/Creatinine Ratio Glucose Calcium Total Bilirubin AST ALT Alkaline Phosphatase Troponin I High Sens Total Protein Albumin Globulin Albumin/Globulin Ratio Urine Color Yellow Urine Clarity Clear Urine pH 8.0 Ur Specific [place] 1.015 Urine Protein Negative Urine Glucose (UA) Normal Urine Ketones Negative Urine Occult Blood 10 H Urine Nitrite Negative Urine Bilirubin Negative Urine Urobilinogen Normal Ur Leukocyte Esterase Negative Urine RBC 0 SEEN Urine WBC 0-5 SEEN Ur Squamous Epith Cells 0-5 SEEN Amorphous Sediment 1+ Urine Bacteria 1+ Urine Mucus 0 SEEN Radiography Diagnostic Testing: Clinical Impression(s) from Imaging Studies Brain CT 06/23/22 22:08 IMPRESSION: No acute abnormality. Electronically Signed: Jane Soto MD at 22:46 EDT , Chest X-Ray 06/23/22 22:30 IMPRESSION: No evidence of active intrathoracic disease. Electronically Signed: Jane Soto MD at 22:51 EDT , CT scan of the head showed no acute process. Chest x-ray looked at by me and read by radiology shows no acute process. EKG Initial EKG: Comments: EKG done for generalized weakness and history of atrial fibrillation read by me shows A. fib with a rate of 79. There are occasional PVCs. Right bundle branch block pattern. QRS duration and QTc long. Discharge Plan Triage Chief Complaint: Fall ED Provider: Ace Edmondson Dx/Rx/DC Orders Clinical Impression: Dehydration, Generalized weakness, Inability to walk Primary Care Provider: Jose Miguel Chairez Disposition Disposition: Acute Care [facility]
--- NOTE | 2022-06-23 22:30 | RAD_ITS ---
STUDY: X-RAY CHEST REASON FOR EXAM: Female, 77 years old. SOB TECHNIQUE: AP portable. 10:41 PM. COMPARISON: CT abdomen pelvis 10/09/2018. FINDINGS: LUNGS: Mildly elevated right hemidiaphragm eventration unchanged compared to prior CT. No consolidation. Soft tissue fullness in the hilar regions likely prominent vasculature. No pneumothorax. MEDIASTINUM: Aorta is atherosclerotic. CARDIAC SILHOUETTE: Not enlarged. BONES AND SOFT TISSUES: No acute abnormalities. RAD/Chest 1 View (Portable) IMPRESSION: No evidence of active intrathoracic disease. Electronically Signed: Jane Soto MD at 22:51 EDT ,
[2022-06-23 22:35] LABS: Absolute Lymphocyte Count 0.55 X10^3/uL (0.83-4.51); Absolute Neutrophil Count 4.3 X10^3/uL (2.0-7.7); Basophil# 0.01 X10^3/uL; Basophil% 0.2 % (0-1); Eosinophil# 0.02 X10^3/uL; Eosinophils% 0.4 % (0-5); Hematocrit 37.8 % (37-47); Hemoglobin 11.9 g/dL (12.0-15.0); Lymphocyte # 0.55 X10^3/ul (0.83-4.51); Lymphocyte % 10.1 % (19-41); Mean Corp Hgb Conc 31.5 g/dL (32-36); Mean Corpuscular Hgb 29.9 pg (27.0-32.0); Mean Platelet Vol. 9.5 fl (6.2-12.0); Monocyte# 0.53 X10^3/uL; Monocyte% 9.8 % (0-10); NRBC Flagged by Analyzer 0 % (0-5); Neutrophil # 4.31 X10^3/uL (2.7-7.7); Neutrophil % 79.3 % (47-70); POSITIVE DIFFERENTIAL YES; Platelet Count 136 K/mm3 (150-450); RBC Distribution Width CV 12.3 % (11.6-14.6); RBC Distribution Width SD 42.9 fl (35.1-43.9); Red Blood Count 3.98 M/mm3 (4.2-5.4); White Blood Count 5.4 K/mm3 (4.4-11.0)
[2022-06-23 22:44] LABS: Differential Indicated SCAN CRITERIA MET
[2022-06-23 22:45] LABS: International Normalized Ratio 1.9
[2022-06-23 22:50] LABS: ALB/GLOB Ratio 0.8 RATIO (0.9-2.4); AST(SGOT) 19 U/L (15-37); Alanine Aminotransfer ALT/SGPT 16 U/L (13-56); Alkaline Phosphatase 61 U/L (45-117); Anion Gap 5 (5-15); BUN 25 mg/dL (7-18); BUN/Creat Ratio 49.4 RATIO (10-20); Chloride 97 mmol/L (98-107); Creatinine, Serum 0.51 mg/dL (0.55-1.02); EST Glomerular Filtration Rate 125 mL/min (>60); Est Glom Filt Rate - Afr Amer 151 mL/min (>60); Estimated Creatinine Clearance 39.39 ml/min; Globulin 3.7 g/dL (2.2-4.2); Glucose 111 mg/dL (74-106); Potassium 3.6 mmol/L (3.5-5.1); Protein, Total 6.7 g/dL (6.4-8.2); Sodium Level 140 mmol/L (136-145); Troponin-I HS 22 pg/mL (3.0-54.0)
[2022-06-23 22:58] LABS: Platelet Estimate SLT DEC (ADEQ); Red Cell Morphology N CHROM NORMAL (NORM C&C)
[2022-06-23 22:59] LABS: Anisocytosis RARE; Macrocytosis RARE
[2022-06-23 23:22] LABS: Mucous, Urine 0 SEEN /hpf (<or=2+); Red Blood Cells-Urine 0 SEEN /hpf (0-5)
[2022-06-23 23:28] LABS: Color, Urine Yellow (Yellow); Glucose, Dipstick Normal (Normal); Ketone-Dipstick Negative (Negative); Leukocyte Esterase-Dipstick Negative /ul (Negative); Nitrite-Dipstick Negative (Negative); Occult Blood-Urine 10 /ul (Negative); Protein-Dipstick Negative (Negative); Specific Gravity, Urine 1.015 (1.002-1.030); Urine Bilirubin Dipstick Negative (Negative); Urine Clarity Clear (Clear); Urine Urobilinogen Normal (Normal)
[2022-06-23 23:33] VITALS: BP 136/47; PULSE 73; RESP 14; O2SAT 98
[2022-06-23 23:54] LABS: Amorphous Sediment 1+; Bacteria 1+ /hpf (None Seen); Squamous Epithelial Cells - UA 0-5 SEEN /hpf (5-10); White Blood Cells 0-5 SEEN /hpf (0-5)
[2022-06-24] VITALS (8 sets, daily range): BP systolic 115–136; BP diastolic 48–62; PULSE 70–78; RESP 16–20; TEMP 36.4–37.3; O2SAT 4–100; BMI 44.4
--- NOTE | 2022-06-24 01:15 | PCM.HP.STD ---
HPI - General General Date of Admission: 06/24/22 Date of Service: 06/24/22 Chief Complaint: Bilateral leg weakness bilateral leg HPI Narrative ELIGIO ALANIS, is a 77 F with a significant history of lymphedema; atrial fibrillation; and pulmonary hypertension on 4 L baseline nasal cannula oxygen who gets around with a cane, walker and a wheelchair who presents to the emergency department with bilateral leg weakness that started 2 days before presentation. Her symptoms has been progressively worsening and on the day of presentation her knees buckled causing her to fall 2 times. Patient lives by herself and she is unable to take care of herself at this time . [facility] Medical History BiPAP (biphasic positive airway pressure) dependence Bleeding ulcer Essential hypertension GERD (gastroesophageal reflux disease) Left anterior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 intermediate current use of anticoagulant Non-smoker On home oxygen therapy JUSTINA on CPAP Paroxysmal atrial fibrillation Poliomyelitis Pulmonary hypertension Pure hypercholesterolemia Right bundle branch block (RBBB) Home Medications cetirizine 10 mg capsule 10 mg PO DAILY 11/10/16 [History Last Taken 11/14/16 07:30] cholecalciferol (vitamin D3) 50 mcg (2,000 unit) capsule 2,000 unit PO BID 11/10/16 [History Last Taken Unknown] fluticasone propionate 50 mcg/actuation nasal spray,suspension 1 spray NASAL DAILY PRN Allergies 11/10/16 [History Last Taken Unknown] doxycycline hyclate 100 mg tablet 100 mg PO DAILY 10/03/18 [History Last Taken Unknown] simvastatin 10 mg tablet 10 mg PO QHS 10/03/18 [History Last Taken Unknown] acetaminophen 650 mg tablet,extended release (Tylenol Arthritis Pain) 650 mg PO Q8H 11/24/19 [History Last Taken Unknown] lansoprazole 15 mg capsule,delayed release 30 mg PO QHS 06/14/22 [History Last Taken Unknown] hydrochlorothiazide 25 mg tablet 25 mg PO DAILY 06/24/22 [History Last Taken Unknown] warfarin 4 mg tablet 4 mg PO DAILY 06/24/22 [History Last Taken Unknown] Allergy/AdvReac Type Severity Reaction Status Date / Time DANIEL Inhibitors Allergy Hives Verified 06/14/22 14:52 ampicillin Allergy Hives Verified 06/14/22 14:52 atorvastatin [From Lipitor] Allergy Other Verified 06/14/22 14:52 chlorophyllin [From Panafil] Allergy Other Verified 06/14/22 14:52 oxycodone [From Percocet] Allergy Upset Verified 06/14/22 14:52 Stomach papain [From Panafil] Allergy Other Verified 06/14/22 14:52 propoxyphene Allergy Upset Verified 06/14/22 14:52 [From Darvocet-N] Stomach urea [From Panafil] Allergy Other Verified 06/14/22 14:52 spironolactone AdvReac Intermediate blood in Verified 06/14/22 14:52 urine Family History Mother CVA (cerebral vascular accident) Diabetes Cancer Bladder Grandmother Heart disease Surgical History History of bilateral cataract extraction History of tonsillectomy and adenoidectomy History of total knee replacement History of total right hip replacement Social History Smoking Status: Never smoker alcohol intake: never substance use type: does not use caffeine: Yes Type: coffee Number of servings: 3 ROS ROS Narrative Pertinent positives and pertinent negatives as noted in HPI. All other systems were reviewed and are negative Vital Signs Vital Signs Vital Signs: 06/23/22 20:51 06/23/22 21:00 06/23/22 23:33 Temperature 97.9 F Temperature Source Oral Pulse Rate 82 73 Respiratory Rate 18 14 Respiratory Effort Normal Blood Pressure 137/44 H 136/47 H Blood Pressure Mean 75 76 Pulse Ox 100 98 Oxygen Delivery Method Nasal Cannula Nasal Cannula Oxygen Flow Rate (L/min) 4 4 06/24/22 01:04 Temperature 97.8 F Temperature Source Oral Pulse Rate 74 Respiratory Rate 16 Respiratory Effort Blood Pressure 136/53 H Blood Pressure Mean 80 Pulse Ox 97 Oxygen Delivery Method Nasal Cannula Oxygen Flow Rate (L/min) 4 Weight Weight: 123.6 kg Body Mass Index (BMI) 46.7 Physical Exam Narrative Physical exam: General: Well-nourished, well-developed. Head: Normocephalic, atraumatic, no tenderness Eyes: Vision is grossly intact. EOMI ENT, no trauma, moist mucous membranes, no rhinorrhea Neck: Nontender, full range of motion. CVS: Regular rate and rhythm. S1-S2 present. No murmur, gallop or rub. Respiratory : clear to auscultation bilaterally, chest wall nontender, no wheezing Abdomen: Soft, nontender, nondistended, normal bowel sounds, no masses : Deferred Back: Nontender, no CVA tenderness. Extremities: Bilateral leg edema. No trauma Skin: Normal color, no trauma, abrasions Neuro: Alert, oriented, cranial nerves II through XII grossly intact. Psychiatry: Normal mood. Normal affect. Not depressed. Not anxious. Results Lab / Micro Data Result Diagrams: 06/23/22 22:15 06/23/22 22:15 Labs: Laboratory Results - last 24 hr 06/23/22 22:15: WBC 5.4, RBC 3.98 L, Hgb 11.9 L, Hct 37.8, MCV 95.0, MCH 29.9, MCHC 31.5 L, RDW Std Deviation 42.9, RDW Coeff of Bonny 12.3, Plt Count 136 L, MPV 9.5, Immature Gran % (Auto) 0.200, Neut % (Auto) 79.3 H, Lymph % (Auto) 10.1 L, [place] % (Auto) 9.8, Eos % (Auto) 0.4, Baso % (Auto) 0.2, Absolute Neuts (auto) 4.3, Absolute Lymphs (auto) 0.55 L, Nucleated RBC % 0, Differential Comment SEE COMMENT, Platelet Estimate SLT DEC, RBC Morphology N CHROM, Anisocytosis RARE, Macrocytosis RARE 06/23/22 22:15: PT 21.0 H, INR 1.9 06/23/22 22:15: Sodium 140, Potassium 3.6, Chloride 97 L, Carbon Dioxide 38.0 H, Anion Gap 5, BUN 25 H, Creatinine 0.51 L, Estim Creat Clear Calc 39.39, Est GFR (MDRD) Af Amer 151, Est GFR (MDRD) Non-Af 125, BUN/Creatinine Ratio 49.4 H, Glucose 111 H, Calcium 9.0, Total Bilirubin 0.40, AST 19, ALT 16, Alkaline Phosphatase 61, Troponin I High Sens 22, Total Protein 6.7, Albumin 3.0 L, Globulin 3.7, Albumin/Globulin Ratio 0.8 L 06/23/22 23:15: Urine Color Yellow, Urine Clarity Clear, Urine pH 8.0, Ur Specific [place] 1.015, Urine Protein Negative, Urine Glucose (UA) Normal, Urine Ketones Negative, Urine Occult Blood 10 H, Urine Nitrite Negative, Urine Bilirubin Negative, Urine Urobilinogen Normal, Ur Leukocyte Esterase Negative, Urine RBC 0 SEEN, Urine WBC 0-5 SEEN, Ur Squamous Epith Cells 0-5 SEEN, Amorphous Sediment 1+, Urine Bacteria 1+, Urine Mucus 0 SEEN Micro: Microbiology 06/23/22 22:15 Nasal Secretion SARS-CoV-2 & FLU Antigen (Rapid) - Final Radiology Impression Brain CT 06/23/22 22:08 IMPRESSION: No acute abnormality. Electronically Signed: Jane Soto MD at 22:46 EDT , Chest X-Ray 06/23/22 22:30 IMPRESSION: No evidence of active intrathoracic disease. Electronically Signed: Jane Soto MD at 22:51 EDT , Assessment & Plan Assessment/Plan (1) Generalized weakness: (2) Inability to walk: (3) Paroxysmal atrial fibrillation: PLAN: Plan Bilateral leg weakness likely secondary to lymphedema Chest x-ray was visualized and independently interpreted. No acute cardiopulmonary process. I agree radiology interpretation. Brain CT with no acute pathology. Check vitamin D level and TSH. PT and OT to work with patient for strengthening and balance training. Case management consult. Chronic atrial fibrillation INR is supratherapeutic at 1.9. Review of records show that her INR on 06/19/2007 was 4.1. Coumadin dose recently adjusted. Coumadin continued. Trend PT/INR. Lymphedema Wound care?consult. Continue home KARO valdez. Chronic anemia Hemoglobin on presentation was 11.9, stable. DVT prophylaxis: Coumadin as above. Charges/Coding Visit Charges OBSV E&M: 05470 Initial observation care L3
[2022-06-24 02:57] LABS: Thyroid Stim Hormone (TSH) 2.62 uIU/mL (0.358-3.74)
[2022-06-24 06:54] LABS: Absolute Lymphocyte Count 1.16 X10^3/uL (0.83-4.51); Absolute Neutrophil Count 2.3 X10^3/uL (2.0-7.7); Basophil# 0.02 X10^3/uL; Basophil% 0.5 % (0-1); Eosinophil# 0.06 X10^3/uL; Eosinophils% 1.5 % (0-5); Hematocrit 35.3 % (37-47); Hemoglobin 11.1 g/dL (12.0-15.0); Lymphocyte # 1.16 X10^3/ul (0.83-4.51); Lymphocyte % 28.9 % (19-41); Mean Corp Hgb Conc 31.4 g/dL (32-36); Mean Corpuscular Hgb 30.4 pg (27.0-32.0); Mean Corpuscular Volume 96.7 fL (81-99); Mean Platelet Vol. 9.7 fl (6.2-12.0); Monocyte% 12.5 % (0-10); NRBC Flagged by Analyzer 0 % (0-5); Neutrophil # 2.27 X10^3/uL (2.7-7.7); Neutrophil % 56.6 % (47-70); Platelet Count 128 K/mm3 (150-450); RBC Distribution Width CV 12.4 % (11.6-14.6); RBC Distribution Width SD 43.8 fl (35.1-43.9); Red Blood Count 3.65 M/mm3 (4.2-5.4)
[2022-06-24 07:00] LABS: International Normalized Ratio 1.9; Prothrombin Time (Protime)PT. 21.4 SECONDS (11.7-14.9)
[2022-06-24 07:15] LABS: Anion Gap 3 (5-15); BUN 19 mg/dL (7-18); BUN/Creat Ratio 55.4 RATIO (10-20); Calcium,Total 8.7 mg/dL (8.5-10.1); Chloride 98 mmol/L (98-107); Creatinine, Serum 0.34 mg/dL (0.55-1.02); EST Glomerular Filtration Rate 195 mL/min (>60); Est Glom Filt Rate - Afr Amer 236 mL/min (>60); Estimated Creatinine Clearance 39.39 ml/min; Glucose 92 mg/dL (74-106); Potassium 3.7 mmol/L (3.5-5.1); Sodium Level 138 mmol/L (136-145)
--- NOTE | 2022-06-24 09:53 | PCM.PN.HOSP ---
Subjective Subjective Patient seen and examined. She still feels weak this morning. She has no other complaints and review of systems otherwise negative. Physical therapy was present and working with her. Objective Data Objective Data Vital Signs: Vital Signs Temp Pulse Resp BP Pulse Ox O2 Del Method O2 Flow Rate 99.1 F 75 18 115/62 4 Nasal Cannula 4 06/24/22 07:54 06/24/22 07:55 06/24/22 07:55 06/24/22 07:54 06/24/22 09:09 06/24/22 07:55 06/24/22 09:25 Oxygen Flow Rate (L/min) 4 Oxygen Delivery Method Nasal Cannula Weight: 260 lb 9.382 oz Body Mass Index (BMI) 44.4 Intake & Output: Intake and Output for Last 24 Hours 06/22/22 06/23/22 06/24/22 23:59 23:59 23:59 Output Total 550 / 550 Balance -550 / -550 Lab / Micro Data Result Diagrams: 06/24/22 06:07 06/24/22 06:07 Labs: Laboratory Results - last 24 hr 06/23/22 22:15: WBC 5.4, RBC 3.98 L, Hgb 11.9 L, Hct 37.8, MCV 95.0, MCH 29.9, MCHC 31.5 L, RDW Std Deviation 42.9, RDW Coeff of Bonny 12.3, Plt Count 136 L, MPV 9.5, Immature Gran % (Auto) 0.200, Neut % (Auto) 79.3 H, Lymph % (Auto) 10.1 L, [place] % (Auto) 9.8, Eos % (Auto) 0.4, Baso % (Auto) 0.2, Absolute Neuts (auto) 4.3, Absolute Lymphs (auto) 0.55 L, Nucleated RBC % 0, Differential Comment SEE COMMENT, Platelet Estimate SLT DEC, RBC Morphology N CHROM, Anisocytosis RARE, Macrocytosis RARE 06/23/22 22:15: PT 21.0 H, INR 1.9 06/23/22 22:15: Sodium 140, Potassium 3.6, Chloride 97 L, Carbon Dioxide 38.0 H, Anion Gap 5, BUN 25 H, Creatinine 0.51 L, Estim Creat Clear Calc 39.39, Est GFR (MDRD) Af Amer 151, Est GFR (MDRD) Non-Af 125, BUN/Creatinine Ratio 49.4 H, Glucose 111 H, Calcium 9.0, Total Bilirubin 0.40, AST 19, ALT 16, Alkaline Phosphatase 61, Troponin I High Sens 22, Total Protein 6.7, Albumin 3.0 L, Globulin 3.7, Albumin/Globulin Ratio 0.8 L 06/23/22 22:15: TSH 2.62 06/23/22 23:15: Urine Color Yellow, Urine Clarity Clear, Urine pH 8.0, Ur Specific [place] 1.015, Urine Protein Negative, Urine Glucose (UA) Normal, Urine Ketones Negative, Urine Occult Blood 10 H, Urine Nitrite Negative, Urine Bilirubin Negative, Urine Urobilinogen Normal, Ur Leukocyte Esterase Negative, Urine RBC 0 SEEN, Urine WBC 0-5 SEEN, Ur Squamous Epith Cells 0-5 SEEN, Amorphous Sediment 1+, Urine Bacteria 1+, Urine Mucus 0 SEEN 06/24/22 06:07: WBC 4.0 L, RBC 3.65 L, Hgb 11.1 L, Hct 35.3 L, MCV 96.7, MCH 30.4, MCHC 31.4 L, RDW Std Deviation 43.8, RDW Coeff of Bonny 12.4, Plt Count 128 L, MPV 9.7, Immature Gran % (Auto) 0.000, Neut % (Auto) 56.6, Lymph % (Auto) 28.9, [place] % (Auto) 12.5 H, Eos % (Auto) 1.5, Baso % (Auto) 0.5, Absolute Neuts (auto) 2.3, Absolute Lymphs (auto) 1.16, Nucleated RBC % 0 06/24/22 06:07: PT 21.4 H, INR 1.9 06/24/22 06:07: Sodium 138, Potassium 3.7, Chloride 98, Carbon Dioxide 37.0 H, Anion Gap 3 L, BUN 19 H, Creatinine 0.34 L, Estim Creat Clear Calc 39.39, Est GFR (MDRD) Af Amer 236, Est GFR (MDRD) Non-Af 195, BUN/Creatinine Ratio 55.4 H, Glucose 92, Calcium 8.7 Micro: Microbiology 06/23/22 22:15 Nasal Secretion SARS-CoV-2 & FLU Antigen (Rapid) - Final Radiography Diagnostic Testing: Radiology Impression Brain CT 06/23/22 22:08 IMPRESSION: No acute abnormality. Electronically Signed: Jane Soto MD at 22:46 EDT Reading Location ID and State: [facility] / [place] Tel , Service support , Chest X-Ray 06/23/22 22:30 IMPRESSION: No evidence of active intrathoracic disease. Electronically Signed: Jane Soto MD at 22:51 EDT , Physical Exam Const alert, oriented x3 and no apparent distress HEENT head/scalp atraumatic, moist oral mucous membranes and oropharynx normal Head and Scalp: normocephalic Mouth: oral and palatal mucosa normal Eyes PERRL, EOMs intact bilaterally and conjunctivae normal Neck no lymphadenopathy, supple and no JVD Resp normal respiratory effort, no retractions, no use of accessory muscles and clear to auscultation bilaterally Cardio regular rate, regular rhythm, S1 normal heart sound, S2 normal heart sound and no murmurs GI normal to inspection, nondistended, normoactive bowel sounds, soft to palpation, non-tender and non-distended Extremity normal to inspection Extremity Narrative: bilateral LE lymphedema Neuro oriented x3, CN's II-XII intact bilaterally, moves all extremities and no focal motor deficits Sensorium / Orientation: awake and alert Motor Exam: strength 5/5 throughout Psych affect normal Assessment & Plan Assessment/Plan (1) Generalized weakness: (2) Inability to walk: PLAN: Plan #DEbility due to mechanical fall and bilateral LE lymphedema PT/OT on board fall precautions will benefit from placement #Chronic afib on coumadin. INR today is 1.9. doesnt appear to be on any beta keron #Bilateral LE lymphedema chronic. Uses a lymphedema pump at home. KARO hose stockings in place. PT OT on board. Fall precautions. #Thrombocytopenia: Platelets are 136 on admission and now down to 128. Etiology is unclear. We will continue monitoring for now. #Asymptomatic bacteriuria urinalysis showed 1+ bacteria. 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 INR today is 1.9 Charges/Coding Visit Charges OBSV E&M: 18676 Subsequent observation care L2
[2022-06-24] MEDS: hydroCHLOROthiazide 25 MG Tablet PO (10:24)
[2022-06-24] MEDS: Doxycycline 100 MG CAPSULE PO (10:24)
[2022-06-24] MEDS: Cholecalciferol (VIT D3) 25 MCG TABLET (1,000 UNITS) 50 MCG PO ×2 (10:24→21:22)
[2022-06-24] MEDS: Loratadine 10 MG Tablet PO (10:24)
[2022-06-24] MEDS: FLU VACC QS2022-23(6MOS UP)/PF 60 MCG/0.5 ML SYRINGE IM (10:25)
--- NOTE | 2022-06-24 11:50 | CM.ED ---
SW note ABEL Javier advised that patient will need assistance at discharge and would benefit from a rehab program. ABEL LEE advised that patient could be discharged today per records review. AMBROCIO spoke to patient. She reports an interest in going somewhere for rehab. Her first choice is TCU. AMBROCIO provided her with list of SNF in [facility]. Patient has home health from [facility] currently. Patient reports no second choice if unable to get into TCU. AMBROCIO called Sissy Rose, director at TCU/ and requested she review patient's chart for admission. Ms. Rose called and advised that patient can be admitted to TCU but after 7pm. AMBROCIO updated ABEL LEE that patient can go to TCU today however, not till after 7pm. Plan: TCU [facility]
--- NOTE | 2022-06-24 13:28 | CASEMGMT ---
Addendum entered by Clemencia Harding 06/24/22 14:24: Correction: error. Pt does not have CM through [facility]/SW not notified of same. Charted this info on wrong patient. Addendum entered by Clemencia Harding 06/24/22 13:32: AMBROCIO Vazqeuz, informed this RN CM that pt states she is active w/[facility]. Call placed to nurse Josy @ [facility], and she was made aware of pt's admission and plan for TCU tomorrow. Pt made aware [facility] notified and that states will notify [facility] of admission. She voices appreciation. Original Note: RN ROSA NOTE: Intro role of CM to patient and ALBERTS form explained re: Observation status for treatment of fall, weakness. Explained hospitalization will be paid per her insurance policy for Outpatient billing and condition will continue to be evaluated for Inpt necessity. Also let pt know that [facility] sends paper in the billing packet with their phone number if questions arise. Discussed Pharmacy section of ALBERTS form and self administered medication guideline. Pt verbalizes understanding and does not have further questions. Form signed, copy made and placed in chart, and original given to pt. Dr Camilo made aware TCU able to accept pt and she can discharge to TCU after [address] Camilo states plans to discharge pt to TCU tomorrow. SW and pt made aware. Yanci SUNSHINE RN, CM
[2022-06-24] MEDS: Acetaminophen 325 MG Tablet 650 MG PO ×2 (13:33→21:26)
--- NOTE | 2022-06-24 13:38 | CM.ED ---
AMBROCIO was advised that patient is going to TCU tomorrow. RN ROSA agreed to update patient. AMBROCIO called nursing station at TCU x2 and no answer. AMBROCIO called [facility] [employer] and advised that patient is going to TCU tomorrow. Grayson said that he will update TCU about patient coming tomorrow. Plan: TCU on Sunday Taylor MARROQUIN
[2022-06-24] MEDS: Simvastatin 10 MG Tablet PO (21:23)
[2022-06-24] MEDS: Pantoprazole Sodium 40 MG Tablet PO (21:23)
[2022-06-25 02:16] VITALS: BP 126/54; PULSE 80; RESP 16; TEMP 37.2; O2SAT 96
[2022-06-25 02:57] VITALS: BP 126/54; PULSE 80; RESP 16; TEMP 37.2; O2SAT 96
[2022-06-25] MEDS: Acetaminophen 325 MG Tablet 650 MG PO (05:34)
[2022-06-25 06:19] LABS: Absolute Lymphocyte Count 1.28 X10^3/uL (0.83-4.51); Absolute Neutrophil Count 2.5 X10^3/uL (2.0-7.7); Basophil# 0.01 X10^3/uL; Basophil% 0.2 % (0-1); Eosinophil# 0.12 X10^3/uL; Eosinophils% 2.7 % (0-5); Hemoglobin 11.3 g/dL (12.0-15.0); Lymphocyte # 1.28 X10^3/ul (0.83-4.51); Lymphocyte % 29.3 % (19-41); Mean Corp Hgb Conc 32.3 g/dL (32-36); Mean Corpuscular Hgb 31.2 pg (27.0-32.0); Mean Corpuscular Volume 96.7 fL (81-99); Mean Platelet Vol. 9.8 fl (6.2-12.0); Monocyte% 11.4 % (0-10); NRBC Flagged by Analyzer 0 % (0-5); Neutrophil # 2.45 X10^3/uL (2.7-7.7); Neutrophil % 56.2 % (47-70); Platelet Count 122 K/mm3 (150-450); RBC Distribution Width CV 12.4 % (11.6-14.6); RBC Distribution Width SD 44.1 fl (35.1-43.9); Red Blood Count 3.62 M/mm3 (4.2-5.4); White Blood Count 4.4 K/mm3 (4.4-11.0)
[2022-06-25 06:28] LABS: Prothrombin Time (Protime)PT. 22.7 SECONDS (11.7-14.9)
[2022-06-25 07:59] LABS: Anion Gap 3 (5-15); BUN 18 mg/dL (7-18); BUN/Creat Ratio 35.4 RATIO (10-20); Calcium,Total 8.5 mg/dL (8.5-10.1); Chloride 98 mmol/L (98-107); Creatinine, Serum 0.51 mg/dL (0.55-1.02); EST Glomerular Filtration Rate 124 mL/min (>60); Est Glom Filt Rate - Afr Amer 150 mL/min (>60); Estimated Creatinine Clearance 39.39 ml/min; Glucose 95 mg/dL (74-106); Potassium 3.9 mmol/L (3.5-5.1); Sodium Level 138 mmol/L (136-145)
[2022-06-25 08:00] VITALS: PULSE 70
[2022-06-25 08:30] VITALS: BP 110/55; PULSE 72; RESP 18; TEMP 36.6; O2SAT 97
[2022-06-25] MEDS: Loratadine 10 MG Tablet PO (10:36)
[2022-06-25] MEDS: Doxycycline 100 MG CAPSULE PO (10:36)
[2022-06-25] MEDS: hydroCHLOROthiazide 25 MG Tablet PO (10:37)
[2022-06-25] MEDS: Cholecalciferol (VIT D3) 25 MCG TABLET (1,000 UNITS) 50 MCG PO (10:37)
--- NOTE | 2022-06-25 11:09 | DS.PCM_ITS ---
Providers Date of Admission: 06/24/22 Date of Discharge: 06/25/22 Primary Care Physician: Dr. Jose Miguel Chairez MD Consultations 06/24/22 01:54 Consult: Onc/Wound/wafer cutter Routine Comment: Reason for Consult:: Lymphedema Reason For Visit: GENERALIZED WEAKNESS, MULTIPLE FALLS Diagnosis Discharge Diagnosis (1) Generalized weakness: Status: Acute Code(s): R53.1 - Weakness (2) Inability to walk: Status: Acute Code(s): R26.2 - Difficulty in walking, not elsewhere classified Plan #DEbility due to mechanical fall and bilateral LE lymphedema * PT/OT on board * fall precautions * will benefit from placement * #Chronic afib * on coumadin. INR today is 1.9. * doesnt appear to be on any beta keron * #Bilateral LE lymphedema * chronic. Uses a lymphedema pump at home. * KARO hose stockings in place. * PT OT on board. Fall precautions. * #Thrombocytopenia: Platelets are 136 on admission and now down to 128. Etiology is unclear. We will continue monitoring for now. #Asymptomatic bacteriuria * urinalysis showed 1+ bacteria. 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 INR today is 1.9 Medications at Discharge Home Medications cetirizine 10 mg capsule 10 mg PO DAILY 11/10/16 cholecalciferol (vitamin D3) 50 mcg (2,000 unit) capsule 2,000 unit PO BID 11/10/16 fluticasone propionate 50 mcg/actuation nasal spray,suspension 1 spray NASAL DAILY PRN Allergies 11/10/16 doxycycline hyclate 100 mg tablet 100 mg PO DAILY 10/03/18 simvastatin 10 mg tablet 10 mg PO QHS 10/03/18 acetaminophen 650 mg tablet,extended release (Tylenol Arthritis Pain) 650 mg PO Q8H 11/24/19 lansoprazole 15 mg capsule,delayed release 30 mg PO QHS 06/14/22 hydrochlorothiazide 25 mg tablet 25 mg PO DAILY 06/24/22 warfarin 4 mg tablet 4 mg PO DAILY 06/24/22 Hospital Course Operations None Procedures None Summary of Care Provided Minutes Spent on Discharge: 45 Hospital Course: Patient is a 77-year-old with a past medical history as outlined who was admitted via the ED on 06/24/2022 with a complaint of bilateral lower extremity weakness. She had been having recurrent falls at home. Her weakness has been worsening so she came into the ED as she could not care for herself on account of living alone. She was admitted and managed for debility due to lymphedema with recurrent falls. PT OT was consulted and she worked with them. She was deemed as needing skilled care. She was discharged to the inpatient rehab unit on 06/25/2022. Patient seen and examined prior to discharge. She had no active complaints and had an uneventful night. Review of systems otherwise negative. Labs vitals reviewed. Home medication reviewed and reconciled. Physical Exam Const alert, oriented x3 and no apparent distress General Appearance: cooperative and comfortable Orientation / Consciousness: awake Exam Limitations: no limitations Nutritional Appearance: morbidly obese HEENT normocephalic, head/scalp atraumatic, hearing grossly normal bilaterally, moist oral mucous membranes and oropharynx normal Mouth: oral and palatal mucosa normal Eyes PERRL, EOMs intact bilaterally and conjunctivae normal Neck no lymphadenopathy, supple and no JVD Resp normal respiratory effort, no retractions, no use of accessory muscles and clear to auscultation bilaterally Cardio regular rate, regular rhythm, S1 normal heart sound, S2 normal heart sound and no murmurs GI normal to inspection, nondistended, normoactive bowel sounds, soft to palpation, non-tender and non-distended Extremity normal to inspection and full ROM Extremity Narrative: bilateral LE lymphedema Skin no rashes or lesions noted and no wounds Neuro oriented x3, CN's II-XII intact bilaterally, moves all extremities and no focal motor deficits Sensorium / Orientation: awake and alert Motor Exam: strength 5/5 throughout Psych affect normal Weight / BMI Weight Weight: 260 lb 9.382 oz Body Mass Index (BMI) 44.4 ABG / Lab / Microbiology Data Result Diagrams: 06/25/22 05:23 06/25/22 05:23 Laboratory: Laboratory Results - last 24 hr 06/25/22 05:23: PT 22.7 H, INR 2.0 06/25/22 05:23: WBC 4.4, RBC 3.62 L, Hgb 11.3 L, Hct 35.0 L, MCV 96.7, MCH 31.2, MCHC 32.3, RDW Std Deviation 44.1 H, RDW Coeff of Bonny 12.4, Plt Count 122 L, MPV 9.8, Immature Gran % (Auto) 0.200, Neut % (Auto) 56.2, Lymph % (Auto) 29.3, [place] % (Auto) 11.4 H, Eos % (Auto) 2.7, Baso % (Auto) 0.2, Absolute Neuts (auto) 2.5, Absolute Lymphs (auto) 1.28, Nucleated RBC % 0 06/25/22 05:23: Sodium 138, Potassium 3.9, Chloride 98, Carbon Dioxide 37.0 H, Anion Gap 3 L, BUN 18, Creatinine 0.51 L, Estim Creat Clear Calc 39.39, Est GFR (MDRD) Af Amer 150, Est GFR (MDRD) Non-Af 124, BUN/Creatinine Ratio 35.4 H, Glucose 95, Calcium 8.5 Microbiology: Microbiology 06/23/22 22:15 Nasal Secretion SARS-CoV-2 & FLU Antigen (Rapid) - Final D/C Instructions Discharge Diet: Low fat / Low cholesterol Discharge Activity: Return to Normal Activity Weight Bearing Status: Weight bearing as tolerated Call your doctor if you observe: Fever of 101 or Higher, Shortness of breath, Dizziness, Swelling in the ankles, Chest pain and Uncontrolled pain Meaningful Use Info Meaningful Use Diagnoses (Choose all that apply): None applicable Discharge Plan Admission Admit Date/Time: 06/24/22 01:08 Primary Reason for Your Visit: debility due to mechanical falls, chronic lymphedema of lower extremities Attending Provider: Alexa Camilo Primary Care Provider: Jose Miguel Chairez Consulting Providers: Lm Vela Instructions Patient Instructions: ED Fall with Uncertain Cause, ED Fall Prevention Discharge Orders/Prescriptions Prescriptions: Continued doxycycline hyclate 100 mg tablet 100 mg PO DAILY acetaminophen [Tylenol Arthritis Pain] 650 mg tablet extended release 650 mg PO Q8H lansoprazole 15 mg capsule,delayed release(DR/EC) 30 mg PO QHS fluticasone propionate 1 SPRAY spray,suspension 1 spray NASAL DAILY PRN (Reason: Allergies) cholecalciferol (vitamin D3) 2,000 UNIT capsule 2,000 unit PO BID cetirizine 10 MG capsule 10 mg PO DAILY simvastatin 10 mg tablet 10 mg PO QHS warfarin 4 mg tablet 4 mg PO DAILY Protocol: Dose Management Condition: Sunday Dose/Route: 4 mg Instruction: 1 x 4 mg tablet Condition: Sunday Dose/Route: 0 mg Instruction: 0 tablets Condition: Sunday Dose/Route: 2 mg Instruction: 0.5 x 4 mg tablets Condition: Sunday Dose/Route: 2 mg Instruction: 0.5 x 4 mg tablets Condition: Dose/Route: 2 mg Instruction: 0.5 x 4 mg tablets Condition: Sunday Dose/Route: 4 mg Instruction: 1 x 4 mg tablet Condition: Sunday Dose/Route: 4 mg Instruction: 1 x 4 mg tablet Protocol Text: Adjustment Start Date: Sunday06/19/22 INR Value: 4.1 INR Date: 06/19/22 Recheck Date: 06/26/22 hydrochlorothiazide 25 mg tablet 25 mg PO DAILY Rx Instructions: TAKE 1 TABLET BY MOUTH EVERY DAY Referrals / Follow Up: Jose Miguel Chairez MD [Primary Care Provider] - Within 2 Weeks Disposition Disposition (needs filled in before D/C Order can be placed): [facility] Charges/Coding Visit Charges OBSV E&M: 72408 Observation care discharge
[2022-06-25 11:17] VITALS: BP 111/59; PULSE 77; RESP 18; TEMP 36.7; O2SAT 95
--- NOTE | 2022-06-25 11:17 | TREXTCAR_ITS ---
Diet Diet Order/Speech Therapy: 06/24/22 01:54 Diet: Cardiac - Heart Healthy Food consistency:: Regular Liquid Consistency:: Regular/Thin Routine Orders/Code Status Enema Type: Fleetz Enema Frequency: Daily PRN Suppository Type: Dulcolax 10mg Suppository Frequency: Daily PRN O2 Frequency: PRN Keep PO Greater than or Equal to (%): 90 Wound(s) RLE: Wound Type: Pressure Injury Therapies Weight Bearing: Weight bearing as tolerated Physical Therapy: Eval and Treat Occupational Therapy: Eval and Treat Problem/Diagnosis (1) Generalized weakness: Status: Acute Code(s): R53.1 - Weakness (2) Inability to walk: Status: Acute Code(s): R26.2 - Difficulty in walking, not elsewhere classified Plan #DEbility due to mechanical fall and bilateral LE lymphedema * PT/OT on board * fall precautions * will benefit from placement * #Chronic afib * on coumadin. INR today is 1.9. * doesnt appear to be on any beta keron * #Bilateral LE lymphedema * chronic. Uses a lymphedema pump at home. * KARO hose stockings in place. * PT OT on board. Fall precautions. * #Thrombocytopenia: Platelets are 136 on admission and now down to 128. Etiology is unclear. We will continue monitoring for now. #Asymptomatic bacteriuria * urinalysis showed 1+ bacteria. 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 INR today is 1.9 Allergies/Procedures Done in Hospital Allergies DANIEL Inhibitors Allergy (Verified 06/14/22 14:52) Hives ampicillin Allergy (Verified 06/14/22 14:52) Hives atorvastatin [From Lipitor] Allergy (Verified 06/14/22 14:52) Other ACHING chlorophyllin [From Panafil] Allergy (Verified 06/14/22 14:52) Other oxycodone [From Percocet] Allergy (Verified 06/14/22 14:52) Upset Stomach papain [From Panafil] Allergy (Verified 06/14/22 14:52) Other propoxyphene [From Darvocet-N] Allergy (Verified 06/14/22 14:52) Upset Stomach urea [From Panafil] Allergy (Verified 06/14/22 14:52) Other spironolactone Adverse Reaction (Intermediate, Verified 06/14/22 14:52) blood in urine Type of Care/Length of Stay Estimated LOS: Convalescent Care Less Than 30 days Type of Care Needed: Skilled Rehab Potential: Fair Prognosis: Fair Additional Orders/Day of Discharge Day of Discharge: 06/25/22 Discharge Plan Admission Admit Date/Time: 06/24/22 01:08 Primary Reason for Your Visit: debility due to mechanical falls, chronic lymphedema of lower extremities Attending Provider: Alexa Camilo Primary Care Provider: Jose Miguel Chairez Consulting Providers: Lm Vela Instructions Patient Instructions: ED Fall with Uncertain Cause, ED Fall Prevention Discharge Orders/Prescriptions Prescriptions: Continued doxycycline hyclate 100 mg tablet 100 mg PO DAILY acetaminophen [Tylenol Arthritis Pain] 650 mg tablet extended release 650 mg PO Q8H lansoprazole 15 mg capsule,delayed release(DR/EC) 30 mg PO QHS fluticasone propionate 1 SPRAY spray,suspension 1 spray NASAL DAILY PRN (Reason: Allergies) cholecalciferol (vitamin D3) 2,000 UNIT capsule 2,000 unit PO BID cetirizine 10 MG capsule 10 mg PO DAILY simvastatin 10 mg tablet 10 mg PO QHS warfarin 4 mg tablet 4 mg PO DAILY Protocol: Dose Management Condition: Sunday Dose/Route: 4 mg Instruction: 1 x 4 mg tablet Condition: Sunday Dose/Route: 0 mg Instruction: 0 tablets Condition: Sunday Dose/Route: 2 mg Instruction: 0.5 x 4 mg tablets Condition: Sunday Dose/Route: 2 mg Instruction: 0.5 x 4 mg tablets Condition: Dose/Route: 2 mg Instruction: 0.5 x 4 mg tablets Condition: Sunday Dose/Route: 4 mg Instruction: 1 x 4 mg tablet Condition: Sunday Dose/Route: 4 mg Instruction: 1 x 4 mg tablet Protocol Text: Adjustment Start Date: Sunday06/19/22 INR Value: 4.1 INR Date: 06/19/22 Recheck Date: 06/26/22 hydrochlorothiazide 25 mg tablet 25 mg PO DAILY Rx Instructions: TAKE 1 TABLET BY MOUTH EVERY DAY Referrals / Follow Up: Jose Miguel Chairez MD [Primary Care Provider] - Within 2 Weeks Disposition Disposition (needs filled in before D/C Order can be placed): Senior Living Facility
[2022-06-26 08:16] LABS: Vitamin D,25 Hydroxy 48.4 ng/mL
== END 2022-06-25 13:36 | disposition skilled nursing facility (03) ==
LOC: ED 06-24 01:05 → MS3 06-24 01:16
PROVIDERS: Admitting Provider Hospitalist; Emergency Provider Emergency Medicine; PCP Family Medicine; Visit Provider Student in an Organized Health Care Education/Training Program
DX: I89.0 Lymphedema, not elsewhere classified (principal); I27.20 Pulmonary hypertension, unspecified; I48.0 Paroxysmal atrial fibrillation; D69.6 Thrombocytopenia, unspecified; E86.0 Dehydration; R26.2 Difficulty in walking, not elsewhere classified; R53.81 Other malaise; R82.71 Bacteriuria; I10 Essential (primary) hypertension; E78.00 Pure hypercholesterolemia, unspecified; D64.9 Anemia, unspecified; K21.9 Gastro-esophageal reflux disease without esophagitis; G47.33 Obstructive sleep apnea (adult) (pediatric); G14 Postpolio syndrome; Z79.899 Other long term (current) drug therapy; Z99.81 Dependence on supplemental oxygen; Z79.01 Long term (current) use of anticoagulants; Z20.822 Contact with and (suspected) exposure to COVID-19; Z82.3 Family history of stroke; Z23 Encounter for immunization
CPT/HCPCS: 36415; 70450; 71045; 80048; 80053; 81001; 82306; 84443; 84484; 85025; 85610; 87426; 87428; 93005; 97162; 97166; 97530; 99218; 99285; G0008; 90686; A4216; G0378

== ENCOUNTER 2022-06-25 13:50 | Inpatient (IN) | payer MEDICARE, OTHER, SELFPAY ==
[2022-06-25 14:25] VITALS: BP 111/59; PULSE 69; RESP 16; TEMP 36.4; O2SAT 93; BMI 44.6
--- NOTE | 2022-06-25 15:08 | HP.PCM_ITS ---
HPI - General General Date of Admission: 06/25/22 Date of Service: 06/26/22 Chief Complaint: Here for rehab. HPI Narrative 06/23/2022 ELIGIO ALANIS, is a 77 Female who presents to [facility] Emergency Department with fall. Generalized weakness x 2 days, bilateral lower extremity weakness. Chronic lymphedema unchanged. Fall x 2, on coumadin for atrial fibrillation. Oxygen 4 liters per nasal cannula for pulmonary hypertension. Mild anemia, INR 1.9, CMP okay, BUN elevated, Creatinine elevated, Urinalysis negative. Flu negative, covid negative. Too weak to get up and walk. 06/24/[address] brain negative. PT/OT for debility. KARO hose for lymphedema. 06/24/2022 Feels weak still. Sequential compression device at home for lymphedema. 06/25/2022 Admit to TCU with debility for rehabilitation, strengthening, prior to discharge home alone. 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 Non-smoker On home oxygen therapy JUSTINA on CPAP Paroxysmal atrial fibrillation Poliomyelitis Pulmonary hypertension Pure hypercholesterolemia Right bundle branch block (RBBB) Home Medications cetirizine 10 mg capsule 10 mg PO DAILY allergies 11/10/16 [History Last Taken 11/14/16 07:30] cholecalciferol (vitamin D3) 50 mcg (2,000 unit) capsule 2,000 unit PO BID supplement 11/10/16 [History Last Taken Unknown] fluticasone propionate 50 mcg/actuation nasal spray,suspension 1 spray NASAL DAILY PRN Allergies 11/10/16 [History Last Taken Unknown] doxycycline hyclate 100 mg tablet 100 mg PO DAILY antibiotic 10/03/18 [History Last Taken Unknown] simvastatin 10 mg tablet 10 mg PO QHS cholesterol 10/03/18 [History Last Taken Unknown] acetaminophen 650 mg tablet,extended release (Tylenol Arthritis Pain) 650 mg PO Q8H pain 11/24/19 [History Last Taken Unknown] lansoprazole 15 mg capsule,delayed release 30 mg PO QHS acid reflux 06/14/22 [History Last Taken Unknown] hydrochlorothiazide 25 mg tablet 25 mg PO DAILY BP 06/24/22 [History Last Taken Unknown] warfarin 4 mg tablet 4 mg PO PRN afib 06/24/22 [History Last Taken Unknown] warfarin 2 mg tablet 2 mg PO afib 06/25/22 [History Last Taken Unknown] Allergy/AdvReac Type Severity Reaction Status Date / Time DANIEL Inhibitors Allergy Hives Verified 06/14/22 14:52 ampicillin Allergy Hives Verified 06/14/22 14:52 atorvastatin [From Lipitor] Allergy Other Verified 06/14/22 14:52 chlorophyllin [From Panafil] Allergy Other Verified 06/14/22 14:52 oxycodone [From Percocet] Allergy Upset Verified 06/14/22 14:52 Stomach papain [From Panafil] Allergy Other Verified 06/14/22 14:52 propoxyphene Allergy Upset Verified 06/14/22 14:52 [From Darvocet-N] Stomach urea [From Panafil] Allergy Other Verified 06/14/22 14:52 spironolactone AdvReac Intermediate blood in Verified 06/14/22 14:52 urine Family History Mother CVA (cerebral vascular accident) Diabetes Cancer Bladder Grandmother Heart disease Surgical History History of bilateral cataract extraction History of tonsillectomy and adenoidectomy History of total knee replacement History of total right hip replacement Social History (Updated 06/25/22 @ 15:[address] Parish Anand MD) household members: none Smoking Status: Never smoker alcohol intake: never substance use type: does not use caffeine: Yes Type: coffee Number of servings: 3 ROS Constitutional Constitutional: Reports weakness; Denies chills, fever(s) or weight gain ENT HEENT: Denies headache(s), nasal congestion or nasal discharge Cardiovascular Cardiovascular: Denies chest pain or palpitations Respiratory/Chest Respiratory/Chest: Denies cough, excessive phlegm production or shortness of breath with exertion Gastrointestinal Gastrointestinal: Denies abdominal pain, nausea or vomiting Genitourinary Genitourinary: Denies dysuria Musculoskeletal Musculoskeletal: Denies joint pain or joint swelling Integumentary Integumentary: Denies rash or wounds Neurologic Neurologic: Denies focal weakness, numbness or tingling Psychiatric Psychiatric: Denies anxiety, auditory hallucinations, depression, homicidal ideation or suicidal ideation Physical Exam Const alert General Appearance: cooperative HEENT normocephalic Eyes PERRL and EOMs intact bilaterally Neck supple, no JVD and no carotid bruits Resp normal respiratory effort, normal air movement and clear to auscultation bilaterally Cardio regular rate and regular rhythm GI normal to inspection, nondistended, normoactive bowel sounds, non-tender and n on-distended Extremity normal capillary refill General Extremity: Negative for edema Skin no rashes or lesions noted General Skin Exam: no breakdown Psych affect normal Appearance: appropriate Results Lab / Micro Data Result Diagrams: 06/26/22 05:10 06/26/22 05:10 Assessment & Plan Assessment/Plan (1) Debility: (2) Dehydration: (3) Pulmonary hypertension: (4) JUSTINA on CPAP: (5) Lymphedema: (6) Atrial fibrillation: (7) Allergic rhinitis: (8) Hyperlipidemia: (9) Hypertension: (10) Gastroesophageal reflux disease: PLAN: Plan 77 year old female with below past medical history hospitalized for weakness secondary to dehydration, admitted to TCU with debility, here for rehabilitation, strengthening, prior to discharge home alone. * Debility - PT/OT. * Pain - Tylenol 1000mg q8. * Bowel - senna/colace 1 tablet bid, MOM 30ml daily prn. * Adult immunization - Administer pneumonia vaccine, covid19 vaccine, flu vaccine as appropriate. * DVT prophylaxis - Not necessary, on warfarin. * Vitamin D deficiency - D3 2000iu bid. * Prosthetic knee infection - Doxycycline 100mg daily forever. * Allergic rhinitis - Loratadine 10mg daily, Flonase 1 spray daily prn. * Hypertension - HCTZ 25mg daily. * GERD - Lansoprazole 30mg qhs. * Hyperlipidemia - Simvastatin 10mg qhs. * Atrial fibrillation - Warfarin 4mg 3 days/week, 2mg 3 days/week, follow INR.
[2022-06-25] MEDS: Cholecalciferol (VIT D3) 25 MCG TABLET (1,000 UNITS) 50 MCG PO (17:55)
[2022-06-25] MEDS: Pantoprazole Sodium 40 MG Tablet PO (19:57)
[2022-06-25] MEDS: Simvastatin 10 MG Tablet PO (19:57)
[2022-06-25] MEDS: Acetaminophen 500 MG Tablet 1000 MG PO (19:57)
[2022-06-25] MEDS: Menthol/Lanolin/Calamine/Znox 113 GM Tube 1 APPLIC TOPICAL (19:58)
[2022-06-26 05:25] LABS: Absolute Lymphocyte Count 1.02 X10^3/uL (0.83-4.51); Absolute Neutrophil Count 2.7 X10^3/uL (2.0-7.7); Basophil# 0.01 X10^3/uL; Basophil% 0.2 % (0-1); Eosinophils% 4.5 % (0-5); Hematocrit 35.6 % (37-47); Hemoglobin 11.3 g/dL (12.0-15.0); Lymphocyte # 1.02 X10^3/ul (0.83-4.51); Lymphocyte % 23.1 % (19-41); Mean Corp Hgb Conc 31.7 g/dL (32-36); Mean Corpuscular Volume 97.5 fL (81-99); Mean Platelet Vol. 9.3 fl (6.2-12.0); Monocyte# 0.52 X10^3/uL; Monocyte% 11.8 % (0-10); NRBC Flagged by Analyzer 0 % (0-5); Neutrophil # 2.66 X10^3/uL (2.7-7.7); Neutrophil % 60.2 % (47-70); Platelet Count 121 K/mm3 (150-450); RBC Distribution Width CV 12.4 % (11.6-14.6); RBC Distribution Width SD 44.2 fl (35.1-43.9); Red Blood Count 3.65 M/mm3 (4.2-5.4); White Blood Count 4.4 K/mm3 (4.4-11.0)
[2022-06-26] MEDS: Cholecalciferol (VIT D3) 25 MCG TABLET (1,000 UNITS) 50 MCG PO ×2 (05:25→17:43)
[2022-06-26] MEDS: Acetaminophen 500 MG Tablet 1000 MG PO ×3 (05:25→21:27)
[2022-06-26] MEDS: Doxycycline 100 MG CAPSULE PO (05:26)
[2022-06-26] MEDS: hydroCHLOROthiazide 25 MG Tablet PO (05:26)
[2022-06-26] MEDS: Senna/Docusate Sodium 1 Tablet PO ×2 (05:26→17:40)
[2022-06-26] MEDS: Loratadine 10 MG Tablet PO (05:26)
[2022-06-26] MEDS: Menthol/Lanolin/Calamine/Znox 113 GM Tube 1 APPLIC TOPICAL ×2 (05:30→21:27)
[2022-06-26 05:57] LABS: Anion Gap 4 (5-15); BUN 15 mg/dL (7-18); BUN/Creat Ratio 39.8 RATIO (10-20); Calcium,Total 8.7 mg/dL (8.5-10.1); Chloride 97 mmol/L (98-107); Creatinine, Serum 0.38 mg/dL (0.55-1.02); EST Glomerular Filtration Rate 175 mL/min (>60); Est Glom Filt Rate - Afr Amer 212 mL/min (>60); Estimated Creatinine Clearance 39.39 ml/min; Glucose 102 mg/dL (74-106); Potassium 3.7 mmol/L (3.5-5.1); Sodium Level 141 mmol/L (136-145)
[2022-06-26 08:10] LABS: Prothrombin Time (Protime)PT. 22.7 SECONDS (11.7-14.9)
[2022-06-26] MEDS: Tuberculin,Purif.prot.deriv. 50 TU/ML Vial 0.1 ML ID (09:22)
--- NOTE | 2022-06-26 12:33 | NURSING ---
Apron Cleaner Note; Activity Asst: Complete
[2022-06-26 14:00] VITALS: BP 135/67; PULSE 75; RESP 16; TEMP 36.7; O2SAT 95
--- NOTE | 2022-06-26 15:59 | PCM.PN.DRR ---
TCU RX Drug Regimen Review Subjective: TCU Admission. 77 YOF presented to the ER with a fall/weakness and was then hospitalized. Admitted to TCU with debility for strengthening and rehabilitation. Objective: Allergies DANIEL Inhibitors Allergy (Verified 06/14/22 14:52) Hives ampicillin Allergy (Verified 06/14/22 14:52) Hives atorvastatin [From Lipitor] Allergy (Verified 06/14/22 14:52) Other ACHING chlorophyllin [From Panafil] Allergy (Verified 06/14/22 14:52) Other oxycodone [From Percocet] Allergy (Verified 06/14/22 14:52) Upset Stomach papain [From Panafil] Allergy (Verified 06/14/22 14:52) Other propoxyphene [From Darvocet-N] Allergy (Verified 06/14/22 14:52) Upset Stomach urea [From Panafil] Allergy (Verified 06/14/22 14:52) Other spironolactone Adverse Reaction (Intermediate, Verified 06/14/22 14:52) blood in urine Current Medications Generic Name Dose Route Start Last Admin Trade Name Freq PRN Reason Stop Dose Admin Acetaminophen 1,000 mg 06/25/22 22:00 06/26/22 13:56 Acetaminophen 500 Mg Tablet PO 1,000 mg Q8 JANELL Administration Calamine/Phenol 1 applic 06/25/22 22:00 06/26/22 05:30 Menthol/Lanolin/Calamine/Znox 113 Gm Tube TOPICAL 1 applic BID JANELL Administration Protocol Cholecalciferol 50 mcg 06/25/22 18:00 06/26/22 05:25 Cholecalciferol (Vit D3) 25 Mcg Tablet (1,000 Units) PO 50 mcg BID JANELL Administration Doxycycline Monohydrate 100 mg 06/26/22 06:00 06/26/22 05:26 Doxycycline 100 Mg Capsule PO 100 mg DAILY JANELL Administration Fluticasone Propionate 1 spray 06/25/22 14:31 Fluticasone 0.05% 1 [place] Nasal.Sry NASAL DAILY PRN Allergies Hydrochlorothiazide 25 mg 06/26/22 06:00 06/26/22 05:26 Hydrochlorothiazide 25 Mg Tablet PO 25 mg DAILY JANELL Administration Sodium Chloride 250 mls @ 15 mls/hr 06/25/22 15:20 IV .[id number] PRN Saline Flush Sodium Chloride 250 mls @ 15 mls/hr 06/25/22 15:20 IV .[id number] PRN Additional IVPB Infusion Loratadine 10 mg 06/26/22 06:00 06/26/22 05:26 Loratadine 10 Mg Tablet PO 10 mg DAILY JANELL Administration Magnesium Hydroxide 30 ml 06/25/22 15:29 Magnesium Hydroxide 30 Ml Udc PO DAILY PRN Constipation Multi-Ingredient Cream 1 applic 06/25/22 19:16 Petrolatum 33% Tube TOPICAL TID PRN PRN DRY SKIN Protocol Pantoprazole Sodium 40 mg 06/25/22 22:00 06/25/22 19:57 Pantoprazole Sodium 40 Mg Tablet PO 40 mg QHS JANELL Administration Senna/Docusate Sodium 1 tablet 06/25/22 18:00 06/26/22 05:26 Senna/Docusate Sodium 1 Tablet PO 1 tablet BID JANELL Administration Simvastatin 10 mg 06/25/22 22:00 06/25/22 19:57 Simvastatin 10 Mg Tablet PO 10 mg QHS [facility] Administration Sodium Chloride 10 - 40 ml 06/25/22 15:20 0.9% Saline Lock 10 Ml Syringe IV UD PRN SALINE FLUSH Tuberculin PPD 0.1 ml 07/03/22 10:00 Tuberculin,Purif.Prot.Deriv. 50 Tu/Ml Vial ID 07/03/22 10:01 X1 ONE Warfarin Sodium 2 mg 06/27/22 17:00 Jantoven 2 Mg Tablet PO TuWeTh@1700 [facility] Warfarin Sodium 4 mg 06/25/22 17:00 06/25/22 17:54 Warfarin 4 Mg Tablet PO 4 mg SuFrSa@1700 [facility] Administration Problem List (Last Reviewed 06/25/22 @ 15:[address] Parish Anand MD) Gastroesophageal reflux disease (Acute) Hypertension (Chronic) Hyperlipidemia (Acute) Allergic rhinitis (Acute) Atrial fibrillation (Acute) Lymphedema (Acute) Debility (Acute) Dehydration (Acute) Pulmonary hypertension (Chronic) JUSTINA on CPAP (Chronic) Vital Signs Temp Pulse Resp BP Pulse Ox O2 Del Method O2 Flow Rate 98.1 F 75 16 135/67 H 95 Nasal Cannula 2 06/26/22 14:00 06/26/22 14:00 06/26/22 14:00 06/26/22 14:00 06/26/22 14:00 06/26/22 14:25 06/26/22 14:25 Oxygen Flow Rate (L/min) 2 Oxygen Delivery Method Nasal Cannula Weight: 117.934 kg Body Mass Index (BMI) 44.6 Sodium 141 mmol/L (136-145) 06/26/22 05:10 Potassium 3.7 mmol/L (3.5-5.1) 06/26/22 05:10 Chloride 97 mmol/L (98-107) L 06/26/22 05:10 Carbon Dioxide 40.0 mmol/L (21.0-32.0) H 06/26/22 05:10 Anion Gap 4 (5-15) L 06/26/22 05:10 BUN 15 mg/dL (7-18) 06/26/22 05:10 Creatinine 0.38 mg/dL (0.55-1.02) L 06/26/22 05:10 Est GFR (MDRD) Af Amer 212 mL/min (>60) 06/26/22 05:10 Est GFR (MDRD) Non-Af 175 mL/min (>60) 06/26/22 05:10 BUN/Creatinine Ratio 39.8 RATIO (10-20) H 06/26/22 05:10 Glucose 102 mg/dL (74-106) 06/26/22 05:10 Assessment/Plan: 1. Pain: acetaminophen 1000mg PO Q8. Please continue to monitor for increased pain. 2. Bowel: senna/docusate 1T PO BID and MOM 30mL PO daily PRN constipation. Please continue to monitor for constipation (last BM 06/25) and PRN usage. Resident has not used any MOM. 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 Please continue to monitor for S/S of infection and diarrhea. 4. Hypertension: hydrochlorothiazide 25mg PO daily. Please continue to monitor BP (last 135/67), sodium (last 141mmol/L), potassium (last 3.7mmol/L) and renal function. 5. GERD: pantoprazole 40mg PO QHS. Please continue to monitor for S/S of GERD and diarrhea. This medication is on the BEERs list for increased risk of C. diff and falls/fractures. Please continue to monitor. 6. Atrial fibrillation: warfarin 4mg PO SuFrSa and 2mg TuWeTh. Please continue to monitor for S/S of bleeding and INR (last 2). 7. Hyperlipidemia: simvastatin 10mg PO QHS. Please continue to monitor lipid panel (last 04/14/22), LFTs (last 06/23/22) and muscle pain. 8. Vitamin D deficiency: cholecalciferol 50mcg PO BID. Please continue to monitor vitamin D levels (last 06/24/22). 9. Allergic rhinitis: loratadine 10mg PO daily and fluticasone 0.05% 1 spray nasal daily PRN allergies. Please continue to monitor for allergies and PRN usage. Resident has not used any doses of Flonase. Assessment/Plan for indications treated with psychotropic medications: None Medical chart and medication regimen reviewed. The following medication irregularities or issues were identified: None Date of Note:: 06/26/22
--- NOTE | 2022-06-26 16:32 | CASEMGMT ---
Social Work Met with patient to complete initial assessment. Introduced self and role. Verified/updated contacts. Discussed code status and MOLST form. Pt confirms full code. MOLST completed, placed in Dr folder. Educated to Medicare benefit. Encouraged to contact secondary insurance to ensure copay coverage. Pts goal is to return home at PLOF. Pt has supportive friends/cousins, but no one to physically assist pt with anything at home. SW to continue to follow for DC planning. Flor Hemphill, FAMILY RESOURCE MANAGEMENT PROFESSOR INTERNAL REVENUE SERVICE AGENT
[2022-06-26] MEDS: Simvastatin 10 MG Tablet PO (21:27)
[2022-06-26] MEDS: Pantoprazole Sodium 40 MG Tablet PO (21:27)
[2022-06-26 21:55] VITALS: PULSE 67; RESP 16; O2SAT 94
[2022-06-27] MEDS: hydroCHLOROthiazide 25 MG Tablet PO (06:11)
[2022-06-27] MEDS: Doxycycline 100 MG CAPSULE PO (06:11)
[2022-06-27] MEDS: Acetaminophen 500 MG Tablet 1000 MG PO ×3 (06:11→21:09)
[2022-06-27] MEDS: Cholecalciferol (VIT D3) 25 MCG TABLET (1,000 UNITS) 50 MCG PO ×2 (06:11→17:45)
[2022-06-27] MEDS: Loratadine 10 MG Tablet PO (06:11)
[2022-06-27 06:13] VITALS: BP 121/57; PULSE 66
[2022-06-27 08:22] VITALS: O2SAT 92
[2022-06-27 08:30] VITALS: O2SAT 91
[2022-06-27] MEDS: Menthol/Lanolin/Calamine/Znox 113 GM Tube 1 APPLIC TOPICAL (08:32)
[2022-06-27 09:35] VITALS: PULSE 73; RESP 18; O2SAT 92
[2022-06-27 14:00] VITALS: BP 126/61; PULSE 72; RESP 18; TEMP 36.8; O2SAT 96
[2022-06-27] MEDS: Jantoven 2 MG Tablet PO (17:44)
[2022-06-27] MEDS: Pantoprazole Sodium 40 MG Tablet PO (21:09)
[2022-06-27] MEDS: Simvastatin 10 MG Tablet PO (21:10)
[2022-06-28] MEDS: Acetaminophen 500 MG Tablet 1000 MG PO ×3 (05:43→20:56)
[2022-06-28] MEDS: Cholecalciferol (VIT D3) 25 MCG TABLET (1,000 UNITS) 50 MCG PO ×2 (05:43→16:51)
[2022-06-28] MEDS: Senna/Docusate Sodium 1 Tablet PO ×2 (05:44→16:51)
[2022-06-28] MEDS: hydroCHLOROthiazide 25 MG Tablet PO (05:44)
[2022-06-28] MEDS: Doxycycline 100 MG CAPSULE PO (05:44)
[2022-06-28] MEDS: Loratadine 10 MG Tablet PO (05:44)
[2022-06-28] MEDS: Menthol/Lanolin/Calamine/Znox 113 GM Tube 1 APPLIC TOPICAL ×2 (05:46→16:51)
[2022-06-28 07:50] VITALS: O2SAT 86
--- NOTE | 2022-06-28 09:47 | CPS ---
smi was given to patient by nurse. verbal understanding discussed.
[2022-06-28 10:00] VITALS: PULSE 74; RESP 16; O2SAT 97
[2022-06-28 10:19] VITALS: O2SAT 95
--- NOTE | 2022-06-28 10:22 | CASEMGMT ---
Social Work IDT met with patient and cousin for care plan meeting. Discussed patient's progress in PT/OT/SN. Educated to Medicare benefit. Pts goal is to return home alone at OF. Pt does not physically get assistance at home. Pt has old O2 but working on weaning to a lower flow. New cespedes and wounds. Goal is to get those resolved prior to DC. SW to continue to follow for discharge planning. Flor Hemphill, BURLAP ROLL COVERER NEGOTIATIONS DIRECTOR
[2022-06-28 14:00] VITALS: BP 122/50; PULSE 75; RESP 16; TEMP 36.8; O2SAT 96
[2022-06-28] MEDS: Jantoven 2 MG Tablet PO (16:50)
[2022-06-28] MEDS: Pantoprazole Sodium 40 MG Tablet PO (20:56)
[2022-06-28] MEDS: Simvastatin 10 MG Tablet PO (20:56)
[2022-06-29] MEDS: hydroCHLOROthiazide 25 MG Tablet PO (05:47)
[2022-06-29] MEDS: Loratadine 10 MG Tablet PO (05:47)
[2022-06-29] MEDS: Acetaminophen 500 MG Tablet 1000 MG PO ×3 (05:47→22:22)
[2022-06-29] MEDS: Cholecalciferol (VIT D3) 25 MCG TABLET (1,000 UNITS) 50 MCG PO ×2 (05:47→16:07)
[2022-06-29] MEDS: Doxycycline 100 MG CAPSULE PO (05:47)
[2022-06-29] MEDS: Senna/Docusate Sodium 1 Tablet PO ×2 (05:47→16:08)
[2022-06-29] MEDS: Menthol/Lanolin/Calamine/Znox 113 GM Tube 1 APPLIC TOPICAL ×2 (05:48→16:08)
[2022-06-29 05:52] VITALS: BP 114/46; PULSE 66
[2022-06-29 05:54] LABS: International Normalized Ratio 1.3; Prothrombin Time (Protime)PT. 15.9 SECONDS (11.7-14.9)
[2022-06-29 07:25] VITALS: O2SAT 95
[2022-06-29 14:00] VITALS: BP 127/63; PULSE 65; RESP 16; TEMP 36.1; O2SAT 99
[2022-06-29 14:48] VITALS: O2SAT 92
--- NOTE | 2022-06-29 16:02 | NURSING ---
Per patient and documentation no issues with urinary retention. Patient denies any difficulty voiding. She does not meet criteria to leave cespedes in place. Catheter removed at 1600. Patient tolerated fine. Educated her about staff scanning bladder q8 to monitor for retention.
[2022-06-29] MEDS: Jantoven 2 MG Tablet PO (16:07)
[2022-06-29] MEDS: Pantoprazole Sodium 40 MG Tablet PO (22:22)
[2022-06-29] MEDS: Simvastatin 10 MG Tablet PO (22:22)
[2022-06-29 22:27] VITALS: PULSE 62; RESP 18; O2SAT 96
[2022-06-30] MEDS: hydroCHLOROthiazide 25 MG Tablet PO (07:01)
[2022-06-30] MEDS: Loratadine 10 MG Tablet PO (07:01)
[2022-06-30] MEDS: Doxycycline 100 MG CAPSULE PO (07:01)
[2022-06-30] MEDS: Senna/Docusate Sodium 1 Tablet PO ×2 (07:01→16:26)
[2022-06-30] MEDS: Cholecalciferol (VIT D3) 25 MCG TABLET (1,000 UNITS) 50 MCG PO ×2 (07:01→16:26)
[2022-06-30] MEDS: Acetaminophen 500 MG Tablet 1000 MG PO ×2 (07:01→12:51)
[2022-06-30] MEDS: Menthol/Lanolin/Calamine/Znox 113 GM Tube 1 APPLIC TOPICAL ×2 (07:03→16:27)
--- NOTE | 2022-06-30 13:37 | CASEMGMT ---
Social Work BIMS () and PHQ-9 (02/10) completed for MDS assessment. Explored responses further. Pt expressed feeling down being admitted and bad about self doing having this happen to her. Validated feelings. Pt expressed motivation for improvement and returning home. Flor Hemphill, JUNIOR LOAN PROCESSOR COMMUNITY SERVICE WORKER
[2022-06-30 14:00] VITALS: BP 130/60; PULSE 72; RESP 16; TEMP 36.3; O2SAT 97
[2022-07-01] MEDS: Menthol/Lanolin/Calamine/Znox 113 GM Tube 1 APPLIC TOPICAL ×2 (05:41→17:51)
[2022-07-01] MEDS: Acetaminophen 500 MG Tablet 1000 MG PO ×3 (05:42→21:35)
[2022-07-01] MEDS: Loratadine 10 MG Tablet PO (05:43)
[2022-07-01] MEDS: Doxycycline 100 MG CAPSULE PO (05:43)
[2022-07-01] MEDS: Senna/Docusate Sodium 1 Tablet PO ×2 (05:43→17:53)
[2022-07-01] MEDS: Cholecalciferol (VIT D3) 25 MCG TABLET (1,000 UNITS) 50 MCG PO ×2 (05:44→17:54)
[2022-07-01] MEDS: hydroCHLOROthiazide 25 MG Tablet PO (05:44)
[2022-07-01 07:48] VITALS: O2SAT 94
[2022-07-01 14:00] VITALS: BP 140/59; PULSE 58; RESP 20; TEMP 36.2; O2SAT 98
--- NOTE | 2022-07-01 15:58 | NURSING ---
DRESSING CHANGED TO RIGHT LOWER POST LEG DUE TO LAST ONE FELL OFF.
[2022-07-01] MEDS: Pantoprazole Sodium 40 MG Tablet PO (21:35)
[2022-07-01] MEDS: Simvastatin 10 MG Tablet PO (21:35)
[2022-07-02] MEDS: Menthol/Lanolin/Calamine/Znox 113 GM Tube 1 APPLIC TOPICAL ×2 (06:55→17:53)
[2022-07-02] MEDS: Doxycycline 100 MG CAPSULE PO (06:55)
[2022-07-02] MEDS: Loratadine 10 MG Tablet PO (06:55)
[2022-07-02] MEDS: Senna/Docusate Sodium 1 Tablet PO ×2 (06:55→17:54)
[2022-07-02] MEDS: Cholecalciferol (VIT D3) 25 MCG TABLET (1,000 UNITS) 50 MCG PO ×2 (06:56→17:54)
[2022-07-02] MEDS: Acetaminophen 500 MG Tablet 1000 MG PO ×3 (06:57→21:46)
[2022-07-02 07:35] VITALS: O2SAT 97
[2022-07-02] MEDS: hydroCHLOROthiazide 25 MG Tablet PO (09:03)
[2022-07-02 09:04] VITALS: BP 123/57; PULSE 66
[2022-07-02 09:05] VITALS: PULSE 63; RESP 18; O2SAT 96
[2022-07-02 14:00] VITALS: BP 121/41; PULSE 64; RESP 16; TEMP 36.9; O2SAT 97
[2022-07-02 17:52] VITALS: BP 140/66
[2022-07-02] MEDS: Simvastatin 10 MG Tablet PO (21:47)
[2022-07-02] MEDS: Pantoprazole Sodium 40 MG Tablet PO (21:47)
[2022-07-03 05:28] LABS: Absolute Lymphocyte Count 1.34 X10^3/uL (0.83-4.51); Absolute Neutrophil Count 2.7 X10^3/uL (2.0-7.7); Basophil# 0.02 X10^3/uL; Basophil% 0.4 % (0-1); Eosinophil# 0.29 X10^3/uL; Hematocrit 38.5 % (37-47); Lymphocyte # 1.34 X10^3/ul (0.83-4.51); Lymphocyte % 27.7 % (19-41); Mean Corp Hgb Conc 31.2 g/dL (32-36); Mean Corpuscular Hgb 30.2 pg (27.0-32.0); Mean Platelet Vol. 8.9 fl (6.2-12.0); Monocyte# 0.47 X10^3/uL; Monocyte% 9.7 % (0-10); NRBC Flagged by Analyzer 0 % (0-5); Neutrophil % 55.8 % (47-70); Platelet Count 178 K/mm3 (150-450); RBC Distribution Width CV 12.1 % (11.6-14.6); RBC Distribution Width SD 43.1 fl (35.1-43.9); Red Blood Count 3.97 M/mm3 (4.2-5.4); White Blood Count 4.8 K/mm3 (4.4-11.0)
[2022-07-03 05:52] LABS: International Normalized Ratio 1.1; Prothrombin Time (Protime)PT. 14.1 SECONDS (11.7-14.9)
[2022-07-03] MEDS: Acetaminophen 500 MG Tablet 1000 MG PO ×3 (05:57→21:53)
[2022-07-03] MEDS: Cholecalciferol (VIT D3) 25 MCG TABLET (1,000 UNITS) 50 MCG PO ×2 (05:58→17:42)
[2022-07-03] MEDS: Loratadine 10 MG Tablet PO (05:58)
[2022-07-03] MEDS: hydroCHLOROthiazide 25 MG Tablet PO (05:59)
[2022-07-03] MEDS: Doxycycline 100 MG CAPSULE PO (05:59)
[2022-07-03] MEDS: Menthol/Lanolin/Calamine/Znox 113 GM Tube 1 APPLIC TOPICAL ×2 (05:59→17:43)
[2022-07-03 06:01] VITALS: BP 104/44; PULSE 67
[2022-07-03 06:37] LABS: Anion Gap 3 (5-15); BUN 16 mg/dL (7-18); BUN/Creat Ratio 36.9 RATIO (10-20); Chloride 96 mmol/L (98-107); Creatinine, Serum 0.43 mg/dL (0.55-1.02); EST Glomerular Filtration Rate 149 mL/min (>60); Est Glom Filt Rate - Afr Amer 180 mL/min (>60); Estimated Creatinine Clearance 39.39 ml/min; Glucose 97 mg/dL (74-106); Potassium 3.9 mmol/L (3.5-5.1); Sodium Level 138 mmol/L (136-145)
[2022-07-03 07:20] VITALS: O2SAT 94
--- NOTE | 2022-07-03 09:19 | NURSING ---
Record Maker Note; MDS complete for 07/02
[2022-07-03] MEDS: Tuberculin,Purif.prot.deriv. 50 TU/ML Vial 0.1 ML ID (10:37)
[2022-07-03 13:49] VITALS: BP 114/62; PULSE 72; RESP 18; TEMP 36.1; O2SAT 97
[2022-07-03 14:16] VITALS: O2SAT 97
--- NOTE | 2022-07-03 14:31 | WOUNDNOTE ---
wound photo: right posterior lower leg
[2022-07-03] MEDS: Senna/Docusate Sodium 1 Tablet PO (17:42)
[2022-07-03] MEDS: Pantoprazole Sodium 40 MG Tablet PO (21:53)
[2022-07-03] MEDS: Simvastatin 10 MG Tablet PO (21:53)
[2022-07-03 22:24] VITALS: PULSE 69; RESP 18; O2SAT 96
--- NOTE | 2022-07-04 05:19 | PCA ---
patient is not ringing to use the bathroom instead she is just soaking herself. when going in to check on her at 5am conveyor worker asked if she was wet and needed changed she replied most definitely upon checking her she was extremely soaked in urine had to do a bed change as well
[2022-07-04] MEDS: Senna/Docusate Sodium 1 Tablet PO ×2 (05:25→17:16)
[2022-07-04] MEDS: Acetaminophen 500 MG Tablet 1000 MG PO ×3 (05:25→20:48)
[2022-07-04] MEDS: Loratadine 10 MG Tablet PO (05:25)
[2022-07-04] MEDS: Doxycycline 100 MG CAPSULE PO (05:25)
[2022-07-04] MEDS: Cholecalciferol (VIT D3) 25 MCG TABLET (1,000 UNITS) 50 MCG PO ×2 (05:26→17:16)
[2022-07-04 06:21] VITALS: BP 126/68; PULSE 68
[2022-07-04] MEDS: Menthol/Lanolin/Calamine/Znox 113 GM Tube 1 APPLIC TOPICAL ×2 (06:49→17:17)
[2022-07-04] MEDS: hydroCHLOROthiazide 25 MG Tablet PO (06:49)
[2022-07-04 09:27] VITALS: O2SAT 94
[2022-07-04 10:10] VITALS: PULSE 71; RESP 18; O2SAT 97
[2022-07-04 14:00] VITALS: BP 120/56; PULSE 97; RESP 16; TEMP 36.2; O2SAT 99
[2022-07-04 14:42] VITALS: O2SAT 97
[2022-07-04] MEDS: Simvastatin 10 MG Tablet PO (20:48)
[2022-07-04] MEDS: Pantoprazole Sodium 40 MG Tablet PO (20:48)
--- NOTE | 2022-07-05 04:01 | PCA ---
when doing rounds chilling hood operator asked if patient was wet she said probably, upon checking her she was dry. patient stated she could pee if we wanted her to and chilling hood operator said no thats ok and asked her if she wanted the bed moreno to which she replied no i don't want it and i won't use it. patient then asked chilling hood operator to come back later because she would be wet.
[2022-07-05] MEDS: Cholecalciferol (VIT D3) 25 MCG TABLET (1,000 UNITS) 50 MCG PO ×2 (06:31→17:53)
[2022-07-05] MEDS: Senna/Docusate Sodium 1 Tablet PO ×2 (06:31→17:52)
[2022-07-05] MEDS: hydroCHLOROthiazide 25 MG Tablet PO (06:31)
[2022-07-05] MEDS: Loratadine 10 MG Tablet PO (06:31)
[2022-07-05] MEDS: Doxycycline 100 MG CAPSULE PO (06:31)
[2022-07-05] MEDS: Acetaminophen 500 MG Tablet 1000 MG PO ×3 (06:32→23:45)
[2022-07-05] MEDS: Menthol/Lanolin/Calamine/Znox 113 GM Tube 1 APPLIC TOPICAL ×2 (08:52→23:44)
[2022-07-05 14:00] VITALS: BP 125/60; PULSE 63; RESP 18; TEMP 36.5; O2SAT 97
[2022-07-05] MEDS: Pantoprazole Sodium 40 MG Tablet PO (23:45)
[2022-07-05] MEDS: Simvastatin 10 MG Tablet PO (23:45)
[2022-07-05 23:54] VITALS: PULSE 73; RESP 16; O2SAT 97
[2022-07-06] MEDS: Cholecalciferol (VIT D3) 25 MCG TABLET (1,000 UNITS) 50 MCG PO ×2 (05:39→17:52)
[2022-07-06] MEDS: Menthol/Lanolin/Calamine/Znox 113 GM Tube 1 APPLIC TOPICAL ×2 (05:39→17:52)
[2022-07-06] MEDS: hydroCHLOROthiazide 25 MG Tablet PO (05:40)
[2022-07-06] MEDS: Senna/Docusate Sodium 1 Tablet PO ×2 (05:40→17:52)
[2022-07-06] MEDS: Loratadine 10 MG Tablet PO (05:40)
[2022-07-06] MEDS: Doxycycline 100 MG CAPSULE PO (05:40)
[2022-07-06] MEDS: Acetaminophen 500 MG Tablet 1000 MG PO ×3 (05:40→20:48)
[2022-07-06 05:57] LABS: International Normalized Ratio 1.3; Prothrombin Time (Protime)PT. 15.6 SECONDS (11.7-14.9)
[2022-07-06 10:00] VITALS: RESP 16; O2SAT 95
[2022-07-06 10:57] VITALS: O2SAT 97
--- NOTE | 2022-07-06 11:02 | MDS.RN ---
Information for the mds was obtained from review of the clinical record, interview of resident, staff, and direct observation of resident's care.
[2022-07-06 14:00] VITALS: BP 131/54; PULSE 64; RESP 19; TEMP 36.8; O2SAT 97
[2022-07-06] MEDS: Simvastatin 10 MG Tablet PO (20:48)
[2022-07-06] MEDS: Pantoprazole Sodium 40 MG Tablet PO (20:49)
[2022-07-07] MEDS: Cholecalciferol (VIT D3) 25 MCG TABLET (1,000 UNITS) 50 MCG PO ×2 (05:59→17:49)
[2022-07-07] MEDS: hydroCHLOROthiazide 25 MG Tablet PO (05:59)
[2022-07-07] MEDS: Acetaminophen 500 MG Tablet 1000 MG PO ×3 (05:59→20:29)
[2022-07-07] MEDS: Senna/Docusate Sodium 1 Tablet PO ×2 (06:00→17:49)
[2022-07-07] MEDS: Doxycycline 100 MG CAPSULE PO (06:00)
[2022-07-07] MEDS: Loratadine 10 MG Tablet PO (06:00)
[2022-07-07] MEDS: Menthol/Lanolin/Calamine/Znox 113 GM Tube 1 APPLIC TOPICAL ×2 (06:00→17:48)
[2022-07-07 06:38] VITALS: BP 120/58; PULSE 67
[2022-07-07 14:00] VITALS: BP 123/48; PULSE 65; RESP 18; TEMP 36.7; O2SAT 95
[2022-07-07 20:29] VITALS: PULSE 75; RESP 16; O2SAT 95
[2022-07-07] MEDS: Pantoprazole Sodium 40 MG Tablet PO (20:29)
[2022-07-07] MEDS: Simvastatin 10 MG Tablet PO (20:30)
[2022-07-08] MEDS: Loratadine 10 MG Tablet PO (05:30)
[2022-07-08] MEDS: Cholecalciferol (VIT D3) 25 MCG TABLET (1,000 UNITS) 50 MCG PO ×2 (05:30→17:30)
[2022-07-08] MEDS: Acetaminophen 500 MG Tablet 1000 MG PO ×3 (05:30→20:19)
[2022-07-08] MEDS: Senna/Docusate Sodium 1 Tablet PO ×2 (05:30→17:30)
[2022-07-08] MEDS: hydroCHLOROthiazide 25 MG Tablet PO (05:30)
[2022-07-08] MEDS: Doxycycline 100 MG CAPSULE PO (05:30)
[2022-07-08] MEDS: Menthol/Lanolin/Calamine/Znox 113 GM Tube 1 APPLIC TOPICAL ×2 (05:36→17:28)
[2022-07-08 07:48] VITALS: O2SAT 95
[2022-07-08] MEDS: Petrolatum 33% Tube 1 APPLIC TOPICAL (13:34)
[2022-07-08 14:00] VITALS: BP 129/55; PULSE 70; RESP 18; TEMP 36.6; O2SAT 95
[2022-07-08] MEDS: Pantoprazole Sodium 40 MG Tablet PO (20:19)
[2022-07-08] MEDS: Simvastatin 10 MG Tablet PO (20:19)
[2022-07-09] MEDS: Cholecalciferol (VIT D3) 25 MCG TABLET (1,000 UNITS) 50 MCG PO ×2 (05:42→17:01)
[2022-07-09] MEDS: Acetaminophen 500 MG Tablet 1000 MG PO ×3 (05:42→20:42)
[2022-07-09] MEDS: Senna/Docusate Sodium 1 Tablet PO ×2 (05:42→17:01)
[2022-07-09] MEDS: hydroCHLOROthiazide 25 MG Tablet PO (05:43)
[2022-07-09] MEDS: Loratadine 10 MG Tablet PO (05:43)
[2022-07-09] MEDS: Doxycycline 100 MG CAPSULE PO (05:43)
[2022-07-09] MEDS: Menthol/Lanolin/Calamine/Znox 113 GM Tube 1 APPLIC TOPICAL ×2 (05:43→17:02)
[2022-07-09 05:45] VITALS: BP 123/66; PULSE 80
[2022-07-09 10:27] VITALS: PULSE 69; RESP 20
[2022-07-09 14:00] VITALS: BP 126/53; PULSE 70; RESP 14; TEMP 37.3; O2SAT 95
[2022-07-09] MEDS: Pantoprazole Sodium 40 MG Tablet PO (20:42)
[2022-07-09] MEDS: Simvastatin 10 MG Tablet PO (20:42)
[2022-07-09] MEDS: Calcium Carbonate 500 MG Tablet PO (20:43)
[2022-07-10] MEDS: Doxycycline 100 MG CAPSULE PO (05:41)
[2022-07-10] MEDS: Acetaminophen 500 MG Tablet 1000 MG PO ×3 (05:41→21:13)
[2022-07-10] MEDS: Cholecalciferol (VIT D3) 25 MCG TABLET (1,000 UNITS) 50 MCG PO ×2 (05:41→17:26)
[2022-07-10] MEDS: Senna/Docusate Sodium 1 Tablet PO ×2 (05:41→17:26)
[2022-07-10] MEDS: Loratadine 10 MG Tablet PO (05:41)
[2022-07-10] MEDS: hydroCHLOROthiazide 25 MG Tablet PO (05:44)
[2022-07-10 06:33] LABS: Absolute Lymphocyte Count 1.38 X10^3/uL (0.83-4.51); Absolute Neutrophil Count 3.7 X10^3/uL (2.0-7.7); Basophil# 0.02 X10^3/uL; Basophil% 0.3 % (0-1); Eosinophil# 0.23 X10^3/uL; Eosinophils% 3.9 % (0-5); Hematocrit 38.1 % (37-47); Hemoglobin 12.1 g/dL (12.0-15.0); Lymphocyte # 1.38 X10^3/ul (0.83-4.51); Lymphocyte % 23.4 % (19-41); Mean Corp Hgb Conc 31.8 g/dL (32-36); Mean Corpuscular Hgb 30.6 pg (27.0-32.0); Mean Corpuscular Volume 96.2 fL (81-99); Monocyte# 0.58 X10^3/uL; Monocyte% 9.8 % (0-10); NRBC Flagged by Analyzer 0 % (0-5); Neutrophil # 3.69 X10^3/uL (2.7-7.7); Neutrophil % 62.4 % (47-70); Platelet Count 170 K/mm3 (150-450); RBC Distribution Width CV 12.3 % (11.6-14.6); RBC Distribution Width SD 43.3 fl (35.1-43.9); Red Blood Count 3.96 M/mm3 (4.2-5.4); White Blood Count 5.9 K/mm3 (4.4-11.0)
[2022-07-10 06:46] LABS: International Normalized Ratio 1.6; Prothrombin Time (Protime)PT. 18.5 SECONDS (11.7-14.9)
[2022-07-10 06:53] LABS: Anion Gap 4 (5-15); BUN 22 mg/dL (7-18); BUN/Creat Ratio 40.9 RATIO (10-20); Calcium,Total 8.7 mg/dL (8.5-10.1); Chloride 96 mmol/L (98-107); Creatinine, Serum 0.54 mg/dL (0.55-1.02); EST Glomerular Filtration Rate 116 mL/min (>60); Est Glom Filt Rate - Afr Amer 141 mL/min (>60); Estimated Creatinine Clearance 39.39 ml/min; Glucose 86 mg/dL (74-106); Potassium 3.8 mmol/L (3.5-5.1); Sodium Level 138 mmol/L (136-145)
[2022-07-10 08:05] VITALS: O2SAT 97
[2022-07-10] MEDS: Menthol/Lanolin/Calamine/Znox 113 GM Tube 1 APPLIC TOPICAL ×2 (08:21→17:25)
[2022-07-10 08:45] VITALS: O2SAT 96
[2022-07-10 14:00] VITALS: BP 110/59; PULSE 54; RESP 18; TEMP 36.3; O2SAT 97
[2022-07-10 17:28] VITALS: BP 126/57; PULSE 58
[2022-07-10] MEDS: Pantoprazole Sodium 40 MG Tablet PO (21:13)
[2022-07-10] MEDS: Simvastatin 10 MG Tablet PO (21:13)
[2022-07-10 23:43] VITALS: PULSE 52; RESP 17; O2SAT 95
[2022-07-11] MEDS: Doxycycline 100 MG CAPSULE PO (05:57)
[2022-07-11] MEDS: Cholecalciferol (VIT D3) 25 MCG TABLET (1,000 UNITS) 50 MCG PO ×2 (05:57→17:46)
[2022-07-11] MEDS: Senna/Docusate Sodium 1 Tablet PO ×2 (05:57→17:46)
[2022-07-11] MEDS: Loratadine 10 MG Tablet PO (05:57)
[2022-07-11] MEDS: hydroCHLOROthiazide 25 MG Tablet PO (05:57)
[2022-07-11] MEDS: Acetaminophen 500 MG Tablet 1000 MG PO ×3 (06:01→20:53)
[2022-07-11 07:30] VITALS: O2SAT 98
[2022-07-11] MEDS: Menthol/Lanolin/Calamine/Znox 113 GM Tube 1 APPLIC TOPICAL ×2 (09:49→17:46)
[2022-07-11 09:50] VITALS: PULSE 69; RESP 18; O2SAT 94
[2022-07-11 13:51] VITALS: BP 118/36; PULSE 77; RESP 16; TEMP 36.4; O2SAT 97
[2022-07-11 15:13] VITALS: O2SAT 96
[2022-07-11] MEDS: Pantoprazole Sodium 40 MG Tablet PO (20:52)
[2022-07-11] MEDS: Simvastatin 10 MG Tablet PO (20:53)
[2022-07-12] MEDS: Loratadine 10 MG Tablet PO (06:03)
[2022-07-12] MEDS: hydroCHLOROthiazide 25 MG Tablet PO (06:03)
[2022-07-12] MEDS: Cholecalciferol (VIT D3) 25 MCG TABLET (1,000 UNITS) 50 MCG PO ×2 (06:03→17:48)
[2022-07-12] MEDS: Senna/Docusate Sodium 1 Tablet PO ×2 (06:03→17:48)
[2022-07-12] MEDS: Acetaminophen 500 MG Tablet 1000 MG PO ×3 (06:03→19:58)
[2022-07-12] MEDS: Doxycycline 100 MG CAPSULE PO (06:03)
[2022-07-12] MEDS: Menthol/Lanolin/Calamine/Znox 113 GM Tube 1 APPLIC TOPICAL ×2 (06:04→17:49)
[2022-07-12 06:05] VITALS: BP 121/51; PULSE 66
[2022-07-12 09:17] VITALS: O2SAT 96
[2022-07-12 09:59] VITALS: O2SAT 97
[2022-07-12 13:30] VITALS: BP 116/54; PULSE 70; RESP 18; TEMP 36.5; O2SAT 96
[2022-07-12] MEDS: Simvastatin 10 MG Tablet PO (19:58)
[2022-07-12] MEDS: Pantoprazole Sodium 40 MG Tablet PO (19:58)
[2022-07-12 20:08] VITALS: O2SAT 93
[2022-07-13] MEDS: Cholecalciferol (VIT D3) 25 MCG TABLET (1,000 UNITS) 50 MCG PO ×2 (05:20→18:07)
[2022-07-13] MEDS: Doxycycline 100 MG CAPSULE PO (05:21)
[2022-07-13] MEDS: Senna/Docusate Sodium 1 Tablet PO ×2 (05:21→18:07)
[2022-07-13] MEDS: Acetaminophen 500 MG Tablet 1000 MG PO ×3 (05:21→21:33)
[2022-07-13] MEDS: hydroCHLOROthiazide 25 MG Tablet PO (05:21)
[2022-07-13] MEDS: Loratadine 10 MG Tablet PO (05:22)
[2022-07-13] MEDS: Menthol/Lanolin/Calamine/Znox 113 GM Tube 1 APPLIC TOPICAL ×2 (05:24→18:05)
[2022-07-13 06:00] LABS: Prothrombin Time (Protime)PT. 22.3 SECONDS (11.7-14.9)
[2022-07-13 10:16] VITALS: O2SAT 96
[2022-07-13 11:30] VITALS: PULSE 67; RESP 18; O2SAT 97
[2022-07-13 14:00] VITALS: BP 132/74; PULSE 56; RESP 15; TEMP 36.4; O2SAT 98
[2022-07-13] MEDS: Simvastatin 10 MG Tablet PO (21:33)
[2022-07-13] MEDS: Pantoprazole Sodium 40 MG Tablet PO (21:33)
[2022-07-14] MEDS: Doxycycline 100 MG CAPSULE PO (05:44)
[2022-07-14] MEDS: Loratadine 10 MG Tablet PO (05:44)
[2022-07-14] MEDS: hydroCHLOROthiazide 25 MG Tablet PO (05:44)
[2022-07-14] MEDS: Senna/Docusate Sodium 1 Tablet PO ×2 (05:44→17:39)
[2022-07-14] MEDS: Cholecalciferol (VIT D3) 25 MCG TABLET (1,000 UNITS) 50 MCG PO ×2 (05:44→17:39)
[2022-07-14] MEDS: Acetaminophen 500 MG Tablet 1000 MG PO ×3 (05:44→21:29)
[2022-07-14] MEDS: Menthol/Lanolin/Calamine/Znox 113 GM Tube 1 APPLIC TOPICAL ×2 (05:47→17:39)
[2022-07-14 08:34] VITALS: PULSE 67; RESP 16; O2SAT 97
[2022-07-14 11:00] VITALS: O2SAT 96
--- NOTE | 2022-07-14 11:00 | PCM.CONS.GEN ---
Assessment & Plan Assessment/Plan (1) Tinea unguium: PLAN: Patient examined and evaluated. Recommend compression elevation exercise for edema management. Toenails [id number] on the right and left foot were debrided in length and thickness mechanically without incident. Will sign off patient. Patient follows with Dr. Delatorre at [facility] typically. Upon discharge if she requires further podiatric management or information is in the chart she would qualify for nail care every 9 weeks. (2) Pain in right toe(s): (3) Pain in left toe(s): HPI Consult Data Date of Consult: 07/14/22 HPI Narrative HPI Narrative: Patient seen bedside for routine nail care. Patient typically sees an outpatient client solutions manager but has not seen them due to placement and transitional care unit. Patient denies any other issues at this time. [facility] Medical History BiPAP (biphasic positive airway pressure) dependence Bleeding ulcer Essential hypertension GERD (gastroesophageal reflux disease) Left anterior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 senior living current use of anticoagulant Non-smoker On home oxygen therapy JUSTINA on CPAP Paroxysmal atrial fibrillation Poliomyelitis Pulmonary hypertension Pure hypercholesterolemia Right bundle branch block (RBBB) Home Medications cetirizine 10 mg capsule 10 mg PO DAILY allergies 11/10/16 [History Last Taken 11/14/16 07:30] cholecalciferol (vitamin D3) 50 mcg (2,000 unit) capsule 2,000 unit PO BID supplement 11/10/16 [History Last Taken Unknown] fluticasone propionate 50 mcg/actuation nasal spray,suspension 1 spray NASAL DAILY PRN Allergies 11/10/16 [History Last Taken Unknown] doxycycline hyclate 100 mg tablet 100 mg PO DAILY antibiotic 10/03/18 [History Last Taken Unknown] simvastatin 10 mg tablet 10 mg PO QHS cholesterol 10/03/18 [History Last Taken Unknown] acetaminophen 650 mg tablet,extended release (Tylenol Arthritis Pain) 650 mg PO Q8H pain 11/24/19 [History Last Taken Unknown] lansoprazole 15 mg capsule,delayed release 30 mg PO QHS acid reflux 06/14/22 [History Last Taken Unknown] hydrochlorothiazide 25 mg tablet 25 mg PO DAILY BP 06/24/22 [History Last Taken Unknown] warfarin 4 mg tablet 4 mg PO SUFRSA PRN afib 06/24/22 [History Last Taken Unknown] warfarin 2 mg tablet 2 mg PO afib 06/25/22 [History Last Taken Unknown] Allergy/AdvReac Type Severity Reaction Status Date / Time DANIEL Inhibitors Allergy Hives Verified 06/14/22 14:52 ampicillin Allergy Hives Verified 06/14/22 14:52 atorvastatin [From Lipitor] Allergy Other Verified 06/14/22 14:52 chlorophyllin [From Panafil] Allergy Other Verified 06/14/22 14:52 oxycodone [From Percocet] Allergy Upset Verified 06/14/22 14:52 Stomach papain [From Panafil] Allergy Other Verified 06/14/22 14:52 propoxyphene Allergy Upset Verified 06/14/22 14:52 [From Darvocet-N] Stomach urea [From Panafil] Allergy Other Verified 06/14/22 14:52 spironolactone AdvReac Intermediate blood in Verified 06/14/22 14:52 urine Family History Mother CVA (cerebral vascular accident) Diabetes Cancer Bladder Grandmother Heart disease Surgical History History of bilateral cataract extraction History of tonsillectomy and adenoidectomy History of total knee replacement History of total right hip replacement Social History (Updated 06/25/22 @ 15:[address] Parish Anand MD) household members: none Smoking Status: Never smoker alcohol intake: never substance use type: does not use caffeine: Yes Type: coffee Number of servings: 3 Physical Exam Narrative Patient alert oriented to person place and time. Neurovascular status intact. There is diffuse edema to bilateral lower extremities. Hammertoes noted to digits 2 through 5 bilaterally with distal clavi to second digit bilaterally Some callusing to bilateral plantar medial heels. Toenails [id number] to the right and left foot are noted to be elongated thickened and dystrophic with subungual debris. Pain noted to the toenails as well. Lab / Micro Data Result Diagrams: 07/10/22 05:10 07/10/22 05:10
[2022-07-14 14:00] VITALS: BP 118/86; PULSE 66; RESP 16; TEMP 36.6; O2SAT 96
[2022-07-14] MEDS: Pantoprazole Sodium 40 MG Tablet PO (21:29)
[2022-07-14] MEDS: Simvastatin 10 MG Tablet PO (21:29)
[2022-07-15] MEDS: Loratadine 10 MG Tablet PO (05:00)
[2022-07-15] MEDS: hydroCHLOROthiazide 25 MG Tablet PO (05:00)
[2022-07-15] MEDS: Senna/Docusate Sodium 1 Tablet PO ×2 (05:00→17:37)
[2022-07-15] MEDS: Menthol/Lanolin/Calamine/Znox 113 GM Tube 1 APPLIC TOPICAL ×2 (05:00→17:38)
[2022-07-15] MEDS: Cholecalciferol (VIT D3) 25 MCG TABLET (1,000 UNITS) 50 MCG PO ×2 (05:00→17:37)
[2022-07-15] MEDS: Acetaminophen 500 MG Tablet 1000 MG PO ×3 (05:00→19:58)
[2022-07-15] MEDS: Doxycycline 100 MG CAPSULE PO (05:00)
[2022-07-15 13:49] VITALS: O2SAT 99
[2022-07-15 14:00] VITALS: BP 118/66; PULSE 64; RESP 16; TEMP 36.2; O2SAT 97
[2022-07-15] MEDS: Pantoprazole Sodium 40 MG Tablet PO (19:57)
[2022-07-15] MEDS: Simvastatin 10 MG Tablet PO (19:58)
[2022-07-15 20:39] VITALS: O2SAT 93
[2022-07-16] MEDS: Cholecalciferol (VIT D3) 25 MCG TABLET (1,000 UNITS) 50 MCG PO ×2 (05:36→18:33)
[2022-07-16] MEDS: Acetaminophen 500 MG Tablet 1000 MG PO ×3 (05:36→20:35)
[2022-07-16] MEDS: Loratadine 10 MG Tablet PO (05:36)
[2022-07-16] MEDS: Senna/Docusate Sodium 1 Tablet PO ×2 (05:37→18:33)
[2022-07-16] MEDS: Doxycycline 100 MG CAPSULE PO (05:37)
[2022-07-16] MEDS: hydroCHLOROthiazide 25 MG Tablet PO (05:37)
[2022-07-16] MEDS: Menthol/Lanolin/Calamine/Znox 113 GM Tube 1 APPLIC TOPICAL ×2 (05:38→18:38)
[2022-07-16 08:40] VITALS: PULSE 72; O2SAT 95
[2022-07-16 14:00] VITALS: BP 131/68; PULSE 68; RESP 16; TEMP 36.4; O2SAT 97
[2022-07-16] MEDS: Pantoprazole Sodium 40 MG Tablet PO (20:35)
[2022-07-16] MEDS: Simvastatin 10 MG Tablet PO (20:35)
[2022-07-17] MEDS: hydroCHLOROthiazide 25 MG Tablet PO (05:20)
[2022-07-17] MEDS: Doxycycline 100 MG CAPSULE PO (05:20)
[2022-07-17] MEDS: Cholecalciferol (VIT D3) 25 MCG TABLET (1,000 UNITS) 50 MCG PO ×2 (05:20→17:11)
[2022-07-17] MEDS: Menthol/Lanolin/Calamine/Znox 113 GM Tube 1 APPLIC TOPICAL ×2 (05:20→17:10)
[2022-07-17] MEDS: Senna/Docusate Sodium 1 Tablet PO ×2 (05:20→17:11)
[2022-07-17] MEDS: Loratadine 10 MG Tablet PO (05:20)
[2022-07-17] MEDS: Acetaminophen 500 MG Tablet 1000 MG PO ×3 (05:20→21:40)
[2022-07-17 06:03] LABS: Absolute Lymphocyte Count 1.53 X10^3/uL (0.83-4.51); Absolute Neutrophil Count 2.2 X10^3/uL (2.0-7.7); Basophil# 0.02 X10^3/uL; Basophil% 0.5 % (0-1); Eosinophil# 0.26 X10^3/uL; Eosinophils% 5.9 % (0-5); Hematocrit 38.1 % (37-47); Hemoglobin 11.9 g/dL (12.0-15.0); Lymphocyte # 1.53 X10^3/ul (0.83-4.51); Lymphocyte % 34.8 % (19-41); Mean Corp Hgb Conc 31.2 g/dL (32-36); Mean Corpuscular Hgb 30.5 pg (27.0-32.0); Mean Corpuscular Volume 97.7 fL (81-99); Mean Platelet Vol. 10.3 fl (6.2-12.0); Monocyte# 0.42 X10^3/uL; Monocyte% 9.5 % (0-10); NRBC Flagged by Analyzer 0 % (0-5); Neutrophil # 2.16 X10^3/uL (2.7-7.7); Neutrophil % 49.1 % (47-70); Platelet Count 128 K/mm3 (150-450); RBC Distribution Width CV 12.2 % (11.6-14.6); RBC Distribution Width SD 44.3 fl (35.1-43.9); White Blood Count 4.4 K/mm3 (4.4-11.0)
[2022-07-17 06:30] LABS: Anion Gap 3 (5-15); BUN 20 mg/dL (7-18); Chloride 97 mmol/L (98-107); Creatinine, Serum 0.53 mg/dL (0.55-1.02); EST Glomerular Filtration Rate 119 mL/min (>60); Est Glom Filt Rate - Afr Amer 144 mL/min (>60); Estimated Creatinine Clearance 39.39 ml/min; Glucose 89 mg/dL (74-106); Potassium 3.7 mmol/L (3.5-5.1); Sodium Level 140 mmol/L (136-145)
[2022-07-17 06:34] LABS: International Normalized Ratio 2.2; Prothrombin Time (Protime)PT. 23.7 SECONDS (11.7-14.9)
[2022-07-17 07:09] VITALS: O2SAT 98
[2022-07-17 09:30] VITALS: O2SAT 97
[2022-07-17 13:33] VITALS: BP 116/68; PULSE 63; RESP 18; TEMP 36.5; O2SAT 97
[2022-07-17] MEDS: Simvastatin 10 MG Tablet PO (21:40)
[2022-07-17] MEDS: Pantoprazole Sodium 40 MG Tablet PO (21:41)
[2022-07-17 22:00] VITALS: PULSE 86; RESP 18; O2SAT 91
[2022-07-18] MEDS: Menthol/Lanolin/Calamine/Znox 113 GM Tube 1 APPLIC TOPICAL ×2 (05:27→21:25)
[2022-07-18] MEDS: Cholecalciferol (VIT D3) 25 MCG TABLET (1,000 UNITS) 50 MCG PO ×2 (05:27→17:32)
[2022-07-18] MEDS: Doxycycline 100 MG CAPSULE PO (05:27)
[2022-07-18] MEDS: Loratadine 10 MG Tablet PO (05:27)
[2022-07-18] MEDS: hydroCHLOROthiazide 25 MG Tablet PO (05:27)
[2022-07-18] MEDS: Senna/Docusate Sodium 1 Tablet PO ×2 (05:28→17:32)
[2022-07-18] MEDS: Acetaminophen 500 MG Tablet 1000 MG PO ×3 (05:28→21:22)
[2022-07-18 09:00] VITALS: PULSE 82; RESP 18; O2SAT 96
--- NOTE | 2022-07-18 12:41 | NURSING ---
PER THERAPY, PT IS AB BRANDIE IN ROOM AFTER MORNING AND EVENING SETUP!!
[2022-07-18 13:16] VITALS: O2SAT 96
[2022-07-18 14:00] VITALS: BP 127/71; PULSE 70; RESP 18; TEMP 36.2; O2SAT 95
--- NOTE | 2022-07-18 15:52 | CASEMGMT ---
Social Work Discussed with IDT setting pt DC date. SW spoke with pt and GENETICS NURSE present in room. Pt agreeable to DC 07/25, with another week of therapy. Pt to purchase adaptive equipment for ADLs and requesting to practice car transfer simulation. GENETICS NURSE agreed and recommended HHC. Pt agreed. SW provided skilled HHC list with quality and resource data via [facility]Port Guide, but pt declined and requested [facility] H[facility]. SW made referral via phone and [facility]Port to [facility] PT/OT/SN/MACK. No DME needs. If pt can transfer in a car, her friends can transport. If not, SW to schedule w/c transport. Plan: DC home alone 07/25, [facility] PT/OT/SN/MACK KULDEEP Harry
--- NOTE | 2022-07-18 19:15 | DS.PCM_ITS ---
Providers Date of Admission: 06/25/22 Primary Care Physician: Dr. Jose Miguel Chairez MD Consultations 07/13/22 17:17 Consult: Podiatry Routine Consulting Provider: James Enciso Reason for Consult: General foot care. EMERGENT Consult: No MD Notified: Yes Date Notified: 07/14/22 Time Notified: 09:13 Method of Notification: Verbal Reason For Visit: WEAKNESS, FALLS Diagnosis Discharge Diagnosis (1) Tinea unguium: Status: Acute Code(s): B35.1 - Tinea unguium (2) Pain in right toe(s): Status: Acute Code(s): M79.674 - Pain in right toe(s) (3) Pain in left toe(s): Status: Acute Code(s): M79.675 - Pain in left toe(s) Plan 77 year old female with below past medical history hospitalized for weakness secondary to dehydration, admitted to TCU with debility, here for rehabilitation, strengthening, prior to discharge home alone. * Debility - PT/OT. * Pain - Tylenol 1000mg q8. * Bowel - senna/colace 1 tablet bid, MOM 30ml daily prn. * Adult immunization - Administer pneumonia vaccine, covid19 vaccine, flu v accine as appropriate. * DVT prophylaxis - Not necessary, on warfarin. * Vitamin D deficiency - D3 2000iu bid. * Prosthetic knee infection - Doxycycline 100mg daily forever. * Allergic rhinitis - Loratadine 10mg daily, Flonase 1 spray daily prn. * Hypertension - HCTZ 25mg daily. * GERD - Lansoprazole 30mg qhs. * Hyperlipidemia - Simvastatin 10mg qhs. * Atrial fibrillation - Warfarin 4mg 3 days/week, 2mg 3 days/week, follow INR. Medications at Discharge Home Medications cetirizine 10 mg capsule 10 mg PO DAILY allergies 11/10/16 cholecalciferol (vitamin D3) 50 mcg (2,000 unit) capsule 2,000 unit PO BID supplement 11/10/16 fluticasone propionate 50 mcg/actuation nasal spray,suspension 1 spray NASAL DAILY PRN Allergies 11/10/16 doxycycline hyclate 100 mg tablet 100 mg PO DAILY antibiotic 10/03/18 simvastatin 10 mg tablet 10 mg PO QHS cholesterol 10/03/18 lansoprazole 15 mg capsule,delayed release 30 mg PO QHS acid reflux 06/14/22 hydrochlorothiazide 25 mg tablet 25 mg PO DAILY BP 06/24/22 warfarin 4 mg tablet 4 mg PO SUFRSA PRN afib 06/24/22 warfarin 2 mg tablet 2 mg PO WE afib 06/25/22 acetaminophen 500 mg tablet 1,000 mg PO Q8 #0 tabs 07/18/22 Hospital Course Operations None Procedures None Summary of Care Provided Minutes Spent on Discharge: 35 Hospital Course: 77 year old female with below past medical history hospitalized for weakness s econdary to dehydration, admitted to TCU with debility, here for rehabilitation, strengthening, prior to discharge home alone. Discharge home alone 07/25/2022, [facility] Care PT/OT/SN/MACK. Physical Exam Const alert General Appearance: cooperative HEENT normocephalic Eyes PERRL and EOMs intact bilaterally Neck supple, no JVD and no carotid bruits Resp normal respiratory effort, normal air movement and clear to auscultation bilaterally Cardio regular rate and regular rhythm GI normal to inspection, nondistended, normoactive bowel sounds, non-tender and non-distended Extremity normal capillary refill General Extremity: Negative for edema Skin no rashes or lesions noted General Skin Exam: no breakdown Psych affect normal Appearance: appropriate Weight / BMI Weight Weight: 106.957 kg Body Mass Index (BMI) 44.6 ABG / Lab / Microbiology Data Result Diagrams: 07/17/22 05:18 07/17/22 05:18 Microbiology: Microbiology 06/29/22 05:33 Nasal Secretion SARS-CoV-2 Antigen (Rapid) - Final 06/27/22 05:18 Nasal Secretion SARS-CoV-2 Antigen (Rapid) - Final D/C Instructions Discharge Diet: No restrictions Discharge Activity: Return to Normal Activity, May Shower and Use Walker Weight Bearing Status: Weight bearing as tolerated Call your doctor if you observe: Fever of 101 or Higher, Inability to urinate, Inability to have a bowel movement, Shortness of breath, Dizziness, Fainting spells, Swelling in the ankles, Chest pain and Uncontrolled pain Additional Instructions: Discharge home alone 07/25/2022, [facility] Care PT/OT/SN/MACK. Meaningful Use Info Meaningful Use Diagnoses (Choose all that apply): None applicable Discharge Plan Admission Admit Date/Time: 06/25/22 13:50 Primary Reason for Your Visit: Debility. Attending Provider: Parish Anand Chi Primary Care Provider: Jose Miguel Chairez Consulting Providers: James Enciso Instructions Additional Instructions / Restrictions: Discharge home alone 07/25/2022, [facility] Care PT/OT/SN/MACK. Discharge Orders/Prescriptions Prescriptions: New acetaminophen 500 mg Tablet 1,000 mg PO Q8 Qty: 0 0RF Continued doxycycline hyclate 100 mg tablet 100 mg PO DAILY lansoprazole 15 mg capsule,delayed release(DR/EC) 30 mg PO QHS fluticasone propionate 1 SPRAY spray,suspension 1 spray NASAL DAILY PRN (Reason: Allergies) cholecalciferol (vitamin D3) 2,000 UNIT capsule 2,000 unit PO BID cetirizine 10 MG capsule 10 mg PO DAILY simvastatin 10 mg tablet 10 mg PO QHS warfarin 4 mg tablet 4 mg PO SUFRSA PRN (Reason: afib) Protocol: Dose Management Condition: Sunday Dose/Route: 4 mg Instruction: 1 x 4 mg tablet Condition: Sunday Dose/Route: 0 mg Instruction: 0 tablets Condition: Sunday Dose/Route: 2 mg Instruction: 0.5 x 4 mg tablets Condition: Sunday Dose/Route: 2 mg Instruction: 0.5 x 4 mg tablets Condition: Dose/Route: 2 mg Instruction: 0.5 x 4 mg tablets Condition: Sunday Dose/Route: 4 mg Instruction: 1 x 4 mg tablet Condition: Sunday Dose/Route: 4 mg Instruction: 1 x 4 mg tablet Protocol Text: Adjustment Start Date: Sunday06/19/22 INR Value: 4.1 INR Date: 06/19/22 Recheck Date: 06/26/22 hydrochlorothiazide 25 mg tablet 25 mg PO DAILY Rx Instructions: TAKE 1 TABLET BY MOUTH EVERY DAY warfarin 2 mg Tablet 2 mg PO Discontinued acetaminophen [Tylenol Arthritis Pain] 650 mg tablet extended release 650 mg PO Q8H Referrals / Follow Up: Jose Miguel Chairez MD [Primary Care Provider] - James Enciso DPM [Med Staff - Active Staff] - Disposition Disposition (needs filled in before D/C Order can be placed): Home Health Service
[2022-07-18] MEDS: Pantoprazole Sodium 40 MG Tablet PO (21:22)
[2022-07-18] MEDS: Simvastatin 10 MG Tablet PO (21:22)
[2022-07-19 06:35] VITALS: BP 130/61; PULSE 76
[2022-07-19] MEDS: Acetaminophen 500 MG Tablet 1000 MG PO ×3 (06:37→19:46)
[2022-07-19] MEDS: Loratadine 10 MG Tablet PO (06:38)
[2022-07-19] MEDS: Menthol/Lanolin/Calamine/Znox 113 GM Tube 1 APPLIC TOPICAL ×2 (06:38→17:24)
[2022-07-19] MEDS: Senna/Docusate Sodium 1 Tablet PO ×2 (06:38→17:21)
[2022-07-19] MEDS: Doxycycline 100 MG CAPSULE PO (06:38)
[2022-07-19] MEDS: Cholecalciferol (VIT D3) 25 MCG TABLET (1,000 UNITS) 50 MCG PO ×2 (06:38→17:21)
[2022-07-19] MEDS: hydroCHLOROthiazide 25 MG Tablet PO (06:38)
[2022-07-19 07:12] VITALS: O2SAT 91
[2022-07-19 07:14] VITALS: O2SAT 91
[2022-07-19 14:00] VITALS: BP 135/74; PULSE 78; RESP 16; TEMP 36.3; O2SAT 98
[2022-07-19] MEDS: Pantoprazole Sodium 40 MG Tablet PO (19:46)
[2022-07-19] MEDS: Simvastatin 10 MG Tablet PO (19:47)
[2022-07-19 19:53] VITALS: O2SAT 94
[2022-07-20] MEDS: Cholecalciferol (VIT D3) 25 MCG TABLET (1,000 UNITS) 50 MCG PO ×2 (05:07→17:32)
[2022-07-20] MEDS: Acetaminophen 500 MG Tablet 1000 MG PO ×3 (05:07→20:19)
[2022-07-20] MEDS: Menthol/Lanolin/Calamine/Znox 113 GM Tube 1 APPLIC TOPICAL ×2 (05:07→17:34)
[2022-07-20] MEDS: Senna/Docusate Sodium 1 Tablet PO ×2 (05:08→17:32)
[2022-07-20] MEDS: hydroCHLOROthiazide 25 MG Tablet PO (05:08)
[2022-07-20] MEDS: Loratadine 10 MG Tablet PO (05:08)
[2022-07-20] MEDS: Doxycycline 100 MG CAPSULE PO (05:08)
[2022-07-20 05:10] VITALS: BP 133/65; PULSE 70
[2022-07-20 06:05] LABS: Prothrombin Time (Protime)PT. 25.5 SECONDS (11.7-14.9)
[2022-07-20 06:06] LABS: International Normalized Ratio 2.4
[2022-07-20 14:00] VITALS: BP 143/78; PULSE 63; RESP 16; TEMP 36.6; O2SAT 97
[2022-07-20] MEDS: Simvastatin 10 MG Tablet PO (20:20)
[2022-07-20] MEDS: Pantoprazole Sodium 40 MG Tablet PO (20:21)
[2022-07-20 21:36] VITALS: O2SAT 94
[2022-07-21] MEDS: Cholecalciferol (VIT D3) 25 MCG TABLET (1,000 UNITS) 50 MCG PO ×2 (05:48→18:07)
[2022-07-21] MEDS: Acetaminophen 500 MG Tablet 1000 MG PO ×3 (05:48→22:11)
[2022-07-21] MEDS: Doxycycline 100 MG CAPSULE PO (05:49)
[2022-07-21] MEDS: Senna/Docusate Sodium 1 Tablet PO ×2 (05:49→18:08)
[2022-07-21] MEDS: Loratadine 10 MG Tablet PO (05:49)
[2022-07-21] MEDS: Menthol/Lanolin/Calamine/Znox 113 GM Tube 1 APPLIC TOPICAL ×2 (05:49→18:09)
[2022-07-21] MEDS: hydroCHLOROthiazide 25 MG Tablet PO (05:49)
[2022-07-21 14:00] VITALS: BP 119/59; PULSE 67; RESP 18; TEMP 36.5; O2SAT 96
[2022-07-21] MEDS: Simvastatin 10 MG Tablet PO (22:10)
[2022-07-21] MEDS: Pantoprazole Sodium 40 MG Tablet PO (22:10)
[2022-07-21 22:12] VITALS: PULSE 69; RESP 18; O2SAT 95
[2022-07-22] MEDS: Cholecalciferol (VIT D3) 25 MCG TABLET (1,000 UNITS) 50 MCG PO ×2 (05:52→17:29)
[2022-07-22] MEDS: Doxycycline 100 MG CAPSULE PO (05:52)
[2022-07-22] MEDS: Loratadine 10 MG Tablet PO (05:52)
[2022-07-22] MEDS: Acetaminophen 500 MG Tablet 1000 MG PO ×3 (05:52→20:48)
[2022-07-22] MEDS: hydroCHLOROthiazide 25 MG Tablet PO (05:53)
[2022-07-22] MEDS: Senna/Docusate Sodium 1 Tablet PO ×2 (05:53→17:29)
[2022-07-22 05:55] VITALS: BP 128/58; PULSE 69; RESP 18; TEMP 36.8; O2SAT 98
[2022-07-22] MEDS: Menthol/Lanolin/Calamine/Znox 113 GM Tube 1 APPLIC TOPICAL (08:12)
[2022-07-22 10:00] VITALS: PULSE 80; RESP 18; O2SAT 98
[2022-07-22 14:00] VITALS: BP 140/72; PULSE 81; RESP 16; TEMP 36.7; O2SAT 96
[2022-07-22 15:57] VITALS: O2SAT 96
[2022-07-22] MEDS: Simvastatin 10 MG Tablet PO (20:48)
[2022-07-22] MEDS: Pantoprazole Sodium 40 MG Tablet PO (20:49)
[2022-07-23] MEDS: Cholecalciferol (VIT D3) 25 MCG TABLET (1,000 UNITS) 50 MCG PO ×2 (04:59→16:45)
[2022-07-23] MEDS: Loratadine 10 MG Tablet PO (05:00)
[2022-07-23] MEDS: Doxycycline 100 MG CAPSULE PO (05:00)
[2022-07-23] MEDS: hydroCHLOROthiazide 25 MG Tablet PO (05:00)
[2022-07-23] MEDS: Menthol/Lanolin/Calamine/Znox 113 GM Tube 1 APPLIC TOPICAL ×2 (05:01→16:45)
[2022-07-23] MEDS: Acetaminophen 500 MG Tablet 1000 MG PO ×3 (05:01→21:58)
[2022-07-23 05:04] VITALS: BP 112/55; PULSE 64
[2022-07-23 14:00] VITALS: BP 133/48; PULSE 61; RESP 14; TEMP 36.6; O2SAT 97
[2022-07-23] MEDS: Senna/Docusate Sodium 1 Tablet PO (16:45)
[2022-07-23 17:17] VITALS: O2SAT 99
[2022-07-23 19:51] VITALS: PULSE 68; RESP 16; O2SAT 98
[2022-07-23] MEDS: Simvastatin 10 MG Tablet PO (21:58)
[2022-07-23] MEDS: Pantoprazole Sodium 40 MG Tablet PO (21:59)
[2022-07-24 05:41] LABS: Absolute Lymphocyte Count 1.45 X10^3/uL (0.83-4.51); Absolute Neutrophil Count 2.3 X10^3/uL (2.0-7.7); Basophil# 0.02 X10^3/uL; Basophil% 0.5 % (0-1); Eosinophil# 0.27 X10^3/uL; Eosinophils% 6.1 % (0-5); Hematocrit 36.9 % (37-47); Hemoglobin 11.5 g/dL (12.0-15.0); Lymphocyte # 1.45 X10^3/ul (0.83-4.51); Lymphocyte % 32.9 % (19-41); Mean Corp Hgb Conc 31.2 g/dL (32-36); Mean Corpuscular Volume 96.3 fL (81-99); Monocyte# 0.38 X10^3/uL; Monocyte% 8.6 % (0-10); NRBC Flagged by Analyzer 0 % (0-5); Neutrophil # 2.27 X10^3/uL (2.7-7.7); Neutrophil % 51.4 % (47-70); Platelet Count 107 K/mm3 (150-450); RBC Distribution Width CV 12.4 % (11.6-14.6); RBC Distribution Width SD 43.5 fl (35.1-43.9); Red Blood Count 3.83 M/mm3 (4.2-5.4); White Blood Count 4.4 K/mm3 (4.4-11.0)
[2022-07-24 06:04] LABS: International Normalized Ratio 2.4; Prothrombin Time (Protime)PT. 25.9 SECONDS (11.7-14.9)
[2022-07-24 06:15] LABS: Anion Gap 4 (5-15); BUN 14 mg/dL (7-18); BUN/Creat Ratio 35.2 RATIO (10-20); Calcium,Total 8.9 mg/dL (8.5-10.1); Chloride 96 mmol/L (98-107); EST Glomerular Filtration Rate 165 mL/min (>60); Est Glom Filt Rate - Afr Amer 199 mL/min (>60); Estimated Creatinine Clearance 39.39 ml/min; Glucose 88 mg/dL (74-106); Potassium 3.9 mmol/L (3.5-5.1); Sodium Level 139 mmol/L (136-145)
[2022-07-24] MEDS: Acetaminophen 500 MG Tablet 1000 MG PO ×3 (06:26→20:04)
[2022-07-24] MEDS: Senna/Docusate Sodium 1 Tablet PO (06:27)
[2022-07-24] MEDS: Menthol/Lanolin/Calamine/Znox 113 GM Tube 1 APPLIC TOPICAL (06:27)
[2022-07-24] MEDS: Doxycycline 100 MG CAPSULE PO (06:27)
[2022-07-24] MEDS: Loratadine 10 MG Tablet PO (06:27)
[2022-07-24] MEDS: hydroCHLOROthiazide 25 MG Tablet PO (06:27)
[2022-07-24] MEDS: Cholecalciferol (VIT D3) 25 MCG TABLET (1,000 UNITS) 50 MCG PO ×2 (06:27→17:26)
[2022-07-24 08:49] VITALS: O2SAT 97
[2022-07-24 14:00] VITALS: BP 126/60; PULSE 69; RESP 16; TEMP 36.4; O2SAT 92
--- NOTE | 2022-07-24 16:20 | CASEMGMT ---
Social Work Staff notified this clinical social worker that patient request to speak with clinical social worker about not having a ride home tomorrow. This clinical social worker to patient room. Patient states to have thought that patient had a ride home from patient cousin but now we are not seeing eye to eye. This clinical social worker inquired if there would be anyone else that would be able to provide transportation to home for patient. Patient states not sure and start to make phone calls. This clinical social worker to check back in with patient shortly. Will continue to follow. Connie LIGHT, KELI
--- NOTE | 2022-07-24 16:54 | CASEMGMT ---
Social Work Brief interview for mental status (BIMS) and resident mood assessment (PHQ-9) completed on this day. BIMS score . PHQ-9 score 11/13. Connie LIGHT, MUKESHS
--- NOTE | 2022-07-24 17:02 | CASEMGMT ---
Social Work This director of social services following up with patient in room. Patient reports to believe that patient cousin will pick me up now. This director of social services inquired if patient cousin will be bringing patient oxygen tank, patient confirms that that is the plan. Patient reports that patient cousin will only pick patient up at 8:00AM tomorrow morning. This director of social services communicating that as long as patient leaves before midnight there will not be a concern with billing/insurance coverage. Patient voiced understanding and would like medical team to anticipate an 8AM discharge time. This director of social services provided support and active listening. Patient reports to have support in the home and someone to check in with patient when patient gets home. This director of social services updated nursing staff that patient will need to be ready for discharge at 8AM tomorrow morning due to transportation. PLAN: Discharge to home alone. Proposed discharge date: 07/25/2022 KELI Woodward
[2022-07-24] MEDS: Simvastatin 10 MG Tablet PO (20:04)
[2022-07-24] MEDS: Pantoprazole Sodium 40 MG Tablet PO (20:04)
[2022-07-25 05:23] VITALS: RESP 18; O2SAT 98
[2022-07-25] MEDS: Cholecalciferol (VIT D3) 25 MCG TABLET (1,000 UNITS) 50 MCG PO (06:26)
[2022-07-25] MEDS: Senna/Docusate Sodium 1 Tablet PO (06:26)
[2022-07-25] MEDS: hydroCHLOROthiazide 25 MG Tablet PO (06:26)
[2022-07-25] MEDS: Loratadine 10 MG Tablet PO (06:26)
[2022-07-25] MEDS: Doxycycline 100 MG CAPSULE PO (06:26)
[2022-07-25] MEDS: Acetaminophen 500 MG Tablet 1000 MG PO (06:26)
[2022-07-25 08:34] VITALS: BP 142/76; PULSE 87; RESP 18; TEMP 36.2; O2SAT 97
== END 2022-07-25 08:50 | disposition home health service (06) | DRG 310 ==
PROVIDERS: Admitting Provider Family Medicine Geriatric Medicine; PCP Family Medicine; Visit Provider Family Medicine Geriatric Medicine
DX: I48.0 Paroxysmal atrial fibrillation (principal); I27.20 Pulmonary hypertension, unspecified; E55.9 Vitamin D deficiency, unspecified; E78.00 Pure hypercholesterolemia, unspecified; M79.674 Pain in right toe(s); B35.1 Tinea unguium; I10 Essential (primary) hypertension; K21.9 Gastro-esophageal reflux disease without esophagitis; G47.33 Obstructive sleep apnea (adult) (pediatric); I89.0 Lymphedema, not elsewhere classified; M79.675 Pain in left toe(s); Z79.899 Other long term (current) drug therapy; Z79.01 Long term (current) use of anticoagulants; T84.59XD Infection and inflammatory reaction due to other internal joint prosthesis, subsequent encounter; Z96.659 Presence of unspecified artificial knee joint; Y79.2 Prosthetic and other implants, materials and accessory orthopedic devices associated with adverse incidents
CPT/HCPCS: 36415; 80048; 85025; 85610; 87426; 87811; 97110; 97116; 97162; 97166; 97530; 97535; 97802

== ENCOUNTER 2022-12-14 09:26 | Emergency (ER) | payer MEDICARE, OTHER, SELFPAY ==
[2022-12-14] VITALS (8 sets, daily range): BP systolic 96–139; BP diastolic 52–93; PULSE 52–84; RESP 16–23; TEMP 36.1; O2SAT 93–96; BMI 52.0
--- NOTE | 2022-12-14 09:39 | EKG12_ITS ---
Test Reason : SOB Blood Pressure : / mmHG Vent. Rate : 055 BPM Atrial Rate : 000 BPM P-R Int : 000 ms QRS Dur : 146 ms QT Int : 494 ms P-R-T Axes : 000 -54 059 degrees QTc Int : 472 ms Atrial fibrillation with slow ventricular response with a competing junctional pacemaker Left axis deviation Right bundle branch block Inferior infarct , age undetermined Abnormal ECG Confirmed by MAYRA SAUER, SHAILESH ([id number]), commercial production editor JOSELITO KELLER ([id number]) on 12/18/2022 10:48:05 AM Referred By: Confirmed By:DAYRON NUNEZ MD
--- NOTE | 2022-12-14 09:41 | EDS_ITS ---
HPI History of Present Illness Chief Complaint: Weakness Informant: patient and EMS Onset/Context/Timing Onset: Today and Yesterday Context: Gradual Onset Timing: Continuous Current Severity: Mild Maximum Severity: Mild Narrative Narrative: 77-year-old female past medical history of A-fib, pulmonary hypertension on Co umadin and home oxygen. Has a history of sleep apnea. States she has been more short of breath the last 2 days. Cough of yellowish sputum. And just feels generally weak. Said today at home she felt weak standing and had to sit down. Denies any falls. Denies headache or chest pain. Denies abdominal pain. Denies vomiting or diarrhea. No melena. No dysuria. She was admitted in June and July. 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 Non-smoker On home oxygen therapy JUSTINA on CPAP Paroxysmal atrial fibrillation Poliomyelitis Pulmonary hypertension Pure hypercholesterolemia Right bundle branch block (RBBB) Home Medications cetirizine 10 mg capsule 10 mg PO DAILY allergies 11/10/16 [History Last Taken 11/14/16 07:30] cholecalciferol (vitamin D3) 50 mcg (2,000 unit) capsule 2,000 unit PO BID supplement 11/10/16 [History Last Taken Unknown] fluticasone propionate 50 mcg/actuation nasal spray,suspension 1 spray NASAL DAILY PRN Allergies 11/10/16 [History Last Taken Unknown] doxycycline hyclate 100 mg tablet 100 mg PO DAILY antibiotic 10/03/18 [History Last Taken Unknown] simvastatin 10 mg tablet 10 mg PO QHS cholesterol 10/03/18 [History Last Taken Unknown] lansoprazole 15 mg capsule,delayed release 30 mg PO QHS acid reflux 06/14/22 [History Last Taken Unknown] hydrochlorothiazide 25 mg tablet 25 mg PO DAILY BP 06/24/22 [History Last Taken Unknown] warfarin 4 mg tablet 4 mg PO SUFRSA PRN afib 06/24/22 [History Last Taken Unknown] warfarin 2 mg tablet 2 mg PO afib 06/25/22 [History Last Taken Unknown] acetaminophen 500 mg tablet 1,000 mg PO Q8 #0 tabs 11/01/22 [Rx Last Taken Unknown] Allergy/AdvReac Type Severity Reaction Status Date / Time DANIEL Inhibitors Allergy Hives Verified 12/14/22 09:31 ampicillin Allergy Hives Verified 12/14/22 09:31 atorvastatin [From Lipitor] Allergy Other Verified 12/14/22 09:31 chlorophyllin [From Panafil] Allergy Other Verified 12/14/22 09:31 oxycodone [From Percocet] Allergy Upset Verified 12/14/22 09:31 Stomach papain [From Panafil] Allergy Other Verified 12/14/22 09:31 propoxyphene Allergy Upset Verified 12/14/22 09:31 [From Darvocet-N] Stomach urea [From Panafil] Allergy Other Verified 12/14/22 09:31 spironolactone AdvReac Intermediate blood in Verified 12/14/22 09:31 urine Family History Mother CVA (cerebral vascular accident) Diabetes Cancer Bladder Grandmother Heart disease Surgical History History of bilateral cataract extraction History of tonsillectomy and adenoidectomy History of total knee replacement History of total right hip replacement Social History household members: none Smoking Status: Never smoker alcohol intake: never substance use type: does not use caffeine: Yes Type: coffee Number of servings: 3 ROS ROS ED ROS Narrative Generalized weakness. Short of breath. Cough. Review of Systems ROS Unobtainable: Denies due to encephalopathy Constitutional Constitutional ED: Denies chills or fever(s) Eyes Eyes: Denies blurry vision ENT ENT ED: Denies ear pain Cardiovascular Cardiovascular: Denies chest pain Respiratory/Chest Respiratory/Chest: Reports cough and dyspnea Gastrointestinal Gastrointestinal: Denies abdominal pain, constipation, diarrhea, melena, nausea or vomiting Genitourinary Genitourinary ED: Denies dysuria or hematuria Musculoskeletal Musculoskeletal: Denies arthralgias Integumentary Denies abscess Neurologic Neurologic: Denies headache(s) Psychiatric Psychiatric: Denies anxiety or depression Endocrine Endocrinology: Denies cold intolerance Hematologic/Lymphatic Hematologic/Lymphatic: Reports none Allergic/Immunologic Allergic/Immunologic ED: Denies mouth swelling or tongue swelling EXAM Physical Exam Narrative Exam Narrative: 77-year-old female sitting upright in bed. No family present as of yet. Vital signs are stable except the blood pressure is low at 96/59. On 4 L of oxygen she is 95%. She is in no severe distress. She is awake alert and talking. H EENT exam unremarkable. Moist weeks membranes. Neck nontender. No lymphadenopathy. Lungs coarse breath sounds bilaterally. Diminished in both bases. Few scattered wheezes. Heart regular rate of 65 no murmur appreciated. Chest wall nontender. Abdomen soft nontender. Moving all 4 extremities. She has chronic lymphedema and wraps in both lower extremities. Neurologically she is awake alert. Answering questions and following commands. She is moving her extremities. She has no focal motor deficits. Const Vital Signs: 12/14/22 09:27 12/14/22 09:31 12/14/22 09:54 Temperature 97 F L Temperature Source Temporal Pulse Rate 66 66 Respiratory Rate 22 H 18 Respiratory Effort Non-Labored Short of Breath Respiratory Pattern Normal Blood Pressure 96/59 L Blood Pressure Mean 71 Pulse Ox 95 Oxygen Delivery Method Nasal Cannula Oxygen Flow Rate (L/min) 4 12/14/22 09:57 12/14/22 09:59 12/14/22 12:54 Temperature 97 F L Temperature Source Oral Pulse Rate 61 84 Respiratory Rate 23 H 16 Respiratory Effort Respiratory Pattern Blood Pressure 114/93 H 132/52 H Blood Pressure Mean 100 78 Pulse Ox 96 96 96 Oxygen Delivery Method Nasal Cannula Nasal Cannula Nasal Cannula Oxygen Flow Rate (L/min) 3 3 3 12/14/22 14:04 Temperature Temperature Source Pulse Rate 61 Respiratory Rate 18 Respiratory Effort Respiratory Pattern Blood Pressure 133/55 H Blood Pressure Mean 81 Pulse Ox 95 Oxygen Delivery Method Nasal Cannula Oxygen Flow Rate (L/min) 3 Positive well nourished, well developed and obese; Negative for cachectic, contractures or unkempt General Appearance ED: well developed and NAD; Negative for unkempt, cachectic, contractures, cyanotic, diaphoretic or pallor Nutritional Appearance: obese; Negative for cachectic HEENT Reports moist mucous membranes; Denies dry mucous membranes Negative for trauma or tenderness Mouth ED: No dry mucous membranes Mouth: No dry mucous membranes Eyes PERRL and EOMs intact bilaterally General Eye ED: Negative for pale conjunctiva or scleral icterus Neck no lymphadenopathy, supple and no JVD General: Negative for tenderness Lymph Lymphatic: Negative for other Chest Wall inspection of chest normal and palpation of chest normal Chest: Negative for other Resp normal respiratory effort and clear to auscultation bilaterally Effort and Inspection: Negative for retractions Auscultation: Negative for rales, rhonchi or wheezes Cardio regular rate, S1 normal heart sound, S2 normal heart sound and no murmurs; Negative for regular rhythm Rhythm: abnormal rhythm GI normal to inspection, nondistended, normoactive bowel sounds, non-tender, non- distended and no masses Inspection: Negative for abdominal distention Auscultation: normoactive bowel sounds Palpation: soft; Negative for tender or guarding Back/Spine no CVA tenderness General Back: Negative for CVA tenderness Cervical Spine: Negative for cervical spine tenderness Thoracic Spine / Upper Back: Negative for thoracic spinal tenderness Lumbar Spine / Lower Back: Negative for lumbar spinal tenderness Extremity Negative for normal to inspection Extremity Narrative: Chronic bilateral lymphedema. Nontender. General Extremety ED: Yes edema; Negative for tenderness General Extremity: edema Neuro oriented x3 and CN's II-XII intact bilaterally Sensorium / Orientation: alert Sensory Exam: No sensory level loss detected Motor Exam: strength 5/5 throughout Psych mental status grossly normal Appearance: Negative for unkempt Attitude: No agitated Mood & Affect: Negative for depressed Skin no rashes or lesions noted and no wounds General Skin Exam: Negative for jaundice or pallor Lesions: No lesion noted Rashes: No rashes noted MDM MDM MDM Narrative Medical decision making narrative: 77-year-old female presents generally weak with hypotension and wheezing. She will be treated with IV fluids. DuoNeb aerosol. Labs will be done looking for infection, dehydration, electrolyte abnormalities or anemia. She is on Coumadin her last INR which was done recently was 8. Patient doing well. Friend of hers is here with her and states that she was admitted to TCU about 6 months ago and she did well but now she is progressively going downhill again. The patient lives alone at home. I asked our social work manager to evaluate the patient. She spoke to the TCU did not have any available beds. She is trying local nursing homes to see if we can directly admit her to their for physical therapy and rehabilitation. If that is not possible she will may need to be admitted for failure to thrive. 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 She spoke to multiple local extended care facilities in [place] [facility] was able to take the patient and patient was willing to go there. She will be transported there. Patient is doing well at 3:05 PM. History & Record Review Discussion w/independent historian: EMS personnel and Patient Lab Data Attestation: I reviewed the patient's lab results. Lab results narrative: CBC shows a white count of 5.1. H&H of 11.1 and 38. Platelets 125,000. Patient is on Coumadin her INR is supratherapeutic at 4.8 but improving it was previously 8. Electrolytes show a gap of 1. BUN of 21 and creatinine 0.47. Liver enzyme normal workable.. Lactic acid normal at 0.9. BNP is elevated at 294. Troponin level is normal at 33. Labs are consistent with her baseline anemia and thrombocytopenia when compared to prior labs. Urinalysis shows 5-10 5-10 white cells. 5-10 epithelial cells with no bacteria or nitrates. This appears to be contaminated specimen. Labs: Laboratory Results - last 24 hr 12/14/22 12/14/22 12/14/22 09:55 09:55 09:55 WBC 5.1 RBC 3.82 L Hgb 11.5 L Hct 38.6 MCV 101.0 H MCH 30.1 MCHC 29.8 L RDW Std Deviation 51.7 H RDW Coeff of Bonny 14.8 H Plt Count 125 L MPV 11.4 Immature Gran % (Auto) 0.400 Neut % (Auto) 74.2 H Lymph % (Auto) 11.9 L Catahoula % (Auto) 11.5 H Eos % (Auto) 1.6 Baso % (Auto) 0.4 Absolute Neuts (auto) 3.8 Absolute Lymphs (auto) 0.61 L Nucleated RBC % 0.6 PT 45.1 H INR 4.8 H* Sodium 139 Potassium 4.2 Chloride 95 L Carbon Dioxide 43.0 H Anion Gap 1 L BUN 21 H Creatinine 0.47 L Estim Creat Clear Calc 39.39 Est GFR (MDRD) Af Amer 165 Est GFR (MDRD) Non-Af 137 BUN/Creatinine Ratio 45.0 H Glucose 101 Lactic Acid Calcium 9.3 Total Bilirubin 0.50 AST 24 ALT 26 Alkaline Phosphatase 87 Troponin I High Sens 33 B-Natriuretic Peptide Total Protein 6.7 Albumin 2.8 L Globulin 3.9 Albumin/Globulin Ratio 0.7 L Urine Color Urine Clarity Urine pH Ur Specific Ragland Urine Protein Urine Glucose (UA) Urine Ketones Urine Occult Blood Urine Nitrite Urine Bilirubin Urine Urobilinogen Ur Leukocyte Esterase Urine RBC Urine WBC Ur Squamous Epith Cells Urine Bacteria Hyaline Casts Urine Mucus 12/14/22 12/14/22 12/14/22 09:55 09:55 10:43 WBC RBC Hgb Hct MCV MCH MCHC RDW Std Deviation RDW Coeff of Bonny Plt Count MPV Immature Gran % (Auto) Neut % (Auto) Lymph % (Auto) Catahoula % (Auto) Eos % (Auto) Baso % (Auto) Absolute Neuts (auto) Absolute Lymphs (auto) Nucleated RBC % PT INR Sodium Potassium Chloride Carbon Dioxide Anion Gap BUN Creatinine Estim Creat Clear Calc Est GFR (MDRD) Af Amer Est GFR (MDRD) Non-Af BUN/Creatinine Ratio Glucose Lactic Acid 0.9 Calcium Total Bilirubin AST ALT Alkaline Phosphatase Troponin I High Sens B-Natriuretic Peptide 294.8 H Total Protein Albumin Globulin Albumin/Globulin Ratio Urine Color Yellow Urine Clarity Clear Urine pH 6.0 Ur Specific Ragland 1.025 Urine Protein 30 H Urine Glucose (UA) Normal Urine Ketones 5 H Urine Occult Blood 25 H Urine Nitrite Negative Urine Bilirubin Negative Urine Urobilinogen 4 H Ur Leukocyte Esterase 25 H Urine RBC 0-5 SEEN Urine WBC 5-10 SEEN Ur Squamous Epith Cells 5-10 SEEN Urine Bacteria 0 SEEN Hyaline Casts 10-25 SEEN Urine Mucus 2+ Radiography Chest X-Ray - ED: 1 View, Read by ED Physician, No Acute Disease, Chronic Changes, Cardiomegaly, CHF, Right Infiltrate, Right Effusion and Left Effusion Diagnostic Testing: Clinical Impression(s) from Imaging Studies Chest X-Ray 12/14/22 10:20 IMPRESSION: Bibasilar infiltrates superimposed on CHF with small bilateral pleural effusions. Electronically Signed: Jim Watters MD at 10:34 EDT , Chest x-ray, portable, single view interpreted both by myself and the radiologist. Shows chronic changes. Appears to be a right lower lobe infiltrate. Small pleural effusions. It does appear to be changed from a prior. There may indeed be a right lower lobe pneumonia. Rhythm Strip Rhythm Strip: A-fib Rate: 55 Ectopy: None EKG Initial EKG: Attestation: I personally reviewed and interpreted this EKG as follows: Interpretation: No Acute Injury Pattern and Atrial Fibrillation Comments: Atrial fibrillation rate of 55. Right bundle branch block. No acute signs of AL or ischemia. Discharge Plan Triage Chief Complaint: Weakness ED Provider: Hay Clark Dx/Rx/DC Orders Clinical Impression: Acute dyspnea, Supratherapeutic INR, Adult failure to thrive, Generalized weakness Instructions: ED Dyspnea, ED Weakness (Uncertain Cause) Prescriptions: No Action doxycycline hyclate 100 mg tablet 100 mg PO DAILY lansoprazole 15 mg capsule,delayed release(DR/EC) 30 mg PO QHS fluticasone propionate 1 SPRAY spray,suspension 1 spray NASAL DAILY PRN (Reason: Allergies) cholecalciferol (vitamin D3) 2,000 UNIT capsule 2,000 unit PO BID cetirizine 10 MG capsule 10 mg PO DAILY simvastatin 10 mg tablet 10 mg PO QHS warfarin 4 mg tablet 4 mg PO SUFRSA PRN (Reason: afib) Protocol: Dose Management Condition: Sunday Dose/Route: 1 mg Instruction: 0.5 x 2 mg tablets Condition: Sunday Dose/Route: 0 mg Instruction: 0 tablets Condition: Sunday Dose/Route: 0 mg Instruction: 0 tablets Condition: Sunday Dose/Route: 0 mg Instruction: 0 tablets Condition: Dose/Route: 4 mg Instruction: 1 x 4 mg tablet Condition: Sunday Dose/Route: 4 mg Instruction: 1 x 4 mg tablet Condition: Sunday Dose/Route: 4 mg Instruction: 1 x 4 mg tablet Protocol Text: Adjustment Start Date: Sunday12/13/22 INR Value: 8.0 INR Date: 12/13/22 hydrochlorothiazide 25 mg tablet 25 mg PO DAILY Rx Instructions: TAKE 1 TABLET BY MOUTH EVERY DAY warfarin 2 mg Tablet 2 mg PO Protocol: Dose Management Condition: Sunday Dose/Route: 1 mg Instruction: 0.5 x 2 mg tablets Condition: Sunday Dose/Route: 0 mg Instruction: 0 tablets Condition: Sunday Dose/Route: 0 mg Instruction: 0 tablets Condition: Sunday Dose/Route: 0 mg Instruction: 0 tablets Condition: Dose/Route: 4 mg Instruction: 1 x 4 mg tablet Condition: Sunday Dose/Route: 4 mg Instruction: 1 x 4 mg tablet Condition: Sunday Dose/Route: 4 mg Instruction: 1 x 4 mg tablet Protocol Text: Adjustment Start Date: Sunday12/13/22 INR Value: 8.0 INR Date: 12/13/22 acetaminophen 500 mg Tablet 1,000 mg PO Q8 Qty: 0 0RF Primary Care Provider: Jose Miguel Chairez Referrals: Jose Miguel Chairez MD [Primary Care Provider] - As Needed Activity Restrictions/Additional Instructions: Your Coumadin level was too high. It is 4.8. Hold your Coumadin, do not take it until they recheck it in several days. They can restart it when your levels around 2.5. Follow-up with your doctor or the medical superintendent Víctor Aguayo as needed. Disposition Disposition: Home, Self Care
[2022-12-14] MEDS: Ipratropium/Albuterol Sulfate 3 ML AMPUL.NEB INHALATION (09:48)
[2022-12-14] MEDS: 0.9% Normal Saline 1,000 ML 1000 ML IV (10:02)
[2022-12-14 10:15] LABS: Absolute Lymphocyte Count 0.61 X10^3/uL (0.83-4.51); Absolute Neutrophil Count 3.8 X10^3/uL (2.0-7.7); Basophil# 0.02 X10^3/uL; Basophil% 0.4 % (0-1); Eosinophil# 0.08 X10^3/uL; Eosinophils% 1.6 % (0-5); Hematocrit 38.6 % (37-47); Hemoglobin 11.5 g/dL (12.0-15.0); Lymphocyte # 0.61 X10^3/ul (0.83-4.51); Lymphocyte % 11.9 % (19-41); Mean Corp Hgb Conc 29.8 g/dL (32-36); Mean Corpuscular Hgb 30.1 pg (27.0-32.0); Mean Platelet Vol. 11.4 fl (6.2-12.0); Monocyte# 0.59 X10^3/uL; Monocyte% 11.5 % (0-10); NRBC Flagged by Analyzer 0.6 % (0-5); Neutrophil # 3.81 X10^3/uL (2.7-7.7); Neutrophil % 74.2 % (47-70); Platelet Count 125 K/mm3 (150-450); RBC Distribution Width CV 14.8 % (11.6-14.6); RBC Distribution Width SD 51.7 fl (35.1-43.9); Red Blood Count 3.82 M/mm3 (4.2-5.4); White Blood Count 5.1 K/mm3 (4.4-11.0)
[2022-12-14 10:19] LABS: Prothrombin Time (Protime)PT. 45.1 SECONDS (11.7-14.9)
--- NOTE | 2022-12-14 10:20 | RAD_ITS ---
STUDY: X-RAY CHEST REASON FOR EXAM: Female, 77 years old. Cough. Wheezing. Weakness. TECHNIQUE: Single AP portable view of the chest. COMPARISON: Comparison is made with prior examination June 23, 2022. FINDINGS: EKG electrodes are seen. Right basilar infiltration. Patchy infiltrate in the left lower lobe. Vascular congestion and CHF. Small bilateral pleural effusions slightly worse on the left side. There is mild cardiac enlargement. Normal mediastinum and lela. Normal visualized pulmonary arteries. There is atherosclerotic calcification of the aortic arch with tortuosity. There are diffuse degenerative changes of the visualized thoracic spine. There is degenerative osteoarthritis of the bilateral shoulders. There is no demonstrated abnormality of the visualized soft tissue structures of the upper abdomen. RAD/Chest 1 View (Portable) IMPRESSION: Bibasilar infiltrates superimposed on CHF with small bilateral pleural effusions. Electronically Signed: Jim Watters MD at 10:34 EDT ,
[2022-12-14 10:24] LABS: International Normalized Ratio 4.8
[2022-12-14 10:29] LABS: ALB/GLOB Ratio 0.7 RATIO (0.9-2.4); AST(SGOT) 24 U/L (15-37); Alanine Aminotransfer ALT/SGPT 26 U/L (13-56); Albumin, Serum 2.8 g/dL (3.2-5.0); Alkaline Phosphatase 87 U/L (45-117); Anion Gap 1 (5-15); BUN 21 mg/dL (7-18); Calcium,Total 9.3 mg/dL (8.5-10.1); Chloride 95 mmol/L (98-107); Creatinine, Serum 0.47 mg/dL (0.55-1.02); EST Glomerular Filtration Rate 137 mL/min (>60); Est Glom Filt Rate - Afr Amer 165 mL/min (>60); Estimated Creatinine Clearance 39.39 ml/min; Globulin 3.9 g/dL (2.2-4.2); Glucose 101 mg/dL (74-106); Potassium 4.2 mmol/L (3.5-5.1); Protein, Total 6.7 g/dL (6.4-8.2); Sodium Level 139 mmol/L (136-145); Troponin-I HS 33 pg/mL (3.0-54.0)
[2022-12-14 10:41] LABS: Lactic Acid 0.9 mmol/L (0.4-1.9)
[2022-12-14 10:44] LABS: BNP,B-Type NATRIURETIC PEPTIDE 294.8 pg/mL (0-100)
[2022-12-14 10:46] LABS: Bacteria 0 SEEN /hpf (None Seen)
[2022-12-14 11:10] LABS: Color, Urine Yellow (Yellow); Glucose, Dipstick Normal (Normal); Ketone-Dipstick 5 mg/dl (Negative); Leukocyte Esterase-Dipstick 25 /ul (Negative); Nitrite-Dipstick Negative (Negative); Occult Blood-Urine 25 /ul (Negative); Protein-Dipstick 30 mg/dl (Negative); Specific Gravity, Urine 1.025 (1.002-1.030); Urine Bilirubin Dipstick Negative (Negative); Urine Clarity Clear (Clear); Urine Urobilinogen 4 mg/dl (Normal)
[2022-12-14 11:22] LABS: Hyaline Cast 10-25 SEEN /lpf (0-5); Mucous, Urine 2+ /hpf (<or=2+); Red Blood Cells-Urine 0-5 SEEN /hpf (0-5); Squamous Epithelial Cells - UA 5-10 SEEN /hpf (5-10); White Blood Cells 5-10 SEEN /hpf (0-5)
--- NOTE | 2022-12-14 14:21 | CM.ED ---
Addendum entered by Reena Payne 12/14/22 15:12: SW informed [facility] is able to accept but would need order for bipap. AMBROCIO met with MD Clark to review patient's acceptance to [facility] and need for bipap order. to order. SW met with patient and informed her [facility] accepted her. Patient in agreement to go to [facility]. Patient feels she is able to get in a wheelchair for transportation. SW completed PASRR. 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 SW explained patient's insurance would allow for placement from ED if we have an accepting SNF. SW to follow up. AMBROCIO contacted [facility] staff, to inquire about available beds. [facility] reports none current with possible beds available next week. AMBROCIO met with patient and introduced herself and role as [facility] Order Entry Technician. Patient was sitting in bed and agreeable to speak with SW with guest present. SW inquired about recent events as well as patient's interest in SNF. Patient recalled being at TCU in June and reports it was a beneficial experience. Patient explained she uses a walker to walk but wasn't able to stand up due to weakness. Patient reports being interested in TCU. SW explained there are no beds available until next week and encouraged patient to review a list of other SNFs so patient can be transferred to SNF from ED. Patient in agreement with plan and reviewed a list with SW. AMBROCIO provided patient with a list of local SNFs with 20 miles of her home address. Patient reports she did not want to go to [place] or [place] and was interested in [place] or [facility]. Patient reports she would prefer the input of her friend, Martha, as she recalls her father went to a SNF locally. SW inquired if she would call patient's friend, patient agreed. SW then assisted patient in reviewing SNF list. Patient reports [facility] and [facility] then [facility] and [facility]. Patient reports if she goes to [facility], she would want to transfer to a [place] one. AMBROCIO explained she would contact first two choices to inquire about bed availability then would send referrals via [facility]Port. Patient reports understanding. AMBROCIO contacted patient's friend Martha with patient's permission to inquire about SNF recommendations. SW introduced herself and role as [facility] Order Entry Technician. Patient's friends reports the patient doesn't move around a lot at home but did well with therapy at TCU. SW explained TCU does not have available beds but patient was hopeful her friend might have recommendations based on experience. Patient's friend explained she would not recommend [facility] and would recommend [facility]. SW thanks patient's friend for her input. AMBROCIO contacted [facility], beds available, referral sent via [facility]Port. SW contacted [facility], beds available, however, admissions staff report patient would need three day stay. SW reports due to patient's insurance, she would qualify to be admitted from ED. Admissions staff to review with administrators but open to review referral via CarePort. SW sent referral via Careport. Plan: SNF referrals pending at [facility] and [facility] ABHILASH Burnham
--- NOTE | 2022-12-14 16:12 | NURSING ---
Nurse to nurse report given to Katy at [facility] at this time.
== END 2022-12-14 18:21 | disposition skilled nursing facility (03) ==
PROVIDERS: Emergency Provider Emergency Medicine; PCP Family Medicine; Visit Provider Emergency Medicine
DX: R53.1 Weakness (principal); I48.0 Paroxysmal atrial fibrillation; I10 Essential (primary) hypertension; R62.7 Adult failure to thrive; E78.00 Pure hypercholesterolemia, unspecified; R06.02 Shortness of breath; R79.1 Abnormal coagulation profile; Z99.81 Dependence on supplemental oxygen; Z79.01 Long term (current) use of anticoagulants; Z79.899 Other long term (current) drug therapy
CPT/HCPCS: 99285; 71045; 80053; 81001; 83605; 83880; 84484; 85025; 85610; 87428; 93005; 94640; P9612; A4216

== ENCOUNTER 2022-12-16 12:21 | Inpatient (IN) | payer MEDICARE, OTHER, SELFPAY ==
[2022-12-16] VITALS (17 sets, daily range): BP systolic 117–156; BP diastolic 53–72; PULSE 51–86; RESP 10–33; TEMP 35.8–36.6; O2SAT 91–100; BMI 46.7; BMI 44.4
--- NOTE | 2022-12-16 12:42 | RAD_ITS ---
EXAM: XR CHEST, 1 VIEW CLINICAL INDICATION: dypsnea TECHNIQUE: Frontal view of the chest. This report was created using [employer] report generation technology. COMPARISON: 12/14/2022 FINDINGS: LUNGS AND PLEURAL SPACES: There is increasing perihilar opacities which may represent increasing vascular congestion and edema. No pneumothorax. No effusion. HEART: Unremarkable. Cardiac silhouette not enlarged. MEDIASTINUM: Central airways and mediastinal contour are unremarkable. BONES/JOINTS: There are bilateral effusions on today''s exam. SOFT TISSUES: See above. RAD/Chest 1 View (Portable) IMPRESSION: Increasing vascular congestion and edema with bilateral pleural effusions. Electronically Signed: Mohinder Terrazas MD at 16:30 EDT ,
--- NOTE | 2022-12-16 12:42 | EKG12_ITS ---
Test Reason : SOB Blood Pressure : / mmHG Vent. Rate : 072 BPM Atrial Rate : 000 BPM P-R Int : 000 ms QRS Dur : 150 ms QT Int : 424 ms P-R-T Axes : 000 -56 095 degrees QTc Int : 464 ms Atrial fibrillation Left axis deviation Right bundle branch block Inferior infarct , age undetermined T wave abnormality, consider lateral ischemia Abnormal ECG Confirmed by MAYRA SAUER, SHAILESH ([id number]), sports editor JOSELITO KELLER ([id number]) on 12/18/2022 11:15:33 AM Referred By: SATISH Confirmed By:DAYRON NUNEZ MD
--- NOTE | 2022-12-16 12:44 | EDS_ITS ---
HPI History of Present Illness Chief Complaint: Shortness of Breath Detail of Chief Complaint: Shortness of breath Informant: patient Narrative Narrative: Patient presents the emergency department complaint of shortness of breath. She is from extended-care facility. She was seen in the emergency department 2 days ago apparently diagnosed with pneumonia. Patient on 4 L at the senior care was satting in the 80s. She was placed on a nonrebreather mask by EMS. She denies chest pain. She is feeling improved on nonrebreather. She does cough. Patient also has history of A-fib and is on Coumadin. She is somewhat of a poor historian. 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 Non-smoker On home oxygen therapy JUSTINA on CPAP Paroxysmal atrial fibrillation Poliomyelitis Pulmonary hypertension Pure hypercholesterolemia Right bundle branch block (RBBB) Home Medications cetirizine 10 mg capsule 10 mg PO DAILY allergies 11/10/16 [History Last Taken 11/14/16 07:30] cholecalciferol (vitamin D3) 50 mcg (2,000 unit) capsule 2,000 unit PO BID supplement 11/10/16 [History Last Taken Unknown] fluticasone propionate 50 mcg/actuation nasal spray,suspension 1 spray NASAL DAILY PRN Allergies 11/10/16 [History Last Taken Unknown] doxycycline hyclate 100 mg tablet 100 mg PO DAILY antibiotic 10/03/18 [History Last Taken Unknown] simvastatin 10 mg tablet 10 mg PO QHS cholesterol 10/03/18 [History Last Taken Unknown] lansoprazole 15 mg capsule,delayed release 30 mg PO QHS acid reflux 06/14/22 [History Last Taken Unknown] hydrochlorothiazide 25 mg tablet 25 mg PO DAILY BP 06/24/22 [History Last Taken Unknown] warfarin 4 mg tablet 4 mg PO SUFRSA PRN afib 06/24/22 [History Last Taken Unknown] warfarin 2 mg tablet 2 mg PO afib 06/25/22 [History Last Taken Unknown] acetaminophen 500 mg tablet 1,000 mg PO Q8 #0 tabs 07/18/22 [Rx Last Taken Unknown] bipap #1 ea 12/14/22 [Rx Last Taken Unknown] Allergy/AdvReac Type Severity Reaction Status Date / Time DANIEL Inhibitors Allergy Hives Verified 12/16/22 12:21 ampicillin Allergy Hives Verified 12/16/22 12:21 atorvastatin [From Lipitor] Allergy Other Verified 12/16/22 12:21 chlorophyllin [From Panafil] Allergy Other Verified 12/16/22 12:21 oxycodone [From Percocet] Allergy Upset Verified 12/16/22 12:21 Stomach papain [From Panafil] Allergy Other Verified 12/16/22 12:21 propoxyphene Allergy Upset Verified 12/16/22 12:21 [From Darvocet-N] Stomach urea [From Panafil] Allergy Other Verified 12/16/22 12:21 spironolactone AdvReac Intermediate blood in Verified 12/16/22 12:21 urine Family History Mother CVA (cerebral vascular accident) Diabetes Cancer Bladder Grandmother Heart disease Surgical History History of bilateral cataract extraction History of tonsillectomy and adenoidectomy History of total knee replacement History of total right hip replacement Social History household members: none Smoking Status: Never smoker alcohol intake: never substance use type: does not use caffeine: Yes Type: coffee Number of servings: 3 ROS ROS ED Review of Systems ROS Unobtainable: other Constitutional Constitutional ED: Reports lethargy; Denies chills, fever(s), sweats or weight loss Eyes Eyes: Denies blurry vision, change in vision or diplopia ENT ENT ED: Denies rhinorrhea or sore throat Cardiovascular Cardiovascular: Denies chest pain, orthopnea or racing heartbeat Respiratory/Chest Respiratory/Chest: Reports dyspnea and dyspnea on exertion; Denies cough, orthopnea or sputum Gastrointestinal Gastrointestinal: Denies abdominal pain, diarrhea, nausea or vomiting Genitourinary Genitourinary ED: Denies dysuria, hematuria or urinary frequency Musculoskeletal Musculoskeletal: Denies arthralgias, back pain, myalgias or neck pain Integumentary Denies abscess, Abrasions or rash Neurologic Neurologic: Denies headache(s) or weakness Psychiatric Psychiatric: Denies anxiety, depression or suicidal thoughts Endocrine Endocrinology: Denies polydipsia, polyphagia or polyuria Hematologic/Lymphatic Hematologic/Lymphatic: Denies easy bleeding, easy bruising or lymphadenopathy Allergic/Immunologic Allergic/Immunologic ED: Denies mouth swelling, tongue swelling or urticaria EXAM Physical Exam Const Vital Signs: 12/16/22 12:22 12/16/22 12:25 12/16/22 12:42 Temperature 97.9 F 97.6 F L Temperature Source Temporal Temporal Pulse Rate 79 65 Respiratory Rate 33 H 12 Respiratory Effort Short of Breath Labored Accessory Muscle Use Respiratory Depth Normal Respiratory Pattern Tachypnea Blood Pressure 156/72 H 148/60 H Blood Pressure Mean 100 89 Pulse Ox 95 95 Oxygen Delivery Method Room Air Non-Rebreather Non-Rebreather Oxygen Flow Rate (L/min) 12 12 Fraction of Inspired Oxygen (FIO2) 12/16/22 13:15 12/16/22 13:23 12/16/22 13:18 Temperature Temperature Source Pulse Rate 63 70 Respiratory Rate 30 H Respiratory Effort Respiratory Depth Respiratory Pattern Blood Pressure 149/57 H 133/57 H Blood Pressure Mean 82 Pulse Ox 97 97 Oxygen Delivery Method Non-Rebreather Non-Rebreather Oxygen Flow Rate (L/min) 12 12 Fraction of Inspired Oxygen (FIO2) 100 12/16/22 13:37 Temperature Temperature Source Pulse Rate 67 Respiratory Rate 27 H Respiratory Effort Respiratory Depth Respiratory Pattern Blood Pressure Blood Pressure Mean Pulse Ox 93 Oxygen Delivery Method Oxygen Flow Rate (L/min) Fraction of Inspired Oxygen (FIO2) 40 Positive well nourished and well developed General Appearance ED: well developed and NAD HEENT Reports TM's clear and moist mucous membranes normocephalic and atraumatic; Negative for trauma or tenderness Tympanic Membrane ED: Yes TM's clear Eyes PERRL and EOMs intact bilaterally General Eye ED: Negative for pale conjunctiva or scleral icterus Neck no lymphadenopathy, supple and no JVD General: Negative for tenderness Chest Wall inspection of chest normal and palpation of chest normal Chest: Negative for tenderness Resp normal respiratory effort and clear to auscultation bilaterally Resp Narrative: Mild tachypnea. Few rales in both bases. No accessory muscle use or retractions. Effort and Inspection: Negative for respiratory distress or pain with movement Auscultation: Negative for rhonchi, wheezes or diminished lung sounds Cardio S1 normal heart sound, S2 normal heart sound and no murmurs Cardio Narrative: Irregularly irregular, no murmurs auscultated. Peripheral Pulses: pulses 2+ throughout GI normal to inspection, nondistended, normoactive bowel sounds, soft to palpation, non-tender, non-distended and no masses Back/Spine no CVA tenderness and no thoracic nor lumbar tenderness Extremity normal to inspection Extremity Narrative: Lymphedema both lower extremities. General Extremety ED: Negative for edema General Extremity: Negative for edema Neuro oriented x3, CN's II-XII intact bilaterally, no sensory deficits noted and gait normal Sensorium / Orientation: awake, alert, oriented to person, oriented to place and oriented to time Motor Exam: strength 5/5 throughout and strength abnormal Psych mental status grossly normal Skin no rashes or lesions noted and no wounds MDM MDM MDM Narrative Medical decision making narrative: Clinically I suspected CHF. Patient was placed on tile and marble setter. I ordered a blood gas. Chest x-ray obtained showed cardiomegaly with pulmonary congestion right greater than left and small left pleural effusion as well as right small pleural effusion. Official report from radiology pending. I did order Lasix 40 mg IV as well as an inch Nitropaste to the anterior chest wall. We will order a Garsia catheter for accurate KIERAN's. Patient had basic labs that showed a normal white count of 6.2. Hemoglobin 12 and hematocrit was 41.6. Platelets 192. INR was 2.1. Chemistries unremarkable. Troponin was normal at 25. We did perform an ABG which showed a pH of 7.257 with a CO2 of 113 and a PO2 of 86 and a bicarb of 50 satting 93% on nonrebreather. Patient will be started on BiPAP. Case will be discussed with hospitalist to evaluate patient for admission. Clinically I suspect CHF rather than pneumonia. She is currently on cefdinir at the senior care. BNP was elevated at 409 and during last visit the ER was in the 200s. Lab Data Attestation: I reviewed the patient's lab results. Labs: Laboratory Results - last 24 hr 12/16/22 12/16/22 12/16/22 12:40 12:40 12:40 WBC 6.2 RBC 4.08 L Hgb 12.3 Hct 41.6 MCV 102.0 H MCH 30.1 MCHC 29.6 L RDW Std Deviation 54.0 H RDW Coeff of Bonny 15.3 H Plt Count 192 MPV 11.0 Immature Gran % (Auto) 1.800 H Neut % (Auto) 77.1 H Lymph % (Auto) 12.0 L Wagoner % (Auto) 8.2 Eos % (Auto) 0.6 Baso % (Auto) 0.3 Absolute Neuts (auto) 4.8 Absolute Lymphs (auto) 0.75 L Nucleated RBC % 0.8 PT 23.4 H INR 2.1 Sodium 137 Potassium 4.2 Chloride 92 L Carbon Dioxide 42.0 H Anion Gap 3 L BUN 23 H Creatinine 0.55 Estim Creat Clear Calc 46.02 Est GFR (MDRD) Af Amer 137 Est GFR (MDRD) Non-Af 114 BUN/Creatinine Ratio 42.0 H Glucose 125 H Lactic Acid Calcium 9.4 Troponin I High Sens 25 B-Natriuretic Peptide 12/16/22 12/16/22 12:40 12:40 WBC RBC Hgb Hct MCV MCH MCHC RDW Std Deviation RDW Coeff of Bonny Plt Count MPV Immature Gran % (Auto) Neut % (Auto) Lymph % (Auto) Wagoner % (Auto) Eos % (Auto) Baso % (Auto) Absolute Neuts (auto) Absolute Lymphs (auto) Nucleated RBC % PT INR Sodium Potassium Chloride Carbon Dioxide Anion Gap BUN Creatinine Estim Creat Clear Calc Est GFR (MDRD) Af Amer Est GFR (MDRD) Non-Af BUN/Creatinine Ratio Glucose Lactic Acid 0.9 Calcium Troponin I High Sens B-Natriuretic Peptide 409.3 H Radiography Diagnostic Testin view chest x-ray obtained interpreted by myself as cardiomegaly with pulmonary congestion consistent with CHF. There was fluid in the right fissure. SHe had small bilateral effusions. Official report from radiology pending. EKG Initial EKG: Attestation: I personally reviewed and interpreted this EKG as follows: Comments: Atrial fibrillation with a rate of [address] changes Discharge Plan Dx/Rx/DC Orders Clinical Impression: Acute dyspnea, Respiratory failure, Acute CHF, Pneumonia Disposition Disposition: Acute Care [facility]
[2022-12-16 13:06] LABS: Absolute Lymphocyte Count 0.75 X10^3/uL (0.83-4.51); Absolute Neutrophil Count 4.8 X10^3/uL (2.0-7.7); Basophil# 0.02 X10^3/uL; Basophil% 0.3 % (0-1); Eosinophil# 0.04 X10^3/uL; Eosinophils% 0.6 % (0-5); Hematocrit 41.6 % (37-47); Hemoglobin 12.3 g/dL (12.0-15.0); Lymphocyte # 0.75 X10^3/ul (0.83-4.51); Mean Corp Hgb Conc 29.6 g/dL (32-36); Mean Corpuscular Hgb 30.1 pg (27.0-32.0); Monocyte# 0.51 X10^3/uL; Monocyte% 8.2 % (0-10); NRBC Flagged by Analyzer 0.8 % (0-5); Neutrophil # 4.81 X10^3/uL (2.7-7.7); Neutrophil % 77.1 % (47-70); Platelet Count 192 K/mm3 (150-450); RBC Distribution Width CV 15.3 % (11.6-14.6); Red Blood Count 4.08 M/mm3 (4.2-5.4); White Blood Count 6.2 K/mm3 (4.4-11.0)
[2022-12-16 13:11] LABS: International Normalized Ratio 2.1; Prothrombin Time (Protime)PT. 23.4 SECONDS (11.7-14.9)
[2022-12-16 13:14] LABS: Anion Gap 3 (5-15); BUN 23 mg/dL (7-18); Calcium,Total 9.4 mg/dL (8.5-10.1); Chloride 92 mmol/L (98-107); Creatinine, Serum 0.55 mg/dL (0.55-1.02); EST Glomerular Filtration Rate 114 mL/min (>60); Est Glom Filt Rate - Afr Amer 137 mL/min (>60); Estimated Creatinine Clearance 46.02 ml/min; Glucose 125 mg/dL (74-106); Potassium 4.2 mmol/L (3.5-5.1); Sodium Level 137 mmol/L (136-145); Troponin-I HS 25 pg/mL (3.0-54.0)
[2022-12-16] MEDS: Nitroglycerin Oint 1 INCH PACKET TD (13:15)
[2022-12-16] MEDS: Furosemide 40 MG/4 ML Vial IV ×2 (13:16→17:24)
[2022-12-16 13:22] LABS: Lactic Acid 0.9 mmol/L (0.4-1.9)
--- NOTE | 2022-12-16 13:33 | CPS ---
critical ABG results to Dr Ball
[2022-12-16 13:37] LABS: BNP,B-Type NATRIURETIC PEPTIDE 409.3 pg/mL (0-100)
[2022-12-16 13:50] LABS: Allen Test Positive; Base Excess 23 mmol/L (-2 to +2); Bicarbonate 50.4 mmol/L (22-26); Blood Gas Specimen Type ART; FI02 100; O2 Delivery Device NRB; PO2 87 mmHG (75-100); SITE R Radial; SO2 93 % (95-99); Total Carbon Dioxide > 50 mmol/L; pH 7.26 (7.35-7.45)
--- NOTE | 2022-12-16 15:46 | HP.PCM.HOS_ITS ---
HPI - General General Date of Admission: 12/16/22 Date of Service: 12/16/22 Chief Complaint: Shortness of breath, decreased pulse oximeter reading HPI Narrative ELIGIO ALANIS, is a 77 F who presents to the emergency room at [facility] after being transported from a local [facility] care facility at which she is a resident receiving inpatient rehab services due to shortness of breath and decreased pulse oximetry reading on supplemental oxygen. Patient's pulse ox was 80% on 4 L, she had been seen in the emergency room here 2 days ago and diagnosed with a pneumonia and placed on doxycycline. Patient has an extensive medical history which includes pulmonary hypertension, paroxysmal atrial fibrillation, obstructive sleep apnea, essential hypertension, and morbid obesity. She also has chronic hypoxic respiratory failure and is on 3 L of oxygen at all times. She uses BiPAP when sleeping. Evaluation in the ER revealed the patient to be somnolent and lethargic, an ABG was obtained which showed the patient to be hypercapnic with a PCO2 of 113, patient's PO2 was 87 this was 100% O2 on a nonrebreather. Patient's chest x-ray showed evidence of CHF with bilateral pleural effusions. Patient's lab revealed a normal white blood cell count at 6.2, chemistry was for the most part unremarkable except for BUN of 23 and a glucose of 125. Patient's beta nitric peptide was elevated at 409. Patient was placed on BiPAP, she was given 40 of Lasix IV, she will be admitted to PCU for acute congestive heart failure acute hypercapnic and hypoxic respiratory failure. Patient will be maintained on BiPAP, IV Lasix will be administered, patient is a full code according to [facility] information. 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 Non-smoker On home oxygen therapy JUSTINA on CPAP Paroxysmal atrial fibrillation Poliomyelitis Pulmonary hypertension Pure hypercholesterolemia Right bundle branch block (RBBB) Home Medications cetirizine 10 mg capsule 10 mg PO DAILY allergies 11/10/16 [History Last Taken 11/14/16 07:30] cholecalciferol (vitamin D3) 50 mcg (2,000 unit) capsule 2,000 unit PO BID supplement 11/10/16 [History Last Taken Unknown] fluticasone propionate 50 mcg/actuation nasal spray,suspension 1 spray NASAL DAILY PRN Allergies 11/10/16 [History Last Taken Unknown] doxycycline hyclate 100 mg tablet 100 mg PO DAILY antibiotic 10/03/18 [History Last Taken Unknown] simvastatin 10 mg tablet 10 mg PO QHS cholesterol 10/03/18 [History Last Taken Unknown] lansoprazole 15 mg capsule,delayed release 30 mg PO QHS acid reflux 06/14/22 [History Last Taken Unknown] hydrochlorothiazide 25 mg tablet 25 mg PO DAILY BP 06/24/22 [History Last Taken Unknown] warfarin 4 mg tablet 4 mg PO SUFRSA PRN afib 06/24/22 [History Last Taken Unknow n] warfarin 2 mg tablet 2 mg PO afib 06/25/22 [History Last Taken Unknown] acetaminophen 500 mg tablet 1,000 mg PO Q8 #0 tabs 07/18/22 [Rx Last Taken Unknown] bipap #1 ea 12/14/22 [Rx Last Taken Unknown] Allergy/AdvReac Type Severity Reaction Status Date / Time DANIEL Inhibitors Allergy Hives Verified 12/16/22 12:21 ampicillin Allergy Hives Verified 12/16/22 12:21 atorvastatin [From Lipitor] Allergy Other Verified 12/16/22 12:21 chlorophyllin [From Panafil] Allergy Other Verified 12/16/22 12:21 oxycodone [From Percocet] Allergy Upset Verified 12/16/22 12:21 Stomach papain [From Panafil] Allergy Other Verified 12/16/22 12:21 propoxyphene Allergy Upset Verified 12/16/22 12:21 [From Darvocet-N] Stomach urea [From Panafil] Allergy Other Verified 12/16/22 12:21 spironolactone AdvReac Intermediate blood in Verified 12/16/22 12:21 urine Family History Mother CVA (cerebral vascular accident) Diabetes Cancer Bladder Grandmother Heart disease Surgical History History of bilateral cataract extraction History of tonsillectomy and adenoidectomy History of total knee replacement History of total right hip replacement Social History household members: none Smoking Status: Never smoker alcohol intake: never substance use type: does not use caffeine: Yes Type: coffee Number of servings: 3 ROS ROS Narrative Review of systems was unobtainable due to patient's somnolence and lethargy Vital Signs Vital Signs Vital Signs: 12/16/22 12:22 12/16/22 12:25 12/16/22 12:42 Temperature 97.9 F 97.6 F L Temperature Source Temporal Temporal Pulse Rate 79 65 Respiratory Rate 33 H 12 Respiratory Effort Short of Breath Labored Accessory Muscle Use Respiratory Depth Normal Respiratory Pattern Tachypnea Blood Pressure 156/72 H 148/60 H Blood Pressure Mean 100 89 Pulse Ox 95 95 Oxygen Delivery Method Room Air Non-Rebreather Non-Rebreather Oxygen Flow Rate (L/min) 12 12 Fraction of Inspired Oxygen (FIO2) 12/16/22 13:15 12/16/22 13:23 12/16/22 13:18 Temperature Temperature Source Pulse Rate 63 70 Respiratory Rate 30 H Respiratory Effort Respiratory Depth Respiratory Pattern Blood Pressure 149/57 H 133/57 H Blood Pressure Mean 82 Pulse Ox 97 97 Oxygen Delivery Method Non-Rebreather Non-Rebreather Oxygen Flow Rate (L/min) 12 12 Fraction of Inspired Oxygen (FIO2) 100 12/16/22 13:37 12/16/22 14:08 12/16/22 14:10 Temperature 97.0 F L Temperature Source Temporal Pulse Rate 67 66 66 Respiratory Rate 27 H 32 H 32 H Respiratory Effort Respiratory Depth Respiratory Pattern Blood Pressure 135/53 H 135/53 H Blood Pressure Mean 80 80 Pulse Ox 93 93 93 Oxygen Delivery Method Bi-pap Bi-pap Oxygen Flow Rate (L/min) Fraction of Inspired Oxygen (FIO2) 40 12/16/22 14:46 Temperature Temperature Source Pulse Rate 66 Respiratory Rate 33 H Respiratory Effort Respiratory Depth Respiratory Pattern Blood Pressure Blood Pressure Mean Pulse Ox 94 Oxygen Delivery Method Oxygen Flow Rate (L/min) Fraction of Inspired Oxygen (FIO2) 40 Weight Weight: 139.6 kg Body Mass Index (BMI) 46.7 Physical Exam Const Constitutional Narrative: Patient is somnolent and lethargic, she appears older than her stated age, she is morbidly obese Orientation / Consciousness: lethargic HEENT normocephalic and head/scalp atraumatic Neck no JVD and no carotid bruits Resp normal respiratory effort and no retractions Resp Narrative: Patiently is lethargic, she has shallow respirations which are rapid Cardio regular rate, regular rhythm, S1 normal heart sound, S2 normal heart sound and no murmurs Cardio Narrative: There is a 2/6 systolic murmur noted at the apex GI normal to inspection, nondistended, normoactive bowel sounds, soft to palpation and non-tender GI Narrative: Patient is morbidly obese Extremity Extremity Narrative: There is lower leg edema noted bilaterally with signs of lymphedematous changes of the skin. Neuro CN's II-XII intact bilaterally Neuro Narrative: Patient is lethargic and somnolent, she does respond to painful stimuli, she does not carry on a conversation, she is on BiPAP at this time Psych Psych Narrative: Patient is lethargic and somnolent Results Lab / Micro Data Result Diagrams: 12/16/22 12:40 12/16/22 12:40 Labs: Laboratory Results - last 24 hr 12/16/22 12:40: WBC 6.2, RBC 4.08 L, Hgb 12.3, Hct 41.6, MCV 102.0 H, MCH 30.1, MCHC 29.6 L, RDW Std Deviation 54.0 H, RDW Coeff of Bonny 15.3 H, Plt Count 192, MPV 11.0, Immature Gran % (Auto) 1.800 H, Neut % (Auto) 77.1 H, Lymph % (Auto) 12.0 L, Mills % (Auto) 8.2, Eos % (Auto) 0.6, Baso % (Auto) 0.3, Absolute Neuts (auto) 4.8, Absolute Lymphs (auto) 0.75 L, Nucleated RBC % 0.8 12/16/22 12:40: PT 23.4 H, INR 2.1 12/16/22 12:40: Sodium 137, Potassium 4.2, Chloride 92 L, Carbon Dioxide 42.0 H, Anion Gap 3 L, BUN 23 H, Creatinine 0.55, Estim Creat Clear Calc 46.02, Est GFR (MDRD) Af Amer 137, Est GFR (MDRD) Non-Af 114, BUN/Creatinine Ratio 42.0 H, Glucose 125 H, Calcium 9.4, Troponin I High Sens 25 12/16/22 12:40: B-Natriuretic Peptide 409.3 H 12/16/22 12:40: Lactic Acid 0.9 Micro: Microbiology 12/16/22 12:40 Nasal Secretion SARS-CoV-2 & FLU Antigen (Rapid) - Final ABG Data ABG results: ABG 12/16/22 13:25 Specimen Type ART Sample Site R Radial pH 7.26 L Bicarbonate Actual 50.4 H Total CO2 > 50 Base Excess 23 H O2 Saturation 93 L O2 % 100 ABG pCO2 113.0 H* ABG pO2 87 Ray Test Positive O2 Delivery Device NRB Crit Call To/Read Back Yes Assessment & Plan Assessment/Plan (1) Respiratory failure: PLAN: Plan 1. Acute on chronic hypoxic and hypercapnic respiratory failure-patient will be admitted to PCU, BiPAP will be continued, pulse ox will be monitored. #2 acute congestive heart failure-type unknown-patient will be diuresed with IV Lasix, chest x-ray will be repeated tomorrow #3 obstructive sleep apnea-patient is on BiPAP while sleeping #4 essential hypertension-patient's medications will be continued #5 morbid obesity-complicates care, medical course, recovery, and prognosis. #6 generalized debility-PT and OT will see the patient, complicates care, medical course, recovery, and prognosis #7 paroxysmal atrial fibrillation-patient is currently on Coumadin, this will be continued #8 hypercoagulable state secondary to #7-again patient is on Coumadin #9 pulmonary hypertension-complicates care, medical course, recovery, and prognosis I do not believe the patient currently has pneumonia. Total clinical time spent by myself addressing the patient's medical issues, reviewing all of her data, and collaborating with the patient's care team: 75- minute Charges/Coding Visit Charges Inpatient E&M: 46988 Init Hosp L3
[2022-12-16] MEDS: 0.9% Saline Lock 10 ML Syringe IV (17:24)
--- NOTE | 2022-12-16 20:26 | NURSING ---
Patient's heart rate has been dropping as low as 37 on the tele. Pt is asymptomatic. Hr returns to 60's shortly after. Sent message to Dr Vela to inform.
[2022-12-17] VITALS (7 sets, daily range): BP systolic 114–135; BP diastolic 58–73; PULSE 54–76; RESP 10–20; TEMP 35.7–36.6; O2SAT 95–99
[2022-12-17 05:25] LABS: Allen Test Negative; Base Excess > 30 mmol/L (-2 to +2); Bicarbonate 55.7 mmol/L (22-26); Blood Gas Specimen Type ART; FI02 40; Mode BiLevel; O2 Delivery Device BiPAP; PO2 81 mmHG (75-100); RR 10; SITE R Radial; SO2 94 % (95-99); Total Carbon Dioxide > 50 mmol/L; Vt 500; pCO2 98.7 mmHg (35-45); pH 7.36 (7.35-7.45)
--- NOTE | 2022-12-17 05:55 | RAD_ITS ---
STUDY: X-RAY CHEST REASON FOR EXAM: Female, 77 years old. Follow-up of congestive heart failure. TECHNIQUE: Single frontal view of the chest. COMPARISON: December 16, 2022. FINDINGS: Stable chest with cardiomegaly, marked aortic tortuosity with calcification, diffuse interstitial pattern and bilateral pleural effusions, right greater than left. No acute or emergent finding. RAD/Chest 1 View (Portable) IMPRESSION: Stable chest with no acute or emergent finding. Electronically Signed: Chung Vance, at 10:58 EDT ,
--- NOTE | 2022-12-17 06:23 | CPS ---
Critical ABG results reported to ABEL Gomes and called to Dr. Wood. Abg done at 1946
[2022-12-17] MEDS: Furosemide 40 MG/4 ML Vial IV ×3 (06:50→21:55)
[2022-12-17] MEDS: 0.9% Saline Lock 10 ML Syringe IV ×2 (06:51→22:04)
[2022-12-17 07:39] LABS: Absolute Lymphocyte Count 0.91 X10^3/uL (0.83-4.51); Absolute Neutrophil Count 2.8 X10^3/uL (2.0-7.7); Basophil# 0.01 X10^3/uL; Basophil% 0.2 % (0-1); Eosinophil# 0.11 X10^3/uL; Eosinophils% 2.5 % (0-5); Hematocrit 35.9 % (37-47); Hemoglobin 10.7 g/dL (12.0-15.0); Lymphocyte # 0.91 X10^3/ul (0.83-4.51); Lymphocyte % 20.7 % (19-41); Mean Corp Hgb Conc 29.8 g/dL (32-36); Mean Corpuscular Hgb 30.1 pg (27.0-32.0); Mean Corpuscular Volume 100.8 fL (81-99); Monocyte# 0.54 X10^3/uL; Monocyte% 12.3 % (0-10); NRBC Flagged by Analyzer 0 % (0-5); Neutrophil % 63.8 % (47-70); Platelet Count 164 K/mm3 (150-450); RBC Distribution Width CV 15.1 % (11.6-14.6); RBC Distribution Width SD 52.6 fl (35.1-43.9); Red Blood Count 3.56 M/mm3 (4.2-5.4); White Blood Count 4.4 K/mm3 (4.4-11.0)
[2022-12-17 08:00] LABS: Prothrombin Time (Protime)PT. 22.4 SECONDS (11.7-14.9)
[2022-12-17 08:10] LABS: BUN 19 mg/dL (7-18); BUN/Creat Ratio 48.5 RATIO (10-20); Calcium,Total 8.9 mg/dL (8.5-10.1); Carbon Dioxide > 45.0 mmol/L (21.0-32.0); Chloride 88 mmol/L (98-107); Creatinine, Serum 0.39 mg/dL (0.55-1.02); EST Glomerular Filtration Rate 167 mL/min (>60); Est Glom Filt Rate - Afr Amer 202 mL/min (>60); Estimated Creatinine Clearance 46.02 ml/min; Glucose 77 mg/dL (74-106); Potassium 3.6 mmol/L (3.5-5.1); Sodium Level 138 mmol/L (136-145)
[2022-12-17] MEDS: Acetaminophen 500 MG Tablet 1000 MG PO ×2 (13:18→21:55)
[2022-12-17] MEDS: Potassium Chloride Oral Tablet 20 MEQ PO (16:12)
--- NOTE | 2022-12-17 18:35 | PCM.PN.HOSP ---
Reason for Visit Reason for Visit: Diagnoses Respiratory failure, unspecified, unspecified whether with hypoxia or hypercapnia (12/16/22) Subjective Subjective Patient was seen and examined today, she is currently on 3 L of oxygen via nasal cannula, she is alert and responds appropriately to questions, I asked her to think about her CODE STATUS and get back to me when I talk with her next time. Patient is a full code, she states that she has not considered her CODE STATUS recently. Objective Data Objective Data Vital Signs: Vital Signs Temp Pulse Resp BP Pulse Ox O2 Del Method O2 Flow Rate 97.7 F L 76 18 119/73 95 Nasal Cannula 3 12/17/22 15:10 12/17/22 15:10 12/17/22 15:10 12/17/22 15:10 12/17/22 15:10 12/17/22 15:10 12/17/22 15:10 FiO2 30 12/17/22 03:48 Oxygen Flow Rate (L/min) 3 Oxygen Delivery Method Nasal Cannula Weight: 133 kg Body Mass Index (BMI) 44.4 Intake & Output: Intake and Output for Last 24 Hours 12/15/22 12/16/22 12/17/22 23:59 23:59 23:59 Intake Total 600 / 600 Output Total 450 / 3450 5450 / 5450 Balance -450 / -3450 -4850 / -4850 Lab / Micro Data Result Diagrams: 12/17/22 06:20 12/17/22 06:20 Labs: Laboratory Results - last 24 hr 12/17/22 06:20: WBC 4.4, RBC 3.56 L, Hgb 10.7 L, Hct 35.9 L, MCV 100.8 H, MCH 30.1, MCHC 29.8 L, RDW Std Deviation 52.6 H, RDW Coeff of Bonny 15.1 H, Plt Count 164, MPV 11.0, Immature Gran % (Auto) 0.500, Neut % (Auto) 63.8, Lymph % (Auto) 20.7, [place] % (Auto) 12.3 H, Eos % (Auto) 2.5, Baso % (Auto) 0.2, Absolute Neuts (auto) 2.8, Absolute Lymphs (auto) 0.91, Nucleated RBC % 0 12/17/22 06:20: PT 22.4 H, INR 2.0 12/17/22 06:20: Sodium 138, Potassium 3.6, Chloride 88 L, Carbon Dioxide > 45.0 H*, Anion Gap TNP, BUN 19 H, Creatinine 0.39 L, Estim Creat Clear Calc 46.02, Est GFR (MDRD) Af Amer 202, Est GFR (MDRD) Non-Af 167, BUN/Creatinine Ratio 48.5 H, Glucose 77, Calcium 8.9 Micro: Microbiology 12/16/22 12:40 Nasal Secretion SARS-CoV-2 & FLU Antigen (Rapid) - Final ABG Data ABG results: ABG 12/16/22 19:46 Specimen Type ART Sample Site R Radial pH 7.36 Bicarbonate Actual 55.7 H Total CO2 > 50 Base Excess > 30 H O2 Saturation 94 L O2 % 40 ABG pCO2 98.7 H* ABG pO2 81 Ray Test Negative Respiration Rate 10 O2 Delivery Device BiPAP Vent Mode BiLevel Tidal Volume 500 Crit Call To/Read Back Yes Radiography Diagnostic Testing: Radiology Impression Chest X-Ray 12/17/22 05:55 IMPRESSION: Stable chest with no acute or emergent finding. Electronically Signed: Chung Vance, at 10:58 EDT , Physical Exam Narrative Constitutional Narrative: Patient is alert and appropriate, she is morbidly obese Orientation / Consciousness: lethargic HEENT normocephalic and head/scalp atraumatic Neck no JVD and no carotid bruits Resp normal respiratory effort and no retractions Resp Narrative: Patiently alert, she is in no respiratory distress Cardio regular rate, regular rhythm, S1 normal heart sound, S2 normal heart sound and no murmurs Cardio Narrative: There is a 2/6 systolic murmur noted at the apex GI normal to inspection, nondistended, normoactive bowel sounds, soft to palpation and non-tender GI Narrative: Patient is morbidly obese Extremity Extremity Narrative: There is lower leg edema noted bilaterally with signs of lymphedematous changes of the skin. Neuro CN's II-XII intact bilaterally Neuro Narrative: Patient is alert and appropriate, she responds to questions appropriately Psych Psych Narrative: Patient is alert and appropriate Assessment & Plan Assessment/Plan (1) Respiratory failure: PLAN: Plan 1. Acute on chronic hypoxic and hypercapnic respiratory failure-patient appears to have stabilized at this point, she is on nasal cannula oxygen and she is alert and appropriate. We will use BiPAP while she is sleeping. #2 acute congestive heart failure-type unknown-patient will be diuresed with IV Lasix, chest x-ray will be repeated tomorrow #3 obstructive sleep apnea-patient is on BiPAP while sleeping #4 essential hypertension-patient's medications will be continued #5 morbid obesity-complicates care, medical course, recovery, and prognosis. #6 generalized debility-PT and OT will see the patient, complicates care, medical course, recovery, and prognosis #7 paroxysmal atrial fibrillation-patient is currently on Coumadin, this will be continued #8 hypercoagulable state secondary to #7-again patient is on Coumadin #9 pulmonary hypertension-complicates care, medical course, recovery, and prognosis I do not believe the patient currently has pneumonia. Total clinical time spent by myself addressing the patient's medical issues, reviewing all of her data, and collaborating with the patient's care team: 35-minute Charges/Coding Visit Charges Inpatient E&M: 51505 Subs Hosp L2
--- NOTE | 2022-12-17 22:44 | NURSING ---
Patients family Martha called for update. Informed regarding patients status tonight. Also requests phone be more available to the patient. will address with next round.
[2022-12-18 03:15] VITALS: BP 121/50; PULSE 64; RESP 18; TEMP 36.8; O2SAT 94
--- NOTE | 2022-12-18 04:26 | RAD_ITS ---
INDICATION: chf EXAMINATION/TECHNIQUE: X-RAY - XR Chest 1 View COMPARISON: 12/17/22. FINDINGS: LINES/DEVICES: None. LUNGS: Small right and trace left layering effusion. Linear atelectasis in the right lateral lower lung. Patchy airspace opacification medial retrocardiac left lower lung with air bronchograms. No pneumothorax. MEDIASTINUM AND CARDIOVASCULAR STRUCTURES: Borderline cardiomegaly. Mild aortic atherosclerosis. BONES AND SOFT TISSUES: Unremarkable. RAD/Chest 1 View (Portable) IMPRESSION: Small persistent layering effusions with underlying atelectasis and possible consolidation in the left lower lung, not significantly changed from prior. Borderline cardiomegaly Electronically Signed: Demetris Negro MD at 5:23 EDT ,
[2022-12-18] MEDS: Furosemide 40 MG/4 ML Vial IV (05:37)
[2022-12-18] MEDS: Acetaminophen 500 MG Tablet 1000 MG PO ×3 (05:37→21:55)
[2022-12-18] MEDS: 0.9% Saline Lock 10 ML Syringe IV (05:38)
[2022-12-18 05:40] VITALS: BP 116/52
[2022-12-18 06:46] LABS: BUN 18 mg/dL (7-18); BUN/Creat Ratio 42.1 RATIO (10-20); Calcium,Total 8.7 mg/dL (8.5-10.1); Carbon Dioxide > 45.0 mmol/L (21.0-32.0); Chloride 86 mmol/L (98-107); Creatinine, Serum 0.43 mg/dL (0.55-1.02); EST Glomerular Filtration Rate 151 mL/min (>60); Est Glom Filt Rate - Afr Amer 183 mL/min (>60); Estimated Creatinine Clearance 46.02 ml/min; Glucose 97 mg/dL (74-106); Potassium 3.5 mmol/L (3.5-5.1); Sodium Level 136 mmol/L (136-145)
--- NOTE | 2022-12-18 06:59 | NURSING ---
notified dr mobley regarding co2 >45 on am labs no new orders
[2022-12-18 07:40] VITALS: BP 120/50; PULSE 70; RESP 18; TEMP 36.8; O2SAT 94
[2022-12-18] MEDS: Potassium Chloride Oral Tablet 20 MEQ PO ×2 (08:38→17:23)
--- NOTE | 2022-12-18 11:56 | CASEMGMT ---
SW spoke with Pt regarding discharge planning. Pt reports she does not wish to return to [facility]. A list of providers including quality and resource use data and consistent with patient?s preferred geographic region, medical needs, and insurance network were provided from the [facility] Guide. Pt is requesting referral to [facility]. Francheska Hurd [employer], RELIGION PROFESSOR
--- NOTE | 2022-12-18 13:28 | PN.HOSP_ITS ---
Reason for Visit Reason for Visit: Diagnoses Respiratory failure, unspecified, unspecified whether with hypoxia or hypercapn ia (12/16/22) Subjective Subjective Patient was seen and examined today, she is alert and appropriate. She states that she refused to wear her CPAP last night. Speech therapy is in seeing the patient today they recommend a modified barium swallow tomorrow and the patient. Patient's chest x-ray today showed a decrease and pleural effusions, there is atelectasis or infiltrate at the right lung base. Objective Data Objective Data Vital Signs: Vital Signs Temp Pulse Resp BP Pulse Ox O2 Del Method O2 Flow Rate 98.3 F 70 18 120/50 L 94 Nasal Cannula 3 12/18/22 07:40 12/18/22 07:40 12/18/22 07:40 12/18/22 07:40 12/18/22 07:40 12/18/22 09:43 12/18/22 10:50 FiO2 30 12/17/22 03:48 Oxygen Flow Rate (L/min) 3 Oxygen Delivery Method Nasal Cannula Weight: 133 kg Body Mass Index (BMI) 44.4 Intake & Output: Intake and Output for Last 24 Hours 12/16/22 12/17/22 12/18/22 23:59 23:59 23:59 Intake Total 600 / 750 300 / 300 Output Total 450 / 3450 5450 / 6950 4400 / 4400 Balance -450 / -3450 -4850 / -6200 -4100 / -4100 Lab / Micro Data Result Diagrams: 12/17/22 06:20 12/18/22 05:13 Labs: Laboratory Results - last 24 hr 12/18/22 05:13: Sodium 136, Potassium 3.5, Chloride 86 L, Carbon Dioxide > 45.0 H*, Anion Gap TNP, BUN 18, Creatinine 0.43 L, Estim Creat Clear Calc 46.02, Est GFR (MDRD) Af Amer 183, Est GFR (MDRD) Non-Af 151, BUN/Creatinine Ratio 42.1 H, Glucose 97, Calcium 8.7 Micro: Microbiology 12/16/22 12:40 Nasal Secretion SARS-CoV-2 & FLU Antigen (Rapid) - Final Radiography Diagnostic Testing: Radiology Impression Chest X-Ray 12/18/22 04:26 IMPRESSION: Small persistent layering effusions with underlying atelectasis and possible consolidation in the left lower lung, not significantly changed from prior. Borderline cardiomegaly Electronically Signed: Demetris Negro MD at 5:23 EDT , Physical Exam Narrative Patient is alert and appropriate, she is morbidly obese Orientation / Consciousness: Patient is alert and responds appropriately to questions HEENT normocephalic and head/scalp atraumatic Neck no JVD and no carotid bruits Resp normal respiratory effort and no retractions Resp Narrative: Patiently alert, she is in no respiratory distress Cardio regular rate, regular rhythm, S1 normal heart sound, S2 normal heart sound and no murmurs Cardio Narrative: There is a 2/6 systolic murmur noted at the apex GI normal to inspection, nondistended, normoactive bowel sounds, soft to palpation and non-tender GI Narrative: Patient is morbidly obese Extremity Extremity Narrative: There is lower leg edema noted bilaterally with signs of lymphedematous changes of the skin. Neuro CN's II-XII intact bilaterally Neuro Narrative: Patient is alert and appropriate, she responds to questions appropriately Psych Psych Narrative: Patient is alert and appropriate Assessment & Plan Assessment/Plan (1) Respiratory failure: PLAN: Plan 1. Acute on chronic hypoxic and hypercapnic respiratory failure-patient appears to have stabilized at this point, she is on nasal cannula oxygen and she is alert and appropriate. Again patient refused BiPAP last night. She knows that it is recommended that she wear it. Patient will undergo modified barium swallow tomorrow and recommendations will follow from speech based on that. #2 acute congestive heart failure-type unknown-I believe patient can be transitioned over to oral Lasix at this time. #3 obstructive sleep apnea-patient is supposed to be on BiPAP when sleeping, she is noncompliant #4 essential hypertension-patient's medications will be continued #5 morbid obesity-complicates care, medical course, recovery, and prognosis. #6 generalized debility-PT and OT will see the patient, complicates care, medical course, recovery, and prognosis #7 paroxysmal atrial fibrillation-patient is currently on Coumadin, this will be continued #8 hypercoagulable state secondary to #7-again patient is on Coumadin #9 pulmonary hypertension-complicates care, medical course, recovery, and prognosis I do not believe the patient currently has pneumonia. Total clinical time spent by myself addressing the patient's medical issues, reviewing all of her data, and collaborating with the patient's care team: 35- minutes Charges/Coding Visit Charges Inpatient E&M: 63276 Subs Hosp L2
--- NOTE | 2022-12-18 14:21 | CASEMGMT ---
Social Work Referral sent to [facility]. KELI Ontiveros
[2022-12-18 15:00] VITALS: BP 137/61; PULSE 70; RESP 18; TEMP 36.8; O2SAT 97
--- NOTE | 2022-12-18 15:23 | CASEMGMT ---
[facility] called to request PT and OT evaluation to be resent due to being unable to read them. Reuploaded PT and OT Evaluations and sent to [facility]. Francheska Hurd MSW, GEOLOGIST PETROLEUM
[2022-12-18] MEDS: Furosemide 40 MG Tablet PO (17:24)
[2022-12-18 21:55] VITALS: BP 131/50; PULSE 82; RESP 18; TEMP 37.1; O2SAT 94
[2022-12-19] VITALS (8 sets, daily range): BP systolic 119–130; BP diastolic 51–66; PULSE 64–77; RESP 10–20; TEMP 36.4–36.9; O2SAT 91–96
[2022-12-19] MEDS: Acetaminophen 500 MG Tablet 1000 MG PO ×3 (06:06→21:49)
[2022-12-19 07:23] LABS: BUN 16 mg/dL (7-18); BUN/Creat Ratio 30.2 RATIO (10-20); Calcium,Total 8.6 mg/dL (8.5-10.1); Carbon Dioxide > 45.0 mmol/L (21.0-32.0); Chloride 89 mmol/L (98-107); Creatinine, Serum 0.53 mg/dL (0.55-1.02); EST Glomerular Filtration Rate 118 mL/min (>60); Est Glom Filt Rate - Afr Amer 143 mL/min (>60); Estimated Creatinine Clearance 46.02 ml/min; Glucose 113 mg/dL (74-106); Sodium Level 136 mmol/L (136-145)
--- NOTE | 2022-12-19 07:39 | ECHOD_ITS ---
Reason For Study: CHF Procedure This was a 2D Doppler, Color Flow transthoracic echocardiogram. Exam performed portable in patient room. Left Ventricle Normal LV size. The estimated ejection fraction is 65 %. Unable to assess diastolic dysfunction. No regional wall motion abnormalities noted. Right Ventricle Normal RV size. Normal systolic function. Atria The left atrium is moderately enlarged. The right atrium is moderately enlarged. No doppler evidence for ASD. Mitral Valve There is moderate mitral annular calcification. There is no mitral valve stenosis. Trivial mitral valve insufficiency. Tricuspid Valve There is no tricuspid stenosis. Trivial tricuspid valve insufficiency. Pulmonary artery systolic pressure is 60 mmHg. Aortic Valve Trisinus/trileaflet aortic valve. There is no aortic stenosis. No aortic valve insufficiency. Pulmonic Valve There is no pulmonic valvular stenosis. No pulmonic valve insufficiency. Great Vessels Normal aortic root. Pericardium/Pleural No pericardial effusion. Moderate size left pleural effusion. MMode/2D Measurements & Calculations LVIDd: 5.3 cm IVSd: 1.0 cm Ao root diam: 3.1 cm LVIDs: 2.6 cm LVPWd: 0.95 cm LA dimension: 5.4 cm RVDd: 5.2 cm FS: 51.2 % LAV(MOD-bp): 126.6 ml LA A4 area: 31.5 cm2 RA A4 area: 27.1 cm2 LAV(MOD-bp) Indexed: 52.7 ml/m2 LAV(MOD-sp2): 128.2 ml LAV(MOD-sp4): 108.6 ml Time Measurements MV dec time: 0.15 sec Doppler Measurements & Calculations MV E max prince: 128.1 cm/sec Lat Peak E' Prince: 12.3 cm/sec Med Peak E' Prince: 8.2 cm/sec MV A max prince: 47.6 cm/sec E/E' lat: 10.4 E/E' med: 15.5 MV E/A: 2.7 MV V2 max: 138.9 cm/sec MV P1/2t max prince: 140.3 cm/sec Ao V2 max: 167.9 cm/sec MV max P.7 mmHg MV P1/2t: 55.5 msec Ao max P.3 mmHg MV V2 mean: 68.2 cm/sec MV dec slope: 739.8 cm/sec2 Ao V2 mean: 112.6 cm/sec MV mean P.3 mmHg MVA(P1/2t): 4.0 cm2 Ao mean P.0 mmHg MV V2 VTI: 29.6 cm Ao V2 VTI: 35.2 cm AV (velocity ratio): 0.79 AI max prince: 283.1 cm/sec LV V1 max: 141.1 cm/sec MR max prince: 444.8 cm/sec AI max P.1 mmHg LV V1 max P.0 mmHg MR max P.1 mmHg LV V1 mean P.2 mmHg AI dec slope: 126.5 cm/sec2 LV V1 mean: 94.4 cm/sec AI P1/2t: 655.3 msec LV V1 VTI: 27.9 cm PA V2 max: 135.7 cm/sec TR max prince: 364.2 cm/sec PA V2 mean: 90.7 cm/sec TR max P.1 mmHg ECHO/Echo Complete Interpretation Summary The estimated ejection fraction is 65 %. Unable to assess diastolic dysfunction. The left atrium is moderately enlarged. The right atrium is moderately enlarged. Trivial mitral valve insufficiency. Ordering Physician: Jhony Zimmer Referring Physician: Fady Chariez Performed By: Jh Mary RCS
[2022-12-19] MEDS: Furosemide 40 MG Tablet PO (10:29)
[2022-12-19] MEDS: Potassium Chloride Oral Tablet 20 MEQ PO ×2 (10:29→16:57)
--- NOTE | 2022-12-19 12:20 | CASEMGMT ---
AMBROCIO received a call from Suri at [facility]. Suri said she could not view all of the documents in [facility]. AMBROCIO checked and re-attached documents and sent to [facility]. Chloe HUNG
--- NOTE | 2022-12-19 14:21 | ST.MBS ---
Modified Barium Swallow - Patient Information Study Date: 12/19/22 Study Time: 12:30 Direct Billable Minutes: 101 Total Minutes procedure & reportin Diagnosis: Respiratory failure (J96.90), PNA (J18.9) Referring Physician: Constantine Hunter Reason for Referral: Objectively assess swallow function, assess risk for aspiration, and determine recommendations for least restrictive diet textures and compensatory strategies to improve safety of swallow. Medical History: Venice Croft is a 77 yo female who presents to the emergency room at [facility] on 12/16/22 after being transported from [facility] at which she is a resident receiving inpatient rehab services due to shortness of breath and decreased pulse oximetry reading on supplemental oxygen. Patient's pulse ox was 80% on 4 L, she had been seen in the emergency room here 2 days ago and diagnosed with a pneumonia and placed on doxycycline. Patient has an extensive medical history which includes pulmonary hypertension, paroxysmal atrial fibrillation, obstructive sleep apnea, essential hypertension, and morbid obesity. She also has chronic hypoxic respiratory failure and is on 3 L of oxygen at all times. She uses BiPAP when sleeping. RN placed ST consult for swallow evaluation on 12/17/22 d/t pt coughing with thin liquids. Patient was recommended for regular textures / thin liquids but also recommended for MBSS to assess concerns for aspiration due to consistent throat clearing with oral intake. Current Diet Ordered: Regular textures / Thin liquids Dentition: Missing Teeth Mental Status: WNL Respiratory Status: Oxygenating on 4L/M nasal cannula - Penetration-Aspiration Scale Penetration-Aspiration Scale: OBJECTIVE ASSESSMENT OF SWALLOW FUNCTION (QUANTITATIVE ? PER TRIAL): PENETRATION / ASPIRATION SCALE (PAVON): 1 = does not enter airway 2 = enters airway/above vocal folds/ejected 3 = enters airway/above vocal folds/not ejected 4 = enters airway/contacts vocal folds/ejected 5 = enters airway/contacts vocal folds/not ejected 6 = enters airway/below vocal folds/ejected 7 = enters airway/below vocal folds/not ejected despite effort 8 = enters airway/below vocal folds/no effort VIDEOFLOROSCOPIC SCALE SCORE (PAVON): Grade I = aspiration of material that has penetrated into the laryngeal vestibule, intact cough reflex Grade II = aspiration < 10 % of the bolus, intact cough reflex Grade III = aspiration of < 10 % of the bolus, reduced cough reflex or aspiration of > 10 % of the bolus, intact cough reflex Grade IV = aspiration of > 10 % of the bolus, reduced cough reflex - Penetration-Aspiration Scale Score Thin Liquid via teaspoon Result: 1= does not enter airway Thin Liquid via teaspoon Trial 2 Result: 5= enters airways/contacts vocal folds/not ejected Thin Liquid via small single sip from cup Result: 8= enters airway/below vocal folds/no effort Comment: Cued cough and re-swallow after the swallow = somewhat effective in clearing contrast from the laryngeal vestibule. [place] Thick Liquid via teaspoon Result: 2= enter airway/above vocal folds/ejected Pudding via teaspoon Result: 2= enter airway/above vocal folds/ejected [place] Thick Liquid via teaspoon with esophageal screen Result: 2= enter airway/above vocal folds/ejected Thin Liquid via teaspoon with slight recline (chair ~60 degrees) Result: 5= enters airways/contacts vocal folds/not ejected [place] Thick Liquid via cup with slight recline (chair ~60 degrees) Result: 2= enter airway/above vocal folds/ejected [place] Thick Liquid via cup with slight recline (chair ~60 degrees) with Effortful swallow Result: 3= enters airways/above vocal folds/not ejected - Oral Phase Labial Seal: No Labial Escape Tongue Control During Bolus Hold: Posterior escape of greater than half of bolus Bolus Transport/Lingual Motion: Slowed tongue motion Oral Residue: Trace residue lining oral structures - Pharyngeal Phase Initiation of Pharyngeal Swallow: Bolus head in pyriforms Soft Palate Elevation: No bolus between soft palate and pharyngeal wall Laryngeal Elevation: Partial superior movement thyroid cart/partial apprx aryt-epig petiole Anterior Hyoid Excursion: Partial anterior movement Epiglottic Movement: Partial inversion Laryngeal Vestibule Closure at Height of Swallow: Incomplete; narrow column of air/contrast in laryngeal vestibule Pharyngeal Stripping Wave: Absent Pharyngoesophageal Segment Opening: Minimal distension and minimal duration; marked obstruction of flow Tongue Base Retraction: Wide column of contrast between tongue base & post. pharyngeal wall Pharyngeal Residue: Majority of contrast within or on pharyngeal structures - Esophageal Phase Esophageal Clearance: Complete clearance - Treatment Strategies Effects of treatment strategies attemped:: Cough and re-swallow = somewhat effective in clearing contrast from the laryngeal vestibule Effortful swallow = not effective Multiple swallows = somewhat effective Liquid wash = somewhat effective - Diagnosis/Impression Diagnosis: Moderate-severe oropharyngeal phase dysphagia (R13.12) Impression: The oral phase is primarily marked by... -Decreased bolus control with >1/2 of the bolus spilling posteriorly to the pharynx prior to swallow onset. -Slowed tongue motion for A-P transport. -Due to very poor pharyngeal clearance of pudding, did not assess solid textures due to concerns for choking risk. The pharyngeal phase is primarily marked by... -Decreased airway closure during the swallow due to decreased anterior hyoid excursion, partial epiglottic inversion, and decreased laryngeal elevation. -Severely decreased tongue base retraction, severely decreased UES opening/duration, and absent pharyngeal stripping wave with resulting severe pharyngeal residues, especially with textures of thicker viscosities. -SILENT aspiration of thin liquids via cup. Cued cough and re-swallow was somewhat effective in clearing contrast remaining in the laryngeal vestibule after the swallow. Consistent laryngeal penetration across thin and nectar thick liquid consistencies. Thin liquid trials resulted in increased depth of laryngeal penetration to the vocal folds and did not eject from the laryngeal vestibule after the swallow placing the patient at increased risk for post prandial aspiration. [place] thick liquids had decreased depth of laryngeal penetration as compared to thin liquids ? trace residues remained in the laryngeal vestibule after the swallow on the final trial of nectar. - Recommendations Diet: Puree Textures - MOIST, [place]-thick Liquids Comment: Recommend slightly reclining bed/chair due to kyphotic posture, ~60 degrees; cough and re-swallow if wet vocal quality. Compensatory Strategies: Small Bites - 3-5 swallows per bite, Small Sips, Slow Rate, Alternate bites/solids and sips/liquids - 1:1 ratio, Remain sitting upright for 30 minutes after PO intake - ~60 degrees Supervision: 1:1 Close Supervision Recommend Repeat Modified Barium Swallow: Yes Comment: 2-4 weeks after implementation of oropharyngeal exercise program prior to diet advancement of liquids due to SILENT nature of aspiration. Need for Skilled Speech Therapy Services: Yes Comment: Will recommend the patient for intensive dysphagia therapy to address deficits in oropharyngeal swallow function. Consider use of NMES in junction with oropharyngeal strengthening to improve tongue base retraction, laryngeal elevation, hyoid excursion, pharyngeal contraction, and duration of UES opening (Meredith, Effortful swallow, CTAR, Roxana). The patient would benefit from thorough education regarding diet recommendations and recommended compensatory strategies. Would consider the patient for implementation of [place] Free Water Protocol (FFWP) at next level of care, carefully monitoring respiratory status, in order to promote increasedhydration and opportunities for swallowing throughout the day if deemed clinically appropriate by treating DIRECTOR OF ACADEMIC. Recommended Referrals: GI Consult - Consider the patient for GI consult due to severely decreased opening/duration of upper esophageal sphincter. Education Completed: 1. Described result of evaluation., 7. Pt requires further education on strategies & risks. - Status Active ST Patient: Active - Contact Information [facility] Speech Therapy:: Zoe Pinto M.A. [facility]-DIRECTOR OF ACADEMIC Speech-Language Pathologist [facility] [address] [place] [address] [email or web address] [phone] 12/19/22 15:56
--- NOTE | 2022-12-19 15:41 | PCM.PN.HOSP ---
Subjective Subjective Doing well, no issues overnight. She did wear her BiPAP for about 3 hours last night. I discussed the importance of her wearing her BiPAP whenever she is asleep Objective Data Objective Data Vital Signs: Vital Signs Temp Pulse Resp BP Pulse Ox O2 Del Method O2 Flow Rate 97.7 F L 64 18 120/51 L 96 Bi-pap 3 12/19/22 15:00 12/19/22 15:00 12/19/22 15:00 12/19/22 15:00 12/19/22 15:13 12/19/22 15:13 12/19/22 15:00 FiO2 35 12/19/22 15:13 Oxygen Flow Rate (L/min) 3 Oxygen Delivery Method Bi-pap Weight: 293 lb 3.437 oz Body Mass Index (BMI) 44.4 Intake & Output: Intake and Output for Last 24 Hours 12/18/22 12/19/22 12/20/22 03:59 03:59 03:59 Intake Total 750 / 750 250 / 250 Output Total 3950 / 3950 4300 / 4300 650 / 650 Balance -3200 / -3200 -4050 / -4050 -650 / -650 Lab / Micro Data Result Diagrams: 12/17/22 06:20 12/19/22 05:37 Labs: Laboratory Results - last 24 hr 12/19/22 05:37: Sodium 136, Potassium 4.0, Chloride 89 L, Carbon Dioxide > 45.0 H*, Anion Gap TNP, BUN 16, Creatinine 0.53 L, Estim Creat Clear Calc 46.02, Est GFR (MDRD) Af Amer 143, Est GFR (MDRD) Non-Af 118, BUN/Creatinine Ratio 30.2 H, Glucose 113 H, Calcium 8.6 Micro: Microbiology 12/16/22 12:40 Nasal Secretion SARS-CoV-2 & FLU Antigen (Rapid) - Final Radiography Diagnostic Testing: Radiology Impression Echocardiogram 12/19/22 07:39 Interpretation Summary The estimated ejection fraction is 65 %. Unable to assess diastolic dysfunction. The left atrium is moderately enlarged. The right atrium is moderately enlarged. Trivial mitral valve insufficiency. Ordering Physician: Jhony Zimmer Referring Physician: Fady Chairez Performed By: Jh Mary RCS Physical Exam Narrative General: Alert, Oriented x3, Cooperative, No apparent distress HEENT: Atraumatic, PERRLA, EOMI, Normocephalic Oral: Moist Mucosa Neck: Supple, No JVD Lungs: Diminished, Normal air movement, No rhonchi, No wheeze, No rales Cardiovascular: Regular rate, Regular Rhythm, Normal S1, Normal S2, murmurs Abdomen: Soft, Non Tender, Non-Distended, No Hepato-splenomegaly Extremities: Edema, Capillary Refill Less than 3 Seconds Skin: No rashes, No breakdown Musculoskeletal: No Tenderness to Palpation of Joints or Extremities Neurological: Cranial nerves II-XII grossly intact, Motor Exam 5/5 strength throughout, Sensory exam intact to light touch and pain Psych/Mental Status: Normal Affect, Appropriate Assessment & Plan Assessment/Plan (1) Respiratory failure: PLAN: Plan 1. Acute on chronic hypoxic and hypercapnic respiratory failure secondary to acute congestive heart failure likely diastolic/JUSTINA ? She does have chronic hypercapnic respiratory failure she does not comply with CPAP or BiPAP at home ? We will hold her Lasix as her bicarb is significantly elevated at this time and will continue to encourage her to wear her BiPAP which should hopefully solve most of her problems ? I did spend quite a little bit of time discussing with her the importance of her BiPAP. 2. HTN/HLD/paroxysmal A-fib/pulmonary hypertension ? We will resume her home blood pressure patient, her blood pressures have been stable ? Continue with her Coumadin ? We will decrease Lasix to daily dosing as she was not on Lasix at home ? Continue with statin 3. GERD ? Stable ? Continue with PPI DVT: Coumadin Charges/Coding Visit Charges Inpatient E&M: 88922 Subs Hosp L2
[2022-12-19] MEDS: Jantoven 2 MG Tablet PO (16:57)
[2022-12-20 03:50] VITALS: BP 120/58; PULSE 66; RESP 18; TEMP 36.8; O2SAT 96
[2022-12-20 05:15] LABS: Absolute Lymphocyte Count 0.97 X10^3/uL (0.83-4.51); Absolute Neutrophil Count 1.9 X10^3/uL (2.0-7.7); Basophil# 0.01 X10^3/uL; Basophil% 0.3 % (0-1); Eosinophil# 0.11 X10^3/uL; Eosinophils% 3.2 % (0-5); Hematocrit 33.3 % (37-47); Hemoglobin 10.1 g/dL (12.0-15.0); Lymphocyte # 0.97 X10^3/ul (0.83-4.51); Lymphocyte % 27.8 % (19-41); Mean Corp Hgb Conc 30.3 g/dL (32-36); Mean Corpuscular Hgb 30.4 pg (27.0-32.0); Mean Corpuscular Volume 100.3 fL (81-99); Mean Platelet Vol. 10.1 fl (6.2-12.0); Monocyte# 0.52 X10^3/uL; Monocyte% 14.9 % (0-10); NRBC Flagged by Analyzer 0 % (0-5); Neutrophil # 1.87 X10^3/uL (2.7-7.7); Neutrophil % 53.5 % (47-70); Platelet Count 182 K/mm3 (150-450); RBC Distribution Width CV 15.2 % (11.6-14.6); Red Blood Count 3.32 M/mm3 (4.2-5.4); White Blood Count 3.5 K/mm3 (4.4-11.0)
[2022-12-20 05:28] LABS: International Normalized Ratio 1.4; Prothrombin Time (Protime)PT. 17.2 SECONDS (11.7-14.9)
[2022-12-20 05:59] LABS: BUN 14 mg/dL (7-18); BUN/Creat Ratio 36.5 RATIO (10-20); Carbon Dioxide > 45.0 mmol/L (21.0-32.0); Chloride 93 mmol/L (98-107); Creatinine, Serum 0.38 mg/dL (0.55-1.02); EST Glomerular Filtration Rate 171 mL/min (>60); Est Glom Filt Rate - Afr Amer 207 mL/min (>60); Estimated Creatinine Clearance 46.02 ml/min; Glucose 108 mg/dL (74-106); Potassium 3.9 mmol/L (3.5-5.1); Sodium Level 138 mmol/L (136-145)
[2022-12-20] MEDS: Acetaminophen 500 MG Tablet 1000 MG PO ×2 (06:08→14:15)
[2022-12-20 09:03] VITALS: O2SAT 95
[2022-12-20 09:57] VITALS: BP 112/56; PULSE 67; RESP 18; TEMP 37.2; O2SAT 94
[2022-12-20] MEDS: Potassium Chloride Oral Tablet 20 MEQ PO ×2 (09:59→16:42)
[2022-12-20] MEDS: Furosemide 40 MG Tablet PO (09:59)
--- NOTE | 2022-12-20 10:30 | PCM.TXEXTCAR ---
Diet Diet Order/Speech Therapy: 12/19/22 08:50 Diet: Cardiac - Heart Healthy Food consistency:: Pureed Liquid Consistency:: [place]/Mildly Thick Dietary Modifications:: Sodium Restricted Is pt able to select menu?: Yes Fluid restriction:: 1500 mL Diet Comments: MOIST puree, meds crushed in , 1:1 direct sup, alt bites/sips 1:1 ratio Routine Orders/Code Status Routine Lab Work: CBC, BMP and INR Code Status: Full Code Therapies Physical Therapy: Eval and Treat Occupational Therapy: Eval and Treat Speech Therapy: Eval and Treat Problem/Diagnosis (1) Respiratory failure: Status: Acute Code(s): J96.90 - Respiratory failure, unspecified, unspecified whether with hypoxia or hypercapnia Plan 1. Acute on chronic hypoxic and hypercapnic respiratory failure secondary to acute congestive heart failure likely diastolic/JUSTINA ? She does have chronic hypercapnic respiratory failure she does not comply with CPAP or BiPAP at home ? We will hold her Lasix as her bicarb is significantly elevated at this time and will continue to encourage her to wear her BiPAP which should hopefully solve most of her problems ? I did spend quite a little bit of time discussing with her the importance of her BiPAP. 2. HTN/HLD/paroxysmal A-fib/pulmonary hypertension ? We will resume her home blood pressure patient, her blood pressures have been stable ? Continue with her Coumadin ? We will decrease Lasix to daily dosing as she was not on Lasix at home ? Continue with statin 3. GERD ? Stable ? Continue with PPI DVT: Coumadin Allergies/Procedures Done in Hospital Allergies DANIEL Inhibitors Allergy (Verified 12/16/22 12:21) Hives ampicillin Allergy (Verified 12/16/22 12:21) Hives atorvastatin [From Lipitor] Allergy (Verified 12/16/22 12:21) Other ACHING chlorophyllin [From Panafil] Allergy (Verified 12/16/22 12:21) Other oxycodone [From Percocet] Allergy (Verified 12/16/22 12:21) Upset Stomach papain [From Panafil] Allergy (Verified 12/16/22 12:21) Other propoxyphene [From Darvocet-N] Allergy (Verified 12/16/22 12:21) Upset Stomach urea [From Panafil] Allergy (Verified 12/16/22 12:21) Other spironolactone Adverse Reaction (Intermediate, Verified 12/16/22 12:21) blood in urine Procedures: 2-D Echocardiogram Type of Care/Length of Stay Estimated LOS: Convalescent Care Less Than 30 days Type of Care Needed: Skilled Rehab Potential: Good Prognosis: Good Additional Orders/Day of Discharge Day of Discharge: 12/20/22 Dietary and Speech Recommendations Dietitian Recommendations/Changes: Will change diet to cardiac/sodium-restricted with 1500ml FR per day due to CHF. ONS as needed if PO fails at meals. Discharge Plan Admission Admit Date/Time: 12/16/22 13:44 Attending Provider: Jhony Zimmer Primary Care Provider: Jose Miguel Chairez Consulting Providers: Constantine Hunter Discharge Orders/Prescriptions Prescriptions: New furosemide 40 mg Tablet 40 mg PO DAILY Qty: 0 0RF potassium chloride [Klor-Con M20] 20 mEq Tablet,Er Particles/Crystals 20 meq PO BIDCM Qty: 0 0RF Continued lansoprazole 15 mg capsule,delayed release(DR/EC) 30 mg PO QHS fluticasone propionate 1 SPRAY spray,suspension 1 spray NASAL DAILY PRN (Reason: Allergies) cholecalciferol (vitamin D3) 2,000 UNIT capsule 2,000 unit PO BID cetirizine 10 MG capsule 10 mg PO DAILY simvastatin 10 mg tablet 10 mg PO QHS warfarin 4 mg tablet 4 mg PO SUFRSA PRN (Reason: afib) Protocol: Dose Management Condition: Sunday Dose/Route: 1 mg Instruction: 0.5 x 2 mg tablets Condition: Sunday Dose/Route: 0 mg Instruction: 0 tablets Condition: Sunday Dose/Route: 0 mg Instruction: 0 tablets Condition: Sunday Dose/Route: 0 mg Instruction: 0 tablets Condition: Dose/Route: 4 mg Instruction: 1 x 4 mg tablet Condition: Sunday Dose/Route: 4 mg Instruction: 1 x 4 mg tablet Condition: Sunday Dose/Route: 4 mg Instruction: 1 x 4 mg tablet Protocol Text: Adjustment Start Date: Sunday12/13/22 INR Value: 8.0 INR Date: 12/13/22 hydrochlorothiazide 25 mg tablet 25 mg PO DAILY Rx Instructions: TAKE 1 TABLET BY MOUTH EVERY DAY warfarin 2 mg Tablet 2 mg PO Protocol: Dose Management Condition: Sunday Dose/Route: 1 mg Instruction: 0.5 x 2 mg tablets Condition: Sunday Dose/Route: 0 mg Instruction: 0 tablets Condition: Sunday Dose/Route: 0 mg Instruction: 0 tablets Condition: Sunday Dose/Route: 0 mg Instruction: 0 tablets Condition: Dose/Route: 4 mg Instruction: 1 x 4 mg tablet Condition: Sunday Dose/Route: 4 mg Instruction: 1 x 4 mg tablet Condition: Sunday Dose/Route: 4 mg Instruction: 1 x 4 mg tablet Protocol Text: Adjustment Start Date: Sunday12/13/22 INR Value: 8.0 INR Date: 12/13/22 acetaminophen 500 mg Tablet 1,000 mg PO Q8 Qty: 0 0RF (DME) bipap See Rx Instructions .Route .MEDSUPPLY Qty: 1 1RF Rx Instructions: Patient already on BiPAP at home. To be used at night while sleeping. And throughout the day as needed. Discontinued doxycycline hyclate 100 mg tablet 100 mg PO DAILY Referrals / Follow Up: Jose Miguel Chairez MD [Primary Care Provider] - Kendall Boyer DO [Med Staff - Active Staff] - Within 3 Months Disposition Disposition (needs filled in before D/C Order can be placed): Shelter Facility
--- NOTE | 2022-12-20 10:34 | CASEMGMT ---
SW met with patient. Introduced self and role at [facility]. SW let patient know that [facility] is able to accept her. Patient asked SW about the other facility on [address] in [place]. SW told patient SW was not aware patient had another choice. AMBROCIO was able to confirm patient would like a referral to [facility]. AMBROCIO sent a referral to [facility] via [facility]. Chloe Viera CASE FILLER ABHILASH
--- NOTE | 2022-12-20 11:39 | DS.PCM_ITS ---
Providers Date of Admission: 12/16/22 Primary Care Physician: Dr. Jose Miguel Chaierz MD Reason For Visit: CHF, HYPOXIA Diagnosis Discharge Diagnosis (1) Respiratory failure: Status: Acute Code(s): J96.90 - Respiratory failure, unspecified, unspecified whether with hypoxia or hypercapnia Medications at Discharge Home Medications cetirizine 10 mg capsule 10 mg PO DAILY allergies 11/10/16 cholecalciferol (vitamin D3) 50 mcg (2,000 unit) capsule 2,000 unit PO BID supplement 11/10/16 fluticasone propionate 50 mcg/actuation nasal spray,suspension 1 spray NASAL DAILY PRN Allergies 11/10/16 simvastatin 10 mg tablet 10 mg PO QHS cholesterol 10/03/18 lansoprazole 15 mg capsule,delayed release 30 mg PO QHS acid reflux 06/14/22 hydrochlorothiazide 25 mg tablet 25 mg PO DAILY BP 06/24/22 warfarin 4 mg tablet 4 mg PO SUFRSA PRN afib 06/24/22 warfarin 2 mg tablet 2 mg PO WE afib 06/25/22 acetaminophen 500 mg tablet 1,000 mg PO Q8 #0 tabs 07/18/22 bipap #1 ea 12/14/22 furosemide 40 mg tablet 40 mg PO DAILY #0 tabs 12/20/22 potassium chloride 20 mEq tablet,extended release(part/cryst) (Klor-Con M) 20 meq PO BIDCM #0 tabs 12/20/22 Hospital Course Operations None Procedures 2-D Echocardiogram Summary of Care Provided Minutes Spent on Discharge: 34 Hospital Course: Per HPI: ELIGIO ALANIS, is a 77 F who presents to the emergency room at [facility] at which she is a resident receiving inpatient rehab services due to shortness o f breath and decreased pulse oximetry reading on supplemental oxygen.? Patient's pulse ox was 80% on 4 L, she had been seen in the emergency room here 2 days ago and diagnosed with a pneumonia and placed on doxycycline.? Patient has an extensive medical history which includes pulmonary hypertension, paroxysmal atrial fibrillation, obstructive sleep apnea, essential hypertension, and morbid obesity.? She also has chronic hypoxic respiratory failure and is on 3 L of oxygen at all times.? She uses BiPAP when sleeping. Evaluation in the ER revealed the patient to be somnolent and lethargic, an ABG was obtained which showed the patient to be hypercapnic with a PCO2 of 113, patient's PO2 was 87 t his was 100% O2 on a nonrebreather.? Patient's chest x-ray showed evidence of CHF with bilateral pleural effusions.? Patient's lab revealed a normal white blood cell count at 6.2, chemistry was for the most part unremarkable except for BUN of 23 and a glucose of 125.? Patient's beta nitric peptide was elevated at 409. Patient was placed on BiPAP, she was given 40 of Lasix IV, she will be admitted to PCU for acute congestive heart failure acute hypercapnic and hypoxic respiratory failure.? Patient will be maintained on BiPAP, IV Lasix will be administered, patient is a full code according to usp information. Hospital Course: 1. Acute on chronic hypoxic and hypercapnic respiratory failure secondary to acute congestive heart failure likely diastolic/JUSTINA ? She does have chronic hypercapnic respiratory failure she does not comply with CPAP or BiPAP at home ? We will hold her Lasix as her bicarb is significantly elevated at this time and will continue to encourage her to wear her BiPAP which should hopefully solve most of her problems ? She does have an elevated bicarb secondary to a significantly elevated CO2 on her ABG. ? Echo demonstrated an EF of 65% and a pulmonary artery systolic pressure of 60 mmHg ? I did spend quite a little bit of time discussing with her the importance of her BiPAP. ? I discussed with her the possibility of discharge today to transition to SNF, she expressed understanding of the risk and benefits of going and would like to go today. I continue to readdress with her the importance of BiPAP at night while she is sleeping but also during the day when she is taking a nap. 2. HTN/HLD/paroxysmal A-fib/pulmonary hypertension ? We will resume her home blood pressure patient, her blood pressures have been stable ? Continue with her Coumadin ? We will decrease Lasix to daily dosing as she was not on Lasix at home ? Continue with statin 3. GERD ? Stable ? Continue with PPI Physical Exam Narrative General: Alert, Oriented x3, Cooperative, No apparent distress HEENT: Atraumatic, PERRLA, EOMI, Normocephalic Oral: Moist Mucosa Neck: Supple, No JVD Lungs: Diminished, Normal air movement, No rhonchi, No wheeze, No rales Cardiovascular: Regular rate, Regular Rhythm, Normal S1, Normal S2, murmurs Abdomen: Soft, Non Tender, Non-Distended, No Hepato-splenomegaly Extremities: Edema, Capillary Refill Less than 3 Seconds Skin: No rashes, No breakdown Musculoskeletal: No Tenderness to Palpation of Joints or Extremities Neurological: Cranial nerves II-XII grossly intact, Motor Exam 5/5 strength throughout, Sensory exam intact to light touch and pain Psych/Mental Status: Normal Affect, Appropriate Weight / BMI Weight Weight: 293 lb 3.437 oz Body Mass Index (BMI) 44.4 ABG / Lab / Microbiology Data Result Diagrams: 12/20/22 04:48 12/20/22 04:48 Laboratory: Laboratory Results - last 24 hr 12/20/22 04:48: WBC 3.5 L, RBC 3.32 L, Hgb 10.1 L, Hct 33.3 L, MCV 100.3 H, MCH 30.4, MCHC 30.3 L, RDW Std Deviation 55.0 H, RDW Coeff of Bonny 15.2 H, Plt Count 182, MPV 10.1, Immature Gran % (Auto) 0.300, Neut % (Auto) 53.5, Lymph % (Auto) 27.8, Cache % (Auto) 14.9 H, Eos % (Auto) 3.2, Baso % (Auto) 0.3, Absolute Neuts (auto) 1.9 L, Absolute Lymphs (auto) 0.97, Nucleated RBC % 0 12/20/22 04:48: PT 17.2 H, INR 1.4 12/20/22 04:48: Sodium 138, Potassium 3.9, Chloride 93 L, Carbon Dioxide > 45.0 H*, Anion Gap TNP, BUN 14, Creatinine 0.38 L, Estim Creat Clear Calc 46.02, Est GFR (MDRD) Af Amer 207, Est GFR (MDRD) Non-Af 171, BUN/Creatinine Ratio 36.5 H, Glucose 108 H, Calcium 9.0 Microbiology: Microbiology 12/16/22 12:40 Nasal Secretion SARS-CoV-2 & FLU Antigen (Rapid) - Final Meaningful Use Info Meaningful Use Diagnoses (Choose all that apply): None applicable Discharge Plan Admission Admit Date/Time: 12/16/22 13:44 Attending Provider: Jhony Zimmer Primary Care Provider: Jose Miguel Chairez Consulting Providers: Constantine Hunter Discharge Orders/Prescriptions Prescriptions: New furosemide 40 mg Tablet 40 mg PO DAILY Qty: 0 0RF potassium chloride [Klor-Con M20] 20 mEq Tablet,Er Particles/Crystals 20 meq PO BIDCM Qty: 0 0RF Continued lansoprazole 15 mg capsule,delayed release(DR/EC) 30 mg PO QHS fluticasone propionate 1 SPRAY spray,suspension 1 spray NASAL DAILY PRN (Reason: Allergies) cholecalciferol (vitamin D3) 2,000 UNIT capsule 2,000 unit PO BID cetirizine 10 MG capsule 10 mg PO DAILY simvastatin 10 mg tablet 10 mg PO QHS warfarin 4 mg tablet 4 mg PO SUFRSA PRN (Reason: afib) Protocol: Dose Management Condition: Sunday Dose/Route: 1 mg Instruction: 0.5 x 2 mg tablets Condition: Sunday Dose/Route: 0 mg Instruction: 0 tablets Condition: Sunday Dose/Route: 0 mg Instruction: 0 tablets Condition: Sunday Dose/Route: 0 mg Instruction: 0 tablets Condition: Dose/Route: 4 mg Instruction: 1 x 4 mg tablet Condition: Sunday Dose/Route: 4 mg Instruction: 1 x 4 mg tablet Condition: Sunday Dose/Route: 4 mg Instruction: 1 x 4 mg tablet Protocol Text: Adjustment Start Date: Sunday12/13/22 INR Value: 8.0 INR Date: 12/13/22 hydrochlorothiazide 25 mg tablet 25 mg PO DAILY Rx Instructions: TAKE 1 TABLET BY MOUTH EVERY DAY warfarin 2 mg Tablet 2 mg PO Protocol: Dose Management Condition: Sunday Dose/Route: 1 mg Instruction: 0.5 x 2 mg tablets Condition: Sunday Dose/Route: 0 mg Instruction: 0 tablets Condition: Sunday Dose/Route: 0 mg Instruction: 0 tablets Condition: Sunday Dose/Route: 0 mg Instruction: 0 tablets Condition: Dose/Route: 4 mg Instruction: 1 x 4 mg tablet Condition: Sunday Dose/Route: 4 mg Instruction: 1 x 4 mg tablet Condition: Sunday Dose/Route: 4 mg Instruction: 1 x 4 mg tablet Protocol Text: Adjustment Start Date: Sunday12/13/22 INR Value: 8.0 INR Date: 12/13/22 acetaminophen 500 mg Tablet 1,000 mg PO Q8 Qty: 0 0RF (DME) bipap See Rx Instructions .Route .MEDSUPPLY Qty: 1 1RF Rx Instructions: Patient already on BiPAP at home. To be used at night while sleeping. And throughout the day as needed. Discontinued doxycycline hyclate 100 mg tablet 100 mg PO DAILY Referrals / Follow Up: Jose Miguel Chairez MD [Primary Care Provider] - Kendall Boyer DO [Med Staff - Active Staff] - Within 3 Months Disposition Disposition (needs filled in before D/C Order can be placed): Alf Facility Charges/Coding Visit Charges Inpatient E&M: 39535 Disch Hosp >30min
--- NOTE | 2022-12-20 12:18 | CASEMGMT ---
AMBROCIO called [facility] and Francheska is reviewing patient's referral. Chloe Viera CENTRAL SUPPLY AIDE ABHILASH
--- NOTE | 2022-12-20 12:32 | CASEMGMT ---
Addendum entered by Chloe Viera 12/20/22 12:49: AMBROCIO let patient know [facility] declined patient. SW let patient know that [facility] accepted and physician will discharge her today. AMBROCIO let patient know about wheelchair transport not being covered by insurance. Patient asked if the [facility] would transport her. SW asked about oxygen. Patient said she could have family bring in her O2. SW will find agency in [place] patient is talking about to see if they would transport. Chloe HUNG Original Note: [facility] declined patient. AMBROCIO will let patient know and she will go to [facility] her second choice. Chloe HUNG
[2022-12-20 12:46] VITALS: O2SAT 94
--- NOTE | 2022-12-20 13:11 | CASEMGMT ---
Called [facility] at request of the patient regarding transportation to [place]. They reported no transport available out of town advance notice. Pt agreed to have SW set up transport to [place]. Francheska Hurd REPAIR DEPARTMENT SUPERVISOR, ARABIC PROFESSOR
--- NOTE | 2022-12-20 13:37 | CASEMGMT ---
SW let patient know that SW will set up transport and no one has to bring anything to [facility] in order for her to go. AMBROCIO told patient that someone will need to get her bipap to [place]. Chloe HUNG
[2022-12-20 14:13] VITALS: BP 121/65; PULSE 69; RESP 18; TEMP 37; O2SAT 95
--- NOTE | 2022-12-20 14:42 | CASEMGMT ---
AMBROCIO called [facility] and arranged for patient to get picked up at [facility] via wheelchair van. AMBROCIO notified patient care secretary. AMBROCIO Pritchard notified patient. AMBROCIO will notify RN. AMBROCIO sent orders and machine operator picker time to [facility]. Await COVID test. AMBROCIO notified Alaina at [facility] that patient will not be returning. Plan: d/c to [facility] under skilled level of care. Physicians will transport via wheelchair van. Chloe HUNG
--- NOTE | 2022-12-20 15:18 | CASEMGMT ---
AMBROCIO sent patient's negative COVID test to [facility] via [facility]. Chloe Viera BOILER TESTER ABHILASH
--- NOTE | 2022-12-20 16:31 | NURSING ---
Report called to [facility] at 1629 to Domi ROMAN.
[2022-12-20] MEDS: Jantoven 2 MG Tablet PO (16:42)
== END 2022-12-20 17:29 | disposition skilled nursing facility (03) | DRG 291 ==
LOC: ED 13:48 → PCU 14:12
PROVIDERS: Admitting Provider Internal Medicine; Emergency Provider Emergency Medicine; PCP Family Medicine; Visit Provider Family Medicine
DX: I11.0 Hypertensive heart disease with heart failure (principal); J96.21 Acute and chronic respiratory failure with hypoxia; I50.31 Acute diastolic (congestive) heart failure; J96.22 Acute and chronic respiratory failure with hypercapnia; D68.69 Other thrombophilia; Z68.42 Body mass index [BMI] 45.0-49.9, adult; I27.20 Pulmonary hypertension, unspecified; R62.7 Adult failure to thrive; I48.0 Paroxysmal atrial fibrillation; E66.01 Morbid (severe) obesity due to excess calories; E78.00 Pure hypercholesterolemia, unspecified; G47.33 Obstructive sleep apnea (adult) (pediatric); K21.9 Gastro-esophageal reflux disease without esophagitis; R53.81 Other malaise; Z91.199 Patient's noncompliance with other medical treatment and regimen due to unspecified reason; Z99.81 Dependence on supplemental oxygen; Z79.01 Long term (current) use of anticoagulants; Z79.899 Other long term (current) drug therapy
CPT/HCPCS: 36415; 36600; 51702; 71045; 74230; 80048; 80053; 81001; 82803; 83605; 83880; 84484; 85025; 85610; 87040; 87426; 87428; 92526; 92610; 92611; 93005; 93306; 94002; 94003; 94640; 94762; 97110; 97162; 97166; 97530; 97535; 99252; 99285; P9612; A4216; G0463; J1940

== ENCOUNTER 2022-12-23 03:22 | Inpatient (IN) | payer MEDICARE, OTHER, SELFPAY ==
[2022-12-23] VITALS (35 sets, daily range): BP systolic 97–124; BP diastolic 44–67; PULSE 44–103; RESP 10–18; TEMP 35.6–36.8; O2SAT 93–100; BMI 40.8; BMI 39.9
--- NOTE | 2022-12-23 03:48 | CT_ITS ---
INDICATION: Altered mental status EXAMINATION: CT BRAIN - CT Head or Brain W/O Contrast Injection TECHNIQUE: Multiple axial images were obtained of the head without intravenous contrast. A radiation dose optimization technique was used for this scan. IV Contrast dosage and agent: None. RADIATION DOSAGE (If Supplied By Facility): CTDIvol = ( 44.99 ) mGy, DLP = ( 829.85 ) mGycm COMPARISON: CT head 06/23/2022 FINDINGS: BRAIN: No acute bleed. Subtle loss of perez-white matter differentiation throughout the cerebral hemispheres. While this may be technical, smaller size of the ventricles and sulci support edema. No midline shift. VENTRICLES AND SULCI: Ventricles are small size, decreased size compared to prior. Fewer sulci compared to the prior. EXTRA-AXIAL: No hemorrhage, fluid collection, or mass. CALVARIUM / SKULL BASE: Unremarkable. FACE/SINUSES: Unremarkable. SOFT TISSUES: Unremarkable. CT/Brain/Head without Contrast IMPRESSION: Subtle findings suggest diffuse cerebral edema with increased intracranial pressure. Possible hypoxic ischemic injury. No bleed. CT angiogram and/or MRI may be helpful for further evaluation. N.B. : The above Results were Read Back by Jane Soto MD to Sergio De La Torre DO, and understanding confirmed on 12/23/2022 04:40:07 (ET). Electronically Signed: Jane Soto MD at 4:41 EDT ,
--- NOTE | 2022-12-23 03:51 | EX.ED.DYSGE1 ---
HPI History of Present Illness Chief Complaint: Unresponsive Informant: family Limited: coma Onset/Context/Timing Onset: Today Timing: Continuous Narrative Narrative: Patient presents being unresponsive that was noticed earlier this morning. Patient's last known well was around midnight. Patient began having difficulty breathing this morning. [facility] staff contacted the nurse practitioner for the extended care facility. Patient was placed on BiPAP at that time. Patient's oxygen saturation only improved minimally. Nurse practitioner was contacted again the patient was referred to the emergency department. Upon EMS arrival, [facility] staff was doing CPR. EMS continued CPR and placed a Abraham airway. EMS administered epinephrine and defibrillated the patient. EMS was able to get a return of spontaneous circulation with a pulse. I talked with the patient's cousin who is her power of estate attorney for healthcare. She states she visited with the patient yesterday afternoon and the patient was able to sit up and was talking without any difficulty. She states the patient does have ongoing chronic medical conditions with her breathing. [facility] Medical History BiPAP (biphasic positive airway pressure) dependence Bleeding ulcer Essential hypertension Generalized weakness GERD (gastroesophageal reflux disease) Inability to walk Left anterior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 assisted current use of anticoagulant Non-smoker On home oxygen therapy JUSTINA on CPAP Paroxysmal atrial fibrillation Poliomyelitis Pulmonary hypertension Pure hypercholesterolemia Right bundle branch block (RBBB) Home Medications cetirizine 10 mg capsule 10 mg PO DAILY allergies 11/10/16 [History Last Taken 11/14/16 07:30] cholecalciferol (vitamin D3) 50 mcg (2,000 unit) capsule 2,000 unit PO BID supplement 11/10/16 [History Last Taken Unknown] fluticasone propionate 50 mcg/actuation nasal spray,suspension 1 spray NASAL DAILY PRN Allergies 11/10/16 [History Last Taken Unknown] simvastatin 10 mg tablet 10 mg PO QHS cholesterol 10/03/18 [History Last Taken Unknown] lansoprazole 15 mg capsule,delayed release 30 mg PO QHS acid reflux 06/14/22 [History Last Taken Unknown] hydrochlorothiazide 25 mg tablet 25 mg PO DAILY BP 06/24/22 [History Last Taken Unknown] warfarin 4 mg tablet 4 mg PO FR PRN afib 06/24/22 [History Last Taken Unknown] warfarin 2 mg tablet 2 mg PO afib 06/25/22 [History Last Taken Unknown] acetaminophen 500 mg tablet 1,000 mg PO Q8 #0 tabs 07/18/22 [Rx Last Taken Unknown] bipap #1 ea 12/14/22 [Rx Last Taken Unknown] furosemide 40 mg tablet 40 mg PO DAILY #0 tabs 12/20/22 [Rx Last Taken Unknown] potassium chloride 20 mEq tablet,extended release(part/cryst) (Klor-Con M) 20 meq PO BIDCM #0 tabs 12/20/22 [Rx Last Taken Unknown] Allergy/AdvReac Type Severity Reaction Status Date / Time DANIEL Inhibitors Allergy Hives Verified 12/23/22 03:35 ampicillin Allergy Hives Verified 12/23/22 03:35 atorvastatin [From Lipitor] Allergy Other Verified 12/23/22 03:35 chlorophyllin [From Panafil] Allergy Other Verified 12/23/22 03:35 oxycodone [From Percocet] Allergy Upset Verified 12/23/22 03:35 Stomach papain [From Panafil] Allergy Other Verified 12/23/22 03:35 propoxyphene Allergy Upset Verified 12/23/22 03:35 [From Darvocet-N] Stomach urea [From Panafil] Allergy Other Verified 12/23/22 03:35 spironolactone AdvReac Intermediate blood in Verified 12/23/22 03:35 urine Family History Mother CVA (cerebral vascular accident) Diabetes Cancer Bladder Grandmother Heart disease Surgical History History of bilateral cataract extraction History of tonsillectomy and adenoidectomy History of total knee replacement History of total right hip replacement Social History household members: none housing: [facility] Smoking Status: Never smoker alcohol intake: never substance use type: does not use caffeine: Yes Type: coffee Number of servings: 3 ROS ROS ED Review of Systems ROS Unobtainable: due to endotracheal tube, due to mental condition and due to mental status EXAM Physical Exam Const Vital Signs: 12/23/22 03:23 12/23/22 03:36 12/23/22 03:52 Temperature 98.2 F Temperature Source Temporal Pulse Rate 79 103 H Respiratory Rate 17 Respiratory Pattern Blood Pressure 115/58 L 109/51 L Blood Pressure Mean 77 70 Pulse Ox 98 96 Oxygen Delivery Method Ambu-Bag Mechanical Ventilator Mechanical Ventilator Fraction of Inspired Oxygen (FIO2) 50 12/23/22 04:01 12/23/22 04:22 12/23/22 04:30 Temperature 96.5 F L 96.4 F L Temperature Source Core Core Pulse Rate 95 87 Respiratory Rate 14 14 Respiratory Pattern Blood Pressure 111/51 L 108/44 L Blood Pressure Mean 71 65 Pulse Ox 95 94 Oxygen Delivery Method Mechanical Ventilator Mechanical Ventilator Mechanical Ventilator Fraction of Inspired Oxygen (FIO2) 50 50 50 12/23/22 03:40 12/23/22 04:52 12/23/22 05:00 Temperature Temperature Source Pulse Rate 94 99 67 Respiratory Rate 14 18 18 Respiratory Pattern Normal Normal Blood Pressure 105/48 L Blood Pressure Mean 67 Pulse Ox 98 94 94 Oxygen Delivery Method Mechanical Ventilator Fraction of Inspired Oxygen (FIO2) 50 50 Positive obese Nutritional Appearance: obese HEENT Reports moist mucous membranes Neck supple and no JVD Cardio regular rate Rhythm: abnormal rhythm irregularly irregular GI non-distended Palpation: soft Extremity General Extremety ED: Yes edema General Extremity: edema Neuro Sensorium / Orientation: lethargic Sepsis Attestation Sepsis Attestation: Agree w/Sepsis Date exam was performed: 12/23/22 Time exam was performed: 03:15 Possible Source of Sepsis: Genitourinary Sepsis Organ Dysfunction Criteria Present: Acute Respiratory Failure (New need for BiPAP/CPAP or MV), Lactic Acid > 2 mmol/L and New/Unexplained change in mental status MDM MDM MDM Narrative Medical decision making narrative: Differential diagnosis includes cardiac dysrhythmia, cardiac ischemia, myocardial infarction, stroke, hypoglycemia, hyperglycemia, intracranial bleeding, sepsis, pneumonia, and urinary tract infection. CT scan of the brain will be obtained to assess for stroke and intracranial bleeding. Chest x-ray will be obtained to assess for congestive heart failure and pneumonia. EKG will be obtained to assess for cardiac dysrhythmia and cardiac ischemia. CBC will be obtained to assess for anemia and leukocytosis. Comprehensive metabolic profile will be obtained to assess for renal function, hepatic function, and electrolyte abnormality. Lactate will be obtained to assess for sepsis. PT with INR and PTT will be obtained to assess for coagulopathy. Urinalysis will be obtained to assess for urinary tract infection. BNP will be obtained to assess for congestive heart failure. Blood cultures will be obtained to assess for sepsis. Urine culture will be obtained to assess for urinary tract infection. Arterial blood gas will be obtained to assess for oxygenation status. Lab Data Attestation: I reviewed the patient's lab results. Lab results narrative: Arterial blood gas was reviewed. pH was 7.26, PCO2 is 98.4, PO2 of 77.6, bicarb was 44.3, oxygen saturation was 91.7% with an FiO2 of 50% tidal volume of 450 respiratory rate of 16 and a PEEP of 5. CBC was reviewed. There is a mild anemia with a hemoglobin of 11.9. PT with INR was reviewed. Pro time was 16.5 and INR is 1.4. PTT was reviewed and was normal at 33.7. Comprehensive metabolic profile was reviewed. AST was elevated at 500 and ALT was 307. Glucose was slightly elevated at 196. Serum lactate was reviewed. This was elevated at 6.4. BNP was reviewed. This was mildly elevated at 216.8. This was improved from previous result. Urinalysis was reviewed. Leukocyte esterase was 100 with positive nitrites. There were 50-100 red blood cells and 50-100 white blood cells. There is 4+ bacteria. Labs: Laboratory Results - last 24 hr 12/23/22 12/23/22 12/23/22 03:25 03:25 03:25 WBC 9.0 RBC 3.93 L Hgb 11.9 L Hct 42.4 MCV 107.9 H D MCH 30.3 MCHC 28.1 L RDW Std Deviation 58.9 H RDW Coeff of Bonny 15.0 H Plt Count 217 MPV 10.4 Neut % (Auto) Not Reportable Absolute Neuts (auto) 5.9 Absolute Lymphs (auto) 1.98 Total Counted 100 Neutrophils % (Manual) 66 Lymphocytes % (Manual) 22 Monocytes % (Manual) 5 Eosinophils % (Manual) 2 Metamyelocytes % 3 H Myelocytes % 1 H Promyelocytes % 1 H Diff Path Review May foll Platelet Estimate ADEQUATE Plt Morphology Comment GIANT Stomatocytes 1+ PT 16.5 H INR 1.4 APTT 33.7 Sodium 138 Potassium 4.6 Chloride 92 L Carbon Dioxide 41.0 H Anion Gap 5 BUN 14 Creatinine 0.93 Estim Creat Clear Calc 49.48 Est GFR (MDRD) Af Amer 75 Est GFR (MDRD) Non-Af 62 BUN/Creatinine Ratio 15.1 Glucose 196 H Lactic Acid Calcium 8.7 Total Bilirubin 0.80 AST 500 H ALT 307 H Alkaline Phosphatase 115 B-Natriuretic Peptide Total Protein 6.7 Albumin 2.5 L Globulin 4.2 Albumin/Globulin Ratio 0.6 L Urine Color Urine Clarity Urine pH Ur Specific [place] Urine Protein Urine Glucose (UA) Urine Ketones Urine Occult Blood Urine Nitrite Urine Bilirubin Urine Urobilinogen Ur Leukocyte Esterase Urine RBC Urine WBC Ur Squamous Epith Cells Urine Bacteria Hyaline Casts Urine Mucus POC Glucose 12/23/22 12/23/22 12/23/22 03:25 03:25 04:02 WBC RBC Hgb Hct MCV MCH MCHC RDW Std Deviation RDW Coeff of Bonny Plt Count MPV Neut % (Auto) Absolute Neuts (auto) Absolute Lymphs (auto) Total Counted Neutrophils % (Manual) Lymphocytes % (Manual) Monocytes % (Manual) Eosinophils % (Manual) Metamyelocytes % Myelocytes % Promyelocytes % Diff Path Review Platelet Estimate Plt Morphology Comment Stomatocytes PT INR APTT Sodium Potassium Chloride Carbon Dioxide Anion Gap BUN Creatinine Estim Creat Clear Calc Est GFR (MDRD) Af Amer Est GFR (MDRD) Non-Af BUN/Creatinine Ratio Glucose Lactic Acid 6.4 H* Calcium Total Bilirubin AST ALT Alkaline Phosphatase B-Natriuretic Peptide 216.8 H Total Protein Albumin Globulin Albumin/Globulin Ratio Urine Color Urine Clarity Urine pH Ur Specific [place] Urine Protein Urine Glucose (UA) Urine Ketones Urine Occult Blood Urine Nitrite Urine Bilirubin Urine Urobilinogen Ur Leukocyte Esterase Urine RBC Urine WBC Ur Squamous Epith Cells Urine Bacteria Hyaline Casts Urine Mucus POC Glucose 172 H 12/23/22 04:31 WBC RBC Hgb Hct MCV MCH MCHC RDW Std Deviation RDW Coeff of Bonny Plt Count MPV Neut % (Auto) Absolute Neuts (auto) Absolute Lymphs (auto) Total Counted Neutrophils % (Manual) Lymphocytes % (Manual) Monocytes % (Manual) Eosinophils % (Manual) Metamyelocytes % Myelocytes % Promyelocytes % Diff Path Review Platelet Estimate Plt Morphology Comment Stomatocytes PT INR APTT Sodium Potassium Chloride Carbon Dioxide Anion Gap BUN Creatinine Estim Creat Clear Calc Est GFR (MDRD) Af Amer Est GFR (MDRD) Non-Af BUN/Creatinine Ratio Glucose Lactic Acid Calcium Total Bilirubin AST ALT Alkaline Phosphatase B-Natriuretic Peptide Total Protein Albumin Globulin Albumin/Globulin Ratio Urine Color Yellow Urine Clarity Cloudy Urine pH 6.0 Ur Specific [place] 1.020 Urine Protein 500 H Urine Glucose (UA) 100 H Urine Ketones 5 H Urine Occult Blood 250 H Urine Nitrite Positive H Urine Bilirubin Negative Urine Urobilinogen 1 H Ur Leukocyte Esterase 100 H Urine RBC 50-100 SEEN Urine WBC 50-100 SEEN Ur Squamous Epith Cells 5-10 SEEN Urine Bacteria 4+ Hyaline Casts 0-5 SEEN Urine Mucus 0 SEEN POC Glucose ABG Data ABG results: ABG 12/23/22 04:41 Specimen Type ART Sample Site R Radial pH 7.26 L Bicarbonate Actual 44.3 H Total CO2 47 Base Excess 17 H O2 Saturation 92 L O2 % 50 ABG pCO2 98.4 H* ABG pO2 78 Ray Test Positive Respiration Rate 16 O2 Delivery Device ET Tube Vent Mode AC Tidal Volume 450 POC PEEP 5 Crit Call To/Read Back Yes Radiography Chest X-Ray - ED: 1 View, Read by ED Physician, Read by Radiologist, Chronic Changes and Right Effusion Diagnostic Testing: Clinical Impression(s) from Imaging Studies Brain CT 12/23/22 03:48 IMPRESSION: Subtle findings suggest diffuse cerebral edema with increased intracranial pressure. Possible hypoxic ischemic injury. No bleed. CT angiogram and/or MRI may be helpful for further evaluation. N.B. : The above Results were Read Back by Jane Soto MD to Sergio De La Torre DO, and understanding confirmed on 12/23/2022 04:40:07 (ET). Electronically Signed: Jane Soto MD at 4:41 EDT Reading Location ID and State: [address] [place] [address] Tel , Service support , ADDENDUM: 12/23/22 0448 IMPRESSION: Subtle findings suggest diffuse cerebral edema with increased intracranial pressure. Possible hypoxic ischemic injury. No bleed. CT angiogram and/or MRI may be helpful for further evaluation. N.B. : The above Results were Read Back by Jane Soto MD to Sergio De La Torre DO, and understanding confirmed on 12/23/2022 04:40:07 (ET). Electronically Signed: Jane Soto MD at 4:41 EDT Reading Location ID and State: [facility] / [place] Tel , Service support , Chest X-Ray 12/23/22 04:20 IMPRESSION: Satisfactory ET tube positioning. Mild airspace disease increased with no change in the right pleural effusion. Electronically Signed: Jane Soot MD at 4:56 EDT , CT scan of the brain was obtained. There is diffuse cerebral edema with increased intracranial pressure possibly from hypoxic injury. This was interpreted by the radiologist and was also independently reviewed by myself. Portable 1 view chest x-ray was obtained. On my independent interpretation, lung bain showed mildly increased airspace disease. There is a right pleural effusion which is stable. ET tube is in good position. There is normal cardiac silhouette. Bony thorax is normal. There is no acute process noted. Radiologist also interpreted the x-ray and agrees. EKG Initial EKG: Attestation: I personally reviewed and interpreted this EKG as follows: Interpretation: Atrial Flutter (89), RBBB and Non-Specific ST Changes Comments: EKG was obtained. On my interpretation, it shows atrial flutter with a variable block with a rate of 89. There is a right bundle branch block pattern noted. There is left ventricular hypertrophy. QRS interval was prolonged at 142 ms. QTc interval was 484 ms. There is left axis deviation at -59. There are nonspecific ST-T wave changes. Prior EKG tracings: available for review Prior: Unchanged (12/16/2022) Treatment and Re-Evaluation :: The Abraham airway was removed. Patient was intubated with a 7.5 ET tube to 23 cm at the lip using a glide scope. There is good color change on capnography. There are equal breath sounds bilaterally. Patient's respiratory rate was increased to 18 on the ventilator. Patient was started on Zosyn and vancomycin here in the emergency department. Case was discussed with the hospitalist. She will admit the patient to ICU. Family understands and is agreeable with the plan. All questions were answered. 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, Discussing w/Consultants, Arranging Admission or Transfer and Performing Direct Patient Care at Bedside Discharge Plan Triage Chief Complaint: Unresponsive ED Provider: Sergio De La Torre Dx/Rx/DC Orders Clinical Impression: Respiratory failure, Atrial fibrillation, Urinary tract infection, Severe sepsis Prescriptions: No Action lansoprazole 15 mg capsule,delayed release(DR/EC) 30 mg PO QHS fluticasone propionate 1 SPRAY spray,suspension 1 spray NASAL DAILY PRN (Reason: Allergies) cholecalciferol (vitamin D3) 2,000 UNIT capsule 2,000 unit PO BID cetirizine 10 MG capsule 10 mg PO DAILY simvastatin 10 mg tablet 10 mg PO QHS warfarin 4 mg tablet 4 mg PO SUFRSA PRN (Reason: afib) Protocol: Dose Management Condition: Sunday Dose/Route: 1 mg Instruction: 0.5 x 2 mg tablets Condition: Sunday Dose/Route: 0 mg Instruction: 0 tablets Condition: Sunday Dose/Route: 0 mg Instruction: 0 tablets Condition: Sunday Dose/Route: 0 mg Instruction: 0 tablets Condition: Dose/Route: 4 mg Instruction: 1 x 4 mg tablet Condition: Sunday Dose/Route: 4 mg Instruction: 1 x 4 mg tablet Condition: Sunday Dose/Route: 4 mg Instruction: 1 x 4 mg tablet Protocol Text: Adjustment Start Date: Sunday12/13/22 INR Value: 8.0 INR Date: 12/13/22 hydrochlorothiazide 25 mg tablet 25 mg PO DAILY Rx Instructions: TAKE 1 TABLET BY MOUTH EVERY DAY warfarin 2 mg Tablet 2 mg PO Protocol: Dose Management Condition: Sunday Dose/Route: 1 mg Instruction: 0.5 x 2 mg tablets Condition: Sunday Dose/Route: 0 mg Instruction: 0 tablets Condition: Sunday Dose/Route: 0 mg Instruction: 0 tablets Condition: Sunday Dose/Route: 0 mg Instruction: 0 tablets Condition: Dose/Route: 4 mg Instruction: 1 x 4 mg tablet Condition: Sunday Dose/Route: 4 mg Instruction: 1 x 4 mg tablet Condition: Sunday Dose/Route: 4 mg Instruction: 1 x 4 mg tablet Protocol Text: Adjustment Start Date: Sunday12/13/22 INR Value: 8.0 INR Date: 12/13/22 acetaminophen 500 mg Tablet 1,000 mg PO Q8 Qty: 0 0RF (DME) bipap See Rx Instructions .Route .MEDSUPPLY Qty: 1 1RF Rx Instructions: Patient already on BiPAP at home. To be used at night while sleeping. And throughout the day as needed. furosemide 40 mg Tablet 40 mg PO DAILY Qty: 0 0RF potassium chloride [Klor-Con M20] 20 mEq Tablet,Er Particles/Crystals 20 meq PO BIDCM Qty: 0 0RF Primary Care Provider: Jose Miguel Chairez Referrals: Jose Miguel Chairez MD [Primary Care Provider] - Disposition Disposition: Acute Care Hospital [facility]
[2022-12-23 04:02] LABS: Hematocrit 42.4 % (37-47); Hemoglobin 11.9 g/dL (12.0-15.0); Mean Corp Hgb Conc 28.1 g/dL (32-36); Mean Corpuscular Hgb 30.3 pg (27.0-32.0); Mean Corpuscular Volume 107.9 fL (81-99); Mean Platelet Vol. 10.4 fl (6.2-12.0); POSITIVE COUNT YES; POSITIVE MORPHOLOGY YES; Platelet Count 217 K/mm3 (150-450); RBC Distribution Width SD 58.9 fl (35.1-43.9); Red Blood Count 3.93 M/mm3 (4.2-5.4)
--- NOTE | 2022-12-23 04:20 | RAD_ITS ---
INDICATION: Dyspnea EXAMINATION/TECHNIQUE: X-RAY - XR Chest 1 View AP portable. 4:13 AM. COMPARISON: 12/18/2022. FINDINGS: LINES/DEVICES: Tip of endotracheal tube is 2 cm above the serge. NG tube tip in the stomach. Defibrillator pads monitoring leads overlying the chest. LUNGS: Patchy alveolar infiltrates bilaterally increased. Consolidation at the left lung base is decreased. Small right pleural effusion unchanged. No pneumothorax. MEDIASTINUM: Aorta atherosclerotic. CARDIAC SILHOUETTE: Top normal size. BONES AND SOFT TISSUES: No acute abnormalities. RAD/Chest 1 View (Portable) IMPRESSION: Satisfactory ET tube positioning. Mild airspace disease increased with no change in the right pleural effusion. Electronically Signed: Jane Soto MD at 4:56 EDT ,
[2022-12-23 04:21] LABS: Bedside Glucose 172 mg/dL (74-106)
[2022-12-23 04:25] LABS: International Normalized Ratio 1.4; Prothrombin Time (Protime)PT. 16.5 SECONDS (11.7-14.9)
[2022-12-23 04:26] LABS: Partial Thromboplast Time 33.7 Seconds (24.1-36.2)
[2022-12-23 04:28] LABS: Differential Indicated MANUAL DIFF
[2022-12-23 04:29] LABS: ALB/GLOB Ratio 0.6 RATIO (0.9-2.4); AST(SGOT) 500 U/L (15-37); Alanine Aminotransfer ALT/SGPT 307 U/L (13-56); Albumin, Serum 2.5 g/dL (3.2-5.0); Alkaline Phosphatase 115 U/L (45-117); Anion Gap 5 (5-15); BUN 14 mg/dL (7-18); BUN/Creat Ratio 15.1 RATIO (10-20); Calcium,Total 8.7 mg/dL (8.5-10.1); Chloride 92 mmol/L (98-107); Creatinine, Serum 0.93 mg/dL (0.55-1.02); EST Glomerular Filtration Rate 62 mL/min (>60); Est Glom Filt Rate - Afr Amer 75 mL/min (>60); Estimated Creatinine Clearance 49.48 ml/min; Globulin 4.2 g/dL (2.2-4.2); Glucose 196 mg/dL (74-106); Potassium 4.6 mmol/L (3.5-5.1); Protein, Total 6.7 g/dL (6.4-8.2); Sodium Level 138 mmol/L (136-145)
[2022-12-23 04:43] LABS: Lactic Acid 6.4 mmol/L (0.4-1.9)
[2022-12-23 04:45] LABS: Allen Test Positive; Base Excess 17 mmol/L (-2 to +2); Bicarbonate 44.3 mmol/L (22-26); Blood Gas Specimen Type ART; FI02 50; Mode AC; O2 Delivery Device ET Tube; PEEP 5; PO2 78 mmHG (75-100); RR 16; SITE R Radial; SO2 92 % (95-99); Total Carbon Dioxide 47 mmol/L; Vt 450; pCO2 98.4 mmHg (35-45); pH 7.26 (7.35-7.45)
[2022-12-23 04:51] LABS: Mucous, Urine 0 SEEN /hpf (<or=2+)
[2022-12-23 04:55] LABS: Glucose, Dipstick 100 mg/dl (Normal); Ketone-Dipstick 5 mg/dl (Negative); Leukocyte Esterase-Dipstick 100 /ul (Negative); Nitrite-Dipstick Positive (Negative); Occult Blood-Urine 250 /ul (Negative); Protein-Dipstick 500 mg/dl (Negative); Urine Bilirubin Dipstick Negative (Negative); Urine Urobilinogen 1 mg/dl (Normal)
--- NOTE | 2022-12-23 04:57 | CPS ---
Critical ABG values, Dr. De La Torre aware.
[2022-12-23 04:59] LABS: Color, Urine Yellow (Yellow); Urine Clarity Cloudy (Clear)
[2022-12-23 05:02] LABS: Eosinophil 2 % (0-5); Lymphocyte 22 % (19-41); Metamyelocyte 3 % (0-1); Monocyte 5 % (0-10); Myelocyte 1 % (0-0); Neutrophil-Segmented 66 % (47-70); Platelet Estimate ADEQUATE (ADEQ); Platelet Morphology GIANT; Promyelocyte 1 % (0-0); Stomatocyte 1+; Total Cells Counted 100 (MANUAL DIFF)
[2022-12-23 05:04] LABS: Absolute Lymphocyte Count 1.98 X10^3/uL (0.83-4.51); Absolute Neutrophil Count 5.9 X10^3/uL (2.0-7.7)
[2022-12-23 05:06] LABS: BNP,B-Type NATRIURETIC PEPTIDE 216.8 pg/mL (0-100)
--- NOTE | 2022-12-23 05:12 | CT_ITS ---
STUDY: CTA CHEST REASON FOR EXAM: Female, 77 years old. Hypoxia RADIATION DOSAGE (If Supplied By Facility): CTDIvol = ( 31.45 ) mGy, DLP = ( 517.19 ) mGycm TECHNIQUE: The examination was performed with the intravenous administration of IV 100mL Isovue-370. Post-processing of the angiographic images was performed, with multiplanar reformation and 3D reconstruction. Individualized dose optimization techniques were used for this CT. COMPARISON: None. FINDINGS: Indications: Respiratory motion. Artifact from dense contrast in the SVC. LUNGS: Partial compressive atelectasis bilateral lower lobes, and upper lobes. Groundglass opacities throughout the remainder of the lungs with slight septal thickening. Dependent material within the trachea at the serge likely secretions PLEURA: Moderate right pleural effusion, smaller left pleural effusion. No pneumothorax. PULMONARY VESSELS: No definite pulmonary emboli identified. MEDIASTINUM: Unremarkable. HEART: Enlarged. AORTA/GREAT VESSELS: Thoracic aorta is normal caliber. Suboptimal opacification of the aorta limits evaluation for dissection. UPPER ABDOMEN: No acute findings. BONES/SOFT TISSUES: No acute findings. OTHER: Tip of the endotracheal tube just above the serge. NG tube tip in stomach. CT/CTA Chest W/WO Contrast IMPRESSION: 1. No definite evidence of pulmonary emboli. 2. Mild pulmonary edema. Bilateral pleural effusions and compressive atelectasis. Superimposed pneumonia not excluded. Electronically Signed: Jane Soto MD at 7:27 EDT ,
[2022-12-23 05:15] LABS: Bacteria 4+ /hpf (None Seen); Hyaline Cast 0-5 SEEN /lpf (0-5); Red Blood Cells-Urine 50-100 SEEN /hpf (0-5); Squamous Epithelial Cells - UA 5-10 SEEN /hpf (5-10); White Blood Cells 50-100 SEEN /hpf (0-5)
--- NOTE | 2022-12-23 05:22 | US_ITS ---
INDICATION: UTI EXAMINATION: Ultrasound US Kidney(s) complete (eg, kidneys and bladder) TECHNIQUE: Parker scale and color doppler images were obtained of the kidneys. COMPARISON: None. FINDINGS: RIGHT KIDNEY: 12.1 x 5.5 x 5.2 cm. There is no hydronephrosis 0.8 x 0.6 x 0.5 cm cortical cyst within the upper pole. LEFT KIDNEY: 12.0 x 5.2 x 5.9 cm.. There is no hydronephrosis. 0.7 x 0.6 x 0.6 cm lower pole cortical cyst. URINARY BLADDER: Not imaged. US/Kidney and Bladder IMPRESSION: Small simple cysts of the right left kidney detailed above. No evidence of calculus or hydronephrosis. Electronically Signed: Constantine Gilbert MD, PAOLO at 12:40 EDT ,
--- NOTE | 2022-12-23 05:22 | MRI_ITS ---
STUDY: MRI BRAIN WITHOUT CONTRAST REASON FOR EXAM: Female, 77 years old. Anoxia, pt unresponsive, intubated TECHNIQUE: Standardized multiplanar fat and water weighted pulse sequences were obtained. COMPARISON: CT 12/23/2022. HEMISPHERES, CEREBELLUM AND BRAINSTEM: Mild cortical and central atrophy. There is moderate chronic microvascular ischemic change adjacent to the atrium and occipital horns of lateral ventricles. In addition multiple foci of increased signal intensity are seen throughout the nicholas radiata and frontal centrum semiovale both hemispheres measuring up to 1.2 cm in diameter consistent with moderate chronic microvascular ischemic change. The diffusion-weighted/echoplanar imaging demonstrates no evidence of acute ischemia. There is no evidence of acute infarct. The subtle loss of the perez-white differentiation seen on prior CT corresponds to white matter disease referenced above. PITUITARY: Infundibulum and pituitary have normal configuration. Midline structures appear normal. CSF SPACES: Appropriate for age. No hydrocephalus. Basal cisterns are patent. VESSELS: 1. There are normal flow voids noted in the great vessels at the skull base ORBITS AND PARANASAL SINUSES: 1. Both globes, extraocular muscles, optic nerves and retrobulbar fat appear unremarkable. 2. Moderate bilateral mastoid air cell disease. Mucous retention cyst or polyp posterior inferior left maxillary sinus 1.2 cm in diameter. BONY ELEMENTS: Bony elements of the cranial vault, facial skeleton and skull base have normal appearance. SCALP AND SOFT TISSUES: Normal appearance of the soft tissues of the scalp and the visualized face OTHER: None MRI/Brain without Contrast IMPRESSION: No evidence of intracranial hemorrhage. No evidence of acute infarct. Mild cortical and central atrophy. Moderate chronic microvascular ischemic change. Moderate bilateral mastoid air cell disease. Probable mucous retention cyst less likely polyp inferior left maxillary sinus. Electronically Signed: Constantine Gilbert MD, PAOLO at 12:34 EDT ,
--- NOTE | 2022-12-23 05:24 | PCM.HP.STD ---
HPI - General General Date of Admission: 12/23/22 Date of Service: 12/23/22 Chief Complaint: Unresponsiveness HPI Narrative ELIGIO ALANIS, is a 77 F who presented emergency department at [facility] due to unresponsiveness. She was seen normal around midnight and was watching television. Evidently around 3 AM she started having difficulty breathing was found to have oxygen saturations at 50%. Nurse practitioner was called that covers for the extended care facility and they were instructed to place her on BiPAP at that time. Oxygen saturations only improved minimally from about 50% to 70% and the nurse practitioner again was contacted and referred the patient to the emergency department. Upon arrival from the nursing facility the squad was doing CPR. A Abraham airway was placed and she was given epinephrine and defibrillated. ROSC was achieved. The emergency department physician did talk to the patient's cousin who is her healthcare power of trust and estates attorney and evidently she visited the patient yesterday afternoon and she was able to sit up and talk without having any difficulty on her baseline oxygen of 3 L. Mental status was at baseline. Family did indicate she had a lot of of chronic medical conditions. Vital signs at the time of arrival demonstrated temperature of 98.2, heart rate 79, blood pressure 115/58, and patient's oxygen saturations were 98% with an Ambu bag via a Abraham airway. Patient was intubated at that time. CBC shows a normal white count with an anemia showing a hemoglobin of 11.9 that is stable when compared to previous. Coagulation studies were performed as the patient is chronically on Coumadin her INR was 1.4 the last time she was found to be therapeutic was on 12/17/2022 at which time she was 2.0. ABG after intubation showed a pH of 7.26 with a PCO2 of 98.4 and a PO2 of 78 demonstrating a sat of 98%. I am unclear how long it was from the time of intubation to the time that this ABG was obtained. Chemistry panel shows chronic bicarb elevation at baseline with hyperglycemia showing a glucose of 196. Liver enzymes are elevated with an AST of 500 and ALT of 307. They were previously normal. Bilirubin is normal. Alk phos is normal. Ammonia level is 28. Initial troponin was 29. BNP was mildly elevated to 16.8 however this is improved from previous admission. UA is suggestive of infection showing nitrite leuk esterase white cells and 4+ bacteria. CT of the brain shows subtle findings suggestive of diffuse cerebral edema with increased intracranial pressure and possible hypoxic/ischemic injury with no bleeding. Chest x-ray shows mild airspace disease that was increased and a small right pleural effusion with ET tube in place in satisfactory condition. After ROSC achieved and airway in place patient work-up was pursued and cultures were obtained. She was started on vancomycin and Zosyn. [facility] Medical History Anemia BiPAP (biphasic positive airway pressure) dependence Bleeding ulcer Essential hypertension Generalized weakness GERD (gastroesophageal reflux disease) Inability to walk Left anterior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 long-term current use of anticoagulant Non-smoker On home oxygen therapy JUSTINA on CPAP Paroxysmal atrial fibrillation Poliomyelitis Pulmonary hypertension Pure hypercholesterolemia Right bundle branch block (RBBB) Home Medications cetirizine 10 mg capsule 10 mg PO DAILY allergies 11/10/16 [History Last Taken 11/14/16 07:30] cholecalciferol (vitamin D3) 50 mcg (2,000 unit) capsule 2,000 unit PO BID supplement 11/10/16 [History Last Taken Unknown] fluticasone propionate 50 mcg/actuation nasal spray,suspension 1 spray NASAL DAILY PRN Allergies 11/10/16 [History Last Taken Unknown] simvastatin 10 mg tablet 10 mg PO QHS cholesterol 10/03/18 [History Last Taken Unknown] lansoprazole 15 mg capsule,delayed release 30 mg PO QHS acid reflux 06/14/22 [History Last Taken Unknown] hydrochlorothiazide 25 mg tablet 25 mg PO DAILY BP 06/24/22 [History Last Taken Unknown] warfarin 2 mg tablet 2 mg PO afib 06/25/22 [History Last Taken Unknown] bipap #1 ea 12/14/22 [Rx Last Taken Unknown] acetaminophen 500 mg tablet 1,000 mg PO Q8 pain 12/23/22 [History Last Taken Unknown] furosemide 40 mg tablet 40 mg PO DAILY diuretic 12/23/22 [History Last Taken Unknown] potassium chloride 20 mEq tablet,extended release(part/cryst) (Klor-Con M) 20 meq PO BIDCM supplement 12/23/22 [History Last Taken Unknown] Allergy/AdvReac Type Severity Reaction Status Date / Time DANIEL Inhibitors Allergy Hives Verified 12/23/22 03:35 ampicillin Allergy Hives Verified 12/23/22 03:35 atorvastatin [From Lipitor] Allergy Other Verified 12/23/22 03:35 chlorophyllin [From Panafil] Allergy Other Verified 12/23/22 03:35 oxycodone [From Percocet] Allergy Upset Verified 12/23/22 03:35 Stomach papain [From Panafil] Allergy Other Verified 12/23/22 03:35 propoxyphene Allergy Upset Verified 12/23/22 03:35 [From Darvocet-N] Stomach urea [From Panafil] Allergy Other Verified 12/23/22 03:35 spironolactone AdvReac Intermediate blood in Verified 12/23/22 03:35 urine Family History Mother CVA (cerebral vascular accident) Diabetes Cancer Bladder Grandmother Heart disease Surgical History History of bilateral cataract extraction History of tonsillectomy and adenoidectomy History of total knee replacement History of total right hip replacement Social History household members: none housing: [facility] Smoking Status: Never smoker alcohol intake: never substance use type: does not use caffeine: Yes Type: coffee Number of servings: 3 ROS Review of Systems ROS Unobtainable: due to endotracheal tube and due to mental status Vital Signs Vital Signs Vital Signs: 12/23/22 03:23 12/23/22 03:36 12/23/22 03:52 Temperature 98.2 F Temperature Source Temporal Pulse Rate 79 103 H Respiratory Rate 17 Respiratory Pattern Blood Pressure 115/58 L 109/51 L Blood Pressure Mean 77 70 Pulse Ox 98 96 Oxygen Delivery Method Ambu-Bag Mechanical Ventilator Mechanical Ventilator Fraction of Inspired Oxygen (FIO2) 50 12/23/22 04:01 12/23/22 04:22 12/23/22 04:30 Temperature 96.5 F L 96.4 F L Temperature Source Core Core Pulse Rate 95 87 Respiratory Rate 14 14 Respiratory Pattern Blood Pressure 111/51 L 108/44 L Blood Pressure Mean 71 65 Pulse Ox 95 94 Oxygen Delivery Method Mechanical Ventilator Mechanical Ventilator Mechanical Ventilator Fraction of Inspired Oxygen (FIO2) 50 50 50 12/23/22 03:40 12/23/22 04:52 12/23/22 05:00 Temperature Temperature Source Pulse Rate 94 99 67 Respiratory Rate 14 18 18 Respiratory Pattern Normal Normal Blood Pressure 105/48 L Blood Pressure Mean 67 Pulse Ox 98 94 94 Oxygen Delivery Method Mechanical Ventilator Fraction of Inspired Oxygen (FIO2) 50 50 Weight Weight: 122 kg Body Mass Index (BMI) 40.8 Physical Exam Const Constitutional Narrative: Morbidly obese, elderly white female, lying in bed, patient intubated on ventilator, no sedation-obtunded HEENT normocephalic, head/scalp atraumatic and moist oral mucous membranes HEENT Narrative: ET tube in place Eyes conjunctivae normal Eyes Narrative: Pupils are pinpoint with no significant reactivity-no medications given Neck no lymphadenopathy, supple and no carotid bruits Neck Narrative: Trachea midline, no thyroid enlargement Resp No normal respiratory effort, no retractions, no use of accessory muscles and No clear to auscultation bilaterally Resp Narrative: Patient with rhonchi in the right base anteriorly and posteriorly but clear otherwise Auscultation: rhonchi; Negative for rales or wheezes Cardio regular rate; Negative for S1 normal heart sound, S2 normal heart sound, no murmurs, no rub, no gallops or no clicks Cardio Narrative: Rhythm is irregularly irregular but rate is controlled GI normal to inspection, nondistended, normoactive bowel sounds, soft to palpation and non-tender Extremity Extremity Narrative: Patient with trace bilateral lower extremity edema, slightly pitting, no cyanosis or clubbing Skin no wounds, skin turgor normal, no jaundice, no petechiae and no mottling Skin Narrative: Skin is pale, well-healed bilateral incisions over knees from total knee arthroplasties Neuro Neuro Narrative: Patient intubated with no sedation, corneal reflexes absent, no gag reflex, no cough with suctioning, pupils are pinpoint nonreactive without medication, patient does not react to any noxious stimuli Speech: Negative for speech normal Psych Psych Narrative: Unable to assess Results Lab / Micro Data Attestation: I reviewed the patient's lab results. Result Diagrams: 12/23/22 03:25 12/23/22 03:25 Labs: Laboratory Results - last 24 hr 12/23/22 03:25: WBC 9.0, RBC 3.93 L, Hgb 11.9 L, Hct 42.4, MCV 107.9 H D, MCH 30.3, MCHC 28.1 L, RDW Std Deviation 58.9 H, RDW Coeff of Bonny 15.0 H, Plt Count 217, MPV 10.4, Neut % (Auto) Not Reportable, Absolute Neuts (auto) 5.9, Absolute Lymphs (auto) 1.98, Total Counted 100, Neutrophils % (Manual) 66, Lymphocytes % (Manual) 22, Monocytes % (Manual) 5, Eosinophils % (Manual) 2, Metamyelocytes % 3 H, Myelocytes % 1 H, Promyelocytes % 1 H, Diff Path Review May foll, Platelet Estimate ADEQUATE, Plt Morphology Comment GIANT, Stomatocytes 1+ 12/23/22 03:25: PT 16.5 H, INR 1.4, APTT 33.7 12/23/22 03:25: Sodium 138, Potassium 4.6, Chloride 92 L, Carbon Dioxide 41.0 H, Anion Gap 5, BUN 14, Creatinine 0.93, Estim Creat Clear Calc 49.48, Est GFR (MDRD) Af Amer 75, Est GFR (MDRD) Non-Af 62, BUN/Creatinine Ratio 15.1, Glucose 196 H, Calcium 8.7, Total Bilirubin 0.80, AST 500 H, ALT 307 H, Alkaline Phosphatase 115, Total Protein 6.7, Albumin 2.5 L, Globulin 4.2, Albumin/Globulin Ratio 0.6 L 12/23/22 03:25: Lactic Acid 6.4 H* 12/23/22 03:25: B-Natriuretic Peptide 216.8 H 12/23/22 04:02: POC Glucose 172 H 12/23/22 04:31: Urine Color Yellow, Urine Clarity Cloudy, Urine pH 6.0, Ur Specific [place] 1.020, Urine Protein 500 H, Urine Glucose (UA) 100 H, Urine Ketones 5 H, Urine Occult Blood 250 H, Urine Nitrite Positive H, Urine Bilirubin Negative, Urine Urobilinogen 1 H, Ur Leukocyte Esterase 100 H, Urine RBC 50-100 SEEN, Urine WBC 50-100 SEEN, Ur Squamous Epith Cells 5-10 SEEN, Urine Bacteria 4+, Hyaline Casts 0-5 SEEN, Urine Mucus 0 SEEN ABG Data ABG results: ABG 12/23/22 04:41 Specimen Type ART Sample Site R Radial pH 7.26 L Bicarbonate Actual 44.3 H Total CO2 47 Base Excess 17 H O2 Saturation 92 L O2 % 50 ABG pCO2 98.4 H* ABG pO2 78 Ray Test Positive Respiration Rate 16 O2 Delivery Device ET Tube Vent Mode AC Tidal Volume 450 POC PEEP 5 Crit Call To/Read Back Yes Radiology Impression Brain CT 12/23/22 03:48 IMPRESSION: Subtle findings suggest diffuse cerebral edema with increased intracranial pressure. Possible hypoxic ischemic injury. No bleed. CT angiogram and/or MRI may be helpful for further evaluation. N.B. : The above Results were Read Back by Jane Soto MD to Sergio De La Torre DO, and understanding confirmed on 12/23/2022 04:40:07 (ET). Electronically Signed: Jane Soto MD at 4:41 EDT Reading Location ID and State: [facility] / [place] Tel , Service support , ADDENDUM: 12/23/22 0448 IMPRESSION: Subtle findings suggest diffuse cerebral edema with increased intracranial pressure. Possible hypoxic ischemic injury. No bleed. CT angiogram and/or MRI may be helpful for further evaluation. N.B. : The above Results were Read Back by Jane Soto MD to Sergio De La Torre DO, and understanding confirmed on 12/23/2022 04:40:07 (ET). Electronically Signed: Jane Soto MD at 4:41 EDT , Chest X-Ray 12/23/22 04:20 IMPRESSION: Satisfactory ET tube positioning. Mild airspace disease increased with no change in the right pleural effusion. Electronically Signed: Jane Soto MD at 4:56 EDT , Assessment & Plan Assessment/Plan (1) Acute on chronic respiratory failure with hypoxia and hypercapnia: (2) Transaminitis: (3) Subtherapeutic international normalized ratio (INR): (4) Lactic acidosis: (5) Hyperglycemia: (6) UTI (urinary tract infection): (7) Anoxic brain injury: (8) Toxic metabolic encephalopathy: (9) Metabolic acidosis with respiratory acidosis: PLAN: Plan Acute on chronic hypoxic and hypercapnic respiratory failure etiology is currently unclear -Chronic failure due to JUSTINA/obesity hypoventilation syndrome/chronic diastolic heart failure -Patient on 3 L nasal cannula at baseline and PCO2 baseline is about 70 based on previous ABGs -50% on her baseline 3 L at the nursing facility--> placed on BiPAP with improvement into the 70s--> timeframe of hypoxia is unclear but appears to be prolonged -Intubated on arrival and Abraham airway placed by squad -Continue mechanical ventilation and wean as able -No current need for sedation--> monitor -Check CTA of the chest as patient has had subtherapeutic INR and was found to be severely hypoxic -Currently pending -As needed albuterol -Does not appear to be markedly volume overloaded at this time -Consult pulmonary/critical care medicine Metabolic acidosis with respiratory acidosis -Due to hypercapnia and lactic acid elevation -Should improve with mechanical ventilation -Repeat ABG Lactic acidosis -Patient does not appear to have UTI however does not meet sepsis criteria -Suspect lactate elevation is due to prolonged hypoxia and should improve rapidly -Repeat lactate per protocol Toxic/metabolic encephalopathy versus anoxic encephalopathy -CT is suggestive of anoxia -Patient was markedly hypercapnic as well -We will check MRI of brain -Check EEG -Check toxicology screen -If patient with severe anoxic brain injury would recommend terminal extubation and comfort care measures Transaminitis -Suspect related to anoxia and ischemia with hypoxia -We will check Tylenol level -Repeat transaminases in a.m. -Repeat INR in a.m. Urinary tract infection -Start vancomycin and Zosyn with recent hospitalization -Blood cultures and urine cultures pending -Check imaging of bladder and kidneys given presentation with ultrasound Subtherapeutic INR -Patient on Coumadin for atrial fibs/flutter -Patient has been subtherapeutic and we will therefore check CTA of the chest -Hold Coumadin for now until CT of the chest is obtained Hyperglycemia -Suspect reactive due to acute event -Patient was not markedly hyperglycemic during her recent hospitalization -Monitor -SSI -Accu-Cheks every 6 -Goal blood sugar range between 140 and 180 while in the critical care setting Chronic macrocytic anemia -Counts are currently stable -If medically improves could consider B12 and folate assessment Chronic HFpEF/PAH -Likely related to pulmonary hypertension and diastolic dysfunction -Who group 3 -Hold diuresis for now -Monitor clinically -Recent echocardiogram done on 12/19/2022 shows an EF of 65% with moderate biatrial enlargement and trivial mitral valve insufficiency JUSTINA -Patient historically noncompliant -Sounds as if patient was not wearing her BiPAP at the nursing facility -Currently mechanically ventilated Paroxysmal atrial fibrillation/flutter -Rate historically has been controlled without rate controlling medication -Has been on Coumadin but subtherapeutic -Continue to monitor -Currently in a flutter with variable block Hypertension -Hold antihypertensives GERD -Hold home lansoprazole -Start Protonix 40 mg IV push daily Hyperlipidemia -Hold home simvastatin Morbid obesity -BMI is 40.9 -Complicates treatment, prognosis, outcomes -Recommend weight loss DVT prophylaxis -We will likely start heparin drip however waiting for CTA results CODE STATUS -Full code -Overall prognosis appears to be quite poor Charges/Coding Visit Charges Inpatient E&M: 44043 Init Hosp L3
[2022-12-23 05:26] LABS: Troponin-I HS 29 pg/mL (3.0-54.0)
[2022-12-23 06:28] LABS: Procalcitonin 0.07 ng/mL (0.00-0.09)
--- NOTE | 2022-12-23 06:44 | NURSING ---
icu 1 tara resp failure, severe sepsis, uti
--- NOTE | 2022-12-23 07:01 | PCM.RX.CS ---
Consult Pharmacy has been consulted to manage selected antiobiotic: Vancomycin Type of Consult: New start Labs: Sodium 138 mmol/L (136-145) 12/23/22 03:25 Potassium 4.6 mmol/L (3.5-5.1) 12/23/22 03:25 Chloride 92 mmol/L (98-107) L 12/23/22 03:25 Carbon Dioxide 41.0 mmol/L (21.0-32.0) H 12/23/22 03:25 Anion Gap 5 (5-15) 12/23/22 03:25 BUN 14 mg/dL (7-18) 12/23/22 03:25 Creatinine 0.93 mg/dL (0.55-1.02) 12/23/22 03:25 Est GFR (MDRD) Af Amer 75 mL/min (>60) 12/23/22 03:25 Est GFR (MDRD) Non-Af 62 mL/min (>60) 12/23/22 03:25 BUN/Creatinine Ratio 15.1 RATIO (10-20) 12/23/22 03:25 Glucose 196 mg/dL (74-106) H 12/23/22 03:25 Goal Trough: 15-20 mcg/mL Pharmacy Plan for Drug Dosing: Pharmacy Service will continue to monitor and adjust dosing as required. Medications Vancomycin HCl 1,500 mg/ (Sodium Chloride) 530 mls @ 250 mls/hr IV Q12H JANELL Vancomycin HCl 1,750 mg/ (Sodium Chloride) 535 mls @ 250 mls/hr IV X1 ONE Stop: 12/23/22 07:24 Last Admin: 12/23/22 06:18 Dose: 250 mls/hr Follow-Up Labs: Trough Vancomycin Labs to be done on [date and time ordered]: 12/24 @ 9685
[2022-12-23 07:57] LABS: Reflex Lactate? Y
--- NOTE | 2022-12-23 08:07 | TELEMED_ITS ---
[facility] Tele[facility] has confirmed receipt of a request for visit. This document confirms receipt of the order initiating the consult. To find the results of the consultation, please view the patient's reports for the scanned Telemed Consult.
[2022-12-23 08:20] LABS: Allen Test Positive; Base Excess 21 mmol/L (-2 to +2); Bicarbonate 43.5 mmol/L (22-26); Blood Gas Specimen Type ART; FI02 50; Mode AC; O2 Delivery Device Adult Vent; PEEP 5; PO2 49 mmHG (75-100); RR 18; SITE R Radial; SO2 87 % (95-99); Total Carbon Dioxide 45 mmol/L; Vt 350; pCO2 53.7 mmHg (35-45); pH 7.52 (7.35-7.45)
[2022-12-23] MEDS: LORazepam 2 MG/ML Syringe IV (08:29)
--- NOTE | 2022-12-23 08:35 | RAD_ITS ---
INDICATION: on mechanical ventilation EXAMINATION/TECHNIQUE: X-RAY - XR Chest 1 View COMPARISON: 12/23/2022 4:13 AM FINDINGS: LINES/DEVICES: Endotracheal tube tip projects 3.47 cm above the serge. Nasogastric tube extends below the left hemidiaphragm. LUNGS: There is a extensive right lower lobe infiltrate progressive since the prior study. There is small left lower lobe infiltrate. There is central vascular congestion MEDIASTINUM AND CARDIOVASCULAR STRUCTURES: Mild cardiomegaly. BONES AND SOFT TISSUES: Unremarkable. RAD/Chest 1 View IMPRESSION: Endotracheal tube and nasogastric tube appear properly positioned. Progressive the consolidation right lower lobe and stable left lower lobe infiltrate. Electronically Signed: Constantine Gilbert MD, PAOLO at 9:05 EDT ,
--- NOTE | 2022-12-23 08:38 | EX.PCM.CONCC ---
Assessment & Plan Assessment/Plan (1) Anoxic brain injury: (2) Acute on chronic respiratory failure with hypoxia and hypercapnia: (3) Obstructive sleep apnea: (4) Pneumonia: (5) Supratherapeutic INR: (6) UTI (urinary tract infection): (7) Lactic acidosis: (8) Transaminitis: (9) Atrial fibrillation: (10) Cardiac arrest: PLAN: Etiology uncertain, initial troponin was negative. Possibilities include aspiration, hypoxia related arrhythmia, seizure, sepsis, stroke. HPI Consult Data Date of Consult: 12/23/22 HPI Narrative Reason for Consultation: Status postcardiopulmonary arrest. UTI, probable sepsis. HPI Narrative: ELIGIO ALANIS, is a 77 F with atrial fibrillation, chronic aspiration, and severe central sleep apnea on BiPAP 02/07 with 4 L intolerant of CPAP. No complaints [facility]. Her last known well at midnight today, found to be unresponsive at the [facility]. Her cousin/POA was chatting with her yesterday and stated she was able to talk and was not in any distress. She was found unresponsive in the penitentiary, when squad arrived patient was in full cardiac arrest with the penitentiary staff was doing CPR. She was given epinephrine and defibrillated to ROSC. In the ER her blood gas was 7.26 PCO2 98 PO2 78. She was intubated in the ER ventilated for acute on chronic hypoxic and hypercarbic respiratory failure. Initial ventilator settings were tidal volume 450 rate 18 FiO2 50% PEEP of 5. Second blood gas was 7.51 PCO2 54 PO2 45 saturation 87%, changed to 325x14 rate x8 PEEP x80% / 100% FiO2. Her brain CT scan showed increased intracranial pressure, no acute bleeds or infarct. CT chest was negative for pulmonary embolism but showed bilateral patchy infiltrates consistent with pulmonary edema, pneumonia and/or aspiration, and bibasilar atelectasis. Chest x-ray also saw a left lower lobe retrocardiac atelectasis, good endotracheal tube placement 2 cm above the serge, small bilateral effusions and cardiomegaly. She has bilateral patchy infiltrates likely related to CHF versus aspiration with bibasilar atelectasis and trace effusions. She was given cefepime 2 g every 8 hour and Vanco. She is on heparin chlorhexidine insulin and Zofran. She was noted to have acute seizure activity in the ICU, was given IV Ativan and loaded with Keppra. EEG was obtained. Results pending. Other labs were remarkable for likely UTI/sepsis with nitrite and leukocyte esterase positive white count 5200 cells, and positive for protein glucose ketones blood and bacteria. Sepsis protocol was activated in ER. Procalcitonin was 0.07. BNP slightly elevated at 216, initial troponin negative lactate 6.4 ammonia 28. Chemistries have a chloride of 92 bicarbonate 41 BUN 14 creatinine 0.93 glucose 196, pro time 16.5, abnormal liver function test with AST 500 ALT 307 with normal alkaline phosphatase and bilirubin and coagulopathy with PT 16.5 on chronic anticoagulation for atrial fibrillation. Albumin is 2.5. White count was normal but there was marked left shift with 3 metamyelocytes 1 myelocyte and 1 pro myelocytes Review of older labs show a recent barium swallow that showed moderate to severe oropharyngeal phase dysphagia high risk of aspiration, pur?ed diet with moist nectar thick fluids was recommended, recline first kyphosis small bites alternate solids and liquids and one-to-one supervision. Polysomnography was consistent with severe obstructive sleep apnea with AHI on BiPAP of 16/10 with 4 L/min of 31 and adequate oxygenation. It could not be titrated to effective levels because of the very short sleep time of 14%. It is not known whether she was regularly using her BiPAP in the penitentiary. Today, she is not sedated in the intensive care unit, having intermittent jerking seizure activity with involuntary eye-opening diffuse muscle contractions with flexion contractions bilaterally in all limbs lasting less than 2 seconds. Her rhythm is A-fib a flutter, blood pressure is normal. BMI is 40. [facility] Medical History (Updated 12/23/22 @ 09:[address] Radames Saldana MD) Anemia BiPAP (biphasic positive airway pressure) dependence Bleeding ulcer Cardiac arrest Essential hypertension Generalized weakness GERD (gastroesophageal reflux disease) Inability to walk Left anterior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 [employer] current use of anticoagulant Non-smoker On home oxygen therapy JUSTINA on CPAP Paroxysmal atrial fibrillation Poliomyelitis Pulmonary hypertension Pure hypercholesterolemia Right bundle branch block (RBBB) Home Medications cetirizine 10 mg capsule 10 mg PO DAILY allergies 11/10/16 [History Last Taken 11/14/16 07:30] cholecalciferol (vitamin D3) 50 mcg (2,000 unit) capsule 2,000 unit PO BID supplement 11/10/16 [History Last Taken Unknown] fluticasone propionate 50 mcg/actuation nasal spray,suspension 1 spray NASAL DAILY PRN Allergies 11/10/16 [History Last Taken Unknown] simvastatin 10 mg tablet 10 mg PO QHS cholesterol 10/03/18 [History Last Taken Unknown] lansoprazole 15 mg capsule,delayed release 30 mg PO QHS acid reflux 06/14/22 [History Last Taken Unknown] hydrochlorothiazide 25 mg tablet 25 mg PO DAILY BP 06/24/22 [History Last Taken Unknown] warfarin 2 mg tablet 2 mg PO QHS afib 06/25/22 [History Last Taken 12/22/22 18:38] bipap #1 ea 12/14/22 [Rx Last Taken Unknown] acetaminophen 500 mg tablet 1,000 mg PO Q8 pain 12/23/22 [History Last Taken Unknown] furosemide 40 mg tablet 40 mg PO DAILY diuretic 12/23/22 [History Last Taken Unknown] potassium chloride 20 mEq tablet,extended release(part/cryst) (Klor-Con M) 20 meq PO BIDCM supplement 12/23/22 [History Last Taken Unknown] Allergy/AdvReac Type Severity Reaction Status Date / Time DANIEL Inhibitors Allergy Hives Verified 12/23/22 03:35 ampicillin Allergy Hives Verified 12/23/22 03:35 atorvastatin [From Lipitor] Allergy Other Verified 12/23/22 03:35 chlorophyllin [From Panafil] Allergy Other Verified 12/23/22 03:35 oxycodone [From Percocet] Allergy Upset Verified 12/23/22 03:35 Stomach papain [From Panafil] Allergy Other Verified 12/23/22 03:35 propoxyphene Allergy Upset Verified 12/23/22 03:35 [From Darvocet-N] Stomach urea [From Panafil] Allergy Other Verified 12/23/22 03:35 spironolactone AdvReac Intermediate blood in Verified 12/23/22 03:35 urine Family History Mother CVA (cerebral vascular accident) Diabetes Cancer Bladder Grandmother Heart disease Surgical History History of bilateral cataract extraction History of tonsillectomy and adenoidectomy History of total knee replacement History of total right hip replacement Social History household members: none housing: penitentiary Smoking Status: Never smoker alcohol intake: never substance use type: does not use caffeine: Yes Type: coffee Number of servings: 3 ROS ROS Narrative Unable, seizing on mechanical ventilation Physical Exam Narrative Chronically ill-appearing older woman who is unresponsive and intermittently having less than 1 to 2-second episodes of myoclonus., Prior to loading Ativan and Keppra. HEENT extraocular's are open but not focused, not tracking. Anicteric, sclera noninjected. Pupils are 2 mm and reactive. Mouth is intubated mucous membranes moist, secretions are scant and hands suctioned through the tube. Neck was not manipulated. Chest has bilateral rhonchi, no wheezing or consolidation, diminished at bases bilaterally, no crackles, cough does not clear secretions but patient does have fair cough with suction. Heart distant irregular S1-S2 with no murmurs Abdomen is soft, nontender, obese, no organomegaly, hypoactive bowel sounds. : Normal female genitalia Garsia catheter draining slightly cloudy medium yellow urine. No blood. Skin is cool and dry. No obvious lesions, peripheral IVs are in place. Neuro: Seizure activity noted, otherwise she does not withdrawal purposefully. Equal seizure activity in all limbs. Remains unresponsive with GCS of 3. Medical Records Data Attestation: I reviewed the patient's medical records Medical records narrative: As per HPI Obese but with low albumin consistent with moderate protein deficiency, excess calories Lab / Micro Data Attestation: I reviewed the patient's lab results. Result Diagrams: 12/23/22 03:25 12/23/22 03:25 Labs: Laboratory Results - last 24 hr 12/23/22 03:25: WBC 9.0, RBC 3.93 L, Hgb 11.9 L, Hct 42.4, MCV 107.9 H D, MCH 30.3, MCHC 28.1 L, RDW Std Deviation 58.9 H, RDW Coeff of Bonny 15.0 H, Plt Count 217, MPV 10.4, Neut % (Auto) Not Reportable, Absolute Neuts (auto) 5.9, Absolute Lymphs (auto) 1.98, Total Counted 100, Neutrophils % (Manual) 66, Lymphocytes % (Manual) 22, Monocytes % (Manual) 5, Eosinophils % (Manual) 2, Metamyelocytes % 3 H, Myelocytes % 1 H, Promyelocytes % 1 H, Diff Path Review May foll, Platelet Estimate ADEQUATE, Plt Morphology Comment GIANT, Stomatocytes 1+ 12/23/22 03:25: PT 16.5 H, INR 1.4, APTT 33.7 12/23/22 03:25: Sodium 138, Potassium 4.6, Chloride 92 L, Carbon Dioxide 41.0 H, Anion Gap 5, BUN 14, Creatinine 0.93, Estim Creat Clear Calc 49.48, Est GFR (MDRD) Af Amer 75, Est GFR (MDRD) Non-Af 62, BUN/Creatinine Ratio 15.1, Glucose 196 H, Calcium 8.7, Total Bilirubin 0.80, AST 500 H, ALT 307 H, Alkaline Phosphatase 115, Total Protein 6.7, Albumin 2.5 L, Globulin 4.2, Albumin/Globulin Ratio 0.6 L 12/23/22 03:25: Lactic Acid 6.4 H* 12/23/22 03:25: B-Natriuretic Peptide 216.8 H 12/23/22 03:25: Troponin I High Sens 29 12/23/22 04:02: POC Glucose 172 H 12/23/22 04:31: Urine Color Yellow, Urine Clarity Cloudy, Urine pH 6.0, Ur Specific [place] 1.020, Urine Protein 500 H, Urine Glucose (UA) 100 H, Urine Ketones 5 H, Urine Occult Blood 250 H, Urine Nitrite Positive H, Urine Bilirubin Negative, Urine Urobilinogen 1 H, Ur Leukocyte Esterase 100 H, Urine RBC 50-100 SEEN, Urine WBC 50-100 SEEN, Ur Squamous Epith Cells 5-10 SEEN, Urine Bacteria 4+, Hyaline Casts 0-5 SEEN, Urine Mucus 0 SEEN 12/23/22 05:30: Procalcitonin 0.07 12/23/22 05:30: Ammonia 28.0 Micro: Blood urine sputum cultures ordered. Sputum culture obtained after first dose of cefepime and Vanco ABG Data ABG results: ABG 12/23/22 12/23/22 04:41 08:13 Specimen Type ART ART Sample Site R Radial R Radial pH 7.26 L 7.52 H Bicarbonate Actual 44.3 H 43.5 H Total CO2 47 45 Base Excess 17 H 21 H O2 Saturation 92 L 87 L O2 % 50 50 ABG pCO2 98.4 H* 53.7 H ABG pO2 78 49 L Ray Test Positive Positive Respiration Rate 16 18 O2 Delivery Device ET Tube Adult Vent Vent Mode AC AC Tidal Volume 450 350 POC PEEP 5 5 Crit Call To/Read Back Yes Attestation: I personally reviewed and interpreted this ABG as follows: Interpretation: See history and vent changes Radiology Impression Brain CT 12/23/22 03:48 IMPRESSION: Subtle findings suggest diffuse cerebral edema with increased intracranial pressure. Possible hypoxic ischemic injury. No bleed. CT angiogram and/or MRI may be helpful for further evaluation. N.B. : The above Results were Read Back by Jane Soto MD to Sergio De La Torre DO, and understanding confirmed on 12/23/2022 04:40:07 (ET). Electronically Signed: aJne Soto MD at 4:41 EDT Reading Location ID and State: [facility] / [place] Tel , Service support , ADDENDUM: 12/23/22 0448 IMPRESSION: Subtle findings suggest diffuse cerebral edema with increased intracranial pressure. Possible hypoxic ischemic injury. No bleed. CT angiogram and/or MRI may be helpful for further evaluation. N.B. : The above Results were Read Back by Jane Soto MD to Sergio De La Torre DO, and understanding confirmed on 12/23/2022 04:40:07 (ET). Electronically Signed: Jane Soto MD at 4:41 EDT Reading Location ID and State: [facility] / [place] Tel , Service support , Chest X-Ray 12/23/22 04:20 IMPRESSION: Satisfactory ET tube positioning. Mild airspace disease increased with no change in the right pleural effusion. Electronically Signed: Jane Soto MD at 4:56 EDT Reading Location ID and State: [facility] / [place] Tel , Service support , Chest CTA 12/23/22 05:12 IMPRESSION: 1. No definite evidence of pulmonary emboli. 2. Mild pulmonary edema. Bilateral pleural effusions and compressive atelectasis. Superimposed pneumonia not excluded. Electronically Signed: Jane Soto MD at 7:27 EDT ,
[2022-12-23] MEDS: Mannitol 50gm/250ml 50 GM in Premixed Bag 1 BAG IV (08:48)
[2022-12-23] MEDS: 0.9% Saline Lock 10 ML Syringe IV (09:22)
[2022-12-23] MEDS: Heparin Injection (Vial) 5,000 UNIT/ML VIAL 5000 UNIT SC ×3 (09:28→22:07)
[2022-12-23 09:34] LABS: Acetaminophen (Tylenol) Level 3.9 ug/mL (10.0-30.0)
[2022-12-23 09:44] LABS: Troponin-I HS 125 pg/mL (3.0-54.0)
[2022-12-23] MEDS: Atropine Sulfate 1 MG/10 ML Syringe IV (09:44)
[2022-12-23 09:51] LABS: Bedside Glucose 142 mg/dL (74-106)
[2022-12-23 09:55] LABS: Amphetamine Urine VISTA NEGATIVE (<1000 ng/mL); Barbiturate Urine VISTA NEGATIVE (< 200 ng/mL); Benzodiazepine Urine VISTA NEGATIVE (< 200 ng/mL); Cocaine Urine VISTA NEGATIVE (< 300 ng/mL); Ecstacy Urine VISTA NEGATIVE (< 500 ng/mL); Methadone Urine VISTA NEGATIVE (< 300 ng/mL); PCP Urine VISTA NEGATIVE (< 25 ng/mL); THC Urine VISTA NEGATIVE (< 50 ng/mL); Vista UDS pH Range 5
[2022-12-23 09:57] LABS: Lactic Acid 3.4 mmol/L (0.4-1.9)
[2022-12-23] MEDS: Chlorhexidine 15 ML PO ×2 (10:00→22:07)
--- NOTE | 2022-12-23 10:15 | NURSING ---
IO removed prior to MRI per Bo Park RN
--- NOTE | 2022-12-23 13:17 | CASEMGMT ---
Social Work Note AMBROCIO informed by ABEL Short patient's HCPOA is her cousin, Matrha. Patient on vent, AMBROCIO to follow up with HCPOA regarding D/C plan. AMBROCIO contacted Martha, patient's HCPOA, and introduced herself and role as [facility] City Planning Teacher. AMBROCIO inquired about patient's current living arrangements. Martha reports patient was at [facility] for one day but then returned to the hospital and requested a different SNF at discharge. Patient is currently at [facility]. Martha reports the plan is for patient to return to [place] when she is medically ready. AMBROCIO to send updates to [place] via Martha Collier in agreement. Plan: return to [place] when medically ready Reena LIGHT, ABHILASH
[2022-12-23 13:46] LABS: Bedside Glucose 134 mg/dL (74-106)
[2022-12-23 14:31] LABS: Allen Test Positive; Base Excess 18 mmol/L (-2 to +2); Bicarbonate 41.6 mmol/L (22-26); Blood Gas Specimen Type ART; FI02 70; Mode AC; O2 Delivery Device Adult Vent; PEEP 8; PO2 73 mmHG (75-100); RR 14; SITE R Radial; SO2 95 % (95-99); Total Carbon Dioxide 43 mmol/L; Vt 325; pCO2 53.9 mmHg (35-45)
[2022-12-23 15:26] LABS: Troponin-I HS 139 pg/mL (3.0-54.0)
--- NOTE | 2022-12-23 15:47 | PN_ITS ---
Subjective Subjective Patient seen and examined. She is intubated. Unable to do review of systems as she is intubated. RASS score was -4. Objective Data Objective Data Vital Signs: Vital Signs Temp Pulse Resp BP Pulse Ox O2 Del Method FiO2 97.3 F L 62 14 124/56 H 98 Mechanical Ventilator 70 12/23/22 14:00 12/23/22 15:00 12/23/22 15:00 12/23/22 15:00 12/23/22 15:00 12/23/22 15:00 12/23/22 15:00 Oxygen Delivery Method Mechanical Ventilator Weight: 254 lb 10.142 oz Body Mass Index (BMI) 39.9 Intake & Output: Intake and Output for Last 24 Hours 12/21/22 12/22/22 12/23/22 23:59 23:59 23:59 Intake Total 1195.00 / 1195.00 Balance 1195.00 / 1195.00 Lab / Micro Data Result Diagrams: 12/23/22 03:25 12/23/22 03:25 Labs: Laboratory Results - last 24 hr 12/23/22 03:25: WBC 9.0, RBC 3.93 L, Hgb 11.9 L, Hct 42.4, MCV 107.9 H D, MCH 30.3, MCHC 28.1 L, RDW Std Deviation 58.9 H, RDW Coeff of Bonny 15.0 H, Plt Count 217, MPV 10.4, Neut % (Auto) Not Reportable, Absolute Neuts (auto) 5.9, Absolute Lymphs (auto) 1.98, Total Counted 100, Neutrophils % (Manual) 66, Lymphocytes % (Manual) 22, Monocytes % (Manual) 5, Eosinophils % (Manual) 2, Metamyelocytes % 3 H, Myelocytes % 1 H, Promyelocytes % 1 H, Diff Path Review May foll, Platelet Estimate ADEQUATE, Plt Morphology Comment GIANT, Stomatocytes 1+ 12/23/22 03:25: PT 16.5 H, INR 1.4, APTT 33.7 12/23/22 03:25: Sodium 138, Potassium 4.6, Chloride 92 L, Carbon Dioxide 41.0 H, Anion Gap 5, BUN 14, Creatinine 0.93, Estim Creat Clear Calc 49.48, Est GFR (MDRD) Af Amer 75, Est GFR (MDRD) Non-Af 62, BUN/Creatinine Ratio 15.1, Glucose 196 H, Calcium 8.7, Total Bilirubin 0.80, AST 500 H, ALT 307 H, Alkaline Phosph atase 115, Total Protein 6.7, Albumin 2.5 L, Globulin 4.2, Albumin/Globulin Ratio 0.6 L 12/23/22 03:25: Lactic Acid 6.4 H* 12/23/22 03:25: B-Natriuretic Peptide 216.8 H 12/23/22 03:25: Troponin I High Sens 29 12/23/22 04:02: POC Glucose 172 H 12/23/22 04:31: Urine Color Yellow, Urine Clarity Cloudy, Urine pH 6.0, Ur Specific [place] 1.020, Urine Protein 500 H, Urine Glucose (UA) 100 H, Urine Ketones 5 H, Urine Occult Blood 250 H, Urine Nitrite Positive H, Urine Bilirubin Negative, Urine Urobilinogen 1 H, Ur Leukocyte Esterase 100 H, Urine RBC 50-100 SEEN, Urine WBC 50-100 SEEN, Ur Squamous Epith Cells 5-10 SEEN, Urine Bacteria 4+, Hyaline Casts 0-5 SEEN, Urine Mucus 0 SEEN 12/23/22 04:31: Urine Opiates Screen NEGATIVE, Urine Methadone Screen NEGATIVE, Ur Barbiturates Screen NEGATIVE, Ur Phencyclidine Scrn NEGATIVE, Ur Amphetamines Screen NEGATIVE, MDMA (Ecstasy) Screen NEGATIVE, U Benzodiazepines Scrn NEGATIVE, Urine Cocaine Screen NEGATIVE, U Cannabinoids Screen NEGATIVE, Ur Drug Screen Comment 12/23/22 05:30: Procalcitonin 0.07 12/23/22 05:30: Ammonia 28.0 12/23/22 08:50: Acetaminophen 3.9 L 12/23/22 08:50: Troponin I High Sens 125 H* 12/23/22 08:50: Lactic Acid 3.4 H* 12/23/22 09:27: POC Glucose 142 H 12/23/22 13:25: POC Glucose 134 H 12/23/22 14:40: Troponin I High Sens 139 H* Micro: Microbiology 12/23/22 12:31 Sputum, Expectorated/Coughed Gram Stain - Final ABG Data ABG results: ABG 12/23/22 12/23/22 12/23/22 04:41 08:13 14:23 Specimen Type ART ART ART Sample Site R Radial R Radial R Radial pH 7.26 L 7.52 H 7.50 H Bicarbonate Actual 44.3 H 43.5 H 41.6 H Total CO2 47 45 43 Base Excess 17 H 21 H 18 H O2 Saturation 92 L 87 L 95 O2 % 50 50 70 ABG pCO2 98.4 H* 53.7 H 53.9 H ABG pO2 78 49 L 73 L Ray Test Positive Positive Positive Respiration Rate 16 18 14 O2 Delivery Device ET Tube Adult Vent Adult Vent Vent Mode AC AC AC Tidal Volume 450 350 325 POC PEEP 5 5 8 Crit Call To/Read Back Yes Radiography Diagnostic Testing: Radiology Impression Brain CT 12/23/22 03:48 IMPRESSION: Subtle findings suggest diffuse cerebral edema with increased intracranial pressure. Possible hypoxic ischemic injury. No bleed. CT angiogram and/or MRI may be helpful for further evaluation. N.B. : The above Results were Read Back by Jane Soto MD to Sergio De La Torre DO, and understanding confirmed on 12/23/2022 04:40:07 (ET). Electronically Signed: Jane Soto MD at 4:41 EDT , ADDENDUM: 12/23/22 0448 IMPRESSION: Subtle findings suggest diffuse cerebral edema with increased intracranial pressure. Possible hypoxic ischemic injury. No bleed. CT angiogram and/or MRI may be helpful for further evaluation. N.B. : The above Results were Read Back by Jane Soto MD to Sergio De La Torre DO, and understanding confirmed on 12/23/2022 04:40:07 (ET). Electronically Signed: Jane Soto MD at 4:41 EDT , Chest X-Ray 12/23/22 04:20 IMPRESSION: Satisfactory ET tube positioning. Mild airspace disease increased with no change in the right pleural effusion. Electronically Signed: Jane Soto MD at 4:56 EDT , Chest CTA 12/23/22 05:12 IMPRESSION: 1. No definite evidence of pulmonary emboli. 2. Mild pulmonary edema. Bilateral pleural effusions and compressive atelectasis. Superimposed pneumonia not excluded. Electronically Signed: Jane Soto MD at 7:27 EDT , Brain MRI 12/23/22 05:22 IMPRESSION: No evidence of intracranial hemorrhage. No evidence of acute infarct. Mild cortical and central atrophy. Moderate chronic microvascular ischemic change. Moderate bilateral mastoid air cell disease. Probable mucous retention cyst less likely polyp inferior left maxillary sinus. Electronically Signed: Constantine Gilbert MD, JD at 12:34 EDT , Renal Ultrasound 12/23/22 05:22 IMPRESSION: Small simple cysts of the right left kidney detailed above. No evidence of calculus or hydronephrosis. Electronically Signed: Constantine Gilbert MD, JD at 12:40 EDT , Chest X-Ray 12/23/22 08:35 IMPRESSION: Endotracheal tube and nasogastric tube appear properly positioned. Progressive the consolidation right lower lobe and stable left lower lobe infiltrate. Electronically Signed: Constantine Gilbert MD, JD at 9:05 EDT , Physical Exam Const Constitutional Narrative: Patient intubated and sedated. RASS score -4. HEENT normocephalic, head/scalp atraumatic and moist oral mucous membranes Eyes PERRL and EOMs intact bilaterally Neck supple Resp Resp Narrative: diminished breath sounds bibasally, no wheezes o crackles. intubated and ventilated. Cardio regular rate, regular rhythm, S1 normal heart sound, S2 normal heart sound and no murmurs GI normal to inspection, nondistended, normoactive bowel sounds, soft to palpation and non-tender Extremity normal capillary refill, no clubbing, cyanosis or edema and no calf tenderness Skin General Skin Exam: no breakdown Neuro Neuro Narrative: intubated and sedated. Assessment & Plan Assessment/Plan (1) Metabolic acidosis with respiratory acidosis: (2) Cardiac arrest: (3) Anoxic brain injury: PLAN: Plan #Cardiopulmonary arrest with anoxic brain injury * patient was found unresponsive in her SNF and brought to the ED. * Required CPR by the alf staff and required epinephrine and defibrillation to achieve ROSC. * Currently intubated and sedated. * 2D echo done on December 19, 2022 showed EF of 65% with moderate bilateral atrial enlargement and trivial mitral valve insufficiency. * Etiology thought to be possibly due to sepsis due to UTI. * On broad-spectrum antibiotics with vancomycin and cefepime. * Chest x-ray showed bilateral patchy infiltrates likely related to CHF versus aspiration pneumonia. * Critical care on board. Titrate oxygen to maintain saturation above 90%. * Blood cultures and urine cultures pending. * #Acute hypoxic and hypercapnic respiratory failure * Likely due to cardiopulmonary arrest with acute on chronic heart failure also contributing. * Management as above. * Critical care on board. * CTA chest was negative for PE but shjowed bilateral mild pulmonary edema and bilateral pleural effusions and compressive atelectasis,with superimposed pneumonia not excluded * * #elevated troponins: * initial troponin was 29, with troponins trending upwards to 125, and peaking at 139. * recent 2D echo as above * likely due to her severe hypoxia. Currently intubated and prognosis is poor. * to consider cardiology evaluation if her condition improves #Respiratory acidosis: Due to hypercapnia. Should improve with ventilation #Acute metabolic acidosis. Likely due to lactic acid elevation. Should improve as lactic acidosis resolves. #Acute metabolic encephalopathy * : Likely due to acute cardiopulmonary arrest with anoxic brain injury: Management as above. MRI of the brain ordered. CT of the brain suggestive of anoxic brain injury. * She was noted with seizure in the ED as well. EEG ordered. Urine tox also ordered. * #UTI: Started on Vanco and cefepime. Urine cultures as well as blood cultures pending. #A-fib: Was on Coumadin. INR was subtherapeutic so CT of the chest was ordered which showed no evidence of PE. #GERD: On PPI Hypertension: BP meds on hold due to patient's critical presentation. #Hyperlipidemia: Statins on hold #Morbid obesity: BMI is 39.9. Complicates acute care, expected recovery and prognosis. DVT prophylaxisL SCDs Code status: full code Prognosis: poor Charges/Coding Visit Charges Inpatient E&M: 74791 Subs Hosp L3
[2022-12-23 18:21] LABS: Bedside Glucose 136 mg/dL (74-106)
[2022-12-23 23:15] LABS: Allen Test POS; Blood Gas Specimen Type ART; Mode AC/VC; SITE R RADIAL
[2022-12-23 23:16] LABS: FI02 70; O2 Delivery Device Vent; PEEP 8; RR 10; Time Given 2202; Vt 325; pH 7.39 (7.35-7.45)
[2022-12-23 23:17] LABS: Base Excess 25 mmol/L (-2 to +2); PO2 99 mmHG (75-100); SO2 97 % (95-99); Total Carbon Dioxide > 50 mmol/L
[2022-12-24] VITALS (31 sets, daily range): BP systolic 108–146; BP diastolic 47–66; PULSE 57–85; RESP 10–15; TEMP 36.1–36.9; O2SAT 94–100; BMI 39.1
[2022-12-24 00:16] LABS: Bedside Glucose 116 mg/dL (74-106)
[2022-12-24 04:25] LABS: Basophil# 0.02 X10^3/uL; Basophil% 0.2 % (0-1); Hematocrit 38.4 % (37-47); Hemoglobin 12.1 g/dL (12.0-15.0); Lymphocyte % 3.4 % (19-41); Mean Corp Hgb Conc 31.5 g/dL (32-36); Mean Corpuscular Hgb 31.2 pg (27.0-32.0); Monocyte# 0.43 X10^3/uL; Monocyte% 3.6 % (0-10); NRBC Flagged by Analyzer 0 % (0-5); Neutrophil # 11.04 X10^3/uL (2.7-7.7); Neutrophil % 92.5 % (47-70); POSITIVE DIFFERENTIAL YES; Platelet Count 224 K/mm3 (150-450); RBC Distribution Width CV 15.5 % (11.6-14.6); RBC Distribution Width SD 55.7 fl (35.1-43.9); Red Blood Count 3.88 M/mm3 (4.2-5.4); White Blood Count 11.9 K/mm3 (4.4-11.0)
[2022-12-24 04:29] LABS: Differential Indicated SCAN CRITERIA MET
[2022-12-24 04:39] LABS: International Normalized Ratio 1.5; Prothrombin Time (Protime)PT. 17.4 SECONDS (11.7-14.9)
[2022-12-24 05:00] LABS: ALB/GLOB Ratio 0.6 RATIO (0.9-2.4); AST(SGOT) 318 U/L (15-37); Alanine Aminotransfer ALT/SGPT 253 U/L (13-56); Albumin, Serum 2.4 g/dL (3.2-5.0); Alkaline Phosphatase 89 U/L (45-117); Anion Gap 2 (5-15); BUN 26 mg/dL (7-18); BUN/Creat Ratio 34.5 RATIO (10-20); Calcium,Total 8.5 mg/dL (8.5-10.1); Chloride 96 mmol/L (98-107); Creatinine, Serum 0.75 mg/dL (0.55-1.02); EST Glomerular Filtration Rate 79 mL/min (>60); Est Glom Filt Rate - Afr Amer 95 mL/min (>60); Estimated Creatinine Clearance 44.36 ml/min; Globulin 3.9 g/dL (2.2-4.2); Glucose 128 mg/dL (74-106); Magnesium 2.1 mg/dL (1.6-2.6); Phosphorus 4.2 mg/dL (2.5-4.9); Potassium 4.5 mmol/L (3.5-5.1); Protein, Total 6.3 g/dL (6.4-8.2); Sodium Level 139 mmol/L (136-145); Thyroid Stim Hormone (TSH) 0.75 uIU/mL (0.358-3.74)
[2022-12-24 05:03] LABS: Anisocytosis 1+
[2022-12-24] MEDS: Heparin Injection (Vial) 5,000 UNIT/ML VIAL 5000 UNIT SC ×3 (05:44→21:02)
--- NOTE | 2022-12-24 06:18 | RAD_ITS ---
INDICATION: Acute respiratory failure with hypoxemia EXAMINATION/TECHNIQUE: X-RAY - XR Chest 1 View COMPARISON: 12/23/22. FINDINGS: LINES/DEVICES: Multiple overlapping lines degrades evaluation. Endotracheal tube appears 6 mm above the serge. Enteric tube subdiaphragmatic in the stomach. Multiple overlying telemetry leads.. LUNGS: Persistent opacification of the right lower lung with mild improved aeration from prior exam. Improved aeration in the left lung base. No pneumothorax. MEDIASTINUM AND CARDIOVASCULAR STRUCTURES: Unchanged cardiomegaly. Mild aortic atherosclerosis. BONES AND SOFT TISSUES: Unremarkable. RAD/Chest 1 View (Portable) IMPRESSION: Mild improved aeration within lungs with persistent opacification of the right lower lung. Endotracheal tube tip projects 6 mm above the serge. Consider 1 cm retraction. Electronically Signed: Demetris Negro MD at 6:52 EDT ,
[2022-12-24 06:36] LABS: Bedside Glucose 128 mg/dL (74-106)
[2022-12-24] MEDS: Chlorhexidine 15 ML PO ×2 (10:01→21:01)
[2022-12-24] MEDS: CHLORHEXIDINE GLUC 2% CLOTH 1 EACH TOWELETTE TOPICAL (10:02)
[2022-12-24] MEDS: Vital High Protein 1,000 ML 20 ML GT (11:24)
--- NOTE | 2022-12-24 12:05 | PN.CC_ITS ---
Assessment & Plan Assessment/Plan (1) Toxic metabolic encephalopathy: PLAN: Patient remains deeply comatose, Glascow coma score is 5, with weakening of her cough since yesterday. This is likely due to anoxic brain damage during her arrest. Yesterday she had some signs of cardiac rhythm instability with severe bradycardia requiring 1 d ose of atropine, likely centrally mediated after brain damage. Had postanoxic seizures, controlled with Keppra. Extremely guarded prognosis, very unlikely to have returned to independent existence. Family meeting today to discuss with the patient's wishes might be with the following scenario:. At best, she would likely require a prolonged time on mechanical ventilation and required tracheostomy and PEG tube, to return to a very impaired and fully dependent existence in a jail. (2) UTI (urinary tract infection): PLAN: Patient is on vancomycin and meropenem -Await sensitivities, would likely be able to stop vancomycin tomorrow and de- escalate meropenem. (3) Acute on chronic respiratory failure with hypoxia and hypercapnia: PLAN: She remains fully ventilator dependent, comatose, with an adequate cough. He failed a weaning trial overnight. - Maintain on ventilator until family decision regarding her prognosis and goals of care. - ET tube should be withdrawn and maintained 24 cm at the teeth. (4) Cardiac arrest: PLAN: Possibly due to aspiration or primary dysrhythmia. The patient did evidence severe bradycardia yesterday in the ICU. No trouble since then after 1 dose of atropine. (5) Pneumonia: PLAN: Remains on vancomycin and meropenem for right lower lobe pneumonia. This may be an aspiration, although secretions have been thin. (6) Obstructive sleep apnea: PLAN: Chronic (7) Renal insufficiency: PLAN: BUN and creatinine have normalized. (8) Atrial fibrillation: PLAN: Rate controlled (9) Transaminitis: PLAN: This was likely due to multiorgan system failure, in the setting of cardiac arrest, and is now improving. Pro time is 17.4, - Treat coagulopathy with vitamin K - Holding heparin for atrial fibrillation, due to possibility of hemorrhagic WIRE BRUSHER conversion. PLAN: Plan Critical care time spent with patient at bedside, review of documentation, lab results, radiology and other test results, discussion with colleagues and ancillary staff, clinical management of patient, and updating family if applicable, was 50 minutes. This time does not include any procedures or family meetings, if performed. [place] [address]. Subjective Subjective Not sedated since admission. She remains completely unresponsive. Neurologic exam is consistent with brainstem only function and possibly some spinal reflexes. No more seizure activity on Keppra On mechanical ventilation, some spontaneous respiration, but during a brief SBT overnight, patient had apneic episodes and was placed back on full vent support in a short time. No oculocephalic, weak cough with suctioning. Very faint nonpurposeful flexor motion with noxious stimuli. Pinpoint pupils. Family meeting later today. Objective Data Objective Data Vital Signs: Vital Signs Temp Pulse Resp BP Pulse Ox O2 Del Method FiO2 97.3 F L 60 10 L 108/59 L 100 Mechanical Ventilator 70 12/24/22 09:00 12/24/22 11:00 12/24/22 11:00 12/24/22 09:00 12/24/22 11:00 12/24/22 09:00 12/24/22 11:00 Oxygen Delivery Method Mechanical Ventilator assist control rate 10x3 25 cc x 75% x 8 P. Endotracheal tube 23 cm at the lip, 7.5 ID. Secretions are minimal and clear and thin. Weak cough with deep suctioning. Unsedated. Weight: 249 lb 1.957 oz Body Mass Index (BMI) 39.1 Intake & Output: Intake and Output for Last 24 Hours 12/22/22 12/23/22 12/24/22 23:59 23:59 23:59 Intake Total 1930.00 / 1930.00 845 / 845 Output Total 800 / 1950 1375 / 1375 Balance 1130.00 / -20.00 -530 / -530 total balance since admission -1375. Tube feeds to start today. Goal 60 cc. Lab / Micro Data Attestation: I reviewed the patient's lab results. Result Diagrams: 12/24/22 04:10 12/24/22 04:10 Labs: Laboratory Results - last 24 hr 12/23/22 13:25: POC Glucose 134 H 12/23/22 14:40: Troponin I High Sens 139 H* 12/23/22 17:57: POC Glucose 136 H 12/23/22 23:56: POC Glucose 116 H 12/24/22 04:10: WBC 11.9 H, RBC 3.88 L, Hgb 12.1, Hct 38.4, MCV 99.0 D, MCH 31.2, MCHC 31.5 L D, RDW Std Deviation 55.7 H, RDW Coeff of Bonny 15.5 H, Plt Count 224, MPV 10.0, Immature Gran % (Auto) 0.300, Neut % (Auto) 92.5 H, Lymph % (Auto) 3.4 L, [place] % (Auto) 3.6, Eos % (Auto) 0.0, Baso % (Auto) 0.2, Absolute Neuts (auto) 11.0 H, Absolute Lymphs (auto) 0.40 L, Nucleated RBC % 0, Anisocytosis 1+ 12/24/22 04:10: PT 17.4 H, INR 1.5 12/24/22 04:10: Sodium 139, Potassium 4.5, Chloride 96 L, Carbon Dioxide 41.0 H, Anion Gap 2 L, BUN 26 H, Creatinine 0.75, Estim Creat Clear Calc 44.36, Est GFR (MDRD) Af Amer 95, Est GFR (MDRD) Non-Af 79, BUN/Creatinine Ratio 34.5 H, Glucose 128 H, Calcium 8.5, Phosphorus 4.2, Magnesium 2.1, Total Bilirubin 0.50, AST 318 H, ALT 253 H, Alkaline Phosphatase 89, Total Protein 6.3 L, Albumin 2.4 L, Globulin 3.9, Albumin/Globulin Ratio 0.6 L, TSH 0.75 12/24/22 05:41: POC Glucose 128 H Micro: Microbiology 12/23/22 12:31 Sputum, Expectorated/Coughed Gram Stain - Final 12/23/22 12:31 Sputum, Expectorated/Coughed Respiratory Culture - Prelimin nahomy Appears to be normal respiratory jennifer. Further studies to follow. 12/23/22 04:31 Urine Catheter - Catheter Urine Culture - Preliminary Gram negative boni Patient is on Maxipime and vancomycin. ABG Data ABG results: ABG 12/23/22 12/23/22 14:23 22:02 Specimen Type ART ART Sample Site R Radial R RADIAL pH 7.50 H 7.39 Bicarbonate Actual 41.6 H 50.0 H Total CO2 43 > 50 Base Excess 18 H 25 H O2 Saturation 95 97 O2 % 70 70 ABG pCO2 53.9 H 81.0 H* ABG pO2 73 L 99 Ray Test Positive POS Respiration Rate 14 10 O2 Delivery Device Adult Vent Vent Vent Mode AC AC/VC Tidal Volume 325 325 POC PEEP 8 8 Crit Call To/Read Back Yes Blood Gas Notified Whom [facility] Blood Gas Notified Time 2201 no new ABG today. Radiography Diagnostic Testing: Radiology Impression Brain MRI 12/23/22 05:22 IMPRESSION: No evidence of intracranial hemorrhage. No evidence of acute infarct. Mild cortical and central atrophy. Moderate chronic microvascular ischemic change. Moderate bilateral mastoid air cell disease. Probable mucous retention cyst less likely polyp inferior left maxillary sinus. Electronically Signed: Constantine Gilbert MD, PAOLO at 12:34 EDT , Renal Ultrasound 12/23/22 05:22 IMPRESSION: Small simple cysts of the right left kidney detailed above. No evidence of calculus or hydronephrosis. Electronically Signed: Constantine Gilbert MD, JD at 12:40 EDT , Chest X-Ray 12/24/22 06:18, personally reviewed. IMPRESSION: Mild improved aeration within lungs with persistent opacification of the right lower lung. Endotracheal tube tip projects 6 mm above the serge. Consider 1 cm retraction. Electronically Signed: Demetris Negro MD at 6:52 EDT , Physical Exam Narrative Obese, elderly woman who is unresponsive on mechanical ventilator. HEENT: Atraumatic, normocephalic. Extraocular's are absent. Oculocephalics are absent. Pupils are pinpoint less than 1 mm bilaterally, no spontaneous eye movement or eye opening. Endotracheal tube is 22 cm at the upper teeth, minimal thin secretions when suctioned. Weak and inadequate cough with suctioning. Chest has some rhonchi bilaterally that clear with suctioning, otherwise no wheezes rales or rhonchi. Heart normal S1-S2 with no murmurs, distant heart sounds Abdomen is soft nontender, diminished bowel sounds. Extremities have chronic venous stasis changes in the distal lower extremities with brownish skin discoloration. There are 2 stasis ulcers on the posterior calves that are draining clear, chronic. There are crusted abrasion lesions on the first and second toes of both feet, no erythema. Musculoskeletal: Unable to examine Neuro: See eye exam above. Patient is completely unresponsive. He has nonspecific barely perceptible nonpurposeful flexor motion with noxious stimuli to the hands and feet. Babinski's are upgoing. Skin is warm and dry Charges/Coding Procedures Hospitalists Procedures: 32081 Critial Care 1st Hr
--- NOTE | 2022-12-24 13:25 | PN_ITS ---
Subjective Subjective Patient seen and examined. She remains intubated. Per her nurse she was noted to be having a gag reflex today and also withdrew from pain. Unable to do review of systems because she is intubated. Objective Data Objective Data Vital Signs: Vital Signs Temp Pulse Resp BP Pulse Ox O2 Del Method FiO2 97.3 F L 60 10 L 108/59 L 100 Mechanical Ventilator 70 12/24/22 09:00 12/24/22 11:00 12/24/22 11:00 12/24/22 09:00 12/24/22 11:00 12/24/22 09:00 12/24/22 11:00 Oxygen Delivery Method Mechanical Ventilator Weight: 249 lb 1.957 oz Body Mass Index (BMI) 39.1 Intake & Output: Intake and Output for Last 24 Hours 12/22/22 12/23/22 12/24/22 23:59 23:59 23:59 Intake Total 1930.00 / 1930.00 845 / 845 Output Total 800 / 1950 1375 / 1375 Balance 1130.00 / -20.00 -530 / -530 Lab / Micro Data Result Diagrams: 12/24/22 04:10 12/24/22 04:10 Labs: Laboratory Results - last 24 hr 12/23/22 13:25: POC Glucose 134 H 12/23/22 14:40: Troponin I High Sens 139 H* 12/23/22 17:57: POC Glucose 136 H 12/23/22 23:56: POC Glucose 116 H 12/24/22 04:10: WBC 11.9 H, RBC 3.88 L, Hgb 12.1, Hct 38.4, MCV 99.0 D, MCH 31.2, MCHC 31.5 L D, RDW Std Deviation 55.7 H, RDW Coeff of Bonny 15.5 H, Plt Count 224, MPV 10.0, Immature Gran % (Auto) 0.300, Neut % (Auto) 92.5 H, Lymph % (Auto) 3.4 L, [place] % (Auto) 3.6, Eos % (Auto) 0.0, Baso % (Auto) 0.2, Absolute Neuts (auto) 11.0 H, Absolute Lymphs (auto) 0.40 L, Nucleated RBC % 0, Anisocytosis 1+ 12/24/22 04:10: PT 17.4 H, INR 1.5 12/24/22 04:10: Sodium 139, Potassium 4.5, Chloride 96 L, Carbon Dioxide 41.0 H, Anion Gap 2 L, BUN 26 H, Creatinine 0.75, Estim Creat Clear Calc 44.36, Est GFR (MDRD) Af Amer 95, Est GFR (MDRD) Non-Af 79, BUN/Creatinine Ratio 34.5 H, Glucose 128 H, Calcium 8.5, Phosphorus 4.2, Magnesium 2.1, Total Bilirubin 0.50, AST 318 H, ALT 253 H, Alkaline Phosphatase 89, Total Protein 6.3 L, Albumin 2.4 L, Globulin 3.9, Albumin/Globulin Ratio 0.6 L, TSH 0.75 12/24/22 05:41: POC Glucose 128 H Micro: Microbiology 12/23/22 12:31 Sputum, Expectorated/Coughed Gram Stain - Final 12/23/22 12:31 Sputum, Expectorated/Coughed Respiratory Culture - Preliminary Appears to be normal respiratory jennifer. Further studies to follow. 12/23/22 04:31 Urine Catheter - Catheter Urine Culture - Preliminary Gram negative boni ABG Data ABG results: ABG 12/23/22 12/23/22 14:23 22:02 Specimen Type ART ART Sample Site R Radial R RADIAL pH 7.50 H 7.39 Bicarbonate Actual 41.6 H 50.0 H Total CO2 43 > 50 Base Excess 18 H 25 H O2 Saturation 95 97 O2 % 70 70 ABG pCO2 53.9 H 81.0 H* ABG pO2 73 L 99 Ray Test Positive POS Respiration Rate 14 10 O2 Delivery Device Adult Vent Vent Vent Mode AC AC/VC Tidal Volume 325 325 POC PEEP 8 8 Crit Call To/Read Back Yes Blood Gas Notified Whom [facility] Blood Gas Notified Time 2201 Radiography Diagnostic Testing: Radiology Impression Chest X-Ray 12/24/22 06:18 IMPRESSION: Mild improved aeration within lungs with persistent opacification of the right lower lung. Endotracheal tube tip projects 6 mm above the serge. Consider 1 cm retraction. Electronically Signed: Demetris Negro MD at 6:52 EDT , Physical Exam Const Constitutional Narrative: Patient intubated and sedated. RASS score -4. HEENT normocephalic, head/scalp atraumatic and moist oral mucous membranes Eyes PERRL, EOMs intact bilaterally and conjunctivae normal Neck no lymphadenopathy, supple and no carotid bruits Lymph Lymphatic: no lymphadenopathy noted Resp No normal respiratory effort, no retractions, no use of accessory muscles and No clear to auscultation bilaterally Resp Narrative: diminished breath sounds bibasally, no wheezes o crackles. intubated and ventilated. Auscultation: rhonchi; Negative for rales or wheezes Cardio regular rate, regular rhythm, S1 normal heart sound, S2 normal heart sound and no murmurs; Negative for no rub, no gallops or no clicks Cardio Narrative: Rhythm is irregularly irregular but rate is controlled GI normal to inspection, nondistended, normoactive bowel sounds, soft to palpation and non-tender Extremity normal capillary refill, no clubbing, cyanosis or edema and no calf tenderness Skin no wounds, skin turgor normal, no jaundice, no petechiae and no mottling General Skin Exam: no breakdown Neuro Neuro Narrative: intubated, RASs score is -4 Speech: Negative for speech normal Assessment & Plan Assessment/Plan (1) Metabolic acidosis with respiratory acidosis: (2) Cardiac arrest: (3) Anoxic brain injury: PLAN: Plan #Cardiopulmonary arrest with anoxic brain injury * remains intubated, off sedatives. RASS score is -4 * Required CPR by the senior living staff and required epinephrine and defibrillation to achieve ROSC. * 2D echo done on December 19, 2022 showed EF of 65% with moderate bilateral atrial enlargement and trivial mitral valve insufficiency. * Etiology thought to be possibly due to sepsis due to UTI. * On broad-spectrum antibiotics with vancomycin and cefepime. * Chest x-ray showed bilateral patchy infiltrates likely related to CHF versus aspiration pneumonia. * Critical care on board. Titrate oxygen to maintain saturation above 90%. * Blood cultures and urine cultures pending. * #Acute hypoxic and hypercapnic respiratory failure * Likely due to cardiopulmonary arrest with acute on chronic heart failure also contributing. * Management as above. * Critical care on board. * CTA chest was negative for PE but showed bilateral mild pulmonary edema and bilateral pleural effusions and compressive atelectasis,with superimposed pneumonia not excluded * * #elevated troponins: * initial troponin was 29, with troponins trending upwards to 125, and peaking at 139. * recent 2D echo as above * likely due to her severe hypoxia. Currently intubated and prognosis is poor. * to consider cardiology evaluation if her condition improves #Respiratory acidosis: Due to hypercapnia. Should improve with ventilation #Acute metabolic acidosis. Likely due to lactic acid elevation. Should improve as lactic acidosis resolves. #Acute metabolic encephalopathy * : Likely due to acute cardiopulmonary arrest with anoxic brain injury: Management as above. MRI of the brain ordered. CT of the brain suggestive of anoxic brain injury. * She was noted with seizure in the ED as well. EEG ordered. Urine tox also ordered. * #UTI: on Vanco and meropenem. Urine cultures as well as blood cultures pending. #A-fib: Was on Coumadin. INR was subtherapeutic so CT of the chest was ordered which showed no evidence of PE. #GERD: On PPI Hypertension: BP meds on hold due to patient's critical presentation. #Hyperlipidemia: Statins on hold #Morbid obesity: BMI is 39.9. Complicates acute care, expected recovery and prognosis. DVT prophylaxisL SCDs Code status: full code Prognosis: poor Total time spent on evaluation and management of patient, reviewing chart and specialist notes, discussing plan with patient, discussion with nursing and ancillary staff as well as documentation: 50 mins Charges/Coding Visit Charges Inpatient E&M: 36791 Subs Hosp L3
[2022-12-24 18:21] LABS: Bedside Glucose 125 mg/dL (74-106)
[2022-12-24] MEDS: 0.9% Saline Lock 10 ML Syringe IV (21:02)
[2022-12-25] VITALS (32 sets, daily range): BP systolic 106–140; BP diastolic 39–66; PULSE 60–81; RESP 10–20; TEMP 35.9–37.4; O2SAT 89–99; BMI 39.0
[2022-12-25 00:15] LABS: Bedside Glucose 134 mg/dL (74-106)
--- NOTE | 2022-12-25 03:42 | PCM.RX.CS ---
Consult Pharmacy has been consulted to manage selected antiobiotic: Vancomycin Type of Consult: Follow-up Labs: Sodium 139 mmol/L (136-145) 12/24/22 04:10 Potassium 4.5 mmol/L (3.5-5.1) 12/24/22 04:10 Chloride 96 mmol/L (98-107) L 12/24/22 04:10 Carbon Dioxide 41.0 mmol/L (21.0-32.0) H 12/24/22 04:10 Anion Gap 2 (5-15) L 12/24/22 04:10 BUN 26 mg/dL (7-18) H 12/24/22 04:10 Creatinine 0.75 mg/dL (0.55-1.02) 12/24/22 04:10 Est GFR (MDRD) Af Amer 95 mL/min (>60) 12/24/22 04:10 Est GFR (MDRD) Non-Af 79 mL/min (>60) 12/24/22 04:10 BUN/Creatinine Ratio 34.5 RATIO (10-20) H 12/24/22 04:10 Glucose 128 mg/dL (74-106) H 12/24/22 04:10 Microbiology: Microbiology 12/23/22 12:31 Sputum, Expectorated/Coughed Gram Stain - Final 12/23/22 12:31 Sputum, Expectorated/Coughed Respiratory Culture - Preliminary Appears to be normal respiratory jennifer. Further studies to follow. 12/23/22 04:31 Urine Catheter - Catheter Urine Culture - Preliminary Gram negative boni Pharmacy Plan for Drug Dosing: Pharmacy Service will continue to monitor and adjust dosing as required. TROUGH NOT DRAWN, RESCHEDULE PRIOR TO NEXT DOSE Labs to be done on [date and time ordered]: 12/25 @ 2202
--- NOTE | 2022-12-25 05:22 | RAD_ITS ---
INDICATION: Acute respiratory failure with hypoxemia EXAMINATION/TECHNIQUE: X-RAY - XR Chest 1 View COMPARISON: 12/24/2022. FINDINGS: LINES/DEVICES: Endotracheal tube is stable in position with the tip 1.9 cm from the serge. Enteric tube is stable. LUNGS: Bibasilar atelectasis versus infiltrates. Small right pleural effusion. No evidence of a pneumothorax. MEDIASTINUM AND CARDIOVASCULAR STRUCTURES: Cardiac silhouette is normal in size and contour. Mediastinum is unremarkable. BONES AND SOFT TISSUES: No acute abnormality. RAD/Chest 1 View (Portable) IMPRESSION: Increasing right lower lung opacities consistent with worsening pneumonia. Right pleural effusion. Electronically Signed: Morris Dash DO at 5:51 EDT ,
[2022-12-25 05:40] LABS: Absolute Lymphocyte Count 0.47 X10^3/uL (0.83-4.51); Absolute Neutrophil Count 10.2 X10^3/uL (2.0-7.7); Basophil# 0.03 X10^3/uL; Basophil% 0.3 % (0-1); Eosinophil# 0.01 X10^3/uL; Eosinophils% 0.1 % (0-5); Hematocrit 37.4 % (37-47); Hemoglobin 11.1 g/dL (12.0-15.0); Lymphocyte # 0.47 X10^3/ul (0.83-4.51); Lymphocyte % 4.1 % (19-41); Mean Corp Hgb Conc 29.7 g/dL (32-36); Mean Corpuscular Hgb 29.9 pg (27.0-32.0); Mean Corpuscular Volume 100.8 fL (81-99); Mean Platelet Vol. 10.2 fl (6.2-12.0); Monocyte# 0.64 X10^3/uL; Monocyte% 5.6 % (0-10); NRBC Flagged by Analyzer 0 % (0-5); Neutrophil # 10.24 X10^3/uL (2.7-7.7); Neutrophil % 89.4 % (47-70); POSITIVE DIFFERENTIAL YES; Platelet Count 234 K/mm3 (150-450); RBC Distribution Width CV 15.4 % (11.6-14.6); RBC Distribution Width SD 55.9 fl (35.1-43.9); Red Blood Count 3.71 M/mm3 (4.2-5.4); White Blood Count 11.5 K/mm3 (4.4-11.0)
[2022-12-25] MEDS: Heparin Injection (Vial) 5,000 UNIT/ML VIAL 5000 UNIT SC ×3 (05:52→20:32)
[2022-12-25 06:14] LABS: Differential Indicated SCAN CRITERIA MET
[2022-12-25 06:18] LABS: Anion Gap 1 (5-15); BUN 35 mg/dL (7-18); BUN/Creat Ratio 56.9 RATIO (10-20); Calcium,Total 8.5 mg/dL (8.5-10.1); Chloride 98 mmol/L (98-107); Creatinine, Serum 0.62 mg/dL (0.55-1.02); EST Glomerular Filtration Rate 99 mL/min (>60); Est Glom Filt Rate - Afr Amer 120 mL/min (>60); Estimated Creatinine Clearance 44.36 ml/min; Glucose 147 mg/dL (74-106); Potassium 3.4 mmol/L (3.5-5.1); Sodium Level 141 mmol/L (136-145)
[2022-12-25 06:19] LABS: Vancomycin, Trough Level 20.6 ug/mL (5.0-15.0)
--- NOTE | 2022-12-25 06:48 | NURSING ---
talked to pharm about vanc level being elevated, was told to stop vanc now.
--- NOTE | 2022-12-25 06:56 | PCM.RX.CS ---
Consult Pharmacy has been consulted to manage selected antiobiotic: Vancomycin Type of Consult: Follow-up Labs: Sodium 141 mmol/L (136-145) 12/25/22 05:30 Potassium 3.4 mmol/L (3.5-5.1) L 12/25/22 05:30 Chloride 98 mmol/L (98-107) 12/25/22 05:30 Carbon Dioxide 42.0 mmol/L (21.0-32.0) H 12/25/22 05:30 Anion Gap 1 (5-15) L 12/25/22 05:30 BUN 35 mg/dL (7-18) H 12/25/22 05:30 Creatinine 0.62 mg/dL (0.55-1.02) 12/25/22 05:30 Est GFR (MDRD) Af Amer 120 mL/min (>60) 12/25/22 05:30 Est GFR (MDRD) Non-Af 99 mL/min (>60) 12/25/22 05:30 BUN/Creatinine Ratio 56.9 RATIO (10-20) H 12/25/22 05:30 Glucose 147 mg/dL (74-106) H 12/25/22 05:30 Vancomycin Trough 20.6 ug/mL (5.0-15.0) H 12/25/22 05:30 Microbiology: Microbiology 12/23/22 12:31 Sputum, Expectorated/Coughed Gram Stain - Final 12/23/22 12:31 Sputum, Expectorated/Coughed Respiratory Culture - Preliminary Appears to be normal respiratory jennifer. Further studies to follow. 12/23/22 04:31 Urine Catheter - Catheter Urine Culture - Preliminary Gram negative boni Goal Trough: 15-20 mcg/mL Pharmacy Plan for Drug Dosing: VANCOMYCIN LEVEL RECEIVED Current Vancomycin Dose: 1500MG IV Q12hr Number of Doses Received: 4 Vancomycin Level: 20.6 Hours Since Last Dose: 11.5hr Renal Function: 0.62 Renal Function Trend: stable Lab/Micro: Ucx growing GNR, SCx showing normal respiratory jennifer so far. Vancomycin Plan/Comments: Patient had a trough drawn which resulted in a value of 20.6 (Goal 15-20). Patient's RN called this morning, the patient has their 0600 dose hanging, which started at 0611 this AM. The patient got approx 25% of dose in that time. RN instructed to stop infusion. Will hold subsequent doses of vancomycin and recheck a trough tomorrow morning @0600. Will resume vancomycin once trough is <20. Pending Level: *RANDOM* level 12/26/22 @0600 Pharmacy Service will continue to monitor and adjust dosing as required.
--- NOTE | 2022-12-25 07:02 | NURSING ---
dixie from [employer] [facility] [employer] called and updated about pt status
--- NOTE | 2022-12-25 07:04 | PN.HOSP_ITS ---
Reason for Visit Reason for Visit: Diagnoses Acidosis, unspecified (12/23/22) Mixed disorder of acid-base balance (12/23/22) Obstructive sleep apnea (adult) (pediatric) (12/23/22) Other toxic encephalopathy (12/23/22) Anoxic brain damage, not elsewhere classified (12/23/22) Cardiac arrest, cause unspecified (12/23/22) Unspecified atrial fibrillation (12/23/22) Pneumonia, unspecified organism (12/23/22) Acute and chronic respiratory failure with hypoxia (12/23/22) Acute and chronic respiratory failure with hypercapnia (12/23/22) Disorder of kidney and ureter, unspecified (12/23/22) Urinary tract infection, site not specified (12/23/22) Hyperglycemia, unspecified (12/23/22) Elevation of levels of liver transaminase levels (12/23/22) Abnormal coagulation profile (12/23/22) Subjective Subjective Remains intubated and mechanically ventilated. Has been A-fib/flutter with variable block on telemetry. Objective Data Objective Data Vital Signs: Vital Signs Temp Pulse Resp BP Pulse Ox O2 Del Method FiO2 97.7 F L 81 11 L 118/39 L 94 Mechanical Ventilator 50 12/25/22 07:00 12/25/22 07:00 12/25/22 07:00 12/25/22 07:00 12/25/22 07:00 12/25/22 07:00 12/25/22 07:00 Oxygen Delivery Method Mechanical Ventilator Weight: 112.8 kg Body Mass Index (BMI) 39.0 Intake & Output: Intake and Output for Last 24 Hours 12/23/22 12/24/22 12/25/22 23:59 23:59 23:59 Intake Total 1930.00 / 1930.00 2083.67 / 2083.67 632 / 632 Output Total 800 / 1950 1775 / 1900 300 / 300 Balance 1130.00 / -20.00 308.67 / 183.67 332 / 332 Lab / Micro Data Result Diagrams: 12/25/22 05:30 12/25/22 05:30 Labs: Laboratory Results - last 24 hr 12/24/22 17:58: POC Glucose 125 H 12/24/22 23:55: POC Glucose 134 H 12/25/22 05:30: WBC 11.5 H, RBC 3.71 L, Hgb 11.1 L, Hct 37.4, MCV 100.8 H, MCH 29.9, MCHC 29.7 L D, RDW Std Deviation 55.9 H, RDW Coeff of Bonny 15.4 H, Plt Count 234, MPV 10.2, Immature Gran % (Auto) 0.500, Neut % (Auto) 89.4 H, Lymph % (Auto) 4.1 L, [place] % (Auto) 5.6, Eos % (Auto) 0.1, Baso % (Auto) 0.3, Absolute Neuts (auto) 10.2 H, Absolute Lymphs (auto) 0.47 L, Nucleated RBC % 0, Differential Comment COMMENT 12/25/22 05:30: Sodium 141, Potassium 3.4 L, Chloride 98, Carbon Dioxide 42.0 H, Anion Gap 1 L, BUN 35 H, Creatinine 0.62, Estim Creat Clear Calc 44.36, Est GFR (MDRD) Af Amer 120, Est GFR (MDRD) Non-Af 99, BUN/Creatinine Ratio 56.9 H, Glucose 147 H, Calcium 8.5 12/25/22 05:30: Vancomycin Trough 20.6 H Micro: Microbiology 12/23/22 12:31 Sputum, Expectorated/Coughed Gram Stain - Final 12/23/22 12:31 Sputum, Expectorated/Coughed Respiratory Culture - Preliminary Appears to be normal respiratory jennifer. Further studies to follow. 12/23/22 04:31 Urine Catheter - Catheter Urine Culture - Preliminary Gram negative boni Radiography Diagnostic Testing: Radiology Impression Chest X-Ray 12/25/22 05:22 IMPRESSION: Increasing right lower lung opacities consistent with worsening pneumonia. Right pleural effusion. Electronically Signed: Morris Dash DO at 5:51 EDT , Physical Exam Narrative General: Intubated HEENT: Atraumatic Eyes: Eyes closed, no spontaneous eye opening Neck: Supple Respiratory: Mechanically ventilated, sounded slightly coarse at bases Cardiovascular: Irregularly irregular GI: Soft, nondistended Extremities: Trace edema in lower extremity Musculoskeletal: Unable to cooperate to test strength Neuro: Unable to cooperate Skin: Chronic skin changes lower extremities Psych: Unable to cooperate Assessment & Plan Assessment/Plan (1) Toxic metabolic encephalopathy: (2) UTI (urinary tract infection): (3) Acute on chronic respiratory failure with hypoxia and hypercapnia: (4) Cardiac arrest: (5) Pneumonia: (6) Obstructive sleep apnea: (7) Renal insufficiency: (8) Atrial fibrillation: (9) Transaminitis: PLAN: Plan #Cardiopulmonary arrest with concern for anoxic brain injury -Had CPR by [facility] staff and required epi and defibrillation to achieve ROSC -Echo on 12/19/2022 with EF of 65% and moderate bilateral atrial enlargement and trivial mitral valve insufficiency -Remains intubated and off sedatives -There was concern for seizure-like activity in ED and she remains on Keppra -EEG with no discernible PDR, diffuse suppression with only 5 bursts and 25 minutes in the impression is EEG suggesting severe diffuse encephalopathy. #Acute hypoxic and hypercapnic respiratory failure -Likely secondary to cardiopulmonary arrest -CT chest on admission negative for PE but had bilateral mild pulmonary edema and bilateral pleural effusions with compressive atelectasis -Had breathing trial today and was apneic -Chest x-ray with worsening right lower lobe infiltrate #Urinary tract infection -Vancomycin discontinued, remains on cefepime -Urine culture with Proteus mirabilis but colony count 25,000-50,000 -Blood cultures no growth to date #Elevated troponin -Initial troponin 29 with peak at 139 -Very likely secondary to her hypoxia and cardiopulmonary arrest #Atrial fibrillation -Was on Coumadin at home -Is in critical condition, continue DVT prophylaxis dose at this time and if improves can consider reinitiating full dose anticoagulation #Morbid obesity -BMI 38.9 kg/m? -Complicates treatment, prognosis, outcomes -Recommend weight loss and lifestyle changes #Acute metabolic acidosis secondary to lactic acid elevation resolved #DVT ppx: Heparin subcu Vani Ryan MD Time spent in the patient's overall evaluation,decision-making process, review of diagnostic data, adjustment of management, discussion with other providers, nursing nursing and ancillary staff involved in patient's care documentation, 30 minutes Charges/Coding Visit Charges Inpatient E&M: 74642 Subs Hosp L2
[2022-12-25 07:10] LABS: Base Excess 21 mmol/L (-2 to +2); Bicarbonate 45.5 mmol/L (22-26); Blood Gas Specimen Type ART; FI02 50; Mode AC; PEEP 8; PO2 99 mmHG (75-100); RR 10; SITE L Radial; SO2 97 % (95-99); Total Carbon Dioxide 48 mmol/L; Vt 325; pCO2 70.9 mmHg (35-45); pH 7.42 (7.35-7.45)
--- NOTE | 2022-12-25 08:04 | PN.CC_ITS ---
Assessment & Plan Assessment/Plan (1) Toxic metabolic encephalopathy: (2) UTI (urinary tract infection): (3) Acute on chronic respiratory failure with hypoxia and hypercapnia: (4) Cardiac arrest: (5) Pneumonia: (6) Obstructive sleep apnea: (7) Renal insufficiency: (8) Atrial fibrillation: (9) Transaminitis: PLAN: Plan RECOMMENDATIONS: 1. Discussed with family about goals of therapy 2. Continue mechanical ventilation at current settings 3. Discuss with family about goals of therapy 4. Continue spontaneous breathing and awakening trials per protocol 5. Discontinue vancomycin. 6. Clarify CODE STATUS IMPRESSIONS: 1. Acute on chronic combined respiratory failure secondary to cardiac arrest with possible aspiration Patient still with increased AA gradient and chronic CO2 retention that is fully compensated on the current vent settings. Patient with apnea this morning, but patient still has some cranial reflexes, adequate pH and no exposure to opiates. Some concern for anoxic injury. Patient likely does not require vancomycin. Patient has an allergy reported to penicillins. Patient does have progressing right lower lobe infiltrates and would likely benefit from continued antibiotics. Given patient tolerance of cefepime, could challenge with Unasyn as aspiration pneumonia is the predominant infectious suspicion. Defer to primary service. 2. Anoxic encephalopathy following cardiac arrest Clinical suspicion for primary heart arrhythmia leading to current issues. Patient has had episodes of severe bradycardia while in the intensive care unit. It is unclear if this was related to potential seizures. Patient does have a baseline of A-fib. Patient did not have any findings of hemorrhagic stroke on previous imaging. 3. JUST[place]/CKD/A-fib/hypertension/GERD/advanced age/obesity/possible new onset seizure Complicates care, management, recovery and prognosis. Patient is not on anticoagulation secondary to concerns for hemorrhagic conversion. Blood pressures have been adequate. Allowing for an element of permissive hyper tension given problem #2. Renal function is normalizing. We will continue to replete electrolytes as necessary. Unclear if seizure activity is related to anoxia. Patient remains on Keppra. Overall prognosis is very poor TIME: 34 minutes of critical care time spent addressing patient's respiratory failure, anoxic encephalopathy, review of all data and collaboration with care team Subjective Subjective Patient has done okay overnight from a hemodynamic standpoint. Patient co ntinues to not require any sedation or pain medications. Patient has had some spontaneous movement, continues to have a cough, gag and pain reflex. This morning, patient had a spontaneous breathing trial, but at apnea Objective Data Objective Data Vital Signs: Vital Signs Temp Pulse Resp BP Pulse Ox O2 Del Method FiO2 36.5 C L 81 11 L 118/39 L 94 Mechanical Ventilator 50 12/25/22 07:00 12/25/22 07:00 12/25/22 07:00 12/25/22 07:00 12/25/22 07:00 12/25/22 07:00 12/25/22 07:00 Oxygen Delivery Method Mechanical Ventilator Weight: 112.8 kg Body Mass Index (BMI) 39.0 Intake & Output: Intake and Output for Last 24 Hours 12/23/22 12/24/22 12/25/22 23:59 23:59 23:59 Intake Total 1930.00 / 1930.00 2083.67 / 2083.67 632 / 632 Output Total 800 / 1950 1775 / 1900 300 / 300 Balance 1130.00 / -20.00 308.67 / 183.67 332 / 332 Lab / Micro Data Attestation: I reviewed the patient's lab results. Result Diagrams: 12/25/22 05:30 12/25/22 05:30 Labs: Laboratory Results - last 24 hr 12/24/22 17:58: POC Glucose 125 H 12/24/22 23:55: POC Glucose 134 H 12/25/22 05:30: WBC 11.5 H, RBC 3.71 L, Hgb 11.1 L, Hct 37.4, MCV 100.8 H, MCH 29.9, MCHC 29.7 L D, RDW Std Deviation 55.9 H, RDW Coeff of Bonny 15.4 H, Plt Count 234, MPV 10.2, Immature Gran % (Auto) 0.500, Neut % (Auto) 89.4 H, Lymph % (Auto) 4.1 L, [place] % (Auto) 5.6, Eos % (Auto) 0.1, Baso % (Auto) 0.3, Absolute Neuts (auto) 10.2 H, Absolute Lymphs (auto) 0.47 L, Nucleated RBC % 0, Differe ntial Comment COMMENT 12/25/22 05:30: Sodium 141, Potassium 3.4 L, Chloride 98, Carbon Dioxide 42.0 H, Anion Gap 1 L, BUN 35 H, Creatinine 0.62, Estim Creat Clear Calc 44.36, Est GFR (MDRD) Af Amer 120, Est GFR (MDRD) Non-Af 99, BUN/Creatinine Ratio 56.9 H, Glucose 147 H, Calcium 8.5 12/25/22 05:30: Vancomycin Trough 20.6 H Micro: Microbiology 12/23/22 04:31 Urine Catheter - Catheter Urine Culture - Final Proteus mirabilis 12/23/22 12:31 Sputum, Expectorated/Coughed Gram Stain - Final 12/23/22 12:31 Sputum, Expectorated/Coughed Respiratory Culture - Preliminary Appears to be normal respiratory jennifer. Further studies to follow. ABG Data ABG results: ABG 12/25/22 07:02 Specimen Type ART Sample Site L Radial pH 7.42 Bicarbonate Actual 45.5 H Total CO2 48 Base Excess 21 H O2 Saturation 97 O2 % 50 ABG pCO2 70.9 H* ABG pO2 99 Respiration Rate 10 Vent Mode AC Tidal Volume 325 POC PEEP 8 Crit Call To/Read Back Yes Blood Gas Notified Whom FRANCO Attestation: I personally reviewed and interpreted this ABG as follows: (Fully compensated chronic respiratory acidosis with increased AA gradient) Radiography Diagnostic Testing: Radiology Impression Chest X-Ray 12/25/22 05:22 IMPRESSION: Increasing right lower lung opacities consistent with worsening pneumonia. Right pleural effusion. Electronically Signed: Morris Dash DO at 5:51 EDT , Physical Exam Const Constitutional Narrative: Patient intubated and sedated. RASS score -4. HEENT normocephalic, head/scalp atraumatic and moist oral mucous membranes Eyes PERRL, EOMs intact bilaterally and conjunctivae normal Neck no lymphadenopathy, supple and no carotid bruits Lymph Lymphatic: no lymphadenopathy noted Resp no retractions and no use of accessory muscles Auscultation: rhonchi right lower; Negative for rales or wheezes Cardio regular rate, S1 normal heart sound, S2 normal heart sound and no murmurs; Negative for no rub, no gallops or no clicks Rhythm: abnormal rhythm irregularly irregular GI normal to inspection, nondistended, normoactive bowel sounds, soft to palpation and non-tender Extremity normal capillary refill, no clubbing, cyanosis or edema and no calf tenderness Skin no wounds, skin turgor normal, no jaundice, no petechiae and no mottling General Skin Exam: no breakdown Neuro Neuro Narrative: intubated, RASs score is -4. Patient does have a gag and cough reflex. Patient was some spontaneous lower extremity movement. Psych Mood & Affect: flat affect Charges/Coding Procedures Hospitalists Procedures: 05471 Critial Care 1st Hr
[2022-12-25] MEDS: Potassium Chloride 10mEq/100mL 10 MEQ/100 ML IV.SOLN. 100 MEQ IV BOLUS ×2 (08:09→09:19)
[2022-12-25] MEDS: 0.9% Saline Lock 10 ML Syringe IV (08:10)
[2022-12-25 09:07] LABS: Magnesium 2.3 mg/dL (1.6-2.6)
[2022-12-25] MEDS: CHLORHEXIDINE GLUC 2% CLOTH 1 EACH TOWELETTE TOPICAL (10:08)
[2022-12-25] MEDS: Chlorhexidine 15 ML PO ×2 (10:08→20:37)
--- NOTE | 2022-12-25 11:21 | CASEMGMT ---
Social Work Pt has HCPOA and MOLST form on file. Cousin, Martha, is HCPOA. Printed and placed on chart. SW contacted Martha to follow up on care. Introduced self and role. Cousin reports she spoke with Dr. Saldana yesterday. Jasonsin requested and Dr. Saldana agreed to extend pulling care up to 8-10 days to allow time for out of town family to visit pt. Cousin already retrieved pt's belongings from [facility], as pt will not be returning. AMBROCIO updated Dr. Barrera with information cousin provided. Dr. Barrera agreed to be conservative with pulling care for family to visit, however, would like to speak in person with cousin about further information. offered to meet with cousin this afternoon from 1-3 pm. AMBROCIO contacted cousin and inquired about presenting to hospital to speak with Dr. Barrera. Cousin agreed and will be arriving closer to 3 pm. IDT updated. KULDEEP Harry
[2022-12-25 15:10] LABS: Bedside Glucose 142 mg/dL (74-106)
[2022-12-25 17:26] LABS: Bedside Glucose 140 mg/dL (74-106)
[2022-12-25] MEDS: Vital High Protein 1,000 ML 35 ML GT (21:19)
[2022-12-25 23:30] LABS: Bedside Glucose 124 mg/dL (74-106)
[2022-12-26] VITALS (33 sets, daily range): BP systolic 112–133; BP diastolic 43–66; PULSE 55–93; RESP 6–21; TEMP 37.3–37.8; O2SAT 93–99; BMI 39.9
[2022-12-26 04:06] LABS: Absolute Lymphocyte Count 0.59 X10^3/uL (0.83-4.51); Absolute Neutrophil Count 6.4 X10^3/uL (2.0-7.7); Basophil# 0.02 X10^3/uL; Basophil% 0.3 % (0-1); Eosinophil# 0.03 X10^3/uL; Eosinophils% 0.4 % (0-5); Hematocrit 33.8 % (37-47); Hemoglobin 10.1 g/dL (12.0-15.0); Lymphocyte # 0.59 X10^3/ul (0.83-4.51); Lymphocyte % 7.6 % (19-41); Mean Corp Hgb Conc 29.9 g/dL (32-36); Mean Corpuscular Hgb 30.6 pg (27.0-32.0); Mean Corpuscular Volume 102.4 fL (81-99); Mean Platelet Vol. 10.5 fl (6.2-12.0); NRBC Flagged by Analyzer 0 % (0-5); Neutrophil # 6.36 X10^3/uL (2.7-7.7); Neutrophil % 82.2 % (47-70); POSITIVE DIFFERENTIAL YES; Platelet Count 218 K/mm3 (150-450); RBC Distribution Width CV 15.2 % (11.6-14.6); RBC Distribution Width SD 56.1 fl (35.1-43.9); White Blood Count 7.7 K/mm3 (4.4-11.0)
[2022-12-26 04:33] LABS: Differential Indicated SCAN CRITERIA MET
[2022-12-26 04:37] LABS: Differential Comment SCANNED
[2022-12-26 04:43] LABS: ALB/GLOB Ratio 0.6 RATIO (0.9-2.4); AST(SGOT) 111 U/L (15-37); Alanine Aminotransfer ALT/SGPT 115 U/L (13-56); Albumin, Serum 2.2 g/dL (3.2-5.0); Alkaline Phosphatase 72 U/L (45-117); Anion Gap -1 (5-15); BUN 35 mg/dL (7-18); BUN/Creat Ratio 66.7 RATIO (10-20); Calcium,Total 8.5 mg/dL (8.5-10.1); Chloride 101 mmol/L (98-107); Creatinine, Serum 0.52 mg/dL (0.55-1.02); EST Glomerular Filtration Rate 119 mL/min (>60); Est Glom Filt Rate - Afr Amer 144 mL/min (>60); Estimated Creatinine Clearance 44.36 ml/min; Globulin 3.8 g/dL (2.2-4.2); Glucose 120 mg/dL (74-106); Potassium 3.5 mmol/L (3.5-5.1); Sodium Level 143 mmol/L (136-145)
[2022-12-26] MEDS: Heparin Injection (Vial) 5,000 UNIT/ML VIAL 5000 UNIT SC ×3 (05:15→21:01)
--- NOTE | 2022-12-26 07:04 | PN.CC_ITS ---
Assessment & Plan Assessment/Plan (1) Toxic metabolic encephalopathy: (2) UTI (urinary tract infection): (3) Acute on chronic respiratory failure with hypoxia and hypercapnia: (4) Cardiac arrest: (5) Pneumonia: (6) Obstructive sleep apnea: (7) Renal insufficiency: (8) Atrial fibrillation: (9) Transaminitis: PLAN: Plan RECOMMENDATIONS: 1. Discussed with family about goals of therapy 2. Continue mechanical ventilation at current settings 3. Add bowel regimen 4. Continue spontaneous breathing and awakening trials per protocol 5. Discontinue vancomycin. Likely continue cefepime for now 6. Decrease PEEP IMPRESSIONS: 1. Acute on chronic combined respiratory failure secondary to cardiac arrest with possible aspiration Patient still with increased AA gradient and chronic CO2 retention that is fully compensated on the current vent settings. Patient with apnea this morning, but patient still has some cranial reflexes, adequate pH and no exposure to opiates. Some concern for anoxic injury. Patient off of vancomycin. Patient has an allergy reported to penicillins. Patient does have progressing right lower lobe infiltrates and would likely benefit from continued antibiotics. Given patient tolerance of cefepime, could challenge with Unasyn as aspiration pneumonia is the predominant infectious suspicion. Given goals of therapy, likely not imperative to change at this time. Defer to primary service. 2. Anoxic encephalopathy following cardiac arrest Clinical suspicion for primary heart arrhythmia leading to current issues. Patient has had episodes of severe bradycardia while in the intensive care unit. It is unclear if this was related to potential seizures. Patient does have a baseline of A-fib. Patient did not have any findings of hemorrhagic stroke on previous imaging. 3. JUST[place]/CKD/A-fib/hypertension/GERD/advanced age/obesity/possible new onset seizure Complicates care, management, recovery and prognosis. Patient is not on anticoagulation secondary to concerns for hemorrhagic conversion. Blood pressures have been adequate. Allowing for an element of permissive hypertension given problem #2. Renal function is normalizing. We will continue to replete electrolytes as necessary. Unclear if seizure activity is related to anoxia. Patient remains on Keppra. Patient has had some increased residuals, so bowel regimen will be added. Overall prognosis is very poor TIME: 36 minutes of critical care time spent addressing patient's respiratory failure, anoxic encephalopathy, review of all data and collaboration with care team Subjective Subjective Patient did okay overnight from a hemodynamic standpoint. Patient has had some increased residuals, but has not required any initiation of drips. Did discuss with the family yesterday about goals of therapy. They agreed to transition to a DNR Comfort Care arrest with intubation. Reportedly there is family that is unable to come in from [place] for approximately a week. Stressed to the family that time and the ventilator should be minimized secondary to concerns for potential harm. They voiced understanding, but there is been no report of an acceleration of the timeline. They were very clear that trach and PEG were not being considered. Objective Data Objective Data Vital Signs: Vital Signs Temp Pulse Resp BP Pulse Ox O2 Del Method FiO2 37.3 C 61 10 L 130/61 H 99 Mechanical Ventilator 45 12/26/22 07:00 12/26/22 07:00 12/26/22 07:00 12/26/22 07:00 12/26/22 07:00 12/26/22 07:00 12/26/22 07:00 Oxygen Delivery Method Mechanical Ventilator Weight: 115.6 kg Body Mass Index (BMI) 39.9 Intake & Output: Intake and Output for Last 24 Hours 12/24/22 12/25/22 12/26/22 23:59 23:59 23:59 Intake Total 2083.67 / 2083.67 2181.25 / 2181.25 100 / 100 Output Total 1775 / 1900 825 / 825 250 / 250 Balance 308.67 / 183.67 1356.25 / 1356.25 -150 / -150 Lab / Micro Data Attestation: I reviewed the patient's lab results. Result Diagrams: 12/26/22 03:45 12/26/22 03:45 Labs: Laboratory Results - last 24 hr 12/25/22 05:30: Magnesium 2.3 12/25/22 13:02: POC Glucose 142 H 12/25/22 17:00: POC Glucose 140 H 12/25/22 23:12: POC Glucose 124 H 12/26/22 03:45: WBC 7.7, RBC 3.30 L, Hgb 10.1 L, Hct 33.8 L, MCV 102.4 H, MCH 30.6, MCHC 29.9 L, RDW Std Deviation 56.1 H, RDW Coeff of Bonny 15.2 H, Plt Count 218, MPV 10.5, Immature Gran % (Auto) 0.500, Neut % (Auto) 82.2 H, Lymph % (Auto) 7.6 L, [place] % (Auto) 9.0, Eos % (Auto) 0.4, Baso % (Auto) 0.3, Absolute Neuts (auto) 6.4, Absolute Lymphs (auto) 0.59 L, Nucleated RBC % 0, Differential Comment SCANNED 12/26/22 03:45: Sodium 143, Potassium 3.5, Chloride 101, Carbon Dioxide 43.0 H, Anion Gap -1 L, BUN 35 H, Creatinine 0.52 L, Estim Creat Clear Calc 44.36, Est GFR (MDRD) Af Amer 144, Est GFR (MDRD) Non-Af 119, BUN/Creatinine Ratio 66.7 H, Glucose 120 H, Calcium 8.5, Total Bilirubin 0.50, AST 111 H, ALT 115 H, Alkaline Phosphatase 72, Total Protein 6.0 L, Albumin 2.2 L, Globulin 3.8, Albumin/Globulin Ratio 0.6 L Micro: Microbiology 12/23/22 04:30 Blood Culture (Wb) - Anticubital Right Blood Culture - Preliminary No growth in 48 hours. 12/23/22 03:59 Blood Culture (Wb) - Left Hand Blood Culture - Preliminary No growth in 48 hours. 12/23/22 12:31 Sputum, Expectorated/Coughed Gram Stain - Final 12/23/22 12:31 Sputum, Expectorated/Coughed Respiratory Culture - Final 12/23/22 04:31 Urine Catheter - Catheter Urine Culture - Final Proteus mirabilis ABG Data ABG results: ABG 12/25/22 07:02 Specimen Type ART Sample Site L Radial pH 7.42 Bicarbonate Actual 45.5 H Total CO2 48 Base Excess 21 H O2 Saturation 97 O2 % 50 ABG pCO2 70.9 H* ABG pO2 99 Respiration Rate 10 Vent Mode AC Tidal Volume 325 POC PEEP 8 Crit Call To/Read Back Yes Blood Gas Notified Whom FRANCO Physical Exam Const Constitutional Narrative: Patient intubated and unresponsive. RASS score -4. HEENT normocephalic, head/scalp atraumatic and moist oral mucous membranes Eyes PERRL, EOMs intact bilaterally and conjunctivae normal Neck no lymphadenopathy, supple and no carotid bruits Lymph Lymphatic: no lymphadenopathy noted Resp no retractions and no use of accessory muscles Auscultation: rhonchi right lower; Negative for rales or wheezes Cardio regular rate, S1 normal heart sound, S2 normal heart sound and no murmurs; Negative for no rub, no gallops or no clicks Rhythm: abnormal rhythm irregularly irregular GI normal to inspection, nondistended, normoactive bowel sounds, soft to palpation and non-tender Extremity normal capillary refill, no clubbing, cyanosis or edema and no calf tenderness Skin no wounds, skin turgor normal, no jaundice, no petechiae and no mottling General Skin Exam: no breakdown Neuro Neuro Narrative: intubated, RASS is -4. Patient does have a gag and cough reflex. Patient was some spontaneous lower extremity movement. Psych Mood & Affect: flat affect Charges/Coding Procedures Hospitalists Procedures: 51093 Critial Care 1st Hr
--- NOTE | 2022-12-26 08:14 | PCM.PN.HOSP ---
Reason for Visit Reason for Visit: Diagnoses Acidosis, unspecified (12/23/22) Mixed disorder of acid-base balance (12/23/22) Obstructive sleep apnea (adult) (pediatric) (12/23/22) Other toxic encephalopathy (12/23/22) Anoxic brain damage, not elsewhere classified (12/23/22) Cardiac arrest, cause unspecified (12/23/22) Unspecified atrial fibrillation (12/23/22) Pneumonia, unspecified organism (12/23/22) Acute and chronic respiratory failure with hypoxia (12/23/22) Acute and chronic respiratory failure with hypercapnia (12/23/22) Disorder of kidney and ureter, unspecified (12/23/22) Urinary tract infection, site not specified (12/23/22) Hyperglycemia, unspecified (12/23/22) Elevation of levels of liver transaminase levels (12/23/22) Abnormal coagulation profile (12/23/22) Subjective Subjective Remains intubated, did not respond to sternal rub despite not being on any sedation Objective Data Objective Data Vital Signs: Vital Signs Temp Pulse Resp BP Pulse Ox O2 Del Method FiO2 99.1 F 62 10 L 130/61 H 96 Mechanical Ventilator 40 12/26/22 07:00 12/26/22 07:12 12/26/22 07:12 12/26/22 07:00 12/26/22 07:12 12/26/22 07:00 12/26/22 07:12 Oxygen Delivery Method Mechanical Ventilator Weight: 115.6 kg Body Mass Index (BMI) 39.9 Intake & Output: Intake and Output for Last 24 Hours 12/24/22 12/25/22 12/26/22 23:59 23:59 23:59 Intake Total 2083.67 / 2083.67 2181.25 / 2181.25 100 / 100 Output Total 1775 / 1900 825 / 825 250 / 250 Balance 308.67 / 183.67 1356.25 / 1356.25 -150 / -150 Lab / Micro Data Result Diagrams: 12/26/22 03:45 12/26/22 03:45 Labs: Laboratory Results - last 24 hr 12/25/22 05:30: Magnesium 2.3 12/25/22 13:02: POC Glucose 142 H 12/25/22 17:00: POC Glucose 140 H 12/25/22 23:12: POC Glucose 124 H 12/26/22 03:45: WBC 7.7, RBC 3.30 L, Hgb 10.1 L, Hct 33.8 L, MCV 102.4 H, MCH 30.6, MCHC 29.9 L, RDW Std Deviation 56.1 H, RDW Coeff of Bonny 15.2 H, Plt Count 218, MPV 10.5, Immature Gran % (Auto) 0.500, Neut % (Auto) 82.2 H, Lymph % (Auto) 7.6 L, [place] % (Auto) 9.0, Eos % (Auto) 0.4, Baso % (Auto) 0.3, Absolute Neuts (auto) 6.4, Absolute Lymphs (auto) 0.59 L, Nucleated RBC % 0, Differential Comment SCANNED 12/26/22 03:45: Sodium 143, Potassium 3.5, Chloride 101, Carbon Dioxide 43.0 H, Anion Gap -1 L, BUN 35 H, Creatinine 0.52 L, Estim Creat Clear Calc 44.36, Est GFR (MDRD) Af Amer 144, Est GFR (MDRD) Non-Af 119, BUN/Creatinine Ratio 66.7 H, Glucose 120 H, Calcium 8.5, Total Bilirubin 0.50, AST 111 H, ALT 115 H, Alkaline Phosphatase 72, Total Protein 6.0 L, Albumin 2.2 L, Globulin 3.8, Albumin/Globulin Ratio 0.6 L Micro: Microbiology 12/23/22 04:30 Blood Culture (Wb) - Anticubital Right Blood Culture - Preliminary No growth in 48 hours. 12/23/22 03:59 Blood Culture (Wb) - Left Hand Blood Culture - Preliminary No growth in 48 hours. 12/23/22 12:31 Sputum, Expectorated/Coughed Gram Stain - Final 12/23/22 12:31 Sputum, Expectorated/Coughed Respiratory Culture - Final 12/23/22 04:31 Urine Catheter - Catheter Urine Culture - Final Proteus mirabilis Physical Exam Narrative General: Intubated HEENT: Atraumatic Eyes: Eyes closed, no spontaneous eye opening Neck: Supple Respiratory: Mechanically ventilated, sounded slightly coarse at bases Cardiovascular: Irregularly irregular GI: Soft, nondistended Extremities: Trace edema in lower extremity Musculoskeletal: Unable to cooperate to test strength Neuro: Unable to cooperate Skin: Chronic skin changes lower extremities Psych: Unable to cooperate Assessment & Plan Assessment/Plan (1) Toxic metabolic encephalopathy: (2) UTI (urinary tract infection): (3) Acute on chronic respiratory failure with hypoxia and hypercapnia: (4) Cardiac arrest: (5) Pneumonia: (6) Obstructive sleep apnea: (7) Renal insufficiency: (8) Atrial fibrillation: (9) Transaminitis: PLAN: Plan #Cardiopulmonary arrest with concern for anoxic brain injury -Had CPR by intermediate staff and required epi and defibrillation to achieve ROSC -Echo on 12/19/2022 with EF of 65% and moderate bilateral atrial enlargement and trivial mitral valve insufficiency -Remains intubated and off sedatives -There was concern for seizure-like activity in ED and she remains on Keppra -EEG with no discernible PDR, diffuse suppression with only 5 bursts and 25 minutes in the impression is EEG suggesting severe diffuse encephalopathy. -12/26: Remains intubated and on no sedation without significant or purposful movement. Pt DNRCC-A. Continue SBT trials #Acute hypoxic and hypercapnic respiratory failure -Likely secondary to cardiopulmonary arrest -CT chest on admission negative for PE but had bilateral mild pulmonary edema and bilateral pleural effusions with compressive atelectasis -Had breathing trial today and was apneic -Chest x-ray with worsening right lower lobe infiltrate -12/26: Remains mechanically ventilated, continue SBT per protocol. Is on cefepime. Can always consider changing coverage for aspiration if resp status worsens or other signs of infection present. Given current presentation and normalization of WBC do not feel it is imperative to change at this time but will consider moving forward. Has listed allergy to ampicillin as hives, tolerating cefepime, however. Could likely challenge with unasyn vs zosyn or add metronidazole #Urinary tract infection -Vancomycin discontinued, remains on cefepime -Urine culture with Proteus mirabilis but colony count 25,000-50,000 -Blood cultures no growth to date -12/26: WBC normalized, on cefepime. #Elevated troponin -Initial troponin 29 with peak at 139 -Very likely secondary to her hypoxia and cardiopulmonary arrest #Atrial fibrillation -Was on Coumadin at home -Is in critical condition, continue DVT prophylaxis dose at this time and if improves can consider reinitiating full dose anticoagulation #Morbid obesity -BMI 38.9 kg/m? -Complicates treatment, prognosis, outcomes -Recommend weight loss and lifestyle changes #Acute metabolic acidosis secondary to lactic acid elevation resolved #DVT ppx: Heparin subcu Vani Ryan MD Time spent in the patient's overall evaluation,decision-making process, review of diagnostic data, adjustment of management, discussion with other providers, nursing nursing and ancillary staff involved in patient's care documentation, 30 minutes Charges/Coding Visit Charges Inpatient E&M: 24733 Subs Hosp L2
[2022-12-26] MEDS: Chlorhexidine 15 ML PO ×2 (09:17→21:06)
[2022-12-26] MEDS: Polyethylene Glycol 3350 17 GM PACKET GT (09:18)
[2022-12-26] MEDS: Senna/Docusate Sodium 1 Tablet 2 TABLET GT ×2 (09:18→21:01)
[2022-12-26] MEDS: CHLORHEXIDINE GLUC 2% CLOTH 1 EACH TOWELETTE TOPICAL (09:18)
[2022-12-26 09:43] LABS: Pathologist Review Reviewed
--- NOTE | 2022-12-26 10:04 | NURSING ---
[facility] called and reported they are no longer following this patient
[2022-12-26 12:36] LABS: Bedside Glucose 110 mg/dL (74-106)
[2022-12-26 13:08] LABS: M R Staph aureus DNA By PCR Negative (Negative); Probe Check PASS; Specimen Processing Control PASS
[2022-12-26 17:16] LABS: Bedside Glucose 109 mg/dL (74-106)
[2022-12-27] VITALS (19 sets, daily range): BP systolic 89–127; BP diastolic 41–69; PULSE 44–69; RESP 3–21; TEMP 35.3–37.7; O2SAT 77–97; BMI 39.9
[2022-12-27 00:11] LABS: Bedside Glucose 104 mg/dL (74-106)
[2022-12-27 04:11] LABS: Absolute Lymphocyte Count 0.67 X10^3/uL (0.83-4.51); Absolute Neutrophil Count 4.1 X10^3/uL (2.0-7.7); Basophil# 0.02 X10^3/uL; Basophil% 0.4 % (0-1); Eosinophil# 0.03 X10^3/uL; Eosinophils% 0.6 % (0-5); Hematocrit 33.2 % (37-47); Hemoglobin 10.1 g/dL (12.0-15.0); Lymphocyte # 0.67 X10^3/ul (0.83-4.51); Lymphocyte % 12.3 % (19-41); Mean Corp Hgb Conc 30.4 g/dL (32-36); Mean Corpuscular Hgb 31.2 pg (27.0-32.0); Mean Corpuscular Volume 102.5 fL (81-99); Monocyte# 0.62 X10^3/uL; Monocyte% 11.4 % (0-10); NRBC Flagged by Analyzer 0 % (0-5); Neutrophil # 4.09 X10^3/uL (2.7-7.7); Neutrophil % 74.9 % (47-70); Platelet Count 231 K/mm3 (150-450); RBC Distribution Width CV 15.1 % (11.6-14.6); RBC Distribution Width SD 56.5 fl (35.1-43.9); Red Blood Count 3.24 M/mm3 (4.2-5.4); White Blood Count 5.5 K/mm3 (4.4-11.0)
[2022-12-27 04:31] LABS: ALB/GLOB Ratio 0.6 RATIO (0.9-2.4); AST(SGOT) 100 U/L (15-37); Alanine Aminotransfer ALT/SGPT 79 U/L (13-56); Albumin, Serum 2.1 g/dL (3.2-5.0); Alkaline Phosphatase 65 U/L (45-117); Anion Gap -1 (5-15); BUN 27 mg/dL (7-18); BUN/Creat Ratio 64.7 RATIO (10-20); Calcium,Total 8.5 mg/dL (8.5-10.1); Chloride 104 mmol/L (98-107); Creatinine, Serum 0.42 mg/dL (0.55-1.02); EST Glomerular Filtration Rate 156 mL/min (>60); Est Glom Filt Rate - Afr Amer 188 mL/min (>60); Estimated Creatinine Clearance 44.36 ml/min; Globulin 3.6 g/dL (2.2-4.2); Glucose 103 mg/dL (74-106); Potassium 3.7 mmol/L (3.5-5.1); Protein, Total 5.7 g/dL (6.4-8.2); Sodium Level 144 mmol/L (136-145)
--- NOTE | 2022-12-27 04:56 | NURSING ---
0440: [facility] notified about patient's loss of reflexes. Loss of cough and gag reflex around 0200. [facility] will continue to follow patient and call for updates.
[2022-12-27] MEDS: Heparin Injection (Vial) 5,000 UNIT/ML VIAL 5000 UNIT SC (05:51)
--- NOTE | 2022-12-27 07:17 | PN.CC_ITS ---
Assessment & Plan Assessment/Plan (1) Toxic metabolic encephalopathy: (2) UTI (urinary tract infection): (3) Acute on chronic respiratory failure with hypoxia and hypercapnia: (4) Cardiac arrest: (5) Pneumonia: (6) Obstructive sleep apnea: (7) Renal insufficiency: (8) Atrial fibrillation: (9) Transaminitis: PLAN: Plan RECOMMENDATIONS: 1. Discussed with family about timing of palliative withdrawal 2. Continue mechanical ventilation at current settings 3. Potential brain evaluation 4. Continue spontaneous breathing and awakening trials per protocol 5. Discontinue vancomycin and cefepime 6. Decrease PEEP IMPRESSIONS: 1. Acute on chronic combined respiratory failure secondary to cardiac arrest with possible aspiration Patient still with increased AA gradient and chronic CO2 retention that is fully compensated on the current vent settings. Patient continues to have apnea, but has lost cranial reflexes. Some concern patient has progressed to brain . Some concern for anoxic injury. Patient off of vancomycin. Patient has an allergy reported to penicillins. Will discontinue cefepime given goals of therapy 2. Anoxic encephalopathy following cardiac arrest Clinical suspicion for primary heart arrhythmia leading to current issues. Patient has had episodes of severe bradycardia while in the intensive care unit. It is unclear if this was related to potential seizures. Patient does have a baseline of A-fib. Patient did not have any findings of hemorrhagic stroke on previous imaging. Given goals of therapy, will hold off on any imaging of the head. 3. JUSTINA/CKD/A-fib/hypertension/GERD/advanced age/obesity/possible new onset seizure Complicates care, management, recovery and prognosis. Patient is not on anticoagulation secondary to concerns for hemorrhagic conversion. Blood pressures have been adequate. Allowing for an element of permissive hypertension given problem #2. Renal function is normalizing. We will continue to replete electrolytes as necessary. Unclear if seizure activity is related to anoxia. Patient remains on Keppra. Bowel regimen did not really affect residuals. Overall prognosis is very poor TIME: 33 minutes of critical care time spent addressing patient's respiratory failure, anoxic encephalopathy, review of all data and collaboration with care team Subjective Subjective Patient with significant neurologic changes overnight. Patient noted to have increased residuals, but more importantly has lost her cough, gag and pupillary reflexes. Patient has had some bradycardic episodes into the 30s, but no medications have been required. Objective Data Objective Data Vital Signs: Vital Signs Temp Pulse Resp BP Pulse Ox O2 Del Method FiO2 36.3 C L 48 L 10 L 92/50 L 95 Mechanical Ventilator 35 12/27/22 07:00 12/27/22 07:02 12/27/22 07:02 12/27/22 07:00 12/27/22 07:02 12/27/22 07:00 12/27/22 07:02 Oxygen Delivery Method Mechanical Ventilator Weight: 115.5 kg Body Mass Index (BMI) 39.9 Intake & Output: Intake and Output for Last 24 Hours 12/25/22 12/26/22 12/27/22 23:59 23:59 23:59 Intake Total 2181.25 / 2181.25 1934.67 / 1934.67 100 / 100 Output Total 825 / 825 1000 / 1000 850 / 850 Balance 1356.25 / 1356.25 934.67 / 934.67 -750 / -750 Lab / Micro Data Attestation: I reviewed the patient's lab results. Result Diagrams: 12/27/22 04:00 12/27/22 04:00 Labs: Laboratory Results - last 24 hr 12/23/22 03:25: Diff Path Review Reviewed 12/26/22 09:00: MRSA (PCR) Negative 12/26/22 12:12: POC Glucose 110 H 12/26/22 16:55: POC Glucose 109 H 12/26/22 23:50: POC Glucose 104 12/27/22 04:00: WBC 5.5, RBC 3.24 L, Hgb 10.1 L, Hct 33.2 L, MCV 102.5 H, MCH 31.2, MCHC 30.4 L, RDW Std Deviation 56.5 H, RDW Coeff of Bonny 15.1 H, Plt Count 231, MPV 10.0, Immature Gran % (Auto) 0.400, Neut % (Auto) 74.9 H, Lymph % (Auto) 12.3 L, [place] % (Auto) 11.4 H, Eos % (Auto) 0.6, Baso % (Auto) 0.4, Absolute Neuts (auto) 4.1, Absolute Lymphs (auto) 0.67 L, Nucleated RBC % 0 12/27/22 04:00: Sodium 144, Potassium 3.7, Chloride 104, Carbon Dioxide 41.0 H, Anion Gap -1 L, BUN 27 H, Creatinine 0.42 L, Estim Creat Clear Calc 44.36, Est GFR (MDRD) Af Amer 188, Est GFR (MDRD) Non-Af 156, BUN/Creatinine Ratio 64.7 H, Glucose 103, Calcium 8.5, Total Bilirubin 0.60, AST 100 H, ALT 79 H, Alkaline Phosphatase 65, Total Protein 5.7 L, Albumin 2.1 L, Globulin 3.6, Albumin/Globulin Ratio 0.6 L Micro: Microbiology 12/23/22 04:30 Blood Culture (Wb) - Anticubital Right Blood Culture - Preliminary No growth in 48 hours. 12/23/22 03:59 Blood Culture (Wb) - Left Hand Blood Culture - Preliminary No growth in 48 hours. 12/23/22 12:31 Sputum, Expectorated/Coughed Gram Stain - Final 12/23/22 12:31 Sputum, Expectorated/Coughed Respiratory Culture - Final 12/23/22 04:31 Urine Catheter - Catheter Urine Culture - Final Proteus mirabilis Physical Exam Const Constitutional Narrative: Patient intubated and unresponsive. RASS score -5. General Appearance: patient mechanically ventilated HEENT normocephalic, head/scalp atraumatic and moist oral mucous membranes Eyes PERRL, EOMs intact bilaterally and conjunctivae normal Neck no lymphadenopathy, supple and no carotid bruits Lymph Lymphatic: no lymphadenopathy noted Resp no retractions and no use of accessory muscles Auscultation: Negative for rales or wheezes Cardio regular rate, S1 normal heart sound, S2 normal heart sound and no murmurs; Nega tive for no rub, no gallops or no clicks Rhythm: abnormal rhythm irregularly irregular GI normal to inspection, nondistended, normoactive bowel sounds, soft to palpation and non-tender Extremity normal capillary refill, no clubbing, cyanosis or edema and no calf tenderness Skin no wounds, skin turgor normal, no jaundice, no petechiae and no mottling General Skin Exam: no breakdown Neuro Neuro Narrative: Patient no longer has a cough or gag reflex. Patient does not localize to painful stimuli Psych Mood & Affect: flat affect Charges/Coding Procedures Hospitalists Procedures: 12598 Critial Care 1st Hr
--- NOTE | 2022-12-27 09:04 | PCM.PN.HOSP ---
Reason for Visit Reason for Visit: Diagnoses Acidosis, unspecified (12/23/22) Mixed disorder of acid-base balance (12/23/22) Obstructive sleep apnea (adult) (pediatric) (12/23/22) Other toxic encephalopathy (12/23/22) Anoxic brain damage, not elsewhere classified (12/23/22) Cardiac arrest, cause unspecified (12/23/22) Unspecified atrial fibrillation (12/23/22) Pneumonia, unspecified organism (12/23/22) Acute and chronic respiratory failure with hypoxia (12/23/22) Acute and chronic respiratory failure with hypercapnia (12/23/22) Disorder of kidney and ureter, unspecified (12/23/22) Urinary tract infection, site not specified (12/23/22) Hyperglycemia, unspecified (12/23/22) Elevation of levels of liver transaminase levels (12/23/22) Abnormal coagulation profile (12/23/22) Subjective Subjective Remains intubated, heart rate 51, blood pressure 95/41 during exam. Objective Data Objective Data Vital Signs: Vital Signs Temp Pulse Resp BP Pulse Ox O2 Del Method FiO2 96.9 F L 51 L 10 L 95/41 L 94 Mechanical Ventilator 35 12/27/22 08:00 12/27/22 08:00 12/27/22 08:00 12/27/22 08:00 12/27/22 08:00 12/27/22 08:00 12/27/22 08:00 Oxygen Delivery Method Mechanical Ventilator Weight: 115.5 kg Body Mass Index (BMI) 39.9 Intake & Output: Intake and Output for Last 24 Hours 12/25/22 12/26/22 12/27/22 23:59 23:59 23:59 Intake Total 2181.25 / 2181.25 1934.67 / 1934.67 100 / 100 Output Total 825 / 825 1000 / 1000 2049 / 2049 Balance 1356.25 / 1356.25 934.67 / 934.67 -1950 / -1950 Lab / Micro Data Result Diagrams: 12/27/22 04:00 12/27/22 04:00 Labs: Laboratory Results - last 24 hr 12/23/22 03:25: Diff Path Review Reviewed 12/26/22 09:00: MRSA (PCR) Negative 12/26/22 12:12: POC Glucose 110 H 12/26/22 16:55: POC Glucose 109 H 12/26/22 23:50: POC Glucose 104 12/27/22 04:00: WBC 5.5, RBC 3.24 L, Hgb 10.1 L, Hct 33.2 L, MCV 102.5 H, MCH 31.2, MCHC 30.4 L, RDW Std Deviation 56.5 H, RDW Coeff of Bonny 15.1 H, Plt Count 231, MPV 10.0, Immature Gran % (Auto) 0.400, Neut % (Auto) 74.9 H, Lymph % (Auto) 12.3 L, [place] % (Auto) 11.4 H, Eos % (Auto) 0.6, Baso % (Auto) 0.4, Absolute Neuts (auto) 4.1, Absolute Lymphs (auto) 0.67 L, Nucleated RBC % 0 12/27/22 04:00: Sodium 144, Potassium 3.7, Chloride 104, Carbon Dioxide 41.0 H, Anion Gap -1 L, BUN 27 H, Creatinine 0.42 L, Estim Creat Clear Calc 44.36, Est GFR (MDRD) Af Amer 188, Est GFR (MDRD) Non-Af 156, BUN/Creatinine Ratio 64.7 H, Glucose 103, Calcium 8.5, Total Bilirubin 0.60, AST 100 H, ALT 79 H, Alkaline Phosphatase 65, Total Protein 5.7 L, Albumin 2.1 L, Globulin 3.6, Albumin/Globulin Ratio 0.6 L Micro: Microbiology 12/23/22 04:30 Blood Culture (Wb) - Anticubital Right Blood Culture - Preliminary No growth in 48 hours. 12/23/22 03:59 Blood Culture (Wb) - Left Hand Blood Culture - Preliminary No growth in 48 hours. 12/23/22 12:31 Sputum, Expectorated/Coughed Gram Stain - Final 12/23/22 12:31 Sputum, Expectorated/Coughed Respiratory Culture - Final 12/23/22 04:31 Urine Catheter - Catheter Urine Culture - Final Proteus mirabilis Physical Exam Narrative General: Intubated HEENT: Atraumatic Eyes: Eyes closed, no spontaneous eye opening Neck: Supple Respiratory: Mechanically ventilated Cardiovascular: Regular rate GI: Soft, nondistended Extremities: Trace edema in lower extremity Musculoskeletal: Unable to cooperate to test strength Neuro: Unable to cooperate Skin: Chronic skin changes lower extremities Psych: Unable to cooperate Assessment & Plan Assessment/Plan (1) Toxic metabolic encephalopathy: (2) UTI (urinary tract infection): (3) Acute on chronic respiratory failure with hypoxia and hypercapnia: (4) Cardiac arrest: (5) Pneumonia: (6) Obstructive sleep apnea: (7) Renal insufficiency: (8) Atrial fibrillation: (9) Transaminitis: PLAN: Plan #Cardiopulmonary arrest with concern for anoxic brain injury -Had CPR by long-term staff and required epi and defibrillation to achieve ROSC -Echo on 12/19/2022 with EF of 65% and moderate bilateral atrial enlargement and trivial mitral valve insufficiency -Remains intubated and off sedatives -There was concern for seizure-like activity in ED and she remains on Keppra -EEG with no discernible PDR, diffuse suppression with only 5 bursts and 25 minutes in the impression is EEG suggesting severe diffuse encephalopathy. -12/26: Remains intubated and on no sedation without significant or purposful movement. Pt DNRCC-A. 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 May need formal brain evaluation #Acute hypoxic and hypercapnic respiratory failure -Likely secondary to cardiopulmonary arrest -CT chest on admission negative for PE but had bilateral mild pulmonary edema and bilateral pleural effusions with compressive atelectasis -Had breathing trial today and was apneic -Chest x-ray with worsening right lower lobe infiltrate -12/26: Remains mechanically ventilated, continue SBT per protocol. Is on cefepime. Can always consider changing coverage for aspiration if resp status worsens or other signs of infection present. Given current presentation and normalization of WBC do not feel it is imperative to change at this time but will consider moving forward. Has listed allergy to ampicillin as hives, tolerating cefepime, however. Could likely challenge with unasyn vs zosyn or add metronidazole -12/27: Remains mechanically ventilated, continue current management #Urinary tract infection -Vancomycin discontinued, remains on cefepime -Urine culture with Proteus mirabilis but colony count 25,000-50,000 -Blood cultures no growth to date -12/26: WBC normalized -12/27: Now off abx #Elevated troponin -Initial troponin 29 with peak at 139 -Very likely secondary to her hypoxia and cardiopulmonary arrest #Atrial fibrillation -Was on Coumadin at home -Is in critical condition, continue DVT prophylaxis dose at this time and if improves can consider reinitiating full dose anticoagulation #Morbid obesity -BMI 38.9 kg/m? -Complicates treatment, prognosis, outcomes -Recommend weight loss and lifestyle changes #Acute metabolic acidosis secondary to lactic acid elevation resolved #DVT ppx: Heparin subcu Vani Ryan MD Time spent in the patient's overall evaluation,decision-making process, review of diagnostic data, adjustment of management, discussion with other providers, nursing nursing and ancillary staff involved in patient's care documentation, 30 minutes Charges/Coding Visit Charges Inpatient E&M: 35844 Subs Hosp L2
[2022-12-27] MEDS: Chlorhexidine 15 ML PO (10:03)
[2022-12-27] MEDS: CHLORHEXIDINE GLUC 2% CLOTH 1 EACH TOWELETTE TOPICAL (10:04)
[2022-12-27] MEDS: Senna/Docusate Sodium 1 Tablet 2 TABLET GT (10:05)
[2022-12-27] MEDS: Polyethylene Glycol 3350 17 GM PACKET GT (10:05)
[2022-12-27 12:20] LABS: Bedside Glucose 104 mg/dL (74-106)
--- NOTE | 2022-12-27 12:40 | NURSING ---
Terminally extubated per family request, family at bedside. Emotional support given
--- NOTE | 2022-12-27 15:10 | PCM.DEATH ---
Preliminary Cause of Preliminary Cause of Preliminary Cause of : hypoxic respiratory failure after extubation which was due to anoxic brain injury secondary to cardiopulmonary arrest Date of Admission: 12/23/22 Date of : 12/27/22 Principle Diagnosis Acute on chronic combined respiratory failure secondary to cardiac arrest with possible aspiration pneumonia Problem List: Active and Suspected Problems (Updated 12/23/22 @ 09:[address] Radames Saldana MD) Cardiac arrest (Acute) Metabolic acidosis with respiratory acidosis (Acute) Toxic metabolic encephalopathy (Acute) Anoxic brain injury (Acute) UTI (urinary tract infection) (Acute) Hyperglycemia (Acute) Lactic acidosis (Acute) Subtherapeutic international normalized ratio (INR) (Acute) Transaminitis (Acute) Pneumonia (Acute) Obstructive sleep apnea (Acute) Renal insufficiency (Acute) Supratherapeutic INR (Acute) Atrial fibrillation (Acute) Hospital Course Ms. Croft is a 77-year-old female with a history of JUSTINA, chronic diastolic heart failure, pulm htn, chronic respiratory failure on 3 L home O2, atrial fibrillation, hypertension, ulcer/GERD who presented to [facility] 12/23/2022 due to being unresponsive. She presented from [facility] facility. She was seen normal around midnight the night before and was watching television however around 3 AM she started having difficulty breathing was found to have an oxygen saturation of 50%. She was placed on BiPAP but O2 saturation improved minimally to 70% and she was sent to the ED. Upon arrival from the nursing facility she was undergoing CPR and she had a Abraham airway placed and was given epinephrine and defibrillated and ROSC was achieved. On arrival to the ED her blood pressure was 115/58 and oxygen saturation was 98% with an Ambu bag via Abraham airway. She was intubated at that time. Hemoglobin was 11.9 which was stable, she is chronically on Coumadin her INR was 1.4 and was most recently therapeutic on 12/17 with an INR of 2.0. ABG after intubation showed pH of 7.26 with PCO2 98.4 and a PO2 of 78 demonstrating sat of 98%. Glucose was 196, AST 500 and ALT 307. Initial troponin 29, ammonia was 28, BNP was mildly elevated but improved from previous admission. UA did suggest infection with nitrate, leuk esterase, white cells, 4+ bacteria. CT head in the ED showed subtle findings suggestive of diffuse cerebral edema with possible hypoxic/ischemic injury with no bleed. Chest x-ray with mild airspace disease that was increased and a small right pleural effusion. Cultures obtained and she was started on vancomycin and Zosyn and hospitalist contacted for admission. She had a CTA of the chest checked as she was subtherapeutic on her INR and was severely hypoxic however negative for PE but did show effusions and mild pulmonary edema. Appeared to be fluid overloaded on admission. And she clinically appeared overloaded per H&P. She remained intubated and urine culture grew Proteus and she had remained on cefepime for this. She did not require sedation while she was intubated and clinically continued to deteriorate. EEG with no discernible PDR, diffuse suppression with only 5 bursts and 25 minutes in the impression, EEG suggested severe diffuse encephalopathy. Her hospitalization was also complicated by seizure-like activity which was felt to be due to her brain injury and she was placed on Keppra. Additionally had several episodes of significant bradycardia in the ED with subsequent improvement and then wide variability in heart rate. 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 Patient at 1301 on 12/27/2022 secondary to hypoxic respiratory failure after extubation which was due to anoxic brain injury secondary to cardiopulmonary arrest which was caused by acute on chronic hypoxic respiratory failure secondary to likely fluid overload from HFpEF and pulm HTN exacerbated by difficulty with bipap compliance. Linder r/o aspiration or arrhythmia as contributing or causative factor, however. She had a barium swallow recently that it showed moderate to severe oropharyngeal dysphagia with a high risk of aspiration and cannot rule out aspiration as a contributory cause, Additionally fluid overload is a consideration given her effusions and appearance of fluid overload on admission especially in light of recent admit 4/5 for acute on chronic hypoxic hypercapnic resp failure 2/2 acute exacerbation of HFpEF on top of pulm HTN as well as difficulty with bipap compliance. Lastly she did have bradycardic episodes in ICU and cannot r/o arrhythmia as cause or contributing factor. Additional dx: #Atrial fibrillation #JUSTINA #pulm HTN #UTI Assessment & Plan Assessment/Plan (1) UTI (urinary tract infection): (2) Acute on chronic respiratory failure with hypoxia and hypercapnia: (3) Cardiac arrest: (4) Obstructive sleep apnea: (5) Renal insufficiency: (6) Atrial fibrillation: (7) Transaminitis: PLAN: Plan #Cardiopulmonary arrest with concern for anoxic brain injury- s/p palliative extubation #Acute hypoxic and hypercapnic respiratory failure- secondary to fluid overload from presumed diastolic dysfunction in addition to pulm HTN and poor compliance with bipap vs aspiration vs arrythmia.- s/p palliative extubation #Urinary tract infection 2/2 proteus, was on course of cefepime #Elevated troponin- secondary to above #Atrial fibrillation #Morbid obesity #Acute metabolic acidosis secondary to lactic acid elevation resolved
== END 2022-12-27 14:05 | DRG 207 ==
LOC: ED 05:25 → ICU 05:45
PROVIDERS: Student in an Organized Health Care Education/Training Program; Admitting Provider Internal Medicine; Emergency Provider Emergency Medicine; PCP Family Medicine; Visit Provider Internal Medicine
DX: J96.21 Acute and chronic respiratory failure with hypoxia (principal); G93.6 Cerebral edema; J69.0 Pneumonitis due to inhalation of food and vomit; G92.8 Other toxic encephalopathy; G93.1 Anoxic brain damage, not elsewhere classified; I50.32 Chronic diastolic (congestive) heart failure; I48.92 Unspecified atrial flutter; E66.2 Morbid (severe) obesity with alveolar hypoventilation; Z68.41 Body mass index [BMI] 40.0-44.9, adult; E87.4 Mixed disorder of acid-base balance; N39.0 Urinary tract infection, site not specified; I46.9 Cardiac arrest, cause unspecified; J96.22 Acute and chronic respiratory failure with hypercapnia; I11.0 Hypertensive heart disease with heart failure; I27.20 Pulmonary hypertension, unspecified; I48.0 Paroxysmal atrial fibrillation; K21.9 Gastro-esophageal reflux disease without esophagitis; E78.00 Pure hypercholesterolemia, unspecified; D53.9 Nutritional anemia, unspecified; B96.4 Proteus (mirabilis) (morganii) as the cause of diseases classified elsewhere; N28.9 Disorder of kidney and ureter, unspecified; R74.01 Elevation of levels of liver transaminase levels; Z66 Do not resuscitate; Z91.199 Patient's noncompliance with other medical treatment and regimen due to unspecified reason; Z99.81 Dependence on supplemental oxygen; Z79.01 Long term (current) use of anticoagulants; Z79.899 Other long term (current) drug therapy
CPT/HCPCS: 31500; 31720; 36600; 51702; 70450; 70551; 71045; 71275; 76770; 80048; 80053; 80202; 80307; 80329; 81001; 82140; 82803; 82962; 83605; 83735; 83880; 84100; 84145; 84443; 84484; 85025; 85610; 85730; 87040; 87070; 87077; 87086; 87088; 87186; 87205; 87641; 93005; 94002; 94003; 95819; 97802; 97803; 99252; 99285; J7040; J7050; Q9967; A4216; G0463; G0480